=== PATIENT | female | born 1955 | race Caucasian/White ===

== ENCOUNTER → 2016-06-12 | Outpatient (CLI) | payer MEDICARE, BC ==
--- NOTE | 2016-06-12 15:39 | XR ---
EXAMINATION TYPE: XR chest 2V DATE OF EXAM: 06/12/2016 3:27 PM COMPARISON: 05/06/2016 INDICATION: Cough TECHNIQUE: Frontal and lateral views of the chest are obtained. FINDINGS: The heart size is normal. The pulmonary vasculature is normal. Small posterior left pleural effusion is present. This is stable from comparison. IMPRESSION: 1. Small left pleural effusion
== END | disposition home or self-care (01) ==
LOC: RADXRMAIN 15:13
PROVIDERS: ATTEND Internal Medicine
DX: J90 Pleural effusion, not elsewhere classified (principal)
CPT/HCPCS: 71020

== ENCOUNTER 2016-06-24 14:54 | Inpatient (IN) | payer MEDICARE, BC ==
[2016-06-24] MEDS ORDERED: ASPIRIN 325 MG TAB PO STA (15:38)
[2016-06-24] MEDS ORDERED: methylPREDNISolone SOD SUCCI 125 MG/2 ML VIAL IV STA (15:38)
--- NOTE | 2016-06-24 16:18 | ED ---
URI HPI - General Chief Complaint: Upper Respiratory Infection Stated Complaint: Chest Pain/Numbness Time Seen by Provider: 06/24/16 15:01 Source: patient Mode of arrival: wheelchair Limitations: no limitations - History of Present Illness Initial Comments: 61-year-old female with past medical history of CAD, DM, HLD, HTN, MN , renal disease on dialysis, and thyroid disease presented for evaluation of URI symptoms of productive cough of green sputum for the last month. She states that she has been following with her primary care physician Dr. Campos weekly during this time and has had multiple courses of antibiotics and steroids without relief. She called him today as she was continuing to cough today and he advised that she come to the ED for further evaluation. She states that she just finished a course of azithromycin and methylprednisolone and was actually given another prescription for a second Z-Teto. She has a long- standing history of second hand smoke exposure as well as an underlying history of asthma. She also states there is mold in the home that hasn't been properly investigated. - Related Data Home Medications Medication Instructions Recorded Confirmed Allopurinol [Zyloprim] 100 mg PO DAILY@0900 11/15/14 06/24/16 Gabapentin [Neurontin] 100 mg PO BID@09,209911/15/14 06/24/16 Omeprazole [PriLOSEC] 20 mg PO BID@0900,209901/31/15 06/24/16 Epoetin Adam [Epogen] 4,000 unit IV MOWEFR 03/03/15 06/24/16 Insulin Glargine [Lantus] 30 unit SQ HS 03/03/15 06/24/16 Loperamide [Imodium] 2 mg PO QID PRN 03/03/15 06/24/16 Mv-Min/Vit C/Glu/Karla HCl/Hc124 1 tab PO QID PRN 03/03/15 06/24/16 [Airborne Tablet Chewable] Sertraline [Zoloft] 50 mg PO HS 03/03/15 06/24/16 Atorvastatin [Lipitor] 40 mg PO HS 04/23/15 06/24/16 Clopidogrel [Plavix] 75 mg PO HS 04/23/15 06/24/16 Aspirin [Adult Low Dose Aspirin EC] 81 mg PO HS 05/06/16 06/24/16 Calcium Acetate [PhosLo] 667 mg PO AC-TID 05/06/16 06/24/16 Cinacalcet HCl [Sensipar] 30 mg PO HS 05/06/16 06/24/16 Furosemide [Lasix] 80 mg PO BID 05/06/16 06/24/16 Insulin Aspart [NovoLOG] See Protocol SQ AC-TID 05/06/16 06/24/16 Metoprolol Tartrate [Lopressor] 25 mg PO DIRECTED 05/06/16 06/24/16 Midodrine [ProAmatine] 5 mg PO MOWEFR 05/06/16 06/24/16 Slow-Mag 71.5mg 71.5 mg PO QAM 05/06/16 06/24/16 Slow-Mag 71.5mg 143 mg PO HS 05/06/16 06/24/16 Sodium Bicarbonate Tab 650 mg PO BID 05/06/16 06/24/16 Azithromycin [Zithromax Z-pack] See Taper PO DAILY 06/24/16 06/24/16 Isosorbide Mononitrate ER [Imdur] 30 mg PO QAM 06/24/16 06/24/16 Previous Rx's Medication Instructions Recorded Nitroglycerin Sl Tabs [Nitrostat] 0.4 mg SUBLINGUAL Q5M PRN #25 tab 11/19/14 Allergies Allergy/AdvReac Type Severity Reaction Status Date / Time adhesive Allergy Rash/Hives Verified 06/24/16 15:00 cephalexin monohydrate Allergy Rash/Hives Verified 06/24/16 15:00 [From Keflex] hydromorphone HCl Allergy Hallucinati Verified 06/24/16 15:00 [From Dilaudid] ons iodine Allergy Rash/Hives Verified 06/24/16 15:00 shellfish derived [Shrimp] Allergy Rash/Hives Verified 06/24/16 15:00 hydrocodone bitartrate AdvReac Itching Verified 06/24/16 15:00 [From Vicodin] morphine AdvReac Hallucinati Verified 06/24/16 15:00 ons tramadol AdvReac Itching Verified 06/24/16 15:00 artifical sweetener AdvReac Unknown Uncoded 06/24/16 15:00 Review of Systems ROS Statement: Those systems with pertinent positive or pertinent negative responses have been documented in the HPI. ROS Other: All systems not noted in ROS Statement are negative. Constitutional: Denies: fever, chills Eyes: Denies: eye pain, eye discharge ENT: Denies: ear pain, throat pain Respiratory: Reports: cough, dyspnea. Denies: wheezes, hemoptysis, stridor Cardiovascular: Denies: chest pain, palpitations, dyspnea on exertion Gastrointestinal: Denies: abdominal pain, nausea, vomiting Genitourinary: Denies: urgency, dysuria Musculoskeletal: Denies: back pain, joint swelling Skin: Denies: rash, lesions Neurological: Denies: headache, weakness Psychiatric: Denies: anxiety, depression Past Medical History Past Medical History: Coronary Artery Disease (CAD), Diabetes Mellitus, Hyperlipidemia, Hypertension, Myocardial Infarction ([place]), Renal Disease, Sleep Apnea/CPAP/BIPAP, Thyroid Disorder Additional Past Medical History / Comment(s): GOUT, ANEMIA REQUITRING BLOOD TRANSFUSION, MILD MITRAL,TRICUSID REGURGITATION Last Myocardial Infarction Date:: 11/14/2014 History of Any Multi-Drug Resistant Organisms: None Reported Past Surgical History: Coronary Bypass/CABG, Heart Catheterization With Stent Additional Past Surgical History / Comment(s): AV fistula, PREVIOUS STENTS TO CIRC AND LAD-HAD REOCCLUSION THEN HAD 3 VESSEL CABG Past Anesthesia/Blood Transfusion Reactions: Previous Problems w/ Anesthesia Additional Past Anesthesia/Blood Transfusion Reaction / Comment(s): POST OP DELIRIUM/AGITATION/PSYCHOSIS-RESOLVED. Date of Last Stent Placement:: 11/14/2014 Past Psychological History: Depression Smoking Status: Never smoker Past Alcohol Use History: None Reported Past Drug Use History: None Reported - Past Family History Mother Family Medical History: Diabetes Mellitus, Myocardial Infarction ([place]), Thyroid Disorder Additional Family Medical History / Comment(s): CABG, gout, hypothyroid Sister(s) Family Medical History: Diabetes Mellitus, Thyroid Disorder Father Family Medical History: Diabetes Mellitus General Exam Limitations: no limitations General appearance: alert, in no apparent distress Head exam: Present: atraumatic, normocephalic, normal inspection Eye exam: Present: normal appearance, PERRL. Absent: scleral icterus ENT exam: Present: normal exam, normal oropharynx Neck exam: Present: normal inspection, full ROM. Absent: tenderness Respiratory exam: Present: normal lung sounds bilaterally. Absent: respiratory distress, wheezes Cardiovascular Exam: Present: regular rate, normal rhythm. Absent: bradycardia , tachycardia GI/Abdominal exam: Present: soft. Absent: distended, tenderness, guarding Rectal exam: Present: deferred Extremities exam: Present: normal inspection, full ROM. Absent: tenderness Back exam: Present: normal inspection, full ROM. Absent: tenderness, CVA tenderness (R) Neurological exam: Present: alert, altered, oriented X3 Skin exam: Present: warm, dry, intact, normal color Course Vital Signs 06/24/16 06/24/16 06/24/16 14:56 17:55 18:49 Temperature 98.4 F 98.7 F 98.7 F Pulse Rate 71 75 75 Respiratory 16 20 20 Rate Blood Pressure 110/67 111/56 111/56 O2 Sat by Pulse 97 95 95 Oximetry Medical Decision Making - Medical Decision Making 61-year-old female with significant past medical history presented for evaluation of productive cough of green sputum and shortness of breath for the last month. She states that she has been following up with her primary care physician and has been on multiple courses of antibiotics without any relief. She further states that she was supposed to go to dialysis yesterday but skipped due to not feeling well and rescheduled for today which she also skipped. On physical examination she has clear lung sounds auscultation, a moderate cough throughout physical exam and fistula to the right upper extremity. We'll obtain chest x-ray, labs, and provide breathing treatments and steroids. Labs reveal market acute on chronic renal failure with a creatinine greater than 9 as well as hyperkalemia. The rest of her labs revealed no significant abnormalities. The patient was reevaluated and stated and improvement in her respiratory status. She was informed of her lab results and due to the worsening of her kidney function and no dialysis availability until Sunday she agreed to stay for admission for dialysis. Dr. Lang accepted the admission without further request. Admission order placed in bed request submitted. - Lab Data Result diagrams: 06/24/16 16:17 06/24/16 16: Lab Results 06/24/16 06/24/16 06/24/16 Range/Units 16:17 16:17 16:17 WBC 10.7 H (3.8-10.6) k/uL RBC 3.52 L (3.80-5.40) m/uL Hgb 10.3 L (11.4-16.0) gm/dL Hct 34.6 (34.0-46.0) % MCV 98.3 (80.0-100.0) fL MCH 29.3 (25.0-35.0) pg MCHC 29.8 L (31.0-37.0) g/dL RDW 20.5 H (11.5-15.5) % Plt Count 208 (150-450) k/uL Neutrophils % 76 % Lymphocytes % 16 % Monocytes % 4 % Eosinophils % 3 % Basophils % 1 % Neutrophils # 8.1 H (1.3-7.7) k/uL Lymphocytes # 1.7 (1.0-4.8) k/uL Monocytes # 0.4 (0-1.0) k/uL Eosinophils # 0.3 (0-0.7) k/uL Basophils # 0.1 (0-0.2) k/uL Hypochromasia Marked Poikilocytosis Slight Anisocytosis Moderate Macrocytosis Moderate Sodium (137-145) mmol/L Potassium (3.5-5.1) mmol/L Chloride (98-107) mmol/L Carbon Dioxide (22-30) mmol/L Anion Gap mmol/L BUN (7-17) mg/dL Creatinine (0.52-1.04) mg/dL Est GFR (MDRD) Af Amer (>60 ml/min/1.73 sqM) Est GFR (MDRD) Non-Af (>60 ml/min/1.73 sqM) Glucose (74-99) mg/dL Calcium (8.4-10.2) mg/dL Troponin I 0.098 H* (0.000-0.034) ng/mL Influenza Type A RNA Not Detected (Not Detectd) Influenza Type B (PCR) Not Detected (Not Detectd) 06/24/16 Range/Units 16:17 WBC (3.8-10.6) k/uL RBC (3.80-5.40) m/uL Hgb (11.4-16.0) gm/dL Hct (34.0-46.0) % MCV (80.0-100.0) fL MCH (25.0-35.0) pg MCHC (31.0-37.0) g/dL RDW (11.5-15.5) % Plt Count (150-450) k/uL Neutrophils % % Lymphocytes % % Monocytes % % Eosinophils % % Basophils % % Neutrophils # (1.3-7.7) k/uL Lymphocytes # (1.0-4.8) k/uL Monocytes # (0-1.0) k/uL Eosinophils # (0-0.7) k/uL Basophils # (0-0.2) k/uL Hypochromasia Poikilocytosis Anisocytosis Macrocytosis Sodium 143 (137-145) mmol/L Potassium 5.4 H (3.5-5.1) mmol/L Chloride 104 (98-107) mmol/L Carbon Dioxide 22 (22-30) mmol/L Anion Gap 17 mmol/L BUN 47 H (7-17) mg/dL Creatinine 9.03 H* (0.52-1.04) mg/dL Est GFR (MDRD) Af Amer 5 (>60 ml/min/1.73 sqM) Est GFR (MDRD) Non-Af 4 (>60 ml/min/1.73 sqM) Glucose 181 H (74-99) mg/dL Calcium 7.6 L (8.4-10.2) mg/dL Troponin I (0.000-0.034) ng/mL Influenza Type A RNA (Not Detectd) Influenza Type B (PCR) (Not Detectd) 06/25/16 02:55 EKG shows normal sinus rhythm with a ventricular rate of 72 WATSON 146, QRS 96, QT/ QTC 4:30/470. This is unchanged from previous exams. Disposition Clinical Impression: Acute on chronic renal failure, Cough Disposition: ADMITTED IP TO THIS HOSP Condition: Stable Decision to Admit Reason: Admit from EC Decision Date: 06/24/16 Decision Time: 17:53
[2016-06-24 16:31] LABS: Anisocytosis Moderate; Basophils # (A) 0.1 k/uL (0-0.2); Basophils % (A) 1 %; CH 30.1; CHCM 30.7; Eosinophils # (A) 0.3 k/uL (0-0.7); Eosinophils % (A) 3 %; HCT 34.6 % (34.0-46.0); HDW 3.46; HGB 10.3 gm/dL (11.4-16.0); Hypochromasia Marked; Luc % (Auto) 1; Lymphocytes # (A) 1.7 k/uL (1.0-4.8); Lymphocytes % (A) 16 %; MCH 29.3 pg (25.0-35.0); MCHC 29.8 g/dL (31.0-37.0); MCV 98.3 fL (80.0-100.0); Macrocytosis Moderate; Mean Platelet Volume 8.4; Monocytes # (A) 0.4 k/uL (0-1.0); Monocytes % (A) 4 %; Neutrophils # (A) 8.1 k/uL (1.3-7.7); Neutrophils % (A) 76 %; Poikilocytosis Slight; RBC 3.52 m/uL (3.80-5.40); RDW 20.5 % (11.5-15.5); WBC 10.7 k/uL (3.8-10.6); WBC (Perox) 10.82
[2016-06-24 16:38] LABS: Calcium 7.6 mg/dL (8.4-10.2); Potassium 5.4 mmol/L (3.5-5.1)
--- NOTE | 2016-06-24 17:05 | XR ---
EXAMINATION TYPE: XR chest 2V DATE OF EXAM: 06/24/2016 4:38 PM COMPARISON: 06/12/2016 HISTORY: Cough for weeks TECHNIQUE: Frontal and lateral views of the chest are obtained. FINDINGS: There is mild blunting of left costophrenic angle. There is no heart failure. There are st ernal wires. There are no hilar masses. The bony thorax is intact. IMPRESSION: There is pleural diaphragmatic scarring or fluid on the left side that is unchanged comp ared to last exam. Borderline cardiomegaly. No gross heart failure.
[2016-06-24] MEDS ORDERED: NALOXONE 0.4 MG/ML 1 ML VIAL IV PRN (17:47)
[2016-06-24] MEDS ORDERED: LOPERAMIDE 2 MG CAP PO PRN (17:51)
[2016-06-24 19:03] LABS: Glucose,Whole Blood 173 mg/dL (75-99)
[2016-06-24 21:05] LABS: Glucose,Whole Blood 346 mg/dL (75-99)
[2016-06-24] MEDS: ATORVASTATIN 40 MG TAB PO SCH (21:51)
[2016-06-24] MEDS: CLOPIDOGREL 75 MG TAB PO SCH (21:51)
[2016-06-24] MEDS: INSULIN LISPRO (humaLOG) 300 UNIT/3 ML VIAL SQ SCH (21:51)
[2016-06-24] MEDS: INSULIN GLARGINE 100 UNIT/ML 10 ML VIAL SQ SCH (21:51)
[2016-06-24] MEDS: FUROSEMIDE 80 MG TAB PO SCH (21:51)
[2016-06-24] MEDS: GABAPENTIN 100 MG CAP PO SCH (21:51)
[2016-06-24] MEDS: CINACALCET 30 MG TAB PO SCH (21:51)
[2016-06-24] MEDS: SERTRALINE 50 MG TAB PO SCH (21:52)
[2016-06-24] MEDS: PANTOPRAZOLE 40 MG TABLET PO SCH (21:52)
[2016-06-24] MEDS: SODIUM BICARBONATE TAB 650 MG TAB PO SCH (21:52)
[2016-06-24] MEDS: guaiFENesin-DM 100-10MG/5ML 10 ML CUP PO PRN (21:53)
[2016-06-25] MEDS: guaiFENesin-DM 100-10MG/5ML 10 ML CUP PO PRN ×3 (03:23→18:34)
[2016-06-25 06:00] LABS: Glucose,Whole Blood 300 mg/dL (75-99)
[2016-06-25 06:11] LABS: Anisocytosis Slight; Basophils % (A) 0 %; CHCM 28.6; Eosinophils % (A) 0 %; HCT 36.3 % (34.0-46.0); HDW 3.26; HGB 10.7 gm/dL (11.4-16.0); Hypochromasia Marked; Luc # (Auto) 0.04; Luc % (Auto) 0; Lymphocytes # (A) 0.6 k/uL (1.0-4.8); Lymphocytes % (A) 6 %; MCHC 29.5 g/dL (31.0-37.0); MCV 101.5 fL (80.0-100.0); Macrocytosis Moderate; Mean Platelet Volume 7.7; Monocytes # (A) 0.2 k/uL (0-1.0); Monocytes % (A) 2 %; Neutrophils % (A) 91 %; RBC 3.57 m/uL (3.80-5.40); RDW 19.8 % (11.5-15.5); WBC 9.9 k/uL (3.8-10.6); WBC (Perox) 10.62
[2016-06-25 06:20] LABS: Calcium 7.4 mg/dL (8.4-10.2)
[2016-06-25] MEDS: INSULIN LISPRO (humaLOG) 300 UNIT/3 ML VIAL SQ SCH ×5 (06:22→21:06)
[2016-06-25] MEDS: CALCIUM ACETATE 667 MG CAP PO SCH ×3 (06:22→17:11)
[2016-06-25 06:30] LABS: Potassium 7.5 mmol/L (3.5-5.1)
[2016-06-25] MEDS ORDERED: INSULIN REGULAR 100 UNIT/ML VIAL IV ONE (06:48)
[2016-06-25] MEDS ORDERED: SODIUM POLYSTYRENE SULFONATE 15 GM/60 ML BOTTLE PO STA (06:49)
[2016-06-25] MEDS ORDERED: DEXTROSE 50%-WATER 50 ML SYRINGE IVP STA (06:49)
[2016-06-25] MEDS ORDERED: CALCIUM CHLORIDE 100 MG/ML 10 ML SYRINGE IVP STA (07:20)
[2016-06-25] MEDS ORDERED: CALCIUM GLUCONATE 1,000 MG in SODIUM CHLORIDE 0.9% 100 ML IVPB ONE (07:30)
[2016-06-25] MEDS: PANTOPRAZOLE 40 MG TABLET PO SCH ×2 (07:55→21:07)
--- NOTE | 2016-06-25 09:34 | CONS ---
DATE OF CONSULTATION: 06/25/2016 REASON FOR CONSULTATION: End-stage renal disease. HISTORY OF PRESENT ILLNESS: Patient is a 61-year-old female with a history of end-stage renal disease on hemodialysis on a Sunday, Sunday, Sunday schedule via left arm AV fistula. She was admitted to the hospital with complaints of shortness of breath, not feeling well. The patient believes she has mold at her house. She was treated with Z-Teto recently as well as steroids for an upper respiratory tract infection. The patient denied fever. She did have some cough. No chest pains. No nausea or vomiting. Her potassium yesterday was at 5.4, and this morning it was 7.5. Patient states she has been occasionally missing her dialysis treatments as outpatient because she was not feeling well. 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 Gout. PAST SURGICAL HISTORY: Cardiac catheterization, coronary artery bypass, AV fistula with interventions. SOCIAL HISTORY: Negative for smoking, drug abuse or alcohol abuse. Medications at home prior to admission included: 1. Lipitor. 2. Plavix. 3. Aspirin. 4. PhosLo. 5. Sensipar. 6. Lasix. 7. Insulin. 8. Lopressor. 9. Midodrine. 10. Magnesium. 11. Zithromax. 12. Imdur. 13. Zoloft. 14. Procrit. 15. Neurontin. 16. Prilosec. 17. Zyloprim. ALLERGIES: MULTIPLE INCLUDE: TRAMADOL, VICODIN, IODINE, DILAUDID, KEFLEX AND ADHESIVE. REVIEW OF SYSTEMS: As per HPI. Other systems negative. On examination, the patient is comfortable, awake, alert, oriented x3, not in any acute distress. Blood pressure is 116/79, heart rate 74 per minute. She is afebrile. Examination of the heart S1 and S2. Examination of the lungs: Bilateral breath sounds are heard. ABDOMEN: Soft, nontender. Examination of lower extremities shows no significant edema. LITIGATION PARALEGAL exam is grossly intact. Labs show sodium 142, potassium 7.5. Hemoglobin 10.7 g/dL. ASSESSMENT: 1. End-stage renal disease on hemodialysis on a Sunday, Sunday, Sunday schedule, potassium is significantly elevated today at 7.5. We will arrange for a stat treatment. Patient has received IV treatment for the hyperkalemia. She will be dialyzed again tomorrow which is her regular day. 2. Recent upper respiratory tract infection, status post antibiotics and steroids. 3. Anemia of chronic disease. 4. Metabolic bone disease. 5. History of coronary artery disease status post coronary artery bypass surgery and coronary stent. 6. Chronic kidney disease bone mineral disorder. PLAN: Hemodialysis today and then we will repeat in a.m., as tomorrow is patient's regular hemodialysis day. Thank you for this consultation. We will continue to follow the patient with you during her hospitalization.
[2016-06-25 11:58] LABS: Glucose,Whole Blood 176 mg/dL (75-99)
[2016-06-25] MEDS: ISOSORBIDE MONONITRATE ER 30 MG TAB.ER.24H PO SCH (12:35)
[2016-06-25] MEDS: SODIUM BICARBONATE TAB 650 MG TAB PO SCH ×2 (12:35→21:07)
[2016-06-25] MEDS: FUROSEMIDE 80 MG TAB PO SCH ×2 (12:35→21:06)
[2016-06-25] MEDS: GABAPENTIN 100 MG CAP PO SCH ×2 (12:35→21:06)
[2016-06-25] MEDS: ALLOPURINOL 100 MG TAB PO SCH (12:36)
--- NOTE | 2016-06-25 13:29 | P.HPIM ---
History of Present Illness H&P Date: 06/25/16 Chief Complaint: Cough and not feeling well This is 61-year-old female with complex past medical history noted below who presented to the emergency room not feeling well. Patient states that for the past couple of month she has been having problems with persistent cough and congestion. She denies any significant shortness of breath. She said that she was treated with multiple courses of antibiotic for suspected upper respiratory tract infection with minimal relief. She was not feeling well for the past few days and missed her dialysis twice. She presented to the emergency room and was found to be hyperkalemic and was admitted to the hospital for further evaluation. Patient admits there is mold in her basement which causing her ALLERGIES and cough. She said that she is working on moving out of her house. Review of Systems Review of system: 14 points review of systems were obtained and were negative except to what were mentioned in the HPI. Past Medical History Past Medical History: Coronary Artery Disease (CAD), Diabetes Mellitus, Hyperlipidemia, Hypertension, Myocardial Infarction ([place]), Renal Disease, Sleep Apnea/CPAP/BIPAP, Thyroid Disorder Additional Past Medical History / Comment(s): GOUT, ANEMIA REQUITRING BLOOD TRANSFUSION, MILD MITRAL,TRICUSID REGURGITATION Last Myocardial Infarction Date:: 11/14/2014 History of Any Multi-Drug Resistant Organisms: None Reported Past Surgical History: Coronary Bypass/CABG, Heart Catheterization With Stent Additional Past Surgical History / Comment(s): AV fistula, PREVIOUS STENTS TO CIRC AND LAD-HAD REOCCLUSION THEN HAD 3 VESSEL CABG Past Anesthesia/Blood Transfusion Reactions: Previous Problems w/ Anesthesia Additional Past Anesthesia/Blood Transfusion Reaction / Comment(s): POST OP DELIRIUM/AGITATION/PSYCHOSIS-RESOLVED. Date of Last Stent Placement:: 11/14/2014 Past Psychological History: Depression Smoking Status: Never smoker Past Alcohol Use History: None Reported Past Drug Use History: None Reported - Past Family History Mother Family Medical History: Diabetes Mellitus, Myocardial Infarction ([place]), Thyroid Disorder Additional Family Medical History / Comment(s): CABG, gout, hypothyroid Sister(s) Family Medical History: Diabetes Mellitus, Thyroid Disorder Father Family Medical History: Diabetes Mellitus Medications and Allergies Home Medications Medication Instructions Recorded Confirmed Type Allopurinol [Zyloprim] 100 mg PO DAILY@0900 11/15/14 06/24/16 History Gabapentin [Neurontin] 100 mg PO BID@0900,2100 06/28/15 02/04/17 History Omeprazole [PriLOSEC] 20 mg PO BID@0900,2100 01/31/15 06/24/16 History Epoetin Adam [Epogen] 4,000 unit IV MOWEFR 03/03/15 06/24/16 History Insulin Glargine [Lantus] 30 unit SQ HS 03/03/15 06/24/16 History Loperamide [Imodium] 2 mg PO QID PRN 03/03/15 06/24/16 History Mv-Min/Vit C/Glu/Karla HCl/Hc124 1 tab PO QID PRN 03/03/15 06/24/16 History [Airborne Tablet Chewable] Sertraline [Zoloft] 50 mg PO HS 03/03/15 06/24/16 History Atorvastatin [Lipitor] 40 mg PO HS 04/23/15 06/24/16 History Clopidogrel [Plavix] 75 mg PO HS 04/23/15 06/24/16 History Aspirin [Adult Low Dose Aspirin EC] 81 mg PO HS 05/06/16 06/24/16 History Calcium Acetate [PhosLo] 667 mg PO AC-TID 05/06/16 06/24/16 History Cinacalcet HCl [Sensipar] 30 mg PO HS 05/06/16 06/24/16 History Furosemide [Lasix] 80 mg PO BID 05/06/16 06/24/16 History Insulin Aspart [NovoLOG] See Protocol SQ AC-TID 05/06/16 06/24/16 History Metoprolol Tartrate [Lopressor] 25 mg PO DIRECTED 05/06/16 06/24/16 History Midodrine [ProAmatine] 5 mg PO MOWEFR 05/06/16 06/24/16 History Slow-Mag 71.5mg 71.5 mg PO QAM 05/06/16 06/24/16 History Slow-Mag 71.5mg 143 mg PO HS 05/06/16 06/24/16 History Sodium Bicarbonate Tab 650 mg PO BID 05/06/16 06/24/16 History Azithromycin [Zithromax Z-pack] See Taper PO DAILY 06/24/16 06/24/16 History Isosorbide Mononitrate ER [Imdur] 30 mg PO QAM 06/24/16 06/24/16 History Allergies Allergy/AdvReac Type Severity Reaction Status Date / Time adhesive Allergy Rash/Hives Verified 06/24/16 15:00 cephalexin monohydrate Allergy Rash/Hives Verified 06/24/16 15:00 [From Keflex] hydromorphone HCl Allergy Hallucinati Verified 06/24/16 15:00 [From Dilaudid] ons iodine Allergy Rash/Hives Verified 06/24/16 15:00 shellfish derived [Shrimp] Allergy Rash/Hives Verified 06/24/16 15:00 hydrocodone bitartrate AdvReac Itching Verified 06/24/16 15:00 [From Vicodin] morphine AdvReac Hallucinati Verified 06/24/16 15:00 ons tramadol AdvReac Itching Verified 06/24/16 15:00 artifical sweetener AdvReac Unknown Uncoded 06/24/16 15:00 Physical Exam Vitals: Vital Signs Temp Pulse Pulse Resp BP BP Pulse Ox 06/25/16 12:57 95 98 06/25/16 12:00 97.2 F L 80 16 125/71 96 06/25/16 07:55 16 06/25/16 07:51 97.1 F L 84 16 123/73 98 06/25/16 04:00 97.5 F L 74 17 116/79 95 06/24/16 23:59 97.4 F L 81 16 132/76 94 L 06/24/16 20:00 98.0 F 77 17 112/60 94 L 06/24/16 18:55 97.8 F 76 20 114/66 97 06/24/16 18:49 98.7 F 75 20 111/56 95 06/24/16 17:55 98.7 F 75 20 111/56 95 Intake and Output 06/24/16 06/25/16 06/25/16 22:59 06:59 14:59 Intake Total 340 120 218 Output Total 1 101 1999 Balance 339 73 -1789 Intake: IV 100 Calcium Gluconate 1,000 100 mg In Sodium Chloride 0.9 % 100 ml @ 100 mls/hr IVPB ONCE ONE Rx#: [id number] Oral 340 120 118 Output: Urine 1 101 Other 1999 Other: Voiding Method Toilet Toilet Toilet # Voids 150 1 Weight 97.3 kg 96.9 kg General: The patient is awake and alert, in no distress Eye: there is normal conjunctiva bilaterally. Neck: The neck is supple, there is no JVD. Cardiovascular: Normal S1-S2, no S3-S4, no murmurs. Respiratory: Lungs clear to auscultation bilaterally Gastrointestinal: Abdomen is soft, nontender Musculoskeletal: There is no pedal edema. Neurological:. Speech is normal. Skin: Skin is warm and dry Results CBC & Chem 7: 06/25/16 05:53 06/25/16 08:49 Labs: Abnormal Lab Results - Last 24 Hours (Table) 06/24/16 06/24/16 06/25/16 Range/Units 19:01 21:04 05:53 RBC 3.57 L (3.80-5.40) m/uL Hgb 10.7 L (11.4-16.0) gm/dL MCV 101.5 H (80.0-100.0) fL MCHC 29.5 L (31.0-37.0) g/dL RDW 19.8 H (11.5-15.5) % Neutrophils # 9.0 H (1.3-7.7) k/uL Lymphocytes # 0.6 L (1.0-4.8) k/uL Potassium (3.5-5.1) mmol/L BUN (7-17) mg/dL Creatinine (0.52-1.04) mg/dL Glucose (74-99) mg/dL POC Glucose (mg/dL) 173 H 346 H (75-99) mg/dL Calcium (8.4-10.2) mg/dL 06/25/16 06/25/16 06/25/16 Range/Units 05:53 05:59 08:49 RBC (3.80-5.40) m/uL Hgb (11.4-16.0) gm/dL MCV (80.0-100.0) fL MCHC (31.0-37.0) g/dL RDW (11.5-15.5) % Neutrophils # (1.3-7.7) k/uL Lymphocytes # (1.0-4.8) k/uL Potassium 7.5 H* 5.6 H (3.5-5.1) mmol/L BUN 57 H (7-17) mg/dL Creatinine 9.91 H* (0.52-1.04) mg/dL Glucose 308 H (74-99) mg/dL POC Glucose (mg/dL) 300 H (75-99) mg/dL Calcium 7.4 L (8.4-10.2) mg/dL 06/25/16 Range/Units 11:43 RBC (3.80-5.40) m/uL Hgb (11.4-16.0) gm/dL MCV (80.0-100.0) fL MCHC (31.0-37.0) g/dL RDW (11.5-15.5) % Neutrophils # (1.3-7.7) k/uL Lymphocytes # (1.0-4.8) k/uL Potassium (3.5-5.1) mmol/L BUN (7-17) mg/dL Creatinine (0.52-1.04) mg/dL Glucose (74-99) mg/dL POC Glucose (mg/dL) 176 H (75-99) mg/dL Calcium (8.4-10.2) mg/dL Thrombosis Risk Factor Assmnt - Choose All That Apply Any of the Below Risk Factors Present?: Yes Each Factor Represents 1 point: Age 41-60 years, Obesity (BMI >25), Serious lung disease incl. pneumonia (< 1month), Swollen legs (current) Thrombosis Risk Factor Assessment Total Risk Factor Score: 4 Thrombosis Risk Factor Assessment Level: Moderate Risk Assessment and Plan Plan: 1. 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 Patient is in the process of finding a new house. She received IV Solu-Medrol in the emergency room. No wheezing at this time. We will continue bronchodilators as needed. No antibiotic needed. 2. End-stage renal disease on hemodialysis: Nephrology following. Patient is getting dialysis today in the room. 3. Hyperkalemia: Treated medically. Will improve with dialysis. We will recheck blood work in the morning 4. Type 2 diabetes mellitus, insulin-dependent. Blood glucose within acceptable range. 5. Anemia of chronic disease 6. Mixed hyperlipidemia 7. Coronary artery disease with prior stent placement: Continue medical management Patient will be dialyzed today. Repeat lab work in the morning. Anticipate discharge home tomorrow.
--- NOTE | 2016-06-25 15:23 | XR ---
EXAMINATION TYPE: XR chest 2V DATE OF EXAM: 06/25/2016 2:21 PM COMPARISON: 06/24/2016 HISTORY: 61-year-old female with cough. TECHNIQUE: Frontal and lateral views FINDINGS: Heart is upper limits of normal in size. Median sternotomy wires are present. Mild diffuse interstiti al prominence and trace left pleural effusion. No consolidation. IMPRESSION: Interstitial prominence and trace left pleural effusion. Correlate for possible etiologies including mild CHF, atypical pneumonias, or bronchitis.
[2016-06-25 17:09] LABS: Glucose,Whole Blood 308 mg/dL (75-99)
[2016-06-25 20:56] LABS: Glucose,Whole Blood 307 mg/dL (75-99)
[2016-06-25] MEDS: INSULIN GLARGINE 100 UNIT/ML 10 ML VIAL SQ SCH (21:02)
[2016-06-25] MEDS: CLOPIDOGREL 75 MG TAB PO SCH (21:05)
[2016-06-25] MEDS: ASPIRIN 81 MG CHEW PO SCH (21:05)
[2016-06-25] MEDS: CINACALCET 30 MG TAB PO SCH (21:05)
[2016-06-25] MEDS: ATORVASTATIN 40 MG TAB PO SCH (21:05)
[2016-06-25] MEDS: HEPARIN SODIUM,PORCINE 5,000 UNIT/ML 1 ML VIAL SQ SCH (21:06)
[2016-06-25] MEDS: SERTRALINE 50 MG TAB PO SCH (21:07)
[2016-06-26] MEDS: guaiFENesin-DM 100-10MG/5ML 10 ML CUP PO PRN ×3 (00:13→20:50)
[2016-06-26 06:11] LABS: Anisocytosis Slight; Basophils % (A) 1 %; CH 29.6; CHCM 29.6; Eosinophils # (A) 0.1 k/uL (0-0.7); Eosinophils % (A) 2 %; HCT 31.6 % (34.0-46.0); HDW 3.17; Hypochromasia Marked; Luc # (Auto) 0.05; Luc % (Auto) 1; Lymphocytes # (A) 1.6 k/uL (1.0-4.8); Lymphocytes % (A) 19 %; MCH 29.3 pg (25.0-35.0); MCHC 29.2 g/dL (31.0-37.0); MCV 100.4 fL (80.0-100.0); Macrocytosis Moderate; Monocytes # (A) 0.3 k/uL (0-1.0); Monocytes % (A) 4 %; Neutrophils % (A) 74 %; RBC 3.14 m/uL (3.80-5.40); RDW 19.9 % (11.5-15.5); WBC 8.1 k/uL (3.8-10.6); WBC (Perox) 8.37
[2016-06-26 06:15] LABS: HGB 9.2 gm/dL (11.4-16.0)
[2016-06-26 06:16] LABS: Calcium 7.1 mg/dL (8.4-10.2); Magnesium 1.7 mg/dL (1.6-2.3); Phosphorous 4.4 mg/dL (2.5-4.5)
[2016-06-26 06:28] LABS: Glucose,Whole Blood 160 mg/dL (75-99)
[2016-06-26] MEDS: CALCIUM ACETATE 667 MG CAP PO SCH ×3 (07:04→17:25)
[2016-06-26] MEDS: INSULIN LISPRO (humaLOG) 300 UNIT/3 ML VIAL SQ SCH ×7 (07:04→21:57)
[2016-06-26] MEDS: FUROSEMIDE 80 MG TAB PO SCH ×2 (10:15→20:49)
[2016-06-26] MEDS: HEPARIN SODIUM,PORCINE 5,000 UNIT/ML 1 ML VIAL SQ SCH ×2 (10:15→20:50)
[2016-06-26] MEDS: METOPROLOL TARTRATE 25 MG TAB PO SCH ×2 (10:15→20:50)
[2016-06-26] MEDS: GABAPENTIN 100 MG CAP PO SCH ×2 (10:15→20:49)
[2016-06-26] MEDS: ISOSORBIDE MONONITRATE ER 30 MG TAB.ER.24H PO SCH (10:15)
[2016-06-26] MEDS: MIDODRINE 5 MG TAB PO SCH (10:16)
[2016-06-26] MEDS: SODIUM BICARBONATE TAB 650 MG TAB PO SCH ×2 (10:16→20:49)
[2016-06-26] MEDS: PANTOPRAZOLE 40 MG TABLET PO SCH ×2 (10:16→20:50)
[2016-06-26] MEDS: ALLOPURINOL 100 MG TAB PO SCH (10:16)
--- NOTE | 2016-06-26 11:19 | P.PN ---
Subjective Patient presented with cough that did not improve with antibiotics over the past month. Suspicion of mold ALLERGY. However patient is still having a course productive cough with yellowish sputum. Pulmonary service will be consulted. She is scheduled for hemodialysis today. She denies any chest pain. Denies any nausea or vomiting. Denies any bowel movement changes or urinary symptoms. Objective - Vital Signs Vital signs: Vital Signs Temp 97.1 F L 06/26/16 11:01 Pulse 78 06/26/16 11:04 Resp 18 06/26/16 11:04 BP 118/62 06/26/16 11:01 Pulse Ox 96 06/26/16 11:01 Intake & Output 06/25/16 06/26/16 06/26/16 18:59 06:59 18:59 Intake Total 218 240 118 Output Total 1999 Balance -1782 240 118 Weight 97.1 kg Intake: IV 100 Calcium Gluconate 1,000 100 mg In Sodium Chloride 0.9 % 100 ml @ 100 mls/hr IVPB ONCE ONE Rx#: [id number] Oral 118 240 118 Output: Other 1999 Other: Voiding Method Toilet Toilet Toilet # Voids 2 - Exam Head normocephalic Neck supple Lungs clear to auscultation bilaterally no wheezing or crackles Heart regular rate and rhythm S1-S2, no rub or gallop Abdomen is soft nontender nondistended positive bowel sounds no hepatosplenomegaly Extremities no edema Neuro alert and orientated to 3 - Labs CBC & Chem 7: 06/26/16 05:41 06/26/16 05:41 Labs: Abnormal Lab Results - Last 24 Hours (Table) 06/25/16 06/25/16 06/25/16 Range/Units 11:43 16:55 20:54 RBC (3.80-5.40) m/uL Hgb (11.4-16.0) gm/dL Hct (34.0-46.0) % MCV (80.0-100.0) fL MCHC (31.0-37.0) g/dL RDW (11.5-15.5) % BUN (7-17) mg/dL Creatinine (0.52-1.04) mg/dL Glucose (74-99) mg/dL POC Glucose (mg/dL) 176 H 308 H 307 H (75-99) mg/dL Calcium (8.4-10.2) mg/dL 06/26/16 06/26/16 06/26/16 Range/Units 05:41 05:41 06:26 RBC 3.14 L (3.80-5.40) m/uL Hgb 9.2 L D (11.4-16.0) gm/dL Hct 31.6 L (34.0-46.0) % MCV 100.4 H (80.0-100.0) fL MCHC 29.2 L (31.0-37.0) g/dL RDW 19.9 H (11.5-15.5) % BUN 49 H (7-17) mg/dL Creatinine 7.66 H* (0.52-1.04) mg/dL Glucose 180 H (74-99) mg/dL POC Glucose (mg/dL) 160 H (75-99) mg/dL Calcium 7.1 L (8.4-10.2) mg/dL Assessment and Plan Plan: 1. 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 Patient is in the process of finding a new house. She will be staying with her daughter. She received IV Solu-Medrol in the emergency room. No wheezing at this time. We will continue bronchodilators as needed. No antibiotic needed. Patient continues to have no improvement in her cough. We'll consult pulmonary service 2. End-stage renal disease on hemodialysis: Nephrology following. Patient scheduled for hemodialysis today 3. Hyperkalemia: Treated medically and with hemodialysis. Hyperkalemia resolved 4. Type 2 diabetes mellitus, insulin-dependent. Continue insulin and sliding scale coverage 5. Anemia of chronic disease. Continue the Aranesp 6. Mixed hyperlipidemia 7. Coronary artery disease with prior stent placement: Continue medical management
[2016-06-26 11:48] LABS: Glucose,Whole Blood 123 mg/dL (75-99)
[2016-06-26] MEDS ORDERED: DARBEPOETIN ALFA 40 MCG/0.4 ML SYRINGE SQ SCH (12:00)
[2016-06-26] MEDS ORDERED: DARBEPOETIN ALFA 40 MCG/0.4 ML SYRINGE IV SCH (12:00)
[2016-06-26 17:30] LABS: Glucose,Whole Blood 104 mg/dL (75-99)
[2016-06-26] MEDS ORDERED: GELATIN SPONGE,ABSORB (SMALL) 1 EACH SPONGE ONE (18:00)
[2016-06-26 18:13] LABS: Hepatitis B Surface Ag Index 0.06
--- NOTE | 2016-06-26 18:55 | P.CNPUL ---
History of Present Illness Consult date: 06/26/16 Requesting physician: Zehra Lang Reason for consult: cough Chief complaint: Cough and not feeling well History of present illness: This is a 61-year-old female with history of multiple medical problems including coronary artery disease, chronic renal failure on dialysis/ hemodialysis, history of previous [place], obstructive sleep apnea syndrome on BiPAP at home, history of hypothyroidism, diabetes, and hyperlipidemia. Patient is also known to have history of hypertension. She presented to the ER with complaints of chronic cough and not feeling well. Patient describes the cough sometimes is productive with whitish phlegm, but she denies any fever no chills no hemoptysis and no wheezing. Patient also describes symptoms of chronic GERD supposedly well controlled as long as she takes Protonix. Chest x-ray on presentation which I reviewed myself showed evidence of mild interstitial edema. No clear-cut evidence of pneumonia, and the patient did not have any leukocytosis, considering her cough symptoms, I was asked to see her on consultation. In the meantime the patient was placed on Lasix, she is back on her Protonix, and she is undergoing hemodialysis during my evaluation. Patient has been chronically on antibiotics for the last few weeks. Review of Systems 12 point review of systems were obtained, please refer to pertinent positives and negatives in HPI Past Medical History Past Medical History: Coronary Artery Disease (CAD), Diabetes Mellitus, Hyperlipidemia, Hypertension, Myocardial Infarction ([place]), Renal Disease, Sleep Apnea/CPAP/BIPAP, Thyroid Disorder Additional Past Medical History / Comment(s): GOUT, ANEMIA REQUITRING BLOOD TRANSFUSION, MILD MITRAL,TRICUSID REGURGITATION Last Myocardial Infarction Date:: 11/14/2014 History of Any Multi-Drug Resistant Organisms: None Reported Past Surgical History: Coronary Bypass/CABG, Heart Catheterization With Stent Additional Past Surgical History / Comment(s): AV fistula, PREVIOUS STENTS TO CIRC AND LAD-HAD REOCCLUSION THEN HAD 3 VESSEL CABG Past Anesthesia/Blood Transfusion Reactions: Previous Problems w/ Anesthesia Additional Past Anesthesia/Blood Transfusion Reaction / Comment(s): POST OP DELIRIUM/AGITATION/PSYCHOSIS-RESOLVED. Date of Last Stent Placement:: 11/14/2014 Past Psychological History: Depression Smoking Status: Never smoker Past Alcohol Use History: None Reported Past Drug Use History: None Reported - Past Family History Mother Family Medical History: Diabetes Mellitus, Myocardial Infarction ([place]), Thyroid Disorder Additional Family Medical History / Comment(s): CABG, gout, hypothyroid Sister(s) Family Medical History: Diabetes Mellitus, Thyroid Disorder Father Family Medical History: Diabetes Mellitus Medications and Allergies Home Medications Medication Instructions Recorded Confirmed Type Allopurinol [Zyloprim] 100 mg PO DAILY@0900 11/15/14 06/24/16 History Gabapentin [Neurontin] 100 mg PO BID@0900,209911/15/14 06/24/16 History Omeprazole [PriLOSEC] 20 mg PO BID@0900,209901/31/15 06/24/16 History Epoetin Adam [Epogen] 4,000 unit IV MOWEFR 03/03/15 06/24/16 History Insulin Glargine [Lantus] 30 unit SQ HS 03/03/15 06/24/16 History Loperamide [Imodium] 2 mg PO QID PRN 03/03/15 06/24/16 History Mv-Min/Vit C/Glu/Karla HCl/Hc124 1 tab PO QID PRN 03/03/15 06/24/16 History [Airborne Tablet Chewable] Sertraline [Zoloft] 50 mg PO HS 03/03/15 06/24/16 History Atorvastatin [Lipitor] 40 mg PO HS 04/23/15 06/24/16 History Clopidogrel [Plavix] 75 mg PO HS 04/23/15 06/24/16 History Aspirin [Adult Low Dose Aspirin EC] 81 mg PO HS 05/06/16 06/24/16 History Calcium Acetate [PhosLo] 667 mg PO AC-TID 05/06/16 06/24/16 History Cinacalcet HCl [Sensipar] 30 mg PO HS 05/06/16 06/24/16 History Furosemide [Lasix] 80 mg PO BID 05/06/16 06/24/16 History Insulin Aspart [NovoLOG] See Protocol SQ AC-TID 05/06/16 06/24/16 History Metoprolol Tartrate [Lopressor] 25 mg PO DIRECTED 05/06/16 06/24/16 History Midodrine [ProAmatine] 5 mg PO MOWEFR 05/06/16 06/24/16 History Slow-Mag 71.5mg 71.5 mg PO QAM 05/06/16 06/24/16 History Slow-Mag 71.5mg 143 mg PO HS 05/06/16 06/24/16 History Sodium Bicarbonate Tab 650 mg PO BID 05/06/16 06/24/16 History Azithromycin [Zithromax Z-pack] See Taper PO DAILY 06/24/16 06/24/16 History Isosorbide Mononitrate ER [Imdur] 30 mg PO QAM 06/24/16 06/24/16 History Allergies Allergy/AdvReac Type Severity Reaction Status Date / Time adhesive Allergy Rash/Hives Verified 06/24/16 15:00 cephalexin monohydrate Allergy Rash/Hives Verified 06/24/16 15:00 [From Keflex] hydromorphone HCl Allergy Hallucinati Verified 06/24/16 15:00 [From Dilaudid] ons iodine Allergy Rash/Hives Verified 06/24/16 15:00 shellfish derived [Shrimp] Allergy Rash/Hives Verified 06/24/16 15:00 hydrocodone bitartrate AdvReac Itching Verified 06/24/16 15:00 [From Vicodin] morphine AdvReac Hallucinati Verified 06/24/16 15:00 ons tramadol AdvReac Itching Verified 06/24/16 15:00 artifical sweetener AdvReac Unknown Uncoded 06/24/16 15:00 Physical Exam Vitals: Vital Signs Temp Pulse Pulse Resp BP Pulse Ox 06/26/16 15:39 75 16 06/26/16 15:38 96.9 F L 75 16 178/91 96 06/26/16 11:04 78 18 06/26/16 11:01 97.1 F L 78 18 118/62 96 06/26/16 08:00 97.6 F 85 18 117/61 97 06/26/16 04:00 97.4 F L 83 16 105/62 93 L 06/25/16 23:33 97.5 F L 87 17 112/56 93 L 06/25/16 19:46 97.6 F 89 18 121/61 92 L Intake and Output 06/26/16 06/26/16 06/26/16 06:59 14:59 22:59 Intake Total 120 316 120 Balance 120 316 120 Intake: Oral 120 316 120 Other: Voiding Method Toilet Toilet Toilet # Voids 2 Weight 97.1 kg Physical Exam: Revealed a 61-year-old female in no distress presently undergoing hemodialysis. HEENT:[Neck is supple.] [No neck masses.] [No thyromegaly.] [No JVD.] Chest: [Clear throughout, no crackles, no rhonchi, no wheezes.] Cardiac Exam: [Normal S1 and S2, no S3 gallop, no murmur.] Abdomen: [Soft, nontender, no megaly, no rebound, no guarding, normal bowel sounds.] Extremities: [No clubbing, no edema, no cyanosis.] Neurological Exam: [No focal neurologic deficit.] Results - Laboratory Findings CBC and BMP: 06/26/16 05:41 06/26/16 05:41 Abnormal lab findings: Abnormal Labs 06/24/16 06/24/16 06/25/16 19:01 21:04 05:53 RBC 3.57 L Hgb 10.7 L Hct MCV 101.5 H MCHC 29.5 L RDW 19.8 H Neutrophils # 9.0 H Lymphocytes # 0.6 L Potassium BUN Creatinine Glucose POC Glucose (mg/dL) 173 H 346 H Calcium 06/25/16 06/25/16 06/25/16 05:53 05:59 08:49 RBC Hgb Hct MCV MCHC RDW Neutrophils # Lymphocytes # Potassium 7.5 H* 5.6 H BUN 57 H Creatinine 9.91 H* Glucose 308 H POC Glucose (mg/dL) 300 H Calcium 7.4 L 06/25/16 06/25/16 06/25/16 11:43 16:55 20:54 RBC Hgb Hct MCV MCHC RDW Neutrophils # Lymphocytes # Potassium BUN Creatinine Glucose POC Glucose (mg/dL) 176 H 308 H 307 H Calcium 06/26/16 06/26/16 06/26/16 05:41 05:41 06:26 RBC 3.14 L Hgb 9.2 L D Hct 31.6 L MCV 100.4 H MCHC 29.2 L RDW 19.9 H Neutrophils # Lymphocytes # Potassium BUN 49 H Creatinine 7.66 H* Glucose 180 H POC Glucose (mg/dL) 160 H Calcium 7.1 L 06/26/16 06/26/16 11:46 17:28 RBC Hgb Hct MCV MCHC RDW Neutrophils # Lymphocytes # Potassium BUN Creatinine Glucose POC Glucose (mg/dL) 123 H 104 H Calcium - Diagnostic Findings Chest x-ray: image reviewed (Suspect mild interstitial edema) Assessment and Plan Plan: Impression: Chronic cough most likely secondary to GERD, possibility of cough secondary to ALLERGIES specially mauled ALLERGY is not entirely ruled out. I believe there is also a component of interstitial edema based on the chest x- ray. Multiple comorbidities including chronic renal failure on hemodialysis, chronic anemia secondary to chronic disease, mixed hyperlipidemia, history of coronary artery disease and previous stent placement, and history of chronic GERD. I will recommend steroids, continue Protonix twice a day even when the patient is discharged, cough suppression, no need for antibiotics, follow-up chest x- ray in a.m. post dialysis. We'll continue to follow. Overall I fully agree with the present treatment plan as per the admitting physician. Time with Patient: Greater than 30
[2016-06-26] MEDS ORDERED: ALBUTEROL NEBULIZED 2.5 MG/3 ML INHALATION PRN (18:56)
[2016-06-26] MEDS: CINACALCET 30 MG TAB PO SCH (20:49)
[2016-06-26] MEDS: ATORVASTATIN 40 MG TAB PO SCH (20:49)
[2016-06-26] MEDS: SERTRALINE 50 MG TAB PO SCH (20:49)
[2016-06-26] MEDS: ASPIRIN 81 MG CHEW PO SCH (20:49)
[2016-06-26] MEDS: MONTELUKAST 10 MG TAB PO SCH (20:49)
[2016-06-26] MEDS: CLOPIDOGREL 75 MG TAB PO SCH (20:49)
[2016-06-26] MEDS: INSULIN GLARGINE 100 UNIT/ML 10 ML VIAL SQ SCH (20:50)
[2016-06-26] MEDS: methylPREDNISolone SOD SUCCI 40 MG/ML 1 ML VIAL IV SCH ×2 (20:50→23:37)
[2016-06-26 21:00] LABS: Hemoglobin A1C 7.1 % (4.2-6.1)
[2016-06-26 21:23] LABS: Glucose,Whole Blood 196 mg/dL (75-99)
--- NOTE | 2016-06-26 21:42 | PN ---
Patient is seen for follow-up for end-stage renal disease. She is currently comfortable, awake, not in any acute distress. Patient was admitted to the hospital with cough, weakness. She was also hyperkalemic over the weekend with a potassium of around 7.5. Patient was dialyzed yesterday and she is due for dialysis again today as she is maintained on a Sunday, Sunday, Sunday schedule. On examination, blood pressure is 178/91, heart rate 78 per minute. She is afebrile. Examination of the heart S1 and S2. Examination of the lungs: Bilateral breath sounds are heard. ABDOMEN: Soft, nontender. Examination of lower extremities shows no significant edema. F[employer] exam is grossly intact. Left arm AV fistula is noted. Labs show sodium 144, potassium 4.0, hemoglobin 9.2 grams per deciliter. ASSESSMENT: 1. End-stage renal disease on hemodialysis on a Sunday, Sunday, Sunday schedule. 2. Severe hyperkalemia over the weekend resolved post dialysis. 3. Chronic kidney bone mineral disorder. Phosphorus at 4.4. 4. Anemia of chronic disease. 5. Coronary artery disease with history of coronary stent placement. PLAN: Hemodialysis today.
[2016-06-27 06:05] LABS: Glucose,Whole Blood 374 mg/dL (75-99)
[2016-06-27] MEDS: INSULIN LISPRO (humaLOG) 300 UNIT/3 ML VIAL SQ SCH ×6 (06:59→17:10)
[2016-06-27] MEDS: CALCIUM ACETATE 667 MG CAP PO SCH ×3 (06:59→17:09)
[2016-06-27 07:25] LABS: Anisocytosis Slight; Basophils % (A) 0 %; CH 29.4; CHCM 29.9; Eosinophils % (A) 0 %; HCT 38.8 % (34.0-46.0); HDW 3.33; HGB 11.2 gm/dL (11.4-16.0); Hypochromasia Marked; Luc # (Auto) 0.03; Luc % (Auto) 0; Lymphocytes # (A) 0.7 k/uL (1.0-4.8); Lymphocytes % (A) 7 %; MCH 28.6 pg (25.0-35.0); MCV 98.5 fL (80.0-100.0); Macrocytosis Moderate; Mean Platelet Volume 8.4; Monocytes # (A) 0.2 k/uL (0-1.0); Monocytes % (A) 2 %; Neutrophils % (A) 90 %; RBC 3.93 m/uL (3.80-5.40); RDW 19.5 % (11.5-15.5); WBC (Perox) 9.51
[2016-06-27 07:45] LABS: Calcium 7.8 mg/dL (8.4-10.2); Magnesium 1.6 mg/dL (1.6-2.3)
--- NOTE | 2016-06-27 08:08 | XR ---
EXAMINATION TYPE: XR chest 1V portable DATE OF EXAM: 06/27/2016 7:34 AM CLINICAL HISTORY: Difficulty breathing progress study. TECHNIQUE: Single AP portable upright view of the chest is obtained. COMPARISON: Chest x-ray from 2 days earlier FINDINGS: Post-CABG changes with mediastinal clips and sternal wires is redemonstrated. There is per sistent cardiomegaly. There is chronic parenchymal change without suspicious focal airspace opacity, pleural effusion, or pneumothorax seen bilaterally. Osseous structures are intact. IMPRESSION: Cardiomegaly and chronic changes without acute pulmonary process on current study.
--- NOTE | 2016-06-27 08:48 | P.PN ---
Subjective Principal diagnosis: Severe cough Patient is a 61-year-old female with multiple medical problems, who was admitted to [facility] with severe cough, initially she was treated as outpatient for acute bronchitis, she received 2 courses of oral antibiotic, she improved however she had severe persistent cough, chest x-ray as outpatient did not reveal any evidence of pneumonia. Due to persistent continuous cough patient was admitted to the hospital, she was started on IV steroids and pulmonary consultation was requested. Patient is ALLERGIC to codeine. She is giving history of having mold in her house and possible ALLERGY to mold. Objective - Vital Signs Vital signs: Vital Signs Temp 97.6 F 06/27/16 04:00 Pulse 99 06/27/16 04:00 Resp 16 06/27/16 04:00 BP 123/67 06/27/16 04:00 Pulse Ox 99 06/27/16 04:00 Intake & Output 06/26/16 06/27/16 06/27/16 18:59 06:59 18:59 Intake Total 436 840 236 Output Total 3000 Balance 436 -2160 236 Weight 94 kg Intake: IV 40 solumedrol 40 Oral 436 800 236 Output: Urine 0 Other 3000 Other: Voiding Method Toilet Toilet # Voids 2 # Bowel Movements 1 - Exam In general patient is alert and oriented 3 in no apparent distress HEENT head normocephalic and atraumatic Neck is supple no JVD no goiter no lymphadenopathy Chest exam reveals a scattered crackles bilaterally no wheezing Cardiac exam reveals regular heart sounds no murmurs Abdomen is soft nontender no organomegaly Extremity exam reveals minimal edema - Labs CBC & Chem 7: 06/27/16 07:07 06/27/16 07:07 Labs: Abnormal Lab Results - Last 24 Hours (Table) 06/26/16 06/26/16 06/26/16 Range/Units 05:41 11:46 17:28 Hgb (11.4-16.0) gm/dL MCHC (31.0-37.0) g/dL RDW (11.5-15.5) % Neutrophils # (1.3-7.7) k/uL Lymphocytes # (1.0-4.8) k/uL Sodium (137-145) mmol/L Chloride (98-107) mmol/L Carbon Dioxide (22-30) mmol/L BUN (7-17) mg/dL Creatinine (0.52-1.04) mg/dL Glucose (74-99) mg/dL POC Glucose (mg/dL) 123 H 104 H (75-99) mg/dL Hemoglobin A1c 7.1 H (4.2-6.1) % Calcium (8.4-10.2) mg/dL Phosphorus (2.5-4.5) mg/dL 06/26/16 06/27/16 06/27/16 Range/Units 21:22 06:00 07:07 Hgb 11.2 L (11.4-16.0) gm/dL MCHC 29.0 L (31.0-37.0) g/dL RDW 19.5 H (11.5-15.5) % Neutrophils # 9.0 H (1.3-7.7) k/uL Lymphocytes # 0.7 L (1.0-4.8) k/uL Sodium (137-145) mmol/L Chloride (98-107) mmol/L Carbon Dioxide (22-30) mmol/L BUN (7-17) mg/dL Creatinine (0.52-1.04) mg/dL Glucose (74-99) mg/dL POC Glucose (mg/dL) 196 H 374 H (75-99) mg/dL Hemoglobin A1c (4.2-6.1) % Calcium (8.4-10.2) mg/dL Phosphorus (2.5-4.5) mg/dL 06/27/16 Range/Units 07:07 Hgb (11.4-16.0) gm/dL MCHC (31.0-37.0) g/dL RDW (11.5-15.5) % Neutrophils # (1.3-7.7) k/uL Lymphocytes # (1.0-4.8) k/uL Sodium 136 L (137-145) mmol/L Chloride 97 L (98-107) mmol/L Carbon Dioxide 20 L (22-30) mmol/L BUN 34 H (7-17) mg/dL Creatinine 5.94 H* (0.52-1.04) mg/dL Glucose 395 H (74-99) mg/dL POC Glucose (mg/dL) (75-99) mg/dL Hemoglobin A1c (4.2-6.1) % Calcium 7.8 L (8.4-10.2) mg/dL Phosphorus 5.0 H (2.5-4.5) mg/dL Assessment and Plan Plan: #1 severe persistent cough patient was started on IV steroids she has improved somewhat since yesterday, pulmonary consultation reviewed no need for antibiotic at this time. #2 gastroesophageal reflux disease maintained on Protonix #3 end-stage renal disease on hemodialysis #4 known history of insulin-dependent diabetes mellitus, now having hyperglycemia due to steroid use we are covering with insulin sliding scale #5 underlying history of coronary artery disease Will continue was current management continue to monitor glucose level and adjust insulin.
[2016-06-27] MEDS: methylPREDNISolone SOD SUCCI 40 MG/ML 1 ML VIAL IV SCH ×2 (08:49→15:40)
[2016-06-27] MEDS: SODIUM BICARBONATE TAB 650 MG TAB PO SCH ×2 (08:50→20:27)
[2016-06-27] MEDS: HEPARIN SODIUM,PORCINE 5,000 UNIT/ML 1 ML VIAL SQ SCH ×2 (08:50→20:27)
[2016-06-27] MEDS: GABAPENTIN 100 MG CAP PO SCH ×2 (08:50→20:26)
[2016-06-27] MEDS: ALLOPURINOL 100 MG TAB PO SCH (08:51)
[2016-06-27] MEDS: METOPROLOL TARTRATE 25 MG TAB PO SCH ×2 (08:51→20:27)
[2016-06-27] MEDS: PANTOPRAZOLE 40 MG TABLET PO SCH ×2 (08:51→20:27)
[2016-06-27] MEDS: FUROSEMIDE 80 MG TAB PO SCH ×2 (08:51→20:26)
[2016-06-27] MEDS: ISOSORBIDE MONONITRATE ER 30 MG TAB.ER.24H PO SCH (08:52)
[2016-06-27] MEDS: guaiFENesin-DM 100-10MG/5ML 10 ML CUP PO PRN ×2 (11:09→17:13)
[2016-06-27 11:17] LABS: Glucose,Whole Blood 317 mg/dL (75-99)
--- NOTE | 2016-06-27 13:38 | P.PN ---
Subjective This is a pleasant 61-year-old female with history of multiple medical problems including coronary artery disease, chronic renal failure on dialysis/ hemodialysis, history of previous [place], obstructive sleep apnea syndrome on BiPAP at home, history of hypothyroidism, diabetes, and hyperlipidemia. Patient is also known to have history of hypertension. She presented to the ER with complaints of chronic cough and not feeling well. Patient describes the cough sometimes is productive with whitish phlegm, but she denies any fever no chills no hemoptysis and no wheezing. Patient also describes symptoms of chronic GERD supposedly well controlled as long as she takes Protonix. Chest x-ray on presentation showed evidence of mild interstitial edema. No clear-cut evidence of pneumonia, and the patient did not have any leukocytosis, considering her cough symptoms. She is seen again today 06/27/2016 on the selective care unit. She is awake and alert in no acute distress. She is maintaining good O2 saturations in the high 90s on room air. She is currently afebrile. No leukocytosis. She is currently in a negative balance. She remains on Lasix 80 mg twice a day. Her creatinine is improving currently at 5.94. Potassium corrected to 5.0. Objective - Vital Signs Vital signs: Vital Signs Temp 96.8 F L 06/27/16 11:38 Pulse 74 06/27/16 11:39 Resp 20 06/27/16 11:39 BP 124/76 06/27/16 11:38 Pulse Ox 97 06/27/16 11:38 Intake & Output 06/26/16 06/27/16 06/27/16 18:59 06:59 18:59 Intake Total 436 840 354 Output Total 3000 Balance 436 -2160 354 Weight 94 kg Intake: IV 40 solumedrol 40 Oral 436 800 354 Output: Urine 0 Other 3000 Other: Voiding Method Toilet Toilet Toilet # Voids 2 # Bowel Movements 1 - Exam GENERAL EXAM: Alert, active, comfortable in no apparent distress. HEAD: Normocephalic. EYES: Normal reaction of pupils, equal size. NOSE: Clear with pink turbinates. THROAT: No erythema or exudates. NECK: No masses, no JVD. CHEST: No chest wall deformity. LUNGS: Equal air entry with no crackles, wheeze, rhonchi or dullness. CVS: S1 and S2 normal with no audible murmur, regular rhythm. ABDOMEN: No hepatosplenomegaly, normal bowel sounds, no guarding or rigidity. Extremities: There is trace peripheral edema. No clubbing, no cyanosis. Peripheral pulses are intact. - Labs CBC & Chem 7: 06/27/16 07:07 06/27/16 07:07 Labs: Abnormal Lab Results - Last 24 Hours (Table) 06/26/16 06/26/16 06/26/16 Range/Units 05:41 17:28 21:22 Hgb (11.4-16.0) gm/dL MCHC (31.0-37.0) g/dL RDW (11.5-15.5) % Neutrophils # (1.3-7.7) k/uL Lymphocytes # (1.0-4.8) k/uL Sodium (137-145) mmol/L Chloride (98-107) mmol/L Carbon Dioxide (22-30) mmol/L BUN (7-17) mg/dL Creatinine (0.52-1.04) mg/dL Glucose (74-99) mg/dL POC Glucose (mg/dL) 104 H 196 H (75-99) mg/dL Hemoglobin A1c 7.1 H (4.2-6.1) % Calcium (8.4-10.2) mg/dL Phosphorus (2.5-4.5) mg/dL 06/27/16 06/27/16 06/27/16 Range/Units 06:00 07:07 07:07 Hgb 11.2 L (11.4-16.0) gm/dL MCHC 29.0 L (31.0-37.0) g/dL RDW 19.5 H (11.5-15.5) % Neutrophils # 9.0 H (1.3-7.7) k/uL Lymphocytes # 0.7 L (1.0-4.8) k/uL Sodium 136 L (137-145) mmol/L Chloride 97 L (98-107) mmol/L Carbon Dioxide 20 L (22-30) mmol/L BUN 34 H (7-17) mg/dL Creatinine 5.94 H* (0.52-1.04) mg/dL Glucose 395 H (74-99) mg/dL POC Glucose (mg/dL) 374 H (75-99) mg/dL Hemoglobin A1c (4.2-6.1) % Calcium 7.8 L (8.4-10.2) mg/dL Phosphorus 5.0 H (2.5-4.5) mg/dL 06/27/16 Range/Units 11:15 Hgb (11.4-16.0) gm/dL MCHC (31.0-37.0) g/dL RDW (11.5-15.5) % Neutrophils # (1.3-7.7) k/uL Lymphocytes # (1.0-4.8) k/uL Sodium (137-145) mmol/L Chloride (98-107) mmol/L Carbon Dioxide (22-30) mmol/L BUN (7-17) mg/dL Creatinine (0.52-1.04) mg/dL Glucose (74-99) mg/dL POC Glucose (mg/dL) 317 H (75-99) mg/dL Hemoglobin A1c (4.2-6.1) % Calcium (8.4-10.2) mg/dL Phosphorus (2.5-4.5) mg/dL Assessment and Plan Plan: Impression: #1 Acute on chronic cough secondary to gastroesophageal reflux disease and possibly secondary to mold ALLERGY. There may be some evidence of some mild interstitial edema based on the chest x-ray as well. #2 Chronic renal failure, receiving hemodialysis. #3 Chronic anemia secondary to chronic renal disease. #4 Hyperlipidemia. #5 History of coronary artery disease with previous stent placement. #6 Chronic gastroesophageal reflux disease. Plan: The patient was seen and evaluated by Dr. Angulo. She is stable from the pulmonary standpoint. We'll continue with her bronchodilators as needed, IV Solu-Medrol and Singulair. Dialysis per nephrology. We'll increase her activity as tolerated. We'll continue to follow make further recommendations based on her clinical status.
[2016-06-27 16:35] LABS: Glucose,Whole Blood 343 mg/dL (75-99)
--- NOTE | 2016-06-27 20:07 | PN ---
Patient is seen for follow-up for end-stage renal disease. She is currently sitting up in bed, comfortable, not in any acute distress. The patient was evaluated by pulmonary. She is maintained on IV steroids. Currently, her blood sugars have been running on the high side. On examination, blood pressure is 125/69, heart rate 73 per minute. She is afebrile. Examination of the heart S1 and S2. Examination of the lungs: Bilateral breath sounds are heard. ABDOMEN: Soft, nontender obese. Examination of lower extremities shows no evidence of edema. [employer]PER [employer] exam is grossly intact. Labs show sodium 136, potassium 5.0, BUN 34, serum creatinine 5.9. Hemoglobin 11.2 g/dL. ASSESSMENT: 1. End-stage renal disease on hemodialysis on a Sunday, Sunday, Sunday schedule. The patient will be dialyzed tomorrow. She has a left arm AV fistula. 2. Severe hyperkalemia, currently resolved. 3. Chronic cough, possibly related to mold allergy versus gastroesophageal reflux disease being evaluated by pulmonary and is maintained on IV Solu-Medrol. 4. Chronic kidney disease bone mineral disorder. 5. Coronary artery disease with coronary stent placements previously and coronary artery bypass surgery. PLAN: Hemodialysis in a.m.
[2016-06-27] MEDS: ASPIRIN 81 MG CHEW PO SCH (20:26)
[2016-06-27] MEDS: ATORVASTATIN 40 MG TAB PO SCH (20:26)
[2016-06-27] MEDS: CLOPIDOGREL 75 MG TAB PO SCH (20:26)
[2016-06-27] MEDS: CINACALCET 30 MG TAB PO SCH (20:26)
[2016-06-27] MEDS: SERTRALINE 50 MG TAB PO SCH (20:27)
[2016-06-27] MEDS: MONTELUKAST 10 MG TAB PO SCH (20:27)
[2016-06-27 20:49] LABS: Glucose,Whole Blood 439 mg/dL (75-99)
[2016-06-27] MEDS ORDERED: INSULIN REGULAR BOLUS (FROM DRIP BAG) IV ONE (21:09)
[2016-06-27] MEDS: INSULIN REGULAR 100 UNIT in SODIUM CHLORIDE 0.9% 100 ML IV SCH (22:12)
[2016-06-27 22:24] LABS: Glucose,Whole Blood 379 mg/dL (75-99)
[2016-06-27 22:55] LABS: Glucose,Whole Blood 324 mg/dL (75-99)
[2016-06-27 23:25] LABS: Glucose,Whole Blood 244 mg/dL (75-99)
[2016-06-28] MEDS: methylPREDNISolone SOD SUCCI 40 MG/ML 1 ML VIAL IV SCH ×2 (00:33→08:36)
[2016-06-28 01:35] LABS: Glucose,Whole Blood 219 mg/dL (75-99)
[2016-06-28 03:30] LABS: Glucose,Whole Blood 181 mg/dL (75-99)
[2016-06-28 05:36] LABS: Glucose,Whole Blood 216 mg/dL (75-99)
[2016-06-28 06:38] LABS: Anisocytosis Slight; Basophils % (A) 0 %; CHCM 32.4; Eosinophils # (A) 0.1 k/uL (0-0.7); Eosinophils % (A) 0 %; HCT 34.9 % (34.0-46.0); HGB 10.8 gm/dL (11.4-16.0); Hypochromasia Slight; Luc # (Auto) 0.06; Luc % (Auto) 0; Lymphocytes # (A) 0.8 k/uL (1.0-4.8); Lymphocytes % (A) 6 %; MCH 28.7 pg (25.0-35.0); MCHC 30.9 g/dL (31.0-37.0); Macrocytosis Slight; Mean Platelet Volume 8.8; Monocytes # (A) 0.3 k/uL (0-1.0); Monocytes % (A) 2 %; Neutrophils # (A) 12.4 k/uL (1.3-7.7); Neutrophils % (A) 91 %; Poikilocytosis Slight; RBC 3.76 m/uL (3.80-5.40); RDW 19.7 % (11.5-15.5); WBC 13.6 k/uL (3.8-10.6); WBC (Perox) 12.38
[2016-06-28 06:40] LABS: MCV 92.9 fL (80.0-100.0)
[2016-06-28 07:09] LABS: Calcium 7.8 mg/dL (8.4-10.2); Magnesium 1.8 mg/dL (1.6-2.3); Phosphorous 4.4 mg/dL (2.5-4.5)
[2016-06-28] MEDS: INSULIN LISPRO (humaLOG) 300 UNIT/3 ML VIAL SQ SCH ×4 (07:17→17:00)
[2016-06-28] MEDS: CALCIUM ACETATE 667 MG CAP PO SCH ×3 (07:17→17:00)
[2016-06-28 07:30] LABS: Glucose,Whole Blood 226 mg/dL (75-99)
[2016-06-28] MEDS: INSULIN GLARGINE 100 UNIT/ML 10 ML VIAL SQ SCH (08:28)
--- NOTE | 2016-06-28 09:19 | P.PN ---
Subjective Principal diagnosis: Severe cough Patient is a 61-year-old female with multiple medical problems, who was admitted to [facility] with severe cough, initially she was treated as outpatient for acute bronchitis, she received 2 courses of oral antibiotic, she improved however she had severe persistent cough, chest x-ray as outpatient did not reveal any evidence of pneumonia. Due to persistent continuous cough patient was admitted to the hospital, she was started on IV steroids and pulmonary consultation was requested. Patient is ALLERGIC to codeine. She is giving history of having mold in her house and possible ALLERGY to mold. Objective - Vital Signs Vital signs: Vital Signs Temp 97.8 F 06/28/16 08:00 Pulse 72 06/28/16 08:41 Resp 16 06/28/16 08:41 BP 102/51 06/28/16 08:00 Pulse Ox 97 06/28/16 08:00 Intake & Output 06/27/16 06/28/16 06/28/16 18:59 06:59 18:59 Intake Total 654 48.884 Balance 654 48.884 Weight 95.5 kg Intake: Intake, IV Titration 48.884 Amount Insulin Regular 100 unit 48.884 In Sodium Chloride 0.9% 100 ml @ Titrate IV .Q0M [facility] Rx#:[id number] Oral 654 Other: Voiding Method Toilet Toilet Toilet # Voids 0 - Exam In general patient is alert and oriented 3 in no apparent distress HEENT head normocephalic and atraumatic Neck is supple no JVD no goiter no lymphadenopathy Chest exam reveals a scattered crackles bilaterally no wheezing Cardiac exam reveals regular heart sounds no murmurs Abdomen is soft nontender no organomegaly Extremity exam reveals minimal edema - Labs CBC & Chem 7: 06/28/16 06:17 06/28/16 06:17 Labs: Abnormal Lab Results - Last 24 Hours (Table) 06/27/16 06/27/16 06/27/16 Range/Units 11:15 16:29 20:44 WBC (3.8-10.6) k/uL RBC (3.80-5.40) m/uL Hgb (11.4-16.0) gm/dL MCHC (31.0-37.0) g/dL RDW (11.5-15.5) % Neutrophils # (1.3-7.7) k/uL Lymphocytes # (1.0-4.8) k/uL Carbon Dioxide (22-30) mmol/L BUN (7-17) mg/dL Creatinine (0.52-1.04) mg/dL Glucose (74-99) mg/dL POC Glucose (mg/dL) 317 H 343 H 439 H (75-99) mg/dL Calcium (8.4-10.2) mg/dL 06/27/16 06/27/16 06/27/16 Range/Units 22:11 22:54 23:23 WBC (3.8-10.6) k/uL RBC (3.80-5.40) m/uL Hgb (11.4-16.0) gm/dL MCHC (31.0-37.0) g/dL RDW (11.5-15.5) % Neutrophils # (1.3-7.7) k/uL Lymphocytes # (1.0-4.8) k/uL Carbon Dioxide (22-30) mmol/L BUN (7-17) mg/dL Creatinine (0.52-1.04) mg/dL Glucose (74-99) mg/dL POC Glucose (mg/dL) 379 H 324 H 244 H (75-99) mg/dL Calcium (8.4-10.2) mg/dL 06/28/16 06/28/16 06/28/16 Range/Units 01:34 03:18 05:25 WBC (3.8-10.6) k/uL RBC (3.80-5.40) m/uL Hgb (11.4-16.0) gm/dL MCHC (31.0-37.0) g/dL RDW (11.5-15.5) % Neutrophils # (1.3-7.7) k/uL Lymphocytes # (1.0-4.8) k/uL Carbon Dioxide (22-30) mmol/L BUN (7-17) mg/dL Creatinine (0.52-1.04) mg/dL Glucose (74-99) mg/dL POC Glucose (mg/dL) 219 H 181 H 216 H (75-99) mg/dL Calcium (8.4-10.2) mg/dL 06/28/16 06/28/16 06/28/16 Range/Units 06:17 06:17 07:17 WBC 13.6 H (3.8-10.6) k/uL RBC 3.76 L (3.80-5.40) m/uL Hgb 10.8 L (11.4-16.0) gm/dL MCHC 30.9 L (31.0-37.0) g/dL RDW 19.7 H (11.5-15.5) % Neutrophils # 12.4 H (1.3-7.7) k/uL Lymphocytes # 0.8 L (1.0-4.8) k/uL Carbon Dioxide 20 L (22-30) mmol/L BUN 64 H (7-17) mg/dL Creatinine 7.60 H* (0.52-1.04) mg/dL Glucose 234 H (74-99) mg/dL POC Glucose (mg/dL) 226 H (75-99) mg/dL Calcium 7.8 L (8.4-10.2) mg/dL Assessment and Plan Plan: #1 severe persistent cough patient was started on IV steroids she has improved somewhat since yesterday, pulmonary consultation reviewed no need for antibiotic at this time. #2 gastroesophageal reflux disease maintained on Protonix #3 end-stage renal disease on hemodialysis #4 known history of insulin-dependent diabetes mellitus, now having hyperglycemia due to steroid use we are covering with insulin sliding scale, last night patient required insulin drip due to severe hyperglycemia #5 underlying history of coronary artery disease Will continue was current management continue to monitor glucose level and adjust insulin.
[2016-06-28] MEDS: ALLOPURINOL 100 MG TAB PO SCH (09:23)
[2016-06-28] MEDS: GABAPENTIN 100 MG CAP PO SCH ×2 (09:23→23:01)
[2016-06-28] MEDS: HEPARIN SODIUM,PORCINE 5,000 UNIT/ML 1 ML VIAL SQ SCH ×2 (09:23→23:01)
[2016-06-28] MEDS: FUROSEMIDE 80 MG TAB PO SCH ×2 (09:23→23:01)
[2016-06-28] MEDS: PANTOPRAZOLE 40 MG TABLET PO SCH ×2 (09:24→23:02)
[2016-06-28] MEDS: MIDODRINE 5 MG TAB PO SCH (09:24)
[2016-06-28] MEDS: SODIUM BICARBONATE TAB 650 MG TAB PO SCH ×2 (09:24→23:03)
[2016-06-28 09:32] LABS: Glucose,Whole Blood 273 mg/dL (75-99)
[2016-06-28 11:26] LABS: Glucose,Whole Blood 257 mg/dL (75-99)
[2016-06-28] MEDS: ISOSORBIDE MONONITRATE ER 30 MG TAB.ER.24H PO SCH (11:45)
[2016-06-28] MEDS: predniSONE 10 MG TAB PO SCH ×2 (11:45→23:02)
[2016-06-28] MEDS: METOPROLOL TARTRATE 25 MG TAB PO SCH ×2 (11:45→23:02)
--- NOTE | 2016-06-28 13:08 | P.PN ---
Subjective Principal diagnosis: Chronic cough, multifactorial This is a pleasant 61-year-old female with history of multiple medical problems including coronary artery disease, chronic renal failure on dialysis/ hemodialysis, history of previous [place], obstructive sleep apnea syndrome on BiPAP at home, history of hypothyroidism, diabetes, and hyperlipidemia. Patient is also known to have history of hypertension. She presented to the ER with complaints of chronic cough and not feeling well. Patient describes the cough sometimes is productive with whitish phlegm, but she denies any fever no chills no hemoptysis and no wheezing. Patient also describes symptoms of chronic GERD supposedly well controlled as long as she takes Protonix. Chest x-ray on presentation showed evidence of mild interstitial edema. No clear-cut evidence of pneumonia, and the patient did not have any leukocytosis, considering her cough symptoms. She is seen again today 06/27/2016 on the selective care unit. She is awake and alert in no acute distress. She is maintaining good O2 saturations in the high 90s on room air. She is currently afebrile. No leukocytosis. She is currently in a negative balance. She remains on Lasix 80 mg twice a day. Her creatinine is improving currently at 5.94. Potassium corrected to 5.0. Patient was reevaluated today on 06/28/2016, she is doing better, however her sugars are running high because of the Solu-Medrol, and now she is on insulin drip. Continues to have a bit of a cough which is chronic and again is multifactorial possibly related to her ALLERGIES, she may have some component of bronchial asthma and she also has symptoms of GERD. On presentation the patient had some interstitial edema which has improved after dialysis. Today the patient is on insulin drip for her hyperglycemia, otherwise she is doing well, no shortness of breath. Cough is mostly dry hacking cough. And again it is chronic in nature. Objective - Vital Signs Vital signs: Vital Signs Temp 97.8 F 06/28/16 11:25 Pulse 66 06/28/16 11:38 Resp 16 06/28/16 11:25 BP 113/66 06/28/16 11:25 Pulse Ox 97 06/28/16 11:25 Intake & Output 06/27/16 06/28/16 06/28/16 18:59 06:59 18:59 Intake Total 654 48.884 134.6 Balance 654 48.884 134.6 Weight 95.5 kg Intake: Intake, IV Titration 48.884 16.6 Amount Insulin Regular 100 unit 48.884 16.6 In Sodium Chloride 0.9% 100 ml @ Titrate IV .Q0M [facility] Rx#:[id number] Oral 654 118 Other: Voiding Method Toilet Toilet Toilet # Voids 0 - Exam GENERAL EXAM: Alert, active, comfortable in no apparent distress. HEAD: Normocephalic. EYES: Normal reaction of pupils, equal size. NOSE: Clear with pink turbinates. THROAT: No erythema or exudates. NECK: No masses, no JVD. CHEST: No chest wall deformity. LUNGS: Equal air entry with no crackles, wheeze, rhonchi or dullness. CVS: S1 and S2 normal with no audible murmur, regular rhythm. ABDOMEN: No hepatosplenomegaly, normal bowel sounds, no guarding or rigidity. Extremities: There is trace peripheral edema. No clubbing, no cyanosis. Peripheral pulses are intact. - Labs CBC & Chem 7: 06/28/16 06:17 06/28/16 06:17 Labs: Abnormal Lab Results - Last 24 Hours (Table) 06/27/16 06/27/16 06/27/16 Range/Units 16:29 20:44 22:11 WBC (3.8-10.6) k/uL RBC (3.80-5.40) m/uL Hgb (11.4-16.0) gm/dL MCHC (31.0-37.0) g/dL RDW (11.5-15.5) % Neutrophils # (1.3-7.7) k/uL Lymphocytes # (1.0-4.8) k/uL Carbon Dioxide (22-30) mmol/L BUN (7-17) mg/dL Creatinine (0.52-1.04) mg/dL Glucose (74-99) mg/dL POC Glucose (mg/dL) 343 H 439 H 379 H (75-99) mg/dL Calcium (8.4-10.2) mg/dL 06/27/16 06/27/16 06/28/16 Range/Units 22:54 23:23 01:34 WBC (3.8-10.6) k/uL RBC (3.80-5.40) m/uL Hgb (11.4-16.0) gm/dL MCHC (31.0-37.0) g/dL RDW (11.5-15.5) % Neutrophils # (1.3-7.7) k/uL Lymphocytes # (1.0-4.8) k/uL Carbon Dioxide (22-30) mmol/L BUN (7-17) mg/dL Creatinine (0.52-1.04) mg/dL Glucose (74-99) mg/dL POC Glucose (mg/dL) 324 H 244 H 219 H (75-99) mg/dL Calcium (8.4-10.2) mg/dL 06/28/16 06/28/16 06/28/16 Range/Units 03:18 05:25 06:17 WBC 13.6 H (3.8-10.6) k/uL RBC 3.76 L (3.80-5.40) m/uL Hgb 10.8 L (11.4-16.0) gm/dL MCHC 30.9 L (31.0-37.0) g/dL RDW 19.7 H (11.5-15.5) % Neutrophils # 12.4 H (1.3-7.7) k/uL Lymphocytes # 0.8 L (1.0-4.8) k/uL Carbon Dioxide (22-30) mmol/L BUN (7-17) mg/dL Creatinine (0.52-1.04) mg/dL Glucose (74-99) mg/dL POC Glucose (mg/dL) 181 H 216 H (75-99) mg/dL Calcium (8.4-10.2) mg/dL 06/28/16 06/28/16 06/28/16 Range/Units 06:17 07:17 09:19 WBC (3.8-10.6) k/uL RBC (3.80-5.40) m/uL Hgb (11.4-16.0) gm/dL MCHC (31.0-37.0) g/dL RDW (11.5-15.5) % Neutrophils # (1.3-7.7) k/uL Lymphocytes # (1.0-4.8) k/uL Carbon Dioxide 20 L (22-30) mmol/L BUN 64 H (7-17) mg/dL Creatinine 7.60 H* (0.52-1.04) mg/dL Glucose 234 H (74-99) mg/dL POC Glucose (mg/dL) 226 H 273 H (75-99) mg/dL Calcium 7.8 L (8.4-10.2) mg/dL 06/28/16 Range/Units 11:21 WBC (3.8-10.6) k/uL RBC (3.80-5.40) m/uL Hgb (11.4-16.0) gm/dL MCHC (31.0-37.0) g/dL RDW (11.5-15.5) % Neutrophils # (1.3-7.7) k/uL Lymphocytes # (1.0-4.8) k/uL Carbon Dioxide (22-30) mmol/L BUN (7-17) mg/dL Creatinine (0.52-1.04) mg/dL Glucose (74-99) mg/dL POC Glucose (mg/dL) 257 H (75-99) mg/dL Calcium (8.4-10.2) mg/dL Assessment and Plan Plan: #1 Acute on chronic cough secondary to gastroesophageal reflux disease and possibly secondary to mold ALLERGY. There may be some evidence of some mild interstitial edema based on the chest x-ray as well. #2 Chronic renal failure, receiving hemodialysis. #3 Chronic anemia secondary to chronic renal disease. #4 Hyperlipidemia. #5 History of coronary artery disease with previous stent placement. #6 Chronic gastroesophageal reflux disease. Recommendation: Continue present meds, I switched her Solu-Medrol to prednisone 10 mg twice a day, consider discharge planning in the next 24 hours, and follow- up with me on outpatient basis to evaluate her chronic cough. Time with Patient: Less than 30
[2016-06-28 13:24] LABS: Glucose,Whole Blood 225 mg/dL (75-99)
[2016-06-28 15:38] LABS: Glucose,Whole Blood 212 mg/dL (75-99)
--- NOTE | 2016-06-28 17:25 | PN ---
Patient is seen for followup for end-stage renal disease. She is scheduled for hemodialysis today. After that she will be most likely discharged home. On examination, blood pressure is 113/66, heart rate 66. She is afebrile. EXAMINATION OF THE HEART: S1 and S2. EXAMINATION OF THE LUNGS: Bilateral breath sounds are heard. ABDOMEN: Soft, nontender. Examination of lower extremities shows no evidence of edema. [employer] exam is grossly intact. Labs show potassium 5.0 mg from today. Hemoglobin 10.8 g/dL. ASSESSMENT: 1. End-stage renal disease, on hemodialysis on a Sunday, Sunday, Sunday schedule. Patient will be dialyzed today. 2. Chronic cough, possibly related to mold allergy versus gastroesophageal reflux disease, being followed by Pulmonary, currently maintained on steroids and during better. 3. Severe hyperkalemia initially, currently completely resolved. 4. Chronic kidney disease bone mineral disorder. Continue current binders. PLAN: Hemodialysis today with goal UF of about 2 L.
[2016-06-28 17:31] LABS: Glucose,Whole Blood 248 mg/dL (75-99)
[2016-06-28 19:44] LABS: Glucose,Whole Blood 311 mg/dL (75-99)
[2016-06-28] MEDS: INSULIN REGULAR 100 UNIT in SODIUM CHLORIDE 0.9% 100 ML IV SCH (19:50)
[2016-06-28 21:31] LABS: Glucose,Whole Blood 175 mg/dL (75-99)
[2016-06-28] MEDS: CLOPIDOGREL 75 MG TAB PO SCH (23:01)
[2016-06-28] MEDS: ASPIRIN 81 MG CHEW PO SCH (23:01)
[2016-06-28] MEDS: ATORVASTATIN 40 MG TAB PO SCH (23:01)
[2016-06-28] MEDS: CINACALCET 30 MG TAB PO SCH (23:01)
[2016-06-28] MEDS: SERTRALINE 50 MG TAB PO SCH (23:02)
[2016-06-28] MEDS: MONTELUKAST 10 MG TAB PO SCH (23:02)
[2016-06-28] MEDS: guaiFENesin-DM 100-10MG/5ML 10 ML CUP PO PRN (23:10)
[2016-06-28 23:41] LABS: Glucose,Whole Blood 245 mg/dL (75-99)
[2016-06-29 01:52] LABS: Glucose,Whole Blood 226 mg/dL (75-99)
[2016-06-29 03:54] LABS: Glucose,Whole Blood 196 mg/dL (75-99)
[2016-06-29 06:13] LABS: Glucose,Whole Blood 174 mg/dL (75-99)
[2016-06-29 06:45] LABS: Anisocytosis Slight; Basophils % (A) 0 %; CH 29.5; CHCM 31.7; Eosinophils # (A) 0.2 k/uL (0-0.7); Eosinophils % (A) 1 %; HCT 34.4 % (34.0-46.0); HDW 3.36; Hypochromasia Moderate; Luc % (Auto) 1; Lymphocytes # (A) 1.3 k/uL (1.0-4.8); Lymphocytes % (A) 7 %; MCH 29.6 pg (25.0-35.0); MCHC 31.9 g/dL (31.0-37.0); MCV 92.9 fL (80.0-100.0); Macrocytosis Slight; Mean Platelet Volume 7.8; Monocytes # (A) 0.5 k/uL (0-1.0); Monocytes % (A) 3 %; Neutrophils # (A) 15.2 k/uL (1.3-7.7); Neutrophils % (A) 88 %; RDW 19.4 % (11.5-15.5); WBC 17.1 k/uL (3.8-10.6); WBC (Perox) 18.66
[2016-06-29] MEDS: INSULIN LISPRO (humaLOG) 300 UNIT/3 ML VIAL SQ SCH ×3 (07:20→17:30)
[2016-06-29] MEDS: CALCIUM ACETATE 667 MG CAP PO SCH ×3 (07:20→17:30)
[2016-06-29] MEDS: HEPARIN SODIUM,PORCINE 5,000 UNIT/ML 1 ML VIAL SQ SCH ×2 (07:38→21:38)
[2016-06-29] MEDS: SODIUM BICARBONATE TAB 650 MG TAB PO SCH ×2 (07:38→21:37)
[2016-06-29] MEDS: ISOSORBIDE MONONITRATE ER 30 MG TAB.ER.24H PO SCH (07:38)
[2016-06-29] MEDS: predniSONE 10 MG TAB PO SCH ×2 (07:39→21:37)
[2016-06-29] MEDS: METOPROLOL TARTRATE 25 MG TAB PO SCH ×2 (07:39→21:37)
[2016-06-29] MEDS: ALLOPURINOL 100 MG TAB PO SCH (07:39)
[2016-06-29] MEDS: PANTOPRAZOLE 40 MG TABLET PO SCH ×2 (07:39→21:37)
[2016-06-29] MEDS: GABAPENTIN 100 MG CAP PO SCH ×2 (07:39→21:37)
[2016-06-29] MEDS: FUROSEMIDE 80 MG TAB PO SCH ×2 (07:40→21:36)
[2016-06-29] MEDS: guaiFENesin-DM 100-10MG/5ML 10 ML CUP PO PRN (08:40)
[2016-06-29 08:42] LABS: Glucose,Whole Blood 287 mg/dL (75-99)
[2016-06-29 10:20] LABS: Calcium 7.6 mg/dL (8.4-10.2); Magnesium 1.6 mg/dL (1.6-2.3); Phosphorous 4.9 mg/dL (2.5-4.5); Potassium 4.4 mmol/L (3.5-5.1)
[2016-06-29 10:21] LABS: Glucose,Whole Blood 202 mg/dL (75-99)
--- NOTE | 2016-06-29 10:33 | P.PN ---
Subjective Patient presented with cough that did not improve with antibiotics over the past month. Suspicion of mold ALLERGY versus GERD contributing to her cough. Patient has noted some improvement in cough during her admission. She denies any chest pain. Denies any nausea or vomiting. Denies any bowel movement changes or urinary symptoms. Patient is not eager for discharge yet because she is concerned of being on steroids that'll elevate her blood sugars. And also concerned that family is sick at home with the flu. Objective - Vital Signs Vital signs: Vital Signs Temp 97.1 F L 06/29/16 04:00 Pulse 66 06/29/16 07:45 Resp 17 06/29/16 07:45 BP 102/57 06/29/16 07:37 Pulse Ox 99 06/29/16 04:00 Intake & Output 06/28/16 06/29/16 06/29/16 18:59 06:59 18:59 Intake Total 828.116 219.275 130.292 Balance 828.116 219.275 130.292 Weight 94.9 kg Intake: IV 51 Insulin Regular 100 unit 50 In Sodium Chloride 0.9% 100 ml @ Titrate IV .Q0M [facility] Rx#:[id number] solumedrol 1 Intake, IV Titration 52.116 48.275 10.292 Amount Insulin Regular 100 unit 52.116 48.275 10.292 In Sodium Chloride 0.9% 100 ml @ Titrate IV .Q0M [facility] Rx#:[id number] Oral 776 120 120 Other: Voiding Method Toilet Toilet Toilet # Bowel Movements 1 - Exam Head normocephalic Neck supple Lungs clear to auscultation bilaterally no wheezing or crackles Heart regular rate and rhythm S1-S2, no rub or gallop Abdomen is soft nontender nondistended positive bowel sounds no hepatosplenomegaly Extremities no edema Neuro alert and orientated to 3 - Labs CBC & Chem 7: 06/29/16 06:23 06/28/16 06:17 Labs: Abnormal Lab Results - Last 24 Hours (Table) 06/28/16 06/28/16 06/28/16 Range/Units 11:21 13:11 15:27 WBC (3.8-10.6) k/uL RBC (3.80-5.40) m/uL Hgb (11.4-16.0) gm/dL RDW (11.5-15.5) % Neutrophils # (1.3-7.7) k/uL POC Glucose (mg/dL) 257 H 225 H 212 H (75-99) mg/dL 06/28/16 06/28/16 06/28/16 Range/Units 17:19 19:42 21:30 WBC (3.8-10.6) k/uL RBC (3.80-5.40) m/uL Hgb (11.4-16.0) gm/dL RDW (11.5-15.5) % Neutrophils # (1.3-7.7) k/uL POC Glucose (mg/dL) 248 H 311 H 175 H (75-99) mg/dL 06/28/16 06/29/16 06/29/16 Range/Units 23:40 01:50 03:52 WBC (3.8-10.6) k/uL RBC (3.80-5.40) m/uL Hgb (11.4-16.0) gm/dL RDW (11.5-15.5) % Neutrophils # (1.3-7.7) k/uL POC Glucose (mg/dL) 245 H 226 H 196 H (75-99) mg/dL 06/29/16 06/29/16 06/29/16 Range/Units 06:12 06:23 08:21 WBC 17.1 H (3.8-10.6) k/uL RBC 3.70 L (3.80-5.40) m/uL Hgb 11.0 L (11.4-16.0) gm/dL RDW 19.4 H (11.5-15.5) % Neutrophils # 15.2 H (1.3-7.7) k/uL POC Glucose (mg/dL) 174 H 287 H (75-99) mg/dL 06/29/16 Range/Units 10:01 WBC (3.8-10.6) k/uL RBC (3.80-5.40) m/uL Hgb (11.4-16.0) gm/dL RDW (11.5-15.5) % Neutrophils # (1.3-7.7) k/uL POC Glucose (mg/dL) 202 H (75-99) mg/dL Assessment and Plan Plan: 1. Acute on chronic cough secondary to GERD and possibly secondary to mold ALLERGY. Pulmonary following. They switch her over to oral prednisone. 2. End-stage renal disease on hemodialysis: Nephrology following. 3. Hyperkalemia: Treated medically and with hemodialysis. Hyperkalemia resolved 4. Type 2 diabetes mellitus, insulin-dependent. Patient had severe hyperglycemia secondary steroids requiring insulin drip. Now that she is on oral prednisone which should see some improvement in the blood sugar. However blood sugar this morning is still 200s. Continue to monitor. 5. Anemia of chronic disease secondary to chronic renal disease. Continue the Aranesp 6. Mixed hyperlipidemia 7. Coronary artery disease with prior stent placement: Continue medical management 8. Medical debility consult physical therapy Anticipate discharge possibly tomorrow
--- NOTE | 2016-06-29 11:24 | P.PN ---
Subjective Patient is seen in follow-up for end-stage renal disease. She is maintained on hemodialysis on a Sunday schedule via AV graft. Patient presented with a cough which is related to her ALLERGY to mold possibly. Continues to have the cough. No vomiting or diarrhea. Denies chest pain or shortness of breath. Vital signs are stable. General: The patient appeared well nourished and normally developed. HEENT: Head exam is unremarkable. Neck is without jugular venous distension. LUNGS: Lungs are clear to auscultation and percussion. Breath sounds decreased. HEART: Rate and Rhythm are regular. First and second heart sounds normal. No murmurs, rubs or gallops. ABDOMEN: Abdominal exam reveals normal bowel sounds. Non-tender and non- distended. No evidence of peritonitis. EXTREMITITES: No clubbing, cyanosis, or edema. Objective - Vital Signs Vital signs: Vital Signs Temp 97.1 F L 06/29/16 11:19 Pulse 58 L 06/29/16 11:19 Resp 17 06/29/16 11:19 BP 98/50 06/29/16 11:19 Pulse Ox 98 06/29/16 11:19 Intake & Output 06/28/16 06/29/16 06/29/16 18:59 06:59 18:59 Intake Total 828.116 219.275 130.292 Balance 828.116 219.275 130.292 Weight 94.9 kg Intake: IV 51 Insulin Regular 100 unit 50 In Sodium Chloride 0.9% 100 ml @ Titrate IV .Q0M [facility] Rx#:[id number] solumedrol 1 Intake, IV Titration 52.116 48.275 10.292 Amount Insulin Regular 100 unit 52.116 48.275 10.292 In Sodium Chloride 0.9% 100 ml @ Titrate IV .Q0M [facility] Rx#:[id number] Oral 776 120 120 Other: Voiding Method Toilet Toilet Toilet # Bowel Movements 1 - Labs CBC & Chem 7: 06/29/16 06:23 06/29/16 08:54 Labs: Abnormal Lab Results - Last 24 Hours (Table) 06/28/16 06/28/16 06/28/16 Range/Units 11:21 13:11 15:27 WBC (3.8-10.6) k/uL RBC (3.80-5.40) m/uL Hgb (11.4-16.0) gm/dL RDW (11.5-15.5) % Neutrophils # (1.3-7.7) k/uL Carbon Dioxide (22-30) mmol/L BUN (7-17) mg/dL Creatinine (0.52-1.04) mg/dL Glucose (74-99) mg/dL POC Glucose (mg/dL) 257 H 225 H 212 H (75-99) mg/dL Calcium (8.4-10.2) mg/dL Phosphorus (2.5-4.5) mg/dL 06/28/16 06/28/16 06/28/16 Range/Units 17:19 19:42 21:30 WBC (3.8-10.6) k/uL RBC (3.80-5.40) m/uL Hgb (11.4-16.0) gm/dL RDW (11.5-15.5) % Neutrophils # (1.3-7.7) k/uL Carbon Dioxide (22-30) mmol/L BUN (7-17) mg/dL Creatinine (0.52-1.04) mg/dL Glucose (74-99) mg/dL POC Glucose (mg/dL) 248 H 311 H 175 H (75-99) mg/dL Calcium (8.4-10.2) mg/dL Phosphorus (2.5-4.5) mg/dL 06/28/16 06/29/16 06/29/16 Range/Units 23:40 01:50 03:52 WBC (3.8-10.6) k/uL RBC (3.80-5.40) m/uL Hgb (11.4-16.0) gm/dL RDW (11.5-15.5) % Neutrophils # (1.3-7.7) k/uL Carbon Dioxide (22-30) mmol/L BUN (7-17) mg/dL Creatinine (0.52-1.04) mg/dL Glucose (74-99) mg/dL POC Glucose (mg/dL) 245 H 226 H 196 H (75-99) mg/dL Calcium (8.4-10.2) mg/dL Phosphorus (2.5-4.5) mg/dL 06/29/16 06/29/16 06/29/16 Range/Units 06:12 06:23 08:21 WBC 17.1 H (3.8-10.6) k/uL RBC 3.70 L (3.80-5.40) m/uL Hgb 11.0 L (11.4-16.0) gm/dL RDW 19.4 H (11.5-15.5) % Neutrophils # 15.2 H (1.3-7.7) k/uL Carbon Dioxide (22-30) mmol/L BUN (7-17) mg/dL Creatinine (0.52-1.04) mg/dL Glucose (74-99) mg/dL POC Glucose (mg/dL) 174 H 287 H (75-99) mg/dL Calcium (8.4-10.2) mg/dL Phosphorus (2.5-4.5) mg/dL 06/29/16 06/29/16 Range/Units 08:54 10:01 WBC (3.8-10.6) k/uL RBC (3.80-5.40) m/uL Hgb (11.4-16.0) gm/dL RDW (11.5-15.5) % Neutrophils # (1.3-7.7) k/uL Carbon Dioxide 20 L (22-30) mmol/L BUN 61 H (7-17) mg/dL Creatinine 6.39 H* (0.52-1.04) mg/dL Glucose 254 H (74-99) mg/dL POC Glucose (mg/dL) 202 H (75-99) mg/dL Calcium 7.6 L (8.4-10.2) mg/dL Phosphorus 4.9 H (2.5-4.5) mg/dL Assessment and Plan Plan: Assessment: #1. End-stage renal disease maintained on hemodialysis on a Sunday schedule via AV graft. #2. Chronic cough possibly related to mold ALLERGY. #3. Hyperkalemia secondary to chronic kidney disease. Resolved. #4. Chronic kidney disease mineral bone disease. Plan: Hemodialysis tomorrow with goal ultrafiltration about 2 L. Maintain PhosLo with meals. Maintain oral sodium bicarbonate. Pulmonary following. Stable to be discharged home from nephrology standpoint.
[2016-06-29 12:17] LABS: Glucose,Whole Blood 162 mg/dL (75-99)
--- NOTE | 2016-06-29 13:18 | P.PN ---
Subjective This is a pleasant 61-year-old female with history of multiple medical problems including coronary artery disease, chronic renal failure on dialysis/ hemodialysis, history of previous IN, obstructive sleep apnea syndrome on BiPAP at home, history of hypothyroidism, diabetes, and hyperlipidemia. Patient is also known to have history of hypertension. She presented to the ER with complaints of chronic cough and not feeling well. Patient describes the cough sometimes is productive with whitish phlegm, but she denies any fever no chills no hemoptysis and no wheezing. Patient also describes symptoms of chronic GERD supposedly well controlled as long as she takes Protonix. Chest x-ray on presentation showed evidence of mild interstitial edema. No clear-cut evidence of pneumonia, and the patient did not have any leukocytosis, considering her cough symptoms. She is seen again today 06/29/2016 on the selective care unit. She is awake and alert in no acute distress. She is maintaining good O2 saturations in the high 90s on room air. She is currently afebrile. Current white count 17.1. She remains on Lasix 80 mg twice a day. Her creatinine is currently at 6.39. Potassium corrected to 4.4. She has no current complaints. She receives hemodialysis on Sunday. Possibly home after dialysis tomorrow. Objective - Vital Signs Vital signs: Vital Signs Temp 97.1 F L 06/29/16 11:19 Pulse 58 L 06/29/16 11:19 Resp 17 06/29/16 11:19 BP 98/50 06/29/16 11:19 Pulse Ox 98 06/29/16 11:19 Intake & Output 06/28/16 06/29/16 06/29/16 18:59 06:59 18:59 Intake Total 828.116 219.275 136.892 Balance 828.116 219.275 136.892 Weight 94.9 kg Intake: IV 51 Insulin Regular 100 unit 50 In Sodium Chloride 0.9% 100 ml @ Titrate IV .Q0M MUKUND Rx#:[id number] solumedrol 1 Intake, IV Titration 52.116 48.275 16.892 Amount Insulin Regular 100 unit 52.116 48.275 16.892 In Sodium Chloride 0.9% 100 ml @ Titrate IV .Q0M MUKUND Rx#:[id number] Oral 776 120 120 Other: Voiding Method Toilet Toilet Toilet # Bowel Movements 1 - Exam GENERAL EXAM: Alert, active, comfortable in no apparent distress. HEAD: Normocephalic. EYES: Normal reaction of pupils, equal size. NOSE: Clear with pink turbinates. THROAT: No erythema or exudates. NECK: No masses, no JVD. CHEST: No chest wall deformity. LUNGS: Equal air entry with no crackles, wheeze, rhonchi or dullness. CVS: S1 and S2 normal with no audible murmur, regular rhythm. ABDOMEN: No hepatosplenomegaly, normal bowel sounds, no guarding or rigidity. Extremities: There is trace peripheral edema. No clubbing, no cyanosis. Peripheral pulses are intact. - Labs CBC & Chem 7: 06/29/16 06:23 06/29/16 08:54 Labs: Abnormal Lab Results - Last 24 Hours (Table) 06/28/16 06/28/16 06/28/16 Range/Units 13:11 15:27 17:19 WBC (3.8-10.6) k/uL RBC (3.80-5.40) m/uL Hgb (11.4-16.0) gm/dL RDW (11.5-15.5) % Neutrophils # (1.3-7.7) k/uL Carbon Dioxide (22-30) mmol/L BUN (7-17) mg/dL Creatinine (0.52-1.04) mg/dL Glucose (74-99) mg/dL POC Glucose (mg/dL) 225 H 212 H 248 H (75-99) mg/dL Calcium (8.4-10.2) mg/dL Phosphorus (2.5-4.5) mg/dL 06/28/16 06/28/16 06/28/16 Range/Units 19:42 21:30 23:40 WBC (3.8-10.6) k/uL RBC (3.80-5.40) m/uL Hgb (11.4-16.0) gm/dL RDW (11.5-15.5) % Neutrophils # (1.3-7.7) k/uL Carbon Dioxide (22-30) mmol/L BUN (7-17) mg/dL Creatinine (0.52-1.04) mg/dL Glucose (74-99) mg/dL POC Glucose (mg/dL) 311 H 175 H 245 H (75-99) mg/dL Calcium (8.4-10.2) mg/dL Phosphorus (2.5-4.5) mg/dL 06/29/16 06/29/16 06/29/16 Range/Units 01:50 03:52 06:12 WBC (3.8-10.6) k/uL RBC (3.80-5.40) m/uL Hgb (11.4-16.0) gm/dL RDW (11.5-15.5) % Neutrophils # (1.3-7.7) k/uL Carbon Dioxide (22-30) mmol/L BUN (7-17) mg/dL Creatinine (0.52-1.04) mg/dL Glucose (74-99) mg/dL POC Glucose (mg/dL) 226 H 196 H 174 H (75-99) mg/dL Calcium (8.4-10.2) mg/dL Phosphorus (2.5-4.5) mg/dL 06/29/16 06/29/16 06/29/16 Range/Units 06:23 08:21 08:54 WBC 17.1 H (3.8-10.6) k/uL RBC 3.70 L (3.80-5.40) m/uL Hgb 11.0 L (11.4-16.0) gm/dL RDW 19.4 H (11.5-15.5) % Neutrophils # 15.2 H (1.3-7.7) k/uL Carbon Dioxide 20 L (22-30) mmol/L BUN 61 H (7-17) mg/dL Creatinine 6.39 H* (0.52-1.04) mg/dL Glucose 254 H (74-99) mg/dL POC Glucose (mg/dL) 287 H (75-99) mg/dL Calcium 7.6 L (8.4-10.2) mg/dL Phosphorus 4.9 H (2.5-4.5) mg/dL 06/29/16 06/29/16 Range/Units 10:01 11:37 WBC (3.8-10.6) k/uL RBC (3.80-5.40) m/uL Hgb (11.4-16.0) gm/dL RDW (11.5-15.5) % Neutrophils # (1.3-7.7) k/uL Carbon Dioxide (22-30) mmol/L BUN (7-17) mg/dL Creatinine (0.52-1.04) mg/dL Glucose (74-99) mg/dL POC Glucose (mg/dL) 202 H 162 H (75-99) mg/dL Calcium (8.4-10.2) mg/dL Phosphorus (2.5-4.5) mg/dL Assessment and Plan Plan: Impression: #1 Acute on chronic cough secondary to gastroesophageal reflux disease and possibly secondary to mold ALLERGY. There may be some evidence of some mild interstitial edema based on the chest x-ray as well. #2 Chronic renal failure, receiving hemodialysis on Sunday. #3 Chronic anemia secondary to chronic renal disease. #4 Hyperlipidemia. #5 History of coronary artery disease with previous stent placement. #6 Chronic gastroesophageal reflux disease. Plan: The patient was seen and evaluated by Dr. Angulo. We'll continue with her bronchodilators as needed, prednisone taper and Singulair. Dialysis per nephrology. We'll increase her activity as tolerated. The plan is for possible discharge in the a.m. She is cleared from the pulmonary standpoint.
[2016-06-29 14:59] LABS: Glucose,Whole Blood 210 mg/dL (75-99)
[2016-06-29 16:43] LABS: Glucose,Whole Blood 170 mg/dL (75-99)
[2016-06-29] MEDS: MENTHOL (NICE) LOZENGE MUCOUS MEM PRN ×2 (17:30→21:37)
[2016-06-29 19:04] LABS: Glucose,Whole Blood 184 mg/dL (75-99)
[2016-06-29 21:06] LABS: Glucose,Whole Blood 170 mg/dL (75-99)
[2016-06-29] MEDS: INSULIN REGULAR 100 UNIT in SODIUM CHLORIDE 0.9% 100 ML IV SCH (21:35)
[2016-06-29] MEDS: CLOPIDOGREL 75 MG TAB PO SCH (21:37)
[2016-06-29] MEDS: ASPIRIN 81 MG CHEW PO SCH (21:37)
[2016-06-29] MEDS: ATORVASTATIN 40 MG TAB PO SCH (21:37)
[2016-06-29] MEDS: MONTELUKAST 10 MG TAB PO SCH (21:37)
[2016-06-29] MEDS: SERTRALINE 50 MG TAB PO SCH (21:37)
[2016-06-29] MEDS: CINACALCET 30 MG TAB PO SCH (21:37)
[2016-06-29 23:19] LABS: Glucose,Whole Blood 240 mg/dL (75-99)
[2016-06-30 01:15] LABS: Glucose,Whole Blood 239 mg/dL (75-99)
[2016-06-30 03:08] LABS: Glucose,Whole Blood 210 mg/dL (75-99)
[2016-06-30 05:25] LABS: Glucose,Whole Blood 218 mg/dL (75-99)
[2016-06-30 06:24] LABS: Anisocytosis Slight; Basophils % (A) 0 %; CH 29.4; Eosinophils # (A) 0.1 k/uL (0-0.7); Eosinophils % (A) 0 %; HCT 34.1 % (34.0-46.0); HDW 3.15; HGB 10.5 gm/dL (11.4-16.0); Hypochromasia Moderate; Luc # (Auto) 0.14; Luc % (Auto) 1; Lymphocytes # (A) 1.2 k/uL (1.0-4.8); Lymphocytes % (A) 8 %; MCH 29.2 pg (25.0-35.0); MCHC 30.7 g/dL (31.0-37.0); MCV 94.9 fL (80.0-100.0); Macrocytosis Slight; Mean Platelet Volume 8.2; Monocytes # (A) 0.7 k/uL (0-1.0); Monocytes % (A) 4 %; Neutrophils # (A) 13.6 k/uL (1.3-7.7); Neutrophils % (A) 87 %; RDW 19.6 % (11.5-15.5); WBC 15.7 k/uL (3.8-10.6); WBC (Perox) 16.46
[2016-06-30 06:54] LABS: Magnesium 1.6 mg/dL (1.6-2.3); Phosphorous 5.3 mg/dL (2.5-4.5); Potassium 5.2 mmol/L (3.5-5.1)
[2016-06-30] MEDS: CALCIUM ACETATE 667 MG CAP PO SCH ×3 (07:05→17:31)
[2016-06-30] MEDS: INSULIN LISPRO (humaLOG) 300 UNIT/3 ML VIAL SQ SCH ×6 (07:05→21:03)
[2016-06-30 07:26] LABS: Glucose,Whole Blood 194 mg/dL (75-99)
[2016-06-30 09:50] LABS: Glucose,Whole Blood 221 mg/dL (75-99)
[2016-06-30] MEDS: ALLOPURINOL 100 MG TAB PO SCH (09:55)
[2016-06-30] MEDS: HEPARIN SODIUM,PORCINE 5,000 UNIT/ML 1 ML VIAL SQ SCH ×2 (09:55→21:02)
[2016-06-30] MEDS: GABAPENTIN 100 MG CAP PO SCH ×2 (09:56→21:02)
[2016-06-30] MEDS: FUROSEMIDE 80 MG TAB PO SCH ×2 (09:56→21:02)
[2016-06-30] MEDS: ISOSORBIDE MONONITRATE ER 30 MG TAB.ER.24H PO SCH (09:57)
[2016-06-30] MEDS: MENTHOL (NICE) LOZENGE MUCOUS MEM PRN (09:58)
[2016-06-30] MEDS: PANTOPRAZOLE 40 MG TABLET PO SCH ×2 (09:58→21:02)
[2016-06-30] MEDS: METOPROLOL TARTRATE 25 MG TAB PO SCH ×2 (09:58→21:02)
[2016-06-30] MEDS: MIDODRINE 5 MG TAB PO SCH (09:58)
[2016-06-30] MEDS: SODIUM BICARBONATE TAB 650 MG TAB PO SCH ×2 (09:59→21:03)
[2016-06-30] MEDS: predniSONE 10 MG TAB PO SCH ×2 (09:59→21:03)
[2016-06-30 10:10] VITALS: RESP 18
[2016-06-30 11:56] LABS: Glucose,Whole Blood 212 mg/dL (75-99)
--- NOTE | 2016-06-30 12:50 | P.DS ---
Providers Date of admission: 06/24/16 17:47 Expected date of discharge: 06/30/16 Attending physician: Zehra Lang Consults: 06/26/16 11:06 Consult Physician Routine Consulting Provider: Radha Angulo Consult Reason/Comments: cough possible allergy to Mold Do you want consulting provider notified?: Yes Dr. Andrea Primary care physician: [facility] Hospital Course: Discharge diagnosis 1. Acute on chronic cough secondary to GERD and possibly secondary to mold ALLERGY. Pulmonary following. They switch her over to oral prednisone. 2. End-stage renal disease on hemodialysis: Nephrology following. 3. Hyperkalemia: Treated medically and with hemodialysis. Hyperkalemia resolved 4. Type 2 diabetes mellitus, insulin-dependent. Patient had severe hyperglycemia secondary steroids requiring insulin drip. Now that she is on oral prednisone which should see some improvement in the blood sugar. 5. Anemia of chronic disease secondary to chronic renal disease. Continue the Aranesp 6. Mixed hyperlipidemia 7. Coronary artery disease with prior stent placement: Continue medical management 8. Medical debility Hospital course This is a 7-year-old female who presented with cough that did not show improvement after being on antibiotics for about a month. There were concerns about mold ALLERGY. She was given IV steroids and then switched over to oral prednisone. She was seen evaluated by pulmonary service. They felt that there may also be a component of GERD contribute to her cough. She is on omeprazole 20 mg twice a day. Her symptoms have shown some improvement. There is some lingering cough. But pulmonary has cleared her for discharge. Patient will be staying with her daughter. Their concerns of mold in her house. Patient is trying to move. She's also complete a prednisone taper. We will decrease her steroids to 5 mg twice a day for one week and then she can stop taking steroids. Patient did have elevated blood sugars due to the steroids requiring her to be placed on insulin drip. Blood sugars have shown improvement with the decreasing of the steroids. We'll resume her home insulin medications. Patient is followed up with nephrology regarding her chronic kidney disease. She is scheduled again for hemodialysis today. And they have cleared for discharge after hemodialysis. Patient is medical stable for discharge. Please refer to chart for any further details. Patient Condition at Discharge: Stable Plan - Discharge Summary New Discharge Prescriptions: Montelukast [Singulair] 10 mg PO HS #30 tab predniSONE 5 mg PO BID #14 tab Discharge Medication List Allopurinol [Zyloprim] 100 mg PO DAILY@0900 11/15/14 [History] Gabapentin [Neurontin] 100 mg PO BID@0900,209911/15/14 [History] Nitroglycerin Sl Tabs [Nitrostat] 0.4 mg SUBLINGUAL Q5M PRN #25 tab 11/19/14 [Rx ] Omeprazole [PriLOSEC] 20 mg PO BID@0900,209901/31/15 [History] Epoetin Adam [Epogen] 4,000 unit IV MOWEFR 03/03/15 [History] Insulin Glargine [Lantus] 30 unit SQ HS 03/03/15 [History] Loperamide [Imodium] 2 mg PO QID PRN 03/03/15 [History] Mv-Min/Vit C/Glu/Karla HCl/Hc124 [Airborne Tablet Chewable] 1 tab PO QID PRN 03/03 [History] Sertraline [Zoloft] 50 mg PO HS 03/03/15 [History] Atorvastatin [Lipitor] 40 mg PO HS 04/23/15 [History] Clopidogrel [Plavix] 75 mg PO HS 04/23/15 [History] Aspirin [Adult Low Dose Aspirin EC] 81 mg PO HS 05/06/16 [History] Calcium Acetate [PhosLo] 667 mg PO AC-TID 05/06/16 [History] Cinacalcet HCl [Sensipar] 30 mg PO HS 05/06/16 [History] Furosemide [Lasix] 80 mg PO BID 05/06/16 [History] Insulin Aspart [NovoLOG] See Protocol SQ AC-TID 05/06/16 [History] Midodrine [ProAmatine] 5 mg PO MOWEFR 05/06/16 [History] Slow-Mag 71.5mg 71.5 mg PO QAM 05/06/16 [History] Slow-Mag 71.5mg 143 mg PO HS 05/06/16 [History] Sodium Bicarbonate Tab 650 mg PO BID 05/06/16 [History] Isosorbide Mononitrate ER [Imdur] 30 mg PO QAM 06/24/16 [History] Metoprolol Tartrate [Lopressor] 25 mg PO MoTuWeThFr@0900,2100 tab 06/30/16 [Rx] Montelukast [Singulair] 10 mg PO HS #30 tab 06/30/16 [Rx] predniSONE 5 mg PO BID #14 tab 06/30/16 [Rx] Follow up Appointment(s)/Referral(s): Kyle Campos MD [Primary Care Provider] - 1 Week Gricelda Andrea MD [STAFF PHYSICIAN] - 1 Week Activity/Diet/Wound Care/Special Instructions: Diet: diabetic, cardiac Activity: as tolerated Discharge Disposition: HOME SELF-CARE
[2016-06-30 14:02] LABS: Hemoglobin A1C 7.2 % (4.2-6.1)
[2016-06-30 14:32] VITALS: BMI 35.2
--- NOTE | 2016-06-30 15:38 | PN ---
Patient is seen for followup for end-stage renal disease. Currently she remains on insulin drip, as her blood sugars were running high. The steroids have been decreased. She otherwise feels fairly well. Patient is scheduled for hemodialysis today. On examination, blood pressure is 112/66, heart rate 66 per minute. She is afebrile. EXAMINATION OF THE HEART: S1 and S2. EXAMINATION OF THE LUNGS: Bilateral breath sounds are heard. Decreased breath sounds at the bases. ABDOMEN: Soft, nontender. Examination of lower extremities shows no evidence of edema. PILOT CONTROL OPERATOR exam is grossly intact. Labs show sodium 138, potassium 5.2. ASSESSMENT: 1. End-stage renal disease, on hemodialysis on a Sunday, Sunday, Sunday schedule. 2. Chronic cough, possibly associated with mold allergy, currently improved with steroids. 3. Type 2 diabetes with uncontrolled sugars secondary to steroids, currently maintained on insulin drip. Will try to discontinue the drip and maintain patient on her home dose of insulin. 4. Chronic kidney disease bone mineral disorder, maintained on PhosLo and Sensipar. 5. Anemia of chronic disease, maintained on Aranesp. PLAN: Hemodialysis today. Discontinue insulin drip and maintain patient on her home dose of insulin. Her blood sugars should be better controlled, as the steroids have been decreased. Possible discharge today.
[2016-06-30 16:47] LABS: Glucose,Whole Blood 369 mg/dL (75-99)
[2016-06-30] MEDS ORDERED: GELATIN SPONGE,ABSORB (SMALL) 1 EACH SPONGE ONE (20:45)
[2016-06-30 20:55] LABS: Glucose,Whole Blood 255 mg/dL (75-99)
[2016-06-30] MEDS ORDERED: INSULIN GLARGINE 100 UNIT/ML 10 ML VIAL SQ SCH ×2 (21:00)
[2016-06-30] MEDS: ATORVASTATIN 40 MG TAB PO SCH (21:01)
[2016-06-30] MEDS: CINACALCET 30 MG TAB PO SCH (21:01)
[2016-06-30] MEDS: CLOPIDOGREL 75 MG TAB PO SCH (21:01)
[2016-06-30] MEDS: ASPIRIN 81 MG CHEW PO SCH (21:01)
[2016-06-30] MEDS: MONTELUKAST 10 MG TAB PO SCH (21:02)
[2016-06-30] MEDS: SERTRALINE 50 MG TAB PO SCH (21:03)
[2016-06-30 21:24] VITALS: BP 127/67; PULSE 69; TEMP 98
== END 2016-06-30 21:44 | disposition home or self-care (01) | DRG 391 ==
LOC: EC 14:54 → 6SEL 17:47
PROVIDERS: ADMIT Internal Medicine; ATTEND Internal Medicine
PROC: 5A1D60Z (ICD-10-PCS; principal; 2016-06-25)
DX: K21.9 Gastro-esophageal reflux disease without esophagitis (principal); N18.6 End stage renal disease; E88.89 Other specified metabolic disorders; N17.9 Acute kidney failure, unspecified; I12.0 Hypertensive chronic kidney disease with stage 5 chronic kidney disease or end stage renal disease; E11.40 Type 2 diabetes mellitus with diabetic neuropathy, unspecified; E87.5 Hyperkalemia; E66.9 Obesity, unspecified; D63.1 Anemia in chronic kidney disease; E03.9 Hypothyroidism, unspecified; E78.2 Mixed hyperlipidemia; F32.9 Major depressive disorder, single episode, unspecified; G47.33 Obstructive sleep apnea (adult) (pediatric); M10.9 Gout, unspecified; I25.10 Atherosclerotic heart disease of native coronary artery without angina pectoris; J45.909 Unspecified asthma, uncomplicated; E11.319 Type 2 diabetes mellitus with unspecified diabetic retinopathy without macular edema; Z77.22 Contact with and (suspected) exposure to environmental tobacco smoke (acute) (chronic); R53.81 Other malaise; T38.0X5A Adverse effect of glucocorticoids and synthetic analogues, initial encounter; E11.65 Type 2 diabetes mellitus with hyperglycemia; Z99.89 Dependence on other enabling machines and devices; Z77.120 Contact with and (suspected) exposure to mold (toxic); I25.2 Old myocardial infarction; Z95.5 Presence of coronary angioplasty implant and graft; Z99.2 Dependence on renal dialysis; Z79.4 Long term (current) use of insulin; Z95.1 Presence of aortocoronary bypass graft; Z82.49 Family history of ischemic heart disease and other diseases of the circulatory system; Z79.82 Long term (current) use of aspirin; Z79.02 Long term (current) use of antithrombotics/antiplatelets; Z88.5 Allergy status to narcotic agent; Z83.3 Family history of diabetes mellitus; Z88.1 Allergy status to other antibiotic agents; Z88.8 Allergy status to other drugs, medicaments and biological substances; Z68.35 Body mass index [BMI] 35.0-35.9, adult
CPT/HCPCS: 36415; 71010; 71020; 80048; 83036; 83735; 84100; 84132; 84484; 85025; 87340; 87502; 90935; 93005; 96374; 99285

== ENCOUNTER 2016-07-03 10:41 | Inpatient (IN) | payer MEDICARE, BC ==
[2016-07-03] MEDS ORDERED: ONDANSETRON 4 MG/2 ML VIAL IVP STA (11:18)
[2016-07-03] MEDS ORDERED: SODIUM CHLORIDE 0.9% 1,000 ML IV STA (11:18)
[2016-07-03 12:09] LABS: Anisocytosis Slight; Basophils % (A) 0 %; CH 29.5; CHCM 31.6; Eosinophils # (A) 0.2 k/uL (0-0.7); Eosinophils % (A) 1 %; HCT 35.8 % (34.0-46.0); HDW 3.07; HGB 11.1 gm/dL (11.4-16.0); Hypochromasia Slight; Luc # (Auto) 0.07; Luc % (Auto) 1; Lymphocytes # (A) 1.5 k/uL (1.0-4.8); Lymphocytes % (A) 11 %; MCV 93.5 fL (80.0-100.0); Macrocytosis Slight; Mean Platelet Volume 7.9; Monocytes # (A) 0.5 k/uL (0-1.0); Monocytes % (A) 3 %; Neutrophils % (A) 84 %; RBC 3.83 m/uL (3.80-5.40); RDW 19.4 % (11.5-15.5); WBC 14.2 k/uL (3.8-10.6); WBC (Perox) 14.64
--- NOTE | 2016-07-03 12:10 | XR ---
EXAMINATION TYPE: XR chest 2V DATE OF EXAM: 07/03/2016 12:00 PM HISTORY: Chest pain. REFERENCE: Previous study dated 06/27/2016. FINDINGS: There has been a midline sternotomy. The heart is mildly enlarged. There is some scarring or atelectasis in the left midlung. Lungs otherw ise clear. Pleural spaces are clear. IMPRESSION: 1. CARDIOMEGALY. 2. SCARRING VERSUS ATELECTASIS, LEFT MIDLUNG.
[2016-07-03 12:12] LABS: Calcium 8.1 mg/dL (8.4-10.2); Magnesium 1.6 mg/dL (1.6-2.3); Potassium 3.5 mmol/L (3.5-5.1); Total Bilirubin 0.5 mg/dL (0.2-1.3); Total Protein 6.9 g/dL (6.3-8.2)
[2016-07-03 12:23] LABS: Partial Thromboplastin Time 23.4 sec (22.0-30.0); Prothrombin Time 10.5 sec (9.0-12.0)
[2016-07-03 12:35] LABS: Creatine Kinase MB 1.5 ng/mL (0.0-2.4)
[2016-07-03 12:40] LABS: Troponin I 0.101 ng/mL (0.000-0.034)
--- NOTE | 2016-07-03 14:31 | ED ---
Chest Pain HPI - General Chief Complaint: Chest Pain Stated Complaint: Chest Pain/Sent from Dialysis Time Seen by Provider: 07/03/16 10:53 Source: patient Mode of arrival: ambulatory Limitations: no limitations - History of Present Illness Initial Comments: Data chest pain when she was going through dialysis chest pain started around 9: 30 10 AM she was in the middle of dialysis at that time she is a known cardiac she had a CABG done now and now than she had his stents after the CABG last stent was for an April 2016 pain is on the left side of the chest and radiates to the back she denies any shortness of breath he denies any pleuritic chest pain she been nauseous and she was diaphoretic and she said she is a diabetic they checked his sugar his sugar was normal. She denies any signs of TIA or CVA 0 - Related Data Home Medications Medication Instructions Recorded Confirmed Allopurinol [Zyloprim] 100 mg PO DAILY@0900 11/15/14 07/03/16 Gabapentin [Neurontin] 100 mg PO BID@0900,209911/15/14 07/03/16 Omeprazole [PriLOSEC] 20 mg PO BID@0900,209901/31/15 07/03/16 Epoetin Adam [Epogen] 4,000 unit IV MOWEFR 03/03/15 07/03/16 Insulin Glargine [Lantus] 30 unit SQ HS 03/03/15 07/03/16 Loperamide [Imodium] 2 mg PO QID PRN 03/03/15 07/03/16 Mv-Min/Vit C/Glu/Karla HCl/Hc124 1 tab PO QID PRN 03/03/15 07/03/16 [Airborne Tablet Chewable] Sertraline [Zoloft] 50 mg PO HS 03/03/15 07/03/16 Atorvastatin [Lipitor] 40 mg PO HS 04/23/15 07/03/16 Clopidogrel [Plavix] 75 mg PO HS 04/23/15 07/03/16 Aspirin [Adult Low Dose Aspirin EC] 81 mg PO HS 05/06/16 07/03/16 Calcium Acetate [PhosLo] 667 mg PO AC-TID 05/06/16 07/03/16 Cinacalcet HCl [Sensipar] 30 mg PO HS 05/06/16 07/03/16 Furosemide [Lasix] 80 mg PO BID 05/06/16 07/03/16 Insulin Aspart [NovoLOG] See Protocol SQ AC-TID 05/06/16 07/03/16 Midodrine [ProAmatine] 5 mg PO MOWEFR 05/06/16 07/03/16 Slow-Mag 71.5mg 71.5 mg PO QAM 05/06/16 07/03/16 Slow-Mag 71.5mg 143 mg PO HS 05/06/16 07/03/16 Sodium Bicarbonate Tab 650 mg PO BID 05/06/16 07/03/16 Isosorbide Mononitrate ER [Imdur] 30 mg PO QAM 06/24/16 07/03/16 Previous Rx's Medication Instructions Recorded Nitroglycerin Sl Tabs [Nitrostat] 0.4 mg SUBLINGUAL Q5M PRN #25 tab 11/19/14 Metoprolol Tartrate [Lopressor] 25 mg PO MoTuWeThFr@0900,2100 tab 06/30/16 Montelukast [Singulair] 10 mg PO HS #30 tab 06/30/16 predniSONE 5 mg PO BID #14 tab 06/30/16 Allergies Allergy/AdvReac Type Severity Reaction Status Date / Time adhesive Allergy Rash/Hives Verified 07/03/16 11:20 cephalexin monohydrate Allergy Rash/Hives Verified 07/03/16 11:20 [From Keflex] hydromorphone HCl Allergy Hallucinati Verified 07/03/16 11:20 [From Dilaudid] ons iodine Allergy Rash/Hives Verified 07/03/16 11:20 shellfish derived [Shrimp] Allergy Rash/Hives Verified 07/03/16 11:20 hydrocodone bitartrate AdvReac Itching Verified 07/03/16 11:20 [From Vicodin] morphine AdvReac Hallucinati Verified 07/03/16 11:20 ons tramadol AdvReac Itching Verified 07/03/16 11:20 artifical sweetener AdvReac Unknown Uncoded 07/03/16 10:50 Review of Systems ROS Statement: Those systems with pertinent positive or pertinent negative responses have been documented in the HPI. ROS Other: All systems not noted in ROS Statement are negative. EKG Findings - EKG Comments: EKG Findings:: EKG is normal sinus rhythm medical rate is 83 KS interval is 134 QRS duration is 102 QT/QTc is 420/493 review of this EKG shows T-wave inversion in lead 1 and a T-wave inversion in lead aVL apart from that no other ST elevation or ST depression noticed this EKG was reviewed with the EKG from the past the stool changes are consistent with the ischemic changes Past Medical History Past Medical History: Coronary Artery Disease (CAD), Diabetes Mellitus, Hyperlipidemia, Hypertension, Myocardial Infarction (MT), Renal Disease, Sleep Apnea/CPAP/BIPAP, Thyroid Disorder Additional Past Medical History / Comment(s): GOUT, ANEMIA REQUITRING BLOOD TRANSFUSION, MILD MITRAL,TRICUSID REGURGITATION Last Myocardial Infarction Date:: 11/14/2014 History of Any Multi-Drug Resistant Organisms: None Reported Past Surgical History: Coronary Bypass/CABG, Heart Catheterization With Stent Additional Past Surgical History / Comment(s): AV fistula, PREVIOUS STENTS TO CIRC AND LAD-HAD REOCCLUSION THEN HAD 3 VESSEL CABG Past Anesthesia/Blood Transfusion Reactions: Previous Problems w/ Anesthesia Additional Past Anesthesia/Blood Transfusion Reaction / Comment(s): POST OP DELIRIUM/AGITATION/PSYCHOSIS-RESOLVED. Date of Last Stent Placement:: 11/14/2014 Past Psychological History: Depression Smoking Status: Never smoker Past Alcohol Use History: None Reported Past Drug Use History: None Reported - Past Family History Mother Family Medical History: Diabetes Mellitus, Myocardial Infarction (MT), Thyroid Disorder Additional Family Medical History / Comment(s): CABG, gout, hypothyroid Sister(s) Family Medical History: Diabetes Mellitus, Thyroid Disorder Father Family Medical History: Diabetes Mellitus General Exam - General Exam Comments Initial Comments: General: The patient is awake and alert, in no distress, and does not appear acutely ill. She looks bit pale Skin: Skin is warm and dry and no rashes or lesions are noted. Eye: Pupils are equal, round and reactive to light, extra-ocular movements are intact; there is normal conjunctiva bilaterally. Ears, nose, mouth and throat: There are moist mucous membranes and no oral lesions. Neck: The neck is supple, there is no tenderness Cardiovascular: There is a regular rate and rhythm. No murmur, rub or gallop is appreciated. Respiratory: To auscultation bilateral, it is crackles at the bases Gastrointestinal: Soft, non-distended, non-tender abdomen without masses or organomegaly noted. There is no rebound or guarding present. Bowel sounds are unremarkable. Back: There is no tenderness to palpation in the midline. There is no obvious deformity. Musculoskeletal: Normal ROM, no tenderness, There is no pedal edema. There is no calf tenderness or swelling. No cords were appreciated. Neurological: CN II-XII intact, Cranial nerves III through XII are intact. There are no obvious motor or sensory deficits. Coordination appears grossly intact. Speech is normal. Psychiatric: Cooperative, appropriate mood & affect, normal judgment. Limitations: no limitations Course Vital Signs 07/03/16 07/03/16 07/03/16 10:48 12:45 14:00 Temperature 97.9 F Pulse Rate 85 82 82 Respiratory 18 16 18 Rate Blood Pressure 162/74 136/60 127/64 O2 Sat by Pulse 98 98 98 Oximetry Critical Care Time Total Critical Care Time: 45 Critical Care Time: She was reassessed couple times her white count is elevated 14.2 d-dimer is elevated 0.7 month troponin is 0.101 BNP is 3309 chest x-ray is positive for cardiomegaly considering d-dimer is elevated and she has chest pain been unable to be able to do a CT angiogram since she is ALLERGIC to sulfa drugs as well as iodine I plan to admit her to Dr. Ankush Field will consult cardiology empirically she be started on the heparin drip based on cardiology and Dr. Campos some recommendation cardiology be consulted and VQ scan be done as a inpatient this was discussed with the patient she is agreeable with Disposition Clinical Impression: Chest pain, Elevated d-dimer, Elevated troponin Disposition: ADMITTED IP TO THIS HOSP Condition: Fair
[2016-07-03] MEDS ORDERED: NITROGLYCERIN SL TABS 0.4 MG TAB SUBLINGUAL PRN ×2 (14:38→18:53)
[2016-07-03] MEDS ORDERED: HEPARIN SODIUM,PORCINE 5,000 UNIT/ML 1 ML VIAL IV PRN (15:15)
[2016-07-03] MEDS: HEPARIN SODIUM,PORCINE/D5W PMX 25,000 UNIT in DEXTROSE/WATER 1 500ML.BAG IV SCH (15:31)
--- NOTE | 2016-07-03 16:33 | NM ---
EXAMINATION TYPE: NM pul vent and perfuse DATE OF EXAM: 07/03/2016 4:28 PM COMPARISON: NONE HISTORY: Shortness of breath TECHNIQUE: Utilizing inhalation of 71.4 mCi Tc 99m DTPA aerosol and intravenous injection of 5.49 mC i of Tc 99m MAA, ventilation and perfusion images are acquired post injection in multiple projections . FINDINGS: Normal radiotracer distribution is noted in the lungs. There is no evidence of mismatched defects. IMPRESSION: NORMAL VENTILATION PERFUSION LUNG SCAN.
[2016-07-03 18:44] LABS: Creatine Kinase MB 1.4 ng/mL (0.0-2.4)
[2016-07-03 18:50] LABS: Troponin I 0.123 ng/mL (0.000-0.034)
[2016-07-03] MEDS ORDERED: LOPERAMIDE 2 MG CAP PO PRN (18:53)
[2016-07-03] MEDS ORDERED: [UNRECOGNIZED DRUG - OTHER] PO PRN (18:53)
[2016-07-03] MEDS: MIDODRINE 5 MG TAB PO SCH (19:17)
[2016-07-03] MEDS: CINACALCET 30 MG TAB PO SCH (20:15)
[2016-07-03] MEDS: ATORVASTATIN 40 MG TAB PO SCH (20:15)
[2016-07-03] MEDS: FUROSEMIDE 80 MG TAB PO SCH (20:15)
[2016-07-03] MEDS: PANTOPRAZOLE 40 MG TABLET PO SCH (20:16)
[2016-07-03] MEDS: MAGNESIUM OXIDE 400 MG TAB PO SCH ×2 (20:16→21:30)
[2016-07-03] MEDS: predniSONE 5 MG TAB PO SCH (20:16)
[2016-07-03] MEDS: GABAPENTIN 100 MG CAP PO SCH (20:16)
[2016-07-03] MEDS: CLOPIDOGREL 75 MG TAB PO SCH (20:16)
[2016-07-03] MEDS: SODIUM BICARBONATE TAB 650 MG TAB PO SCH (20:17)
[2016-07-03] MEDS: SERTRALINE 50 MG TAB PO SCH (20:17)
[2016-07-03 20:47] LABS: Glucose,Whole Blood 167 mg/dL (75-99)
[2016-07-03] MEDS ORDERED: NON-FORMULARY DRUG (Aspirin [Adult Low Dose Aspirin Ec] 81 MG) PO SCH (21:00)
[2016-07-03] MEDS: INSULIN GLARGINE 100 UNIT/ML 10 ML VIAL SQ SCH (21:29)
[2016-07-03] MEDS: INSULIN LISPRO (humaLOG) 300 UNIT/3 ML VIAL SQ SCH (21:30)
[2016-07-03] MEDS: METOPROLOL TARTRATE 25 MG TAB PO SCH (21:30)
[2016-07-03] MEDS: MONTELUKAST 10 MG TAB PO SCH (21:31)
[2016-07-03 22:42] LABS: Anisocytosis Slight; Basophils % (A) 0 %; CH 29.2; CHCM 30.2; Eosinophils # (A) 0.2 k/uL (0-0.7); Eosinophils % (A) 2 %; HCT 34.8 % (34.0-46.0); HDW 2.96; HGB 10.7 gm/dL (11.4-16.0); Hypochromasia Marked; Luc # (Auto) 0.09; Luc % (Auto) 1; Lymphocytes # (A) 1.4 k/uL (1.0-4.8); Lymphocytes % (A) 11 %; MCH 29.8 pg (25.0-35.0); MCHC 30.8 g/dL (31.0-37.0); MCV 96.6 fL (80.0-100.0); Macrocytosis Slight; Mean Platelet Volume 7.9; Monocytes # (A) 0.4 k/uL (0-1.0); Monocytes % (A) 3 %; Neutrophils # (A) 11.3 k/uL (1.3-7.7); Neutrophils % (A) 84 %; RDW 19.2 % (11.5-15.5); WBC 13.4 k/uL (3.8-10.6); WBC (Perox) 14.45
[2016-07-03 22:49] LABS: INR 1.1 (<1.1); Partial Thromboplastin Time 31.8 sec (22.0-30.0); Prothrombin Time 10.9 sec (9.0-12.0)
[2016-07-03 23:20] LABS: Creatine Kinase MB 1.4 ng/mL (0.0-2.4)
[2016-07-03 23:28] LABS: Troponin I 0.116 ng/mL (0.000-0.034)
[2016-07-04 06:16] LABS: Glucose,Whole Blood 208 mg/dL (75-99)
[2016-07-04] MEDS: INSULIN LISPRO (humaLOG) 300 UNIT/3 ML VIAL SQ SCH ×6 (06:37→21:35)
[2016-07-04] MEDS: CALCIUM ACETATE 667 MG CAP PO SCH ×3 (06:40→16:57)
[2016-07-04 07:12] LABS: Anisocytosis Slight; Basophils % (A) 0 %; CH 29.2; Eosinophils # (A) 0.1 k/uL (0-0.7); Eosinophils % (A) 1 %; HCT 35.5 % (34.0-46.0); HDW 2.88; HGB 10.6 gm/dL (11.4-16.0); Hypochromasia Marked; Luc # (Auto) 0.09; Luc % (Auto) 1; Lymphocytes # (A) 1.4 k/uL (1.0-4.8); Lymphocytes % (A) 11 %; MCHC 29.8 g/dL (31.0-37.0); MCV 97.2 fL (80.0-100.0); Macrocytosis Slight; Mean Platelet Volume 7.8; Monocytes # (A) 0.3 k/uL (0-1.0); Monocytes % (A) 2 %; Neutrophils # (A) 11.1 k/uL (1.3-7.7); Neutrophils % (A) 86 %; RBC 3.65 m/uL (3.80-5.40); RDW 19.3 % (11.5-15.5)
[2016-07-04 07:43] LABS: Cholesterol 103 mg/dL (<200); HDL Cholesterol 49 mg/dL (40-60); Triglycerides 116 mg/dL (<150)
[2016-07-04] MEDS: ALLOPURINOL 100 MG TAB PO SCH (08:19)
[2016-07-04] MEDS: predniSONE 5 MG TAB PO SCH ×2 (08:19→21:34)
[2016-07-04] MEDS: MAGNESIUM OXIDE 400 MG TAB PO SCH ×2 (08:19→23:49)
[2016-07-04] MEDS: GABAPENTIN 100 MG CAP PO SCH ×2 (08:19→21:34)
[2016-07-04] MEDS: PANTOPRAZOLE 40 MG TABLET PO SCH ×2 (08:20→21:34)
[2016-07-04] MEDS: SODIUM BICARBONATE TAB 650 MG TAB PO SCH ×2 (08:20→21:34)
[2016-07-04] MEDS ORDERED: ASPIRIN 325 MG TAB PO SCH (09:00)
[2016-07-04] MEDS: FUROSEMIDE 80 MG TAB PO SCH ×2 (10:10→16:57)
[2016-07-04] MEDS: ISOSORBIDE MONONITRATE ER 30 MG TAB.ER.24H PO SCH (10:11)
[2016-07-04] MEDS: METOPROLOL TARTRATE 25 MG TAB PO SCH ×2 (10:11→21:34)
[2016-07-04] MEDS ORDERED: SODIUM CHLORIDE 0.9% 1,000 ML in EMPTY BAG 1 BAG IV ONE (11:20)
[2016-07-04] MEDS ORDERED: ALPRAZolam 0.25 MG TAB PO PRN (11:20)
[2016-07-04] MEDS ORDERED: ATORVASTATIN 80 MG TAB PO STA (11:20)
[2016-07-04] MEDS ORDERED: ASPIRIN 325 MG TAB PO STA (11:20)
[2016-07-04] MEDS ORDERED: ALPRAZolam 0.5 MG TAB PO PRN (11:20)
[2016-07-04] MEDS ORDERED: NITROGLYCERIN SL TABS 0.4 MG TAB SUBLINGUAL PRN (11:20)
--- NOTE | 2016-07-04 11:36 | CONS ---
DATE OF CONSULTATION: CHIEF COMPLAINT: Chest pain. Lavern is a 61-year-old lady with history of coronary artery disease, status post CABG, status post multiple prior angioplasties, end-stage renal disease on hemodialysis, comes in complaining of precordial chest pressure. She describes it as left pericardial area of chest pain that radiated to her left arm and similar to the chest discomfort that she had in the past. It is moderate intensity, pressure-like sensation, came on at rest. She is admitted with a diagnosis of unstable angina. Troponin was slightly elevated, but there is no definite pattern to it. This could either be due to a myocardial infarction or due to the underlying renal failure. She has known CAD and had bypass surgery with MICHELLE to LAD, vein graft to OM1 and OM2. Subsequently was admitted to hospital when the vein grafts were occluded with a patent MICHELLE. The patient had angioplasty of circumflex coronary artery. Subsequently, came in with chest pain and mild troponin elevation. She in April 2016, which revealed a patent LAD, occluded venous graft and there was a new lesion within the ramus and the high OM and the right coronary artery was totally occluded. Right coronary artery was totally occluded. The patient underwent angioplasty of the right coronary artery at that time. Comes in with these symptoms that she did. EKG does not reveal acute ischemic changes. Her hemoglobin is 10.6. Troponin is 0.1, 0.1 and 0.1. BUN is 30, creatinine 3.64. Her chest pressure happened during dialysis. Past medical history is significant for CAD, status post CABG, status post angioplasty of the little traverse vessels, hypertension, dyslipidemia, diabetes, end-stage renal disease on hemodialysis. Current medications include aspirin, Lipitor, PhosLo, Plavix, Lasix, Neurontin, heparin, insulin, Imdur, Imodium, Lopressor, midodrine, Singulair, Protonix, prednisone, Zoloft and sodium bicarb. She has multiple allergies which I reviewed. On exam, comfortable at rest. Afebrile. Vital signs are stable. There is no jugular venous distention. Carotid upstroke is diminished. Chest exam reveals good air entry bilaterally. Heart exam reveals first and second heart sounds. No gallop. Abdomen is soft. Exam of the extremities did not reveal any edema. Peripheral pulses are felt. EPIC INTERFACE ANALYST exam did not reveal focal neurological deficits. Labs are as described above. EKG shows sinus rhythm with evidence of prior inferior wall myocardial infarction and nonspecific ST-T wave changes. ASSESSMENT: 1. Unstable angina. 2. End-stage renal disease on hemodialysis. 3. Coronary artery disease, status post coronary artery bypass graft, status post multivessel angioplasty. PLAN: I will treat the patient with optimal medical therapy. I will talk to Dr. Rothman about doing a cardiac catheterization on her tomorrow.
[2016-07-04 11:48] LABS: Glucose,Whole Blood 207 mg/dL (75-99)
[2016-07-04] MEDS: HEPARIN SODIUM,PORCINE/D5W PMX 25,000 UNIT in DEXTROSE/WATER 1 500ML.BAG IV SCH (12:26)
[2016-07-04 16:56] LABS: Glucose,Whole Blood 332 mg/dL (75-99)
--- NOTE | 2016-07-04 17:48 | P.HPIM ---
History of Present Illness H&P Date: 07/04/16 Chief Complaint: Chest pain Patient is a 61-year-old female with multiple medical problems including previous history of coronary artery disease was previous history of coronary artery bypass graft surgery, previous history of angioplasty and stent placement , insulin-dependent diabetes mellitus, end-stage renal disease on hemodialysis, history of hypertension, history of hyperlipidemia, who presented to [facility] with a chief complaint of chest pain. Patient was evaluated in emergency room and was admitted to telemetry floor for further evaluation and treatment serial EKG and cardiac enzymes were ordered cardiology consultation was requested. Past Medical History Past Medical History: Coronary Artery Disease (CAD), Diabetes Mellitus, Hyperlipidemia, Hypertension, Myocardial Infarction (PR), Renal Disease, Sleep Apnea/CPAP/BIPAP, Thyroid Disorder Additional Past Medical History / Comment(s): GOUT, ANEMIA-pt can't rememebr if she recieved any blood trasfusion, MILD MITRAL,TRICUSID REGURGITATION,esrd gets hemodialysis [id number]-npbp.bronchitis, Last Myocardial Infarction Date:: 11/14/2014 History of Any Multi-Drug Resistant Organisms: None Reported Past Surgical History: Coronary Bypass/CABG, Heart Catheterization, Heart Catheterization With Stent Additional Past Surgical History / Comment(s): AV fistula, PREVIOUS STENTS TO CIRC AND LAD-HAD REOCCLUSION THEN HAD 3 VESSEL CABG Past Anesthesia/Blood Transfusion Reactions: Previous Problems w/ Anesthesia Additional Past Anesthesia/Blood Transfusion Reaction / Comment(s): POST OP DELIRIUM/AGITATION/PSYCHOSIS-RESOLVED. Date of Last Stent Placement:: 11/14/2014 Past Psychological History: Depression Smoking Status: Never smoker Past Alcohol Use History: None Reported Past Drug Use History: None Reported - Past Family History Mother Family Medical History: Diabetes Mellitus, Myocardial Infarction (PR), Thyroid Disorder Additional Family Medical History / Comment(s): CABG, gout, hypothyroid Sister(s) Family Medical History: Diabetes Mellitus, Thyroid Disorder Father Family Medical History: Diabetes Mellitus Medications and Allergies Home Medications Medication Instructions Recorded Confirmed Type Allopurinol [Zyloprim] 100 mg PO DAILY@0900 11/15/14 07/03/16 History Gabapentin [Neurontin] 100 mg PO BID@0900,209911/15/14 07/03/16 History Omeprazole [PriLOSEC] 20 mg PO BID@0900,209901/31/15 07/03/16 History Epoetin Adam [Epogen] 4,000 unit IV MOWEFR 03/03/15 07/03/16 History Insulin Glargine [Lantus] 30 unit SQ HS 03/03/15 07/03/16 History Loperamide [Imodium] 2 mg PO QID PRN 03/03/15 07/03/16 History Mv-Min/Vit C/Glu/Karla HCl/Hc124 1 tab PO QID PRN 03/03/15 07/03/16 History [Airborne Tablet Chewable] Sertraline [Zoloft] 50 mg PO HS 03/03/15 07/03/16 History Atorvastatin [Lipitor] 40 mg PO HS 04/23/15 07/03/16 History Clopidogrel [Plavix] 75 mg PO HS 04/23/15 07/03/16 History Aspirin [Adult Low Dose Aspirin EC] 81 mg PO HS 05/06/16 07/03/16 History Calcium Acetate [PhosLo] 667 mg PO AC-TID 05/06/16 07/03/16 History Cinacalcet HCl [Sensipar] 30 mg PO HS 05/06/16 07/03/16 History Furosemide [Lasix] 80 mg PO BID 05/06/16 07/03/16 History Insulin Aspart [NovoLOG] See Protocol SQ AC-TID 05/06/16 07/03/16 History Midodrine [ProAmatine] 5 mg PO MOWEFR 05/06/16 07/03/16 History Slow-Mag 71.5mg 71.5 mg PO QAM 05/06/16 07/03/16 History Slow-Mag 71.5mg 143 mg PO HS 05/06/16 07/03/16 History Sodium Bicarbonate Tab 650 mg PO BID 05/06/16 07/03/16 History Isosorbide Mononitrate ER [Imdur] 30 mg PO QAM 06/24/16 07/03/16 History Allergies Allergy/AdvReac Type Severity Reaction Status Date / Time adhesive Allergy Rash/Hives Verified 07/03/16 11:20 cephalexin monohydrate Allergy Rash/Hives Verified 07/03/16 11:20 [From Keflex] hydromorphone HCl Allergy Hallucinati Verified 07/03/16 11:20 [From Dilaudid] ons iodine Allergy Rash/Hives Verified 07/03/16 11:20 shellfish derived [Shrimp] Allergy Rash/Hives Verified 07/03/16 11:20 hydrocodone bitartrate AdvReac Itching Verified 07/03/16 11:20 [From Vicodin] morphine AdvReac Hallucinati Verified 07/03/16 11:20 ons tramadol AdvReac Itching Verified 07/03/16 11:20 artifical sweetener AdvReac Unknown Uncoded 07/03/16 10:50 Physical Exam Vitals: Vital Signs Temp Pulse Resp BP Pulse Ox 07/04/16 12:37 97 07/04/16 11:10 97.6 F 65 16 115/59 97 07/04/16 08:35 66 07/04/16 08:00 97.3 F L 66 16 98/54 07/04/16 04:00 97.4 F L 62 14 98/54 97 07/03/16 23:35 16 07/03/16 23:10 74 16 110/55 96 07/03/16 20:00 97.1 F L 80 16 128/59 100 07/03/16 19:03 97.0 F L 99 16 128/56 99 Intake and Output 07/04/16 07/04/16 07/04/16 06:59 14:59 22:59 Intake Total 1115.667 448.467 Balance 1115.667 448.467 Intake: IV 350 Sodium Chloride 0.9% 1, 350 000 ml @ 50 mls/hr IV . Q20H STA Rx#:[id number] Intake, IV Titration 165.667 328.467 Amount Heparin Sodium,Porcine/ 165.667 328.467 D5w Pmx 25,000 unit In Dextrose/Water 1 500ml. bag @ 10 UNITS/KG/HR 20 mls/hr IV .Q24H MUKUND Rx#: [id number] Oral 600 120 Other: Voiding Method Toilet # Voids 1 0 Weight 94.5 kg In general patient is alert and oriented 3 in no apparent distress HEENT head normocephalic and atraumatic Neck is supple no JVD no goiter no lymphadenopathy Chest exam reveals a few scattered crackles no wheezing Cardiac exam reveals regular heart sounds no gallops no murmurs Abdomen is soft nontender no organomegaly Extremity exam reveals no edema no cyanosis or clubbing Results CBC & Chem 7: 07/04/16 06:12 07/03/16 11:50 Labs: Abnormal Lab Results - Last 24 Hours (Table) 07/03/16 07/03/16 07/03/16 Range/Units 18:03 20:46 22:20 WBC (3.8-10.6) k/uL RBC (3.80-5.40) m/uL Hgb (11.4-16.0) gm/dL MCHC (31.0-37.0) g/dL RDW (11.5-15.5) % Neutrophils # (1.3-7.7) k/uL APTT (22.0-30.0) sec POC Glucose (mg/dL) 167 H (75-99) mg/dL Troponin I 0.123 H* 0.116 H* (0.000-0.034) ng/mL 07/03/16 07/03/16 07/04/16 Range/Units 22:20 22:20 06:12 WBC 13.4 H 13.0 H (3.8-10.6) k/uL RBC 3.60 L 3.65 L (3.80-5.40) m/uL Hgb 10.7 L 10.6 L (11.4-16.0) gm/dL MCHC 30.8 L 29.8 L (31.0-37.0) g/dL RDW 19.2 H 19.3 H (11.5-15.5) % Neutrophils # 11.3 H 11.1 H (1.3-7.7) k/uL APTT 31.8 H (22.0-30.0) sec POC Glucose (mg/dL) (75-99) mg/dL Troponin I (0.000-0.034) ng/mL 07/04/16 07/04/16 07/04/16 Range/Units 06:12 06:14 11:45 WBC (3.8-10.6) k/uL RBC (3.80-5.40) m/uL Hgb (11.4-16.0) gm/dL MCHC (31.0-37.0) g/dL RDW (11.5-15.5) % Neutrophils # (1.3-7.7) k/uL APTT 60.3 H (22.0-30.0) sec POC Glucose (mg/dL) 208 H 207 H (75-99) mg/dL Troponin I (0.000-0.034) ng/mL 07/04/16 Range/Units 16:48 WBC (3.8-10.6) k/uL RBC (3.80-5.40) m/uL Hgb (11.4-16.0) gm/dL MCHC (31.0-37.0) g/dL RDW (11.5-15.5) % Neutrophils # (1.3-7.7) k/uL APTT (22.0-30.0) sec POC Glucose (mg/dL) 332 H (75-99) mg/dL Troponin I (0.000-0.034) ng/mL Thrombosis Risk Factor Assmnt - Choose All That Apply Any of the Below Risk Factors Present?: Yes Each Factor Represents 1 point: Acute PR, Age 41-60 years, Obesity (BMI >25) Other Risk Factors: No Other congenital or acquired thrombophilia - If yes, enter type in comment: No Thrombosis Risk Factor Assessment Total Risk Factor Score: 3 Thrombosis Risk Factor Assessment Level: Moderate Risk Assessment and Plan Plan: #1 episode of chest pain in a 61-year-old female with extensive past cardiac history and multiple cardiac risk factors at this time patient is admitted to telemetry floor she was evaluated by cardiology will discuss plans for possible cardiac catheterization. #2 insulin-dependent diabetes mellitus will continue was home dose of insulin #3 end-stage renal disease on hemodialysis continue was hemodialysis #4 hypertension well-controlled on current medications continue #5 hyperlipidemia continue was current management #6 leukocytosis cause is unclear Will check urine analysis patient still makes urine occasionally to rule out urinary tract infection chest x-ray without any evidence of significant infection.
--- NOTE | 2016-07-04 19:27 | CONS ---
DATE OF CONSULTATION: 07/04/2016 REASON FOR CONSULTATION: End-stage renal disease. HISTORY OF PRESENT ILLNESS: Patient is a 61-year-old white female who has end-stage renal disease, on hemodialysis on a Sunday, Sunday, Sunday schedule. Patient was admitted to the hospital with complaints of chest pain. She states the pain has somewhat eased off. Her troponin was 0.12. Patient has been seen by Cardiology. She is maintained on IV heparin and there are plans for cardiac catheterization tomorrow. PAST MEDICAL HISTORY: 1. End-stage renal disease. 2. Anemia of chronic disease. 3. Recent hospitalization for acute on top of chronic cough, possibly related to mold at home. 4. Coronary artery disease with history of coronary artery bypass surgery. 5. Type 2 diabetes. 6. Gastroesophageal reflux disease. 7. CKD bone mineral disorder. 8. Dyslipidemia. Medications include: 1. Imdur. 2. Sodium bicarb. 3. Magnesium. 4. Midodrine. 5. Insulin. 6. Lasix. 7. Sensipar. 8. PhosLo. 9. Plavix. 10. Lipitor. 11. Zoloft. 12. Imodium. 13. Prilosec. 14. Neurontin. 15. Zyloprim. ALLERGIES: MULTIPLE, includin. KEFLEX. 2. DILAUDID. 3. SHRIMP. 4. MORPHINE. 5. TRAMADOL. 6. ARTIFICIAL SWEETENERS. 7. ADHESIVES. REVIEW OF SYSTEMS: As per HPI. Patient denied any nausea, vomiting, diarrhea. She did have some shortness of breath. PAST SURGICAL HISTORY: 1. Cardiac catheterization. 2. Coronary artery bypass surgery. 3. AV fistula. Social history is negative for smoking, drug abuse or alcohol abuse. On examination, patient is comfortable, awake, alert, oriented x3, not in any acute distress. Blood pressure is 115/59, heart rate 65 per minute. She is afebrile. EXAMINATION OF THE HEART: S1 and S2. EXAMINATION OF THE LUNGS: Bilateral breath sounds are heard. ABDOMEN: Soft, nontender. Examination of lower extremities shows no significant edema. SURGICAL TECHNOLOGIST exam is grossly intact. Labs show hemoglobin 10.6 g/dL. Serum potassium was 3.5 yesterday, sodium 141. ASSESSMENT: 1. End-stage renal disease, on hemodialysis on a Sunday, Sunday, Sunday schedule. Will arrange for hemodialysis in a.m. after cardiac catheterization. 2. Chest pain; scheduled for cardiac catheterization in a.m. 3. Anemia of chronic disease. 4. Chronic kidney disease bone mineral disorder. Continue to maintain patient on her home phosphate binders. PLAN: Hemodialysis in a.m. after cardiac catheterization.
[2016-07-04 20:51] LABS: Glucose,Whole Blood 274 mg/dL (75-99)
[2016-07-04] MEDS: SERTRALINE 50 MG TAB PO SCH (21:34)
[2016-07-04] MEDS: ATORVASTATIN 40 MG TAB PO SCH (21:34)
[2016-07-04] MEDS: CLOPIDOGREL 75 MG TAB PO SCH (21:34)
[2016-07-04] MEDS: MONTELUKAST 10 MG TAB PO SCH (21:34)
[2016-07-04] MEDS: CINACALCET 30 MG TAB PO SCH (21:34)
[2016-07-04] MEDS: INSULIN GLARGINE 100 UNIT/ML 10 ML VIAL SQ SCH (21:44)
[2016-07-04 22:01] LABS: Appearance,Urine Cloudy (Clear); Bacteria,Urine Rare /hpf; Bilirubin,Urine Negative (Negative); Glucose,Urine (UA) Trace (Negative); Ketones,Urine Negative (Negative); Leukocyte Esterase,Urine Moderate (Negative); Nitrite,Urine Negative (Negative); Particle Count 17076; Protein,Urine Trace (Negative); RBC,Urine 2 /hpf (0-5); Specific Gravity,Urine 1.013 (1.001-1.035); Squamous Epithelial Cell,Urine 22 /hpf (0-4); UA Billing (MACRO vs. MICRO) MICRO; Urobilinogen,Urine <2.0 mg/dL (<2.0); WBC,Urine 12 /hpf (0-5)
[2016-07-05 05:56] LABS: Glucose,Whole Blood 264 mg/dL (75-99)
[2016-07-05] MEDS ORDERED: ASPIRIN 325 MG TAB PO SCH (06:00)
[2016-07-05] MEDS ORDERED: ATORVASTATIN 80 MG TAB PO SCH (06:00)
[2016-07-05] MEDS: CALCIUM ACETATE 667 MG CAP PO SCH ×3 (06:07→17:44)
[2016-07-05] MEDS: INSULIN LISPRO (humaLOG) 300 UNIT/3 ML VIAL SQ SCH ×8 (06:08→21:20)
[2016-07-05] MEDS: GABAPENTIN 100 MG CAP PO SCH ×2 (06:10→20:33)
[2016-07-05] MEDS: ALLOPURINOL 100 MG TAB PO SCH (06:10)
[2016-07-05] MEDS: ISOSORBIDE MONONITRATE ER 30 MG TAB.ER.24H PO SCH (06:11)
[2016-07-05] MEDS: SODIUM BICARBONATE TAB 650 MG TAB PO SCH ×2 (06:11→20:33)
[2016-07-05] MEDS: METOPROLOL TARTRATE 25 MG TAB PO SCH ×2 (06:11→20:33)
[2016-07-05] MEDS: MAGNESIUM OXIDE 400 MG TAB PO SCH ×2 (06:11→20:33)
[2016-07-05] MEDS: predniSONE 5 MG TAB PO SCH ×2 (06:11→20:33)
[2016-07-05] MEDS: PANTOPRAZOLE 40 MG TABLET PO SCH ×2 (06:11→20:33)
[2016-07-05] MEDS ORDERED: methylPREDNISolone SOD SUCCI 125 MG/2 ML VIAL IV ONE (06:26)
[2016-07-05 06:38] LABS: Anisocytosis Slight; Basophils % (A) 0 %; CH 29.1; CHCM 29.7; Eosinophils # (A) 0.1 k/uL (0-0.7); Eosinophils % (A) 1 %; HCT 33.6 % (34.0-46.0); HDW 2.72; Hypochromasia Marked; Luc # (Auto) 0.07; Luc % (Auto) 1; Lymphocytes # (A) 0.9 k/uL (1.0-4.8); Lymphocytes % (A) 9 %; MCH 29.1 pg (25.0-35.0); MCHC 29.7 g/dL (31.0-37.0); Macrocytosis Slight; Monocytes # (A) 0.3 k/uL (0-1.0); Monocytes % (A) 3 %; Neutrophils # (A) 8.2 k/uL (1.3-7.7); Neutrophils % (A) 86 %; RBC 3.43 m/uL (3.80-5.40); RDW 19.3 % (11.5-15.5); WBC 9.5 k/uL (3.8-10.6); WBC (Perox) 10.11
[2016-07-05] MEDS ORDERED: LIDOCAINE 2% INJ 20 MG/ML (20 ML MDV) ONE (06:52)
[2016-07-05] MEDS ORDERED: SODIUM CHLORIDE 0.9% 500 ML IV ONE (07:00)
[2016-07-05 07:01] LABS: Calcium 7.3 mg/dL (8.4-10.2); Potassium 5.6 mmol/L (3.5-5.1); Total Bilirubin 0.4 mg/dL (0.2-1.3); Total Protein 5.9 g/dL (6.3-8.2)
[2016-07-05] MEDS ORDERED: diphenhydrAMINE 50 MG/ML 1 ML VIAL ONE (07:08)
[2016-07-05] MEDS ORDERED: fentaNYL (PF) 50 MCG/ML 2 ML AMP ONE (07:08)
[2016-07-05] MEDS ORDERED: LIDOCAINE 2% INJ 20 MG/ML SQ ONE (07:18)
[2016-07-05] MEDS ORDERED: diphenhydrAMINE 50 MG/ML 1 ML VIAL IVP ONE (07:18)
[2016-07-05] MEDS ORDERED: fentaNYL (PF) 50 MCG/ML 2 ML AMP IV ONE (07:19)
[2016-07-05] MEDS ORDERED: IODIXANOL 320 MG/ML 100 ML INTRAARTER ONE (07:32)
[2016-07-05] MEDS ORDERED: RX INFO: IV CONTRAST WAS GIVEN 1 EACH MISC MISCELLANE PRN (07:46)
[2016-07-05] MEDS ORDERED: SODIUM CHLORIDE 0.9% 1,000 ML IV SCH (08:00)
[2016-07-05] MEDS ORDERED: ISOSORBIDE MONONITRATE ER 30 MG TAB.ER.24H PO ONE (08:00)
[2016-07-05 08:06] LABS: Glucose,Whole Blood 293 mg/dL (75-99)
[2016-07-05] MEDS ORDERED: DEXTROSE/WATER 1 500ML.BAG with DOPamine DRIP 800 MG IV SCH (08:30)
[2016-07-05] MEDS ORDERED: DARBEPOETIN ALFA 40 MCG/0.4 ML SYRINGE SQ SCH (09:00)
[2016-07-05] MEDS: FUROSEMIDE 80 MG TAB PO SCH ×2 (10:12→17:44)
[2016-07-05 11:34] LABS: Glucose,Whole Blood 240 mg/dL (75-99)
[2016-07-05] MEDS: MIDODRINE 5 MG TAB PO SCH (14:26)
--- NOTE | 2016-07-05 14:33 | CC ---
DATE OF SERVICE: Mrs. Mcqueen is a 61-year-old female with a known history of coronary artery disease, status post coronary artery bypass grafting and multiple percutaneous revascularization, who presented with chest discomfort, at the end of her renal dialysis. She had minimal abnormalities of her troponin that could be related to her chronic kidney disease, but because of her presentation and prior history and after evaluation by Dr. Fernandez, recommendation made regarding cardiac catheterization. The procedure as well as the risks and complications were discussed with the patient who is in full understanding and agreement. PROCEDURE: Patient was brought to the [facility] in fasting semi-sedated state after receiving fentanyl and Benadryl. She was draped and prepped in conventional fashion. Using Xylocaine anesthesia and Seldinger technique, a 6 [place] sheath was introduced in the right femoral artery. Selective right and left coronary angiography performed with 6 [place], 4 bend right and left Jim catheters. Multiple views were obtained of the coronary arteries including hemiaxial views were obtained. Following that, the 6 [place] right Jim catheter was used to cannulate the MICHELLE to the LAD. Images of the grafts were obtained. Following that, a 6 [place] tight pigtail catheter was introduced into the left ventricle and pressures were calculated. Following that, catheter and sheaths were removed. Hemostasis was obtained with deployment of an Angio-Seal. There were no immediate complications. Patient is returned to her room in stable condition. FINDINGS: LEFT MAIN: This is a large-size vessel bifurcating into left circumflex, ramus intermedius and left anterior descending artery. Left main coronary artery has no evidence of high-grade stenosis. LEFT ANTERIOR DESCENDING ARTERY: This vessel is totally occluded proximally with no significant antegrade flow at the takeoff of the first septal denial resolution specialist. RAMUS INTERMEDIUS: This is a large-size vessel reaching toward the lateral apical segment. The stented segment is patent. There is diffuse intimal disease distal to the stent with a very small caliber of the vessel. LEFT CIRCUMFLEX: This vessel is totally occluded in the mid segment with no significant antegrade flow. RIGHT CORONARY ARTERY: This vessel is totally occluded after the takeoff of the acute marginal branch. MICHELLE to the LAD: The distal anastomotic site is patent. The flow in the LAD is brisk. There is no evidence of significant obstructive disease. HEMODYNAMICS: There was no gradient across the aortic valve. The left ventricular end-diastolic pressure was 24 mmHg. CONCLUSION: 1. Severe triple vessel coronary artery disease. 2. Patent stent to the ramus intermedius. 3. Patent MICHELLE to LAD. 4. Chronic occluded LAD, right coronary artery and left circumflex. RECOMMENDATION: In view of finding anatomy, I have recommended continued medical therapy with aggressive risk modification that has been initiated. Those findings and recommendations were discussed with the patient and she was in full understanding and agreement.
--- NOTE | 2016-07-05 14:38 | LTR ---
July 05, 2016 RE: Richar Lavern Dix[place] Dear Dr. Campos; I had the pleasure to perform cardiac catheterization on Mrs. Mcqueen at [facility] on July 05, 2016 and a full copy of the procedure note will be forwarded to you. In brief, she was found to have patent stent to the ramus intermedius with a patent MICHELLE to LAD and chronically occluded LAD, right coronary artery and left circumflex. Based on those findings, I have recommended to continue medical therapy. Depending on her progress, further recommendation will be made. Thank you again for allowing me to participate in this patient's care. Please feel free to call for any questions. Sincerely, PATY COHEN MD
[2016-07-05 16:49] LABS: Glucose,Whole Blood 217 mg/dL (75-99)
--- NOTE | 2016-07-05 17:35 | P.PN ---
Subjective Principal diagnosis: Unstable angina Patient is a 61-year-old female admitted to [facility] was an episode of chest pain Patient has a known history of coronary artery disease she is status post coronary artery bypass graft surgery, she also had angioplasty and stent placement in the past. Patient underwent cardiac catheterization today with Dr. Rothman, patient has severe coronary artery disease however, no specific intervention on any lesion at this time. Aggressive medical management was recommended. Clinically patient is doing better, no new episodes of chest pain, however she had an episode of severe dizziness with hypotension after cardiac catheterization today. Objective - Vital Signs Vital signs: Vital Signs Temp 99.1 F 07/05/16 16:00 Pulse 81 07/05/16 16:00 Resp 14 07/05/16 16:00 BP 128/94 07/05/16 16:00 Pulse Ox 96 07/05/16 16:00 Intake & Output 07/04/16 07/05/16 07/05/16 18:59 06:59 18:59 Intake Total 568.467 671 100 Output Total 0 0 Balance 568.467 671 100 Weight 96.6 kg Intake: IV 551 100 Sodium Chloride 0.9% 1, 551 000 ml @ 50 mls/hr IV . Q20H STA Rx#:[id number] Intake, IV Titration 328.467 Amount Heparin Sodium,Porcine/ 328.467 D5w Pmx 25,000 unit In Dextrose/Water 1 500ml. bag @ 10 UNITS/KG/HR 20 mls/hr IV .Q24H MUKUND Rx#: [id number] Oral 240 120 Output: Urine 0 0 Other: Voiding Method Toilet Toilet Toilet # Voids 0 0 - Exam In general patient is alert and oriented 3 in no apparent distress HEENT without any acute abnormality Neck is supple no JVD no goiter no lymphadenopathy Chest is clear to auscultation no wheezing Cardiac exam reveals regular heart sounds no murmurs Abdomen is soft nontender no organomegaly extremity exam reveals no edema - Labs CBC & Chem 7: 07/05/16 06:05 07/05/16 06:05 Labs: Abnormal Lab Results - Last 24 Hours (Table) 07/04/16 07/04/16 07/05/16 Range/Units 20:49 21:47 05:41 RBC (3.80-5.40) m/uL Hgb (11.4-16.0) gm/dL Hct (34.0-46.0) % MCHC (31.0-37.0) g/dL RDW (11.5-15.5) % Neutrophils # (1.3-7.7) k/uL Lymphocytes # (1.0-4.8) k/uL Potassium (3.5-5.1) mmol/L Carbon Dioxide (22-30) mmol/L BUN (7-17) mg/dL Creatinine (0.52-1.04) mg/dL Glucose (74-99) mg/dL POC Glucose (mg/dL) 274 H 264 H (75-99) mg/dL Calcium (8.4-10.2) mg/dL AST (14-36) U/L ALT (9-52) U/L Alkaline Phosphatase (38-126) U/L Total Protein (6.3-8.2) g/dL Urine Appearance Cloudy H (Clear) Urine Protein Trace H (Negative) Urine Glucose (UA) Trace H (Negative) Urine Blood Trace H (Negative) Ur Leukocyte Esterase Moderate H (Negative) Urine WBC 12 H (0-5) /hpf Ur Squamous Epith Cells 22 H (0-4) /hpf Urine Bacteria Rare H (None) /hpf Hyaline Casts 4 H (0-2) /lpf 07/05/16 07/05/16 07/05/16 Range/Units 06:05 06:05 07:56 RBC 3.43 L (3.80-5.40) m/uL Hgb 10.0 L (11.4-16.0) gm/dL Hct 33.6 L (34.0-46.0) % MCHC 29.7 L (31.0-37.0) g/dL RDW 19.3 H (11.5-15.5) % Neutrophils # 8.2 H (1.3-7.7) k/uL Lymphocytes # 0.9 L (1.0-4.8) k/uL Potassium 5.6 H (3.5-5.1) mmol/L Carbon Dioxide 21 L (22-30) mmol/L BUN 63 H (7-17) mg/dL Creatinine 7.25 H* (0.52-1.04) mg/dL Glucose 263 H (74-99) mg/dL POC Glucose (mg/dL) 293 H (75-99) mg/dL Calcium 7.3 L (8.4-10.2) mg/dL AST 47 H (14-36) U/L ALT 61 H (9-52) U/L Alkaline Phosphatase 226 H (38-126) U/L Total Protein 5.9 L (6.3-8.2) g/dL Urine Appearance (Clear) Urine Protein (Negative) Urine Glucose (UA) (Negative) Urine Blood (Negative) Ur Leukocyte Esterase (Negative) Urine WBC (0-5) /hpf Ur Squamous Epith Cells (0-4) /hpf Urine Bacteria (None) /hpf Hyaline Casts (0-2) /lpf 07/05/16 07/05/16 Range/Units 11:32 16:44 RBC (3.80-5.40) m/uL Hgb (11.4-16.0) gm/dL Hct (34.0-46.0) % MCHC (31.0-37.0) g/dL RDW (11.5-15.5) % Neutrophils # (1.3-7.7) k/uL Lymphocytes # (1.0-4.8) k/uL Potassium (3.5-5.1) mmol/L Carbon Dioxide (22-30) mmol/L BUN (7-17) mg/dL Creatinine (0.52-1.04) mg/dL Glucose (74-99) mg/dL POC Glucose (mg/dL) 240 H 217 H (75-99) mg/dL Calcium (8.4-10.2) mg/dL AST (14-36) U/L ALT (9-52) U/L Alkaline Phosphatase (38-126) U/L Total Protein (6.3-8.2) g/dL Urine Appearance (Clear) Urine Protein (Negative) Urine Glucose (UA) (Negative) Urine Blood (Negative) Ur Leukocyte Esterase (Negative) Urine WBC (0-5) /hpf Ur Squamous Epith Cells (0-4) /hpf Urine Bacteria (None) /hpf Hyaline Casts (0-2) /lpf Assessment and Plan Plan: #1 episode of chest pain in a 61-year-old female with extensive past cardiac history and multiple cardiac risk factors at this time patient is admitted to telemetry, patient had cardiac catheterization today results as above no intervention is amenable at this time, recommendation to continue was aggressive medical management #2 insulin-dependent diabetes mellitus will continue was home dose of insulin #3 end-stage renal disease on hemodialysis continue was hemodialysis #4 hypertension well-controlled on current medications continue #5 hyperlipidemia continue was current management #6 leukocytosis cause is unclear Will check urine analysis patient still makes urine occasionally to rule out urinary tract infection chest x-ray without any evidence of significant infection.
--- NOTE | 2016-07-05 19:54 | PN ---
Patient is seen on hemodialysis. She is tolerating her treatment well. She did have cardiac catheterization this morning and she was noted to have severe triple vessel disease and patent stent of her previous coronary artery bypass surgeries. Medical therapy was recommended. Currently patient denies any chest pain. She is lying comfortably, not in any acute distress. Blood pressure is 130/58, heart rate of 69 per minute. The patient is afebrile. Examination of the heart S1 and S2. Examination of the lungs: Bilateral breath sounds are heard. ABDOMEN: Soft, nontender. Examination of the lower extremities shows no significant edema. Labs show sodium 140, potassium 5.6, BUN 63, serum creatinine 7.25. Hemoglobin at 10 g/dL. ASSESSMENT: 1. End-stage renal disease on hemodialysis on a Sunday, Sunday, Sunday schedule. We will try for about 2 liters of ultrafiltration today and if blood pressure is low, we will decrease that to about 1.5 liters. 2. Chest pain on admission with patent grafts on cardiac catheterization, which was done this morning. 3. Hyperkalemia. Expect further improvement with hemodialysis today. 4. Anemia of chronic disease. 5. Chronic kidney disease bone mineral disorder. PLAN: Possible discharge tomorrow.
[2016-07-05] MEDS: CLOPIDOGREL 75 MG TAB PO SCH (20:32)
[2016-07-05] MEDS: MONTELUKAST 10 MG TAB PO SCH (20:33)
[2016-07-05] MEDS: CINACALCET 30 MG TAB PO SCH (20:33)
[2016-07-05] MEDS: SERTRALINE 50 MG TAB PO SCH (20:33)
[2016-07-05] MEDS: INSULIN GLARGINE 100 UNIT/ML 10 ML VIAL SQ SCH (21:19)
[2016-07-05 21:26] LABS: Glucose,Whole Blood 221 mg/dL (75-99)
[2016-07-06 02:07] VITALS: RESP 16
[2016-07-06 03:24] VITALS: PULSE 72
[2016-07-06 06:12] LABS: Glucose,Whole Blood 280 mg/dL (75-99)
[2016-07-06 06:28] LABS: Anisocytosis Slight; Basophils % (A) 0 %; CH 28.8; Eosinophils % (A) 0 %; HCT 33.3 % (34.0-46.0); HDW 2.61; HGB 9.8 gm/dL (11.4-16.0); Hypochromasia Marked; Luc % (Auto) 1; Lymphocytes # (A) 0.8 k/uL (1.0-4.8); Lymphocytes % (A) 6 %; MCH 29.4 pg (25.0-35.0); MCHC 29.6 g/dL (31.0-37.0); MCV 99.4 fL (80.0-100.0); Macrocytosis Moderate; Mean Platelet Volume 7.9; Monocytes # (A) 0.4 k/uL (0-1.0); Monocytes % (A) 4 %; Neutrophils # (A) 10.9 k/uL (1.3-7.7); Neutrophils % (A) 89 %; RBC 3.35 m/uL (3.80-5.40); RDW 18.8 % (11.5-15.5); WBC 12.2 k/uL (3.8-10.6); WBC (Perox) 12.82
[2016-07-06] MEDS: CALCIUM ACETATE 667 MG CAP PO SCH ×2 (07:15→11:46)
[2016-07-06] MEDS: INSULIN LISPRO (humaLOG) 300 UNIT/3 ML VIAL SQ SCH ×4 (07:16→11:46)
[2016-07-06] MEDS: GABAPENTIN 100 MG CAP PO SCH (08:16)
[2016-07-06] MEDS: FUROSEMIDE 80 MG TAB PO SCH (08:17)
[2016-07-06] MEDS: ALLOPURINOL 100 MG TAB PO SCH (08:17)
[2016-07-06] MEDS: PANTOPRAZOLE 40 MG TABLET PO SCH (08:18)
[2016-07-06] MEDS: METOPROLOL TARTRATE 25 MG TAB PO SCH (08:18)
[2016-07-06] MEDS: MAGNESIUM OXIDE 400 MG TAB PO SCH (08:18)
[2016-07-06] MEDS: SODIUM BICARBONATE TAB 650 MG TAB PO SCH (08:19)
[2016-07-06] MEDS: predniSONE 5 MG TAB PO SCH (08:20)
--- NOTE | 2016-07-06 08:54 | P.PN ---
Subjective Patient is seen in follow-up for end-stage renal disease. She is maintained on hemodialysis on a Sunday schedule. Patient presented with chest pain and underwent cardiac catheterization on July 05 which revealed severe triple vessel disease with patent stent. She currently denies any active chest pain or shortness of breath. Appetite is good. Vital signs are stable. General: The patient appeared well nourished and normally developed. HEENT: Head exam is unremarkable. Neck is without jugular venous distension. LUNGS: Lungs are clear to auscultation and percussion. Breath sounds decreased. HEART: Rate and Rhythm are regular. First and second heart sounds normal. No murmurs, rubs or gallops. ABDOMEN: Abdominal exam reveals normal bowel sounds. Non-tender and non- distended. No evidence of peritonitis. EXTREMITITES: No clubbing, cyanosis, or edema. Objective - Vital Signs Vital signs: Vital Signs Temp 97 F L 07/06/16 03:00 Pulse 72 07/06/16 03:00 Resp 16 07/06/16 03:00 BP 98/51 07/06/16 03:00 Pulse Ox 95 07/06/16 03:00 Intake & Output 07/05/16 07/06/16 07/06/16 18:59 06:59 18:59 Intake Total 360 600 126 Output Total 0 Balance 360 600 126 Weight 95.5 kg Intake: IV 100 Oral 260 600 126 Output: Urine 0 Other: Voiding Method Toilet # Voids 0 - Labs CBC & Chem 7: 07/06/16 06:07 07/05/16 06:05 Labs: Abnormal Lab Results - Last 24 Hours (Table) 07/05/16 07/05/16 07/05/16 Range/Units 11:32 16:44 21:15 WBC (3.8-10.6) k/uL RBC (3.80-5.40) m/uL Hgb (11.4-16.0) gm/dL Hct (34.0-46.0) % MCHC (31.0-37.0) g/dL RDW (11.5-15.5) % Neutrophils # (1.3-7.7) k/uL Lymphocytes # (1.0-4.8) k/uL POC Glucose (mg/dL) 240 H 217 H 221 H (75-99) mg/dL 07/06/16 07/06/16 Range/Units 06:07 06:10 WBC 12.2 H (3.8-10.6) k/uL RBC 3.35 L (3.80-5.40) m/uL Hgb 9.8 L (11.4-16.0) gm/dL Hct 33.3 L (34.0-46.0) % MCHC 29.6 L (31.0-37.0) g/dL RDW 18.8 H (11.5-15.5) % Neutrophils # 10.9 H (1.3-7.7) k/uL Lymphocytes # 0.8 L (1.0-4.8) k/uL POC Glucose (mg/dL) 280 H (75-99) mg/dL Assessment and Plan Plan: Assessment: #1. End-stage renal disease maintained on hemodialysis on a Sunday schedule. #2. Chest pain status post cardiac catheterization which revealed severe triple -vessel disease. #3. Anemia of chronic kidney disease. #4. Chronic kidney disease mineral bone disease. Plan: Hemodialysis tomorrow with goal to liters ultra filtration. Maintain Aranesp. Maintain PhosLo with meals. Stable to be discharged home from nephrology standpoint once cleared by cardiology.
[2016-07-06] MEDS ORDERED: FOLIC ACID-VIT B COMPLEX-VIT C 1 CAP PO SCH (09:00)
[2016-07-06] MEDS ORDERED: ISOSORBIDE MONONITRATE ER 60 MG TAB.ER.24H PO SCH (09:00)
[2016-07-06] MEDS ORDERED: ASPIRIN 81 MG CHEW PO SCH (09:00)
--- NOTE | 2016-07-06 10:20 | P.PN ---
Subjective Principal diagnosis: Chest pain This is a 61-year-old female with known history of coronary artery disease with prior bypass surgery, multiple angioplasties in the past, end- stage renal disease on hemodialysis, diabetes, hypertension, hyperlipidemia. She presented to the hospital with symptoms of chest discomfort, underwent a cardiac catheterization yesterday by Dr. Rothman, cardiac catheterization revealed severe triple-vessel coronary artery disease with a patent stent in the ramus intermediate, patent MICHELLE to the LAD, chronically occluded LAD, RCA, and circumflex. Medical therapy was advised. Yesterday following the procedure patient did have an episode of hypotension requiring fluid administration as well as dopamine. This morning patient is off of her dopamine and fluids, she did have a dialysis treatment as well. Overall feels quite well, denies any dizziness or lightheadedness. No chest discomfort. Blood pressure this morning 132/60 , heart rate in the 70s. From cardiology's perspective, she should be able to be discharged home today. A follow-up appointment will be made with Dr. Rothman in the office post discharge. Objective - Vital Signs Vital signs: Vital Signs Temp 97 F L 07/06/16 03:00 Pulse 72 07/06/16 03:00 Resp 16 07/06/16 03:00 BP 98/51 07/06/16 03:00 Pulse Ox 95 07/06/16 03:00 Intake & Output 07/05/16 07/06/16 07/06/16 18:59 06:59 18:59 Intake Total 360 600 126 Output Total 0 Balance 360 600 126 Weight 95.5 kg Intake: IV 100 Oral 260 600 126 Output: Urine 0 Other: Voiding Method Toilet # Voids 0 - Exam PHYSICAL EXAMINATION: HEENT: Head is atraumatic, normocephalic. Pupils equal, round. Neck is supple. There is no elevated jugular venous pressure. HEART EXAMINATION: Heart S1, S2 normal. No murmur or gallop heard. CHEST EXAMINATION: Lungs are clear to auscultation and precussion. No chest wall tenderness is noted on palpation or with deep breathing. ABDOMEN: Soft, obese, nontender. Bowel sounds are heard. No organomegaly noted. Right groin soft, no evidence of any hematoma. EXTREMITIES: 2+ peripheral pulses with trace evidence of peripheral edema and no calf tenderness noted. NEUROLOGIC patient is awake, alert and oriented -3. . - Labs CBC & Chem 7: 07/06/16 06:07 07/05/16 06:05 Labs: Abnormal Lab Results - Last 24 Hours (Table) 07/05/16 07/05/16 07/05/16 Range/Units 11:32 16:44 21:15 WBC (3.8-10.6) k/uL RBC (3.80-5.40) m/uL Hgb (11.4-16.0) gm/dL Hct (34.0-46.0) % MCHC (31.0-37.0) g/dL RDW (11.5-15.5) % Neutrophils # (1.3-7.7) k/uL Lymphocytes # (1.0-4.8) k/uL POC Glucose (mg/dL) 240 H 217 H 221 H (75-99) mg/dL 07/06/16 07/06/16 Range/Units 06:07 06:10 WBC 12.2 H (3.8-10.6) k/uL RBC 3.35 L (3.80-5.40) m/uL Hgb 9.8 L (11.4-16.0) gm/dL Hct 33.3 L (34.0-46.0) % MCHC 29.6 L (31.0-37.0) g/dL RDW 18.8 H (11.5-15.5) % Neutrophils # 10.9 H (1.3-7.7) k/uL Lymphocytes # 0.8 L (1.0-4.8) k/uL POC Glucose (mg/dL) 280 H (75-99) mg/dL Assessment and Plan (1) ESRD (end stage renal disease) on dialysis Status: Acute (2) Hx of CABG Status: Acute (3) S/P cardiac cath Status: Acute (4) Hypotension Status: Acute (5) Chest pain Status: Acute (6) Hyperlipidemia Status: Acute (7) Hypertension Status: Acute (8) Presence of stent in LAD coronary artery Status: Acute (9) ST elevation myocardial infarction (STEMI) Status: Acute (10) Coronary artery disease Status: Chronic Plan: From cardiology's perspective, patient may be able to be discharged home today. Follow-up appointment will be made with Dr. Rothman in the office in one week. DNP note has been reviewed, I agree with a documented findings and plan of care. Patient was seen and examined.
[2016-07-06 10:25] VITALS: BP 101/51; TEMP 96.7
--- NOTE | 2016-07-06 11:32 | P.DS ---
Providers Date of admission: 07/03/16 14:38 Expected date of discharge: 07/06/16 Attending physician: Kyle Campos Consults: 07/04/16 07:44 Consult Physician Routine Consulting Provider: Lino Fernandez Consult Reason/Comments: elevated trop Do you want consulting provider notified?: Already Contacted Primary care physician: [facility] Course: Discharge diagnosis 1. Chest pain with an acute ST elevation myocardial infarction. Status post heart catheterization showing severe triple-vessel coronary artery disease and chronic occluded LAD, right coronary artery and left circumflex. Cardiology recommending no intervention and proceed with medical therapy. 2. Hypotension after heart catheterization due to medications. Blood pressures have improved. Cardiology has cleared her for discharge. 3. Insulin-dependent diabetes mellitus 4. End-stage renal disease on hemodialysis. Had hemodialysis yesterday 5. Hyperkalemia corrected with hemodialysis 6. UTI: Urine culture pending. Patient will be sent home with Cipro 250 mg twice a day for 7 days Hospital course This is a 61-year-old female presented with the hospital with complaints of chest pain. Patient has a known history of coronary artery disease she is status post coronary artery bypass graft surgery, she also had angioplasty and stent placement in the past. Patient underwent cardiac catheterization with Dr. Rothman, patient has severe coronary artery disease however, no specific intervention on any lesion at this time. Patient did have elevated troponins on admission and was diagnosed with an acute WI. Cardiology is recommending Aggressive medical management. After the heart catheterization patient did have a episode of hypotension she did require dopamine if fluids. She is off the dopamine blood pressures have improved. Cardiology has cleared for discharge home today. She'll be following up with cardiology in the office. She is chest pain-free. She also be treated for urinary tract infection. Patient will continue with hemodialysis as scheduled for tomorrow for end-stage renal disease. Please refer to chart for any further details. Patient Condition at Discharge: Stable Plan - Discharge Summary New Discharge Prescriptions: Ciprofloxacin HCl [Cipro] 250 mg PO Q12HR #14 tablet Discharge Medication List Allopurinol [Zyloprim] 100 mg PO DAILY@0900 11/15/14 [History] Gabapentin [Neurontin] 100 mg PO BID@0900,2100 11/15/14 [History] Nitroglycerin Sl Tabs [Nitrostat] 0.4 mg SUBLINGUAL Q5M PRN #25 tab 11/19/14 [Rx ] Omeprazole [PriLOSEC] 20 mg PO BID@0900,2100 01/31/15 [History] Epoetin Adam [Epogen] 4,000 unit IV MOWEFR 03/03/15 [History] Insulin Glargine [Lantus] 30 unit SQ HS 03/03/15 [History] Loperamide [Imodium] 2 mg PO QID PRN 03/03/15 [History] Mv-Min/Vit C/Glu/Karla HCl/Hc124 [Airborne Tablet Chewable] 1 tab PO QID PRN 03/03 [History] Sertraline [Zoloft] 50 mg PO HS 03/03/15 [History] Atorvastatin [Lipitor] 40 mg PO HS 04/23/15 [History] Clopidogrel [Plavix] 75 mg PO HS 04/23/15 [History] Aspirin [Adult Low Dose Aspirin EC] 81 mg PO HS 05/06/16 [History] Calcium Acetate [PhosLo] 667 mg PO AC-TID 05/06/16 [History] Cinacalcet HCl [Sensipar] 30 mg PO HS 05/06/16 [History] Furosemide [Lasix] 80 mg PO BID 05/06/16 [History] Insulin Aspart [NovoLOG] See Protocol SQ AC-TID 05/06/16 [History] Midodrine [ProAmatine] 5 mg PO MOWEFR 05/06/16 [History] Slow-Mag 71.5mg 71.5 mg PO QAM 05/06/16 [History] Slow-Mag 71.5mg 143 mg PO HS 05/06/16 [History] Sodium Bicarbonate Tab 650 mg PO BID 05/06/16 [History] Isosorbide Mononitrate ER [Imdur] 30 mg PO QAM 06/24/16 [History] Metoprolol Tartrate [Lopressor] 25 mg PO MoTuWeThFr@0900,2100 tab 06/30/16 [Rx] Montelukast [Singulair] 10 mg PO HS #30 tab 06/30/16 [Rx] predniSONE 5 mg PO BID #14 tab 06/30/16 [Rx] Ciprofloxacin HCl [Cipro] 250 mg PO Q12HR #14 tablet 07/06/16 [Rx] Follow up Appointment(s)/Referral(s): Song Rothman MD [STAFF PHYSICIAN] - 1 Week Kyle Campos MD [Primary Care Provider] - 1 Week Activity/Diet/Wound Care/Special Instructions: Diet: cardiac, renal Activity as tolerated Discharge Disposition: HOME SELF-CARE
[2016-07-06 11:43] LABS: Glucose,Whole Blood 270 mg/dL (75-99)
[2016-07-06 11:43] LABS: Calcium 7.2 mg/dL (8.4-10.2); Potassium 5.2 mmol/L (3.5-5.1)
== END 2016-07-06 15:49 | disposition home or self-care (01) | DRG 280 ==
LOC: EC 10:41 → 6SEL 14:38
PROVIDERS: ADMIT Internal Medicine; ATTEND Internal Medicine
PROC: B2111ZZ Fluoroscopy of Multiple Coronary Arteries using Low Osmolar Contrast (ICD-10-PCS; 2016-07-05)
PROC: B21F1ZZ Fluoroscopy of Other Bypass Graft using Low Osmolar Contrast (ICD-10-PCS; 2016-07-05)
PROC: B2181ZZ Fluoroscopy of Left Internal Mammary Bypass Graft using Low Osmolar Contrast (ICD-10-PCS; 2016-07-05)
PROC: B2151ZZ Fluoroscopy of Left Heart using Low Osmolar Contrast (ICD-10-PCS; 2016-07-05)
PROC: 5A1D00Z (ICD-10-PCS; 2016-07-05)
PROC: 4A023N7 Measurement of Cardiac Sampling and Pressure, Left Heart, Percutaneous Approach (ICD-10-PCS; principal; 2016-07-05 07:30)
DX: I21.3 ST elevation (STEMI) myocardial infarction of unspecified site (principal); N18.6 End stage renal disease; E11.22 Type 2 diabetes mellitus with diabetic chronic kidney disease; I25.82 Chronic total occlusion of coronary artery; E87.5 Hyperkalemia; I13.11 Hypertensive heart and chronic kidney disease without heart failure, with stage 5 chronic kidney disease, or end stage renal disease; N39.0 Urinary tract infection, site not specified; E78.5 Hyperlipidemia, unspecified; I25.110 Atherosclerotic heart disease of native coronary artery with unstable angina pectoris; D63.1 Anemia in chronic kidney disease; I08.1 Rheumatic disorders of both mitral and tricuspid valves; D72.829 Elevated white blood cell count, unspecified; I95.2 Hypotension due to drugs; T50.905A Adverse effect of unspecified drugs, medicaments and biological substances, initial encounter; K21.9 Gastro-esophageal reflux disease without esophagitis; E07.9 Disorder of thyroid, unspecified; M10.9 Gout, unspecified; F32.9 Major depressive disorder, single episode, unspecified; G47.30 Sleep apnea, unspecified; I25.2 Old myocardial infarction; Z79.82 Long term (current) use of aspirin; Z79.4 Long term (current) use of insulin; Z83.3 Family history of diabetes mellitus; Z99.2 Dependence on renal dialysis; Z95.5 Presence of coronary angioplasty implant and graft; Z82.49 Family history of ischemic heart disease and other diseases of the circulatory system; Z95.1 Presence of aortocoronary bypass graft; Z83.49 Family history of other endocrine, nutritional and metabolic diseases; Z86.19 Personal history of other infectious and parasitic diseases; Z87.09 Personal history of other diseases of the respiratory system; Z79.02 Long term (current) use of antithrombotics/antiplatelets; Z79.899 Other long term (current) drug therapy; Z88.1 Allergy status to other antibiotic agents; Z91.041 Radiographic dye allergy status; Z91.02 Food additives allergy status; Z88.5 Allergy status to narcotic agent; Z91.013 Allergy to seafood; Z91.048 Other nonmedicinal substance allergy status; Z77.120 Contact with and (suspected) exposure to mold (toxic)
CPT/HCPCS: 36415; 71020; 78582; 80048; 80053; 80061; 81001; 82272; 82550; 82553; 83735; 83880; 84484; 85025; 85379; 85610; 85730; 87070; 87205; 90935; 93005; 93459; 94760; 96365; 96366; 96375; 99291

== ENCOUNTER → 2016-07-14 | Outpatient (CLI) | payer MEDICARE, BC ==
--- NOTE | 2016-07-14 13:13 | US ---
EXAMINATION TYPE: US venous doppler duplex LE RT DATE OF EXAM: 07/14/2016 12:47 PM COMPARISON: NONE CLINICAL HISTORY: M79.661 Pain in Rt Lower Limb. Right leg numbness or pain. Saphenous vein harvest. Patient on Plavix (heart disease) SIDE PERFORMED: Right VESSELS IMAGED: External Iliac Vein (EIV) Common Femoral Vein Deep Femoral Vein Greater Saphenous Vein * Femoral Vein Popliteal Vein Small Saphenous Vein * Proximal Calf Veins (* superficial vessels) IMPRESSION: Right Leg: NO evidence of DVT
== END | disposition home or self-care (01) ==
LOC: RADUSWWP 12:16
PROVIDERS: ATTEND Internal Medicine Interventional Cardiology
DX: M79.661 Pain in right lower leg (principal)

== ENCOUNTER 2016-08-02 06:36 | Inpatient (IN) | payer MEDICARE, BC ==
[2016-08-02] MEDS ORDERED: ASPIRIN 81 MG CHEW PO STA (07:24)
--- NOTE | 2016-08-02 07:29 | ED ---
General Adult HPI - General Chief complaint: Arrhythmia/Palpitations Stated complaint: LOW BP Time Seen by Provider: 08/02/16 07:00 Source: patient, family, RN notes reviewed Mode of arrival: wheelchair Limitations: no limitations - History of Present Illness Initial comments: This is a 61-year-old female who presents emergency Department complaining of chest pain difficulty breathing yesterday. Patient states it was a pressure sensation. Patient states the pain radiated to her neck. Patient states she was also short of breath and worsening short of breath if she ambulated. Patient states the pain was intermittent all day long yesterday she was told to come to the hospital them but she did not. Patient went to dialysis today and was having a fluttering sensation in her chest and at dialysis the patient had a low blood pressure sores into the emergency department. Patient currently states she has no shortness of breath or difficulty breathing or chest pain at this time. Patient denies any recent fever chills or cough. Patient denies headache. Patient denies lightheadedness dizziness or near syncopal episode. Patient denies any abdominal pain patient denies nausea vomiting diarrhea. Patient denies any diaphoretic episodes. - Related Data Home Medications Medication Instructions Recorded Confirmed Allopurinol [Zyloprim] 100 mg PO DAILY@0900 11/15/14 08/02/16 Gabapentin [Neurontin] 100 mg PO BID@0900,209911/15/14 08/02/16 Omeprazole [PriLOSEC] 20 mg PO BID@0900,2100 01/31/15 08/02/16 Epoetin Adam [Epogen] 4,000 unit IV MOWEFR 03/03/15 08/02/16 Insulin Glargine [Lantus] 30 unit SQ HS 03/03/15 08/02/16 Loperamide [Imodium] 2 mg PO QID PRN 03/03/15 08/02/16 Mv-Min/Vit C/Glu/Karla HCl/Hc124 1 tab PO QID PRN 03/03/15 08/02/16 [Airborne Tablet Chewable] Sertraline [Zoloft] 50 mg PO HS 03/03/15 08/02/16 Atorvastatin [Lipitor] 40 mg PO HS 04/23/15 08/02/16 Clopidogrel [Plavix] 75 mg PO HS 04/23/15 08/02/16 Aspirin [Adult Low Dose Aspirin EC] 81 mg PO HS 05/06/16 08/02/16 Calcium Acetate [PhosLo] 667 mg PO AC-TID 05/06/16 08/02/16 Cinacalcet HCl [Sensipar] 30 mg PO HS 05/06/16 08/02/16 Furosemide [Lasix] 80 mg PO BID 05/06/16 08/02/16 Insulin Aspart [NovoLOG] See Protocol SQ AC-TID 05/06/16 08/02/16 Midodrine [ProAmatine] 5 mg PO MOWEFR 05/06/16 08/02/16 Slow-Mag 71.5mg 71.5 mg PO QAM 05/06/16 08/02/16 Slow-Mag 71.5mg 143 mg PO HS 05/06/16 08/02/16 Sodium Bicarbonate Tab 650 mg PO BID 05/06/16 08/02/16 Isosorbide Mononitrate ER [Imdur] 30 mg PO QAM 06/24/16 08/02/16 Previous Rx's Medication Instructions Recorded Nitroglycerin Sl Tabs [Nitrostat] 0.4 mg SUBLINGUAL Q5M PRN #25 tab 11/19/14 Metoprolol Tartrate [Lopressor] 25 mg PO MoTuWeThFr@0900,2100 tab 06/30/16 Montelukast [Singulair] 10 mg PO HS #30 tab 06/30/16 predniSONE 5 mg PO BID #14 tab 06/30/16 Ciprofloxacin HCl [Cipro] 250 mg PO Q12HR #14 tablet 07/06/16 Allergies Allergy/AdvReac Type Severity Reaction Status Date / Time adhesive Allergy Rash/Hives Verified 08/02/16 06:43 cephalexin monohydrate Allergy Rash/Hives Verified 08/02/16 06:43 [From Keflex] hydromorphone HCl Allergy Hallucinati Verified 08/02/16 06:43 [From Dilaudid] ons iodine Allergy Rash/Hives Verified 08/02/16 06:43 shellfish derived [Shrimp] Allergy Rash/Hives Verified 08/02/16 06:43 fentanyl AdvReac Unknown Verified 08/02/16 06:43 hydrocodone bitartrate AdvReac Itching Verified 08/02/16 06:43 [From Vicodin] morphine AdvReac Hallucinati Verified 08/02/16 06:43 ons tramadol AdvReac Itching Verified 08/02/16 06:43 artifical sweetener AdvReac Unknown Uncoded 08/02/16 06:43 Review of Systems ROS Statement: Those systems with pertinent positive or pertinent negative responses have been documented in the HPI. ROS Other: All systems not noted in ROS Statement are negative. Past Medical History Past Medical History: Coronary Artery Disease (CAD), Diabetes Mellitus, Hyperlipidemia, Hypertension, Myocardial Infarction (HI), Renal Disease, Sleep Apnea/CPAP/BIPAP, Thyroid Disorder Additional Past Medical History / Comment(s): GOUT, ANEMIA-pt can't rememebr if she recieved any blood trasfusion, MILD MITRAL,TRICUSID REGURGITATION,esrd gets hemodialysis [id number], Last Myocardial Infarction Date:: 11/14/2014 History of Any Multi-Drug Resistant Organisms: None Reported Past Surgical History: Coronary Bypass/CABG, Heart Catheterization, Heart Catheterization With Stent Additional Past Surgical History / Comment(s): AV fistula, PREVIOUS STENTS TO CIRC AND LAD-HAD REOCCLUSION THEN HAD 3 VESSEL CABG Past Anesthesia/Blood Transfusion Reactions: Previous Problems w/ Anesthesia Additional Past Anesthesia/Blood Transfusion Reaction / Comment(s): POST OP DELIRIUM/AGITATION/PSYCHOSIS-RESOLVED. Date of Last Stent Placement:: 11/14/2014 Past Psychological History: Depression Smoking Status: Never smoker Past Alcohol Use History: None Reported Past Drug Use History: None Reported - Past Family History Mother Family Medical History: Diabetes Mellitus, Myocardial Infarction (HI), Thyroid Disorder Additional Family Medical History / Comment(s): CABG, gout, hypothyroid Sister(s) Family Medical History: Diabetes Mellitus, Thyroid Disorder Father Family Medical History: Diabetes Mellitus General Exam - General Exam Comments Initial Comments: GENERAL: Patient is well-developed and well-nourished. Patient is nontoxic and well- hydrated and is in no acute distress. ENT: Neck is soft and supple. No significant lymphadenopathy is noted. Oropharynx is clear. Moist mucous membranes. Neck has full range of motion without eliciting any pain. EYES: The sclera were anicteric and conjunctiva were pink and moist. Extraocular movements were intact and pupils were equal round and reactive to light. Eyelids were unremarkable. PULMONARY: Unlabored respirations. Good breath sounds bilaterally. No audible rales rhonchi or wheezing was noted. CARDIOVASCULAR: There is a regular rate and rhythm without any murmurs gallops or rubs. ABDOMEN: Soft and nontender with normal bowel sounds. No palpable organomegaly was noted. There is no palpable pulsatile mass. SKIN: Skin is clear with no lesions or rashes and otherwise unremarkable. NEUROLOGIC: Patient is alert and oriented x3. Cranial nerves II through XII are grossly intact. Motor and sensory are also intact. Normal speech, volume and content. Symmetrical smile. MUSCULOSKELETAL: Normal extremities with adequate strength and full range of motion. No lower extremity swelling or edema. No calf tenderness. LYMPHATICS: No significant lymphadenopathy is noted PSYCHIATRIC: Normal psychiatric evaluation. Normal interpersonal interactions appears functionally intact in deals appropriately with others. No signs of depression. No signs of anxiety. Limitations: no limitations Course Vital Signs 08/02/16 08/02/16 06:39 07:41 Temperature 98.1 F Pulse Rate 74 64 Respiratory 20 18 Rate Blood Pressure 90/57 102/56 O2 Sat by Pulse 100 100 Oximetry Medical Decision Making - Medical Decision Making EKG shows normal sinus rhythm at 60 bpm ID interval 154 Sheba is 112 QT interval 460 QTC is 489. Patient's EKG shows no ST segment elevation or depression or T-wave abdomen is noted. Chest x-ray shows no acute abnormality. Because the patient was having chest pain and a troponin was elevated I started the patient on heparin. I spoke with Dr. Pena agreed to admit the patient I admitted the patient and wrote admitting orders and consult cardiology I continued heparin on the floor I continued aspirin on the floor however I did not give the patient any nitroglycerin because she was borderline hypotensive - Lab Data Result diagrams: 08/02/16 07:21 08/02/16 07:21 Lab Results 08/02/16 08/02/16 08/02/16 Range/Units 06:49 07:21 07:21 WBC 11.8 H (3.8-10.6) k/uL RBC 4.14 (3.80-5.40) m/uL Hgb 12.1 (11.4-16.0) gm/dL Hct 40.6 (34.0-46.0) % MCV 98.1 (80.0-100.0) fL MCH 29.3 (25.0-35.0) pg MCHC 29.9 L (31.0-37.0) g/dL RDW 19.9 H (11.5-15.5) % Plt Count 200 (150-450) k/uL Neutrophils % 79 % Lymphocytes % 13 % Monocytes % 4 % Eosinophils % 2 % Basophils % 1 % Neutrophils # 9.4 H (1.3-7.7) k/uL Lymphocytes # 1.6 (1.0-4.8) k/uL Monocytes # 0.5 (0-1.0) k/uL Eosinophils # 0.2 (0-0.7) k/uL Basophils # 0.1 (0-0.2) k/uL Hypochromasia Marked Anisocytosis Slight Macrocytosis Moderate PT (9.0-12.0) sec INR (<1.1) APTT (22.0-30.0) sec Sodium (137-145) mmol/L Potassium (3.5-5.1) mmol/L Chloride (98-107) mmol/L Carbon Dioxide (22-30) mmol/L Anion Gap mmol/L BUN (7-17) mg/dL Creatinine (0.52-1.04) mg/dL Est GFR (MDRD) Af Amer (>60 ml/min/1.73 sqM) Est GFR (MDRD) Non-Af (>60 ml/min/1.73 sqM) Glucose (74-99) mg/dL POC Glucose (mg/dL) 126 H (75-99) mg/dL POC Glu Production Administrative Assistant ID [place], [facility] Calcium (8.4-10.2) mg/dL Magnesium (1.6-2.3) mg/dL Total Bilirubin (0.2-1.3) mg/dL AST (14-36) U/L ALT (9-52) U/L Alkaline Phosphatase (38-126) U/L Total Creatine Kinase 48 (30-135) U/L CK-MB (CK-2) 1.5 (0.0-2.4) ng/mL CK-MB (CK-2) Rel Index 3.1 Troponin I 0.940 H* (0.000-0.034) ng/mL Total Protein (6.3-8.2) g/dL Albumin (3.5-5.0) g/dL 08/02/16 08/02/16 Range/Units 07:21 07:21 WBC (3.8-10.6) k/uL RBC (3.80-5.40) m/uL Hgb (11.4-16.0) gm/dL Hct (34.0-46.0) % MCV (80.0-100.0) fL MCH (25.0-35.0) pg MCHC (31.0-37.0) g/dL RDW (11.5-15.5) % Plt Count (150-450) k/uL Neutrophils % % Lymphocytes % % Monocytes % % Eosinophils % % Basophils % % Neutrophils # (1.3-7.7) k/uL Lymphocytes # (1.0-4.8) k/uL Monocytes # (0-1.0) k/uL Eosinophils # (0-0.7) k/uL Basophils # (0-0.2) k/uL Hypochromasia Anisocytosis Macrocytosis PT 10.6 (9.0-12.0) sec INR 1.0 (<1.1) APTT 25.1 (22.0-30.0) sec Sodium 145 (137-145) mmol/L Potassium 5.1 (3.5-5.1) mmol/L Chloride 104 (98-107) mmol/L Carbon Dioxide 21 L (22-30) mmol/L Anion Gap 20 mmol/L BUN 61 H (7-17) mg/dL Creatinine 10.36 H* (0.52-1.04) mg/dL Est GFR (MDRD) Af Amer 5 (>60 ml/min/1.73 sqM) Est GFR (MDRD) Non-Af 4 (>60 ml/min/1.73 sqM) Glucose 118 H (74-99) mg/dL POC Glucose (mg/dL) (75-99) mg/dL POC Glu Production Administrative Assistant ID Calcium 8.8 (8.4-10.2) mg/dL Magnesium 2.0 (1.6-2.3) mg/dL Total Bilirubin 0.7 (0.2-1.3) mg/dL AST 32 (14-36) U/L ALT 32 (9-52) U/L Alkaline Phosphatase 249 H (38-126) U/L Total Creatine Kinase (30-135) U/L CK-MB (CK-2) (0.0-2.4) ng/mL CK-MB (CK-2) Rel Index Troponin I (0.000-0.034) ng/mL Total Protein 7.1 (6.3-8.2) g/dL Albumin 4.3 (3.5-5.0) g/dL Critical Care Time Critical Care Time: Yes Total Critical Care Time: 35 Disposition Clinical Impression: Non-STEMI (non-ST elevated myocardial infarction), Chronic renal failure Disposition: ADMITTED IP TO THIS [facility] Time of Disposition: 08:33
--- NOTE | 2016-08-02 07:40 | XR ---
EXAMINATION TYPE: XR chest 2V DATE OF EXAM: 08/02/2016 7:36 AM COMPARISON: 07/03/2016 TECHNIQUE: PA and lateral views submitted. HISTORY: Chest pain Heart is enlarged and there is a small left effusion. Postsurgical changes are noted. No pneumothora x. Underlying COPD suspected. IMPRESSION: 1. No left lower lobe infiltrate and small effusion. 2. Stable cardiomegaly
[2016-08-02 07:44] LABS: Glucose,Whole Blood 126 mg/dL (75-99)
[2016-08-02 07:47] LABS: Calcium 8.8 mg/dL (8.4-10.2); Potassium 5.1 mmol/L (3.5-5.1); Total Bilirubin 0.7 mg/dL (0.2-1.3); Total Protein 7.1 g/dL (6.3-8.2)
[2016-08-02 07:48] LABS: Anisocytosis Slight; Basophils # (A) 0.1 k/uL (0-0.2); Basophils % (A) 1 %; CH 29.4; Eosinophils # (A) 0.2 k/uL (0-0.7); Eosinophils % (A) 2 %; HCT 40.6 % (34.0-46.0); HDW 3.23; HGB 12.1 gm/dL (11.4-16.0); Hypochromasia Marked; Luc # (Auto) 0.13; Luc % (Auto) 1; Lymphocytes # (A) 1.6 k/uL (1.0-4.8); Lymphocytes % (A) 13 %; MCH 29.3 pg (25.0-35.0); MCHC 29.9 g/dL (31.0-37.0); MCV 98.1 fL (80.0-100.0); Macrocytosis Moderate; Mean Platelet Volume 7.7; Monocytes # (A) 0.5 k/uL (0-1.0); Monocytes % (A) 4 %; Neutrophils # (A) 9.4 k/uL (1.3-7.7); Neutrophils % (A) 79 %; RBC 4.14 m/uL (3.80-5.40); RDW 19.9 % (11.5-15.5); WBC 11.8 k/uL (3.8-10.6); WBC (Perox) 11.82
[2016-08-02 07:54] LABS: Partial Thromboplastin Time 25.1 sec (22.0-30.0); Prothrombin Time 10.6 sec (9.0-12.0)
[2016-08-02 08:18] LABS: Creatine Kinase MB 1.5 ng/mL (0.0-2.4)
[2016-08-02 08:21] LABS: Troponin I 0.94 ng/mL (0.000-0.034)
[2016-08-02] MEDS ORDERED: HEPARIN SODIUM,PORCINE 5,000 UNIT/ML 1 ML VIAL IV ONE (08:29)
[2016-08-02] MEDS ORDERED: NITROGLYCERIN SL TABS 0.4 MG TAB SUBLINGUAL PRN (08:34)
[2016-08-02] MEDS: HEPARIN SODIUM,PORCINE/D5W PMX 25,000 UNIT in DEXTROSE/WATER 1 500ML.BAG IV SCH (08:42)
[2016-08-02] MEDS ORDERED: SODIUM CHLORIDE 0.9% 250 ML IV ONE (08:53)
[2016-08-02] MEDS: SODIUM CHLORIDE 0.9% 1,000 ML IV SCH ×2 (13:29→23:28)
[2016-08-02] MEDS ORDERED: LOPERAMIDE 2 MG CAP PO PRN (14:26)
[2016-08-02 14:32] LABS: Creatine Kinase MB 1.5 ng/mL (0.0-2.4)
[2016-08-02 14:38] LABS: Troponin I 0.895 ng/mL (0.000-0.034)
[2016-08-02] MEDS: FUROSEMIDE 80 MG TAB PO SCH (16:22)
[2016-08-02] MEDS: INSULIN LISPRO (humaLOG) 300 UNIT/3 ML VIAL SQ SCH ×2 (17:09→22:16)
[2016-08-02] MEDS: CALCIUM ACETATE 667 MG CAP PO SCH ×2 (17:09→22:12)
--- NOTE | 2016-08-02 17:25 | P.HPIM ---
History of Present Illness H&P Date: 08/02/16 Chief Complaint: Dizziness and chest pain Patient is a 61-year-old female was known history of coronary artery disease and known history of end-stage renal disease on hemodialysis Patient states that on 08/01/2016 she was having chest pain radiating to the back she missed going to her dialysis session she tried to go to dialysis on the next day on 08/02/2016 however they were unable to do dialysis for her due to low blood pressure she was sent to emergency room she was evaluated in emergency room troponin level was slightly elevated she was started on IV heparin and was admitted to telemetry floor cardiology consultation was requested. Patient has a known history of cardiac catheterization with angioplasty and stent placement about 6 weeks ago. Past Medical History Past Medical History: Coronary Artery Disease (CAD), Diabetes Mellitus, Hyperlipidemia, Hypertension, Myocardial Infarction ([place]), Renal Disease, Sleep Apnea/CPAP/BIPAP, Thyroid Disorder Additional Past Medical History / Comment(s): MIs, IDDM type II, GOUT, ANEMIA, MITRAL,TRICUSID REGURGITATION, esrd gets hemodialysis [id number]., recent UTI , bronchitis, hypothyroid, no CPAP use. Last Myocardial Infarction Date:: 07/03/16 History of Any Multi-Drug Resistant Organisms: None Reported Past Surgical History: Coronary Bypass/CABG, Heart Catheterization, Heart Catheterization With Stent Additional Past Surgical History / Comment(s): 07/05/16 cardiac cath-tx medially, PREVIOUS STENTS TO CIRC AND LAD-HAD REOCCLUSION THEN HAD 3 VESSEL CABG, PTCAs, AV fistula R arm, colonoscopy-normal. Past Anesthesia/Blood Transfusion Reactions: Previous Problems w/ Anesthesia Additional Past Anesthesia/Blood Transfusion Reaction / Comment(s): POST OP DELIRIUM/AGITATION/PSYCHOSIS-RESOLVED. Pt states she had a problem with hypotension last time she received versed. Date of Last Stent Placement:: 11/14/2014 Past Psychological History: Depression Additional Psychological History / Comment(s): Pt lives with her spouse. She has a wheeled walker or a wheelchair she uses prn. 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 Her spouse drives. They have been 39 yrs. Smoking Status: Never smoker Past Alcohol Use History: None Reported Past Drug Use History: None Reported - Past Family History Mother Family Medical History: Diabetes Mellitus, Myocardial Infarction ([place]), Thyroid Disorder Additional Family Medical History / Comment(s): CABG, gout, hypothyroid Sister(s) Family Medical History: Diabetes Mellitus, Thyroid Disorder Father Family Medical History: Diabetes Mellitus Medications and Allergies Home Medications Medication Instructions Recorded Confirmed Type Allopurinol [Zyloprim] 100 mg PO DAILY@0900 11/15/14 08/02/16 History Gabapentin [Neurontin] 100 mg PO BID@0900,209911/15/14 08/02/16 History Omeprazole [PriLOSEC] 20 mg PO BID@0900,209901/31/15 08/02/16 History Epoetin Adam [Epogen] 4,000 unit IV MOWEFR 03/03/15 08/02/16 History Insulin Glargine [Lantus] 30 unit SQ HS 03/03/15 08/02/16 History Loperamide [Imodium] 2 mg PO QID PRN 03/03/15 08/02/16 History Mv-Min/Vit C/Glu/Karla HCl/Hc124 1 tab PO QID PRN 03/03/15 08/02/16 History [Airborne Tablet Chewable] Sertraline [Zoloft] 50 mg PO HS 03/03/15 08/02/16 History Atorvastatin [Lipitor] 40 mg PO HS 04/23/15 08/02/16 History Clopidogrel [Plavix] 75 mg PO HS 04/23/15 08/02/16 History Aspirin [Adult Low Dose Aspirin EC] 81 mg PO HS 05/06/16 08/02/16 History Calcium Acetate [PhosLo] 2,001 mg PO AC-TID 05/06/16 08/02/16 History Cinacalcet HCl [Sensipar] 30 mg PO HS 05/06/16 08/02/16 History Furosemide [Lasix] 80 mg PO BID 05/06/16 08/02/16 History Insulin Aspart [NovoLOG] See Protocol SQ AC-TID 05/06/16 08/02/16 History Midodrine [ProAmatine] 10 mg PO MOWEFR 05/06/16 08/02/16 History Slow-Mag 71.5mg 71.5 mg PO QAM 05/06/16 08/02/16 History Slow-Mag 71.5mg 143 mg PO HS 05/06/16 08/02/16 History Sodium Bicarbonate Tab 650 mg PO BID 05/06/16 08/02/16 History Isosorbide Mononitrate ER [Imdur] 30 mg PO QAM 06/24/16 08/02/16 History Calcium Acetate [Phoslo] 667 mg PO HS 08/02/16 08/02/16 History Metoprolol Tartrate [Lopressor] 25 mg PO DAILY 08/02/16 08/02/16 History Allergies Allergy/AdvReac Type Severity Reaction Status Date / Time adhesive Allergy Rash/Hives Verified 08/02/16 08:53 cephalexin monohydrate Allergy Rash/Hives Verified 08/02/16 08:53 [From Keflex] hydromorphone HCl Allergy Hallucinati Verified 08/02/16 08:53 [From Dilaudid] ons iodine Allergy Rash/Hives Verified 08/02/16 08:53 shellfish derived [Shrimp] Allergy Rash/Hives Verified 08/02/16 08:53 fentanyl AdvReac Unknown Verified 08/02/16 08:53 hydrocodone bitartrate AdvReac Itching Verified 08/02/16 08:53 [From Vicodin] midazolam [From Versed] AdvReac Unknown Verified 08/02/16 10:24 morphine AdvReac Hallucinati Verified 08/02/16 08:53 ons tramadol AdvReac Itching Verified 08/02/16 08:53 artifical sweetener AdvReac Unknown Uncoded 08/02/16 06:43 Physical Exam Vitals: Vital Signs Temp Pulse Pulse Resp BP BP Pulse Ox 08/02/16 16:00 98.0 F 64 16 86/50 95 08/02/16 13:39 98.2 F 60 16 77/45 96 08/02/16 12:15 54 L 18 86/54 100 08/02/16 10:10 62 18 101/55 100 08/02/16 09:29 66 18 104/52 100 08/02/16 08:50 62 18 78/45 99 Intake and Output 08/02/16 08/02/16 08/02/16 06:59 14:59 22:59 Intake Total 110.058 Balance 110.058 Intake: Intake, IV Titration 110.058 Amount Heparin Sodium,Porcine/ 110.058 D5w Pmx 25,000 unit In Dextrose/Water 1 500ml. bag @ 10.2 UNITS/KG/HR 19 .95 mls/hr IV .Q24H [facility] Rx#:[id number] Other: Weight 97.8 kg 97.8 kg Patient Weight 08/03/16 06:59 Weight 97.8 kg In general patient is alert and oriented 3 in no apparent distress HEENT head normocephalic and atraumatic Neck is supple no JVD no goiter no lymphadenopathy Chest is clear to auscultation no wheezing Cardiac exam reveals regular heart sounds no gallops no murmurs Abdomen is soft nontender no organomegaly Extremity exam reveals no edema no cyanosis or clubbing Results CBC & Chem 7: 08/02/16 07:21 08/02/16 07:21 Labs: Abnormal Lab Results - Last 24 Hours (Table) 08/02/16 08/02/16 Range/Units 13:16 13:23 APTT 40.3 H (22.0-30.0) sec Troponin I 0.895 H* (0.000-0.034) ng/mL Thrombosis Risk Factor Assmnt - Choose All That Apply Any of the Below Risk Factors Present?: Yes Each Factor Represents 1 point: Acute [place], Age 41-60 years, Obesity (BMI >25) Other Risk Factors: No Other congenital or acquired thrombophilia - If yes, enter type in comment: No Thrombosis Risk Factor Assessment Total Risk Factor Score: 3 Thrombosis Risk Factor Assessment Level: Moderate Risk Assessment and Plan Plan: #1 episode of chest pain radiating to the back currently patient is chest pain- free she is maintained on IV heparin troponin level is elevated however this may be related to renal failure awaiting cardiology input. #2 underlying history of coronary artery disease with recent history of angioplasty and stent placement #3 underlying history of end-stage renal disease on hemodialysis nephrology consultation was requested #4 insulin-dependent diabetes mellitus #5 hypertension at this time blood pressure is low will adjust medication accordingly #6 hyperlipidemia At this time will await echocardiogram results will recheck labs in a.m. Will follow closely
[2016-08-02 18:44] LABS: Hemoglobin A1C 7.2 % (4.2-6.1)
[2016-08-02 20:33] LABS: Glucose,Whole Blood 232 mg/dL (75-99)
[2016-08-02] MEDS ORDERED: METOPROLOL TARTRATE 25 MG TAB PO SCH (21:00)
[2016-08-02 21:18] LABS: Creatine Kinase MB 1.4 ng/mL (0.0-2.4)
[2016-08-02 21:25] LABS: Troponin I 0.711 ng/mL (0.000-0.034)
[2016-08-02] MEDS ORDERED: HEPARIN SODIUM,PORCINE 5,000 UNIT/ML 1 ML VIAL IV PRN (21:54)
[2016-08-02] MEDS: PANTOPRAZOLE 40 MG TABLET PO SCH (22:13)
[2016-08-02] MEDS: CLOPIDOGREL 75 MG TAB PO SCH (22:13)
[2016-08-02] MEDS: CINACALCET 30 MG TAB PO SCH (22:14)
[2016-08-02] MEDS: SODIUM BICARBONATE TAB 650 MG TAB PO SCH (22:14)
[2016-08-02] MEDS: MONTELUKAST 10 MG TAB PO SCH (22:14)
[2016-08-02] MEDS: ATORVASTATIN 40 MG TAB PO SCH (22:14)
[2016-08-02] MEDS: GABAPENTIN 100 MG CAP PO SCH (22:15)
[2016-08-02] MEDS: SERTRALINE 50 MG TAB PO SCH (22:15)
[2016-08-03] MEDS: ACETAMINOPHEN TAB 325 MG TAB PO PRN ×2 (03:19→20:00)
[2016-08-03 04:17] LABS: Anisocytosis Moderate; Basophils % (A) 1 %; CH 29.7; CHCM 29.1; Eosinophils # (A) 0.1 k/uL (0-0.7); Eosinophils % (A) 2 %; HCT 37.8 % (34.0-46.0); HDW 2.93; Hypochromasia Marked; Luc # (Auto) 0.18; Luc % (Auto) 2; Lymphocytes # (A) 1.4 k/uL (1.0-4.8); Lymphocytes % (A) 18 %; MCH 29.8 pg (25.0-35.0); MCHC 29.1 g/dL (31.0-37.0); MCV 102.5 fL (80.0-100.0); Macrocytosis Moderate; Mean Platelet Volume 8.5; Monocytes # (A) 0.2 k/uL (0-1.0); Monocytes % (A) 3 %; Neutrophils # (A) 5.6 k/uL (1.3-7.7); Neutrophils % (A) 74 %; RBC 3.69 m/uL (3.80-5.40); RDW 20.1 % (11.5-15.5); WBC 7.6 k/uL (3.8-10.6); WBC (Perox) 7.81
[2016-08-03] MEDS: HEPARIN SODIUM,PORCINE/D5W PMX 25,000 UNIT in DEXTROSE/WATER 1 500ML.BAG IV SCH ×2 (04:54→21:48)
[2016-08-03 05:01] LABS: Calcium 7.8 mg/dL (8.4-10.2); Total Bilirubin 0.6 mg/dL (0.2-1.3); Total Protein 5.8 g/dL (6.3-8.2)
[2016-08-03 05:05] LABS: Potassium 5.7 mmol/L (3.5-5.1)
[2016-08-03 05:32] LABS: Glucose,Whole Blood 142 mg/dL (75-99)
[2016-08-03] MEDS: CALCIUM ACETATE 667 MG CAP PO SCH ×4 (06:26→19:57)
[2016-08-03] MEDS: INSULIN LISPRO (humaLOG) 300 UNIT/3 ML VIAL SQ SCH ×4 (06:27→21:28)
[2016-08-03] MEDS: SODIUM BICARBONATE TAB 650 MG TAB PO SCH ×2 (07:59→21:27)
[2016-08-03] MEDS: FUROSEMIDE 80 MG TAB PO SCH ×2 (07:59→17:07)
[2016-08-03] MEDS: ALLOPURINOL 100 MG TAB PO SCH (08:00)
[2016-08-03] MEDS: ASPIRIN 325 MG TAB PO SCH (08:00)
[2016-08-03] MEDS: GABAPENTIN 100 MG CAP PO SCH ×2 (08:00→19:57)
[2016-08-03] MEDS: PANTOPRAZOLE 40 MG TABLET PO SCH ×2 (08:00→19:58)
[2016-08-03] MEDS: SODIUM CHLORIDE 0.9% 1,000 ML IV SCH ×2 (08:44→12:13)
[2016-08-03] MEDS ORDERED: ISOSORBIDE MONONITRATE ER 30 MG TAB.ER.24H PO SCH (09:00)
--- NOTE | 2016-08-03 09:38 | P.NPCON ---
History of Present Illness - Reason for Consult end stage renal disease - History of Present Illness Reason for consultation: End-stage renal disease History of present illness: Patient is a 61-year-old female seen in renal consultation for end- stage renal disease. She is maintained on hemodialysis on a Sunday schedule. Patient presented to the hospital due to hypotension and fluttering in her chest. She went to hemodialysis on Sunday and Sunday and did not receive a treatment as an outpatient due to hypotension. Her last hemodialysis treatment was on Sunday. Patient admits to back pain as well. Her appetite has been fair. Denies any fever or chills. Denies cough. Denies any vomiting. Does have intermittent diarrhea. She does have history of coronary artery disease status post CABG as well as stent placement. She is currently maintained on a heparin drip. Denies any active chest pain or shortness of breath. Vital signs are stable. General: The patient appeared well nourished and normally developed. HEENT: Head exam is unremarkable. Neck is without jugular venous distension. LUNGS: Lungs are clear to auscultation and percussion. Breath sounds decreased. HEART: Rate and Rhythm are regular. First and second heart sounds normal. No murmurs, rubs or gallops. ABDOMEN: Abdominal exam reveals normal bowel sounds. Non-tender and non- distended. No evidence of peritonitis. EXTREMITITES: No clubbing, cyanosis, or edema. Past Medical History Past Medical History: Coronary Artery Disease (CAD), Diabetes Mellitus, Hyperlipidemia, Hypertension, Myocardial Infarction ([place]), Renal Disease, Sleep Apnea/CPAP/BIPAP, Thyroid Disorder Additional Past Medical History / Comment(s): MIs, IDDM type II, GOUT, ANEMIA, MITRAL,TRICUSID REGURGITATION, esrd gets hemodialysis [id number]., recent UTI , bronchitis, hypothyroid, no CPAP use. Last Myocardial Infarction Date:: 07/03/16 History of Any Multi-Drug Resistant Organisms: None Reported Past Surgical History: Coronary Bypass/CABG, Heart Catheterization, Heart Catheterization With Stent Additional Past Surgical History / Comment(s): 07/05/16 cardiac cath-tx medially, PREVIOUS STENTS TO CIRC AND LAD-HAD REOCCLUSION THEN HAD 3 VESSEL CABG, PTCAs, AV fistula R arm, colonoscopy-normal. Past Anesthesia/Blood Transfusion Reactions: Previous Problems w/ Anesthesia Additional Past Anesthesia/Blood Transfusion Reaction / Comment(s): POST OP DELIRIUM/AGITATION/PSYCHOSIS-RESOLVED. Pt states she had a problem with hypotension last time she received versed. Date of Last Stent Placement:: 11/14/2014 Past Psychological History: Depression Additional Psychological History / Comment(s): Pt lives with her spouse. She has a wheeled walker or a wheelchair she uses prn. 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 Her spouse drives. They have been 39 yrs. Smoking Status: Never smoker Past Alcohol Use History: None Reported Past Drug Use History: None Reported - Past Family History Mother Family Medical History: Diabetes Mellitus, Myocardial Infarction ([place]), Thyroid Disorder Additional Family Medical History / Comment(s): CABG, gout, hypothyroid Sister(s) Family Medical History: Diabetes Mellitus, Thyroid Disorder Father Family Medical History: Diabetes Mellitus Medications and Allergies Home Medications Medication Instructions Recorded Confirmed Type Allopurinol [Zyloprim] 100 mg PO DAILY@0900 11/15/14 08/02/16 History Gabapentin [Neurontin] 100 mg PO BID@0900,2100 11/15/14 08/02/16 History Omeprazole [PriLOSEC] 20 mg PO BID@0900,2100 01/31/15 08/02/16 History Epoetin Adam [Epogen] 4,000 unit IV MOWEFR 03/03/15 08/02/16 History Insulin Glargine [Lantus] 30 unit SQ HS 03/03/15 08/02/16 History Loperamide [Imodium] 2 mg PO QID PRN 03/03/15 08/02/16 History Mv-Min/Vit C/Glu/Karla HCl/Hc124 1 tab PO QID PRN 03/03/15 08/02/16 History [Airborne Tablet Chewable] Sertraline [Zoloft] 50 mg PO HS 03/03/15 08/02/16 History Atorvastatin [Lipitor] 40 mg PO HS 04/23/15 08/02/16 History Clopidogrel [Plavix] 75 mg PO HS 04/23/15 08/02/16 History Aspirin [Adult Low Dose Aspirin EC] 81 mg PO HS 05/06/16 08/02/16 History Calcium Acetate [PhosLo] 2,001 mg PO AC-TID 05/06/16 08/02/16 History Cinacalcet HCl [Sensipar] 30 mg PO HS 05/06/16 08/02/16 History Furosemide [Lasix] 80 mg PO BID 05/06/16 08/02/16 History Insulin Aspart [NovoLOG] See Protocol SQ AC-TID 05/06/16 08/02/16 History Midodrine [ProAmatine] 10 mg PO MOWEFR 05/06/16 08/02/16 History Slow-Mag 71.5mg 71.5 mg PO QAM 05/06/16 08/02/16 History Slow-Mag 71.5mg 143 mg PO HS 05/06/16 08/02/16 History Sodium Bicarbonate Tab 650 mg PO BID 05/06/16 08/02/16 History Isosorbide Mononitrate ER [Imdur] 30 mg PO QAM 06/24/16 08/02/16 History Calcium Acetate [Phoslo] 667 mg PO HS 08/02/16 08/02/16 History Metoprolol Tartrate [Lopressor] 25 mg PO DAILY 08/02/16 08/02/16 History Allergies Allergy/AdvReac Type Severity Reaction Status Date / Time adhesive Allergy Rash/Hives Verified 08/02/16 08:53 cephalexin monohydrate Allergy Rash/Hives Verified 08/02/16 08:53 [From Keflex] hydromorphone HCl Allergy Hallucinati Verified 08/02/16 08:53 [From Dilaudid] ons iodine Allergy Rash/Hives Verified 08/02/16 08:53 shellfish derived [Shrimp] Allergy Rash/Hives Verified 08/02/16 08:53 fentanyl AdvReac Unknown Verified 08/02/16 08:53 hydrocodone bitartrate AdvReac Itching Verified 08/02/16 08:53 [From Vicodin] midazolam [From Versed] AdvReac Unknown Verified 08/02/16 10:24 morphine AdvReac Hallucinati Verified 08/02/16 08:53 ons tramadol AdvReac Itching Verified 08/02/16 08:53 artifical sweetener AdvReac Unknown Uncoded 08/02/16 06:43 Physical Exam Vitals: Vital Signs Temp Pulse Pulse Resp BP BP Pulse Ox 08/03/16 08:00 97.7 F 77 18 96/56 97 08/03/16 03:28 96.5 F L 72 16 104/53 95 08/03/16 00:00 98.0 F 78 16 112/55 95 08/02/16 20:00 97.5 F L 73 16 106/59 100 08/02/16 16:00 98.0 F 64 16 86/50 95 08/02/16 13:39 98.2 F 60 16 77/45 96 08/02/16 12:15 54 L 18 86/54 100 08/02/16 10:10 62 18 101/55 100 Intake and Output 08/02/16 08/03/16 08/03/16 22:59 06:59 14:59 Intake Total 193.628 788.754 Output Total 50 Balance 193.628 738.754 Intake: IV 600 Sodium Chloride 0.9% 1, 600 000 ml @ 100 mls/hr IV . Q10H [facility] Rx#:[id number] Intake, IV Titration 193.628 188.754 Amount Heparin Sodium,Porcine/ 193.628 188.754 D5w Pmx 25,000 unit In Dextrose/Water 1 500ml. bag @ 10.2 UNITS/KG/HR 19 .95 mls/hr IV .Q24H [facility] Rx#:[id number] Output: Urine 50 Other: Voiding Method Toilet Toilet # Voids 1 Weight 97.8 kg 97.9 kg Results - Lab Results Most recent lab results Calcium 7.8 mg/dL (8.4-10.2) L 08/03/16 04:08 Magnesium 2.0 mg/dL (1.6-2.3) 08/02/16 07:21 08/03/16 04:08 08/03/16 04:08 Assessment and Plan Plan: Assessment: #1. End-stage renal disease maintained on hemodialysis on a Sunday schedule. #2. History of coronary artery disease status post CABG and stent placement. #3. Hypotension. Improved. #4. Chronic kidney disease mineral bone disease. Plan: Hemodialysis today and again tomorrow with goal 1 L ultrafiltration. Decrease rate of IV fluids to 40 mL an hour. Increase Midodrine to 10 mg 3 times daily. Check phosphorus level. Maintain PhosLo with meals. Maintain oral sodium bicarbonate supplementation. Await cardiology recommendations. Thank you for the consultation. I will continue to follow the patient with you during her hospital stay.
[2016-08-03] MEDS: FOLIC ACID-VIT B COMPLEX-VIT C 1 CAP PO SCH (10:00)
--- NOTE | 2016-08-03 10:23 | P.PN ---
Subjective patient presented to the hospital with complaints of chest pain as well as having hypotension during her dialysis treatments. She is found have elevated troponins. Cardiology has been consulted awaiting their evaluation. She is scheduled for hemodialysis today and tomorrow. She is no longer having chest pain. Denies any nausea or vomiting. Denies any bowel movement changes or urinary symptoms. Objective - Vital Signs Vital signs: Vital Signs Temp 97.7 F 08/03/16 08:00 Pulse 77 08/03/16 08:00 Resp 18 08/03/16 08:00 BP 96/56 08/03/16 08:00 Pulse Ox 97 08/03/16 08:00 Intake & Output 08/02/16 08/03/16 08/03/16 18:59 06:59 18:59 Intake Total 110.058 982.382 Output Total 50 Balance 110.058 932.382 Weight 97.8 kg 97.9 kg Intake: IV 600 Sodium Chloride 0.9% 1, 600 000 ml @ 100 mls/hr IV . Q10H [facility] Rx#:[id number] Intake, IV Titration 110.058 382.382 Amount Heparin Sodium,Porcine/ 110.058 382.382 D5w Pmx 25,000 unit In Dextrose/Water 1 500ml. bag @ 10.2 UNITS/KG/HR 19 .95 mls/hr IV .Q24H [facility] Rx#:[id number] Output: Urine 50 Other: Voiding Method Toilet Toilet # Voids 1 - Exam Head normocephalic Neck supple Lungs clear to auscultation bilaterally no wheezing or crackles Heart regular rate and rhythm S1-S2, no rub or gallop Abdomen is soft nontender nondistended positive bowel sounds no hepatosplenomegaly Extremities no edema Neuro alert and orientated to 3 - Labs CBC & Chem 7: 08/03/16 04:08 08/03/16 04:08 Labs: Abnormal Lab Results - Last 24 Hours (Table) 08/02/16 08/02/16 08/02/16 Range/Units 13:16 13:23 20:32 RBC (3.80-5.40) m/uL Hgb (11.4-16.0) gm/dL MCV (80.0-100.0) fL MCHC (31.0-37.0) g/dL RDW (11.5-15.5) % Plt Count (150-450) k/uL APTT 40.3 H (22.0-30.0) sec Potassium (3.5-5.1) mmol/L Chloride (98-107) mmol/L Carbon Dioxide (22-30) mmol/L BUN (7-17) mg/dL Creatinine (0.52-1.04) mg/dL Glucose (74-99) mg/dL POC Glucose (mg/dL) 232 H (75-99) mg/dL Calcium (8.4-10.2) mg/dL Alkaline Phosphatase (38-126) U/L Troponin I 0.895 H* (0.000-0.034) ng/mL Total Protein (6.3-8.2) g/dL Albumin (3.5-5.0) g/dL Triglycerides (<150) mg/dL HDL Cholesterol (40-60) mg/dL 08/02/16 08/03/16 08/03/16 Range/Units 20:33 04:08 04:08 RBC 3.69 L (3.80-5.40) m/uL Hgb 11.0 L (11.4-16.0) gm/dL MCV 102.5 H (80.0-100.0) fL MCHC 29.1 L (31.0-37.0) g/dL RDW 20.1 H (11.5-15.5) % Plt Count 116 L (150-450) k/uL APTT (22.0-30.0) sec Potassium 5.7 H (3.5-5.1) mmol/L Chloride 110 H (98-107) mmol/L Carbon Dioxide 14 L (22-30) mmol/L BUN 68 H (7-17) mg/dL Creatinine 10.81 H* (0.52-1.04) mg/dL Glucose 155 H (74-99) mg/dL POC Glucose (mg/dL) (75-99) mg/dL Calcium 7.8 L (8.4-10.2) mg/dL Alkaline Phosphatase 201 H (38-126) U/L Troponin I 0.711 H* (0.000-0.034) ng/mL Total Protein 5.8 L (6.3-8.2) g/dL Albumin 3.4 L (3.5-5.0) g/dL Triglycerides 161 H (<150) mg/dL HDL Cholesterol 39 L (40-60) mg/dL 08/03/16 08/03/16 Range/Units 04:08 05:30 RBC (3.80-5.40) m/uL Hgb (11.4-16.0) gm/dL MCV (80.0-100.0) fL MCHC (31.0-37.0) g/dL RDW (11.5-15.5) % Plt Count (150-450) k/uL APTT 58.2 H (22.0-30.0) sec Potassium (3.5-5.1) mmol/L Chloride (98-107) mmol/L Carbon Dioxide (22-30) mmol/L BUN (7-17) mg/dL Creatinine (0.52-1.04) mg/dL Glucose (74-99) mg/dL POC Glucose (mg/dL) 142 H (75-99) mg/dL Calcium (8.4-10.2) mg/dL Alkaline Phosphatase (38-126) U/L Troponin I (0.000-0.034) ng/mL Total Protein (6.3-8.2) g/dL Albumin (3.5-5.0) g/dL Triglycerides (<150) mg/dL HDL Cholesterol (40-60) mg/dL Assessment and Plan Plan: #1 episode of chest pain radiating to the back currently patient is chest pain- free she is maintained on IV heparin troponin level is elevated however this may be related to renal failure awaiting cardiology input. #2 underlying history of coronary artery disease with recent history of angioplasty and stent placement in April 2016 #3 underlying history of end-stage renal disease on hemodialysis . Evaluated by nephrology. Patient scheduled for hemodialysis today and tomorrow #4 insulin-dependent diabetes mellitus. Continue with sliding scale coverage. Resume her Lantus tonight. Hemoglobin A1c is 7.2 #5 hypertension at this time blood pressure is low will adjust medication accordingly #6 hyperlipidemia #7 hyperkalemia: Should be corrected with dialysis. Continue to monitor.
--- NOTE | 2016-08-03 10:31 | ECHOF ---
Referral Reason:hypotention MEASUREMENTS -------- HEIGHT: 165.1 cm WEIGHT: 97.5 kg BP: 101/55 IVSd: 1.3 cm (0.6 - 1.1) LVIDd: 4.6 cm (3.9 - 5.3) LVPWd: 1.2 cm (0.6 - 1.1) IVSs: 1.8 cm LVIDs: 4.3 cm LVPWs: 1.2 cm LAESV Index (A-L): 30.29 ml/m Ao Diam: 2.6 cm (2.0 - 3.7) AV Cusp: 1.6 cm (1.5 - 2.6) LA Diam: 2.3 cm (2.7 - 3.8) MV EXCURSION: 15.965 mm (> 18.000) MV EF SLOPE: 44 mm/s (70 - 150) EPSS: 1.1 cm MV E Jass: 1.34 m/s MV DecT: 281 ms MV A Jass: 0.86 m/s MV E/A Ratio: 1.56 RAP: 5.00 mmHg RVSP: 32.18 mmHg FINDINGS -------- Sinus rhythm. This was a technically good study. There is mild concentric left ventricular hypertrophy. Overall left ventricular systolic function is mild-moderately impaired with, an EF between 40 - 45 %. Mid to basal inferiorlateral is hypokinetic The right ventricle is normal in size and function. LA is midly dilated 29-33ml/m2. The right atrium is normal in size. Aortic valve is trileaflet and is mildly thickened. The mitral valve leaflets are mildly thickened. Mild mitral annular calcification present. Severe mitral regurgitation is present. Mild tricuspid regurgitation present. The right ventricular systolic pressure, as measured by Doppler, is 32.18mmHg. Pulmonic valve appears structurally normal. The aortic root size is normal. The pericardium is normal. CONCLUSIONS -------- 1. Sinus rhythm. 2. The mitral valve leaflets are mildly thickened. 3. Mild mitral annular calcification present. 4. Severe mitral regurgitation is present. 5. Mild tricuspid regurgitation present. 6. The right ventricular systolic pressure, as measured by Doppler, is 32.18mmHg. 7. Pulmonic valve appears structurally normal. 8. The aortic root size is normal. 9. The pericardium is normal. 10. This was a technically good study. 11. There is mild concentric left ventricular hypertrophy. 12. Overall left ventricular systolic function is mild-moderately impaired with, an EF between 40 - 45 %. 13. Mid to basal inferiorlateral is hypokinetic 14. The right ventricle is normal in size and function. 15. LA is midly dilated 29-33ml/m2. 16. The right atrium is normal in size. 17. Aortic valve is trileaflet and is mildly thickened. [employer] CH[employer]ER: Za Roberts RDCS
[2016-08-03 11:54] LABS: Glucose,Whole Blood 236 mg/dL (75-99)
[2016-08-03] MEDS: MIDODRINE 5 MG TAB PO SCH ×2 (12:13→17:07)
[2016-08-03] MEDS ORDERED: GELATIN SPONGE,ABSORB (SMALL) 1 EACH SPONGE ONE (15:00)
[2016-08-03 16:51] LABS: Glucose,Whole Blood 146 mg/dL (75-99)
--- NOTE | 2016-08-03 17:25 | PN ---
This patient was admitted with low blood pressure. She is doing well; denies any dizziness or lightheadedness. Denies any chest pain. Patient's blood pressure now is 104/57 mmHg. Heart rate is 74 per minute. First and second heart sounds are normal. Lungs are clinically clear to auscultation and percussion. Will continue the current medications.
[2016-08-03] MEDS: ATORVASTATIN 40 MG TAB PO SCH (19:57)
[2016-08-03] MEDS: CLOPIDOGREL 75 MG TAB PO SCH (19:57)
[2016-08-03] MEDS: CINACALCET 30 MG TAB PO SCH (19:57)
[2016-08-03] MEDS: SERTRALINE 50 MG TAB PO SCH (19:58)
[2016-08-03] MEDS: MONTELUKAST 10 MG TAB PO SCH (19:58)
[2016-08-03 20:35] LABS: Glucose,Whole Blood 146 mg/dL (75-99)
[2016-08-03] MEDS: INSULIN GLARGINE 100 UNIT/ML 10 ML VIAL SQ SCH (21:32)
[2016-08-04] MEDS: ONDANSETRON 4 MG/2 ML VIAL IVP PRN ×2 (00:13→20:04)
[2016-08-04 06:22] LABS: Glucose,Whole Blood 161 mg/dL (75-99)
[2016-08-04 06:38] LABS: Calcium 7.5 mg/dL (8.4-10.2); Potassium 4.5 mmol/L (3.5-5.1); Total Bilirubin 0.6 mg/dL (0.2-1.3); Total Protein 5.8 g/dL (6.3-8.2)
[2016-08-04] MEDS: MIDODRINE 5 MG TAB PO SCH ×4 (06:38→17:03)
[2016-08-04] MEDS: ACETAMINOPHEN TAB 325 MG TAB PO PRN ×2 (06:39→21:59)
[2016-08-04] MEDS: INSULIN LISPRO (humaLOG) 300 UNIT/3 ML VIAL SQ SCH ×4 (06:44→22:00)
[2016-08-04] MEDS: CALCIUM ACETATE 667 MG CAP PO SCH ×4 (06:44→23:38)
[2016-08-04 07:02] LABS: Anisocytosis Moderate; Basophils % (A) 0 %; CH 30.3; CHCM 30.9; Eosinophils # (A) 0.2 k/uL (0-0.7); Eosinophils % (A) 2 %; HGB 10.5 gm/dL (11.4-16.0); Hypochromasia Moderate; Luc % (Auto) 1; Lymphocytes # (A) 1.1 k/uL (1.0-4.8); Lymphocytes % (A) 13 %; MCH 30.3 pg (25.0-35.0); MCHC 30.7 g/dL (31.0-37.0); MCV 98.6 fL (80.0-100.0); Macrocytosis Moderate; Mean Platelet Volume 8.8; Monocytes # (A) 0.4 k/uL (0-1.0); Monocytes % (A) 4 %; Neutrophils # (A) 6.8 k/uL (1.3-7.7); Neutrophils % (A) 79 %; RBC 3.45 m/uL (3.80-5.40); RDW 20.3 % (11.5-15.5); WBC 8.6 k/uL (3.8-10.6); WBC (Perox) 8.44
--- NOTE | 2016-08-04 08:11 | P.PN ---
Subjective Patient is seen in follow-up for end-stage renal disease. She is maintained on hemodialysis on a Sunday schedule. Patient presented with hypotension and chest discomfort. This morning she is not feeling too well. States she developed a productive cough with yellow sputum overnight. His improved this morning was still somewhat nauseous. She did have vomiting last night as well. Denies diarrhea. No chest pain or shortness of breath. Vital signs are stable. General: The patient appeared well nourished and normally developed. HEENT: Head exam is unremarkable. Neck is without jugular venous distension. LUNGS: Lungs are clear to auscultation and percussion. Breath sounds decreased. HEART: Rate and Rhythm are regular. First and second heart sounds normal. No murmurs, rubs or gallops. ABDOMEN: Abdominal exam reveals normal bowel sounds. Non-tender and non- distended. No evidence of peritonitis. EXTREMITITES: No clubbing, cyanosis, or edema. Objective - Vital Signs Vital signs: Vital Signs Temp 98.7 F 08/04/16 04:00 Pulse 83 08/04/16 04:00 Resp 16 08/04/16 04:00 BP 110/53 08/04/16 04:00 Pulse Ox 92 L 08/04/16 04:00 Intake & Output 08/03/16 08/04/16 08/04/16 18:59 06:59 18:59 Intake Total 860 495.846 Output Total 125 Balance 735 495.846 Weight 97.9 kg 98.8 kg Intake: IV 200 Sodium Chloride 0.9% 1, 200 000 ml @ 40 mls/hr IV . Q24H [facility] Rx#:[id number] Intake, IV Titration 240 495.846 Amount Heparin Sodium,Porcine/ 495.846 D5w Pmx 25,000 unit In Dextrose/Water 1 500ml. bag @ 10.2 UNITS/KG/HR 19 .95 mls/hr IV .Q24H [facility] Rx#:[id number] Sodium Chloride 0.9% 1, 240 000 ml @ 40 mls/hr IV . Q24H [facility] Rx#:[id number] Oral 420 Output: Urine 125 Other: Voiding Method Toilet Toilet Bedside Commode # Voids 1 1 - Labs CBC & Chem 7: 08/04/16 05:32 03/17/17 05:32 Labs: Abnormal Lab Results - Last 24 Hours (Table) 08/03/16 08/03/16 08/03/16 Range/Units 04:08 11:50 16:42 RBC (3.80-5.40) m/uL Hgb (11.4-16.0) gm/dL MCHC (31.0-37.0) g/dL RDW (11.5-15.5) % Plt Count (150-450) k/uL APTT (22.0-30.0) sec Sodium (137-145) mmol/L Carbon Dioxide (22-30) mmol/L BUN (7-17) mg/dL Creatinine (0.52-1.04) mg/dL Glucose (74-99) mg/dL POC Glucose (mg/dL) 236 H 146 H (75-99) mg/dL Calcium (8.4-10.2) mg/dL Phosphorus 7.2 H (2.5-4.5) mg/dL Alkaline Phosphatase (38-126) U/L Total Protein (6.3-8.2) g/dL Albumin (3.5-5.0) g/dL 08/03/16 08/04/16 08/04/16 Range/Units 20:24 05:32 05:32 RBC 3.45 L (3.80-5.40) m/uL Hgb 10.5 L (11.4-16.0) gm/dL MCHC 30.7 L (31.0-37.0) g/dL RDW 20.3 H (11.5-15.5) % Plt Count 124 L (150-450) k/uL APTT (22.0-30.0) sec Sodium 135 L (137-145) mmol/L Carbon Dioxide 20 L (22-30) mmol/L BUN 34 H (7-17) mg/dL Creatinine 6.52 H* (0.52-1.04) mg/dL Glucose 176 H (74-99) mg/dL POC Glucose (mg/dL) 146 H (75-99) mg/dL Calcium 7.5 L (8.4-10.2) mg/dL Phosphorus (2.5-4.5) mg/dL Alkaline Phosphatase 196 H (38-126) U/L Total Protein 5.8 L (6.3-8.2) g/dL Albumin 3.4 L (3.5-5.0) g/dL 08/04/16 08/04/16 Range/Units 05:32 06:16 RBC (3.80-5.40) m/uL Hgb (11.4-16.0) gm/dL MCHC (31.0-37.0) g/dL RDW (11.5-15.5) % Plt Count (150-450) k/uL APTT 49.8 H (22.0-30.0) sec Sodium (137-145) mmol/L Carbon Dioxide (22-30) mmol/L BUN (7-17) mg/dL Creatinine (0.52-1.04) mg/dL Glucose (74-99) mg/dL POC Glucose (mg/dL) 161 H (75-99) mg/dL Calcium (8.4-10.2) mg/dL Phosphorus (2.5-4.5) mg/dL Alkaline Phosphatase (38-126) U/L Total Protein (6.3-8.2) g/dL Albumin (3.5-5.0) g/dL Assessment and Plan Plan: Assessment: #1. End-stage renal disease maintained on hemodialysis on a Sunday schedule. #2. History of coronary artery disease status post CABG and stent placement. #3. Hypotension. Improved. #4. Chronic kidney disease mineral bone disease. Plan: Hemodialysis today with goal 1 L ultrafiltration. Continue IV fluids at 40 mL an hour until oral intake improves. Maintain Midodrine to 10 mg 3 times daily. Maintain PhosLo with meals. Maintain oral sodium bicarbonate supplementation. Check chest x-ray. Cardiology following. No plans for any intervention at this time.
[2016-08-04] MEDS: ASPIRIN 325 MG TAB PO SCH (08:38)
[2016-08-04] MEDS: FOLIC ACID-VIT B COMPLEX-VIT C 1 CAP PO SCH (08:38)
[2016-08-04] MEDS: GABAPENTIN 100 MG CAP PO SCH ×2 (08:38→23:38)
[2016-08-04] MEDS: FUROSEMIDE 80 MG TAB PO SCH ×2 (08:38→16:55)
[2016-08-04] MEDS: PANTOPRAZOLE 40 MG TABLET PO SCH ×2 (08:39→23:34)
[2016-08-04] MEDS: ALLOPURINOL 100 MG TAB PO SCH (08:39)
[2016-08-04] MEDS: SODIUM BICARBONATE TAB 650 MG TAB PO SCH ×2 (08:39→23:39)
--- NOTE | 2016-08-04 09:24 | XR ---
EXAMINATION TYPE: XR chest 2V DATE OF EXAM: 08/04/2016 8:55 AM HISTORY: CHEST PAIN/SOB. REFERENCE: Previous study dated 08/02/2016. FINDINGS: There has been a midline sternotomy. Heart size is upper limits of normal. There is a small left effusion and a smaller right-sided effusi on. There is mild atelectasis at the left lung base, unchanged from previous. IMPRESSION: 1. BORDERLINE CARDIOMEGALY. 2 LEFT BASILAR ATELECTASIS. 3. BILATERAL EFFUSIONS, GREATER ON THE LEFT THAN THE RIGHT.
--- NOTE | 2016-08-04 11:01 | P.PN ---
Subjective patient presented to the hospital with complaints of chest pain as well as having hypotension during her dialysis treatments. patient had hemodialysis yesterday. She is scheduled for hemodialysis again today. She is complaining of vomiting with diarrhea that started last night. She's had about 3 episodes. Also complaining of some cough. Chest x-ray showed cardiomegaly with left basilar atelectasis and small bilateral effusions left greater than right. She denies any further chest pain. Nephrology and cardiology following. Objective - Vital Signs Vital signs: Vital Signs Temp 98.7 F 08/04/16 04:00 Pulse 84 08/04/16 08:00 Resp 18 08/04/16 08:00 BP 110/53 08/04/16 04:00 Pulse Ox 92 L 08/04/16 04:00 Intake & Output 08/03/16 08/04/16 08/04/16 18:59 06:59 18:59 Intake Total 860 495.846 220 Output Total 125 Balance 735 495.846 220 Weight 97.9 kg 98.8 kg Intake: IV 200 Sodium Chloride 0.9% 1, 200 000 ml @ 40 mls/hr IV . Q24H [facility] Rx#:[id number] Intake, IV Titration 240 495.846 Amount Heparin Sodium,Porcine/ 495.846 D5w Pmx 25,000 unit In Dextrose/Water 1 500ml. bag @ 10.2 UNITS/KG/HR 19 .95 mls/hr IV .Q24H [facility] Rx#:[id number] Sodium Chloride 0.9% 1, 240 000 ml @ 40 mls/hr IV . Q24H [facility] Rx#:[id number] Oral 420 220 Output: Urine 125 Other: Voiding Method Toilet Toilet Toilet Bedside Commode Bedside Commode # Voids 1 1 - Exam Head normocephalic Neck supple Lungs crackles at bases Heart regular rate and rhythm S1-S2, no rub or gallop Abdomen is soft nontender nondistended positive bowel sounds no hepatosplenomegaly Extremities no edema Neuro alert and orientated to 3 - Labs CBC & Chem 7: 08/04/16 05:32 08/04/16 05:32 Labs: Abnormal Lab Results - Last 24 Hours (Table) 08/03/16 08/03/16 08/03/16 Range/Units 11:50 16:42 20:24 RBC (3.80-5.40) m/uL Hgb (11.4-16.0) gm/dL MCHC (31.0-37.0) g/dL RDW (11.5-15.5) % Plt Count (150-450) k/uL APTT (22.0-30.0) sec Sodium (137-145) mmol/L Carbon Dioxide (22-30) mmol/L BUN (7-17) mg/dL Creatinine (0.52-1.04) mg/dL Glucose (74-99) mg/dL POC Glucose (mg/dL) 236 H 146 H 146 H (75-99) mg/dL Calcium (8.4-10.2) mg/dL Alkaline Phosphatase (38-126) U/L Total Protein (6.3-8.2) g/dL Albumin (3.5-5.0) g/dL 08/04/16 08/04/16 08/04/16 Range/Units 05:32 05:32 05:32 RBC 3.45 L (3.80-5.40) m/uL Hgb 10.5 L (11.4-16.0) gm/dL MCHC 30.7 L (31.0-37.0) g/dL RDW 20.3 H (11.5-15.5) % Plt Count 124 L (150-450) k/uL APTT 49.8 H (22.0-30.0) sec Sodium 135 L (137-145) mmol/L Carbon Dioxide 20 L (22-30) mmol/L BUN 34 H (7-17) mg/dL Creatinine 6.52 H* (0.52-1.04) mg/dL Glucose 176 H (74-99) mg/dL POC Glucose (mg/dL) (75-99) mg/dL Calcium 7.5 L (8.4-10.2) mg/dL Alkaline Phosphatase 196 H (38-126) U/L Total Protein 5.8 L (6.3-8.2) g/dL Albumin 3.4 L (3.5-5.0) g/dL 08/04/16 Range/Units 06:16 RBC (3.80-5.40) m/uL Hgb (11.4-16.0) gm/dL MCHC (31.0-37.0) g/dL RDW (11.5-15.5) % Plt Count (150-450) k/uL APTT (22.0-30.0) sec Sodium (137-145) mmol/L Carbon Dioxide (22-30) mmol/L BUN (7-17) mg/dL Creatinine (0.52-1.04) mg/dL Glucose (74-99) mg/dL POC Glucose (mg/dL) 161 H (75-99) mg/dL Calcium (8.4-10.2) mg/dL Alkaline Phosphatase (38-126) U/L Total Protein (6.3-8.2) g/dL Albumin (3.5-5.0) g/dL Assessment and Plan Plan: #1 episode of chest pain radiating to the back currently patient is chest pain- free she is maintained on IV heparin troponin level is elevated however this may be related to renal failure awaiting cardiology input. awaiting cardiology evaluation for today. Echo shows an EF of 40-45% with severe mitral regurgitation. Also mid to basilar inferiorlateral hypokinetic #2 underlying history of coronary artery disease with recent history of angioplasty and stent placement in April 2016 #3 underlying history of end-stage renal disease on hemodialysis . Evaluated by nephrology. patient had hemodialysis yesterday and scheduled again for today #4 insulin-dependent diabetes mellitus. Continue with sliding scale coverage. Resume her Lantus tonight. Hemoglobin A1c is 7.2 #5 hypotension: Nephrology has increased the midodrine #6 hyperlipidemia #7 hyperkalemia: corrected with dialysis #8 vomiting and diarrhea: Continue to monitor. Continue with Zofran as needed. Check stool for C. diff.
[2016-08-04 11:36] LABS: Glucose,Whole Blood 236 mg/dL (75-99)
[2016-08-04] MEDS: SODIUM CHLORIDE 0.9% 1,000 ML IV SCH (11:40)
[2016-08-04 16:32] LABS: Glucose,Whole Blood 117 mg/dL (75-99)
[2016-08-04] MEDS ORDERED: GELATIN SPONGE,ABSORB (SMALL) 1 EACH SPONGE ONE (16:35)
--- NOTE | 2016-08-04 17:01 | PN ---
Patient apparently underwent cardiac catheterization and found to have normal coronaries, ejection fraction is around 40% to 45%. Later on developed ischemia with atypical chest pain and developed acute renal failure requiring dialysis. The patient is on dialysis without any major complaints. Patient is moderately obese with a BMI of 36. Patient's creatinine is 6.52 now on dialysis. Patient's cardiac status is stable. Will see her as our services are needed in the future.
[2016-08-04 21:04] LABS: Glucose,Whole Blood 214 mg/dL (75-99)
[2016-08-04] MEDS: INSULIN GLARGINE 100 UNIT/ML 10 ML VIAL SQ SCH (21:31)
[2016-08-04] MEDS: SERTRALINE 50 MG TAB PO SCH (23:33)
[2016-08-04] MEDS: ATORVASTATIN 40 MG TAB PO SCH (23:34)
[2016-08-04] MEDS: MONTELUKAST 10 MG TAB PO SCH (23:34)
[2016-08-04] MEDS: CLOPIDOGREL 75 MG TAB PO SCH (23:34)
[2016-08-04] MEDS: CINACALCET 30 MG TAB PO SCH (23:38)
[2016-08-05] MEDS: ONDANSETRON 4 MG/2 ML VIAL IVP PRN ×4 (04:24→23:59)
[2016-08-05] MEDS: ACETAMINOPHEN TAB 325 MG TAB PO PRN ×4 (04:32→23:35)
[2016-08-05 06:26] LABS: Glucose,Whole Blood 176 mg/dL (75-99)
[2016-08-05] MEDS: INSULIN LISPRO (humaLOG) 300 UNIT/3 ML VIAL SQ SCH ×4 (06:36→21:10)
[2016-08-05] MEDS: MIDODRINE 5 MG TAB PO SCH ×3 (06:36→17:04)
[2016-08-05] MEDS: CALCIUM ACETATE 667 MG CAP PO SCH ×4 (06:36→23:59)
[2016-08-05 06:45] LABS: Anisocytosis Moderate; Basophils # (A) 0.1 k/uL (0-0.2); Basophils % (A) 1 %; CH 29.9; CHCM 30.5; Eosinophils # (A) 0.1 k/uL (0-0.7); Eosinophils % (A) 1 %; HCT 34.8 % (34.0-46.0); HDW 3.27; HGB 10.3 gm/dL (11.4-16.0); Hypochromasia Marked; Luc # (Auto) 0.11; Luc % (Auto) 1; Lymphocytes # (A) 0.6 k/uL (1.0-4.8); Lymphocytes % (A) 8 %; MCH 29.2 pg (25.0-35.0); MCHC 29.6 g/dL (31.0-37.0); MCV 98.5 fL (80.0-100.0); Macrocytosis Moderate; Mean Platelet Volume 8.7; Monocytes # (A) 0.3 k/uL (0-1.0); Monocytes % (A) 4 %; Neutrophils # (A) 6.8 k/uL (1.3-7.7); Neutrophils % (A) 85 %; RBC 3.54 m/uL (3.80-5.40); RDW 20.3 % (11.5-15.5); WBC (Perox) 8.24
[2016-08-05 07:13] LABS: Calcium 8.2 mg/dL (8.4-10.2); Potassium 4.4 mmol/L (3.5-5.1); Total Bilirubin 0.6 mg/dL (0.2-1.3)
--- NOTE | 2016-08-05 08:11 | P.PN ---
Subjective Patient is seen in follow-up for end-stage renal disease. She is maintained on hemodialysis on a Sunday schedule. Patient presented with hypotension and chest discomfort. This morning she is still not feeling too well. She feels nauseous and had emesis overnight. Oral intake remains poor. Denies diarrhea. No chest pain or shortness of breath. Vital signs are stable. General: The patient appeared well nourished and normally developed. HEENT: Head exam is unremarkable. Neck is without jugular venous distension. LUNGS: Lungs are clear to auscultation and percussion. Breath sounds decreased. HEART: Rate and Rhythm are regular. First and second heart sounds normal. No murmurs, rubs or gallops. ABDOMEN: Abdominal exam reveals normal bowel sounds. Non-tender and non- distended. No evidence of peritonitis. EXTREMITITES: No clubbing, cyanosis, or edema. Objective - Vital Signs Vital signs: Vital Signs Temp 98.1 F 08/05/16 04:00 Pulse 91 08/05/16 04:00 Resp 16 08/05/16 04:00 BP 119/65 08/05/16 04:00 Pulse Ox 95 08/05/16 04:00 Intake & Output 08/04/16 08/05/16 08/05/16 18:59 06:59 18:59 Intake Total 460 320 180 Output Total 0 250 Balance 460 70 180 Weight 98.6 kg Intake: IV 320 Sodium Chloride 0.9% 1, 320 000 ml @ 40 mls/hr IV . Q24H [facility] Rx#:[id number] Oral 460 180 Output: Urine 250 Emesis 0 Other: Voiding Method Toilet Toilet # Voids 1 - Labs CBC & Chem 7: 08/05/16 06:29 08/05/16 06:29 Labs: Abnormal Lab Results - Last 24 Hours (Table) 08/04/16 08/04/16 08/04/16 Range/Units 11:32 16:31 20:51 RBC (3.80-5.40) m/uL Hgb (11.4-16.0) gm/dL MCHC (31.0-37.0) g/dL RDW (11.5-15.5) % Plt Count (150-450) k/uL Lymphocytes # (1.0-4.8) k/uL Sodium (137-145) mmol/L Carbon Dioxide (22-30) mmol/L BUN (7-17) mg/dL Creatinine (0.52-1.04) mg/dL Glucose (74-99) mg/dL POC Glucose (mg/dL) 236 H 117 H 214 H (75-99) mg/dL Calcium (8.4-10.2) mg/dL Alkaline Phosphatase (38-126) U/L Total Protein (6.3-8.2) g/dL 08/05/16 08/05/16 08/05/16 Range/Units 06:00 06:29 06:29 RBC 3.54 L (3.80-5.40) m/uL Hgb 10.3 L (11.4-16.0) gm/dL MCHC 29.6 L (31.0-37.0) g/dL RDW 20.3 H (11.5-15.5) % Plt Count 126 L (150-450) k/uL Lymphocytes # 0.6 L (1.0-4.8) k/uL Sodium 136 L (137-145) mmol/L Carbon Dioxide 19 L (22-30) mmol/L BUN 21 H (7-17) mg/dL Creatinine 5.23 H* (0.52-1.04) mg/dL Glucose 175 H (74-99) mg/dL POC Glucose (mg/dL) 176 H (75-99) mg/dL Calcium 8.2 L (8.4-10.2) mg/dL Alkaline Phosphatase 189 H (38-126) U/L Total Protein 6.0 L (6.3-8.2) g/dL Assessment and Plan Plan: Assessment: #1. End-stage renal disease maintained on hemodialysis on a Sunday schedule. #2. History of coronary artery disease status post CABG and stent placement. #3. Hypotension. Improved. #4. Chronic kidney disease mineral bone disease. Plan: Hemodialysis Sunday with goal 1-2 L ultrafiltration. Continue IV fluids at 40 mL an hour until oral intake improves. Maintain Midodrine to 10 mg 3 times daily. Maintain PhosLo with meals. Maintain oral sodium bicarbonate supplementation. Cardiology following. No plans for any intervention at this time. Continue anti-emetics and PPI.
[2016-08-05] MEDS: SODIUM CHLORIDE 0.9% 1,000 ML IV SCH (08:54)
[2016-08-05] MEDS: FOLIC ACID-VIT B COMPLEX-VIT C 1 CAP PO SCH (08:55)
[2016-08-05] MEDS: GABAPENTIN 100 MG CAP PO SCH ×2 (08:56→23:59)
[2016-08-05] MEDS: ALLOPURINOL 100 MG TAB PO SCH (08:56)
[2016-08-05] MEDS: FUROSEMIDE 80 MG TAB PO SCH ×2 (08:56→16:28)
[2016-08-05] MEDS: ASPIRIN 325 MG TAB PO SCH (08:56)
[2016-08-05] MEDS: PANTOPRAZOLE 40 MG TABLET PO SCH ×2 (08:57→21:39)
[2016-08-05] MEDS: HEPARIN SODIUM,PORCINE/D5W PMX 25,000 UNIT in DEXTROSE/WATER 1 500ML.BAG IV SCH (08:57)
[2016-08-05] MEDS: SODIUM BICARBONATE TAB 650 MG TAB PO SCH ×2 (08:57→23:59)
[2016-08-05 11:44] LABS: Glucose,Whole Blood 205 mg/dL (75-99)
--- NOTE | 2016-08-05 11:59 | P.PN ---
Subjective Patient is not feeling well today. She had 6 loose bowel movements since yesterday. Unfortunately no stool sample was collected. Objective - Vital Signs Vital signs: Vital Signs Temp 98.5 F 08/05/16 08:00 Pulse 89 08/05/16 08:00 Resp 18 08/05/16 08:00 BP 108/55 08/05/16 08:00 Pulse Ox 91 L 08/05/16 08:00 Intake & Output 08/04/16 08/05/16 08/05/16 18:59 06:59 18:59 Intake Total 460 320 350 Output Total 0 250 Balance 460 70 350 Weight 98.6 kg Intake: IV 320 170 Invasive Line 1 10 Sodium Chloride 0.9% 1, 320 160 000 ml @ 40 mls/hr IV . Q24H [facility] Rx#:[id number] Oral 460 180 Output: Urine 250 Emesis 0 Other: Voiding Method Toilet Toilet # Voids 1 - Exam General: The patient is awake and alert, in no distress Eye: there is normal conjunctiva bilaterally. Neck: The neck is supple, there is no JVD. Cardiovascular: Normal S1-S2, no S3-S4, no murmurs. Respiratory: Lungs clear to auscultation bilaterally Gastrointestinal: Abdomen is soft, nontender Musculoskeletal: There is no pedal edema. Neurological:. Speech is normal. Skin: Skin is warm and dry - Labs CBC & Chem 7: 08/05/16 06:29 08/05/16 06:29 Labs: Abnormal Lab Results - Last 24 Hours (Table) 08/04/16 08/04/16 08/05/16 Range/Units 16:31 20:51 06:00 RBC (3.80-5.40) m/uL Hgb (11.4-16.0) gm/dL MCHC (31.0-37.0) g/dL RDW (11.5-15.5) % Plt Count (150-450) k/uL Lymphocytes # (1.0-4.8) k/uL Sodium (137-145) mmol/L Carbon Dioxide (22-30) mmol/L BUN (7-17) mg/dL Creatinine (0.52-1.04) mg/dL Glucose (74-99) mg/dL POC Glucose (mg/dL) 117 H 214 H 176 H (75-99) mg/dL Calcium (8.4-10.2) mg/dL Alkaline Phosphatase (38-126) U/L Total Protein (6.3-8.2) g/dL 08/05/16 08/05/16 08/05/16 Range/Units 06:29 06:29 11:39 RBC 3.54 L (3.80-5.40) m/uL Hgb 10.3 L (11.4-16.0) gm/dL MCHC 29.6 L (31.0-37.0) g/dL RDW 20.3 H (11.5-15.5) % Plt Count 126 L (150-450) k/uL Lymphocytes # 0.6 L (1.0-4.8) k/uL Sodium 136 L (137-145) mmol/L Carbon Dioxide 19 L (22-30) mmol/L BUN 21 H (7-17) mg/dL Creatinine 5.23 H* (0.52-1.04) mg/dL Glucose 175 H (74-99) mg/dL POC Glucose (mg/dL) 205 H (75-99) mg/dL Calcium 8.2 L (8.4-10.2) mg/dL Alkaline Phosphatase 189 H (38-126) U/L Total Protein 6.0 L (6.3-8.2) g/dL Assessment and Plan Plan: #1 episode of chest pain radiating to the back currently patient is chest pain- free. Most likely atypical in nature. Seen and evaluated by cardiology. Continue medical management. Echo shows an EF of 40-45% with severe mitral regurgitation. Also mid to basilar inferiorlateral hypokinetic #2 underlying history of coronary artery disease with recent history of angioplasty and stent placement in April 2016 #3 underlying history of end-stage renal disease on hemodialysis . Evaluated by nephrology. Continue hemodialysis as scheduled #4 insulin-dependent diabetes mellitus. Continue with sliding scale coverage and Lantus. Hemoglobin A1c is 7.2 #5 hypotension: Nephrology has increased the dose of midodrine #6 hyperlipidemia #7 hyperkalemia: corrected with dialysis #8 vomiting and diarrhea: Continue with Zofran as needed. Check stool for C. diff.
[2016-08-05 16:47] LABS: Glucose,Whole Blood 181 mg/dL (75-99)
[2016-08-05 20:32] LABS: Glucose,Whole Blood 224 mg/dL (75-99)
[2016-08-05] MEDS: METOCLOPRAMIDE 5 MG/ML 2 ML VIAL IVP PRN (21:09)
[2016-08-05] MEDS: HEPARIN SODIUM,PORCINE 5,000 UNIT/ML 1 ML VIAL SQ SCH (21:10)
[2016-08-05] MEDS: SERTRALINE 50 MG TAB PO SCH (21:39)
[2016-08-05] MEDS: INSULIN GLARGINE 100 UNIT/ML 10 ML VIAL SQ SCH (21:39)
[2016-08-05] MEDS: CLOPIDOGREL 75 MG TAB PO SCH (21:39)
[2016-08-05] MEDS: ATORVASTATIN 40 MG TAB PO SCH (21:39)
[2016-08-05] MEDS: CINACALCET 30 MG TAB PO SCH (21:40)
[2016-08-05] MEDS: MONTELUKAST 10 MG TAB PO SCH (23:59)
[2016-08-06] MEDS: ACETAMINOPHEN TAB 325 MG TAB PO PRN ×3 (05:45→23:06)
[2016-08-06] MEDS: ONDANSETRON 4 MG/2 ML VIAL IVP PRN (05:46)
[2016-08-06] MEDS: CALCIUM ACETATE 667 MG CAP PO SCH ×4 (06:34→22:35)
[2016-08-06] MEDS: MIDODRINE 5 MG TAB PO SCH ×3 (06:35→16:46)
[2016-08-06] MEDS: INSULIN LISPRO (humaLOG) 300 UNIT/3 ML VIAL SQ SCH ×4 (06:36→22:36)
[2016-08-06 06:52] LABS: Anisocytosis Slight; Basophils # (A) 0.1 k/uL (0-0.2); Basophils % (A) 2 %; CH 29.8; Eosinophils # (A) 0.1 k/uL (0-0.7); Eosinophils % (A) 1 %; HCT 34.9 % (34.0-46.0); HDW 3.24; HGB 10.8 gm/dL (11.4-16.0); Hypochromasia Moderate; Luc # (Auto) 0.14; Luc % (Auto) 2; Lymphocytes # (A) 0.5 k/uL (1.0-4.8); Lymphocytes % (A) 7 %; MCH 29.8 pg (25.0-35.0); MCHC 30.9 g/dL (31.0-37.0); MCV 96.6 fL (80.0-100.0); Macrocytosis Slight; Monocytes # (A) 0.5 k/uL (0-1.0); Monocytes % (A) 6 %; Neutrophils # (A) 6.3 k/uL (1.3-7.7); Neutrophils % (A) 83 %; RBC 3.61 m/uL (3.80-5.40); WBC 7.6 k/uL (3.8-10.6); WBC (Perox) 7.94
[2016-08-06 06:55] LABS: Glucose,Whole Blood 150 mg/dL (75-99)
[2016-08-06] MEDS: HEPARIN SODIUM,PORCINE 5,000 UNIT/ML 1 ML VIAL SQ SCH ×2 (07:39→22:35)
[2016-08-06] MEDS: FOLIC ACID-VIT B COMPLEX-VIT C 1 CAP PO SCH (07:41)
[2016-08-06] MEDS: FUROSEMIDE 80 MG TAB PO SCH ×2 (07:41→15:53)
[2016-08-06] MEDS: PANTOPRAZOLE 40 MG TABLET PO SCH ×2 (07:42→22:36)
[2016-08-06] MEDS: ASPIRIN 325 MG TAB PO SCH (07:42)
[2016-08-06] MEDS: GABAPENTIN 100 MG CAP PO SCH ×2 (07:42→22:35)
[2016-08-06] MEDS: SODIUM BICARBONATE TAB 650 MG TAB PO SCH ×2 (07:43→22:36)
[2016-08-06] MEDS: ALLOPURINOL 100 MG TAB PO SCH (07:43)
[2016-08-06] MEDS: METOCLOPRAMIDE 5 MG/ML 2 ML VIAL IVP PRN (07:49)
[2016-08-06 07:54] LABS: Calcium 8.1 mg/dL (8.4-10.2); Potassium 4.7 mmol/L (3.5-5.1); Total Bilirubin 0.5 mg/dL (0.2-1.3); Total Protein 5.9 g/dL (6.3-8.2)
[2016-08-06 11:41] LABS: Glucose,Whole Blood 182 mg/dL (75-99)
--- NOTE | 2016-08-06 12:53 | P.PN ---
Subjective Patient is complaining of cough that is productive of dark sputum. No shortness of breath. No fevers or chills. Objective - Vital Signs Vital signs: Vital Signs Temp 98.6 F 08/06/16 12:00 Pulse 86 08/06/16 12:00 Resp 18 08/06/16 12:00 BP 107/55 08/06/16 12:00 Pulse Ox 94 L 08/06/16 12:00 Intake & Output 08/05/16 08/06/16 08/06/16 18:59 06:59 18:59 Intake Total 754 139 Output Total 450 Balance 754 -450 139 Weight 100 kg Intake: IV 194 21 Invasive Line 1 24 21 Sodium Chloride 0.9% 1, 170 000 ml @ 40 mls/hr IV . Q24H [facility] Rx#:[id number] Oral 560 118 Output: Urine 450 Other: Voiding Method Toilet # Voids 1 - Exam General: The patient is awake and alert, in no distress Eye: there is normal conjunctiva bilaterally. Neck: The neck is supple, there is no JVD. Cardiovascular: Normal S1-S2, no S3-S4, no murmurs. Respiratory: Lungs clear to auscultation bilaterally Gastrointestinal: Abdomen is soft, nontender Musculoskeletal: There is no pedal edema. Neurological:. Speech is normal. Skin: Skin is warm and dry - Labs CBC & Chem 7: 08/06/16 06:20 08/06/16 06:20 Labs: Abnormal Lab Results - Last 24 Hours (Table) 08/05/16 08/05/16 08/05/16 Range/Units 11:30 16:40 20:13 RBC (3.80-5.40) m/uL Hgb (11.4-16.0) gm/dL MCHC (31.0-37.0) g/dL RDW (11.5-15.5) % Plt Count (150-450) k/uL Lymphocytes # (1.0-4.8) k/uL Carbon Dioxide (22-30) mmol/L BUN (7-17) mg/dL Creatinine (0.52-1.04) mg/dL Glucose (74-99) mg/dL POC Glucose (mg/dL) 181 H 224 H (75-99) mg/dL Calcium (8.4-10.2) mg/dL Alkaline Phosphatase (38-126) U/L Total Protein (6.3-8.2) g/dL Stool Occult Blood Positive H (Negative) 08/06/16 08/06/16 08/06/16 Range/Units 06:20 06:20 06:25 RBC 3.61 L (3.80-5.40) m/uL Hgb 10.8 L (11.4-16.0) gm/dL MCHC 30.9 L (31.0-37.0) g/dL RDW 20.0 H (11.5-15.5) % Plt Count 112 L (150-450) k/uL Lymphocytes # 0.5 L (1.0-4.8) k/uL Carbon Dioxide 21 L (22-30) mmol/L BUN 30 H (7-17) mg/dL Creatinine 6.88 H* (0.52-1.04) mg/dL Glucose 156 H (74-99) mg/dL POC Glucose (mg/dL) 150 H (75-99) mg/dL Calcium 8.1 L (8.4-10.2) mg/dL Alkaline Phosphatase 182 H (38-126) U/L Total Protein 5.9 L (6.3-8.2) g/dL Stool Occult Blood (Negative) 08/06/16 Range/Units 11:39 RBC (3.80-5.40) m/uL Hgb (11.4-16.0) gm/dL MCHC (31.0-37.0) g/dL RDW (11.5-15.5) % Plt Count (150-450) k/uL Lymphocytes # (1.0-4.8) k/uL Carbon Dioxide (22-30) mmol/L BUN (7-17) mg/dL Creatinine (0.52-1.04) mg/dL Glucose (74-99) mg/dL POC Glucose (mg/dL) 182 H (75-99) mg/dL Calcium (8.4-10.2) mg/dL Alkaline Phosphatase (38-126) U/L Total Protein (6.3-8.2) g/dL Stool Occult Blood (Negative) Assessment and Plan Plan: #1 episode of chest pain radiating to the back currently patient is chest pain- free. Most likely atypical in nature. Seen and evaluated by cardiology. Continue medical management. Echo shows an EF of 40-45% with severe mitral regurgitation. Also mid to basilar inferiorlateral hypokinetic #2 underlying history of coronary artery disease with recent history of angioplasty and stent placement in April 2016 #3 underlying history of end-stage renal disease on hemodialysis . Evaluated by nephrology. Continue hemodialysis as scheduled #4 insulin-dependent diabetes mellitus. Continue with sliding scale coverage and Lantus. Hemoglobin A1c is 7.2 #5 hypotension: Nephrology has increased the dose of midodrine #6 hyperlipidemia #7 hyperkalemia: corrected with dialysis #8 vomiting and diarrhea: Continue with Zofran as needed. Stool was too formed to check for C. diff
[2016-08-06 16:36] LABS: Glucose,Whole Blood 148 mg/dL (75-99)
--- NOTE | 2016-08-06 17:24 | XR ---
EXAMINATION TYPE: XR chest 2V DATE OF EXAM: 08/06/2016 3:42 PM COMPARISON: Prior chest x-ray from 2 days ago. HISTORY: Increasing sputum and cough. TECHNIQUE: Frontal and lateral views of the chest are obtained. FINDINGS: Post CABG changes with mediastinal clips and sternal wires is redemonstrated. There is pers istent small left pleural effusion with associated left basilar atelectasis and/or infiltrate. Right lung remains clear. The cardiac silhouette size is stable and enlarged. The osseous structures are intact. IMPRESSION: Cardiomegaly with small left pleural effusion and associated left basilar atelectasis an d/or infiltrate all redemonstrated, no significant change from prior study is seen.
[2016-08-06 21:43] LABS: Glucose,Whole Blood 187 mg/dL (75-99)
[2016-08-06] MEDS: ATORVASTATIN 40 MG TAB PO SCH (22:34)
[2016-08-06] MEDS: CINACALCET 30 MG TAB PO SCH (22:35)
[2016-08-06] MEDS: CLOPIDOGREL 75 MG TAB PO SCH (22:35)
[2016-08-06] MEDS: MONTELUKAST 10 MG TAB PO SCH (22:36)
[2016-08-06] MEDS: SERTRALINE 50 MG TAB PO SCH (22:36)
[2016-08-06] MEDS: INSULIN GLARGINE 100 UNIT/ML 10 ML VIAL SQ SCH (22:46)
[2016-08-07 06:35] LABS: Glucose,Whole Blood 104 mg/dL (75-99)
[2016-08-07] MEDS: INSULIN LISPRO (humaLOG) 300 UNIT/3 ML VIAL SQ SCH ×2 (06:36→12:02)
[2016-08-07] MEDS: CALCIUM ACETATE 667 MG CAP PO SCH ×2 (06:38→12:43)
[2016-08-07] MEDS: MIDODRINE 5 MG TAB PO SCH ×3 (06:42→12:43)
[2016-08-07 06:45] LABS: Anisocytosis Slight; Basophils % (A) 1 %; CH 29.2; CHCM 29.9; Eosinophils # (A) 0.1 k/uL (0-0.7); Eosinophils % (A) 2 %; Hypochromasia Marked; Luc # (Auto) 0.17; Luc % (Auto) 3; Lymphocytes % (A) 16 %; MCH 28.7 pg (25.0-35.0); MCHC 29.2 g/dL (31.0-37.0); Macrocytosis Moderate; Mean Platelet Volume 9.3; Monocytes # (A) 0.4 k/uL (0-1.0); Monocytes % (A) 6 %; Neutrophils # (A) 4.5 k/uL (1.3-7.7); Neutrophils % (A) 73 %; RBC 3.47 m/uL (3.80-5.40); RDW 19.7 % (11.5-15.5); WBC 6.2 k/uL (3.8-10.6); WBC (Perox) 6.52
[2016-08-07 06:57] LABS: Calcium 7.6 mg/dL (8.4-10.2); Potassium 4.6 mmol/L (3.5-5.1); Total Bilirubin 0.4 mg/dL (0.2-1.3); Total Protein 5.7 g/dL (6.3-8.2)
[2016-08-07] MEDS: FUROSEMIDE 80 MG TAB PO SCH (08:40)
[2016-08-07] MEDS: GABAPENTIN 100 MG CAP PO SCH (08:40)
--- NOTE | 2016-08-07 08:40 | P.PN ---
Subjective Patient is seen in follow-up for end-stage renal disease. She is maintained on hemodialysis on a Sunday schedule. Patient presented with hypotension and chest discomfort. She is better today. Denies further nausea and vomiting. Oral intake is improved. Admits to chronic diarrhea. No chest pain or shortness of breath. Vital signs are stable. General: The patient appeared well nourished and normally developed. HEENT: Head exam is unremarkable. Neck is without jugular venous distension. LUNGS: Lungs are clear to auscultation and percussion. Breath sounds decreased. HEART: Rate and Rhythm are regular. First and second heart sounds normal. No murmurs, rubs or gallops. ABDOMEN: Abdominal exam reveals normal bowel sounds. Non-tender and non- distended. No evidence of peritonitis. EXTREMITITES: No clubbing, cyanosis, or edema. Objective - Vital Signs Vital signs: Vital Signs Temp 97.1 F L 08/07/16 04:00 Pulse 78 08/07/16 04:00 Resp 18 08/07/16 04:00 BP 95/51 08/07/16 04:00 Pulse Ox 95 08/07/16 04:00 Intake & Output 08/06/16 08/07/16 08/07/16 18:59 06:59 18:59 Intake Total 257 Balance 257 Weight 98.4 kg Intake: IV 21 Invasive Line 1 21 Oral 236 Other: Voiding Method Toilet # Voids 2 0 - Labs CBC & Chem 7: 08/07/16 06:12 08/07/16 06:12 Labs: Abnormal Lab Results - Last 24 Hours (Table) 08/06/16 08/06/16 08/06/16 Range/Units 11:39 16:34 21:03 RBC (3.80-5.40) m/uL Hgb (11.4-16.0) gm/dL MCHC (31.0-37.0) g/dL RDW (11.5-15.5) % Plt Count (150-450) k/uL Carbon Dioxide (22-30) mmol/L BUN (7-17) mg/dL Creatinine (0.52-1.04) mg/dL Glucose (74-99) mg/dL POC Glucose (mg/dL) 182 H 148 H 187 H (75-99) mg/dL Calcium (8.4-10.2) mg/dL Alkaline Phosphatase (38-126) U/L Total Protein (6.3-8.2) g/dL Albumin (3.5-5.0) g/dL 08/07/16 08/07/16 08/07/16 Range/Units 06:06 06:12 06:12 RBC 3.47 L (3.80-5.40) m/uL Hgb 10.0 L (11.4-16.0) gm/dL MCHC 29.2 L (31.0-37.0) g/dL RDW 19.7 H (11.5-15.5) % Plt Count 130 L (150-450) k/uL Carbon Dioxide 19 L (22-30) mmol/L BUN 41 H (7-17) mg/dL Creatinine 8.50 H* (0.52-1.04) mg/dL Glucose 105 H (74-99) mg/dL POC Glucose (mg/dL) 104 H (75-99) mg/dL Calcium 7.6 L (8.4-10.2) mg/dL Alkaline Phosphatase 168 H (38-126) U/L Total Protein 5.7 L (6.3-8.2) g/dL Albumin 3.4 L (3.5-5.0) g/dL Assessment and Plan Plan: Assessment: #1. End-stage renal disease maintained on hemodialysis on a Sunday schedule. #2. History of coronary artery disease status post CABG and stent placement. #3. Hypotension. Improved. #4. Chronic kidney disease mineral bone disease. Plan: Hemodialysis today with goal 2-2.5 L ultrafiltration. Maintain Midodrine to 10 mg 3 times daily. Maintain PhosLo with meals. Maintain oral sodium bicarbonate supplementation. Cardiology following. No plans for any intervention at this time. Potential discharge today after dialysis.
[2016-08-07] MEDS: SODIUM BICARBONATE TAB 650 MG TAB PO SCH (08:41)
[2016-08-07] MEDS: ASPIRIN 325 MG TAB PO SCH (08:42)
[2016-08-07] MEDS: HEPARIN SODIUM,PORCINE 5,000 UNIT/ML 1 ML VIAL SQ SCH (08:42)
[2016-08-07] MEDS: ALLOPURINOL 100 MG TAB PO SCH (08:42)
[2016-08-07] MEDS: FOLIC ACID-VIT B COMPLEX-VIT C 1 CAP PO SCH (08:42)
[2016-08-07] MEDS: PANTOPRAZOLE 40 MG TABLET PO SCH (08:43)
[2016-08-07 10:01] VITALS: RESP 16
[2016-08-07] MEDS ORDERED: HYDROCORTISONE SUPPOSITORY 25 MG SUPP RECTAL SCH (11:30)
[2016-08-07 11:54] LABS: Glucose,Whole Blood 107 mg/dL (75-99)
[2016-08-07 12:27] VITALS: BP 124/65; PULSE 79; TEMP 97.7
[2016-08-07] MEDS ORDERED: GELATIN SPONGE,ABSORB (SMALL) 1 EACH SPONGE ONE (12:30)
--- NOTE | 2016-08-07 13:55 | P.DS ---
Providers Date of admission: 08/02/16 08:34 Expected date of discharge: 08/07/16 Attending physician: Kyle Campos Consults: 08/02/16 08:57 Consult Physician Stat Consulting Provider: Gricelda Andrea Consult Reason/Comments: abnormal labs/kidney failure Do you want consulting provider notified?: Yes cardiology Primary care physician: Kyle Campos [facility] Course: discharge diagnosis #1 episode of chest pain radiating to the back currently patient is chest pain- free. Most likely atypical in nature. CO ruled out.Seen and evaluated by cardiology. Continue medical management. Echo shows an EF of 40-45% with severe mitral regurgitation. Also mid to basilar inferiorlateral hypokinetic #2 underlying history of coronary artery disease with recent history of angioplasty and stent placement in April 2016 #3 underlying history of end-stage renal disease on hemodialysis . Evaluated by nephrology. Continue hemodialysis as scheduled #4 insulin-dependent diabetes mellitus. Continue with sliding scale coverage and Lantus. Hemoglobin A1c is 7.2 #5 hypotension: Nephrology has increased the dose of midodrine to 10 mg 3 times a day. Blood pressures have shown improvement #6 hyperlipidemia #7 hyperkalemia: corrected with dialysis #8 vomiting and diarrhea: Continue with Zofran as needed. Stool was too formed to check for C. diff #9 hemorrhoids: A quick to being to the positive stool occult blood. Hemoglobin 10. Patient started on Anusol suppository #10 acute on chronic anemia: Acute anemia likely related to hemorrhoids. Chronic anemia due to chronic kidney disease. Hemoglobin 10 at discharge. Hospital course 61-year-old female who presented with complaints of chest pain and hypotension during dialysis. patient was seen by cardiology and nephrology during this admission. CO was ruled out. Cardiology recommended continuing current medications and's and had signed off. Nephrology did increase the Midrin to 10 mg 3 times a day to help with her hypotension. Blood pressures have shown improvement. She's been able to tolerate dialysis. Chest pain has resolved. Patient's vomiting and diarrhea have resolved. Stool is formed and unable to collect stool for C. diff. Patient has been cleared by consulting physicians for discharge. She'll continue her regular scheduled dialysis. Please refer to chart for any further details. Patient is medical stable for discharge.also note the patient's metoprolol was held during this admission. At this time we will hold off on restarting the metoprolol. We'll have her evaluated in the office in a week with Dr. Campos. Further adjustments in medications will be done at that time. Patient Condition at Discharge: Stable Plan - Discharge Summary New Discharge Prescriptions: Hydrocortisone Suppository [Anusol-Hc] 25 mg RECTAL DAILY #30 supp Midodrine [ProAmatine] 10 mg PO AC-TID #90 tab Discharge Medication List Allopurinol [Zyloprim] 100 mg PO DAILY@0900 11/15/14 [History] Gabapentin [Neurontin] 100 mg PO BID@0900,209911/15/14 [History] Nitroglycerin Sl Tabs [Nitrostat] 0.4 mg SUBLINGUAL Q5M PRN #25 tab 11/19/14 [Rx ] Omeprazole [PriLOSEC] 20 mg PO BID@0900,209901/31/15 [History] Epoetin Adam [Epogen] 4,000 unit IV MOWEFR 03/03/15 [History] Insulin Glargine [Lantus] 30 unit SQ HS 03/03/15 [History] Loperamide [Imodium] 2 mg PO QID PRN 03/03/15 [History] Mv-Min/Vit C/Glu/Karla HCl/Hc124 [Airborne Tablet Chewable] 1 tab PO QID PRN 03/03 [History] Sertraline [Zoloft] 50 mg PO HS 03/03/15 [History] Atorvastatin [Lipitor] 40 mg PO HS 04/23/15 [History] Clopidogrel [Plavix] 75 mg PO HS 04/23/15 [History] Aspirin [Adult Low Dose Aspirin EC] 81 mg PO HS 05/06/16 [History] Calcium Acetate [PhosLo] 2,001 mg PO AC-TID 05/06/16 [History] Cinacalcet HCl [Sensipar] 30 mg PO HS 05/06/16 [History] Furosemide [Lasix] 80 mg PO BID 05/06/16 [History] Insulin Aspart [NovoLOG] See Protocol SQ AC-TID 05/06/16 [History] Slow-Mag 71.5mg 71.5 mg PO QAM 05/06/16 [History] Slow-Mag 71.5mg 143 mg PO HS 05/06/16 [History] Sodium Bicarbonate Tab 650 mg PO BID 05/06/16 [History] Isosorbide Mononitrate ER [Imdur] 30 mg PO QAM 06/24/16 [History] Montelukast [Singulair] 10 mg PO HS #30 tab 06/30/16 [Rx] Calcium Acetate [PhosLo] 667 mg PO HS 08/02/16 [History] Hydrocortisone Suppository [Anusol-Hc] 25 mg RECTAL DAILY #30 supp 08/07/16 [Rx] Midodrine [ProAmatine] 10 mg PO AC-TID #90 tab 08/07/16 [Rx] Follow up Appointment(s)/Referral(s): Kyle Campos MD [Primary Care Provider] - 1 Week Activity/Diet/Wound Care/Special Instructions: Diet: cardiac, renal, diabetic Activity: As tolerated Continue with her Sunday dialysis schedule Discharge Disposition: HOME SELF-CARE
== END 2016-08-07 14:56 | disposition home or self-care (01) | DRG 312 ==
LOC: EC 06:36 → 6SEL 08:34
PROVIDERS: ADMIT Internal Medicine; ATTEND Internal Medicine
PROC: 5A1D60Z (ICD-10-PCS; principal; 2016-08-03)
DX: I95.3 Hypotension of hemodialysis (principal); I12.0 Hypertensive chronic kidney disease with stage 5 chronic kidney disease or end stage renal disease; E11.22 Type 2 diabetes mellitus with diabetic chronic kidney disease; N18.6 End stage renal disease; J98.11 Atelectasis; R07.89 Other chest pain; I25.2 Old myocardial infarction; E87.5 Hyperkalemia; I25.10 Atherosclerotic heart disease of native coronary artery without angina pectoris; E03.9 Hypothyroidism, unspecified; D63.1 Anemia in chronic kidney disease; E66.9 Obesity, unspecified; E78.5 Hyperlipidemia, unspecified; F32.9 Major depressive disorder, single episode, unspecified; G47.30 Sleep apnea, unspecified; I34.0 Nonrheumatic mitral (valve) insufficiency; K52.9 Noninfective gastroenteritis and colitis, unspecified; K64.9 Unspecified hemorrhoids; M10.9 Gout, unspecified; Z68.36 Body mass index [BMI] 36.0-36.9, adult; Z79.4 Long term (current) use of insulin; Z79.82 Long term (current) use of aspirin; Z79.899 Other long term (current) drug therapy; Z82.49 Family history of ischemic heart disease and other diseases of the circulatory system; Z95.1 Presence of aortocoronary bypass graft; Z95.5 Presence of coronary angioplasty implant and graft; Z99.2 Dependence on renal dialysis; Z88.6 Allergy status to analgesic agent; Z88.1 Allergy status to other antibiotic agents; Z88.5 Allergy status to narcotic agent; Z91.013 Allergy to seafood
CPT/HCPCS: 36415; 71020; 80053; 80061; 82272; 82550; 82553; 83036; 83735; 84100; 84484; 85025; 85610; 85730; 87324; 90935; 93005; 93306; 96365; 96366; 96376; 99291

== ENCOUNTER 2016-10-02 09:34 | Inpatient (IN) | payer MEDICARE, BC ==
--- NOTE | 2016-10-02 09:50 | ED ---
General Adult HPI - General Chief complaint: Arrhythmia/Palpitations Stated complaint: low heart rate Time Seen by Provider: 10/02/16 09:49 Source: patient, RN notes reviewed, old records reviewed Mode of arrival: ambulatory - History of Present Illness Initial comments: This is a 7-year-old female ER for evaluation of low heart rate. Patient has intermittent shortness of breath exertional shortness of breath. Patient does have Acute medical history including kidney disease. Patient coming in with increased shortness of breath but symptoms are improved at this time. No fevers. No chest pain. She did have mild chest pain earlier. Patient states lately she's been feeling punky. She does get dialysis Sunday and has been getting scheduled. No new medications - Related Data Home Medications Medication Instructions Recorded Confirmed Allopurinol [Zyloprim] 100 mg PO DAILY@0900 11/15/14 08/02/16 Gabapentin [Neurontin] 100 mg PO BID@0900,209911/15/14 08/02/16 Omeprazole [PriLOSEC] 20 mg PO BID@0900,209901/31/15 08/02/16 Epoetin Adam [Epogen] 4,000 unit IV MOWEFR 03/03/15 08/02/16 Insulin Glargine [Lantus] 30 unit SQ HS 03/03/15 08/02/16 Loperamide [Imodium] 2 mg PO QID PRN 03/03/15 08/02/16 Mv-Min/Vit C/Glu/Karla HCl/Hc124 1 tab PO QID PRN 03/03/15 08/02/16 [Airborne Tablet Chewable] Sertraline [Zoloft] 50 mg PO HS 03/03/15 08/02/16 Atorvastatin [Lipitor] 40 mg PO HS 04/23/15 08/02/16 Clopidogrel [Plavix] 75 mg PO HS 04/23/15 08/02/16 Aspirin [Adult Low Dose Aspirin EC] 81 mg PO HS 05/06/16 08/02/16 Calcium Acetate [PhosLo] 2,001 mg PO AC-TID 05/06/16 08/02/16 Cinacalcet HCl [Sensipar] 30 mg PO HS 05/06/16 08/02/16 Furosemide [Lasix] 80 mg PO BID 05/06/16 08/02/16 Insulin Aspart [NovoLOG] See Protocol SQ AC-TID 05/06/16 08/02/16 Slow-Mag 71.5mg 71.5 mg PO QAM 05/06/16 08/02/16 Slow-Mag 71.5mg 143 mg PO HS 05/06/16 08/02/16 Sodium Bicarbonate Tab 650 mg PO BID 05/06/16 08/02/16 Isosorbide Mononitrate ER [Imdur] 30 mg PO QAM 06/24/16 08/02/16 Calcium Acetate [PhosLo] 667 mg PO HS 08/02/16 08/02/16 Previous Rx's Medication Instructions Recorded Nitroglycerin Sl Tabs [Nitrostat] 0.4 mg SUBLINGUAL Q5M PRN #25 tab 11/19/14 Montelukast [Singulair] 10 mg PO HS #30 tab 06/30/16 Hydrocortisone Suppository 25 mg RECTAL DAILY #30 supp 08/07/16 [Anusol-Hc] Midodrine [ProAmatine] 10 mg PO AC-TID #90 tab 08/07/16 Allergies Allergy/AdvReac Type Severity Reaction Status Date / Time adhesive Allergy Rash/Hives Verified 10/02/16 11:15 cephalexin monohydrate Allergy Rash/Hives Verified 10/02/16 11:15 [From Keflex] hydromorphone HCl Allergy Hallucinati Verified 10/02/16 11:15 [From Dilaudid] ons iodine Allergy Rash/Hives Verified 10/02/16 11:15 Penicillins Allergy Unknown Verified 10/02/16 11:15 Childhood povidone-iodine Allergy Unknown Verified 10/02/16 11:15 [From Betadine] shellfish derived [Shrimp] Allergy Rash/Hives Verified 10/02/16 11:15 soap [From Betadine] Allergy Unknown Verified 10/02/16 11:15 fentanyl AdvReac Unknown Verified 10/02/16 11:15 hydrocodone bitartrate AdvReac Itching Verified 10/02/16 11:15 [From Vicodin] midazolam [From Versed] AdvReac Unknown Verified 10/02/16 11:15 morphine AdvReac Hallucinati Verified 10/02/16 11:15 ons tramadol AdvReac Itching Verified 10/02/16 11:15 artifical sweetener AdvReac Unknown Uncoded 08/02/16 06:43 Review of Systems ROS Statement: Those systems with pertinent positive or pertinent negative responses have been documented in the HPI. ROS Other: All systems not noted in ROS Statement are negative. Past Medical History Past Medical History: Coronary Artery Disease (CAD), Diabetes Mellitus, Hyperlipidemia, Hypertension, Myocardial Infarction (PA), Renal Disease, Sleep Apnea/CPAP/BIPAP, Thyroid Disorder Additional Past Medical History / Comment(s): MIs, IDDM type II, GOUT, ANEMIA, MITRAL,TRICUSID REGURGITATION, esrd gets hemodialysis [id number]., recent UTI , bronchitis, hypothyroid, no CPAP use. Last Myocardial Infarction Date:: 07/03/16 History of Any Multi-Drug Resistant Organisms: None Reported Past Surgical History: Coronary Bypass/CABG, Heart Catheterization, Heart Catheterization With Stent Additional Past Surgical History / Comment(s): 07/05/16 cardiac cath-tx medially, PREVIOUS STENTS TO CIRC AND LAD-HAD REOCCLUSION THEN HAD 3 VESSEL CABG, PTCAs, AV fistula R arm, colonoscopy-normal. Past Anesthesia/Blood Transfusion Reactions: Previous Problems w/ Anesthesia Additional Past Anesthesia/Blood Transfusion Reaction / Comment(s): POST OP DELIRIUM/AGITATION/PSYCHOSIS-RESOLVED. Pt states she had a problem with hypotension last time she received versed. Date of Last Stent Placement:: 11/14/2014 Past Psychological History: Depression Additional Psychological History / Comment(s): Pt lives with her spouse. She has a wheeled walker or a wheelchair she uses prn. 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 Her spouse drives. They have been 39 yrs. Smoking Status: Never smoker Past Alcohol Use History: None Reported Past Drug Use History: None Reported - Past Family History Mother Family Medical History: Diabetes Mellitus, Myocardial Infarction (PA), Thyroid Disorder Additional Family Medical History / Comment(s): CABG, gout, hypothyroid Sister(s) Family Medical History: Diabetes Mellitus, Thyroid Disorder Father Family Medical History: Diabetes Mellitus General Exam General appearance: alert, in no apparent distress Head exam: Present: atraumatic, normocephalic, normal inspection Eye exam: Present: normal appearance, PERRL, EOMI. Absent: scleral icterus, conjunctival injection, periorbital swelling ENT exam: Present: normal exam, mucous membranes moist Neck exam: Present: normal inspection. Absent: tenderness, meningismus, lymphadenopathy Respiratory exam: Present: normal lung sounds bilaterally. Absent: respiratory distress, wheezes, rales, rhonchi, stridor Cardiovascular Exam: Present: regular rate, normal rhythm, normal heart sounds. Absent: systolic murmur, diastolic murmur, rubs, gallop, clicks GI/Abdominal exam: Present: soft, normal bowel sounds. Absent: distended, tenderness, guarding, rebound, rigid Extremities exam: Present: normal inspection, full ROM, normal capillary refill. Absent: tenderness, pedal edema, joint swelling, calf tenderness Back exam: Present: normal inspection Neurological exam: Present: alert, oriented X3, CN II-XII intact Psychiatric exam: Present: normal affect, normal mood Skin exam: Present: warm, dry, intact, normal color. Absent: rash Course Vital Signs 10/02/16 10/02/16 09:43 10:23 Temperature 97.6 F Pulse Rate 91 66 Respiratory 18 16 Rate Blood Pressure 114/62 O2 Sat by Pulse 98 Oximetry - Reevaluation(s) Reevaluation #1: 10/02/16 11:30 Issues are remains stable at this time, blood pressure is normal EKG Findings - EKG Comments: EKG Findings:: EKG shows normal sinus rhythm rate of 90, [place] 140, QRS 108, QTC 489 Medical Decision Making - Medical Decision Making 61 female ER for evaluation of weakness, bradycardia. Dizziness shortness of breath with exertion. During dialysis patient had heart rate in the 40s at that time she felt very near syncopal flexures and the passout, no EKG was obtained. Patient was sent to emergency room for evaluation. Patient was initially bradycardic with some heart rate has been remained elevated. The patient states she still does not feel well. No change in medications. No new medications. - Lab Data Result diagrams: 10/02/16 10:30 10/02/16 10:30 Lab Results 10/02/16 10/02/16 10/02/16 Range/Units 10:30 10:30 10:30 WBC 8.0 (3.8-10.6) k/uL RBC 3.73 L (3.80-5.40) m/uL Hgb 11.2 L (11.4-16.0) gm/dL Hct 35.0 (34.0-46.0) % MCV 93.8 (80.0-100.0) fL MCH 29.9 (25.0-35.0) pg MCHC 31.9 (31.0-37.0) g/dL RDW 18.5 H (11.5-15.5) % Plt Count 140 L (150-450) k/uL Neutrophils % 76 % Lymphocytes % 17 % Monocytes % 3 % Eosinophils % 3 % Basophils % 0 % Neutrophils # 6.0 (1.3-7.7) k/uL Lymphocytes # 1.3 (1.0-4.8) k/uL Monocytes # 0.2 (0-1.0) k/uL Eosinophils # 0.3 (0-0.7) k/uL Basophils # 0.0 (0-0.2) k/uL Hypochromasia Slight Poikilocytosis Slight Anisocytosis Slight Macrocytosis Slight PT (9.0-12.0) sec INR (<1.1) APTT (22.0-30.0) sec Sodium 141 (137-145) mmol/L Potassium 4.2 (3.5-5.1) mmol/L Chloride 100 (98-107) mmol/L Carbon Dioxide 27 (22-30) mmol/L Anion Gap 14 mmol/L BUN 36 H (7-17) mg/dL Creatinine 5.50 H* (0.52-1.04) mg/dL Est GFR (MDRD) Af Amer 10 (>60 ml/min/1.73 sqM) Est GFR (MDRD) Non-Af 8 (>60 ml/min/1.73 sqM) Glucose 176 H (74-99) mg/dL Calcium 9.0 (8.4-10.2) mg/dL Phosphorus 3.5 (2.5-4.5) mg/dL Magnesium 1.7 (1.6-2.3) mg/dL Total Bilirubin 0.7 (0.2-1.3) mg/dL AST 22 (14-36) U/L ALT 18 (9-52) U/L Alkaline Phosphatase 187 H (38-126) U/L Total Creatine Kinase 34 (30-135) U/L CK-MB (CK-2) 1.2 (0.0-2.4) ng/mL CK-MB (CK-2) Rel Index 3.5 Troponin I 0.045 H* (0.000-0.034) ng/mL Total Protein 6.7 (6.3-8.2) g/dL Albumin 3.9 (3.5-5.0) g/dL 10/02/16 Range/Units 10:30 WBC (3.8-10.6) k/uL RBC (3.80-5.40) m/uL Hgb (11.4-16.0) gm/dL Hct (34.0-46.0) % MCV (80.0-100.0) fL MCH (25.0-35.0) pg MCHC (31.0-37.0) g/dL RDW (11.5-15.5) % Plt Count (150-450) k/uL Neutrophils % % Lymphocytes % % Monocytes % % Eosinophils % % Basophils % % Neutrophils # (1.3-7.7) k/uL Lymphocytes # (1.0-4.8) k/uL Monocytes # (0-1.0) k/uL Eosinophils # (0-0.7) k/uL Basophils # (0-0.2) k/uL Hypochromasia Poikilocytosis Anisocytosis Macrocytosis PT 10.3 (9.0-12.0) sec INR 1.0 (<1.1) APTT 24.1 (22.0-30.0) sec Sodium (137-145) mmol/L Potassium (3.5-5.1) mmol/L Chloride (98-107) mmol/L Carbon Dioxide (22-30) mmol/L Anion Gap mmol/L BUN (7-17) mg/dL Creatinine (0.52-1.04) mg/dL Est GFR (MDRD) Af Amer (>60 ml/min/1.73 sqM) Est GFR (MDRD) Non-Af (>60 ml/min/1.73 sqM) Glucose (74-99) mg/dL Calcium (8.4-10.2) mg/dL Phosphorus (2.5-4.5) mg/dL Magnesium (1.6-2.3) mg/dL Total Bilirubin (0.2-1.3) mg/dL AST (14-36) U/L ALT (9-52) U/L Alkaline Phosphatase (38-126) U/L Total Creatine Kinase (30-135) U/L CK-MB (CK-2) (0.0-2.4) ng/mL CK-MB (CK-2) Rel Index Troponin I (0.000-0.034) ng/mL Total Protein (6.3-8.2) g/dL Albumin (3.5-5.0) g/dL Critical Care Time Critical Care Time: Yes Total Critical Care Time: 31 Disposition Clinical Impression: Symptomatic bradycardia, Weakness, Elevated troponin Disposition: ADMITTED IP TO THIS [facility] Condition: Undetermined Referrals: Kyle Campos MD [Primary Care Provider] - 1-2 days
[2016-10-02 10:58] LABS: Anisocytosis Slight; Basophils % (A) 0 %; CH 30.2; CHCM 32.4; Eosinophils # (A) 0.3 k/uL (0-0.7); Eosinophils % (A) 3 %; HDW 3.45; HGB 11.2 gm/dL (11.4-16.0); Hypochromasia Slight; Luc # (Auto) 0.11; Luc % (Auto) 1; Lymphocytes # (A) 1.3 k/uL (1.0-4.8); Lymphocytes % (A) 17 %; MCH 29.9 pg (25.0-35.0); MCHC 31.9 g/dL (31.0-37.0); MCV 93.8 fL (80.0-100.0); Macrocytosis Slight; Mean Platelet Volume 8.6; Monocytes # (A) 0.2 k/uL (0-1.0); Monocytes % (A) 3 %; Neutrophils % (A) 76 %; Poikilocytosis Slight; RBC 3.73 m/uL (3.80-5.40); RDW 18.5 % (11.5-15.5); WBC (Perox) 7.62
[2016-10-02 11:00] LABS: Partial Thromboplastin Time 24.1 sec (22.0-30.0); Prothrombin Time 10.3 sec (9.0-12.0)
[2016-10-02 11:02] LABS: Magnesium 1.7 mg/dL (1.6-2.3); Phosphorous 3.5 mg/dL (2.5-4.5); Potassium 4.2 mmol/L (3.5-5.1); Total Bilirubin 0.7 mg/dL (0.2-1.3); Total Protein 6.7 g/dL (6.3-8.2)
[2016-10-02 11:17] LABS: Creatine Kinase MB 1.2 ng/mL (0.0-2.4)
[2016-10-02 11:20] LABS: Troponin I 0.045 ng/mL (0.000-0.034)
[2016-10-02] MEDS ORDERED: HEPARIN SODIUM,PORCINE 5,000 UNIT/ML 1 ML VIAL IV ONE (11:27)
[2016-10-02] MEDS ORDERED: ASPIRIN 81 MG CHEW PO STA (11:27)
[2016-10-02] MEDS ORDERED: NITROGLYCERIN SL TABS 0.4 MG TAB SUBLINGUAL PRN ×2 (11:27→12:55)
[2016-10-02] MEDS ORDERED: HEPARIN SODIUM,PORCINE/D5W PMX 25,000 UNIT in DEXTROSE/WATER 1 500ML.BAG IV SCH (11:30)
[2016-10-02] MEDS ORDERED: LOPERAMIDE 2 MG CAP PO PRN (12:55)
[2016-10-02] MEDS ORDERED: [UNRECOGNIZED DRUG - OTHER] PO PRN (12:55)
[2016-10-02] MEDS ORDERED: ACETAMINOPHEN TAB 325 MG TAB PO PRN (12:55)
--- NOTE | 2016-10-02 13:04 | P.HPIM ---
History of Present Illness H&P Date: 10/02/16 Chief Complaint: Low heart rate This is a 61-year-old female with a known history of coronary artery disease with cardiac stents, myocardial infarction, diabetes mellitus, end-stage renal disease on hemodialysis Sunday, hyperlipidemia and hypothyroidism. Patient was at dialysis today doing her routine treatment and was told that her heart rate was low and in the 40s and was told to go to the emergency room. Patient also had been reviewed in [place] visiting her daughter last week was having dialysis down there and was told that her heart rate was low as well. She presents to the emergency room for evaluation. EKG has shown normal sinus rhythm with a heart rate in the 90s there was nonspecific ST-T wave changes. There is a troponin of 0.05 she was started on IV heparin. She will be admitted to the sixth floor and cardiology has been consulted. Patient also notes that her heart rate is low just before she goes to bed. She's had no new changes of medications and denies being on any beta blockers. She said she was on as a beta luis about a month ago and was taken off of it due to hypotension. Patient does admit to being more fatigued and having some dizziness and lightheadedness. She also noted to have some shortness of breath denies any cough fever or chills or sweats. Denies any nausea or vomiting. Denies any bowel movement changes or urinary symptoms. Review of Systems Please refer to HPI otherwise unremarkable Past Medical History Past Medical History: Coronary Artery Disease (CAD), Diabetes Mellitus, Hyperlipidemia, Hypertension, Myocardial Infarction (SD), Renal Disease, Thyroid Disorder Additional Past Medical History / Comment(s): MIs, IDDM type II, GOUT R foot, diabetic neuropathy bilateral feet and now "all over", chronic ANEMIA, MITRAL and TRICUSID REGURGITATION, esrd gets hemodialysis [id number]., UTIs, bronchitis, hypoparathyroid, wears O2 at 2L/NC during dialysis only, hemorrhoids -have caused anemia in past, hyperkalemia Last Myocardial Infarction Date:: 05/08/16 History of Any Multi-Drug Resistant Organisms: None Reported Past Surgical History: Coronary Bypass/CABG, Heart Catheterization, Heart Catheterization With Stent Additional Past Surgical History / Comment(s): 07/05/16 cardiac cath-tx medially, PREVIOUS STENTS TO CIRC AND LAD-HAD REOCCLUSION THEN HAD 3 VESSEL CABG, PTCAs, AV fistula R arm, colonoscopy-normal, bilateral cataract removal with lens implants, bilateral eye laser sx to remove fluid. Past Anesthesia/Blood Transfusion Reactions: Previous Problems w/ Anesthesia Additional Past Anesthesia/Blood Transfusion Reaction / Comment(s): POST OP DELIRIUM/AGITATION/PSYCHOSIS-RESOLVED. Pt states she had a problem with hypotension last time she received versed. Date of Last Stent Placement:: 05/08/16 Past Psychological History: Depression Additional Psychological History / Comment(s): Pt lives with her spouse. Pt no longer uses her walker of her wheelchair-she is ambulatory. 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 Her spouse drives. Spouse manages her medications. They have been 39 yrs. She states her depression has improved with Zoloft and she is going to her daughters and spending time with her grandchildren. Smoking Status: Never smoker Past Alcohol Use History: None Reported Past Drug Use History: None Reported - Past Family History Mother Family Medical History: Diabetes Mellitus, Myocardial Infarction (SD), Thyroid Disorder Additional Family Medical History / Comment(s): CABG, gout, hypothyroid. Mother is 80yrs old. Sister(s) Family Medical History: Diabetes Mellitus, Thyroid Disorder Father Family Medical History: Diabetes Mellitus, Myocardial Infarction (SD) Additional Family Medical History / Comment(s): Father at the age of 67yrs of a SD Medications and Allergies Home Medications Medication Instructions Recorded Confirmed Type Allopurinol [Zyloprim] 100 mg PO DAILY@0900 11/15/14 10/02/16 History Gabapentin [Neurontin] 100 mg PO BID@0900,209911/15/14 10/02/16 History Omeprazole [PriLOSEC] 20 mg PO BID@0900,209901/31/15 10/02/16 History Insulin Glargine [Lantus] 30 unit SQ HS 03/03/15 10/02/16 History Loperamide [Imodium] 2 mg PO QID PRN 03/03/15 10/02/16 History Mv-Min/Vit C/Glu/Karla HCl/Hc124 1 tab PO QID PRN 03/03/15 10/02/16 History [Airborne Tablet Chewable] Sertraline [Zoloft] 50 mg PO DAILY 03/03/15 10/02/16 History Atorvastatin [Lipitor] 40 mg PO HS 04/23/15 10/02/16 History Clopidogrel [Plavix] 75 mg PO DAILY 04/23/15 10/02/16 History Aspirin [Adult Low Dose Aspirin EC] 81 mg PO HS 05/06/16 10/02/16 History Calcium Acetate [PhosLo] 2,001 mg PO AC-TID 05/06/16 10/02/16 History Cinacalcet HCl [Sensipar] 30 mg PO HS 05/06/16 10/02/16 History Furosemide [Lasix] 80 mg PO BID 05/06/16 10/02/16 History Insulin Aspart [NovoLOG] See Protocol SQ AC-TID 05/06/16 10/02/16 History Slow-Mag 71.5mg 143 mg PO BID 05/06/16 10/02/16 History Sodium Bicarbonate Tab 650 mg PO BID 05/06/16 10/02/16 History Isosorbide Mononitrate ER [Imdur] 30 mg PO QAM 06/24/16 10/02/16 History Calcium Acetate [PhosLo] 667 mg PO HS 08/02/16 10/02/16 History Acetaminophen Tab [Tylenol Tab] 650 mg PO Q6HR PRN 10/02/16 10/02/16 History INSULIN LISPRO (humaLOG) [HumaLOG] See Protocol SQ TID 10/02/16 10/02/16 History Allergies Allergy/AdvReac Type Severity Reaction Status Date / Time adhesive Allergy Rash/Hives Verified 10/02/16 11:15 cephalexin monohydrate Allergy Rash/Hives Verified 10/02/16 11:15 [From Keflex] hydromorphone HCl Allergy Hallucinati Verified 10/02/16 11:15 [From Dilaudid] ons iodine Allergy Rash/Hives Verified 10/02/16 11:15 Penicillins Allergy Unknown Verified 10/02/16 11:15 Childhood povidone-iodine Allergy Unknown Verified 10/02/16 11:15 [From Betadine] shellfish derived [Shrimp] Allergy Rash/Hives Verified 10/02/16 11:15 soap [From Betadine] Allergy Unknown Verified 10/02/16 11:15 fentanyl AdvReac Unknown Verified 10/02/16 11:15 hydrocodone bitartrate AdvReac Itching Verified 10/02/16 11:15 [From Vicodin] midazolam [From Versed] AdvReac Unknown Verified 10/02/16 11:15 morphine AdvReac Hallucinati Verified 10/02/16 11:15 ons tramadol AdvReac Itching Verified 10/02/16 11:15 artifical sweetener AdvReac Unknown Uncoded 08/02/16 06:43 Physical Exam Head normocephalic Neck supple Lungs clear to auscultation bilaterally no wheezing or crackles Heart regular rate and rhythm S1-S2, no rub or gallop Abdomen is soft nontender nondistended positive bowel sounds no hepatosplenomegaly Extremities no edema Neuro alert and orientated to 3 Results CBC & Chem 7: 10/02/16 10:30 10/02/16 10:30 Thrombosis Risk Factor Assmnt - Choose All That Apply Any of the Below Risk Factors Present?: Yes Each Factor Represents 1 point: Age 41-60 years, Obesity (BMI >25) Other Risk Factors: No Other congenital or acquired thrombophilia - If yes, enter type in comment: No Thrombosis Risk Factor Assessment Total Risk Factor Score: 2 Thrombosis Risk Factor Assessment Level: Low Risk Assessment and Plan Plan: 1. Symptomatic sinus bradycardia with dizziness and fatigue in the outpatient setting during dialysis. Patient reports a heart rate in the 40s. She'll be admitted to the sixth floor and placed on telemetry monitoring. Cardiology will be consulted. EKG shows sinus rhythm with a heart rate in the 90s. 2. Chest pressure with shortness of breath on exertion: First troponin 0.045. Patient currently on IV heparin. Cardiology is consulted. Check chest x-ray 3. End-stage renal disease: Hemodialysis Sunday consult nephrology 4. Diabetes mellitus type 2: Resume Lantus and sliding scale coverage and monitor 5. History of coronary disease with previous cardiac stents and myocardial infarction 6. Hypothyroidism resume Synthroid 7. Hyperlipidemia continue statin GI prophylaxis Protonix and DVT prophylaxis IV heparin Time with Patient: Greater than 30 (Greater than 50% of the total time spent in counseling and coordination of care. I performed an examination of the patient and discussed their management with the physician Clerk Stenographer. I have reviewed the Physician Clerk Stenographer's notes and agree with the documented findings and plan of care)
--- NOTE | 2016-10-02 15:16 | XR ---
EXAMINATION TYPE: XR chest 2V DATE OF EXAM: 10/02/2016 1:26 PM COMPARISON: 08/23/2016 TECHNIQUE: PA and lateral views submitted. HISTORY: Shortness of breath FINDINGS: Cardiomegaly and postoperative changes seen. No overt failure or pneumothorax. Small left pleural eff usion seen. IMPRESSION: 1. Cardiomegaly and small left pleural effusion.
[2016-10-02] MEDS: ISOSORBIDE MONONITRATE ER 30 MG TAB.ER.24H PO SCH (16:33)
[2016-10-02 16:47] LABS: Glucose,Whole Blood 277 mg/dL (75-99)
[2016-10-02] MEDS: MIDODRINE 5 MG TAB PO SCH (17:26)
[2016-10-02] MEDS: INSULIN LISPRO (humaLOG) 300 UNIT/3 ML VIAL SQ SCH ×2 (17:27→20:37)
[2016-10-02] MEDS: CALCIUM ACETATE 667 MG CAP PO SCH (17:27)
[2016-10-02 17:39] LABS: Troponin I 0.031 ng/mL (0.000-0.034)
[2016-10-02] MEDS ORDERED: HEPARIN SODIUM,PORCINE 5,000 UNIT/ML 1 ML VIAL IV PRN (20:21)
[2016-10-02 20:24] LABS: Hemoglobin A1C 7.2 % (4.2-6.1)
[2016-10-02] MEDS: FUROSEMIDE 80 MG TAB PO SCH (20:35)
[2016-10-02 20:36] LABS: Glucose,Whole Blood 253 mg/dL (75-99)
[2016-10-02] MEDS: GABAPENTIN 100 MG CAP PO SCH (20:36)
[2016-10-02] MEDS: SODIUM BICARBONATE TAB 650 MG TAB PO SCH (20:36)
[2016-10-02] MEDS: MAGNESIUM OXIDE 400 MG TAB PO SCH (20:36)
[2016-10-02] MEDS ORDERED: MONTELUKAST 10 MG TAB PO SCH (21:00)
[2016-10-02] MEDS ORDERED: CALCIUM ACETATE 667 MG CAP PO SCH (21:00)
[2016-10-02] MEDS ORDERED: SERTRALINE 50 MG TAB PO SCH (21:00)
[2016-10-02] MEDS ORDERED: ATORVASTATIN 80 MG TAB PO SCH (21:00)
[2016-10-02] MEDS ORDERED: CINACALCET 30 MG TAB PO SCH (21:00)
[2016-10-02] MEDS ORDERED: CLOPIDOGREL 75 MG TAB PO SCH (21:00)
[2016-10-02] MEDS ORDERED: INSULIN GLARGINE 100 UNIT/ML 10 ML VIAL SQ SCH (21:00)
[2016-10-03 02:04] VITALS: RESP 18
[2016-10-03 02:51] LABS: Creatine Kinase MB 1.3 ng/mL (0.0-2.4); Troponin I 0.033 ng/mL (0.000-0.034)
[2016-10-03 05:43] LABS: Glucose,Whole Blood 162 mg/dL (75-99)
[2016-10-03 06:20] LABS: Mean Platelet Volume 8.3
[2016-10-03] MEDS: MIDODRINE 5 MG TAB PO SCH ×2 (06:39→12:44)
[2016-10-03] MEDS: INSULIN LISPRO (humaLOG) 300 UNIT/3 ML VIAL SQ SCH ×2 (06:39→12:45)
[2016-10-03] MEDS ORDERED: PANTOPRAZOLE 40 MG TABLET PO SCH (07:30)
[2016-10-03] MEDS ORDERED: CLOPIDOGREL 75 MG TAB PO SCH (09:00)
[2016-10-03] MEDS ORDERED: ASPIRIN 325 MG TAB PO SCH (09:00)
[2016-10-03] MEDS ORDERED: HYDROCORTISONE SUPPOSITORY 25 MG SUPP RECTAL SCH (09:00)
[2016-10-03] MEDS ORDERED: SERTRALINE 50 MG TAB PO SCH (09:00)
[2016-10-03] MEDS ORDERED: ALLOPURINOL 100 MG TAB PO SCH (09:00)
[2016-10-03] MEDS ORDERED: ATORVASTATIN 80 MG TAB PO SCH (09:00)
[2016-10-03 09:01] LABS: Cholesterol 130 mg/dL (<200); HDL Cholesterol 45 mg/dL (40-60); Triglycerides 225 mg/dL (<150)
[2016-10-03] MEDS: ISOSORBIDE MONONITRATE ER 30 MG TAB.ER.24H PO SCH (09:21)
[2016-10-03] MEDS: FUROSEMIDE 80 MG TAB PO SCH (09:21)
[2016-10-03] MEDS: CALCIUM ACETATE 667 MG CAP PO SCH ×2 (09:21→12:44)
[2016-10-03] MEDS: GABAPENTIN 100 MG CAP PO SCH (09:21)
[2016-10-03] MEDS: SODIUM BICARBONATE TAB 650 MG TAB PO SCH (09:21)
[2016-10-03] MEDS: MAGNESIUM OXIDE 400 MG TAB PO SCH (09:21)
--- NOTE | 2016-10-03 09:26 | P.NPCON ---
History of Present Illness - Reason for Consult end stage renal disease - History of Present Illness Reason for consultation: End-stage renal disease History of present illness: Patient is a 61-year-old female seen in renal consultation for end- stage renal disease. She is maintained on hemodialysis on a Sunday schedule. Patient went for hemodialysis yesterday and was noted to have a heart rate in the 40s. She only received 2 hours of hemodialysis and was subsequently sent over to the hospital. In the hospital her heart rate has been normal. She is not on any beta blockers. She does admit to feeling quite dizzy. No vomiting or diarrhea. Denies chest pain. Her blood pressure does tend to run low and she is maintained on Midodrine. She is currently on a heparin drip and cardiology evaluation is pending. She does have a history of coronary artery disease status post CABG as well as stent placement. Denies vomiting or diarrhea. No fever or chills. Vital signs are stable. General: The patient appeared well nourished and normally developed. HEENT: Head exam is unremarkable. Neck is without jugular venous distension. LUNGS: Lungs are clear to auscultation and percussion. Breath sounds decreased. HEART: Rate and Rhythm are regular. First and second heart sounds normal. No murmurs, rubs or gallops. ABDOMEN: Abdominal exam reveals normal bowel sounds. Non-tender and non- distended. No evidence of peritonitis. EXTREMITITES: No clubbing, cyanosis, or edema. Past Medical History Past Medical History: Coronary Artery Disease (CAD), Diabetes Mellitus, Hyperlipidemia, Hypertension, Myocardial Infarction ([place]), Renal Disease, Thyroid Disorder Additional Past Medical History / Comment(s): MIs, IDDM type II, GOUT R foot, diabetic neuropathy bilateral feet and now "all over", chronic ANEMIA, MITRAL and TRICUSID REGURGITATION, esrd gets hemodialysis [id number]., UTIs, bronchitis, hypoparathyroid, wears O2 at 2L/NC during dialysis only, hemorrhoids -have caused anemia in past, hyperkalemia Last Myocardial Infarction Date:: 05/08/16 History of Any Multi-Drug Resistant Organisms: None Reported Past Surgical History: Coronary Bypass/CABG, Heart Catheterization, Heart Catheterization With Stent Additional Past Surgical History / Comment(s): 07/05/16 cardiac cath-tx medially, PREVIOUS STENTS TO CIRC AND LAD-HAD REOCCLUSION THEN HAD 3 VESSEL CABG, PTCAs, AV fistula R arm, colonoscopy-normal, bilateral cataract removal with lens implants, bilateral eye laser sx to remove fluid. Past Anesthesia/Blood Transfusion Reactions: Previous Problems w/ Anesthesia Additional Past Anesthesia/Blood Transfusion Reaction / Comment(s): POST OP DELIRIUM/AGITATION/PSYCHOSIS-RESOLVED. Pt states she had a problem with hypotension last time she received versed. Date of Last Stent Placement:: 05/08/16 Past Psychological History: Depression Additional Psychological History / Comment(s): Pt lives with her spouse. Pt no longer uses her walker of her wheelchair-she is ambulatory. Her [employer] driver's license lapsed while hospitalized and she has not gotten around to getting another one. Her spouse drives. Spouse manages her medications. They have been 39 yrs. She states her depression has improved with Zoloft and she is going to her daughters and spending time with her grandchildren. Smoking Status: Never smoker Past Alcohol Use History: None Reported Past Drug Use History: None Reported - Past Family History Mother Family Medical History: Diabetes Mellitus, Myocardial Infarction ([place]), Thyroid Disorder Additional Family Medical History / Comment(s): CABG, gout, hypothyroid. Mother is 80yrs old. Sister(s) Family Medical History: Diabetes Mellitus, Thyroid Disorder Father Family Medical History: Diabetes Mellitus, Myocardial Infarction ([place]) Additional Family Medical History / Comment(s): Father at the age of 67yrs of a [place] Medications and Allergies Home Medications Medication Instructions Recorded Confirmed Type Allopurinol [Zyloprim] 100 mg PO DAILY@0900 11/15/14 10/02/16 History Gabapentin [Neurontin] 100 mg PO BID@0900,209911/15/14 10/02/16 History Omeprazole [PriLOSEC] 20 mg PO BID@0900,209901/31/15 10/02/16 History Insulin Glargine [Lantus] 30 unit SQ HS 03/03/15 10/02/16 History Loperamide [Imodium] 2 mg PO QID PRN 03/03/15 10/02/16 History Mv-Min/Vit C/Glu/Karla HCl/Hc124 1 tab PO QID PRN 03/03/15 10/02/16 History [Airborne Tablet Chewable] Sertraline [Zoloft] 50 mg PO DAILY 03/03/15 10/02/16 History Atorvastatin [Lipitor] 40 mg PO HS 04/23/15 10/02/16 History Clopidogrel [Plavix] 75 mg PO DAILY 04/23/15 10/02/16 History Aspirin [Adult Low Dose Aspirin EC] 81 mg PO HS 05/06/16 10/02/16 History Calcium Acetate [PhosLo] 2,001 mg PO AC-TID 05/06/16 10/02/16 History Cinacalcet HCl [Sensipar] 30 mg PO HS 05/06/16 10/02/16 History Furosemide [Lasix] 80 mg PO BID 05/06/16 10/02/16 History Insulin Aspart [NovoLOG] See Protocol SQ AC-TID 05/06/16 10/02/16 History Slow-Mag 71.5mg 143 mg PO BID 05/06/16 10/02/16 History Sodium Bicarbonate Tab 650 mg PO BID 05/06/16 10/02/16 History Isosorbide Mononitrate ER [Imdur] 30 mg PO QAM 06/24/16 10/02/16 History Calcium Acetate [PhosLo] 667 mg PO HS 08/02/16 10/02/16 History Acetaminophen Tab [Tylenol Tab] 650 mg PO Q6HR PRN 10/02/16 10/02/16 History INSULIN LISPRO (humaLOG) [HumaLOG] See Protocol SQ TID 10/02/16 10/02/16 History Allergies Allergy/AdvReac Type Severity Reaction Status Date / Time adhesive Allergy Rash/Hives Verified 10/02/16 11:15 cephalexin monohydrate Allergy Rash/Hives Verified 10/02/16 11:15 [From Keflex] hydromorphone HCl Allergy Hallucinati Verified 10/02/16 11:15 [From Dilaudid] ons iodine Allergy Rash/Hives Verified 10/02/16 11:15 Penicillins Allergy Unknown Verified 10/02/16 11:15 Childhood povidone-iodine Allergy Unknown Verified 10/02/16 11:15 [From Betadine] shellfish derived [Shrimp] Allergy Rash/Hives Verified 10/02/16 11:15 soap [From Betadine] Allergy Unknown Verified 10/02/16 11:15 fentanyl AdvReac Unknown Verified 10/02/16 11:15 hydrocodone bitartrate AdvReac Itching Verified 10/02/16 11:15 [From Vicodin] midazolam [From Versed] AdvReac Unknown Verified 10/02/16 11:15 morphine AdvReac Hallucinati Verified 10/02/16 11:15 ons tramadol AdvReac Itching Verified 10/02/16 11:15 artifical sweetener AdvReac Unknown Uncoded 08/02/16 06:43 Physical Exam Vitals: Vital Signs Temp Pulse Pulse Resp BP BP Pulse Ox 10/03/16 02:53 81 18 10/03/16 02:52 97.5 F L 81 18 109/58 94 L 10/03/16 00:00 97.5 F L 87 18 106/56 98 10/02/16 20:00 97.5 F L 82 16 114/57 96 10/02/16 16:00 97.8 F 88 18 98/68 98 10/02/16 13:45 87 16 130/72 98 10/02/16 13:07 97.7 F 85 18 120/58 95 10/02/16 10:23 66 16 10/02/16 09:43 97.6 F 91 18 114/62 98 Intake and Output 10/02/16 10/03/16 10/03/16 22:59 06:59 14:59 Intake Total 885 0 284.192 Output Total 200 Balance 885 -200 284.192 Intake: Intake, IV Titration 145 284.192 Amount Heparin Sodium,Porcine/ 145 284.192 D5w Pmx 25,000 unit In Dextrose/Water 1 500ml. bag @ 10.5 UNITS/KG/HR 19 .95 mls/hr IV .Q24H [facility] Rx#:[id number] Oral 740 0 Output: Urine 200 Other: Voiding Method Toilet Toilet Weight 92.5 kg Results - Lab Results Most recent lab results Calcium 9.0 mg/dL (8.4-10.2) 10/02/16 10:30 Phosphorus 3.5 mg/dL (2.5-4.5) 10/02/16 10:30 Magnesium 1.7 mg/dL (1.6-2.3) 10/02/16 10:30 10/03/16 06:02 10/02/16 10:30 Assessment and Plan Plan: Assessment: #1. End-stage renal disease maintained on hemodialysis on a Sunday schedule. #2. Bradycardia with dizziness. #3. History of coronary artery disease status post CABG and stent placement. #4. 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 #5. Chronic hypotension maintained on Midodrine. Plan: Hemodialysis today for 2 hours. Next full treatment tomorrow. Check phosphorus level. Maintain PhosLo with meals. Await cardiology recommendations. If cleared by cardiology, she can be discharged home later today. Thank you for the consultation. I will continue to follow the patient with you during her hospital stay.
[2016-10-03 09:27] VITALS: TEMP 97.6
--- NOTE | 2016-10-03 10:42 | P.CRDCN ---
<Samantha Dueñas E - Last Filed: 10/03/16 10:08> History of Present Illness Consult date: 10/03/16 Requesting physician: Kyle Campos Reason for Consult (text): Bradycardia Chief complaint: Bradycardia History of present illness: This is a 61-year-old female who follows with Dr. Rothman in the office. She has a known history of diabetes, hypertension, hyperlipidemia, orthostatic hypotension, on midodrine, family history of coronary artery disease , coronary artery disease with prior bypass surgery and multiple stent placements, end-stage renal disease on hemodialysis. Patient was apparently at her dialysis yesterday receiving treatment, it was noted that her heart rate went down into the 40s. She denies any overt dizziness or lightheadedness at that time, she did have mild chest pressure but no more than her usual. EMS was called, by the time they arrived her heart rate had a Santillan covered back to the 70s. EKG on arrival here showed normal sinus rhythm with no acute changes. Chest x-ray reveals cardiomegaly with a small left pleural effusion. Hemoglobin 11.2, WBC 8.0, platelet count 140. Calcium 4.2, BUN 36, creatinine 5.5. Troponins 0.045, 0.031, 0.033. TSH 1.5, free T4 0.7. Blood pressure on arrival here 114/60 with a heart rate in the 90s. At the time of my examination , patient feels well, denies any dizziness, no lightheadedness, no chest discomfort, breathing is stable. Past Medical History Past Medical History: Coronary Artery Disease (CAD), Diabetes Mellitus, Hyperlipidemia, Hypertension, Myocardial Infarction ([place]), Renal Disease, Thyroid Disorder Additional Past Medical History / Comment(s): MIs, IDDM type II, GOUT R foot, diabetic neuropathy bilateral feet and now "all over", chronic ANEMIA, MITRAL and TRICUSID REGURGITATION, esrd gets hemodialysis [id number]., UTIs, bronchitis, hypoparathyroid, wears O2 at 2L/NC during dialysis only, hemorrhoids -have caused anemia in past, hyperkalemia Last Myocardial Infarction Date:: 05/08/16 History of Any Multi-Drug Resistant Organisms: None Reported Past Surgical History: Coronary Bypass/CABG, Heart Catheterization, Heart Catheterization With Stent Additional Past Surgical History / Comment(s): 07/05/16 cardiac cath-tx medially, PREVIOUS STENTS TO CIRC AND LAD-HAD REOCCLUSION THEN HAD 3 VESSEL CABG, PTCAs, AV fistula R arm, colonoscopy-normal, bilateral cataract removal with lens implants, bilateral eye laser sx to remove fluid. Past Anesthesia/Blood Transfusion Reactions: Previous Problems w/ Anesthesia Additional Past Anesthesia/Blood Transfusion Reaction / Comment(s): POST OP DELIRIUM/AGITATION/PSYCHOSIS-RESOLVED. Pt states she had a problem with hypotension last time she received versed. Date of Last Stent Placement:: 05/08/16 Past Psychological History: Depression Additional Psychological History / Comment(s): Pt lives with her spouse. Pt no longer uses her walker of her wheelchair-she is ambulatory. 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 Her spouse drives. Spouse manages her medications. They have been 39 yrs. She states her depression has improved with Zoloft and she is going to her daughters and spending time with her grandchildren. Smoking Status: Never smoker Past Alcohol Use History: None Reported Past Drug Use History: None Reported - Past Family History Mother Family Medical History: Diabetes Mellitus, Myocardial Infarction ([place]), Thyroid Disorder Additional Family Medical History / Comment(s): CABG, gout, hypothyroid. Mother is 80yrs old. Sister(s) Family Medical History: Diabetes Mellitus, Thyroid Disorder Father Family Medical History: Diabetes Mellitus, Myocardial Infarction ([place]) Additional Family Medical History / Comment(s): Father at the age of 67yrs of a [place] Medications and Allergies Home Medications Medication Instructions Recorded Confirmed Type Allopurinol [Zyloprim] 100 mg PO DAILY@0900 11/15/14 10/02/16 History Gabapentin [Neurontin] 100 mg PO BID@0900,209911/15/14 10/02/16 History Omeprazole [PriLOSEC] 20 mg PO BID@0900,209901/31/15 10/02/16 History Insulin Glargine [Lantus] 30 unit SQ HS 03/03/15 10/02/16 History Loperamide [Imodium] 2 mg PO QID PRN 03/03/15 10/02/16 History Mv-Min/Vit C/Glu/Karla HCl/Hc124 1 tab PO QID PRN 03/03/15 10/02/16 History [Airborne Tablet Chewable] Sertraline [Zoloft] 50 mg PO DAILY 03/03/15 10/02/16 History Atorvastatin [Lipitor] 40 mg PO HS 04/23/15 10/02/16 History Clopidogrel [Plavix] 75 mg PO DAILY 04/23/15 10/02/16 History Aspirin [Adult Low Dose Aspirin EC] 81 mg PO HS 05/06/16 10/02/16 History Calcium Acetate [PhosLo] 2,001 mg PO AC-TID 05/06/16 10/02/16 History Cinacalcet HCl [Sensipar] 30 mg PO HS 05/06/16 10/02/16 History Furosemide [Lasix] 80 mg PO BID 05/06/16 10/02/16 History Insulin Aspart [NovoLOG] See Protocol SQ AC-TID 05/06/16 10/02/16 History Slow-Mag 71.5mg 143 mg PO BID 05/06/16 10/02/16 History Sodium Bicarbonate Tab 650 mg PO BID 05/06/16 10/02/16 History Isosorbide Mononitrate ER [Imdur] 30 mg PO QAM 06/24/16 10/02/16 History Calcium Acetate [PhosLo] 667 mg PO HS 08/02/16 10/02/16 History Acetaminophen Tab [Tylenol Tab] 650 mg PO Q6HR PRN 10/02/16 10/02/16 History INSULIN LISPRO (humaLOG) [HumaLOG] See Protocol SQ TID 10/02/16 10/02/16 History Allergies Allergy/AdvReac Type Severity Reaction Status Date / Time adhesive Allergy Rash/Hives Verified 10/02/16 11:15 cephalexin monohydrate Allergy Rash/Hives Verified 10/02/16 11:15 [From Keflex] hydromorphone HCl Allergy Hallucinati Verified 10/02/16 11:15 [From Dilaudid] ons iodine Allergy Rash/Hives Verified 10/02/16 11:15 Penicillins Allergy Unknown Verified 10/02/16 11:15 Childhood povidone-iodine Allergy Unknown Verified 10/02/16 11:15 [From Betadine] shellfish derived [Shrimp] Allergy Rash/Hives Verified 10/02/16 11:15 soap [From Betadine] Allergy Unknown Verified 10/02/16 11:15 fentanyl AdvReac Unknown Verified 10/02/16 11:15 hydrocodone bitartrate AdvReac Itching Verified 10/02/16 11:15 [From Vicodin] midazolam [From Versed] AdvReac Unknown Verified 10/02/16 11:15 morphine AdvReac Hallucinati Verified 10/02/16 11:15 ons tramadol AdvReac Itching Verified 10/02/16 11:15 artifical sweetener AdvReac Unknown Uncoded 08/02/16 06:43 Physical Exam Vitals: Vital Signs Temp Pulse Pulse Resp BP BP Pulse Ox 10/03/16 08:00 97.6 F 70 18 110/55 99 10/03/16 02:53 81 18 10/03/16 02:52 97.5 F L 81 18 109/58 94 L 10/03/16 00:00 97.5 F L 87 18 106/56 98 10/02/16 20:00 97.5 F L 82 16 114/57 96 10/02/16 16:00 97.8 F 88 18 98/68 98 10/02/16 13:45 87 16 130/72 98 10/02/16 13:07 97.7 F 85 18 120/58 95 10/02/16 10:23 66 16 Intake and Output 10/02/16 10/03/16 10/03/16 22:59 06:59 14:59 Intake Total 885 0 284.192 Output Total 200 Balance 885 -200 284.192 Intake: Intake, IV Titration 145 284.192 Amount Heparin Sodium,Porcine/ 145 284.192 D5w Pmx 25,000 unit In Dextrose/Water 1 500ml. bag @ 10.5 UNITS/KG/HR 19 .95 mls/hr IV .Q24H [facility] Rx#:[id number] Oral 740 0 Output: Urine 200 Other: Voiding Method Toilet Toilet Toilet Weight 92.5 kg PHYSICAL EXAMINATION: HEENT: Head is atraumatic, normocephalic. Pupils equal, round. Neck is supple. There is no elevated jugular venous pressure. HEART EXAMINATION: Heart S1 S2 1 systolic ejection murmur is heard. CHEST EXAMINATION: Lungs are clear to auscultation and precussion. No chest wall tenderness is noted on palpation or with deep breathing. ABDOMEN: Soft, nontender. Bowel sounds are heard. No organomegaly noted. EXTREMITIES: 2+ peripheral pulses with no evidence of peripheral edema and no calf tenderness noted. NEUROLOGIC patient is awake, alert and oriented -3. . Results 10/03/16 06:02 10/02/16 10:30 Cardiac Enzymes 10/02/16 10/02/16 10/02/16 Range/Units 10:30 10:30 16:57 AST 22 (14-36) U/L CK-MB (CK-2) 1.2 1.0 (0.0-2.4) ng/mL Troponin I 0.045 H* 0.031 (0.000-0.034) ng/mL 10/03/16 Range/Units 01:31 AST (14-36) U/L CK-MB (CK-2) 1.3 (0.0-2.4) ng/mL Troponin I 0.033 (0.000-0.034) ng/mL Coagulation 10/02/16 10/02/16 10/03/16 Range/Units 10:30 18:50 01:50 PT 10.3 (9.0-12.0) sec APTT 24.1 37.9 H 46.8 H (22.0-30.0) sec 10/03/16 Range/Units 06:02 PT (9.0-12.0) sec APTT 43.1 H (22.0-30.0) sec Lipids 10/03/16 Range/Units 06:02 Triglycerides 225 H (<150) mg/dL Cholesterol 130 (<200) mg/dL HDL Cholesterol 45 (40-60) mg/dL CBC 10/02/16 10/03/16 Range/Units 10:30 06:02 WBC 8.0 (3.8-10.6) k/uL RBC 3.73 L (3.80-5.40) m/uL Hgb 11.2 L (11.4-16.0) gm/dL Hct 35.0 (34.0-46.0) % Plt Count 140 L 109 L (150-450) k/uL Comprehensive Metabolic Panel 10/02/16 Range/Units 10:30 Sodium 141 (137-145) mmol/L Potassium 4.2 (3.5-5.1) mmol/L Chloride 100 (98-107) mmol/L Carbon Dioxide 27 (22-30) mmol/L BUN 36 H (7-17) mg/dL Creatinine 5.50 H* (0.52-1.04) mg/dL Glucose 176 H (74-99) mg/dL Calcium 9.0 (8.4-10.2) mg/dL AST 22 (14-36) U/L ALT 18 (9-52) U/L Alkaline Phosphatase 187 H (38-126) U/L Total Protein 6.7 (6.3-8.2) g/dL Albumin 3.9 (3.5-5.0) g/dL Current Medications Generic Name Dose Route Start Last Admin Trade Name Freq PRN Reason Stop Dose Admin Acetaminophen 650 mg 10/02/16 12:55 Tylenol Tab PO Q6HR PRN Pain Allopurinol 100 mg 10/03/16 09:00 10/03/16 09:22 Zyloprim PO 100 mg DAILY@0900 MUKUND Administration Aspirin 325 mg 10/03/16 09:00 10/03/16 09:21 Aspirin PO 325 mg DAILY MUKUND Administration Atorvastatin Calcium 80 mg 10/02/16 21:00 10/02/16 20:36 Lipitor PO 80 mg HS MUKUND Administration Calcium Acetate 667 mg 10/02/16 21:00 10/02/16 20:36 Phoslo PO 667 mg HS MUKUND Administration Calcium Acetate 2,001 mg 10/02/16 17:30 10/03/16 09:21 Phoslo PO 2,001 mg AC-TID MUKUND Administration Cinacalcet 30 mg 10/02/16 21:00 10/02/16 20:36 Sensipar PO 30 mg HS MUKUND Administration Clopidogrel Bisulfate 75 mg 10/02/16 21:00 10/02/16 20:35 Plavix PO 75 mg HS MUKUND Administration Furosemide 80 mg 10/02/16 21:00 10/03/16 09:21 Lasix PO 80 mg BID MUKUND Administration Gabapentin 100 mg 10/02/16 21:00 10/03/16 09:21 Neurontin PO 100 mg BID@0900,2100 MUKUND Administration Heparin Sodium (Porcine) 0 unit 10/02/16 20:21 10/02/16 20:34 Heparin IV 4,750 unit PER PROTOCOL PRN Administration Low PTT Protocol Hydrocortisone Acetate 25 mg 10/03/16 09:00 10/03/16 09:25 Anusol-Hc RECTAL Not Given DAILY MUKUND Heparin Sodium/Dextrose 25,000 500 mls @ 19.95 mls/hr 10/02/16 11:30 07:21 unit/ IV Solution IV 15.52 units/kg/hr .Q24H MUKUND 29.48 mls/hr Protocol Titration 10.5 UNITS/KG/HR Insulin Glargine 30 unit 10/02/16 21:00 10/02/16 20:36 Lantus SQ 30 unit HS MUKUND Administration Insulin Human Lispro 0 unit 10/02/16 17:30 10/03/16 06:39 Humalog SQ 1 unit ACHS MUKUND Administration Protocol Isosorbide Mononitrate 30 mg 10/02/16 13:30 10/03/16 09:21 Imdur PO 30 mg QAM UMKUND Administration Loperamide HCl 2 mg 10/02/16 12:55 10/03/16 09:21 Imodium PO 2 mg QID PRN Administration Diarrhea Magnesium Oxide 400 mg 10/02/16 21:00 10/03/16 09:21 Mag-Ox PO 400 mg BID MUKUND Administration Midodrine 10 mg 10/02/16 17:30 10/03/16 06:39 Proamatine PO 10 mg AC-TID MUKUND Administration Montelukast Sodium 10 mg 10/02/16 21:00 10/02/16 20:35 Singulair PO 10 mg HS MUKUND Administration Nitroglycerin 0.4 mg 10/02/16 12:55 Nitrostat SUBLINGUAL Q5M PRN Chest Pain Pantoprazole Sodium 40 mg 10/03/16 07:30 10/03/16 06:39 Protonix PO 40 mg AC-BRKFST MUKUND Administration Sertraline HCl 50 mg 10/02/16 21:00 10/02/16 20:35 Zoloft PO 50 mg HS MUKUND Administration Sodium Bicarbonate 650 mg 10/02/16 21:00 10/03/16 09:21 Sodium Bicarbonate Tab PO 650 mg BID MUKUND Administration Intake and Output 10/02/16 10/03/16 10/03/16 22:59 06:59 14:59 Intake Total 885 0 284.192 Output Total 200 Balance 885 -200 284.192 Intake: Intake, IV Titration 145 284.192 Amount Heparin Sodium,Porcine/ 145 284.192 D5w Pmx 25,000 unit In Dextrose/Water 1 500ml. bag @ 10.5 UNITS/KG/HR 19 .95 mls/hr IV .Q24H [facility] Rx#:[id number] Oral 740 0 Output: Urine 200 Other: Voiding Method Toilet Toilet Toilet Weight 92.5 kg 10/03/16 06:02 10/02/16 10:30 EKG Interpretations (text) EKG shows normal sinus rhythm with no acute changes. Assessment and Plan Plan: Assessment and plan #1 brief episode of sinus bradycardia, asymptomatic, during dialysis. Currently in normal sinus rhythm with a heart rate in the 80s. TSH normal. #2 end-stage renal disease on hemodialysis #3 known history of coronary artery disease with prior bypass surgery and multiple stent placements #4 hypertension #5 hyperlipidemia #6 diabetes #7 family history of premature coronary artery disease #8 orthostatic hypotension, on midodrine. #9 abnormal troponins, likely secondary to renal failure. On previous admissions, patient is also noted to have consistent abnormal troponins. Plan Cardiology's perspective, patient should be able to be discharged home. We'll make her a follow-up appointment to see Dr. doe on in the office post discharge. DNP note has been reviewed, I agree with a documented findings and plan of care. Patient was seen and examined. <Troy Engle - Last Filed: 10/03/16 10:48> Physical Exam Vitals: Vital Signs Temp Pulse Pulse Resp BP BP Pulse Ox 10/03/16 08:00 97.6 F 70 18 110/55 99 10/03/16 02:53 81 18 10/03/16 02:52 97.5 F L 81 18 109/58 94 L 10/03/16 00:00 97.5 F L 87 18 106/56 98 10/02/16 20:00 97.5 F L 82 16 114/57 96 10/02/16 16:00 97.8 F 88 18 98/68 98 10/02/16 13:45 87 16 130/72 98 10/02/16 13:07 97.7 F 85 18 120/58 95 Intake and Output 10/02/16 10/03/16 10/03/16 22:59 06:59 14:59 Intake Total 885 0 284.192 Output Total 200 Balance 885 -200 284.192 Intake: Intake, IV Titration 145 284.192 Amount Heparin Sodium,Porcine/ 145 284.192 D5w Pmx 25,000 unit In Dextrose/Water 1 500ml. bag @ 10.5 UNITS/KG/HR 19 .95 mls/hr IV .Q24H [facility] Rx#:[id number] Oral 740 0 Output: Urine 200 Other: Voiding Method Toilet Toilet Toilet Weight 92.5 kg Results 10/03/16 06:02 10/02/16 10:30 Cardiac Enzymes 10/02/16 10/02/16 10/02/16 Range/Units 10:30 10:30 16:57 AST 22 (14-36) U/L CK-MB (CK-2) 1.2 1.0 (0.0-2.4) ng/mL Troponin I 0.045 H* 0.031 (0.000-0.034) ng/mL 10/03/16 Range/Units 01:31 AST (14-36) U/L CK-MB (CK-2) 1.3 (0.0-2.4) ng/mL Troponin I 0.033 (0.000-0.034) ng/mL Coagulation 10/02/16 10/02/16 10/03/16 Range/Units 10:30 18:50 01:50 PT 10.3 (9.0-12.0) sec APTT 24.1 37.9 H 46.8 H (22.0-30.0) sec 10/03/16 Range/Units 06:02 PT (9.0-12.0) sec APTT 43.1 H (22.0-30.0) sec Lipids 10/03/16 Range/Units 06:02 Triglycerides 225 H (<150) mg/dL Cholesterol 130 (<200) mg/dL HDL Cholesterol 45 (40-60) mg/dL CBC 10/02/16 10/03/16 Range/Units 10:30 06:02 WBC 8.0 (3.8-10.6) k/uL RBC 3.73 L (3.80-5.40) m/uL Hgb 11.2 L (11.4-16.0) gm/dL Hct 35.0 (34.0-46.0) % Plt Count 140 L 109 L (150-450) k/uL Comprehensive Metabolic Panel 10/02/16 Range/Units 10:30 Sodium 141 (137-145) mmol/L Potassium 4.2 (3.5-5.1) mmol/L Chloride 100 (98-107) mmol/L Carbon Dioxide 27 (22-30) mmol/L BUN 36 H (7-17) mg/dL Creatinine 5.50 H* (0.52-1.04) mg/dL Glucose 176 H (74-99) mg/dL Calcium 9.0 (8.4-10.2) mg/dL AST 22 (14-36) U/L ALT 18 (9-52) U/L Alkaline Phosphatase 187 H (38-126) U/L Total Protein 6.7 (6.3-8.2) g/dL Albumin 3.9 (3.5-5.0) g/dL Current Medications Generic Name Dose Route Start Last Admin Trade Name Freq PRN Reason Stop Dose Admin Acetaminophen 650 mg 10/02/16 12:55 Tylenol Tab PO Q6HR PRN Pain Allopurinol 100 mg 10/03/16 09:00 10/03/16 09:22 Zyloprim PO 100 mg DAILY@0900 MUKUND Administration Aspirin 325 mg 10/03/16 09:00 10/03/16 09:21 Aspirin PO 325 mg DAILY MUKUND Administration Atorvastatin Calcium 80 mg 10/02/16 21:00 10/02/16 20:36 Lipitor PO 80 mg HS MUKUND Administration Calcium Acetate 667 mg 10/02/16 21:00 10/02/16 20:36 Phoslo PO 667 mg HS MUKUND Administration Calcium Acetate 2,001 mg 10/02/16 17:30 10/03/16 09:21 Phoslo PO 2,001 mg AC-TID MUKUND Administration Cinacalcet 30 mg 10/02/16 21:00 10/02/16 20:36 Sensipar PO 30 mg HS MUKUND Administration Clopidogrel Bisulfate 75 mg 10/02/16 21:00 10/02/16 20:35 Plavix PO 75 mg HS MUKUND Administration Furosemide 80 mg 10/02/16 21:00 10/03/16 09:21 Lasix PO 80 mg BID MUKUND Administration Gabapentin 100 mg 10/02/16 21:00 10/03/16 09:21 Neurontin PO 100 mg BID@0900,2100 MUKUND Administration Heparin Sodium (Porcine) 0 unit 10/02/16 20:21 10/02/16 20:34 Heparin IV 4,750 unit PER PROTOCOL PRN Administration Low PTT Protocol Hydrocortisone Acetate 25 mg 10/03/16 09:00 10/03/16 09:25 Anusol-Hc RECTAL Not Given DAILY MUKUND Heparin Sodium/Dextrose 25,000 500 mls @ 19.95 mls/hr 10/02/16 11:30 07:21 unit/ IV Solution IV 15.52 units/kg/hr .Q24H MUKUND 29.48 mls/hr Protocol Titration 10.5 UNITS/KG/HR Insulin Glargine 30 unit 10/02/16 21:00 10/02/16 20:36 Lantus SQ 30 unit HS MUKUND Administration Insulin Human Lispro 0 unit 10/02/16 17:30 10/03/16 06:39 Humalog SQ 1 unit ACHS MUKUND Administration Protocol Isosorbide Mononitrate 30 mg 10/02/16 13:30 10/03/16 09:21 Imdur PO 30 mg QAM MUKUND Administration Loperamide HCl 2 mg 10/02/16 12:55 10/03/16 09:21 Imodium PO 2 mg QID PRN Administration Diarrhea Magnesium Oxide 400 mg 10/02/16 21:00 10/03/16 09:21 Mag-Ox PO 400 mg BID MUKUND Administration Midodrine 10 mg 10/02/16 17:30 10/03/16 06:39 Proamatine PO 10 mg AC-TID MUKUND Administration Montelukast Sodium 10 mg 10/02/16 21:00 10/02/16 20:35 Singulair PO 10 mg HS MUKUND Administration Nitroglycerin 0.4 mg 10/02/16 12:55 Nitrostat SUBLINGUAL Q5M PRN Chest Pain Pantoprazole Sodium 40 mg 10/03/16 07:30 10/03/16 06:39 Protonix PO 40 mg AC-BRKFST MUKUND Administration Sertraline HCl 50 mg 10/02/16 21:00 10/02/16 20:35 Zoloft PO 50 mg HS MUKUDN Administration Sodium Bicarbonate 650 mg 10/02/16 21:00 10/03/16 09:21 Sodium Bicarbonate Tab PO 650 mg BID MUKUND Administration Intake and Output 10/02/16 10/03/16 10/03/16 22:59 06:59 14:59 Intake Total 885 0 284.192 Output Total 200 Balance 885 -200 284.192 Intake: Intake, IV Titration 145 284.192 Amount Heparin Sodium,Porcine/ 145 284.192 D5w Pmx 25,000 unit In Dextrose/Water 1 500ml. bag @ 10.5 UNITS/KG/HR 19 .95 mls/hr IV .Q24H [facility] Rx#:[id number] Oral 740 0 Output: Urine 200 Other: Voiding Method Toilet Toilet Toilet Weight 92.5 kg 10/03/16 06:02 10/02/16 10:30
--- NOTE | 2016-10-03 10:55 | P.PN ---
Progress Note - Text Patient interviewed and examined Chronic kidney disease, endstage, on dialysis Recurrent dizzy spells Episodes of drop in blood pressure as well as episodes of drop in heart rate during dialysis Patient may go home from a cardiac standpoint and follow Dr. Rothman. A 48-hour Holter monitor to be ordered as an outpatient with Dr. Rothman Please see full dictation by Dr. grover
[2016-10-03 11:33] LABS: Glucose,Whole Blood 206 mg/dL (75-99)
[2016-10-03 12:55] VITALS: BMI 33.9
[2016-10-03] MEDS ORDERED: GELATIN SPONGE,ABSORB (SMALL) 1 EACH SPONGE ONE (13:45)
[2016-10-03 16:25] LABS: Glucose,Whole Blood 195 mg/dL (75-99)
--- NOTE | 2016-10-03 17:29 | P.DS ---
Providers Date of admission: 10/02/16 11:27 Expected date of discharge: 10/03/16 Attending physician: Kyle Campos Consults: 10/02/16 11:27 Consult Physician Urgent Consulting Provider: Luis Fernando Wright Consult Reason/Comments: flex Do you want consulting provider notified?: Yes 10/02/16 13:04 Consult Physician Routine Consulting Provider: Gricelda Andrea Consult Reason/Comments: ESRD dialysis Do you want consulting provider notified?: Yes Primary care physician: [facility] Hospital Course: Diagnosis on discharge: 1. Symptomatic sinus bradycardia with dizziness and fatigue in the outpatient setting during dialysis. Patient reports a heart rate in the 40s. She'll be admitted to the sixth floor and placed on telemetry monitoring. Cardiology will be consulted. EKG shows sinus rhythm with a heart rate in the 90s. 2. Chest pressure with shortness of breath on exertion: First troponin 0.045. Patient currently on IV heparin. Cardiology is consulted. Check chest x-ray 3. End-stage renal disease: Hemodialysis Sunday consult nephrology 4. Diabetes mellitus type 2: Resume Lantus and sliding scale coverage and monitor 5. History of coronary disease with previous cardiac stents and myocardial infarction 6. Hypothyroidism resume Synthroid 7. Hyperlipidemia on statin Hospital course This is a 61-year-old female with a known history of coronary artery disease with cardiac stents, myocardial infarction, diabetes mellitus, end-stage renal disease on hemodialysis Sunday, hyperlipidemia and hypothyroidism. Patient was at dialysis today doing her routine treatment and was told that her heart rate was low and in the 40s and was told to go to the emergency room. Patient also had been reviewed in [place] visiting her daughter last week was having dialysis down there and was told that her heart rate was low as well. She presents to the emergency room for evaluation. EKG has shown normal sinus rhythm with a heart rate in the 90s there was nonspecific ST-T wave changes. There is a troponin of 0.05 she was started on IV heparin. She will be admitted to the sixth floor and cardiology has been consulted. Patient also notes that her heart rate is low just before she goes to bed. She's had no new changes of medications and denies being on any beta blockers. She said she was on as a beta luis about a month ago and was taken off of it due to hypotension. Patient does admit to being more fatigued and having some dizziness and lightheadedness. She also noted to have some shortness of breath denies any cough fever or chills or sweats. Denies any nausea or vomiting. Denies any bowel movement changes or urinary symptoms. She did well she was asymptomatic during this admission, she was evaluated by cardiology Dr. Engle no intervention was recommended at this time commendation were to follow-up with her teacher private Dr. Rothman and to have outpatient Holter monitor for 48 hours if she continues to have episodes of bradycardia she may need a pacemaker. Patient should follow up in our office within 1 week Patient Condition at Discharge: Undetermined Plan - Discharge Summary Discharge Medication List Allopurinol [Zyloprim] 100 mg PO DAILY@0900 11/15/14 [History] Gabapentin [Neurontin] 100 mg PO BID@0900,209911/15/14 [History] Nitroglycerin Sl Tabs [Nitrostat] 0.4 mg SUBLINGUAL Q5M PRN #25 tab 11/19/14 [Rx ] Omeprazole [PriLOSEC] 20 mg PO BID@0900,209901/31/15 [History] Insulin Glargine [Lantus] 30 unit SQ HS 03/03/15 [History] Loperamide [Imodium] 2 mg PO QID PRN 03/03/15 [History] Mv-Min/Vit C/Glu/Karla HCl/Hc124 [Airborne Tablet Chewable] 1 tab PO QID PRN 03/03 [History] Sertraline [Zoloft] 50 mg PO DAILY 03/03/15 [History] Atorvastatin [Lipitor] 40 mg PO HS 04/23/15 [History] Clopidogrel [Plavix] 75 mg PO DAILY 04/23/15 [History] Aspirin [Adult Low Dose Aspirin EC] 81 mg PO HS 05/06/16 [History] Calcium Acetate [PhosLo] 2,001 mg PO AC-TID 05/06/16 [History] Cinacalcet HCl [Sensipar] 30 mg PO HS 05/06/16 [History] Furosemide [Lasix] 80 mg PO BID 05/06/16 [History] Insulin Aspart [NovoLOG] See Protocol SQ AC-TID 05/06/16 [History] Slow-Mag 71.5mg 143 mg PO BID 05/06/16 [History] Sodium Bicarbonate Tab 650 mg PO BID 05/06/16 [History] Isosorbide Mononitrate ER [Imdur] 30 mg PO QAM 06/24/16 [History] Montelukast [Singulair] 10 mg PO HS #30 tab 06/30/16 [Rx] Calcium Acetate [PhosLo] 667 mg PO HS 08/02/16 [History] Hydrocortisone Suppository [Anusol-Hc] 25 mg RECTAL DAILY #30 supp 08/07/16 [Rx] Midodrine [ProAmatine] 10 mg PO AC-TID #90 tab 08/07/16 [Rx] Acetaminophen Tab [Tylenol] 650 mg PO Q6HR PRN 10/02/16 [History] INSULIN LISPRO (humaLOG) [humaLOG (formulary)] See Protocol SQ TID 10/02/16 [ History] Aspirin 325 mg PO DAILY tab 10/03/16 [Rx] Atorvastatin [Lipitor] 80 mg PO HS tab 10/03/16 [Rx] Follow up Appointment(s)/Referral(s): Song Rothman MD [STAFF PHYSICIAN] - 2 Weeks Kyle Campos MD [Primary Care Provider] - 10/05/16 10:45 am Patient Instructions/Handouts: Renal Failure Diet (DC), Dialysis Diet (DC) Activity/Diet/Wound Care/Special Instructions: 48 hour [id number] monitor on discharge
[2016-10-03 18:53] VITALS: BP 129/61; PULSE 87
== END 2016-10-03 18:54 | disposition home or self-care (01) | DRG 308 ==
LOC: EC 09:34 → 6SEL 11:27
PROVIDERS: ADMIT Internal Medicine; ATTEND Internal Medicine
PROC: 5A1D00Z (ICD-10-PCS; principal; 2016-10-02)
DX: R00.1 Bradycardia, unspecified (principal); N18.6 End stage renal disease; I12.0 Hypertensive chronic kidney disease with stage 5 chronic kidney disease or end stage renal disease; E11.22 Type 2 diabetes mellitus with diabetic chronic kidney disease; I08.1 Rheumatic disorders of both mitral and tricuspid valves; E83.9 Disorder of mineral metabolism, unspecified; E03.9 Hypothyroidism, unspecified; E20.9 Hypoparathyroidism, unspecified; E78.5 Hyperlipidemia, unspecified; F32.9 Major depressive disorder, single episode, unspecified; G47.30 Sleep apnea, unspecified; I25.10 Atherosclerotic heart disease of native coronary artery without angina pectoris; I25.2 Old myocardial infarction; I51.7 Cardiomegaly; M10.9 Gout, unspecified; I95.1 Orthostatic hypotension; K64.9 Unspecified hemorrhoids; R74.8 Abnormal levels of other serum enzymes; Z79.02 Long term (current) use of antithrombotics/antiplatelets; Z79.4 Long term (current) use of insulin; Z79.82 Long term (current) use of aspirin; Z79.899 Other long term (current) drug therapy; Z95.1 Presence of aortocoronary bypass graft; Z95.5 Presence of coronary angioplasty implant and graft; Z99.2 Dependence on renal dialysis; Z88.1 Allergy status to other antibiotic agents; Z88.5 Allergy status to narcotic agent; Z88.0 Allergy status to penicillin; Z88.8 Allergy status to other drugs, medicaments and biological substances; Z82.49 Family history of ischemic heart disease and other diseases of the circulatory system
CPT/HCPCS: 36415; 71020; 80053; 80061; 82550; 82553; 83036; 83735; 84100; 84439; 84443; 84484; 85025; 85049; 85610; 85730; 90935; 93005

== ENCOUNTER 2016-11-01 10:56 | Observation (INO) | payer MEDICARE, BC ==
[2016-11-01] MEDS ORDERED: NITROGLYCERIN OINT 1 INCH/GM PACKET TOPICAL STA (11:20)
--- NOTE | 2016-11-01 11:23 | ED ---
Chest Pain HPI - General Chief Complaint: Chest Pain Stated Complaint: LOW HEART RATE DURING DIALYSIS, CHEST PAIN Time Seen by Provider: 11/01/16 11:03 Source: patient, RN notes reviewed Mode of arrival: wheelchair Limitations: no limitations - History of Present Illness Initial Comments: This is a 61-year-old female with history of heart disease bypass surgery in [facility] being in April of this past year who states she had just cut off dialysis about 20 minutes earlier when she started developing anterior chest pain with some pain to the left shoulder. Initially was 5-6 in severity now the left arm pains for/10 chest discomfort is about 2/10. Feels associated palpitations with this. She's not sure her feel somewhat previous cardiac events. It does get somewhat worse with movement of her left shoulder. MD Complaint: chest pain - Related Data Home Medications Medication Instructions Recorded Confirmed Allopurinol [Zyloprim] 100 mg PO DAILY@0900 11/15/14 11/01/16 Gabapentin [Neurontin] 100 mg PO BID@0900,209911/15/14 11/01/16 Omeprazole [PriLOSEC] 20 mg PO BID@0900,209901/31/15 11/01/16 Insulin Glargine [Lantus] 30 unit SQ HS 03/03/15 11/01/16 Loperamide [Imodium] 2 mg PO QID PRN 03/03/15 11/01/16 Mv-Min/Vit C/Glu/Karla HCl/Hc124 1 tab PO QID PRN 03/03/15 11/01/16 [Airborne Tablet Chewable] Sertraline [Zoloft] 50 mg PO DAILY 03/03/15 11/01/16 Clopidogrel [Plavix] 75 mg PO DAILY 04/23/15 11/01/16 Aspirin [Adult Low Dose Aspirin EC] 81 mg PO HS 05/06/16 11/01/16 Calcium Acetate [PhosLo] 2,001 mg PO AC-TID 05/06/16 11/01/16 Cinacalcet HCl [Sensipar] 30 mg PO HS 05/06/16 11/01/16 Furosemide [Lasix] 80 mg PO BID 05/06/16 11/01/16 Insulin Aspart [NovoLOG] See Protocol SQ AC-TID 05/06/16 11/01/16 Slow-Mag 71.5mg 143 mg PO BID 05/06/16 11/01/16 Sodium Bicarbonate Tab 650 mg PO BID 05/06/16 11/01/16 Isosorbide Mononitrate ER [Imdur] 30 mg PO QAM 06/24/16 11/01/16 Calcium Acetate [PhosLo] 667 mg PO HS 08/02/16 11/01/16 Acetaminophen Tab [Tylenol] 650 mg PO Q6HR PRN 10/02/16 11/01/16 Previous Rx's Medication Instructions Recorded Nitroglycerin Sl Tabs [Nitrostat] 0.4 mg SUBLINGUAL Q5M PRN #25 tab 11/19/14 Montelukast [Singulair] 10 mg PO HS #30 tab 06/30/16 Hydrocortisone Suppository 25 mg RECTAL DAILY #30 supp 08/07/16 [Anusol-Hc] Midodrine [ProAmatine] 10 mg PO AC-TID #90 tab 08/07/16 Atorvastatin [Lipitor] 80 mg PO HS tab 10/03/16 Allergies Allergy/AdvReac Type Severity Reaction Status Date / Time adhesive Allergy Rash/Hives Verified 11/01/16 12:08 cephalexin monohydrate Allergy Rash/Hives Verified 11/01/16 12:08 [From Keflex] hydromorphone HCl Allergy Hallucinati Verified 11/01/16 12:08 [From Dilaudid] ons iodine Allergy Rash/Hives Verified 11/01/16 12:08 Penicillins Allergy Unknown Verified 11/01/16 12:08 Childhood povidone-iodine Allergy Unknown Verified 11/01/16 12:08 [From Betadine] shellfish derived [Shrimp] Allergy Rash/Hives Verified 11/01/16 12:08 soap [From Betadine] Allergy Unknown Verified 11/01/16 12:08 fentanyl AdvReac Unknown Verified 11/01/16 12:08 hydrocodone bitartrate AdvReac Itching Verified 11/01/16 12:08 [From Vicodin] midazolam [From Versed] AdvReac Unknown Verified 11/01/16 12:08 morphine AdvReac Hallucinati Verified 11/01/16 12:08 ons tramadol AdvReac Itching Verified 11/01/16 12:08 artifical sweetener AdvReac Unknown Uncoded 11/01/16 11:05 Review of Systems ROS Statement: Those systems with pertinent positive or pertinent negative responses have been documented in the HPI. ROS Other: All systems not noted in ROS Statement are negative. EKG Findings - EKG Results: EKG: interpreted by DOMITILA, sinus rhythm (Sinus rhythm with a rate of 81. Avoid 50 to QRS 110 daily since QTC of 343/level for old inferior changes prolonged QT interval.) Past Medical History Past Medical History: Coronary Artery Disease (CAD), Diabetes Mellitus, Hyperlipidemia, Hypertension, Myocardial Infarction ([place]), Renal Disease, Thyroid Disorder Additional Past Medical History / Comment(s): MIs, IDDM type II, GOUT R foot, diabetic neuropathy bilateral feet and now "all over", chronic ANEMIA, MITRAL and TRICUSID REGURGITATION, esrd gets hemodialysis [id number]., UTIs, bronchitis, hypoparathyroid, wears O2 at 2L/NC during dialysis only, hemorrhoids -have caused anemia in past, hyperkalemia Last Myocardial Infarction Date:: 05/08/16 History of Any Multi-Drug Resistant Organisms: None Reported Past Surgical History: Coronary Bypass/CABG, Heart Catheterization, Heart Catheterization With Stent Additional Past Surgical History / Comment(s): 07/05/16 cardiac cath-tx medially, PREVIOUS STENTS TO CIRC AND LAD-HAD REOCCLUSION THEN HAD 3 VESSEL CABG, PTCAs, AV fistula R arm, colonoscopy-normal, bilateral cataract removal with lens implants, bilateral eye laser sx to remove fluid. Past Anesthesia/Blood Transfusion Reactions: Previous Problems w/ Anesthesia Additional Past Anesthesia/Blood Transfusion Reaction / Comment(s): POST OP DELIRIUM/AGITATION/PSYCHOSIS-RESOLVED. Pt states she had a problem with hypotension last time she received versed. Date of Last Stent Placement:: 05/08/16 Past Psychological History: Depression Additional Psychological History / Comment(s): Pt lives with her spouse. Pt no longer uses her walker of her wheelchair-she is ambulatory. Her p d driver's license lapsed while hospitalized and she has not gotten around to getting another one. Her spouse drives. Spouse manages her medications. They have been 39 yrs. She states her depression has improved with Zoloft and she is going to her daughters and spending time with her grandchildren. Smoking Status: Never smoker Past Alcohol Use History: None Reported Past Drug Use History: None Reported - Past Family History Mother Family Medical History: Diabetes Mellitus, Myocardial Infarction ([place]), Thyroid Disorder Additional Family Medical History / Comment(s): CABG, gout, hypothyroid. Mother is 80yrs old. Sister(s) Family Medical History: Diabetes Mellitus, Thyroid Disorder Father Family Medical History: Diabetes Mellitus, Myocardial Infarction ([place]) Additional Family Medical History / Comment(s): Father at the age of 67yrs of a [place] General Exam - General Exam Comments Initial Comments: This is a well-developed well-nourished awake alert oriented 3 female Limitations: no limitations General appearance: alert, in no apparent distress Head exam: Present: atraumatic, normocephalic, normal inspection Eye exam: Present: normal appearance, PERRL, EOMI. Absent: scleral icterus, conjunctival injection, periorbital swelling ENT exam: Present: normal exam, mucous membranes moist Neck exam: Present: normal inspection. Absent: tenderness, meningismus, lymphadenopathy Respiratory exam: Present: normal lung sounds bilaterally, chest wall tenderness. Absent: respiratory distress, wheezes, rales, rhonchi, stridor Cardiovascular Exam: Present: regular rate, normal rhythm, normal heart sounds. Absent: systolic murmur, diastolic murmur, rubs, gallop, clicks GI/Abdominal exam: Present: soft, normal bowel sounds. Absent: distended, tenderness, guarding, rebound, rigid Extremities exam: Present: normal inspection, full ROM, normal capillary refill. Absent: tenderness, pedal edema, joint swelling, calf tenderness Back exam: Present: normal inspection Neurological exam: Present: alert, oriented X3, CN II-XII intact Psychiatric exam: Present: normal affect, normal mood Skin exam: Present: warm, dry, intact, normal color. Absent: rash Course Vital Signs 11/01/16 11/01/16 11/01/16 11:02 12:04 13:28 Temperature 97.1 F L Pulse Rate 79 79 78 Respiratory 18 16 18 Rate Blood Pressure 130/60 122/60 120/59 O2 Sat by Pulse 100 95 99 Oximetry 11/01/16 13:59 Temperature Pulse Rate 76 Respiratory 18 Rate Blood Pressure 119/62 O2 Sat by Pulse 81 L Oximetry Chest Pain MDM - MDM Review the imaging shows no definite acute findings. Patient is currently pain- free. I did discuss the findings with the patient she has had atypical presentations of chest pain in the past with her cardiac events. Patient will be admitted for cardiology evaluation. I did discuss the case with Dr. Campos. Disposition Clinical Impression: Chest wall syndrome, Atypical chest pain, Chronic renal failure Disposition: ADMITTED IP TO THIS HOSP Condition: Stable Referrals: Kyle Campos MD [Primary Care Provider] - 1-2 days
[2016-11-01 11:49] LABS: Anisocytosis Slight; Basophils # (A) 0.1 k/uL (0-0.2); Basophils % (A) 1 %; CH 30.3; CHCM 33.7; Eosinophils # (A) 0.2 k/uL (0-0.7); Eosinophils % (A) 3 %; HCT 37.8 % (34.0-46.0); HDW 3.37; HGB 12.6 gm/dL (11.4-16.0); Luc % (Auto) 1; Lymphocytes # (A) 1.5 k/uL (1.0-4.8); Lymphocytes % (A) 16 %; MCH 30.1 pg (25.0-35.0); MCHC 33.4 g/dL (31.0-37.0); MCV 90.1 fL (80.0-100.0); Mean Platelet Volume 7.4; Monocytes # (A) 0.3 k/uL (0-1.0); Monocytes % (A) 3 %; Neutrophils # (A) 7.2 k/uL (1.3-7.7); Neutrophils % (A) 77 %; RDW 17.7 % (11.5-15.5); WBC 9.3 k/uL (3.8-10.6); WBC (Perox) 9.86
--- NOTE | 2016-11-01 11:58 | XR ---
EXAMINATION TYPE: XR chest 2V DATE OF EXAM: 11/01/2016 COMPARISON: Chest x-ray October 02, 2016. Older x-ray July 03, 2016. HISTORY: Chest pain per order. History of open heart surgery 2014. TECHNIQUE: Frontal and lateral views of the chest are obtained. FINDINGS: Post CABG changes with mediastinal clips and sternal wires is present. There is persistent small left pleural effusion or pleural thickening seen on lateral view unchanged from prior. There is no new focal air space opacity or pneumothorax seen. The cardiac silhouette size is enlarged. The osseous structures are intact. IMPRESSION: Cardiomegaly and small left pleural effusion or pleural thickening redemonstrated. No si gnificant change from prior studies.
[2016-11-01 11:59] LABS: Calcium 9.6 mg/dL (8.4-10.2); Magnesium 1.9 mg/dL (1.6-2.3); Potassium 3.5 mmol/L (3.5-5.1); Total Bilirubin 0.7 mg/dL (0.2-1.3); Total Protein 7.7 g/dL (6.3-8.2)
[2016-11-01 12:22] LABS: Creatine Kinase MB 1.2 ng/mL (0.0-2.4); Troponin I 0.03 ng/mL (0.000-0.034)
[2016-11-01 12:29] LABS: Partial Thromboplastin Time 22.8 sec (22.0-30.0)
[2016-11-01] MEDS ORDERED: NITROGLYCERIN SL TABS 0.4 MG TAB SUBLINGUAL PRN (14:31)
[2016-11-01] MEDS ORDERED: HEPARIN SODIUM,PORCINE 5,000 UNIT/ML 1 ML VIAL IV ONE (14:31)
[2016-11-01] MEDS ORDERED: LOPERAMIDE 2 MG CAP PO PRN (14:34)
[2016-11-01] MEDS ORDERED: [UNRECOGNIZED DRUG - OTHER] PO PRN (14:34)
[2016-11-01] MEDS ORDERED: ACETAMINOPHEN TAB 325 MG TAB PO PRN (14:34)
[2016-11-01] MEDS ORDERED: SODIUM CHLORIDE 0.9% 1,000 ML IV SCH (14:45)
[2016-11-01] MEDS ORDERED: HEPARIN SODIUM,PORCINE/D5W PMX 25,000 UNIT in DEXTROSE/WATER 1 500ML.BAG IV SCH (14:45)
[2016-11-01] MEDS: FUROSEMIDE 80 MG TAB PO SCH (16:40)
[2016-11-01 17:07] LABS: Glucose,Whole Blood 159 mg/dL (75-99)
[2016-11-01] MEDS: INSULIN LISPRO (humaLOG) 300 UNIT/3 ML VIAL SQ SCH ×2 (17:30→20:53)
[2016-11-01] MEDS: MIDODRINE 5 MG TAB PO SCH (17:31)
[2016-11-01] MEDS: CALCIUM ACETATE 667 MG CAP PO SCH (17:31)
[2016-11-01 18:06] LABS: Troponin I 0.027 ng/mL (0.000-0.034)
[2016-11-01] MEDS: NITROGLYCERIN OINT 1 INCH/GM PACKET TOPICAL SCH ×2 (18:37→23:15)
[2016-11-01] MEDS: SODIUM BICARBONATE TAB 650 MG TAB PO SCH (19:58)
[2016-11-01] MEDS: GABAPENTIN 100 MG CAP PO SCH (19:58)
[2016-11-01] MEDS: PANTOPRAZOLE 40 MG TABLET PO SCH (19:58)
[2016-11-01 20:46] LABS: Glucose,Whole Blood 274 mg/dL (75-99)
[2016-11-01] MEDS ORDERED: CALCIUM ACETATE 667 MG CAP PO SCH (21:00)
[2016-11-01] MEDS ORDERED: MONTELUKAST 10 MG TAB PO SCH (21:00)
[2016-11-01] MEDS ORDERED: INSULIN GLARGINE 100 UNIT/ML 10 ML VIAL SQ SCH (21:00)
[2016-11-01] MEDS ORDERED: CINACALCET 30 MG TAB PO SCH (21:00)
[2016-11-01] MEDS ORDERED: ATORVASTATIN 80 MG TAB PO SCH (21:00)
[2016-11-01] MEDS ORDERED: HEPARIN SODIUM,PORCINE 5,000 UNIT/ML 1 ML VIAL IV PRN (22:35)
[2016-11-01 22:58] LABS: Creatine Kinase MB 0.9 ng/mL (0.0-2.4); Troponin I 0.025 ng/mL (0.000-0.034)
[2016-11-02] MEDS: NITROGLYCERIN OINT 1 INCH/GM PACKET TOPICAL SCH (04:09)
[2016-11-02 06:31] LABS: Cholesterol 146 mg/dL (<200); HDL Cholesterol 41 mg/dL (40-60); Triglycerides 465 mg/dL (<150)
[2016-11-02 06:49] LABS: Glucose,Whole Blood 180 mg/dL (75-99)
[2016-11-02 07:35] VITALS: BP 106/53; PULSE 78; RESP 16; TEMP 98.3
--- NOTE | 2016-11-02 07:49 | CONS ---
DATE OF CONSULTATION: Mrs. Mcqueen is a 61-year-old female with known history of coronary artery disease, who presented from the dialysis unit because of a drop in her heart rate. The patient has a known history of coronary artery disease, status post coronary artery bypass grafting and occlusion of graft with subsequent percutaneous revascularization. Her most recent cardiac catheterization was done in June of this year and at that time she was found to have patent to MICHELLE to the LAD, chronic occluded LAD, right coronary artery and left circumflex with patent stent to the ramus intermedius. Yesterday in dialysis they noted a drop in her heart rate and she was brought in to the emergency room. She had some fullness in the chest. Her breathing has been stable. She feels dizzy at the time with dialysis and she has prior episode of hypotension. She denies any palpitation. No syncope. No recent peripheral edema. She was in the hospital about a month ago with an episode of bradycardia during dialysis as well that resolved spontaneously. Yesterday, after presentation she was in sinus mechanism with no evidence of bradycardia. She is feeling quite well at this point. Her coronary risk factors are remarkable for the history of hypertension and hyperlipidemia. She is nonsmoker. She is diabetic. Her medications at home included aspirin once a day, Lipitor 80 mg daily, PhosLo, Sensipar, Plavix 75 mg daily, Lasix 80 mg twice a day, Neurontin, isosorbide mononitrate 30 mg daily, insulin, Singulair. REVIEW OF SYSTEMS: RESPIRATORY SYSTEM: She has no recent wheezing, cough. No fever. GI SYSTEM: No recent GI bleeding. No peptic ulcer disease. SYSTEM: She has end-stage renal disease on hemodialysis. NERVOUS SYSTEM: No history of stroke or seizure. PAST SURGICAL HISTORY: Remarkable for coronary artery bypass grafting and percutaneous revascularization. PHYSICAL EXAMINATION: A 61-year-old female, alert, oriented, in no apparent distress. Blood pressure 111/50 with a heart rate in the 70s. HEAD: Normocephalic. EYES: Sclerae anicteric. NECK: Good upstroke. No bruit. No jugular venous distention. LUNGS: Clear to auscultation. HEART: Regular rate and rhythm. S1, S2, no S3, with a systolic murmur heard at the base. No diastolic murmur. No rub. ABDOMEN: Soft, nontender, positive bowel sounds. No organomegaly. EXTREMITIES: No edema. Lab data revealed a troponin of 0.03, 0.02, 0.02. Cholesterol 146. BUN and creatinine 23 and 2.0. Potassium 3.5. Hemoglobin of 12.6. EKG revealed a sinus mechanism, rate of 81, normal axis with evidence of inferior myocardial infarction, poor R progression. There was no evolution on her EKG. IMPRESSION: 1. Transient chest discomfort and bradycardia during dialysis, resolved. No evidence to suggest acute coronary syndrome. 2. Status post coronary artery bypass grafting and percutaneous revascularization. 3. End-stage renal disease on hemodialysis. 4. Prior history of hypertension. 5. History of hyperlipidemia. 6. History of diabetes mellitus. RECOMMENDATIONS: From the cardiac standpoint, I see no evidence of active ischemic issue at this point. I will continue present therapy. Some of her discomfort could be related to small branches that have been chronically occluded. I will continue her on the present regimen and she will be followed as an outpatient. Thank you for this consult. We will follow with you. DANG
[2016-11-02] MEDS: CALCIUM ACETATE 667 MG CAP PO SCH ×2 (08:11→12:30)
[2016-11-02] MEDS: SODIUM BICARBONATE TAB 650 MG TAB PO SCH (08:11)
[2016-11-02] MEDS: MIDODRINE 5 MG TAB PO SCH ×2 (08:12→12:31)
[2016-11-02] MEDS: GABAPENTIN 100 MG CAP PO SCH (08:12)
[2016-11-02] MEDS: PANTOPRAZOLE 40 MG TABLET PO SCH (08:12)
[2016-11-02] MEDS: FUROSEMIDE 80 MG TAB PO SCH (08:12)
[2016-11-02] MEDS: INSULIN LISPRO (humaLOG) 300 UNIT/3 ML VIAL SQ SCH ×2 (08:14→12:32)
[2016-11-02] MEDS ORDERED: CLOPIDOGREL 75 MG TAB PO SCH (09:00)
[2016-11-02] MEDS ORDERED: ALLOPURINOL 100 MG TAB PO SCH (09:00)
[2016-11-02] MEDS ORDERED: ISOSORBIDE MONONITRATE ER 30 MG TAB.ER.24H PO SCH (09:00)
[2016-11-02] MEDS ORDERED: ASPIRIN 325 MG TAB PO SCH (09:00)
[2016-11-02] MEDS ORDERED: ASPIRIN 81 MG CHEW PO SCH (09:00)
[2016-11-02] MEDS ORDERED: SERTRALINE 50 MG TAB PO SCH (09:00)
[2016-11-02] MEDS ORDERED: HYDROCORTISONE SUPPOSITORY 25 MG SUPP RECTAL SCH (09:00)
--- NOTE | 2016-11-02 11:27 | P.HPIM ---
History of Present Illness H&P Date: 11/02/16 Chief Complaint: Chest pain and bradycardia This is a 61-year-old female with a known history of coronary artery disease with previous myocardial infarction and coronary artery bypass grafting, diabetes mellitus, hyperlipidemia, chronic kidney disease and hypothyroidism. Patient was undergoing her dialysis treatment yesterday when she developed some chest pain in the center of her chest that went to the left shoulder. Also she became bradycardic with a heart rate in the 40s. She completed most of her dialysis treatment except for the last 20 minutes. Patient reports blood work after dialysis was good. However she was told to go to the emergency room because of the chest pain and low heart rate. Patient was asymptomatic. She is eager for discharge home. She denies any chest pain heart palpitations. She denies any nausea or vomiting. Denies any dizziness. Denies any bowel movement changes urinary symptoms fevers chills or sweats. EKG had shown a normal sinus rhythm. Chest x-ray can't irregular small left pleural effusion. Patient was seen evaluated by cardiology they are recommending discharge and home and to continue with current cardiac medications. Patient's heart rate is been in 70s and 80s throughout her stay here. She is scheduled for her dialysis at the dialysis center tomorrow. Review of Systems Please refer to HPI otherwise unremarkable Past Medical History Past Medical History: Coronary Artery Disease (CAD), Diabetes Mellitus, Hyperlipidemia, Hypertension, Myocardial Infarction ([place]), Renal Disease, Thyroid Disorder Additional Past Medical History / Comment(s): MIs, IDDM type II, GOUT R foot, diabetic neuropathy bilateral feet and now "all over", chronic ANEMIA, MITRAL and TRICUSID REGURGITATION, esrd gets hemodialysis [id number]., UTIs, bronchitis, hypoparathyroid, wears O2 at 2L/NC during dialysis only, hemorrhoids -have caused anemia in past, hyperkalemia Last Myocardial Infarction Date:: 05/08/16 History of Any Multi-Drug Resistant Organisms: None Reported Past Surgical History: Coronary Bypass/CABG, Heart Catheterization, Heart Catheterization With Stent Additional Past Surgical History / Comment(s): 07/05/16 cardiac cath-tx medially, PREVIOUS STENTS TO CIRC AND LAD-HAD REOCCLUSION THEN HAD 3 VESSEL CABG, PTCAs, AV fistula R arm, colonoscopy-normal, bilateral cataract removal with lens implants, bilateral eye laser sx to remove fluid. Past Anesthesia/Blood Transfusion Reactions: Previous Problems w/ Anesthesia Additional Past Anesthesia/Blood Transfusion Reaction / Comment(s): POST OP DELIRIUM/AGITATION/PSYCHOSIS-RESOLVED. Pt states she had a problem with hypotension last time she received versed. Date of Last Stent Placement:: 05/08/16 Past Psychological History: Depression Additional Psychological History / Comment(s): Pt lives with her spouse in a 2 story home that has 2 porch steps. 1 pet cat. pt has a cane,walker,w/c,shower chair if needed and a nebulizer. Spouse manages her medications. They have been 39 yrs. She states her depression has improved with Zoloft and she is going to her daughters and spending time with her grandchildren. Smoking Status: Never smoker Past Alcohol Use History: None Reported Past Drug Use History: None Reported - Past Family History Mother Family Medical History: Diabetes Mellitus, Myocardial Infarction ([place]), Thyroid Disorder Additional Family Medical History / Comment(s): CABG, gout, hypothyroid. Mother is 80yrs old. Sister(s) Family Medical History: Diabetes Mellitus, Thyroid Disorder Father Family Medical History: Diabetes Mellitus, Myocardial Infarction ([place]) Additional Family Medical History / Comment(s): Father at the age of 67yrs of a [place] Medications and Allergies Home Medications Medication Instructions Recorded Confirmed Type Allopurinol [Zyloprim] 100 mg PO DAILY@0900 11/15/14 11/01/16 History Gabapentin [Neurontin] 100 mg PO BID@0900,2100 11/15/14 11/01/16 History Omeprazole [PriLOSEC] 20 mg PO BID@0900,2100 01/31/15 11/01/16 History Insulin Glargine [Lantus] 30 unit SQ HS 03/03/15 11/01/16 History Loperamide [Imodium] 2 mg PO QID PRN 03/03/15 11/01/16 History Mv-Min/Vit C/Glu/Karla HCl/Hc124 1 tab PO QID PRN 03/03/15 11/01/16 History [Airborne Tablet Chewable] Sertraline [Zoloft] 50 mg PO DAILY 03/03/15 11/01/16 History Clopidogrel [Plavix] 75 mg PO DAILY 04/23/15 11/01/16 History Aspirin [Adult Low Dose Aspirin EC] 81 mg PO HS 05/06/16 11/01/16 History Calcium Acetate [PhosLo] 2,001 mg PO AC-TID 05/06/16 11/01/16 History Cinacalcet HCl [Sensipar] 30 mg PO HS 05/06/16 11/01/16 History Furosemide [Lasix] 80 mg PO BID 05/06/16 11/01/16 History Insulin Aspart [NovoLOG] See Protocol SQ AC-TID 05/06/16 11/01/16 History Slow-Mag 71.5mg 143 mg PO BID 05/06/16 11/01/16 History Sodium Bicarbonate Tab 650 mg PO BID 05/06/16 11/01/16 History Isosorbide Mononitrate ER [Imdur] 30 mg PO QAM 06/24/16 11/01/16 History Calcium Acetate [PhosLo] 667 mg PO HS 08/02/16 11/01/16 History Acetaminophen Tab [Tylenol] 650 mg PO Q6HR PRN 10/02/16 11/01/16 History Allergies Allergy/AdvReac Type Severity Reaction Status Date / Time adhesive Allergy Rash/Hives Verified 11/01/16 12:08 cephalexin monohydrate Allergy Rash/Hives Verified 11/01/16 12:08 [From Keflex] hydromorphone HCl Allergy Hallucinati Verified 11/01/16 12:08 [From Dilaudid] ons iodine Allergy Rash/Hives Verified 11/01/16 12:08 Penicillins Allergy Unknown Verified 11/01/16 12:08 Childhood povidone-iodine Allergy Unknown Verified 11/01/16 12:08 [From Betadine] shellfish derived [Shrimp] Allergy Rash/Hives Verified 11/01/16 12:08 soap [From Betadine] Allergy Unknown Verified 11/01/16 12:08 fentanyl AdvReac Unknown Verified 11/01/16 12:08 hydrocodone bitartrate AdvReac Itching Verified 11/01/16 12:08 [From Vicodin] midazolam [From Versed] AdvReac Unknown Verified 11/01/16 12:08 morphine AdvReac Hallucinati Verified 11/01/16 12:08 ons tramadol AdvReac Itching Verified 11/01/16 12:08 artifical sweetener AdvReac Unknown Uncoded 11/01/16 11:05 Physical Exam Vitals: Vital Signs Temp Pulse Pulse Resp BP BP Pulse Ox 11/02/16 07:34 98.3 F 78 16 106/53 96 11/02/16 04:04 97.9 F 77 18 111/54 95 11/02/16 03:30 18 11/01/16 23:45 97.9 F 82 18 108/53 95 11/01/16 23:09 18 11/01/16 20:00 97.9 F 83 18 115/58 95 11/01/16 19:50 18 11/01/16 15:57 18 11/01/16 15:20 97.4 F L 74 16 119/55 95 11/01/16 15:00 97.7 F 87 18 111/56 97 11/01/16 13:59 76 18 119/62 98 11/01/16 13:28 78 18 120/59 99 11/01/16 12:04 79 16 122/60 95 Intake and Output 11/01/16 11/02/16 11/02/16 22:59 06:59 14:59 Intake Total 382 430 236 Balance 382 430 236 Intake: IV 140 Heparin Sodium,Porcine/ 140 D5w Pmx 25,000 unit In Dextrose/Water 1 500ml. bag @ 11.14 UNITS/KG/HR 20 mls/hr IV .Q24H MUKUND Rx #:[id number] Intake, IV Titration 232 140 Amount Heparin Sodium,Porcine/ 152 D5w Pmx 25,000 unit In Dextrose/Water 1 500ml. bag @ 11.14 UNITS/KG/HR 20 mls/hr IV .Q24H [facility]UKUND Rx #:[id number] Sodium Chloride 0.9% 1, 80 140 000 ml @ 20 mls/hr IV . Q24H [facility]UKUND Rx#:[id number] Oral 150 150 236 Other: Voiding Method Toilet Toilet Toilet # Voids 1 2 Weight 89.3 kg Head normocephalic Neck supple Lungs clear to auscultation bilaterally no wheezing or crackles Heart regular rate and rhythm S1-S2, no rub or gallop Abdomen is soft nontender nondistended positive bowel sounds no hepatosplenomegaly Extremities no edema Neuro alert and orientated to 3 Results CBC & Chem 7: 11/01/16 11:35 06/14/17 11:35 Labs: Abnormal Lab Results - Last 24 Hours (Table) 11/01/16 11/01/16 11/01/16 Range/Units 11:35 11:35 17:05 RDW 17.7 H (11.5-15.5) % APTT (22.0-30.0) sec Chloride 94 L (98-107) mmol/L Carbon Dioxide 32 H (22-30) mmol/L BUN 23 H (7-17) mg/dL Creatinine 4.00 H (0.52-1.04) mg/dL POC Glucose (mg/dL) 159 H (75-99) mg/dL Hemoglobin A1c (4.2-6.1) % Alkaline Phosphatase 209 H (38-126) U/L Triglycerides (<150) mg/dL 11/01/16 11/01/16 11/01/16 Range/Units 17:08 20:44 22:04 RDW (11.5-15.5) % APTT 31.6 H (22.0-30.0) sec Chloride (98-107) mmol/L Carbon Dioxide (22-30) mmol/L BUN (7-17) mg/dL Creatinine (0.52-1.04) mg/dL POC Glucose (mg/dL) 274 H (75-99) mg/dL Hemoglobin A1c 7.0 H (4.2-6.1) % Alkaline Phosphatase (38-126) U/L Triglycerides (<150) mg/dL 11/02/16 11/02/16 11/02/16 Range/Units 05:27 05:27 06:47 RDW (11.5-15.5) % APTT 46.8 H (22.0-30.0) sec Chloride (98-107) mmol/L Carbon Dioxide (22-30) mmol/L BUN (7-17) mg/dL Creatinine (0.52-1.04) mg/dL POC Glucose (mg/dL) 180 H (75-99) mg/dL Hemoglobin A1c (4.2-6.1) % Alkaline Phosphatase (38-126) U/L Triglycerides 465 H (<150) mg/dL Thrombosis Risk Factor Assmnt - Choose All That Apply Any of the Below Risk Factors Present?: Yes Each Factor Represents 1 point: Acute ID, Obesity (BMI >25) Other Risk Factors: No Other congenital or acquired thrombophilia - If yes, enter type in comment: No Thrombosis Risk Factor Assessment Total Risk Factor Score: 2 Thrombosis Risk Factor Assessment Level: Low Risk Assessment and Plan Plan: 1. Transient chest pain and bradycardia during dialysis. Now resolved. EKG showing a normal sinus rhythm. Troponin negative 3 sets. No evidence of bradycardia on telemetry. Patient evaluated by cardiology. They felt that there was no evidence to suggest an acute coronary syndrome and the patient could be discharged and to continue with current therapy. They also noted that her chest discomfort could be related to small branches that had been chronically occluded. She'll follow-up with cardiology outpatient. 2. End-stage renal disease on hemodialysis 3. History of coronary artery disease with previous coronary artery bypass grafting 4. Hyperlipidemia with triglyceride levels in the 400s. Discussed low-fat low- cholesterol diet. Continue statin 5. Diabetes mellitus type 2 Time with Patient: Greater than 30 (Greater than 50% of the total time spent in counseling and coordination of care.I performed an examination of the patient and discussed their management with the physician Feller Machine Operator. I have reviewed the Physician Feller Machine Operator's notes and agree with the documented findings and plan of care)
--- NOTE | 2016-11-02 11:32 | P.DS ---
Providers Date of admission: 11/01/16 14:31 Expected date of discharge: 11/02/16 Attending physician: Kyle Campos Consults: 11/01/16 14:31 Consult Physician Urgent Consulting Provider: Song Rothman Consult Reason/Comments: Atypical chest pain history of acute coronary syndrome Do you want consulting provider notified?: Yes Primary care physician: Kyle [facility] Course: Discharge diagnosis 1. Transient chest pain and bradycardia during dialysis. Now resolved. EKG showing a normal sinus rhythm. Troponin negative 3 sets. No evidence of bradycardia on telemetry. Patient evaluated by cardiology. They felt that there was no evidence to suggest an acute coronary syndrome and the patient could be discharged and to continue with current therapy. They also noted that her chest discomfort could be related to small branches that had been chronically occluded. She'll follow-up with cardiology outpatient. 2. End-stage renal disease on hemodialysis 3. History of coronary artery disease with previous coronary artery bypass grafting 4. Hyperlipidemia with triglyceride levels in the 400s. Discussed low-fat low- cholesterol diet. Continue statin 5. Diabetes mellitus type 2 Hospital course This is a 61-year-old female with a known history of coronary artery disease with previous myocardial infarction and coronary artery bypass grafting, diabetes mellitus, hyperlipidemia, chronic kidney disease and hypothyroidism. Patient was undergoing her dialysis treatment yesterday when she developed some chest pain in the center of her chest that went to the left shoulder. Also she became bradycardic with a heart rate in the 40s. She completed most of her dialysis treatment except for the last 20 minutes. Patient reports blood work after dialysis was good. However she was told to go to the emergency room because of the chest pain and low heart rate. Patient was asymptomatic. She is eager for discharge home. She denies any chest pain heart palpitations. She denies any nausea or vomiting. Denies any dizziness. Denies any bowel movement changes urinary symptoms fevers chills or sweats. EKG had shown a normal sinus rhythm. Chest x-ray can't irregular small left pleural effusion. Patient was seen evaluated by cardiology they are recommending discharge and home and to continue with current cardiac medications. They felt that there was no evidence of any acute coronary syndrome. Patient is chest pain-free. Patient's heart rate is been in 70s and 80s throughout her stay here. She is scheduled for her dialysis at the dialysis center tomorrow. Patient is medical stable for discharge home. Please refer to chart for any further details. Patient will follow-up with both Dr. Campos and cardiology in 1 week Patient Condition at Discharge: Stable Plan - Discharge Summary New Discharge Prescriptions: Continue Gabapentin [Neurontin] 100 mg PO BID@0900,2100 Allopurinol [Zyloprim] 100 mg PO DAILY@0900 Nitroglycerin Sl Tabs [Nitrostat] 0.4 mg SUBLINGUAL Q5M PRN #25 tab PRN Reason: Chest Pain Omeprazole [PriLOSEC] 20 mg PO BID@0900,2100 Insulin Glargine [Lantus] 30 unit SQ HS Mv-Min/Vit C/Glu/Karla HCl/Hc124 [Airborne Tablet Chewable] 1 tab PO QID PRN PRN Reason: [facility] Loperamide [Imodium] 2 mg PO QID PRN PRN Reason: Diarrhea Sertraline [Zoloft] 50 mg PO DAILY Clopidogrel [Plavix] 75 mg PO DAILY Insulin Aspart [NovoLOG] See Protocol SQ AC-TID Calcium Acetate [PhosLo] 2,001 mg PO AC-TID Slow-Mag 71.5mg 143 mg PO BID Cinacalcet HCl [Sensipar] 30 mg PO HS Sodium Bicarbonate Tab 650 mg PO BID Furosemide [Lasix] 80 mg PO BID Aspirin [Adult Low Dose Aspirin EC] 81 mg PO HS Isosorbide Mononitrate ER [Imdur] 30 mg PO QAM Montelukast [Singulair] 10 mg PO HS #30 tab Calcium Acetate [PhosLo] 667 mg PO HS Hydrocortisone Suppository [Anusol-Hc] 25 mg RECTAL DAILY #30 supp Midodrine [ProAmatine] 10 mg PO AC-TID #90 tab Acetaminophen Tab [Tylenol] 650 mg PO Q6HR PRN PRN Reason: Pain Atorvastatin [Lipitor] 80 mg PO HS tab Discharge Medication List Allopurinol [Zyloprim] 100 mg PO DAILY@0900 11/15/14 [History] Gabapentin [Neurontin] 100 mg PO BID@0900,2100 11/15/14 [History] Nitroglycerin Sl Tabs [Nitrostat] 0.4 mg SUBLINGUAL Q5M PRN #25 tab 11/19/14 [Rx ] Omeprazole [PriLOSEC] 20 mg PO BID@0900,2100 01/31/15 [History] Insulin Glargine [Lantus] 30 unit SQ HS 03/03/15 [History] Loperamide [Imodium] 2 mg PO QID PRN 03/03/15 [History] Mv-Min/Vit C/Glu/Karla HCl/Hc124 [Airborne Tablet Chewable] 1 tab PO QID PRN 03/03 [History] Sertraline [Zoloft] 50 mg PO DAILY 03/03/15 [History] Clopidogrel [Plavix] 75 mg PO DAILY 04/23/15 [History] Aspirin [Adult Low Dose Aspirin EC] 81 mg PO HS 05/06/16 [History] Calcium Acetate [PhosLo] 2,001 mg PO AC-TID 05/06/16 [History] Cinacalcet HCl [Sensipar] 30 mg PO HS 05/06/16 [History] Furosemide [Lasix] 80 mg PO BID 05/06/16 [History] Insulin Aspart [NovoLOG] See Protocol SQ AC-TID 05/06/16 [History] Slow-Mag 71.5mg 143 mg PO BID 05/06/16 [History] Sodium Bicarbonate Tab 650 mg PO BID 05/06/16 [History] Isosorbide Mononitrate ER [Imdur] 30 mg PO QAM 06/24/16 [History] Montelukast [Singulair] 10 mg PO HS #30 tab 06/30/16 [Rx] Calcium Acetate [PhosLo] 667 mg PO HS 08/02/16 [History] Hydrocortisone Suppository [Anusol-Hc] 25 mg RECTAL DAILY #30 supp 08/07/16 [Rx] Midodrine [ProAmatine] 10 mg PO AC-TID #90 tab 08/07/16 [Rx] Acetaminophen Tab [Tylenol] 650 mg PO Q6HR PRN 10/02/16 [History] Atorvastatin [Lipitor] 80 mg PO HS tab 10/03/16 [Rx] Follow up Appointment(s)/Referral(s): Kyle Campos MD [Primary Care Provider] - 1 Week Song Rothman MD [STAFF PHYSICIAN] - 1 Week Activity/Diet/Wound Care/Special Instructions: Diet: cardiac, renal, diabetic, low fat low choleterol Activity: as tolerated Hemodialysis scheduled for tomorrow Discharge Disposition: HOME SELF-CARE
[2016-11-02] MEDS ORDERED: MAGNESIUM OXIDE 400 MG TAB PO SCH (12:00)
[2016-11-02 12:15] LABS: Glucose,Whole Blood 219 mg/dL (75-99)
== END 2016-11-02 13:29 | disposition home or self-care (01) ==
LOC: EC 10:56 → 3OBS 14:31
PROVIDERS: ADMIT Internal Medicine; ATTEND Internal Medicine
DX: R07.89 Other chest pain (principal); R00.1 Bradycardia, unspecified; I12.0 Hypertensive chronic kidney disease with stage 5 chronic kidney disease or end stage renal disease; N18.6 End stage renal disease; Z99.2 Dependence on renal dialysis; I25.10 Atherosclerotic heart disease of native coronary artery without angina pectoris; Z95.1 Presence of aortocoronary bypass graft; Z95.5 Presence of coronary angioplasty implant and graft; E78.5 Hyperlipidemia, unspecified; Z79.899 Other long term (current) drug therapy; Z79.4 Long term (current) use of insulin; Z79.02 Long term (current) use of antithrombotics/antiplatelets; Z79.82 Long term (current) use of aspirin; Z88.1 Allergy status to other antibiotic agents; Z88.3 Allergy status to other anti-infective agents; Z88.5 Allergy status to narcotic agent; Z88.0 Allergy status to penicillin; Z91.013 Allergy to seafood; Z88.8 Allergy status to other drugs, medicaments and biological substances; Z91.018 Allergy to other foods; Z91.048 Other nonmedicinal substance allergy status; I25.2 Old myocardial infarction; M10.9 Gout, unspecified; E11.40 Type 2 diabetes mellitus with diabetic neuropathy, unspecified; E20.9 Hypoparathyroidism, unspecified; E11.22 Type 2 diabetes mellitus with diabetic chronic kidney disease; F32.9 Major depressive disorder, single episode, unspecified; E03.9 Hypothyroidism, unspecified; M79.602 Pain in left arm; I08.1 Rheumatic disorders of both mitral and tricuspid valves
CPT/HCPCS: 99285; 96374; 96376; 36415; 93005; 80061; 80053; 83036; 82550; 82553; 83735; 84484; 85025; 85610; 85730 ×2; 71020; G0378 ×2; J1644 ×2

== ENCOUNTER 2016-11-27 09:08 | Inpatient (IN) | payer MEDICARE, BC ==
--- NOTE | 2016-11-27 11:24 | XR ---
EXAMINATION TYPE: XR chest 2V DATE OF EXAM: 11/27/2016 COMPARISON: 11/01/2016 HISTORY: 61-year-old female with chest pain TECHNIQUE: Frontal and lateral views FINDINGS: Median sternotomy wires with post-CABG clips in the mediastinum. Heart mildly enlarged. Mild intersti tial prominence may be secondary to magnification from patient's large body habitus and AP technique. However, the lateral view does show a small left effusion with adjacent opacity. IMPRESSION: 1. Mild cardiomegaly. 2. Correlate to exclude mild pulmonary vascular congestion. 3. Small left pleural effusion with adjacent atelectasis and/or consolidation seen on the lateral vie w.
[2016-11-27 11:38] LABS: Anisocytosis Slight; Basophils % (A) 0 %; CH 30.1; Eosinophils # (A) 0.2 k/uL (0-0.7); Eosinophils % (A) 3 %; HCT 33.3 % (34.0-46.0); HDW 3.28; HGB 10.9 gm/dL (11.4-16.0); Luc # (Auto) 0.06; Luc % (Auto) 1; Lymphocytes % (A) 12 %; MCH 30.1 pg (25.0-35.0); MCHC 32.8 g/dL (31.0-37.0); MCV 91.6 fL (80.0-100.0); Mean Platelet Volume 8.3; Monocytes # (A) 0.3 k/uL (0-1.0); Monocytes % (A) 4 %; Neutrophils % (A) 81 %; RBC 3.64 m/uL (3.80-5.40); RDW 18.1 % (11.5-15.5); WBC 8.6 k/uL (3.8-10.6); WBC (Perox) 8.52
[2016-11-27 11:43] LABS: Calcium 9.2 mg/dL (8.4-10.2); Magnesium 1.8 mg/dL (1.6-2.3); Potassium 3.6 mmol/L (3.5-5.1); Total Bilirubin 0.7 mg/dL (0.2-1.3); Total Protein 6.8 g/dL (6.3-8.2)
[2016-11-27 11:48] LABS: Partial Thromboplastin Time 24.1 sec (22.0-30.0)
[2016-11-27 11:50] LABS: Prothrombin Time 10.2 sec (9.0-12.0)
[2016-11-27 12:11] LABS: Creatine Kinase MB 1.1 ng/mL (0.0-2.4)
[2016-11-27 12:28] LABS: Troponin I 0.044 ng/mL (0.000-0.034)
[2016-11-27] MEDS ORDERED: NALOXONE 0.4 MG/ML 1 ML VIAL IV PRN (14:18)
[2016-11-27] MEDS ORDERED: ONDANSETRON 4 MG/2 ML VIAL IVP PRN (14:18)
--- NOTE | 2016-11-27 14:27 | ED ---
General Adult HPI - General Chief complaint: Chest Pain Stated complaint: chest pain/slow heart rate Time Seen by Provider: 11/27/16 10:16 Source: patient, family, RN notes reviewed Mode of arrival: wheelchair Limitations: no limitations - History of Present Illness Initial comments: 61-year-old female with end-stage renal disease who receives hemodialysis Sunday presenting with an episode of bradycardia and hypotension while at dialysis. Patient received approximately 3 hours of a four -hour treatment she became lightheaded and diaphoretic. She denied chest pain at that time. She did state her heart rate went into the mid 30s and her blood pressure dropped. Patient has had this on several other occasions during dialysis. She also has a past medical history diabetes and coronary artery disease status post stenting and coronary bypass graft. Patient denies fever, denies cough, denies chest pain. Patient denies abdominal pain. Denies nausea vomiting or diarrhea. - Related Data Home Medications Medication Instructions Recorded Confirmed Allopurinol [Zyloprim] 100 mg PO DAILY@0900 11/15/14 11/27/16 Gabapentin [Neurontin] 100 mg PO BID@0900,209911/15/14 11/27/16 Omeprazole [PriLOSEC] 20 mg PO BID@0900,2100 01/31/15 11/27/16 Insulin Glargine [Lantus] 35 unit SQ 03/03/15 11/27/16 Loperamide [Imodium] 2 mg PO QID PRN 03/03/15 11/27/16 Mv-Min/Vit C/Glu/Karla HCl/Hc124 1 tab PO QID PRN 03/03/15 11/27/16 [Airborne Tablet Chewable] Sertraline [Zoloft] 50 mg PO DAILY 03/03/15 11/27/16 Clopidogrel [Plavix] 75 mg PO DAILY 04/23/15 11/27/16 Aspirin [Adult Low Dose Aspirin EC] 81 mg PO HS 05/06/16 11/27/16 Calcium Acetate [PhosLo] 2,001 mg PO AC-TID 05/06/16 11/27/16 Cinacalcet HCl [Sensipar] 30 mg PO HS 05/06/16 11/27/16 Furosemide [Lasix] 80 mg PO BID 05/06/16 11/27/16 Insulin Aspart [NovoLOG] See Protocol SQ AC-TID 05/06/16 11/27/16 Slow-Mag 71.5mg 143 mg PO BID 05/06/16 11/27/16 Sodium Bicarbonate Tab 650 mg PO BID 05/06/16 11/27/16 Isosorbide Mononitrate ER [Imdur] 30 mg PO QAM 06/24/16 11/27/16 Calcium Acetate [PhosLo] 667 mg PO HS 08/02/16 11/27/16 Acetaminophen Tab [Tylenol] 650 mg PO Q6HR PRN 10/02/16 11/27/16 Previous Rx's Medication Instructions Recorded Nitroglycerin Sl Tabs [Nitrostat] 0.4 mg SUBLINGUAL Q5M PRN #25 tab 11/19/14 Montelukast [Singulair] 10 mg PO HS #30 tab 06/30/16 Hydrocortisone Suppository 25 mg RECTAL DAILY #30 supp 08/07/16 [Anusol-Hc] Midodrine [ProAmatine] 10 mg PO AC-TID #90 tab 08/07/16 Atorvastatin [Lipitor] 80 mg PO HS tab 10/03/16 Allergies Allergy/AdvReac Type Severity Reaction Status Date / Time adhesive Allergy Rash/Hives Verified 11/27/16 10:46 cephalexin monohydrate Allergy Rash/Hives Verified 11/27/16 10:46 [From Keflex] hydromorphone HCl Allergy Hallucinati Verified 11/27/16 10:46 [From Dilaudid] ons iodine Allergy Rash/Hives Verified 11/27/16 10:46 Penicillins Allergy Unknown Verified 11/27/16 10:46 Childhood povidone-iodine Allergy Unknown Verified 11/27/16 10:46 [From Betadine] shellfish derived [Shrimp] Allergy Rash/Hives Verified 11/27/16 10:46 soap [From Betadine] Allergy Unknown Verified 11/27/16 10:46 fentanyl AdvReac Unknown Verified 11/27/16 10:46 hydrocodone bitartrate AdvReac Itching Verified 11/27/16 10:46 [From Vicodin] midazolam [From Versed] AdvReac Unknown Verified 11/27/16 10:46 morphine AdvReac Hallucinati Verified 11/27/16 10:46 ons tramadol AdvReac Itching Verified 11/27/16 10:46 artifical sweetener AdvReac Unknown Uncoded 11/27/16 09:38 Review of Systems ROS Statement: Those systems with pertinent positive or pertinent negative responses have been documented in the HPI. ROS Other: All systems not noted in ROS Statement are negative. Past Medical History Past Medical History: Coronary Artery Disease (CAD), Diabetes Mellitus, Hyperlipidemia, Hypertension, Myocardial Infarction (SD), Renal Disease, Thyroid Disorder Additional Past Medical History / Comment(s): MIs, IDDM type II, GOUT R foot, diabetic neuropathy bilateral feet and now "all over", chronic ANEMIA, MITRAL and TRICUSID REGURGITATION, esrd gets hemodialysis mbs-stw-lesb., UTIs, bronchitis, hypoparathyroid, wears O2 at 2L/NC during dialysis only, hemorrhoids -have caused anemia in past, hyperkalemia Last Myocardial Infarction Date:: 05/08/16 History of Any Multi-Drug Resistant Organisms: None Reported Past Surgical History: Coronary Bypass/CABG, Heart Catheterization, Heart Catheterization With Stent Additional Past Surgical History / Comment(s): 07/05/16 cardiac cath-tx medially, PREVIOUS STENTS TO CIRC AND LAD-HAD REOCCLUSION THEN HAD 3 VESSEL CABG, PTCAs, AV fistula R arm, colonoscopy-normal, bilateral cataract removal with lens implants, bilateral eye laser sx to remove fluid. Past Anesthesia/Blood Transfusion Reactions: Previous Problems w/ Anesthesia Additional Past Anesthesia/Blood Transfusion Reaction / Comment(s): POST OP DELIRIUM/AGITATION/PSYCHOSIS-RESOLVED. Pt states she had a problem with hypotension last time she received versed. Date of Last Stent Placement:: 05/08/16 Past Psychological History: Depression Smoking Status: Never smoker Past Alcohol Use History: None Reported Past Drug Use History: None Reported - Past Family History Mother Family Medical History: Diabetes Mellitus, Myocardial Infarction (SD), Thyroid Disorder Additional Family Medical History / Comment(s): CABG, gout, hypothyroid. Mother is 80yrs old. Sister(s) Family Medical History: Diabetes Mellitus, Thyroid Disorder Father Family Medical History: Diabetes Mellitus, Myocardial Infarction (SD) Additional Family Medical History / Comment(s): Father at the age of 67yrs of a SD General Exam Limitations: no limitations General appearance: alert, in no apparent distress Head exam: Present: atraumatic, normocephalic Eye exam: Present: normal appearance, PERRL ENT exam: Present: normal exam, mucous membranes moist Neck exam: Present: tenderness, full ROM Respiratory exam: Present: normal lung sounds bilaterally, rales. Absent: respiratory distress Cardiovascular Exam: Present: regular rate, normal rhythm GI/Abdominal exam: Present: soft. Absent: distended, tenderness Extremities exam: Present: other (Trace pedal edema bilateral lower extremities , right upper extremity AV shunt) Neurological exam: Present: alert, oriented X3 Psychiatric exam: Present: normal affect, normal mood Skin exam: Present: warm, dry. Absent: diaphoretic Course Vital Signs 11/27/16 11/27/16 11/27/16 09:36 11:24 13:30 Temperature 97.8 F Pulse Rate 82 91 81 Respiratory 20 18 18 Rate Blood Pressure 128/65 99/54 121/54 O2 Sat by Pulse 97 95 98 Oximetry EKG Findings - EKG Comments: EKG Findings:: EKG reveals sinus rhythm with frequent PVCs, ventricular rate 94 , CO interval 156, QRS duration 108, there is prolonged QT at 525. There is no definitive signs of ischemia, no T-wave abnormality, no ST segment elevation or depression. Medical Decision Making - Medical Decision Making 7-year-old female presents with bradycardia, hypotension and near syncopal episode while receiving hemodialysis. At the time my evaluation patient was asymptomatic. Heart rate was in the 90s. Blood pressure stable. Laboratory studies do reveal an elevated troponin however given history of end-stage renal disease and poor renal clearance this will be trended to evaluate for ongoing ischemia. Chest x-ray does show some mild pulmonary vascular congestion. Diagnosis: Near-syncope, hypotension, bradycardia, elevated troponin - Lab Data Result diagrams: 11/27/16 10:00 11/27/16 10:00 Lab Results 11/27/16 11/27/16 11/27/16 Range/Units 10:00 10:00 10:00 WBC 8.6 (3.8-10.6) k/uL RBC 3.64 L (3.80-5.40) m/uL Hgb 10.9 L (11.4-16.0) gm/dL Hct 33.3 L (34.0-46.0) % MCV 91.6 (80.0-100.0) fL MCH 30.1 (25.0-35.0) pg MCHC 32.8 (31.0-37.0) g/dL RDW 18.1 H (11.5-15.5) % Plt Count 150 (150-450) k/uL Neutrophils % 81 % Lymphocytes % 12 % Monocytes % 4 % Eosinophils % 3 % Basophils % 0 % Neutrophils # 7.0 (1.3-7.7) k/uL Lymphocytes # 1.0 (1.0-4.8) k/uL Monocytes # 0.3 (0-1.0) k/uL Eosinophils # 0.2 (0-0.7) k/uL Basophils # 0.0 (0-0.2) k/uL Anisocytosis Slight PT (9.0-12.0) sec INR (<1.1) APTT (22.0-30.0) sec Sodium 140 (137-145) mmol/L Potassium 3.6 (3.5-5.1) mmol/L Chloride 96 L (98-107) mmol/L Carbon Dioxide 28 (22-30) mmol/L Anion Gap 16 mmol/L BUN 32 H (7-17) mg/dL Creatinine 5.06 H* (0.52-1.04) mg/dL Est GFR (MDRD) Af Amer 11 (>60 ml/min/1.73 sqM) Est GFR (MDRD) Non-Af 9 (>60 ml/min/1.73 sqM) Glucose 156 H (74-99) mg/dL Calcium 9.2 (8.4-10.2) mg/dL Magnesium 1.8 (1.6-2.3) mg/dL Total Bilirubin 0.7 (0.2-1.3) mg/dL AST 18 (14-36) U/L ALT 21 (9-52) U/L Alkaline Phosphatase 182 H (38-126) U/L Total Creatine Kinase 39 (30-135) U/L CK-MB (CK-2) 1.1 (0.0-2.4) ng/mL CK-MB (CK-2) Rel Index 2.8 Troponin I 0.044 H* (0.000-0.034) ng/mL Total Protein 6.8 (6.3-8.2) g/dL Albumin 4.1 (3.5-5.0) g/dL 11/27/16 Range/Units 10:00 WBC (3.8-10.6) k/uL RBC (3.80-5.40) m/uL Hgb (11.4-16.0) gm/dL Hct (34.0-46.0) % MCV (80.0-100.0) fL MCH (25.0-35.0) pg MCHC (31.0-37.0) g/dL RDW (11.5-15.5) % Plt Count (150-450) k/uL Neutrophils % % Lymphocytes % % Monocytes % % Eosinophils % % Basophils % % Neutrophils # (1.3-7.7) k/uL Lymphocytes # (1.0-4.8) k/uL Monocytes # (0-1.0) k/uL Eosinophils # (0-0.7) k/uL Basophils # (0-0.2) k/uL Anisocytosis PT 10.2 (9.0-12.0) sec INR 1.0 (<1.1) APTT 24.1 (22.0-30.0) sec Sodium (137-145) mmol/L Potassium (3.5-5.1) mmol/L Chloride (98-107) mmol/L Carbon Dioxide (22-30) mmol/L Anion Gap mmol/L BUN (7-17) mg/dL Creatinine (0.52-1.04) mg/dL Est GFR (MDRD) Af Amer (>60 ml/min/1.73 sqM) Est GFR (MDRD) Non-Af (>60 ml/min/1.73 sqM) Glucose (74-99) mg/dL Calcium (8.4-10.2) mg/dL Magnesium (1.6-2.3) mg/dL Total Bilirubin (0.2-1.3) mg/dL AST (14-36) U/L ALT (9-52) U/L Alkaline Phosphatase (38-126) U/L Total Creatine Kinase (30-135) U/L CK-MB (CK-2) (0.0-2.4) ng/mL CK-MB (CK-2) Rel Index Troponin I (0.000-0.034) ng/mL Total Protein (6.3-8.2) g/dL Albumin (3.5-5.0) g/dL Disposition Clinical Impression: Syncope, ESRD (end stage renal disease) on dialysis Disposition: ADMITTED IP TO THIS [facility] Condition: Stable Referrals: Kyle Campos MD [Primary Care Provider] - 1-2 days Decision to Admit Reason: Admit from EC Decision Date: 11/27/16 Decision Time: 13:00
[2016-11-27] MEDS ORDERED: [UNRECOGNIZED DRUG - OTHER] PO PRN (15:21)
[2016-11-27] MEDS ORDERED: LOPERAMIDE 2 MG CAP PO PRN (15:21)
[2016-11-27] MEDS ORDERED: NITROGLYCERIN SL TABS 0.4 MG TAB SUBLINGUAL PRN (15:21)
--- NOTE | 2016-11-27 15:43 | P.HPIM ---
History of Present Illness H&P Date: 11/27/16 Chief Complaint: Hypotension and bradycardia during dialysis This is a 61-year-old female with a known past medical history of coronary artery disease with previous myocardial infarction and coronary artery bypass grafting, diabetes mellitus, hyperlipidemia, chronic kidney disease requires hemodialysis Sunday, and hypothyroidism. Patient has had multiple hospitalizations due to bradycardia and hypotension during dialysis. She is on Midrin. Patient reports she was receiving dialysis today and just was not feeling well. She was lightheaded and dizzy also having chest pains. Patient felt that she was near passing out. Ambulance was called and she was brought into the emergency room. Patient completed 3 out of 4 hours of the hemodialysis. She had become lightheaded and diaphoretic. Heart rate had been down to the 37 and patient reports blood pressures to be as low as 70/30. She received IV fluids in the dialysis center as well as an extra dose of Midrin. On admission patient had a blood pressure 128/65 and heart rate around 82. EKG had shown sinus rhythm with PVCs and prolonged QT interval. Chest x-ray showed mild cardiomegaly with possible mild peripheral vascular congestion and small left pleural effusion with adjacent atelectasis and/or consolidation. Patient denies any fever chills or sweats. Denies any cough. Denies any nausea or vomiting. Denies any bowel movement changes or urinary symptoms. Patient did have a mildly elevated troponin of 0.044. But this also could be related to her chronic kidney disease. Patient is complaining of sore this in the left part of her jaw. There appears to be an ulceration where her dentures rubbing against her gumline. She denies any drainage from that area. Review of Systems Please refer to HPI otherwise unremarkable Past Medical History Past Medical History: Coronary Artery Disease (CAD), Diabetes Mellitus, Hyperlipidemia, Hypertension, Myocardial Infarction ([place]), Renal Disease, Thyroid Disorder Additional Past Medical History / Comment(s): MIs, IDDM type II, GOUT R foot, diabetic neuropathy bilateral feet and now "all over", chronic ANEMIA, MITRAL and TRICUSID REGURGITATION, esrd gets hemodialysis [id number]., UTIs, bronchitis, hypoparathyroid, wears O2 at 2L/NC during dialysis only, hemorrhoids -have caused anemia in past, hyperkalemia Last Myocardial Infarction Date:: 05/08/16 History of Any Multi-Drug Resistant Organisms: None Reported Past Surgical History: Coronary Bypass/CABG, Heart Catheterization, Heart Catheterization With Stent Additional Past Surgical History / Comment(s): 07/05/16 cardiac cath-tx medially, PREVIOUS STENTS TO CIRC AND LAD-HAD REOCCLUSION THEN HAD 3 VESSEL CABG, PTCAs, AV fistula R arm, colonoscopy-normal, bilateral cataract removal with lens implants, bilateral eye laser sx to remove fluid. Past Anesthesia/Blood Transfusion Reactions: Previous Problems w/ Anesthesia Additional Past Anesthesia/Blood Transfusion Reaction / Comment(s): POST OP DELIRIUM/AGITATION/PSYCHOSIS-RESOLVED. Pt states she had a problem with hypotension last time she received versed. Date of Last Stent Placement:: 05/08/16 Past Psychological History: Depression Smoking Status: Never smoker Past Alcohol Use History: None Reported Past Drug Use History: None Reported - Past Family History Mother Family Medical History: Diabetes Mellitus, Myocardial Infarction ([place]), Thyroid Disorder Additional Family Medical History / Comment(s): CABG, gout, hypothyroid. Mother is 80yrs old. Sister(s) Family Medical History: Diabetes Mellitus, Thyroid Disorder Father Family Medical History: Diabetes Mellitus, Myocardial Infarction ([place]) Additional Family Medical History / Comment(s): Father at the age of 67yrs of a [place] Medications and Allergies Home Medications Medication Instructions Recorded Confirmed Type Allopurinol [Zyloprim] 100 mg PO DAILY@0900 11/15/14 11/27/16 History Gabapentin [Neurontin] 100 mg PO BID@0900,2100 11/15/14 11/27/16 History Omeprazole [PriLOSEC] 20 mg PO BID@0900,209901/31/15 11/27/16 History Insulin Glargine [Lantus] 35 unit SQ HS 03/03/15 11/27/16 History Loperamide [Imodium] 2 mg PO QID PRN 03/03/15 11/27/16 History Mv-Min/Vit C/Glu/Karla HCl/Hc124 1 tab PO QID PRN 03/03/15 11/27/16 History [Airborne Tablet Chewable] Sertraline [Zoloft] 50 mg PO DAILY 03/03/15 11/27/16 History Clopidogrel [Plavix] 75 mg PO DAILY 04/23/15 11/27/16 History Aspirin [Adult Low Dose Aspirin EC] 81 mg PO HS 05/06/16 11/27/16 History Calcium Acetate [PhosLo] 2,001 mg PO AC-TID 05/06/16 11/27/16 History Cinacalcet HCl [Sensipar] 30 mg PO HS 05/06/16 11/27/16 History Furosemide [Lasix] 80 mg PO BID 05/06/16 11/27/16 History Insulin Aspart [NovoLOG] See Protocol SQ AC-TID 05/06/16 11/27/16 History Slow-Mag 71.5mg 143 mg PO BID 05/06/16 11/27/16 History Sodium Bicarbonate Tab 650 mg PO BID 05/06/16 11/27/16 History Isosorbide Mononitrate ER [Imdur] 30 mg PO QAM 06/24/16 11/27/16 History Calcium Acetate [PhosLo] 667 mg PO HS 08/02/16 11/27/16 History Acetaminophen Tab [Tylenol] 650 mg PO Q6HR PRN 10/02/16 11/27/16 History Allergies Allergy/AdvReac Type Severity Reaction Status Date / Time adhesive Allergy Rash/Hives Verified 11/27/16 10:46 cephalexin monohydrate Allergy Rash/Hives Verified 11/27/16 10:46 [From Keflex] hydromorphone HCl Allergy Hallucinati Verified 11/27/16 10:46 [From Dilaudid] ons iodine Allergy Rash/Hives Verified 11/27/16 10:46 Penicillins Allergy Unknown Verified 11/27/16 10:46 Childhood povidone-iodine Allergy Unknown Verified 11/27/16 10:46 [From Betadine] shellfish derived [Shrimp] Allergy Rash/Hives Verified 11/27/16 10:46 soap [From Betadine] Allergy Unknown Verified 11/27/16 10:46 fentanyl AdvReac Unknown Verified 11/27/16 10:46 hydrocodone bitartrate AdvReac Itching Verified 11/27/16 10:46 [From Vicodin] midazolam [From Versed] AdvReac Unknown Verified 11/27/16 10:46 morphine AdvReac Hallucinati Verified 11/27/16 10:46 ons tramadol AdvReac Itching Verified 11/27/16 10:46 artifical sweetener AdvReac Unknown Uncoded 11/27/16 09:38 Physical Exam Vitals: Vital Signs Temp Pulse Resp BP Pulse Ox 11/27/16 15:22 97.4 F L 94 18 119/62 99 11/27/16 13:30 81 18 121/54 98 11/27/16 11:24 91 18 99/54 95 11/27/16 09:36 97.8 F 82 20 128/65 97 Intake and Output 11/27/16 11/27/16 11/27/16 06:59 14:59 22:59 Other: Weight 93 kg Patient Weight 11/28/16 06:59 Weight 93 kg Mouth left upper gumline patient has an ulceration yellowish in color tender with palpation no abscess palpable. No drainage. Able to visualize once dentures were removed Head normocephalic Neck supple Lungs clear to auscultation bilaterally no wheezing or crackles Heart regular rate and rhythm S1-S2, no rub or gallop Abdomen is soft mild tenderness along the left side upper abdomen. No skin lesions . nondistended positive bowel sounds no hepatosplenomegaly Extremities no edema Neuro alert and orientated to 3 Results CBC & Chem 7: 11/27/16 10:00 11/27/16 10:00 Labs: Abnormal Lab Results - Last 24 Hours (Table) 11/27/16 11/27/16 11/27/16 Range/Units 10:00 10:00 10:00 RBC 3.64 L (3.80-5.40) m/uL Hgb 10.9 L (11.4-16.0) gm/dL Hct 33.3 L (34.0-46.0) % RDW 18.1 H (11.5-15.5) % Chloride 96 L (98-107) mmol/L BUN 32 H (7-17) mg/dL Creatinine 5.06 H* (0.52-1.04) mg/dL Glucose 156 H (74-99) mg/dL Alkaline Phosphatase 182 H (38-126) U/L Troponin I 0.044 H* (0.000-0.034) ng/mL Assessment and Plan Plan: 1. Bradycardia and hypotension during dialysis. Patient reports receiving IV fluids at dialysis center and an extra dose of Midrin. Blood pressure and heart rate are currently stable. Consult cardiology and nephrology 2. Episode of chest pain during dialysis. Monitor cardiac enzymes. First troponin mildly elevated at 0.044. EKG showing sinus rhythm with PVCs and prolonged QT interval. Last heart catheterization was June 2016 showing triple-vessel coronary artery disease patent stent to the ramus intermedius, patent MICHELLE to LAD and chronic occluded LAD, right coronary artery and left circumflex. Cardiology had recommended medical management at that time. Will await further cardiology recommendations 3. Near syncopal episode possibly related to the bradycardia and hypotension. Last echo in July 2016 shows an EF of 40-45% with severe mitral regurgitation. Continue telemetry monitoring 4. End-stage renal disease hemodialysis on Sunday. Consult nephrology 5. Atelectasis on chest x-ray without pneumonia. White count within normal range patient afebrile and no cough. Start incentive spirometer 6. Diabetes mellitus type 2: Continue her Lantus. Add sliding scale coverage 7. History of coronary artery disease and previous coronary artery bypass grafting and cardiac stents 8. Oral ulcer left upper gum of the mouth. Remove dentures. Add cool solution 9. GI prophylaxis Protonix and DVT prophylaxis subcu heparin Time with Patient: Greater than 30 (Greater than 50% of the total time spent in counseling and coordination of care.I performed an examination of the patient and discussed their management with the physician Pediatric Neuropsychologist. I have reviewed the Physician Pediatric Neuropsychologist's notes and agree with the documented findings and plan of care)
[2016-11-27 16:49] LABS: Glucose,Whole Blood 118 mg/dL (75-99)
[2016-11-27 16:51] LABS: Troponin I 0.053 ng/mL (0.000-0.034)
[2016-11-27] MEDS: INSULIN LISPRO (humaLOG) 300 UNIT/3 ML VIAL SQ SCH ×2 (17:41→21:41)
[2016-11-27] MEDS: MAG HYDROX/AL HYDROX/SIMETH 30 ML, LIDOCAINE VISCOUS 30 ML, diphenhydrAMINE ELIXIR 75 M... PO SCH ×8 (17:44→21:39)
[2016-11-27] MEDS: FUROSEMIDE 80 MG TAB PO SCH (17:45)
[2016-11-27] MEDS: CLINDAMYCIN 150 MG CAP PO SCH ×2 (17:46→21:40)
[2016-11-27] MEDS: CALCIUM ACETATE 667 MG CAP PO SCH ×2 (17:46→21:40)
[2016-11-27] MEDS: MIDODRINE 5 MG TAB PO SCH (17:47)
[2016-11-27 21:04] LABS: Glucose,Whole Blood 221 mg/dL (75-99)
[2016-11-27] MEDS: INSULIN GLARGINE 100 UNIT/ML 10 ML VIAL SQ SCH (21:39)
[2016-11-27] MEDS: MONTELUKAST 10 MG TAB PO SCH (21:40)
[2016-11-27] MEDS: ATORVASTATIN 80 MG TAB PO SCH (21:40)
[2016-11-27] MEDS: PANTOPRAZOLE 40 MG TABLET PO SCH (21:40)
[2016-11-27] MEDS: SODIUM BICARBONATE TAB 650 MG TAB PO SCH (21:40)
[2016-11-27] MEDS: ASPIRIN 81 MG CHEW PO SCH (21:40)
[2016-11-27] MEDS: CINACALCET 30 MG TAB PO SCH (21:40)
[2016-11-27] MEDS: HEPARIN SODIUM,PORCINE 5,000 UNIT/ML 1 ML VIAL SQ SCH (21:41)
[2016-11-27] MEDS: GABAPENTIN 100 MG CAP PO SCH (21:41)
[2016-11-27 21:51] LABS: Hemoglobin A1C 7.2 % (4.2-6.1)
[2016-11-27 23:37] LABS: Creatine Kinase MB 0.9 ng/mL (0.0-2.4)
[2016-11-28 00:19] LABS: Troponin I 0.041 ng/mL (0.000-0.034)
[2016-11-28 05:58] LABS: Glucose,Whole Blood 119 mg/dL (75-99)
[2016-11-28 06:26] LABS: Calcium 8.8 mg/dL (8.4-10.2); Phosphorous 5.6 mg/dL (2.5-4.5); Potassium 3.8 mmol/L (3.5-5.1)
[2016-11-28 06:29] LABS: Anisocytosis Slight; Basophils % (A) 1 %; CH 29.3; Eosinophils # (A) 0.2 k/uL (0-0.7); Eosinophils % (A) 2 %; HCT 32.6 % (34.0-46.0); HDW 3.26; HGB 10.7 gm/dL (11.4-16.0); Hypochromasia Slight; Luc % (Auto) 1; Lymphocytes # (A) 1.3 k/uL (1.0-4.8); Lymphocytes % (A) 16 %; MCH 30.4 pg (25.0-35.0); MCV 92.1 fL (80.0-100.0); Monocytes # (A) 0.4 k/uL (0-1.0); Monocytes % (A) 4 %; Neutrophils # (A) 6.4 k/uL (1.3-7.7); Neutrophils % (A) 76 %; RBC 3.54 m/uL (3.80-5.40); RDW 17.8 % (11.5-15.5); WBC 8.4 k/uL (3.8-10.6)
[2016-11-28] MEDS: CALCIUM ACETATE 667 MG CAP PO SCH ×4 (06:30→21:05)
[2016-11-28] MEDS: MIDODRINE 5 MG TAB PO SCH ×3 (06:31→17:03)
[2016-11-28] MEDS: INSULIN LISPRO (humaLOG) 300 UNIT/3 ML VIAL SQ SCH ×4 (06:31→21:06)
[2016-11-28 06:42] LABS: Creatine Kinase MB 0.9 ng/mL (0.0-2.4)
[2016-11-28 06:46] LABS: Troponin I 0.05 ng/mL (0.000-0.034)
[2016-11-28] MEDS: SODIUM BICARBONATE TAB 650 MG TAB PO SCH ×2 (08:19→21:05)
[2016-11-28] MEDS: CLINDAMYCIN 150 MG CAP PO SCH ×3 (08:19→21:05)
[2016-11-28] MEDS: CLOPIDOGREL 75 MG TAB PO SCH (08:20)
[2016-11-28] MEDS: PANTOPRAZOLE 40 MG TABLET PO SCH ×2 (08:20→21:05)
[2016-11-28] MEDS: GABAPENTIN 100 MG CAP PO SCH ×2 (08:20→21:05)
[2016-11-28] MEDS: HYDROCORTISONE SUPPOSITORY 25 MG SUPP RECTAL SCH (08:21)
[2016-11-28] MEDS: ALLOPURINOL 100 MG TAB PO SCH (08:21)
[2016-11-28] MEDS: HEPARIN SODIUM,PORCINE 5,000 UNIT/ML 1 ML VIAL SQ SCH ×2 (08:21→21:05)
[2016-11-28] MEDS: FUROSEMIDE 80 MG TAB PO SCH ×2 (08:21→17:02)
[2016-11-28] MEDS: ISOSORBIDE MONONITRATE ER 30 MG TAB.ER.24H PO SCH (08:22)
[2016-11-28] MEDS: SERTRALINE 50 MG TAB PO SCH (08:22)
[2016-11-28] MEDS: MAGNESIUM OXIDE 400 MG TAB PO SCH (08:23)
[2016-11-28] MEDS: MAG HYDROX/AL HYDROX/SIMETH 30 ML, LIDOCAINE VISCOUS 30 ML, diphenhydrAMINE ELIXIR 75 M... PO SCH ×12 (08:24→21:04)
--- NOTE | 2016-11-28 09:13 | P.CRDCN ---
History of Present Illness Consult date: 11/28/16 Requesting physician: Kyle Campos Reason for Consult (text): Hypotension and bradycardia Chief complaint: Hypotension and bradycardia History of present illness: This is a pleasant 61-year-old female who follows regularly with Dr. Rothman in the office. Patient has a known history of coronary artery disease with prior bypass surgery, and occlusion of graft with subsequent PCI. Most recent cardiac catheterization was performed in June by Dr. Rothman which revealed a patent MICHELLE to the LAD, chronically occluded LAD, right coronary artery and left circumflex with patent stent to the ramus intermediate. Maximal medical therapy advised. She also has history of hypertension, diabetes , hyperlipidemia and chronic renal failure on hemodialysis. She has had multiple admissions to the hospital with hypotension and bradycardia during dialysis. Again on this admission patient was admitted from the dialysis center , apparently the blood pressure went down into the 70s and the heart rate was noted to be in the 30s to 40s. Patient felt very weak she states she also had an episode of chest heaviness during this episode and for this reason EMS was called and the patient was brought to the emergency room. EKG on admission here shows a normal sinus rhythm with occasional PVCs, chest x-ray reveals mild cardiomegaly with mild pulmonary vascular congestion. Small left pleural effusion. Hemoglobin 10.7, platelet count 141, white blood cell count 8.4, potassium 3.8, BUN 48, creatinine 7.2. Magnesium level 2.0. troponins 0.04, 0.05,, 0.05. Blood pressure on arrival here 128/60, this morning's blood pressure 114/50 with a heart rate in the 60s. 97% on room air. Examination this morning, patient feels well, denies any chest pain, no shortness of breath , denies any weakness or unsteadiness. Past Medical History Past Medical History: Coronary Artery Disease (CAD), Diabetes Mellitus, Hyperlipidemia, Hypertension, Myocardial Infarction ([place]), Renal Disease, Thyroid Disorder Additional Past Medical History / Comment(s): MIs, IDDM type II, GOUT R foot, diabetic neuropathy bilateral feet and now "all over", chronic ANEMIA, MITRAL and TRICUSID REGURGITATION, esrd gets hemodialysis [id number]., UTIs, bronchitis, hypoparathyroid, wears O2 at 2L/NC during dialysis only, hemorrhoids -have caused anemia in past, hyperkalemia Last Myocardial Infarction Date:: 05/08/16 History of Any Multi-Drug Resistant Organisms: None Reported Past Surgical History: Coronary Bypass/CABG, Heart Catheterization, Heart Catheterization With Stent Additional Past Surgical History / Comment(s): 07/05/16 cardiac cath-tx medially, PREVIOUS STENTS TO CIRC AND LAD-HAD REOCCLUSION THEN HAD 3 VESSEL CABG, PTCAs, AV fistula R arm, colonoscopy-normal, bilateral cataract removal with lens implants, bilateral eye laser sx to remove fluid. Past Anesthesia/Blood Transfusion Reactions: Previous Problems w/ Anesthesia Additional Past Anesthesia/Blood Transfusion Reaction / Comment(s): POST OP DELIRIUM/AGITATION/PSYCHOSIS-RESOLVED. Pt states she had a problem with hypotension last time she received versed. Date of Last Stent Placement:: 05/08/16 Smoking Status: Never smoker - Past Family History Mother Family Medical History: Diabetes Mellitus, Myocardial Infarction ([place]), Thyroid Disorder Additional Family Medical History / Comment(s): CABG, gout, hypothyroid. Mother is 80yrs old. Sister(s) Family Medical History: Diabetes Mellitus, Thyroid Disorder Father Family Medical History: Diabetes Mellitus, Myocardial Infarction ([place]) Additional Family Medical History / Comment(s): Father at the age of 67yrs of a [place] Medications and Allergies Home Medications Medication Instructions Recorded Confirmed Type Allopurinol [Zyloprim] 100 mg PO DAILY@0900 11/15/14 11/27/16 History Gabapentin [Neurontin] 100 mg PO BID@0900,2100 11/15/14 11/27/16 History Omeprazole [PriLOSEC] 20 mg PO BID@0900,209901/31/15 11/27/16 History Insulin Glargine [Lantus] 35 unit SQ HS 03/03/15 11/27/16 History Loperamide [Imodium] 2 mg PO QID PRN 03/03/15 11/27/16 History Mv-Min/Vit C/Glu/Karla HCl/Hc124 1 tab PO QID PRN 03/03/15 11/27/16 History [Airborne Tablet Chewable] Sertraline [Zoloft] 50 mg PO DAILY 03/03/15 11/27/16 History Clopidogrel [Plavix] 75 mg PO DAILY 04/23/15 11/27/16 History Aspirin [Adult Low Dose Aspirin EC] 81 mg PO HS 05/06/16 11/27/16 History Calcium Acetate [PhosLo] 2,001 mg PO AC-TID 05/06/16 11/27/16 History Cinacalcet HCl [Sensipar] 30 mg PO HS 05/06/16 11/27/16 History Furosemide [Lasix] 80 mg PO BID 05/06/16 11/27/16 History Insulin Aspart [NovoLOG] See Protocol SQ AC-TID 05/06/16 11/27/16 History Slow-Mag 71.5mg 143 mg PO BID 05/06/16 11/27/16 History Sodium Bicarbonate Tab 650 mg PO BID 05/06/16 11/27/16 History Isosorbide Mononitrate ER [Imdur] 30 mg PO QAM 06/24/16 11/27/16 History Calcium Acetate [PhosLo] 667 mg PO HS 08/02/16 11/27/16 History Acetaminophen Tab [Tylenol] 650 mg PO Q6HR PRN 10/02/16 11/27/16 History Allergies Allergy/AdvReac Type Severity Reaction Status Date / Time adhesive Allergy Rash/Hives Verified 11/27/16 10:46 cephalexin monohydrate Allergy Rash/Hives Verified 11/27/16 10:46 [From Keflex] hydromorphone HCl Allergy Hallucinati Verified 11/27/16 10:46 [From Dilaudid] ons iodine Allergy Rash/Hives Verified 11/27/16 10:46 Penicillins Allergy Unknown Verified 11/27/16 10:46 Childhood povidone-iodine Allergy Unknown Verified 11/27/16 10:46 [From Betadine] shellfish derived [Shrimp] Allergy Rash/Hives Verified 11/27/16 10:46 soap [From Betadine] Allergy Unknown Verified 11/27/16 10:46 fentanyl AdvReac Unknown Verified 11/27/16 10:46 hydrocodone bitartrate AdvReac Itching Verified 11/27/16 10:46 [From Vicodin] midazolam [From Versed] AdvReac Unknown Verified 11/27/16 10:46 morphine AdvReac Hallucinati Verified 11/27/16 10:46 ons tramadol AdvReac Itching Verified 11/27/16 10:46 artifical sweetener AdvReac Unknown Uncoded 11/27/16 09:38 Physical Exam Vitals: Vital Signs Temp Pulse Pulse Resp BP BP Pulse Ox 11/28/16 04:00 61 16 113/55 97 11/28/16 00:00 97.6 F 95 16 138/53 93 L 11/27/16 20:00 97.7 F 77 18 123/54 94 L 11/27/16 15:35 98.1 F 80 18 133/91 96 11/27/16 15:22 97.4 F L 94 18 119/62 99 11/27/16 13:30 81 18 121/54 98 11/27/16 11:24 91 18 99/54 95 11/27/16 09:36 97.8 F 82 20 128/65 97 Intake and Output 11/27/16 11/28/16 11/28/16 22:59 06:59 14:59 Intake Total 120 10 Balance 120 10 Intake: IV 10 0.9 10 Oral 120 Other: # Voids 2 Weight 90.6 kg PHYSICAL EXAMINATION: HEENT: Head is atraumatic, normocephalic. Pupils equal, round. Neck is supple. There is no elevated jugular venous pressure. HEART EXAMINATION: Heart S1 S2 1 systolic murmur is heard. CHEST EXAMINATION: Lungs are clear to auscultation and precussion. No chest wall tenderness is noted on palpation or with deep breathing. ABDOMEN: Soft, nontender. Bowel sounds are heard. No organomegaly noted. EXTREMITIES: 2+ peripheral pulses with no evidence of peripheral edema and no calf tenderness noted. NEUROLOGIC patient is awake, alert and oriented -3. . Results 11/28/16 05:41 11/28/16 05:41 Cardiac Enzymes 11/27/16 11/27/16 11/27/16 Range/Units 10:00 10:00 15:57 AST 18 (14-36) U/L CK-MB (CK-2) 1.1 1.0 (0.0-2.4) ng/mL Troponin I 0.044 H* 0.053 H* (0.000-0.034) ng/mL 11/27/16 11/28/16 Range/Units 22:34 05:41 AST (14-36) U/L CK-MB (CK-2) 0.9 0.9 (0.0-2.4) ng/mL Troponin I 0.041 H* 0.050 H* (0.000-0.034) ng/mL Coagulation 11/27/16 Range/Units 10:00 PT 10.2 (9.0-12.0) sec APTT 24.1 (22.0-30.0) sec CBC 11/27/16 11/28/16 Range/Units 10:00 05:41 WBC 8.6 8.4 (3.8-10.6) k/uL RBC 3.64 L 3.54 L (3.80-5.40) m/uL Hgb 10.9 L 10.7 L (11.4-16.0) gm/dL Hct 33.3 L 32.6 L (34.0-46.0) % Plt Count 150 141 L (150-450) k/uL Comprehensive Metabolic Panel 11/27/16 11/28/16 Range/Units 10:00 05:41 Sodium 140 140 (137-145) mmol/L Potassium 3.6 3.8 (3.5-5.1) mmol/L Chloride 96 L 100 (98-107) mmol/L Carbon Dioxide 28 22 (22-30) mmol/L BUN 32 H 48 H (7-17) mg/dL Creatinine 5.06 H* 7.20 H* (0.52-1.04) mg/dL Glucose 156 H 114 H (74-99) mg/dL Calcium 9.2 8.8 (8.4-10.2) mg/dL AST 18 (14-36) U/L ALT 21 (9-52) U/L Alkaline Phosphatase 182 H (38-126) U/L Total Protein 6.8 (6.3-8.2) g/dL Albumin 4.1 (3.5-5.0) g/dL Current Medications Generic Name Dose Route Start Last Admin Trade Name Freq PRN Reason Stop Dose Admin Acetaminophen 650 mg 11/27/16 14:18 Tylenol Tab PO Q6HR PRN Mild Pain or Fever > 100.5 Allopurinol 100 mg 11/28/16 09:00 11/28/16 08:21 Zyloprim PO 100 mg DAILY@0900 MUKUND Administration Aspirin 81 mg 11/27/16 21:00 11/27/16 21:40 Aspirin PO 81 mg HS MUKUND Administration Atorvastatin Calcium 80 mg 11/27/16 21:00 11/27/16 21:40 Lipitor PO 80 mg HS MUKUND Administration Calcium Acetate 667 mg 11/27/16 21:00 11/27/16 21:40 Phoslo PO 667 mg HS MUKUND Administration Calcium Acetate 2,001 mg 11/27/16 17:30 11/28/16 06:30 Phoslo PO 2,001 mg AC-TID MUKUND Administration Cinacalcet 30 mg 11/27/16 21:00 11/27/16 21:40 Sensipar PO 30 mg HS MUKUND Administration Clindamycin HCl 600 mg 11/27/16 17:00 11/28/16 08:19 Cleocin PO 600 mg TID MUKUND Administration Clopidogrel Bisulfate 75 mg 11/28/16 09:00 11/28/16 08:20 Plavix PO 75 mg DAILY MUKUND Administration Al Hydroxide/Mg Hydroxide 30 0 ml 11/27/16 16:00 11/28/16 08:24 ml/ Lidocaine HCl 30 ml/ PO Not Given Diphenhydramine HCl 75 mg/ TID [facility] Nystatin 3,000,000 unit Furosemide 80 mg 11/27/16 16:00 11/28/16 08:21 Lasix PO 80 mg BID@0900,1600 MUKUND Administration Gabapentin 100 mg 11/27/16 21:00 11/28/16 08:20 Neurontin PO 100 mg BID@0900,2100 [facility] Administration Heparin Sodium (Porcine) 5,000 unit 11/27/16 21:00 11/28/16 08:21 Heparin SQ 5,000 unit Q12HR MUKUND Administration Hydrocortisone Acetate 25 mg 11/28/16 09:00 11/28/16 08:21 Anusol-Hc RECTAL Not Given DAILY [facility] Insulin Glargine 35 unit 11/27/16 21:00 11/27/16 21:39 Lantus SQ 35 unit HS [facility] Administration Insulin Human Lispro 0 unit 11/27/16 17:30 11/28/16 06:31 [facility] SQ [facility] Protocol Isosorbide Mononitrate 30 mg 11/28/16 09:00 11/28/16 08:22 Imdur PO 30 mg QAM MUKUND Administration Loperamide HCl 2 mg 11/27/16 15:21 Imodium PO QID PRN Diarrhea Magnesium Oxide 400 mg 11/28/16 12:00 11/28/16 08:23 Mag-Ox PO 400 mg 1200 MUKUND Administration Midodrine 10 mg 11/27/16 17:30 11/28/16 06:31 Proamatine PO 10 mg AC-TID MUKUND Administration Montelukast Sodium 10 mg 11/27/16 21:00 11/27/16 21:40 Singulair PO 10 mg HS MUKUND Administration Naloxone HCl 0.2 mg 11/27/16 14:18 Narcan IV Q2M PRN Opioid Reversal Nitroglycerin 0.4 mg 11/27/16 15:21 Nitrostat SUBLINGUAL Q5M PRN Chest Pain Ondansetron HCl 4 mg 11/27/16 14:18 Zofran IVP Q8HR PRN Nausea And Vomiting Pantoprazole Sodium 40 mg 11/27/16 21:00 11/28/16 08:20 Protonix PO 40 mg BID@0900,2100 MUKUND Administration Sertraline HCl 50 mg 11/28/16 09:00 11/28/16 08:22 Zoloft PO 50 mg DAILY MUKUND Administration Sodium Bicarbonate 650 mg 11/27/16 21:00 11/28/16 08:19 Sodium Bicarbonate Tab PO 650 mg BID MUKUND Administration Intake and Output 11/27/16 11/28/16 11/28/16 22:59 06:59 14:59 Intake Total 120 10 Balance 120 10 Intake: IV 10 0.9 10 Oral 120 Other: # Voids 2 Weight 90.6 kg 11/28/16 05:41 11/28/16 05:41 EKG Interpretations (text) EKG shows a normal sinus rhythm with PVCs. No acute changes noted. Assessment and Plan Plan: Assessment and plan #1 hypotension and bradycardia during dialysis with transient chest discomfort. No evidence to suggest acute coronary syndrome. Troponins 0.04, 0.05, 0.04. On review of her admissions, patient consistently has abnormal troponins. #2 known history of coronary artery disease with prior bypass surgery and PCI. Most recent cath performed in June of this year medical therapy advised #3 history of hypertension #4 hyperlipidemia # 5 diabetes #6 end-stage renal disease on hemodialysis Plan Patient had a recent echocardiogram with Doppler study performed in July of this year which revealed an ejection fraction of 40-45% with mid basal inferior lateral hypokinesia. Severe mitral regurgitation. TSH one month ago was normal. We will repeat an echocardiogram with Doppler study this admission. Monitor blood pressure and heart rate closely.consult Dr Engle regarding pacemaker. DNP note has been reviewed, I agree with a documented findings and plan of care. Patient was seen and examined.
[2016-11-28] MEDS ORDERED: ceFAZolin 1,000 MG in SODIUM CHLORIDE 0.9% IRRIGATIO 250 ML IRRIGATION ONE (09:42)
[2016-11-28] MEDS ORDERED: ceFAZolin 2 GM in SODIUM CHLORIDE 0.9% 100 ML IVPB ONE (09:42)
--- NOTE | 2016-11-28 11:26 | ECHOF ---
Referral Reason: MEASUREMENTS -------- HEIGHT: 165.1 cm WEIGHT: 90.3 kg BP: 113/55 RVIDd: 2.9 cm (< 3.3) IVSd: 1.1 cm (0.6 - 1.1) LVIDd: 6.1 cm (3.9 - 5.3) LVPWd: 1.2 cm (0.6 - 1.1) IVSs: 1.3 cm LVIDs: 5.3 cm LVPWs: 1.3 cm LAESV Index (A-L): 30.65 ml/m Ao Diam: 2.4 cm (2.0 - 3.7) AV Cusp: 1.5 cm (1.5 - 2.6) LA Diam: 5.0 cm (2.7 - 3.8) MV EXCURSION: 15.119 mm (> 18.000) MV EF SLOPE: 102 mm/s (70 - 150) EPSS: 1.3 cm MV E Jass: 1.32 m/s MV DecT: 322 ms MV A Jass: 0.95 m/s MV E/A Ratio: 1.40 RAP: 15.00 mmHg RVSP: 71.32 mmHg FINDINGS -------- Sinus rhythm with extra systolic beats. This was a technically adequate study. The left ventricle is moderately dilated. There is borderline concentric left ventricular hypertrophy. Overall left ventricular systolic function is mild-moderately impaired with, an EF between 40 - 45 %. Basal inferior LV wall motion is akinetic. Basal inferoseptal LV wall motion is akinetic. Mid inferior LV wall motion is akinetic. Mid inferoseptal LV wall motion is akinetic. The right ventricle is normal in size and function. LA is midly dilated 29-33ml/m2. RA appears enlarged. There is mild aortic valve sclerosis. There is no evidence of aortic regurgitation. Mild mitral annular calcification present. [id number] mitral regurgitation is present. Moderate tricuspid regurgitation present. There is severe pulmonary hypertension. The right ventricular systolic pressure, as measured by Doppler, is 71.32mmHg. The pulmonic valve was not well visualized. There is no pulmonic regurgitation present. The aortic root size is normal. The inferior vena cava is dilated with poor inspiratory collapse which is consistent with estimated right atrial pressure of 20 mmHg. The pericardium is normal. There is no pericardial effusion. CONCLUSIONS -------- 1. Sinus rhythm with extra systolic beats. 2. LA is midly dilated 29-33ml/m2. 3. RA appears enlarged. 4. There is mild aortic valve sclerosis. 5. Mild mitral annular calcification present. 6. Wjesukuq-ym-sijgie mitral regurgitation is present. 7. There is severe pulmonary hypertension. 8. The right ventricular systolic pressure, as measured by Doppler, is 71.32mmHg. 9. The pulmonic valve was not well visualized. 10. There is no pulmonic regurgitation present. 11. The aortic root size is normal. 12. This was a technically adequate study. 13. The inferior vena cava is dilated with poor inspiratory collapse which is consistent with estimated right atrial pressure of 20 mmHg. 14. There is no pericardial effusion. 15. The left ventricle is moderately dilated. 16. There is borderline concentric left ventricular hypertrophy. 17. Overall left ventricular systolic function is mild-moderately impaired with, an EF between 40 - 45 %. 18. Basal inferior LV wall motion is akinetic. 19. Basal inferoseptal LV wall motion is akinetic. 20. Mid inferior LV wall motion is akinetic. 21. Mid inferoseptal LV wall motion is akinetic. HAZARDOUS MATERIALS HANDLER: Bart Rodriguez RDCS
[2016-11-28 11:46] LABS: Glucose,Whole Blood 272 mg/dL (75-99)
[2016-11-28] MEDS ORDERED: methylPREDNISolone SOD SUCCI 125 MG in SODIUM CHLORIDE 0.9% 100 ML IVPB STA (11:56)
[2016-11-28] MEDS ORDERED: methylPREDNISolone SOD SUCCI 125 MG/2 ML VIAL IVP STA (11:59)
[2016-11-28] MEDS: SODIUM CHLORIDE 0.9% 1,000 ML IV SCH (12:16)
--- NOTE | 2016-11-28 14:15 | P.CRDCN ---
History of Present Illness Consult reason: hypotension History of present illness: Patient was admitted with hypotension and bradycardia during dialysis. According to her this is the third time she is experienced hypotension and bradycardia along with chest discomfort to follow She was in dialysis yesterday when she heard the alarm bells ringing. She asked the nurse what is going on and was told that her blood pressure was dropping. Subsequently she heard more alarm bells and was told that her blood pressure was lower and then subsequently was told that her heart rate was quite slow. At that point the patient started experiencing chest discomfort and got scared because she has known coronary artery disease. She was promptly transferred to the hospital. Within 15 minutes of this episode she felt better. Her episodes usually start with hypertension him a always during dialysis followed by bradycardia and sweatiness and feeling crummy. They last for 15-20 minutes ALLERGY list has been reviewed it's quite extensive. Medication list was reviewed and includes aspirin and atorvastatin. She also takes Lasix 80 mg twice daily and isosorbide and Midrin Review of systems: No fever chills or rigors, no cough, phlegm or expectoration , no nausea, vomiting or diarrhea, no hematuria, dysuria, no musculoskeletal complaints, no strokes or seizures, no skin lesions. On examination heart rates are normal in the 80s and 90s, no bradycardia here in the hospital. ECG also does not show any bradycardia. Her pressures have been normal. This is consistent with the patient's history Heart sounds are normal. Breath sounds are normal No rhonchi no crackles no murmurs or gallops Abdomen soft nontender Extremities warm no edema Impression Known coronary artery disease Has post coronary artery bypass grafting Occasional PVCs Stage V chronic kidney disease status post dialysis Vagal spells with hypotension followed by bradycardia and sweatiness during dialysis, at least 3 such episodes Twelve-lead ECG shows sinus rhythm with normal cardiac intervals normal heart rates Telemetry does not show any bradycardia Suggest Reduce the daily and rate of dialysis. Hold Lasix that morning hold Imdur that morning May take midodrine just prior to dialysis Pacemaker is not indicated Discussed with the patient in detail and she is very agreeable to the plan Follow-up of Dr. Rothman and a follow-up Holter monitor in between her dialysis not during dialysis Past Medical History Past Medical History: Coronary Artery Disease (CAD), Diabetes Mellitus, Hyperlipidemia, Hypertension, Myocardial Infarction (NC), Renal Disease, Thyroid Disorder Additional Past Medical History / Comment(s): MIs, IDDM type II, GOUT R foot, diabetic neuropathy bilateral feet and now "all over", chronic ANEMIA, MITRAL and TRICUSID REGURGITATION, esrd gets hemodialysis [id number]., UTIs, bronchitis, hypoparathyroid, wears O2 at 2L/NC during dialysis only, hemorrhoids -have caused anemia in past, hyperkalemia Last Myocardial Infarction Date:: 05/08/16 History of Any Multi-Drug Resistant Organisms: None Reported Past Surgical History: Coronary Bypass/CABG, Heart Catheterization, Heart Catheterization With Stent Additional Past Surgical History / Comment(s): 07/05/16 cardiac cath-tx medially, PREVIOUS STENTS TO CIRC AND LAD-HAD REOCCLUSION THEN HAD 3 VESSEL CABG, PTCAs, AV fistula R arm, colonoscopy-normal, bilateral cataract removal with lens implants, bilateral eye laser sx to remove fluid. Past Anesthesia/Blood Transfusion Reactions: Previous Problems w/ Anesthesia Additional Past Anesthesia/Blood Transfusion Reaction / Comment(s): POST OP DELIRIUM/AGITATION/PSYCHOSIS-RESOLVED. Pt states she had a problem with hypotension last time she received versed. Date of Last Stent Placement:: 05/08/16 Smoking Status: Never smoker - Past Family History Mother Family Medical History: Diabetes Mellitus, Myocardial Infarction (NC), Thyroid Disorder Additional Family Medical History / Comment(s): CABG, gout, hypothyroid. Mother is 80yrs old. Sister(s) Family Medical History: Diabetes Mellitus, Thyroid Disorder Father Family Medical History: Diabetes Mellitus, Myocardial Infarction (NC) Additional Family Medical History / Comment(s): Father at the age of 67yrs of a NC Medications and Allergies Home Medications Medication Instructions Recorded Confirmed Type Allopurinol [Zyloprim] 100 mg PO DAILY@0900 11/15/14 11/27/16 History Gabapentin [Neurontin] 100 mg PO BID@00,209911/15/14 11/27/16 History Omeprazole [PriLOSEC] 20 mg PO BID@0900,209901/31/15 11/27/16 History Insulin Glargine [Lantus] 35 unit SQ HS 03/03/15 11/27/16 History Loperamide [Imodium] 2 mg PO QID PRN 03/03/15 11/27/16 History Mv-Min/Vit C/Glu/Karla HCl/Hc124 1 tab PO QID PRN 03/03/15 11/27/16 History [Airborne Tablet Chewable] Sertraline [Zoloft] 50 mg PO DAILY 03/03/15 11/27/16 History Clopidogrel [Plavix] 75 mg PO DAILY 04/23/15 11/27/16 History Aspirin [Adult Low Dose Aspirin EC] 81 mg PO HS 05/06/16 11/27/16 History Calcium Acetate [PhosLo] 2,001 mg PO AC-TID 05/06/16 11/27/16 History Cinacalcet HCl [Sensipar] 30 mg PO HS 05/06/16 11/27/16 History Furosemide [Lasix] 80 mg PO BID 05/06/16 11/27/16 History Insulin Aspart [NovoLOG] See Protocol SQ AC-TID 05/06/16 11/27/16 History Slow-Mag 71.5mg 143 mg PO BID 05/06/16 11/27/16 History Sodium Bicarbonate Tab 650 mg PO BID 05/06/16 11/27/16 History Isosorbide Mononitrate ER [Imdur] 30 mg PO QAM 06/24/16 11/27/16 History Calcium Acetate [PhosLo] 667 mg PO HS 08/02/16 11/27/16 History Acetaminophen Tab [Tylenol] 650 mg PO Q6HR PRN 10/02/16 11/27/16 History Allergies Allergy/AdvReac Type Severity Reaction Status Date / Time adhesive Allergy Rash/Hives Verified 11/27/16 10:46 cephalexin monohydrate Allergy Rash/Hives Verified 11/27/16 10:46 [From Keflex] hydromorphone HCl Allergy Hallucinati Verified 11/27/16 10:46 [From Dilaudid] ons iodine Allergy Rash/Hives Verified 11/27/16 10:46 Penicillins Allergy Unknown Verified 11/27/16 10:46 Childhood povidone-iodine Allergy Unknown Verified 11/27/16 10:46 [From Betadine] shellfish derived [Shrimp] Allergy Rash/Hives Verified 11/27/16 10:46 soap [From Betadine] Allergy Unknown Verified 11/27/16 10:46 fentanyl AdvReac Unknown Verified 11/27/16 10:46 hydrocodone bitartrate AdvReac Itching Verified 11/27/16 10:46 [From Vicodin] midazolam [From Versed] AdvReac Unknown Verified 11/27/16 10:46 morphine AdvReac Hallucinati Verified 11/27/16 10:46 ons tramadol AdvReac Itching Verified 11/27/16 10:46 artifical sweetener AdvReac Unknown Uncoded 11/27/16 09:38 Physical Exam Vitals: Vital Signs Temp Pulse Pulse Resp BP BP Pulse Ox 11/28/16 13:05 98.9 F 90 16 123/70 96 11/28/16 10:00 97.2 F L 82 18 128/65 96 11/28/16 04:00 61 16 113/55 97 11/28/16 00:00 97.6 F 95 16 138/53 93 L 11/27/16 20:00 97.7 F 77 18 123/54 94 L 11/27/16 15:35 98.1 F 80 18 133/91 96 11/27/16 15:22 97.4 F L 94 18 119/62 99 Intake and Output 11/27/16 11/28/16 11/28/16 22:59 06:59 14:59 Intake Total 120 10 120 Balance 120 10 120 Intake: IV 10 0.9 10 Oral 120 120 Other: # Voids 2 0 Weight 90.6 kg 90.6 kg Patient Weight 11/29/16 06:59 Weight 90.6 kg Results 11/28/16 05:41 11/28/16 05:41 Cardiac Enzymes 11/27/16 11/27/16 11/28/16 Range/Units 15:57 22:34 05:41 CK-MB (CK-2) 1.0 0.9 0.9 (0.0-2.4) ng/mL Troponin I 0.053 H* 0.041 H* 0.050 H* (0.000-0.034) ng/mL CBC 11/28/16 Range/Units 05:41 WBC 8.4 (3.8-10.6) k/uL RBC 3.54 L (3.80-5.40) m/uL Hgb 10.7 L (11.4-16.0) gm/dL Hct 32.6 L (34.0-46.0) % Plt Count 141 L (150-450) k/uL Comprehensive Metabolic Panel 11/28/16 Range/Units 05:41 Sodium 140 (137-145) mmol/L Potassium 3.8 (3.5-5.1) mmol/L Chloride 100 (98-107) mmol/L Carbon Dioxide 22 (22-30) mmol/L BUN 48 H (7-17) mg/dL Creatinine 7.20 H* (0.52-1.04) mg/dL Glucose 114 H (74-99) mg/dL Calcium 8.8 (8.4-10.2) mg/dL Current Medications Generic Name Dose Route Start Last Admin Trade Name Freq PRN Reason Stop Dose Admin Acetaminophen 650 mg 11/27/16 14:18 Tylenol Tab PO Q6HR PRN Mild Pain or Fever > 100.5 Allopurinol 100 mg 11/28/16 09:00 11/28/16 08:21 Zyloprim PO 100 mg DAILY@0900 MUKUND Administration Aspirin 81 mg 11/27/16 21:00 11/27/16 21:40 Aspirin PO 81 mg HS MUKUND Administration Atorvastatin Calcium 80 mg 11/27/16 21:00 11/27/16 21:40 Lipitor PO 80 mg HS MUKUND Administration Calcium Acetate 667 mg 11/27/16 21:00 11/27/16 21:40 Phoslo PO 667 mg HS MUKUND Administration Calcium Acetate 2,001 mg 11/27/16 17:30 11/28/16 11:15 Phoslo PO Not Given AC-TID MUKUND Cinacalcet 30 mg 11/27/16 21:00 11/27/16 21:40 Sensipar PO 30 mg HS MUKUND Administration Clindamycin HCl 600 mg 11/27/16 17:00 11/28/16 08:19 Cleocin PO 600 mg TID MUKUND Administration Clopidogrel Bisulfate 75 mg 11/28/16 09:00 11/28/16 08:20 Plavix PO 75 mg DAILY MUKUND Administration Al Hydroxide/Mg Hydroxide 30 0 ml 11/27/16 16:00 11/28/16 08:24 ml/ Lidocaine HCl 30 ml/ PO Not Given Diphenhydramine HCl 75 mg/ TID MUKUND Nystatin 3,000,000 unit Furosemide 80 mg 11/27/16 16:00 11/28/16 08:21 Lasix PO 80 mg BID@0900,1600 MUKUND Administration Gabapentin 100 mg 11/27/16 21:00 11/28/16 08:20 Neurontin PO 100 mg BID@0900,2100 MUKUND Administration Heparin Sodium (Porcine) 5,000 unit 11/27/16 21:00 11/28/16 08:21 Heparin SQ 5,000 unit Q12HR MUKUND Administration Hydrocortisone Acetate 25 mg 11/28/16 09:00 11/28/16 08:21 Anusol-Hc RECTAL Not Given DAILY [facility] Sodium Chloride 1,000 mls @ 20 mls/hr 11/28/16 09:45 11/28/16 12:16 Saline 0.9% IV 20 mls/hr .Q24H MUKUND Administration Insulin Glargine 35 unit 11/27/16 21:00 11/27/16 21:39 Lantus SQ 35 unit HS MUKUND Administration Insulin Human Lispro 0 unit 11/27/16 17:30 11/28/16 11:57 Humalog SQ 4 unit ACHS MUKUND Administration Protocol Isosorbide Mononitrate 30 mg 11/28/16 09:00 11/28/16 08:22 Imdur PO 30 mg QAM [facility] Administration Loperamide HCl 2 mg 11/27/16 15:21 Imodium PO QID PRN Diarrhea Magnesium Oxide 400 mg 11/28/16 12:00 11/28/16 08:23 Mag-Ox PO 400 mg 1200 MUKUND Administration Midodrine 10 mg 11/27/16 17:30 11/28/16 11:57 Proamatine PO 10 mg AC-TID MUKUND Administration Montelukast Sodium 10 mg 11/27/16 21:00 11/27/16 21:40 Singulair PO 10 mg HS [facility] Administration Naloxone HCl 0.2 mg 11/27/16 14:18 Narcan IV Q2M PRN Opioid Reversal Nitroglycerin 0.4 mg 11/27/16 15:21 Nitrostat SUBLINGUAL Q5M PRN Chest Pain Ondansetron HCl 4 mg 11/27/16 14:18 Zofran IVP Q8HR PRN Nausea And Vomiting Pantoprazole Sodium 40 mg 11/27/16 21:00 11/28/16 08:20 Protonix PO 40 mg BID@0900,2100 MUKUND Administration Sertraline HCl 50 mg 11/28/16 09:00 11/28/16 08:22 Zoloft PO 50 mg DAILY MUKUND Administration Sodium Bicarbonate 650 mg 11/27/16 21:00 11/28/16 08:19 Sodium Bicarbonate Tab PO 650 mg BID MUKUND Administration Intake and Output 11/27/16 11/28/16 11/28/16 22:59 06:59 14:59 Intake Total 120 10 120 Balance 120 10 120 Intake: IV 10 0.9 10 Oral 120 120 Other: # Voids 2 0 Weight 90.6 kg 90.6 kg Patient Weight 11/29/16 06:59 Weight 90.6 kg 11/28/16 05:41 11/28/16 05:41
[2016-11-28 16:39] LABS: Glucose,Whole Blood 330 mg/dL (75-99)
--- NOTE | 2016-11-28 17:11 | P.PN ---
Subjective This is a 61-year-old female with a known past medical history of coronary artery disease with previous myocardial infarction and coronary artery bypass grafting, diabetes mellitus, hyperlipidemia, chronic kidney disease requires hemodialysis Sunday, and hypothyroidism. Patient has had multiple hospitalizations due to bradycardia and hypotension during dialysis. She is on Midrin. Patient reports she was receiving dialysis today and just was not feeling well. She was lightheaded and dizzy also having chest pains. Patient felt that she was near passing out. Ambulance was called and she was brought into the emergency room. Patient completed 3 out of 4 hours of the hemodialysis. She had become lightheaded and diaphoretic. Heart rate had been down to the 37 and patient reports blood pressures to be as low as 70/30. She received IV fluids in the dialysis center as well as an extra dose of Midrin. On admission patient had a blood pressure 128/65 and heart rate around 82. EKG had shown sinus rhythm with PVCs and prolonged QT interval. Objective - Vital Signs Vital signs: Vital Signs Temp 98.2 F 11/28/16 16:00 Pulse 83 11/28/16 16:00 Resp 16 11/28/16 16:00 BP 118/55 11/28/16 16:00 Pulse Ox 93 L 11/28/16 16:00 Intake & Output 11/27/16 11/28/16 11/28/16 18:59 06:59 18:59 Intake Total 130 120 Balance 130 120 Weight 93 kg 90.6 kg 90.6 kg Intake: IV 10 0.9 10 Oral 120 120 Other: # Voids 2 0 - Exam HEENT head normocephalic and atraumatic Neck is supple no JVD no goiter no lymphadenopathy Chest is clear to auscultation no crackles no wheezing Cardiac exam reveals regular heart sounds S1 and S2 no gallops no murmurs Abdomen is soft nontender no organomegaly with normal bowel sounds Extremity exam reveals no edema no cyanosis or clubbing - Labs CBC & Chem 7: 11/28/16 05:41 11/28/16 05:41 Labs: Abnormal Lab Results - Last 24 Hours (Table) 11/27/16 11/27/16 11/27/16 Range/Units 10:00 21:03 22:34 RBC (3.80-5.40) m/uL Hgb (11.4-16.0) gm/dL Hct (34.0-46.0) % RDW (11.5-15.5) % Plt Count (150-450) k/uL BUN (7-17) mg/dL Creatinine (0.52-1.04) mg/dL Glucose (74-99) mg/dL POC Glucose (mg/dL) 221 H (75-99) mg/dL Hemoglobin A1c 7.2 H (4.2-6.1) % Phosphorus (2.5-4.5) mg/dL Troponin I 0.041 H* (0.000-0.034) ng/mL 11/28/16 11/28/16 11/28/16 Range/Units 05:41 05:41 05:41 RBC 3.54 L (3.80-5.40) m/uL Hgb 10.7 L (11.4-16.0) gm/dL Hct 32.6 L (34.0-46.0) % RDW 17.8 H (11.5-15.5) % Plt Count 141 L (150-450) k/uL BUN 48 H (7-17) mg/dL Creatinine 7.20 H* (0.52-1.04) mg/dL Glucose 114 H (74-99) mg/dL POC Glucose (mg/dL) (75-99) mg/dL Hemoglobin A1c (4.2-6.1) % Phosphorus 5.6 H (2.5-4.5) mg/dL Troponin I 0.050 H* (0.000-0.034) ng/mL 11/28/16 11/28/16 11/28/16 Range/Units 05:56 11:44 16:26 RBC (3.80-5.40) m/uL Hgb (11.4-16.0) gm/dL Hct (34.0-46.0) % RDW (11.5-15.5) % Plt Count (150-450) k/uL BUN (7-17) mg/dL Creatinine (0.52-1.04) mg/dL Glucose (74-99) mg/dL POC Glucose (mg/dL) 119 H 272 H 330 H (75-99) mg/dL Hemoglobin A1c (4.2-6.1) % Phosphorus (2.5-4.5) mg/dL Troponin I (0.000-0.034) ng/mL Assessment and Plan Plan: 1. Bradycardia and hypotension during dialysis. Patient reports receiving IV fluids at dialysis center and an extra dose of Midrin. Blood pressure and heart rate are currently stable. Consult cardiology and nephrology 2. Episode of chest pain during dialysis. Monitor cardiac enzymes. First troponin mildly elevated at 0.044. EKG showing sinus rhythm with PVCs and prolonged QT interval. Last heart catheterization was June 2016 showing triple-vessel coronary artery disease patent stent to the ramus intermedius, patent MICHELLE to LAD and chronic occluded LAD, right coronary artery and left circumflex. Cardiology had recommended medical management at that time. Will await further cardiology recommendations 3. Near syncopal episode possibly related to the bradycardia and hypotension. Last echo in July 2016 shows an EF of 40-45% with severe mitral regurgitation. Continue telemetry monitoring 4. End-stage renal disease hemodialysis on Sunday. Consult nephrology 5. Atelectasis on chest x-ray without pneumonia. White count within normal range patient afebrile and no cough. Start incentive spirometer 6. Diabetes mellitus type 2: Continue her Lantus. Add sliding scale coverage 7. History of coronary artery disease and previous coronary artery bypass grafting and cardiac stents 8. Oral ulcer left upper gum of the mouth. Remove dentures. Add cool solution , patient was seen by Dr Hussein infectious disease, he ordered a CT scan to rule out abcess formation. Continue IV Clindamycin at this time. 9. GI prophylaxis Protonix and DVT prophylaxis subcu heparin
--- NOTE | 2016-11-28 17:51 | CONS ---
REASON FOR CONSULTATION: End stage renal disease. HISTORY OF PRESENT ILLNESS: The patient is a 61 year old female on hemodialysis on a Sunday, Sunday, Sunday schedule for end stage renal disease. She was admitted to the hospital with complaints of chest discomfort about 2 and one half hours into dialysis. The patient was also bradycardic. Heart rate noted in the ER records was at 82. It appears that it did go down in the 30s as outpatient. The patient has had two other similar episodes. The patient states normally she does not put out a lot of fluid except on the weekends and she usually has trouble with ultrafiltration with episodes of hypotension. No fever, chills. No abdominal pain. Past medical history: Coronary artery disease, Type 2 diabetes, hyperlipidemia , hypertension, coronary artery disease, history of NE, hypothyroidism, gout, CKD, bone mineral disorder, anemia of chronic disease, mitral regurgitation, tricuspid regurgitation, neuropathy. PAST SURGICAL HISTORY: Coronary artery bypass surgery, cardiac catheterization, AV fistula, cataract surgery, Laser eye surgery. Social history is negative for smoking, drug abuse or alcohol abuse. Medications at home prior to admission included: 1. Imodium. 2. Insulin. 3. Prilosec. 4. Neurontin. 5. Zyloprim. 6. PhosLo. 7. Plavix. 8. Zoloft. 9. Sensipar. 10. Lasix. 11. Slow An. 12. Imdur. 13. PhosLo. 14. Tylenol. 15. Sodium bicarb. Allergies are MULTIPLE, PLEASE SEE CHART. Review of systems as per HPI. Other systems negative. On examination, the patient is currently comfortable. Awake, alert and oriented times three. Not in any acute distress. Blood pressure is 118/55. Heart rate is 83 per minute. She is afebrile. Examination of the heart S1, S2. Examination of the lungs revealed bilateral breath sounds are heard. Abdomen is soft, nontender. Extremities of lower extremities shows no significant edema. ACCOUNT MANAGER examination is grossly intact. The patient is moving all four extremities. Labs shows sodium 140, potassium 3.8, hemoglobin 10.7. ASSESSMENT: 1. End stage renal disease on hemodialysis on a Sunday, Sunday, Sunday schedule. We will arrange for hemodialysis in the a.m. 2. Episode of bradycardia, hypotension about 2 and one half hours into treatment. I do see Midodrine maintained on her home med list. The patient does follow with cardiology. I will check a random cortisol level to rule out underlying adrenal insufficiency. I do not believe her pressure has been on the high side recently. 3. Dyslipidemia. 4. Chronic kidney disease, bone mineral disorder, maintained on Sensipar and PhosLo. PLAN: Hemodialysis in the a.m. Check random cortisol level. We will check with the outpatient unit regarding her goal UF and her estimated dry weight. Thank you for this consultation, we will continue to follow the patient with you during her hospitalization. DANG
--- NOTE | 2016-11-28 20:22 | CT ---
EXAMINATION TYPE: CT facial bones wo con DATE OF EXAM: 11/28/2016 COMPARISON: NONE HISTORY: Facial pain and pressure CT DLP: 509 mGycm Automated exposure control for dose reduction was used. TECHNIQUE: CT scan of the sinuses is performed without contrast, axial images are obtained, coronal r eformatted images are also reviewed. FINDINGS: The paranasal sinuses including the frontal, ethmoid, sphenoid, and maxillary sinuses bila terally are well-aerated without abnormal opacification. The ostiomeatal complex is patent bilateral ly on the coronal images. Visualized portion of mastoid air cells show no abnormal opacification. Cerebral vascular calcificati ons are present. Cortical atrophy is likely age-related. The globes are intact bilaterally. IMPRESSION: The sinuses are clear and the ostiomeatal complex is patent bilaterally. No infection laura dent.
[2016-11-28 21:02] LABS: Glucose,Whole Blood 355 mg/dL (75-99)
[2016-11-28] MEDS: ATORVASTATIN 80 MG TAB PO SCH (21:04)
[2016-11-28] MEDS: MONTELUKAST 10 MG TAB PO SCH (21:05)
[2016-11-28] MEDS: CINACALCET 30 MG TAB PO SCH (21:05)
[2016-11-28] MEDS: ASPIRIN 81 MG CHEW PO SCH (21:05)
[2016-11-28] MEDS: INSULIN GLARGINE 100 UNIT/ML 10 ML VIAL SQ SCH (21:06)
[2016-11-28] MEDS: ACETAMINOPHEN TAB 325 MG TAB PO PRN (23:31)
[2016-11-29 05:37] VITALS: RESP 18
[2016-11-29 06:25] LABS: Glucose,Whole Blood 316 mg/dL (75-99)
[2016-11-29] MEDS: MIDODRINE 5 MG TAB PO SCH ×3 (06:42→16:42)
[2016-11-29] MEDS: CALCIUM ACETATE 667 MG CAP PO SCH ×4 (06:42→16:42)
[2016-11-29] MEDS: INSULIN LISPRO (humaLOG) 300 UNIT/3 ML VIAL SQ SCH ×4 (06:42→20:36)
[2016-11-29] MEDS: HYDROCORTISONE SUPPOSITORY 25 MG SUPP RECTAL SCH (08:13)
[2016-11-29] MEDS: CLINDAMYCIN 150 MG CAP PO SCH ×3 (08:14→20:34)
[2016-11-29] MEDS: FUROSEMIDE 80 MG TAB PO SCH ×2 (08:15→16:39)
[2016-11-29] MEDS: ALLOPURINOL 100 MG TAB PO SCH (08:15)
[2016-11-29] MEDS: CLOPIDOGREL 75 MG TAB PO SCH (08:15)
[2016-11-29] MEDS: GABAPENTIN 100 MG CAP PO SCH ×2 (08:16→20:35)
[2016-11-29] MEDS: HEPARIN SODIUM,PORCINE 5,000 UNIT/ML 1 ML VIAL SQ SCH ×2 (08:16→20:36)
[2016-11-29] MEDS: ISOSORBIDE MONONITRATE ER 30 MG TAB.ER.24H PO SCH (08:17)
[2016-11-29] MEDS: PANTOPRAZOLE 40 MG TABLET PO SCH ×2 (08:17→20:35)
[2016-11-29] MEDS: SODIUM BICARBONATE TAB 650 MG TAB PO SCH ×2 (08:18→20:36)
[2016-11-29] MEDS: SERTRALINE 50 MG TAB PO SCH (08:18)
[2016-11-29] MEDS: MAG HYDROX/AL HYDROX/SIMETH 30 ML, LIDOCAINE VISCOUS 30 ML, diphenhydrAMINE ELIXIR 75 M... PO SCH ×12 (10:11→22:48)
--- NOTE | 2016-11-29 10:45 | P.CONS ---
History of Present Illness - Reason for Consult Consult date: 11/28/16 Question of left cheek abscess Requesting physician: Kyle Campos - Chief Complaint Pain left cheek 3 days - History of Present Illness Patient is a 61 -year-old female past medical history significant for end-stage renal disease on hemodialysis Sunday patient was sent to the ER for evaluation of the chest pain that happened as the patient was getting dialysis and patient also noticed to be bradycardic with a heart rate is in 30s for which the patient currently being evaluated by cardiology services. Patient did complain to the admitting services of a pain in her left cheek area inside the Mouth that she has for about 3 days the patient did not recall any history of trauma or biting on the cheek area pain described to be throbbing 4- 5 out of 10 and no duration , there is no significant drainage from it the patient denies high-grade fever rigors and chills she was started on clindamycin because of her penicillin ALLERGY I was asked to see the patient for further recommendation regarding antibiotic therapy Review of Systems Review of system Constitutional: The patient denies any fever or rigors or chills, the patient does complain of weakness. Eyes: No complaint ENT: As per history of present illness Respiratory: No complaint Cardiovascular: As per history of present illness Gastrointestinal: No complaint Genitourinary: No complaint Musculoskeletal: No complaint Integumentary: No complaint Endocrine : No complaint Psycologial : No complaint Neurological: No complaint. Past Medical History Past Medical History: Coronary Artery Disease (CAD), Diabetes Mellitus, Hyperlipidemia, Hypertension, Myocardial Infarction (MA), Renal Disease, Thyroid Disorder Additional Past Medical History / Comment(s): MIs, IDDM type II, GOUT R foot, diabetic neuropathy bilateral feet and now "all over", chronic ANEMIA, MITRAL and TRICUSID REGURGITATION, esrd gets hemodialysis [id number]., UTIs, bronchitis, hypoparathyroid, wears O2 at 2L/NC during dialysis only, hemorrhoids -have caused anemia in past, hyperkalemia Last Myocardial Infarction Date:: 05/08/16 History of Any Multi-Drug Resistant Organisms: None Reported Past Surgical History: Coronary Bypass/CABG, Heart Catheterization, Heart Catheterization With Stent Additional Past Surgical History / Comment(s): 07/05/16 cardiac cath-tx medially, PREVIOUS STENTS TO CIRC AND LAD-HAD REOCCLUSION THEN HAD 3 VESSEL CABG, PTCAs, AV fistula R arm, colonoscopy-normal, bilateral cataract removal with lens implants, bilateral eye laser sx to remove fluid. Past Anesthesia/Blood Transfusion Reactions: Previous Problems w/ Anesthesia Additional Past Anesthesia/Blood Transfusion Reaction / Comm: POST OP DELIRIUM/ AGITATION/PSYCHOSIS-RESOLVED. Pt states she had a problem with hypotension last time she received versed. Date of Last Stent Placement:: 05/08/16 Smoking Status: Never smoker - Past Family History Mother Family Medical History: Diabetes Mellitus, Myocardial Infarction (MA), Thyroid Disorder Additional Family Medical History / Comment(s): CABG, gout, hypothyroid. Mother is 80yrs old. Sister(s) Family Medical History: Diabetes Mellitus, Thyroid Disorder Father Family Medical History: Diabetes Mellitus, Myocardial Infarction (MA) Additional Family Medical History / Comment(s): Father at the age of 67yrs of a MA Medications and Allergies Home Medications Medication Instructions Recorded Confirmed Type Allopurinol [Zyloprim] 100 mg PO DAILY@0900 11/15/14 11/27/16 History Gabapentin [Neurontin] 100 mg PO BID@0900,2100 11/15/14 11/27/16 History Omeprazole [PriLOSEC] 20 mg PO BID@0900,2100 01/31/15 11/27/16 History Insulin Glargine [Lantus] 35 unit SQ HS 03/03/15 11/27/16 History Loperamide [Imodium] 2 mg PO QID PRN 03/03/15 11/27/16 History Mv-Min/Vit C/Glu/Karla HCl/Hc124 1 tab PO QID PRN 03/03/15 11/27/16 History [Airborne Tablet Chewable] Sertraline [Zoloft] 50 mg PO DAILY 03/03/15 11/27/16 History Clopidogrel [Plavix] 75 mg PO DAILY 04/23/15 11/27/16 History Aspirin [Adult Low Dose Aspirin EC] 81 mg PO HS 05/06/16 11/27/16 History Calcium Acetate [PhosLo] 2,001 mg PO AC-TID 05/06/16 11/27/16 History Cinacalcet HCl [Sensipar] 30 mg PO HS 05/06/16 11/27/16 History Furosemide [Lasix] 80 mg PO BID 05/06/16 11/27/16 History Insulin Aspart [NovoLOG] See Protocol SQ AC-TID 05/06/16 11/27/16 History Slow-Mag 71.5mg 143 mg PO BID 05/06/16 11/27/16 History Sodium Bicarbonate Tab 650 mg PO BID 05/06/16 11/27/16 History Isosorbide Mononitrate ER [Imdur] 30 mg PO QAM 06/24/16 11/27/16 History Calcium Acetate [PhosLo] 667 mg PO HS 08/02/16 11/27/16 History Acetaminophen Tab [Tylenol] 650 mg PO Q6HR PRN 10/02/16 11/27/16 History Allergies Allergy/AdvReac Type Severity Reaction Status Date / Time adhesive Allergy Rash/Hives Verified 11/27/16 10:46 cephalexin monohydrate Allergy Rash/Hives Verified 11/27/16 10:46 [From Keflex] hydromorphone HCl Allergy Hallucinati Verified 11/27/16 10:46 [From Dilaudid] ons iodine Allergy Rash/Hives Verified 11/27/16 10:46 Penicillins Allergy Unknown Verified 11/27/16 10:46 Childhood povidone-iodine Allergy Unknown Verified 11/27/16 10:46 [From Betadine] shellfish derived [Shrimp] Allergy Rash/Hives Verified 11/27/16 10:46 soap [From Betadine] Allergy Unknown Verified 11/27/16 10:46 fentanyl AdvReac Unknown Verified 11/27/16 10:46 hydrocodone bitartrate AdvReac Itching Verified 11/27/16 10:46 [From Vicodin] midazolam [From Versed] AdvReac Unknown Verified 11/27/16 10:46 morphine AdvReac Hallucinati Verified 11/27/16 10:46 ons tramadol AdvReac Itching Verified 11/27/16 10:46 artifical sweetener AdvReac Unknown Uncoded 11/27/16 09:38 Physical Exam Vitals: Vital Signs Temp Pulse Pulse Resp BP BP Pulse Ox 11/28/16 10:00 97.2 F L 82 18 128/65 96 11/28/16 04:00 61 16 113/55 97 11/28/16 00:00 97.6 F 95 16 138/53 93 L 11/27/16 20:00 97.7 F 77 18 123/54 94 L 11/27/16 15:35 98.1 F 80 18 133/91 96 11/27/16 15:22 97.4 F L 94 18 119/62 99 11/27/16 13:30 81 18 121/54 98 Intake and Output 11/27/16 11/28/16 11/28/16 22:59 06:59 14:59 Intake Total 120 10 Balance 120 10 Intake: IV 10 0.9 10 Oral 120 Other: # Voids 2 Weight 90.6 kg 90.6 kg Patient Weight 11/29/16 06:59 Weight 90.6 kg General: The patient is awake and alert, in no distress. Skin: no rashes or lesions are noted no masses palpable. Eye: Pupils are equal, round and reactive to light, there is normal conjunctiva bilaterally. Ears, nose, mouth and throat: There are moist mucous membranes some erythema and laceration of the left cheek from inside the mouth. Neck: The neck is supple, there is no thyromegaly. Cardiovascular: S1-S2 regular rate and rhythm. No murmur. Respiratory: Unlabored breathing clear to auscultation bilaterally Gastrointestinal: Soft, non-distended, non-tender abdomen without masses or organomegaly noted. There is no rebound or guarding present. Bowel sounds are unremarkable. Psychiatric: Patient is awake and alert and oriented 3, appropriate mood & affect, normal judgment. Results CBC & Chem 7: 11/28/16 05:41 11/28/16 05:41 Labs: Abnormal Lab Results - Last 24 Hours (Table) 11/27/16 11/27/16 11/27/16 Range/Units 10:00 10:00 10:00 RBC 3.64 L (3.80-5.40) m/uL Hgb 10.9 L (11.4-16.0) gm/dL Hct 33.3 L (34.0-46.0) % RDW 18.1 H (11.5-15.5) % Plt Count (150-450) k/uL Chloride 96 L (98-107) mmol/L BUN 32 H (7-17) mg/dL Creatinine 5.06 H* (0.52-1.04) mg/dL Glucose 156 H (74-99) mg/dL POC Glucose (mg/dL) (75-99) mg/dL Hemoglobin A1c (4.2-6.1) % Phosphorus (2.5-4.5) mg/dL Alkaline Phosphatase 182 H (38-126) U/L Troponin I 0.044 H* (0.000-0.034) ng/mL 11/27/16 11/27/16 11/27/16 Range/Units 10:00 15:57 16:47 RBC (3.80-5.40) m/uL Hgb (11.4-16.0) gm/dL Hct (34.0-46.0) % RDW (11.5-15.5) % Plt Count (150-450) k/uL Chloride (98-107) mmol/L BUN (7-17) mg/dL Creatinine (0.52-1.04) mg/dL Glucose (74-99) mg/dL POC Glucose (mg/dL) 118 H (75-99) mg/dL Hemoglobin A1c 7.2 H (4.2-6.1) % Phosphorus (2.5-4.5) mg/dL Alkaline Phosphatase (38-126) U/L Troponin I 0.053 H* (0.000-0.034) ng/mL 11/27/16 11/27/16 11/28/16 Range/Units 21:03 22:34 05:41 RBC 3.54 L (3.80-5.40) m/uL Hgb 10.7 L (11.4-16.0) gm/dL Hct 32.6 L (34.0-46.0) % RDW 17.8 H (11.5-15.5) % Plt Count 141 L (150-450) k/uL Chloride (98-107) mmol/L BUN (7-17) mg/dL Creatinine (0.52-1.04) mg/dL Glucose (74-99) mg/dL POC Glucose (mg/dL) 221 H (75-99) mg/dL Hemoglobin A1c (4.2-6.1) % Phosphorus (2.5-4.5) mg/dL Alkaline Phosphatase (38-126) U/L Troponin I 0.041 H* (0.000-0.034) ng/mL 11/28/16 11/28/16 11/28/16 Range/Units 05:41 05:41 05:56 RBC (3.80-5.40) m/uL Hgb (11.4-16.0) gm/dL Hct (34.0-46.0) % RDW (11.5-15.5) % Plt Count (150-450) k/uL Chloride (98-107) mmol/L BUN 48 H (7-17) mg/dL Creatinine 7.20 H* (0.52-1.04) mg/dL Glucose 114 H (74-99) mg/dL POC Glucose (mg/dL) 119 H (75-99) mg/dL Hemoglobin A1c (4.2-6.1) % Phosphorus 5.6 H (2.5-4.5) mg/dL Alkaline Phosphatase (38-126) U/L Troponin I 0.050 H* (0.000-0.034) ng/mL Assessment and Plan (1) Cellulitis of left internal cheek Status: Acute Plan: 1-patient with pain into the left internal cheek area with some evidence of a abrasion and swelling question secondary to trauma the likely organism need to cover will be oral andrés 2-patient to have history of penicillin Keflex ALLERGY limiting the number of antibiotic that could be safely used 3-we'll go ahead and check a CT of the maxillofacial area with no IV contrast to make sure that evidence of any abscess 4-if CT is negative for any abscess patient should be able to finish therapy with oral clindamycin 300 mg daily for another 10 days Thank you for this consultation will follow this patient along with you Time with Patient: Greater than 30
[2016-11-29] MEDS: SODIUM CHLORIDE 0.9% 1,000 ML IV SCH (11:20)
[2016-11-29 11:35] LABS: Glucose,Whole Blood 313 mg/dL (75-99)
[2016-11-29] MEDS: MAGNESIUM OXIDE 400 MG TAB PO SCH (11:50)
--- NOTE | 2016-11-29 13:50 | PN ---
The patient is seen for followup for end-stage renal disease. She was admitted to the hospital with chest pain and bradycardia and hypotension with dialysis. She has been fairly stable. Cardiac enzymes were not elevated. Patient is due to for hemodialysis today. On examination, blood pressure is 128/60, heart rate 81 per minute. She is afebrile. EXAMINATION OF THE HEART: S1 and S2. EXAMINATION OF THE LUNGS: Bilateral breath sounds are heard. Abdomen is soft, nontender. Examination of the lower extremities shows no significant edema. FINGER BUFF SEWER exam is grossly intact. Labs show sodium 140 from yesterday, potassium was 3.8. Hemoglobin 10.7 g/dL. ASSESSMENT: 1. End-stage renal disease on hemodialysis on Sunday, Sunday, Sunday schedule. 2. Chest pains and bradycardia, while on dialysis, currently resolved. 3. Possible intravascular volume depletion. 4. Anemia of chronic disease. 5. Chronic kidney disease bone mineral disorder. PLAN: We will dialyze the patient today. Goal UF about 1.5 L . Possible discharge today after dialysis. ( ) will be adjusted as outpatient. MTDD
--- NOTE | 2016-11-29 14:16 | P.PN ---
Subjective Principal diagnosis: Hypotension and bradycardia This is a pleasant 61-year-old female who follows regularly with Dr. Rothman in the office. Patient has a known history of coronary artery disease with prior bypass surgery, and occlusion of graft with subsequent PCI. Most recent cardiac catheterization was performed in June by Dr. Rothman which revealed a patent MICHELLE to the LAD, chronically occluded LAD, right coronary artery and left circumflex with patent stent to the ramus intermediate. Maximal medical therapy advised. She also has history of hypertension, diabetes , hyperlipidemia and chronic renal failure on hemodialysis. She has had multiple admissions to the hospital with hypotension and bradycardia during dialysis. Again on this admission patient was admitted from the dialysis center , apparently the blood pressure went down into the 70s and the heart rate was noted to be in the 30s to 40s. Patient felt very weak she states she also had an episode of chest heaviness during this episode and for this reason EMS was called and the patient was brought to the emergency room. EKG on admission here shows a normal sinus rhythm with occasional PVCs, chest x-ray reveals mild cardiomegaly with mild pulmonary vascular congestion. Small left pleural effusion. Hemoglobin 10.7, platelet count 141, white blood cell count 8.4, potassium 3.8, BUN 48, creatinine 7.2. Magnesium level 2.0. troponins 0.04, 0.05,, 0.05. Blood pressure on arrival here 128/60, this morning's blood pressure 114/50 with a heart rate in the 60s. 97% on room air. Examination this morning, patient feels well, denies any chest pain, no shortness of breath , denies any weakness or unsteadiness. 11/29/2016 Patient seen in consultation yesterday by Dr. Engle, his recommendation was to decrease the amount of time duration of dialysis. Heart rate and blood pressure stable today. Patient feels well overall, no complaints. Objective - Vital Signs Vital signs: Vital Signs Temp 97.8 F 11/29/16 12:00 Pulse 76 11/29/16 12:00 Resp 18 11/29/16 12:00 BP 112/57 11/29/16 12:00 Pulse Ox 96 11/29/16 12:00 Intake & Output 11/28/16 11/29/16 11/29/16 18:59 06:59 18:59 Intake Total 240 10 900 Output Total 300 Balance 240 10 600 Weight 90.6 kg 91.8 kg Intake: IV 10 0.9 10 Oral 240 900 Output: Urine 300 Other: # Voids 0 2 1 - Exam PHYSICAL EXAMINATION: HEENT: Head is atraumatic, normocephalic. Pupils equal, round. Neck is supple. There is no elevated jugular venous pressure. HEART EXAMINATION: Heart S1 S2 1 systolic murmur is heard. CHEST EXAMINATION: Lungs are clear to auscultation and precussion. No chest wall tenderness is noted on palpation or with deep breathing. ABDOMEN: Soft, nontender. Bowel sounds are heard. No organomegaly noted. EXTREMITIES: 2+ peripheral pulses with no evidence of peripheral edema and no calf tenderness noted. NEUROLOGIC patient is awake, alert and oriented -3. . - Labs CBC & Chem 7: 11/28/16 05:41 11/28/16 05:41 Labs: Abnormal Lab Results - Last 24 Hours (Table) 11/28/16 11/28/16 11/29/16 Range/Units 16:26 20:45 06:20 POC Glucose (mg/dL) 330 H 355 H 316 H (75-99) mg/dL 11/29/16 Range/Units 11:28 POC Glucose (mg/dL) 313 H (75-99) mg/dL Assessment and Plan Plan: Assessment and plan #1 hypotension and bradycardia during dialysis with transient chest discomfort. No evidence to suggest acute coronary syndrome. Troponins 0.04, 0.05, 0.04. On review of her admissions, patient consistently has abnormal troponins. #2 known history of coronary artery disease with prior bypass surgery and PCI. Most recent cath performed in June of this year medical therapy advised #3 history of hypertension #4 hyperlipidemia # 5 diabetes #6 end-stage renal disease on hemodialysis Plan From cardiology's perspective, patient does not require pacemaker implantation at this time. The recommendation is that the duration of her dialysis be shortened. She may be able to be discharged home from cardiology's perspective to follow-up with Dr. Rothman in the office post discharge. DNP note has been reviewed, I agree with a documented findings and plan of care. Patient was seen and examined.
--- NOTE | 2016-11-29 15:37 | P.PN ---
Subjective Principal diagnosis: Left cheek pain internal question of cellulitis The patient is afebrile, pain inside her mouth on the left cheek has improved, the patient denies significant chest pain shortness of breath or cough complaining of some gastric upset some nausea but no vomiting and no diarrhea Objective - Vital Signs Vital signs: Vital Signs Temp 98.4 F 11/28/16 20:00 Pulse 75 11/29/16 04:00 Resp 18 11/29/16 04:00 BP 108/59 11/29/16 04:00 Pulse Ox 97 11/29/16 04:00 Intake & Output 11/28/16 11/29/16 11/29/16 18:59 06:59 18:59 Intake Total 240 10 480 Output Total 300 Balance 240 10 180 Weight 90.6 kg 91.8 kg Intake: IV 10 0.9 10 Oral 240 480 Output: Urine 300 Other: # Voids 0 2 1 - Exam GENERAL DESCRIPTION:[ Patient is awake and alert in no distress] HEENT: [Oral mucosa is dry and no pharyngeal erythema, left cheek swelling and redness has improved] EYES : [pallor no scleral icterus] RESPIRATORY SYSTEM: [Unlabored breathing clear to auscultation] CARDIA VASCULAR SYSTEM: [S1-S2 regular rate and rhythm no murmur] GI: [Abdominal soft there's no tenderness no organomegaly] EXTREMITIES: [No edema feet] - Labs CBC & Chem 7: 11/28/16 05:41 11/28/16 05:41 Labs: Abnormal Lab Results - Last 24 Hours (Table) 11/28/16 11/28/16 11/28/16 Range/Units 11:44 16:26 20:45 POC Glucose (mg/dL) 272 H 330 H 355 H (75-99) mg/dL 11/29/16 Range/Units 06:20 POC Glucose (mg/dL) 316 H (75-99) mg/dL Assessment and Plan (1) Cellulitis of left internal cheek Status: Acute Plan: 1-patient with pain into the left internal cheek area with some evidence of a abrasion and swelling question secondary to trauma the likely organism need to cover will be oral andrés, patient CT of the maxillofacial area with no evidence of any abscess, plan to finish therapy with oral clindamycin 300 mg daily for another 10 days
[2016-11-29 16:46] LABS: Glucose,Whole Blood 247 mg/dL (75-99)
--- NOTE | 2016-11-29 16:50 | P.PN ---
Subjective This is a 61-year-old female with a known past medical history of coronary artery disease with previous myocardial infarction and coronary artery bypass grafting, diabetes mellitus, hyperlipidemia, chronic kidney disease requires hemodialysis Sunday, and hypothyroidism. Patient has had multiple hospitalizations due to bradycardia and hypotension during dialysis. She is on Midrin. Patient reports she was receiving dialysis today and just was not feeling well. She was lightheaded and dizzy also having chest pains. Patient felt that she was near passing out. Ambulance was called and she was brought into the emergency room. Patient completed 3 out of 4 hours of the hemodialysis. She had become lightheaded and diaphoretic. Heart rate had been down to the 37 and patient reports blood pressures to be as low as 70/30. She received IV fluids in the dialysis center as well as an extra dose of Midrin. On admission patient had a blood pressure 128/65 and heart rate around 82. EKG had shown sinus rhythm with PVCs and prolonged QT interval. Objective - Vital Signs Vital signs: Vital Signs Temp 97.8 F 11/29/16 12:00 Pulse 76 11/29/16 12:00 Resp 18 11/29/16 16:00 BP 112/57 11/29/16 12:00 Pulse Ox 96 11/29/16 12:00 Intake & Output 11/28/16 11/29/16 11/29/16 18:59 06:59 18:59 Intake Total 240 10 900 Output Total 300 Balance 240 10 600 Weight 90.6 kg 91.8 kg Intake: IV 10 0.9 10 Oral 240 900 Output: Urine 300 Other: # Voids 0 2 1 - Exam HEENT head normocephalic and atraumatic Neck is supple no JVD no goiter no lymphadenopathy Chest is clear to auscultation no crackles no wheezing Cardiac exam reveals regular heart sounds S1 and S2 no gallops no murmurs Abdomen is soft nontender no organomegaly with normal bowel sounds Extremity exam reveals no edema no cyanosis or clubbing - Labs CBC & Chem 7: 11/28/16 05:41 11/28/16 05:41 Labs: Abnormal Lab Results - Last 24 Hours (Table) 11/28/16 11/29/16 11/29/16 Range/Units 20:45 06:20 11:28 POC Glucose (mg/dL) 355 H 316 H 313 H (75-99) mg/dL 11/29/16 Range/Units 16:44 POC Glucose (mg/dL) 247 H (75-99) mg/dL Assessment and Plan Plan: 1. Bradycardia and hypotension during dialysis. Patient reports receiving IV fluids at dialysis center and an extra dose of Midrin. Blood pressure and heart rate are currently stable. Consult cardiology and nephrology. on 11/29/2016 patient will have dialysis in hospital to monitor BP and heart rate and possible adjustment of dialysis settings. If stable patient can be discharged home 2. Episode of chest pain during dialysis. Monitor cardiac enzymes. First troponin mildly elevated at 0.044. EKG showing sinus rhythm with PVCs and prolonged QT interval. Last heart catheterization was June 2016 showing triple-vessel coronary artery disease patent stent to the ramus intermedius, patent MICHELLE to LAD and chronic occluded LAD, right coronary artery and left circumflex. Cardiology had recommended medical management at that time. Will await further cardiology recommendations 3. Near syncopal episode possibly related to the bradycardia and hypotension. Last echo in July 2016 shows an EF of 40-45% with severe mitral regurgitation. Continue telemetry monitoring 4. End-stage renal disease hemodialysis on Sunday. Consult nephrology 5. Atelectasis on chest x-ray without pneumonia. White count within normal range patient afebrile and no cough. Start incentive spirometer 6. Diabetes mellitus type 2: Continue her Lantus. Add sliding scale coverage 7. History of coronary artery disease and previous coronary artery bypass grafting and cardiac stents 8. Oral ulcer left upper gum of the mouth. Remove dentures. Add cool solution , patient was seen by Dr Hussein infectious disease, he ordered a CT scan to rule out abcess formation. Continue IV Clindamycin at this time. 9. GI prophylaxis Protonix and DVT prophylaxis subcu heparin
[2016-11-29] MEDS: ACETAMINOPHEN TAB 325 MG TAB PO PRN (20:34)
[2016-11-29] MEDS: CINACALCET 30 MG TAB PO SCH (20:34)
[2016-11-29] MEDS: ASPIRIN 81 MG CHEW PO SCH (20:34)
[2016-11-29] MEDS: ATORVASTATIN 80 MG TAB PO SCH (20:34)
[2016-11-29 20:35] LABS: Glucose,Whole Blood 163 mg/dL (75-99)
[2016-11-29] MEDS: MONTELUKAST 10 MG TAB PO SCH (20:35)
[2016-11-29] MEDS: INSULIN GLARGINE 100 UNIT/ML 10 ML VIAL SQ SCH (22:48)
[2016-11-30 06:06] LABS: Glucose,Whole Blood 132 mg/dL (75-99)
[2016-11-30] MEDS: CALCIUM ACETATE 667 MG CAP PO SCH ×2 (06:27→12:03)
[2016-11-30] MEDS: MIDODRINE 5 MG TAB PO SCH ×2 (06:28→12:04)
[2016-11-30] MEDS: INSULIN LISPRO (humaLOG) 300 UNIT/3 ML VIAL SQ SCH ×2 (06:28→12:04)
[2016-11-30] MEDS: CLINDAMYCIN 150 MG CAP PO SCH (09:14)
[2016-11-30] MEDS: SODIUM CHLORIDE 0.9% 1,000 ML IV SCH (09:16)
[2016-11-30] MEDS: MAG HYDROX/AL HYDROX/SIMETH 30 ML, LIDOCAINE VISCOUS 30 ML, diphenhydrAMINE ELIXIR 75 M... PO SCH ×4 (09:16)
[2016-11-30] MEDS: SERTRALINE 50 MG TAB PO SCH (09:16)
[2016-11-30] MEDS: HYDROCORTISONE SUPPOSITORY 25 MG SUPP RECTAL SCH (09:16)
[2016-11-30] MEDS: HEPARIN SODIUM,PORCINE 5,000 UNIT/ML 1 ML VIAL SQ SCH (09:16)
[2016-11-30] MEDS: ALLOPURINOL 100 MG TAB PO SCH (09:17)
[2016-11-30] MEDS: PANTOPRAZOLE 40 MG TABLET PO SCH (09:17)
[2016-11-30] MEDS: CLOPIDOGREL 75 MG TAB PO SCH (09:17)
[2016-11-30] MEDS: SODIUM BICARBONATE TAB 650 MG TAB PO SCH (09:17)
[2016-11-30] MEDS: GABAPENTIN 100 MG CAP PO SCH (09:17)
[2016-11-30] MEDS: ISOSORBIDE MONONITRATE ER 30 MG TAB.ER.24H PO SCH (09:17)
[2016-11-30] MEDS: FUROSEMIDE 80 MG TAB PO SCH (09:17)
--- NOTE | 2016-11-30 09:18 | P.PN ---
Subjective Patient is seen in follow-up for end-stage renal disease. She is maintained on hemodialysis on a Sunday schedule. Patient presented with chest pain as well as hypotension and bradycardia during dialysis. She is hemodynamically stable now. She underwent hemodialysis last night and tolerated the procedure well. However no ultrafiltration was done. Did have some chest discomfort post dialysis which resolved. No further episodes. Vital signs are stable. General: The patient appeared well nourished and normally developed. HEENT: Head exam is unremarkable. Neck is without jugular venous distension. LUNGS: Lungs are clear to auscultation and percussion. Breath sounds decreased. HEART: Rate and Rhythm are regular. First and second heart sounds normal. No murmurs, rubs or gallops. ABDOMEN: Abdominal exam reveals normal bowel sounds. Non-tender and non- distended. No evidence of peritonitis. EXTREMITITES: No clubbing, cyanosis, or edema. Objective - Vital Signs Vital signs: Vital Signs Temp 97.6 F 11/30/16 04:00 Pulse 72 11/30/16 04:00 Resp 18 11/30/16 04:00 BP 116/67 11/30/16 04:00 Pulse Ox 93 L 11/30/16 04:00 Intake & Output 11/29/16 11/30/16 11/30/16 18:59 06:59 18:59 Intake Total 1020 Output Total 800 Balance 220 Weight 61.1 kg Intake: Oral 1020 Output: Urine 800 Other: # Voids 1 0 - Labs CBC & Chem 7: 11/28/16 05:41 11/28/16 05:41 Labs: Abnormal Lab Results - Last 24 Hours (Table) 11/29/16 11/29/16 11/29/16 Range/Units 11:28 16:44 20:30 POC Glucose (mg/dL) 313 H 247 H 163 H (75-99) mg/dL 11/30/16 Range/Units 06:05 POC Glucose (mg/dL) 132 H (75-99) mg/dL Assessment and Plan Plan: Assessment: #1. End-stage renal disease maintained on hemodialysis on a Sunday schedule. #2. Bradycardia and hypotension during dialysis. Improved. #3. History of coronary artery disease status post CABG. #4. Systolic CHF with ejection fraction of 40-45% with severe mitral regurgitation and pulmonary hypertension. #5. Chronic kidney disease mineral bone disease. Plan: Hemodialysis tomorrow. I will decrease the duration of her dialysis to 3-1/2 hours and will also use lower blood flows as long as she is making her clearance. Increase midodrine to 10 mg bid. Will avoid UF more than 2 L. Cardiology following. Potential discharge today.
--- NOTE | 2016-11-30 10:59 | P.DS ---
Providers Date of admission: 11/28/16 14:38 Expected date of discharge: 11/30/16 Attending physician: Kyle Campos Consults: 11/27/16 15:41 Consult Physician Routine Consulting Provider: Song Rothman Consult Reason/Comments: chest pain, bradycardia and hypotension during dialysis Do you want consulting provider notified?: Yes Consult Physician Routine Consulting Provider: Gricelda Andrea Consult Reason/Comments: ESRD and hemodialysis Do you want consulting provider notified?: Yes 11/27/16 16:29 Consult Physician Routine Consulting Provider: Carmen Hussein Consult Reason/Comments: mouth ulcer, possible abscess Do you want consulting provider notified?: Yes 11/28/16 09:34 Consult Physician Routine Consulting Provider: Troy Engle Consult Reason/Comments: bradycardia Do you want consulting provider notified?: Already Contacted Primary care physician: Kyle Campos [facility] Course: Discharge diagnosis 1. Bradycardia and hypotension during dialysis. Patient reports receiving IV fluids at dialysis center and an extra dose of Midodrin. Blood pressure and heart rate are currently stable. Consult cardiology and nephrology. on 11/29/2016 patient will have dialysis in hospital to monitor BP and heart rate and possible adjustment of dialysis settings. If stable patient can be discharged home. Patient had adjustment of dialysis settings yesterday. Blood pressure and heart rate remained stable. She's been cleared by cardiology and neurology for discharge 2. Episode of chest pain during dialysis. Monitor cardiac enzymes. Highly elevated troponins due to chronic kidney disease. EKG showing sinus rhythm with PVCs and prolonged QT interval. Last heart catheterization was June 2016 showing triple-vessel coronary artery disease patent stent to the ramus intermedius, patent MICHELLE to LAD and chronic occluded LAD, right coronary artery and left circumflex. Cardiology had recommended medical management at that time. He waited by cardiology 3. Near syncopal episode possibly related to the bradycardia and hypotension. Last echo in July 2016 shows an EF of 40-45% with severe mitral regurgitation. Continue telemetry monitoring 4. End-stage renal disease hemodialysis on Sunday. Consult nephrology 5. Atelectasis on chest x-ray without pneumonia. White count within normal range patient afebrile and no cough. Start incentive spirometer 6. Diabetes mellitus type 2: Continue her Lantus. Add sliding scale coverage 7. History of coronary artery disease and previous coronary artery bypass grafting and cardiac stents 8. Oral ulcer left upper gum of the mouth. Remove dentures. No evidence of abscess on computed tomography scan. Patient followed by infectious disease. The recommending clindamycin for 10 more days. Hospital course This is a 61-year-old female with a known past medical history of coronary artery disease with previous myocardial infarction and coronary artery bypass grafting, diabetes mellitus, hyperlipidemia, chronic kidney disease requires hemodialysis Sunday, and hypothyroidism. Patient has had multiple hospitalizations due to bradycardia and hypotension during dialysis. She is on Midrin. Patient reports she was receiving dialysis today and just was not feeling well. She was lightheaded and dizzy also having chest pains. Patient felt that she was near passing out. Ambulance was called and she was brought into the emergency room. Patient completed 3 out of 4 hours of the hemodialysis. She had become lightheaded and diaphoretic. Heart rate had been down to the 37 and patient reports blood pressures to be as low as 70/30. She received IV fluids in the dialysis center as well as an extra dose of Midrin. On admission patient had a blood pressure 128/65 and heart rate around 82. EKG had shown sinus rhythm with PVCs and prolonged QT interval. Chest x-ray showed mild cardiomegaly with possible mild peripheral vascular congestion and small left pleural effusion with adjacent atelectasis and/or consolidation. Patient denies any fever chills or sweats. Denies any cough. Denies any nausea or vomiting. Denies any bowel movement changes or urinary symptoms. Patient did have a mildly elevated troponin of 0.044. But this also could be related to her chronic kidney disease. Patient is complaining of sore this in the left part of her jaw. There appears to be an ulceration where her dentures rubbing against her gumline. She denies any drainage from that area. Patient evaluated by cardiology, nephrology and infectious disease. Cardiology had recommended adjustments in the dialysis settings. They had no new medication recommendations. And that patient did not require a pacemaker at this time. Therefore nephrology adjusted dialysis settings and patient's blood pressure and heart rate were better yesterday during dialysis. Patient is scheduled for dialysis outpatient tomorrow her dialysis time will be shortened to 3-1/2 hours and they'll also use lower blood flows as long she is making her clearance. She is to continue on the Midodrine. Patient is eager for discharge home. She will be placed on clindamycin 300 mg 3 times a day for 10 more days for the oral mouth ulcers. There is no evidence of abscess on CAT scan. Patient is medically stable for discharge. Please refer to chart for any further details I performed an examination of the patient and discussed their management with the physician Gas Appliance Mechanic. I have reviewed the Physician Gas Appliance Mechanic's notes and agree with the documented findings and plan of care Patient Condition at Discharge: Stable Plan - Discharge Summary New Discharge Prescriptions: New Clindamycin [Cleocin] 300 mg PO TID #30 capsule Continue Gabapentin [Neurontin] 100 mg PO BID@0900,2100 Allopurinol [Zyloprim] 100 mg PO DAILY@0900 Nitroglycerin Sl Tabs [Nitrostat] 0.4 mg SUBLINGUAL Q5M PRN #25 tab PRN Reason: Chest Pain Omeprazole [PriLOSEC] 20 mg PO BID@0900,2100 Insulin Glargine [Lantus] 35 unit SQ HS Mv-Min/Vit C/Glu/Karla HCl/Hc124 [Airborne Tablet Chewable] 1 tab PO QID PRN PRN Reason: IMMUNE HEALTH Loperamide [Imodium] 2 mg PO QID PRN PRN Reason: Diarrhea Sertraline [Zoloft] 50 mg PO DAILY Clopidogrel [Plavix] 75 mg PO DAILY Insulin Aspart [NovoLOG] See Protocol SQ AC-TID Calcium Acetate [PhosLo] 2,001 mg PO AC-TID Slow-Mag 71.5mg 143 mg PO BID Cinacalcet HCl [Sensipar] 30 mg PO HS Sodium Bicarbonate Tab 650 mg PO BID Furosemide [Lasix] 80 mg PO BID Aspirin [Adult Low Dose Aspirin EC] 81 mg PO HS Isosorbide Mononitrate ER [Imdur] 30 mg PO QAM Montelukast [Singulair] 10 mg PO HS #30 tab Calcium Acetate [PhosLo] 667 mg PO HS Hydrocortisone Suppository [Anusol-Hc] 25 mg RECTAL DAILY #30 supp Midodrine [ProAmatine] 10 mg PO AC-TID #90 tab Acetaminophen Tab [Tylenol] 650 mg PO Q6HR PRN PRN Reason: Pain Atorvastatin [Lipitor] 80 mg PO HS tab Discharge Medication List Allopurinol [Zyloprim] 100 mg PO DAILY@0900 11/15/14 [History] Gabapentin [Neurontin] 100 mg PO BID@0900,2100 11/15/14 [History] Nitroglycerin Sl Tabs [Nitrostat] 0.4 mg SUBLINGUAL Q5M PRN #25 tab 11/19/14 [Rx ] Omeprazole [PriLOSEC] 20 mg PO BID@0900,2100 01/31/15 [History] Insulin Glargine [Lantus] 35 unit SQ HS 03/03/15 [History] Loperamide [Imodium] 2 mg PO QID PRN 03/03/15 [History] Mv-Min/Vit C/Glu/Karla HCl/Hc124 [Airborne Tablet Chewable] 1 tab PO QID PRN 03/03 [History] Sertraline [Zoloft] 50 mg PO DAILY 03/03/15 [History] Clopidogrel [Plavix] 75 mg PO DAILY 04/23/15 [History] Aspirin [Adult Low Dose Aspirin EC] 81 mg PO HS 05/06/16 [History] Calcium Acetate [PhosLo] 2,001 mg PO AC-TID 05/06/16 [History] Cinacalcet HCl [Sensipar] 30 mg PO HS 05/06/16 [History] Furosemide [Lasix] 80 mg PO BID 05/06/16 [History] Insulin Aspart [NovoLOG] See Protocol SQ AC-TID 05/06/16 [History] Slow-Mag 71.5mg 143 mg PO BID 05/06/16 [History] Sodium Bicarbonate Tab 650 mg PO BID 05/06/16 [History] Isosorbide Mononitrate ER [Imdur] 30 mg PO QAM 06/24/16 [History] Montelukast [Singulair] 10 mg PO HS #30 tab 06/30/16 [Rx] Calcium Acetate [PhosLo] 667 mg PO HS 08/02/16 [History] Hydrocortisone Suppository [Anusol-Hc] 25 mg RECTAL DAILY #30 supp 08/07/16 [Rx] Midodrine [ProAmatine] 10 mg PO AC-TID #90 tab 08/07/16 [Rx] Acetaminophen Tab [Tylenol] 650 mg PO Q6HR PRN 10/02/16 [History] Atorvastatin [Lipitor] 80 mg PO HS tab 10/03/16 [Rx] Clindamycin [Cleocin] 300 mg PO TID #30 capsule 11/30/16 [Rx] Follow up Appointment(s)/Referral(s): Kyle Campos MD [Primary Care Provider] - 1 Week Jh Santillan MD [STAFF PHYSICIAN] - 1 Week Activity/Diet/Wound Care/Special Instructions: Diet: cardiac, renal, diabetic Activity: as tolerated Discharge Disposition: HOME SELF-CARE
--- NOTE | 2016-11-30 11:17 | P.PN ---
Subjective Principal diagnosis: Hypotension and bradycardia This is a pleasant 61-year-old female who follows regularly with Dr. Rothman in the office. Patient has a known history of coronary artery disease with prior bypass surgery, and occlusion of graft with subsequent PCI. Most recent cardiac catheterization was performed in June by Dr. Rothman which revealed a patent MICHELLE to the LAD, chronically occluded LAD, right coronary artery and left circumflex with patent stent to the ramus intermediate. Maximal medical therapy advised. She also has history of hypertension, diabetes , hyperlipidemia and chronic renal failure on hemodialysis. She has had multiple admissions to the hospital with hypotension and bradycardia during dialysis. Again on this admission patient was admitted from the dialysis center , apparently the blood pressure went down into the 70s and the heart rate was noted to be in the 30s to 40s. Patient felt very weak she states she also had an episode of chest heaviness during this episode and for this reason EMS was called and the patient was brought to the emergency room. EKG on admission here shows a normal sinus rhythm with occasional PVCs, chest x-ray reveals mild cardiomegaly with mild pulmonary vascular congestion. Small left pleural effusion. Hemoglobin 10.7, platelet count 141, white blood cell count 8.4, potassium 3.8, BUN 48, creatinine 7.2. Magnesium level 2.0. troponins 0.04, 0.05,, 0.05. Blood pressure on arrival here 128/60, this morning's blood pressure 114/50 with a heart rate in the 60s. 97% on room air. Examination this morning, patient feels well, denies any chest pain, no shortness of breath , denies any weakness or unsteadiness. 11/29/2016 Patient seen in consultation yesterday by Dr. Engle, his recommendation was to decrease the amount of time duration of dialysis. Heart rate and blood pressure stable today. Patient feels well overall, no complaints. 11/30/2016. Patient seen and examined this morning, she did have a dialysis treatment which was shortened, no evidence of any hypotension or bradycardia. She scheduled to be discharged home today. We will make her a follow-up appointment in the office with Dr. Rothman. Objective - Vital Signs Vital signs: Vital Signs Temp 97.6 F 11/30/16 04:00 Pulse 76 11/30/16 08:00 Resp 18 11/30/16 08:00 BP 119/58 11/30/16 08:00 Pulse Ox 93 L 11/30/16 08:00 Intake & Output 11/29/16 11/30/16 11/30/16 18:59 06:59 18:59 Intake Total 1020 Output Total 800 Balance 220 Weight 61.1 kg Intake: Oral 1020 Output: Urine 800 Other: # Voids 1 0 - Exam PHYSICAL EXAMINATION: HEENT: Head is atraumatic, normocephalic. Pupils equal, round. Neck is supple. There is no elevated jugular venous pressure. HEART EXAMINATION: Heart S1 S2 1 systolic murmur is heard. CHEST EXAMINATION: Lungs are clear to auscultation and precussion. No chest wall tenderness is noted on palpation or with deep breathing. ABDOMEN: Soft, nontender. Bowel sounds are heard. No organomegaly noted. EXTREMITIES: 2+ peripheral pulses with no evidence of peripheral edema and no calf tenderness noted. NEUROLOGIC patient is awake, alert and oriented -3. . - Labs CBC & Chem 7: 11/28/16 05:41 11/28/16 05:41 Labs: Abnormal Lab Results - Last 24 Hours (Table) 11/29/16 11/29/16 11/29/16 Range/Units 11:28 16:44 20:30 POC Glucose (mg/dL) 313 H 247 H 163 H (75-99) mg/dL 11/30/16 Range/Units 06:05 POC Glucose (mg/dL) 132 H (75-99) mg/dL Assessment and Plan Plan: Assessment and plan #1 hypotension and bradycardia during dialysis with transient chest discomfort. No evidence to suggest acute coronary syndrome. Troponins 0.04, 0.05, 0.04. On review of her admissions, patient consistently has abnormal troponins. #2 known history of coronary artery disease with prior bypass surgery and PCI. Most recent cath performed in June of this year medical therapy advised #3 history of hypertension #4 hyperlipidemia # 5 diabetes #6 end-stage renal disease on hemodialysis Plan From cardiology's perspective, patient may be able to be discharged once cleared by the primary. We will make her a follow-up appointment to see Dr. Rothman in the office post discharge. DNP note has been reviewed, I agree with a documented findings and plan of care. Patient was seen and examined.
[2016-11-30 11:49] LABS: Glucose,Whole Blood 190 mg/dL (75-99)
[2016-11-30] MEDS: MAGNESIUM OXIDE 400 MG TAB PO SCH (12:03)
[2016-11-30] MEDS: ACETAMINOPHEN TAB 325 MG TAB PO PRN (12:07)
[2016-11-30 12:42] VITALS: BP 128/60; PULSE 74; TEMP 98
== END 2016-11-30 14:41 | disposition home or self-care (01) | DRG 312 ==
LOC: EC 09:08 → 6SEL 14:19 → OBSVTOIN 11-28 14:38
PROVIDERS: ADMIT Internal Medicine; ATTEND Internal Medicine
DX: I95.3 Hypotension of hemodialysis (principal); I13.2 Hypertensive heart and chronic kidney disease with heart failure and with stage 5 chronic kidney disease, or end stage renal disease; N18.6 End stage renal disease; E11.22 Type 2 diabetes mellitus with diabetic chronic kidney disease; I27.2 Other secondary pulmonary hypertension; E11.40 Type 2 diabetes mellitus with diabetic neuropathy, unspecified; I50.22 Chronic systolic (congestive) heart failure; J98.11 Atelectasis; L03.211 Cellulitis of face; R00.1 Bradycardia, unspecified; E03.9 Hypothyroidism, unspecified; D63.8 Anemia in other chronic diseases classified elsewhere; E78.5 Hyperlipidemia, unspecified; F32.9 Major depressive disorder, single episode, unspecified; I08.1 Rheumatic disorders of both mitral and tricuspid valves; K12.1 Other forms of stomatitis; I45.81 Long QT syndrome; Z96.1 Presence of intraocular lens; I25.10 Atherosclerotic heart disease of native coronary artery without angina pectoris; I25.2 Old myocardial infarction; Z79.02 Long term (current) use of antithrombotics/antiplatelets; Z99.2 Dependence on renal dialysis; Z79.4 Long term (current) use of insulin; Z79.82 Long term (current) use of aspirin; Z79.899 Other long term (current) drug therapy; Z82.49 Family history of ischemic heart disease and other diseases of the circulatory system; Z83.3 Family history of diabetes mellitus; Z88.0 Allergy status to penicillin; Z95.1 Presence of aortocoronary bypass graft; Z95.5 Presence of coronary angioplasty implant and graft; Z98.41 Cataract extraction status, right eye; Z98.42 Cataract extraction status, left eye; Z88.5 Allergy status to narcotic agent; Z91.013 Allergy to seafood
CPT/HCPCS: 36415; 70486; 71020; 80048; 80053; 82533; 82550; 82553; 83036; 83735; 84100; 84484; 85025; 85610; 85730; 90935; 93005; 93306; 99285

== ENCOUNTER 2017-03-19 07:24 | Inpatient (IN) | payer MEDICARE, BC ==
[2017-03-19] MEDS ORDERED: LEVOFLOXACIN 750MG-D5W PMX 750 MG in DEXTROSE/WATER 1 150ML.BAG IVPB STA (08:04)
[2017-03-19] MEDS ORDERED: ACETAMINOPHEN TAB 500 MG TAB PO STA (08:04)
[2017-03-19] MEDS ORDERED: IBUPROFEN 600 MG TAB PO STA (08:04)
--- NOTE | 2017-03-19 08:08 | ED ---
General Adult HPI - General Chief complaint: Arrhythmia/Palpitations Stated complaint: Low Pulse Time Seen by Provider: 03/19/17 07:30 Source: patient, RN notes reviewed Mode of arrival: ambulatory Limitations: no limitations - History of Present Illness Initial comments: This is a 61-year-old female who presents to the emergency department complaining of a three-day history of fever. Patient went to dialysis this morning and they noted the fever as well as the fact that she had a heart rate of 40. Patient states she's had a little bit of a cough but she has had some vomiting and diarrhea over the last 3 days. Patient denies any abdominal pain. Patient denies any dysuria or hematuria or urinary frequency. Patient denies any chest pain palpitations difficulty breathing or shortness of breath. Patient denies headache patient denies numbness weakness. Patient denies being lightheaded or dizzy. - Related Data Home Medications Medication Instructions Recorded Confirmed Allopurinol [Zyloprim] 100 mg PO DAILY 11/15/14 03/19/17 Gabapentin [Neurontin] 100 mg PO BID 11/15/14 03/19/17 Omeprazole [PriLOSEC] 20 mg PO BID 01/31/15 03/19/17 Insulin Glargine [Lantus] 35 unit SQ HS 03/03/15 03/19/17 Loperamide [Imodium] 2 mg PO QID PRN 03/03/15 03/19/17 Mv-Min/Vit C/Glu/Karla HCl/Hc124 1 tab PO QID PRN 03/03/15 03/19/17 [Airborne Tablet Chewable] Sertraline [Zoloft] 50 mg PO DAILY 03/03/15 03/19/17 Clopidogrel [Plavix] 75 mg PO DAILY 04/23/15 03/19/17 Aspirin [Adult Low Dose Aspirin EC] 81 mg PO DAILY 05/06/16 03/19/17 Cinacalcet HCl [Sensipar] 30 mg PO HS 05/06/16 03/19/17 Insulin Aspart [NovoLOG] See Protocol SQ AC-TID 05/06/16 03/19/17 Atorvastatin [Lipitor] 40 mg PO HS 03/19/17 03/19/17 Carvedilol [Coreg] 3.125 mg PO BID 03/19/17 03/19/17 Midodrine [ProAmatine] 10 mg PO MOWEFR 03/19/17 03/19/17 Previous Rx's Medication Instructions Recorded Nitroglycerin Sl Tabs [Nitrostat] 0.4 mg SUBLINGUAL Q5M PRN #25 tab 11/19/14 Montelukast [Singulair] 10 mg PO HS #30 tab 06/30/16 Allergies Allergy/AdvReac Type Severity Reaction Status Date / Time adhesive Allergy Rash/Hives Verified 03/19/17 09:15 cephalexin monohydrate Allergy Rash/Hives Verified 03/19/17 09:15 [From Keflex] hydromorphone HCl Allergy Hallucinati Verified 03/19/17 09:15 [From Dilaudid] ons iodine Allergy Rash/Hives Verified 03/19/17 09:15 Penicillins Allergy Unknown Verified 03/19/17 09:15 Childhood povidone-iodine Allergy Unknown Verified 03/19/17 09:15 [From Betadine] shellfish derived [Shrimp] Allergy Rash/Hives Verified 03/19/17 09:15 soap [From Betadine] Allergy Unknown Verified 03/19/17 09:15 fentanyl AdvReac Unknown Verified 03/19/17 09:15 hydrocodone bitartrate AdvReac Itching Verified 03/19/17 09:15 [From Vicodin] midazolam [From Versed] AdvReac Unknown Verified 03/19/17 09:15 morphine AdvReac Hallucinati Verified 03/19/17 09:15 ons tramadol AdvReac Itching Verified 03/19/17 09:15 artifical sweetener AdvReac Unknown Uncoded 03/19/17 07:32 Review of Systems ROS Statement: Those systems with pertinent positive or pertinent negative responses have been documented in the HPI. ROS Other: All systems not noted in ROS Statement are negative. Past Medical History Past Medical History: Coronary Artery Disease (CAD), Diabetes Mellitus, Hyperlipidemia, Hypertension, Myocardial Infarction (MD), Renal Disease, Thyroid Disorder Additional Past Medical History / Comment(s): MIs, IDDM type II, GOUT R foot, diabetic neuropathy bilateral feet and now "all over", chronic ANEMIA, MITRAL and TRICUSID REGURGITATION, esrd gets hemodialysis [id number]., UTIs, bronchitis, hypoparathyroid, wears O2 at 2L/NC during dialysis only, hemorrhoids -have caused anemia in past, hyperkalemia Last Myocardial Infarction Date:: 05/08/16 History of Any Multi-Drug Resistant Organisms: None Reported Past Surgical History: Coronary Bypass/CABG, Heart Catheterization, Heart Catheterization With Stent Additional Past Surgical History / Comment(s): 07/05/16 cardiac cath-tx medially, PREVIOUS STENTS TO CIRC AND LAD-HAD REOCCLUSION THEN HAD 3 VESSEL CABG, PTCAs, AV fistula R arm, colonoscopy-normal, bilateral cataract removal with lens implants, bilateral eye laser sx to remove fluid. Past Anesthesia/Blood Transfusion Reactions: Previous Problems w/ Anesthesia Additional Past Anesthesia/Blood Transfusion Reaction / Comment(s): POST OP DELIRIUM/AGITATION/PSYCHOSIS-RESOLVED. Pt states she had a problem with hypotension last time she received versed. Date of Last Stent Placement:: 05/08/16 Past Psychological History: Depression Smoking Status: Never smoker Past Alcohol Use History: None Reported Past Drug Use History: None Reported - Past Family History Mother Family Medical History: Diabetes Mellitus, Myocardial Infarction (MD), Thyroid Disorder Additional Family Medical History / Comment(s): CABG, gout, hypothyroid. Mother is 80yrs old. Sister(s) Family Medical History: Diabetes Mellitus, Thyroid Disorder Father Family Medical History: Diabetes Mellitus, Myocardial Infarction (MD) Additional Family Medical History / Comment(s): Father at the age of 67yrs of a MD General Exam - General Exam Comments Initial Comments: GENERAL: Patient is well-developed and well-nourished. Patient is nontoxic and well- hydrated and is in no acute distress. ENT: Neck is soft and supple. No significant lymphadenopathy is noted. Oropharynx is clear. Moist mucous membranes. Neck has full range of motion without eliciting any pain. EYES: The sclera were anicteric and conjunctiva were pink and moist. Extraocular movements were intact and pupils were equal round and reactive to light. Eyelids were unremarkable. PULMONARY: Unlabored respirations. Good breath sounds bilaterally. No audible rales rhonchi or wheezing was noted. CARDIOVASCULAR: There is a regular rate and rhythm without any murmurs gallops or rubs. ABDOMEN: Soft and nontender with normal bowel sounds. SKIN: Skin is clear with no lesions or rashes and otherwise unremarkable. NEUROLOGIC: Patient is alert and oriented x3. Cranial nerves II through XII are grossly intact. Motor and sensory are also intact. Normal speech, volume and content. Symmetrical smile. MUSCULOSKELETAL: Normal extremities with adequate strength and full range of motion. LYMPHATICS: No significant lymphadenopathy is noted PSYCHIATRIC: Normal psychiatric evaluation. Normal interpersonal interactions appears functionally intact in deals appropriately with others. No signs of depression. No signs of anxiety. Limitations: no limitations Course Vital Signs 03/19/17 03/19/17 07:28 09:05 Temperature 101.1 F H Pulse Rate 91 87 Respiratory 18 20 Rate Blood Pressure 121/51 O2 Sat by Pulse 95 97 Oximetry Medical Decision Making - Medical Decision Making EKG shows sinus rhythm with occasional PVC at a rate of 91 bpm WV interval 240 Fortress 106 QT interval 352 QTC is 432. Patient's EKG is compared to an old EKG no acute abnormalities are noted. Chest x-ray shows no acute abnormality. - Lab Data Result diagrams: 03/19/17 08:32 03/19/17 08:32 Lab Results 03/19/17 03/19/17 03/19/17 Range/Units 08:32 08:32 08:32 WBC 6.6 (3.8-10.6) k/uL RBC 3.67 L (3.80-5.40) m/uL Hgb 10.6 L (11.4-16.0) gm/dL Hct 34.1 (34.0-46.0) % MCV 92.9 (80.0-100.0) fL MCH 28.7 (25.0-35.0) pg MCHC 30.9 L (31.0-37.0) g/dL RDW 19.4 H (11.5-15.5) % Plt Count 136 L (150-450) k/uL Neutrophils % 86 % Lymphocytes % 9 % Monocytes % 4 % Eosinophils % 1 % Basophils % 1 % Neutrophils # 5.7 (1.3-7.7) k/uL Lymphocytes # 0.6 L (1.0-4.8) k/uL Monocytes # 0.2 (0-1.0) k/uL Eosinophils # 0.0 (0-0.7) k/uL Basophils # 0.0 (0-0.2) k/uL Hypochromasia Moderate Anisocytosis Slight Macrocytosis Slight Sodium 139 (137-145) mmol/L Potassium 4.6 (3.5-5.1) mmol/L Chloride 109 H (98-107) mmol/L Carbon Dioxide 12 L (22-30) mmol/L Anion Gap 18 mmol/L BUN 82 H* (7-17) mg/dL Creatinine 9.86 H* (0.52-1.04) mg/dL Est GFR (MDRD) Af Amer 5 (>60 ml/min/1.73 sqM) Est GFR (MDRD) Non-Af 4 (>60 ml/min/1.73 sqM) Glucose 85 (74-99) mg/dL Calcium 8.3 L (8.4-10.2) mg/dL Total Bilirubin 0.4 (0.2-1.3) mg/dL AST 18 (14-36) U/L ALT 22 (9-52) U/L Alkaline Phosphatase 77 (38-126) U/L Total Creatine Kinase 53 (30-135) U/L CK-MB (CK-2) 1.7 (0.0-2.4) ng/mL CK-MB (CK-2) Rel Index 3.2 Troponin I 0.184 H* (0.000-0.034) ng/mL Total Protein 5.7 L (6.3-8.2) g/dL Albumin 3.1 L (3.5-5.0) g/dL Influenza Type A RNA (Not Detectd) Influenza Type B (PCR) (Not Detectd) 03/19/17 Range/Units 08:32 WBC (3.8-10.6) k/uL RBC (3.80-5.40) m/uL Hgb (11.4-16.0) gm/dL Hct (34.0-46.0) % MCV (80.0-100.0) fL MCH (25.0-35.0) pg MCHC (31.0-37.0) g/dL RDW (11.5-15.5) % Plt Count (150-450) k/uL Neutrophils % % Lymphocytes % % Monocytes % % Eosinophils % % Basophils % % Neutrophils # (1.3-7.7) k/uL Lymphocytes # (1.0-4.8) k/uL Monocytes # (0-1.0) k/uL Eosinophils # (0-0.7) k/uL Basophils # (0-0.2) k/uL Hypochromasia Anisocytosis Macrocytosis Sodium (137-145) mmol/L Potassium (3.5-5.1) mmol/L Chloride (98-107) mmol/L Carbon Dioxide (22-30) mmol/L Anion Gap mmol/L BUN (7-17) mg/dL Creatinine (0.52-1.04) mg/dL Est GFR (MDRD) Af Amer (>60 ml/min/1.73 sqM) Est GFR (MDRD) Non-Af (>60 ml/min/1.73 sqM) Glucose (74-99) mg/dL Calcium (8.4-10.2) mg/dL Total Bilirubin (0.2-1.3) mg/dL AST (14-36) U/L ALT (9-52) U/L Alkaline Phosphatase (38-126) U/L Total Creatine Kinase (30-135) U/L CK-MB (CK-2) (0.0-2.4) ng/mL CK-MB (CK-2) Rel Index Troponin I (0.000-0.034) ng/mL Total Protein (6.3-8.2) g/dL Albumin (3.5-5.0) g/dL Influenza Type A RNA Not Detected (Not Detectd) Influenza Type B (PCR) Not Detected (Not Detectd) Disposition Clinical Impression: Pneumonia Disposition: ADMITTED IP TO THIS [facility] Referrals: Kyle Campos MD [Primary Care Provider] - 1-2 days Time of Disposition: 11:07
[2017-03-19] MEDS: SODIUM CHLORIDE 0.9% 500 ML IV SCH ×3 (08:23→10:34)
[2017-03-19 08:47] LABS: Anisocytosis Slight; Basophils % (A) 1 %; CH 28.3; CHCM 30.6; Eosinophils % (A) 1 %; HCT 34.1 % (34.0-46.0); HDW 2.65; HGB 10.6 gm/dL (11.4-16.0); Hypochromasia Moderate; Luc # (Auto) 0.08; Luc % (Auto) 1; Lymphocytes # (A) 0.6 k/uL (1.0-4.8); Lymphocytes % (A) 9 %; MCH 28.7 pg (25.0-35.0); MCHC 30.9 g/dL (31.0-37.0); MCV 92.9 fL (80.0-100.0); Macrocytosis Slight; Mean Platelet Volume 8.2; Monocytes # (A) 0.2 k/uL (0-1.0); Monocytes % (A) 4 %; Neutrophils # (A) 5.7 k/uL (1.3-7.7); Neutrophils % (A) 86 %; RBC 3.67 m/uL (3.80-5.40); RDW 19.4 % (11.5-15.5); WBC 6.6 k/uL (3.8-10.6); WBC (Perox) 6.98
[2017-03-19 09:03] LABS: Calcium 8.3 mg/dL (8.4-10.2); Potassium 4.6 mmol/L (3.5-5.1); Total Bilirubin 0.4 mg/dL (0.2-1.3); Total Protein 5.7 g/dL (6.3-8.2)
[2017-03-19 09:11] LABS: Creatine Kinase MB 1.7 ng/mL (0.0-2.4)
[2017-03-19 10:05] LABS: Troponin I 0.184 ng/mL (0.000-0.034)
[2017-03-19] MEDS ORDERED: LEVOFLOXACIN 750 MG TAB PO STA (10:21)
--- NOTE | 2017-03-19 10:54 | XR ---
EXAMINATION TYPE: XR chest 2V DATE OF EXAM: 03/19/2017 COMPARISON: Prior chest x-ray 11/27/2016 HISTORY: Fever and bradycardia TECHNIQUE: Frontal and lateral views of the chest are obtained. FINDINGS: Patient is post median sternotomy. The heart is enlarged. There are overlying cardiac lead s. Patchy basilar density is present on the right. No pneumothorax or evident effusion. IMPRESSION: Correlate for right lower lobe pneumonia. Follow-up is recommended.
[2017-03-19] MEDS ORDERED: PNEUMONIA PROTOCOL UTILIZED 1 EACH MISC PO PRN (11:07)
[2017-03-19 11:49] LABS: Glucose,Whole Blood 103 mg/dL (75-99)
[2017-03-19] MEDS ORDERED: NITROGLYCERIN SL TABS 0.4 MG TAB SUBLINGUAL PRN (12:50)
[2017-03-19] MEDS ORDERED: [UNRECOGNIZED DRUG - OTHER] PO PRN (12:50)
[2017-03-19 13:16] LABS: INR 1.1 (<1.2); Partial Thromboplastin Time 26.1 sec (22.0-30.0); Prothrombin Time 10.9 sec (9.0-12.0)
[2017-03-19] MEDS: MIDODRINE 5 MG TAB PO SCH (13:28)
--- NOTE | 2017-03-19 13:39 | P.HPIM ---
History of Present Illness H&P Date: 03/19/17 Chief Complaint: not feeling well this is a 61-year-old female with a known past medical history of end-stage renal disease requiring hemodialysis on Sunday. She also has a known history of coronary artery disease with previous myocardial infarction and coronary artery bypass grafting, diabetes mellitus, hyperlipidemia and hypothyroidism. Patient reports she has not been feeling well for the past 5 days. She's been having productive cough with yellowish to greenish sputum. She's been having fevers with chills and sweats. Also, she missed dialysis on Sunday because she was not feeling well. Sunday she started having vomiting and diarrhea. Last episode of vomiting was yesterday and diarrhea was this afternoon. Patient tried to go to her hemodialysis appointment however it was stopped after only 20 minutes of dialysis. Patient had bradycardia with a heart rate into the 40s. She was recommended to come to the emergency room for further evaluation and treatment. She was found to have a temp of 101.1. Chest x-ray reports correlate for a right lower lobe pneumonia. Patient was started on IV Levaquin in the emergency room. Her influenza screening is negative. EKG shows a sinus rhythm with occasional PVCs and heart rate in the 90s. Cardiology has been consulted for this episode of bradycardia as well as an elevated troponin of 0.184. Patent patient denies any chest pain or shortness of breath. Patient was hospitalized in November with bradycardia and hypotension during dialysis and at that time dialysis settings were adjusted and patient had no further episodes of hypotension or bradycardia. Patient reports that her dialysis has been using these adjusted settings but today she did have another episode of bradycardia. Cardiology and nephrology have been consulted. Patient admitted to the telemetry floor. Patient also noting decrease in appetite since she's been sick. Review of Systems please refer to HPI otherwise unremarkable Past Medical History Past Medical History: Coronary Artery Disease (CAD), Diabetes Mellitus, Hyperlipidemia, Hypertension, Myocardial Infarction (MD), Renal Disease, Thyroid Disorder Additional Past Medical History / Comment(s): MIs, IDDM type II, GOUT R foot, diabetic neuropathy bilateral feet and now "all over", chronic ANEMIA, MITRAL and TRICUSID REGURGITATION, esrd gets hemodialysis [id number]., UTIs, bronchitis, hypoparathyroid, wears O2 at 2L/NC during dialysis only-has had bradycardia and hypotension during dialysis, hemorrhoids-have caused anemia in past, hyperkalemia Last Myocardial Infarction Date:: 07/06/16 History of Any Multi-Drug Resistant Organisms: None Reported Past Surgical History: Coronary Bypass/CABG, Heart Catheterization, Heart Catheterization With Stent Additional Past Surgical History / Comment(s): 07/05/16 cardiac cath-tx medially, PCI/STENTS, 3 VESSEL CABG, AV fistula R upper arm, colonoscopy- normal, bilateral cataract removal with lens implants, bilateral eye laser sx to remove fluid. Past Anesthesia/Blood Transfusion Reactions: Previous Problems w/ Anesthesia Additional Past Anesthesia/Blood Transfusion Reaction / Comment(s): POST OP DELIRIUM/AGITATION/PSYCHOSIS-RESOLVED. Pt states she had a problem with hypotension last time she received versed. Date of Last Stent Placement:: 05/08/16 Smoking Status: Never smoker - Past Family History Mother Family Medical History: Diabetes Mellitus, Myocardial Infarction (MD), Thyroid Disorder Additional Family Medical History / Comment(s): CABG, gout, hypothyroid. Mother is 80yrs old. Sister(s) Family Medical History: Diabetes Mellitus, Thyroid Disorder Father Family Medical History: Diabetes Mellitus, Myocardial Infarction (MD) Additional Family Medical History / Comment(s): Father at the age of 67yrs of a MD Medications and Allergies Home Medications Medication Instructions Recorded Confirmed Type Allopurinol [Zyloprim] 100 mg PO DAILY 11/15/14 03/19/17 History Gabapentin [Neurontin] 100 mg PO BID 11/15/14 03/19/17 History Nitroglycerin Sl Tabs [Nitrostat] 0.4 mg SUBLINGUAL Q5M PRN #25 tab 11/19/14 Rx Omeprazole [PriLOSEC] 20 mg PO BID 01/31/15 03/19/17 History Insulin Glargine [Lantus] 35 unit SQ HS 03/03/15 03/19/17 History Loperamide [Imodium] 2 mg PO QID PRN 03/03/15 03/19/17 History Mv-Min/Vit C/Glu/Karla HCl/Hc124 1 tab PO QID PRN 03/03/15 03/19/17 History [Airborne Tablet Chewable] Sertraline [Zoloft] 50 mg PO DAILY 03/03/15 03/19/17 History Clopidogrel [Plavix] 75 mg PO DAILY 04/23/15 03/19/17 History Aspirin [Adult Low Dose Aspirin EC] 81 mg PO DAILY 05/06/16 03/19/17 History Cinacalcet HCl [Sensipar] 30 mg PO HS 05/06/16 03/19/17 History Insulin Aspart [NovoLOG] See Protocol SQ AC-TID 05/06/16 03/19/17 History Montelukast [Singulair] 10 mg PO HS #30 tab 06/30/16 03/19/17 Rx Atorvastatin [Lipitor] 40 mg PO HS 03/19/17 03/19/17 History Carvedilol [Coreg] 3.125 mg PO BID 03/19/17 03/19/17 History Midodrine [ProAmatine] 10 mg PO MOWEFR 03/19/17 03/19/17 History Allergies Allergy/AdvReac Type Severity Reaction Status Date / Time adhesive Allergy Rash/Hives Verified 03/19/17 09:15 cephalexin monohydrate Allergy Rash/Hives Verified 03/19/17 09:15 [From Keflex] hydromorphone HCl Allergy Hallucinati Verified 03/19/17 09:15 [From Dilaudid] ons iodine Allergy Rash/Hives Verified 03/19/17 09:15 Penicillins Allergy Unknown Verified 03/19/17 09:15 Childhood povidone-iodine Allergy Unknown Verified 03/19/17 09:15 [From Betadine] shellfish derived [Shrimp] Allergy Rash/Hives Verified 03/19/17 09:15 soap [From Betadine] Allergy Unknown Verified 03/19/17 09:15 fentanyl AdvReac Unknown Verified 03/19/17 09:15 hydrocodone bitartrate AdvReac Itching Verified 03/19/17 09:15 [From Vicodin] midazolam [From Versed] AdvReac Unknown Verified 03/19/17 09:15 morphine AdvReac Hallucinati Verified 03/19/17 09:15 ons tramadol AdvReac Itching Verified 03/19/17 09:15 artifical sweetener AdvReac Unknown Uncoded 03/19/17 07:32 Physical Exam Vitals: Vital Signs Temp Pulse Pulse Resp BP BP Pulse Ox 03/19/17 12:00 98.3 F 75 18 99/54 96 03/19/17 11:20 99.4 F 76 20 103/52 95 03/19/17 11:08 96 03/19/17 10:59 76 20 103/52 95 03/19/17 10:40 78 20 100/53 98 03/19/17 09:05 87 20 97 03/19/17 07:28 101.1 F H 91 18 121/51 95 Intake and Output 03/18/17 03/19/17 03/19/17 22:59 06:59 14:59 Intake Total 500 Balance 500 Intake: Intake, IV Titration 500 Amount Sodium Chloride 0.9% 500 500 ml @ 1000 mls/hr IV Q35M MUKUND Rx#:[id number] Oral 0 Other: Voiding Method Toilet # Voids 0 Weight 84.6 kg Patient Weight 03/20/17 06:59 Weight 84.6 kg Head normocephalic Neck supple Lungs coarse breath sounds with crackles noted bilaterally Heart regular rate and rhythm S1-S2, no rub or gallop Abdomen is soft nontender nondistended positive bowel sounds no hepatosplenomegaly Extremities no edema Neuro alert and orientated to 3 Results CBC & Chem 7: 03/19/17 08:32 03/19/17 08:32 Labs: Abnormal Lab Results - Last 24 Hours (Table) 03/19/17 03/19/17 03/19/17 Range/Units 08:32 08:32 08:32 RBC 3.67 L (3.80-5.40) m/uL Hgb 10.6 L (11.4-16.0) gm/dL MCHC 30.9 L (31.0-37.0) g/dL RDW 19.4 H (11.5-15.5) % Plt Count 136 L (150-450) k/uL Lymphocytes # 0.6 L (1.0-4.8) k/uL Chloride 109 H (98-107) mmol/L Carbon Dioxide 12 L (22-30) mmol/L BUN 82 H* (7-17) mg/dL Creatinine 9.86 H* (0.52-1.04) mg/dL POC Glucose (mg/dL) (75-99) mg/dL Calcium 8.3 L (8.4-10.2) mg/dL Troponin I 0.184 H* (0.000-0.034) ng/mL Total Protein 5.7 L (6.3-8.2) g/dL Albumin 3.1 L (3.5-5.0) g/dL 03/19/17 Range/Units 11:45 RBC (3.80-5.40) m/uL Hgb (11.4-16.0) gm/dL MCHC (31.0-37.0) g/dL RDW (11.5-15.5) % Plt Count (150-450) k/uL Lymphocytes # (1.0-4.8) k/uL Chloride (98-107) mmol/L Carbon Dioxide (22-30) mmol/L BUN (7-17) mg/dL Creatinine (0.52-1.04) mg/dL POC Glucose (mg/dL) 103 H (75-99) mg/dL Calcium (8.4-10.2) mg/dL Troponin I (0.000-0.034) ng/mL Total Protein (6.3-8.2) g/dL Albumin (3.5-5.0) g/dL Thrombosis Risk Factor Assmnt - Choose All That Apply Any of the Below Risk Factors Present?: Yes Each Factor Represents 1 point: Age 41-60 years, Obesity (BMI >25), Serious lung disease incl. pneumonia (< 1month) Other congenital or acquired thrombophilia - If yes, enter type in comment: No Thrombosis Risk Factor Assessment Total Risk Factor Score: 3 Thrombosis Risk Factor Assessment Level: Moderate Risk Assessment and Plan Assessment: 1. Possible pneumonia: Patient has had fever and productive cough. Chest x- ray reports to correlate for right lower lobe pneumonia. Patient has been started on Levaquin 750 mg IV daily. Influenza screen negative. Check sputum culture. Check blood cultures 2. Vomiting with diarrhea: Check stool for C. diff. 3. Bradycardia during dialysis: Consult cardiology. Continue with telemetry monitoring. Heart rate is been stable. Place parameters around Correctol hold for heart rate less than 55. Will await further recommendations per cardiology 4. Elevated troponin likely a non-thrombotic troponin leak due to her renal failure. Cardiology has been consulted. Patient denies chest pain. 5. History of coronary artery disease and previous coronary bypass grafting and cardiac stents 6. History of myocardial infarction 7. End-stage renal disease with hemodialysis on Sunday. Patient missed Sunday's dialysis appointment 8. chronic anemia secondary to chronic kidney disease 9. diabetes mellitus type 2: resume Lantus and add humalog sliding scale coverage 10. Thrombocytopenia: Platelets 136. Repeat labs in a.m. GI prophylaxis Protonix and DVT prophylaxis SCDs. Hold off on anticoagulation for DVT prophylaxis due to the thrombocytopenia Time with Patient: Greater than 30 (Greater than 50% of the total time spent in counseling and coordination of care.I performed an examination of the patient and discussed their management with the physician Integration Developer. I have reviewed the Physician Integration Developer's notes and agree with the documented findings and plan of care)
[2017-03-19 16:29] LABS: Glucose,Whole Blood 89 mg/dL (75-99)
[2017-03-19] MEDS: INSULIN LISPRO (humaLOG) 300 UNIT/3 ML VIAL SQ SCH ×2 (16:33→21:35)
[2017-03-19] MEDS: CARVEDILOL 3.125 MG TAB PO SCH (16:36)
[2017-03-19] MEDS: PANTOPRAZOLE 40 MG TABLET PO SCH (16:38)
[2017-03-19] MEDS: MONTELUKAST 10 MG TAB PO SCH (20:37)
[2017-03-19] MEDS: CINACALCET 30 MG TAB PO SCH (20:37)
[2017-03-19] MEDS: GABAPENTIN 100 MG CAP PO SCH (20:37)
[2017-03-19] MEDS: ATORVASTATIN 40 MG TAB PO SCH (20:37)
[2017-03-19 20:59] LABS: Glucose,Whole Blood 148 mg/dL (75-99)
[2017-03-19] MEDS: INSULIN GLARGINE 100 UNIT/ML 10 ML VIAL SQ SCH (21:09)
[2017-03-19] MEDS: ONDANSETRON 4 MG/2 ML VIAL IVP PRN (23:06)
[2017-03-19] MEDS: ACETAMINOPHEN TAB 500 MG TAB PO PRN (23:08)
[2017-03-20 06:08] LABS: Glucose,Whole Blood 102 mg/dL (75-99)
[2017-03-20] MEDS: INSULIN LISPRO (humaLOG) 300 UNIT/3 ML VIAL SQ SCH ×4 (06:12→21:15)
[2017-03-20 06:58] LABS: Anisocytosis Slight; Basophils % (A) 0 %; CHCM 30.6; Eosinophils % (A) 0 %; HCT 30.9 % (34.0-46.0); HDW 2.68; HGB 9.3 gm/dL (11.4-16.0); Hypochromasia Moderate; Luc # (Auto) 0.07; Luc % (Auto) 2; Lymphocytes # (A) 0.5 k/uL (1.0-4.8); Lymphocytes % (A) 12 %; MCH 28.5 pg (25.0-35.0); Macrocytosis Slight; Mean Platelet Volume 8.1; Monocytes # (A) 0.2 k/uL (0-1.0); Monocytes % (A) 4 %; Neutrophils # (A) 3.2 k/uL (1.3-7.7); Neutrophils % (A) 81 %; RBC 3.25 m/uL (3.80-5.40); RDW 17.8 % (11.5-15.5); WBC (Perox) 4.03
[2017-03-20] MEDS: PANTOPRAZOLE 40 MG TABLET PO SCH ×2 (07:07→18:14)
[2017-03-20 07:26] LABS: Total Bilirubin 0.4 mg/dL (0.2-1.3); Total Protein 5.9 g/dL (6.3-8.2)
[2017-03-20] MEDS: CARVEDILOL 3.125 MG TAB PO SCH ×2 (07:31→18:10)
--- NOTE | 2017-03-20 07:56 | XR ---
EXAMINATION TYPE: XR chest 2V DATE OF EXAM: 03/20/2017 COMPARISON: 03/19/2017 TECHNIQUE: PA and lateral views submitted. HISTORY: Fever FINDINGS: There is bilateral lower lobe consolidation and small right effusion. The heart is enlarged. Postsurg ical change noted. No pneumothorax. Hypertrophic changes of the spine. IMPRESSION: 1. Bilateral lower lobe infiltrate greater on the right with small right pleural effusion. Findings a re stable.
[2017-03-20] MEDS ORDERED: SODIUM POLYSTYRENE SULFONATE 15 GM/60 ML BOTTLE PO STA (08:59)
[2017-03-20] MEDS ORDERED: SERTRALINE 50 MG TAB PO SCH (09:00)
[2017-03-20] MEDS ORDERED: CLOPIDOGREL 75 MG TAB PO SCH (09:00)
[2017-03-20] MEDS ORDERED: LEVOFLOXACIN 750MG-D5W PMX 750 MG in DEXTROSE/WATER 1 150ML.BAG IVPB SCH (09:00)
[2017-03-20] MEDS: HEPARIN SODIUM,PORCINE 5,000 UNIT/ML 1 ML VIAL SQ SCH ×2 (09:34→21:02)
[2017-03-20] MEDS: GABAPENTIN 100 MG CAP PO SCH ×2 (09:34→20:57)
[2017-03-20] MEDS: ASPIRIN 81 MG PO SCH (09:34)
[2017-03-20] MEDS: ALLOPURINOL 100 MG TAB PO SCH (09:34)
--- NOTE | 2017-03-20 09:51 | P.PN ---
Subjective Progress Note Date: 03/20/17 this is a 61-year-old female with a known past medical history of end-stage renal disease requiring hemodialysis on Sunday. She also has a known history of coronary artery disease with previous myocardial infarction and coronary artery bypass grafting, diabetes mellitus, hyperlipidemia and hypothyroidism. Patient reports she has not been feeling well for the past 5 days. She's been having productive cough with yellowish to greenish sputum. She's been having fevers with chills and sweats. Also, she missed dialysis on Sunday because she was not feeling well. Sunday she started having vomiting and diarrhea. Last episode of vomiting was yesterday and diarrhea was this afternoon. Patient tried to go to her hemodialysis appointment however it was stopped after only 20 minutes of dialysis. Patient had bradycardia with a heart rate into the 40s. She was recommended to come to the emergency room for further evaluation and treatment. She was found to have a temp of 101.1. Chest x-ray reports correlate for a right lower lobe pneumonia. Patient was started on IV Levaquin in the emergency room. Her influenza screening is negative. EKG shows a sinus rhythm with occasional PVCs and heart rate in the 90s. Cardiology has been consulted for this episode of bradycardia as well as an elevated troponin of 0.184. Patent patient denies any chest pain or shortness of breath. Patient was hospitalized in November with bradycardia and hypotension during dialysis and at that time dialysis settings were adjusted and patient had no further episodes of hypotension or bradycardia. Patient reports that her dialysis has been using these adjusted settings but today she did have another episode of bradycardia. Cardiology and nephrology have been consulted. Patient admitted to the telemetry floor. Patient also noting decrease in appetite since she's been sick. 03/20/2017 patient reports that she is still not feeling well. Stool for C. diff was negative. She did have another episode of diarrhea this morning. No blood present. She is still coughing. Patient reports that tried to do dialysis yesterday but it was unsuccessful in the hospital. Awaiting nephrology recommendations regarding hemodialysis today. Potassium of 6. She is receiving Kayexalate. She had a low-grade temp last night of 100. Chest x- ray this morning showing bilateral lower infiltrates greater on the right. She is currently on Levaquin. Heart rate is been in the 80s to low 100s Objective - Vital Signs Vital signs: Vital Signs Temp 97.8 F 03/20/17 03:58 Pulse 81 03/20/17 04:00 Resp 18 03/20/17 04:00 BP 90/50 03/20/17 03:58 Pulse Ox 95 03/20/17 03:58 Intake & Output 03/19/17 03/20/17 03/20/17 18:59 06:59 18:59 Intake Total 740 250 120 Output Total 650 Balance 740 -400 120 Weight 84.6 kg 85.3 kg Intake: Intake, IV Titration 500 Amount Sodium Chloride 0.9% 500 500 ml @ 1000 mls/hr IV Q35M MUKUND Rx#:[id number] Oral 240 250 120 Output: Urine 650 Other: Voiding Method Toilet Toilet # Voids 0 1 - Exam Head normocephalic Neck supple Lungs improvement in lung sounds Heart regular rate and rhythm S1-S2, no rub or gallop Abdomen is soft nontender nondistended positive bowel sounds no hepatosplenomegaly Extremities no edema Neuro alert and orientated to 3 - Labs CBC & Chem 7: 03/20/17 06:44 03/20/17 06:44 Labs: Abnormal Lab Results - Last 24 Hours (Table) 03/19/17 03/19/17 03/19/17 Range/Units 08:32 11:45 20:47 RBC (3.80-5.40) m/uL Hgb (11.4-16.0) gm/dL Hct (34.0-46.0) % MCHC (31.0-37.0) g/dL RDW (11.5-15.5) % Plt Count (150-450) k/uL Lymphocytes # (1.0-4.8) k/uL Potassium (3.5-5.1) mmol/L Carbon Dioxide (22-30) mmol/L BUN (7-17) mg/dL Creatinine (0.52-1.04) mg/dL POC Glucose (mg/dL) 103 H 148 H (75-99) mg/dL Troponin I 0.184 H* (0.000-0.034) ng/mL Total Protein (6.3-8.2) g/dL Albumin (3.5-5.0) g/dL 03/20/17 03/20/17 03/20/17 Range/Units 06:04 06:44 06:44 RBC 3.25 L (3.80-5.40) m/uL Hgb 9.3 L (11.4-16.0) gm/dL Hct 30.9 L (34.0-46.0) % MCHC 30.0 L (31.0-37.0) g/dL RDW 17.8 H (11.5-15.5) % Plt Count 145 L (150-450) k/uL Lymphocytes # 0.5 L (1.0-4.8) k/uL Potassium 6.0 H (3.5-5.1) mmol/L Carbon Dioxide 18 L (22-30) mmol/L BUN 97 H* (7-17) mg/dL Creatinine 12.14 H* (0.52-1.04) mg/dL POC Glucose (mg/dL) 102 H (75-99) mg/dL Troponin I (0.000-0.034) ng/mL Total Protein 5.9 L (6.3-8.2) g/dL Albumin 3.4 L (3.5-5.0) g/dL Assessment and Plan Assessment: 1. Community-acquired pneumonia: Patient has had fever and productive cough. Chest x-ray reports to correlate for right lower lobe pneumonia. Patient has been started on Levaquin 750 mg IV daily. Influenza screen negative. Repeat chest x-ray showing bilateral lobe infiltrates greater on the right. Patient still having low-grade temps. Continue with the Levaquin. Await sputum culture and blood culture. 2. Vomiting with diarrhea: Stool for C. diff negative. Patient still having some diarrhea. No further episodes of vomiting 3. Bradycardia during dialysis: Consult cardiology. Continue with telemetry monitoring. Heart rate is been stable. Place parameters around Coreg hold for heart rate less than 55. Will await further recommendations per cardiology. 4. Elevated troponin likely a non-thrombotic troponin leak due to her renal failure. Cardiology has been consulted. Patient denies chest pain. 5. History of coronary artery disease and previous coronary bypass grafting and cardiac stents 6. History of myocardial infarction 7. End-stage renal disease with hemodialysis on Sunday. Patient missed Sunday's dialysis appointment 8. chronic anemia secondary to chronic kidney disease 9. diabetes mellitus type 2: resume Lantus and add humalog sliding scale coverage 10. Hyperkalemia: Potassium 6. Give 1 dose of Kayexalate 30 g. Likely secondary to patient not having complete dialysis yesterday GI prophylaxis Protonix and DVT prophylaxis subcu heparin I performed an examination of the patient and discussed their management with the physician Getter Operator. I have reviewed the Physician Getter Operator's notes and agree with the documented findings and plan of care
--- NOTE | 2017-03-20 10:13 | P.CRDCN ---
History of Present Illness Consult date: 03/20/17 Chief complaint: Dizziness and lightheadedness History of present illness: This is a 69-year-old female patient who sees in the office on regular basis with a past medical history significant for CAD and status post CABG as well as coronary stenting, diabetes, dyslipidemia, and end stage renal disease on hemodialysis was referred from the dialysis center to the hospital because of bradycardia. The patient had multiple hospital admission with bradycardia. This time she was in having dialysis and her heart rate dropped to the 40s. She felt dizzy and lightheaded. Beside that she felt mild chest discomfort. Overall she has not been feeding well for the last 4-5 days where she was experiencing cough associated with sputum as well as she was having fever. Currently the patient is receiving treatment for pneumonia in the hospital. I reviewed the telemetry wire the patient is in the hospital and she has been maintaining heart rate in the 70s as well as in the 80s. The blood pressure has been marginally low and its about 100 mm systolic but she is only on a small dose of Coreg and as a matter of fact she is on midodrine. The patient was admitted last time to the hospital in November 2016 with bradycardia as well. She underwent an echocardiogram at that point and that revealed mildly impaired LV function. Past Medical History Past Medical History: Coronary Artery Disease (CAD), Diabetes Mellitus, Hyperlipidemia, Hypertension, Myocardial Infarction ([place]), Renal Disease, Thyroid Disorder Additional Past Medical History / Comment(s): MIs, IDDM type II, GOUT R foot, diabetic neuropathy bilateral feet and now "all over", chronic ANEMIA, MITRAL and TRICUSID REGURGITATION, esrd gets hemodialysis [id number]., UTIs, bronchitis, hypoparathyroid, wears O2 at 2L/NC during dialysis only-has had bradycardia and hypotension during dialysis, hemorrhoids-have caused anemia in past, hyperkalemia Last Myocardial Infarction Date:: 07/06/16 History of Any Multi-Drug Resistant Organisms: None Reported Past Surgical History: Coronary Bypass/CABG, Heart Catheterization, Heart Catheterization With Stent Additional Past Surgical History / Comment(s): 07/05/16 cardiac cath-tx medially, PCI/STENTS, 3 VESSEL CABG, AV fistula R upper arm, colonoscopy- normal, bilateral cataract removal with lens implants, bilateral eye laser sx to remove fluid. Past Anesthesia/Blood Transfusion Reactions: Previous Problems w/ Anesthesia Additional Past Anesthesia/Blood Transfusion Reaction / Comment(s): POST OP DELIRIUM/AGITATION/PSYCHOSIS-RESOLVED. Pt states she had a problem with hypotension last time she received versed. Date of Last Stent Placement:: 05/08/16 Smoking Status: Never smoker - Past Family History Mother Family Medical History: Diabetes Mellitus, Myocardial Infarction ([place]), Thyroid Disorder Additional Family Medical History / Comment(s): CABG, gout, hypothyroid. Mother is 80yrs old. Sister(s) Family Medical History: Diabetes Mellitus, Thyroid Disorder Father Family Medical History: Diabetes Mellitus, Myocardial Infarction ([place]) Additional Family Medical History / Comment(s): Father at the age of 67yrs of a [place] Medications and Allergies Home Medications Medication Instructions Recorded Confirmed Type Allopurinol [Zyloprim] 100 mg PO DAILY 11/15/14 03/19/17 History Gabapentin [Neurontin] 100 mg PO BID 11/15/14 03/19/17 History Nitroglycerin Sl Tabs [Nitrostat] 0.4 mg SUBLINGUAL Q5M PRN #25 tab 11/19/14 Rx Omeprazole [PriLOSEC] 20 mg PO BID 01/31/15 03/19/17 History Insulin Glargine [Lantus] 35 unit SQ HS 03/03/15 03/19/17 History Loperamide [Imodium] 2 mg PO QID PRN 03/03/15 03/19/17 History Mv-Min/Vit C/Glu/Karla HCl/Hc124 1 tab PO QID PRN 03/03/15 03/19/17 History [Airborne Tablet Chewable] Sertraline [Zoloft] 50 mg PO DAILY 03/03/15 03/19/17 History Clopidogrel [Plavix] 75 mg PO DAILY 04/23/15 03/19/17 History Aspirin [Adult Low Dose Aspirin EC] 81 mg PO DAILY 05/06/16 03/19/17 History Cinacalcet HCl [Sensipar] 30 mg PO HS 05/06/16 03/19/17 History Insulin Aspart [NovoLOG] See Protocol SQ AC-TID 05/06/16 03/19/17 History Montelukast [Singulair] 10 mg PO HS #30 tab 06/30/16 03/19/17 Rx Atorvastatin [Lipitor] 40 mg PO HS 03/19/17 03/19/17 History Carvedilol [Coreg] 3.125 mg PO BID 03/19/17 03/19/17 History Midodrine [ProAmatine] 10 mg PO MOWEFR 03/19/17 03/19/17 History Allergies Allergy/AdvReac Type Severity Reaction Status Date / Time adhesive Allergy Rash/Hives Verified 03/19/17 09:15 cephalexin monohydrate Allergy Rash/Hives Verified 03/19/17 09:15 [From Keflex] hydromorphone HCl Allergy Hallucinati Verified 03/19/17 09:15 [From Dilaudid] ons iodine Allergy Rash/Hives Verified 03/19/17 09:15 Penicillins Allergy Unknown Verified 03/19/17 09:15 Childhood povidone-iodine Allergy Unknown Verified 03/19/17 09:15 [From Betadine] shellfish derived [Shrimp] Allergy Rash/Hives Verified 03/19/17 09:15 soap [From Betadine] Allergy Unknown Verified 03/19/17 09:15 fentanyl AdvReac Unknown Verified 03/19/17 09:15 hydrocodone bitartrate AdvReac Itching Verified 03/19/17 09:15 [From Vicodin] midazolam [From Versed] AdvReac Unknown Verified 03/19/17 09:15 morphine AdvReac Hallucinati Verified 03/19/17 09:15 ons tramadol AdvReac Itching Verified 03/19/17 09:15 artifical sweetener AdvReac Unknown Uncoded 03/19/17 07:32 Physical Exam Vitals: Vital Signs Temp Pulse Pulse Resp BP BP Pulse Ox 03/20/17 04:00 81 18 03/20/17 03:58 97.8 F 81 18 90/50 95 03/19/17 23:48 104 H 19 03/19/17 23:45 100.0 F H 104 H 19 139/67 97 03/19/17 20:00 98.8 F 88 20 116/56 94 L 03/19/17 16:00 98.6 F 75 18 101/59 95 03/19/17 12:00 98.3 F 75 18 99/54 96 03/19/17 11:20 99.4 F 76 20 103/52 95 03/19/17 11:08 96 03/19/17 10:59 76 20 103/52 95 03/19/17 10:40 78 20 100/53 98 Intake and Output 03/19/17 03/20/17 03/20/17 22:59 06:59 14:59 Intake Total 240 250 120 Output Total 650 Balance 240 -400 120 Intake: Oral 240 250 120 Output: Urine 650 Other: Voiding Method Toilet Toilet # Voids 1 1 Weight 85.3 kg - Constitutional General appearance: no acute distress - Respiratory Respiratory: bilateral: CTA - Cardiovascular Rhythm: regular Heart sounds: normal: S1, S2 Abnormal Heart Sounds: systolic murmur Results 03/20/17 06:44 03/20/17 06:44 Cardiac Enzymes 03/20/17 Range/Units 06:44 AST 21 (14-36) U/L Coagulation 03/19/17 Range/Units 12:36 PT 10.9 (9.0-12.0) sec APTT 26.1 (22.0-30.0) sec CBC 03/20/17 Range/Units 06:44 WBC 4.0 (3.8-10.6) k/uL RBC 3.25 L (3.80-5.40) m/uL Hgb 9.3 L (11.4-16.0) gm/dL Hct 30.9 L (34.0-46.0) % Plt Count 145 L (150-450) k/uL Comprehensive Metabolic Panel 03/20/17 Range/Units 06:44 Sodium 140 (137-145) mmol/L Potassium 6.0 H (3.5-5.1) mmol/L Chloride 102 (98-107) mmol/L Carbon Dioxide 18 L (22-30) mmol/L BUN 97 H* (7-17) mg/dL Creatinine 12.14 H* (0.52-1.04) mg/dL Glucose 81 (74-99) mg/dL Calcium 9.0 (8.4-10.2) mg/dL AST 21 (14-36) U/L ALT 22 (9-52) U/L Alkaline Phosphatase 80 (38-126) U/L Total Protein 5.9 L (6.3-8.2) g/dL Albumin 3.4 L (3.5-5.0) g/dL Current Medications Generic Name Dose Route Start Last Admin Trade Name Freq PRN Reason Stop Dose Admin Acetaminophen 500 mg 03/19/17 22:41 03/19/17 23:08 Tylenol Tab PO 500 mg Q6HR PRN Administration Fever and/ or Pain Allopurinol 100 mg 03/20/17 09:00 03/20/17 09:34 Zyloprim PO 100 mg DAILY MUKUND Administration Aspirin 81 mg 03/20/17 09:00 03/20/17 09:34 Aspirin PO 81 mg DAILY MUKUND Administration Atorvastatin Calcium 40 mg 03/19/17 21:00 03/19/17 20:37 Lipitor PO 40 mg HS MUKUND Administration Carvedilol 3.125 mg 03/19/17 17:30 03/20/17 07:31 Coreg PO Not Given BID-W/MEALS [facility] Cinacalcet 30 mg 03/19/17 21:00 03/19/17 20:37 Sensipar PO 30 mg HS MUKUND Administration Clopidogrel Bisulfate 75 mg 03/20/17 09:00 03/20/17 09:34 Plavix PO 75 mg DAILY [facility] Administration Gabapentin 100 mg 03/19/17 21:00 03/20/17 09:34 Neurontin PO 100 mg BID [facility] Administration Heparin Sodium (Porcine) 5,000 unit 03/20/17 09:00 03/20/17 09:34 Heparin SQ Not Given Q12HR [facility] Levofloxacin 750 mg/ IV 150 mls @ 100 mls/hr 03/20/17 09:00 Solution IVPB Q24HR [facility] Insulin Glargine 35 unit 03/19/17 21:00 03/19/17 21:09 Lantus SQ 35 unit HS [facility] Administration Insulin Human Lispro 0 unit 03/19/17 17:30 03/20/17 06:12 Humalog SQ Not Given ACHS [facility] Protocol Midodrine 10 mg 03/19/17 13:00 03/19/17 13:28 Proamatine PO Not Given [id number] [facility] Miscellaneous Information 1 each 03/19/17 11:07 Pneumonia Protocol Utilized PO ONCE PRN Per Protocol Montelukast Sodium 10 mg 03/19/17 21:00 03/19/17 20:37 Singulair PO 10 mg HS [facility] Administration Nitroglycerin 0.4 mg 03/19/17 12:50 Nitrostat SUBLINGUAL Q5M PRN Chest Pain Ondansetron HCl 4 mg 03/19/17 22:40 03/19/17 23:06 Zofran IVP 4 mg Q6HR PRN Administration Nausea And Vomiting Pantoprazole Sodium 40 mg 03/19/17 17:30 03/20/17 07:07 Protonix PO 40 mg AC-BID M[facility]UND Administration Sertraline HCl 50 mg 03/20/17 09:00 03/20/17 09:34 Zoloft PO 50 mg DAILY M[facility]UND Administration Intake and Output 03/19/17 03/20/17 03/20/17 22:59 06:59 14:59 Intake Total 240 250 120 Output Total 650 Balance 240 -400 120 Intake: Oral 240 250 120 Output: Urine 650 Other: Voiding Method Toilet Toilet # Voids 1 1 Weight 85.3 kg 03/20/17 06:44 03/20/17 06:44 Assessment and Plan Assessment: This is a pleasant 61-year-old female patient with a known CAD and prior revascularization as well as into stage renal disease on hemodialysis was admitted to the hospital with bradycardia associated with dizziness and lightheadedness. The patient has been maintaining normal heart rate during her hospitalization. She has marginally low blood pressure. From the cardiovascular standpoint of view, we'll continue monitor the heart rate for additional 24 hours. I would not recommend proceeding with any further cardiac workup at this point. Thank you for allowing us participate in her care
[2017-03-20 11:29] LABS: Glucose,Whole Blood 105 mg/dL (75-99)
[2017-03-20] MEDS: ACETAMINOPHEN TAB 500 MG TAB PO PRN ×2 (14:31→20:55)
[2017-03-20] MEDS ORDERED: GELATIN SPONGE,ABSORB (SMALL) 1 EACH SPONGE ONE (14:45)
[2017-03-20 16:40] LABS: Glucose,Whole Blood 66 mg/dL (75-99)
[2017-03-20 17:01] LABS: Glucose,Whole Blood 84 mg/dL (75-99)
[2017-03-20] MEDS: ONDANSETRON 4 MG/2 ML VIAL IVP PRN (18:16)
[2017-03-20] MEDS: CINACALCET 30 MG TAB PO SCH (20:57)
[2017-03-20] MEDS: ATORVASTATIN 40 MG TAB PO SCH (20:57)
[2017-03-20] MEDS: INSULIN GLARGINE 100 UNIT/ML 10 ML VIAL SQ SCH (21:02)
[2017-03-20 21:12] LABS: Glucose,Whole Blood 136 mg/dL (75-99)
[2017-03-20] MEDS: MONTELUKAST 10 MG TAB PO SCH (21:15)
--- NOTE | 2017-03-20 22:10 | PN ---
PROGRESS NOTE REASON FOR CONSULT: End-stage renal disease. HISTORY OF PRESENT ILLNESS: Patient is a 61-year-old female with end-stage renal disease, on hemodialysis on a Sunday, Sunday, Sunday schedule. She had been feeling sick as outpatient and had cough and missed her dialysis. The patient has not had good dialysis for about a week now. She had fever while on dialysis on Sunday. She felt poorly and was hypotensive and therefore sent to the ER. We tried dialysis yesterday as inpatient; however, her needles infiltrated and therefore patient will be dialyzed today. Currently, patient is being treated for pneumonia. No abdominal pain. No diarrhea. PAST MEDICAL HISTORY: Coronary artery disease, diabetes, hyperlipidemia, coronary artery disease, history of ID, hypothyroidism, anemia of chronic disease, CKD, mineral bone disorder, history of hemorrhoids, gastroesophageal reflux disease. PAST SURGICAL HISTORY: Coronary artery bypass surgery, cardiac catheterization, colonoscopy, AV fistula, cataract surgery, laser surgery to the eyes. SOCIAL HISTORY: Negative for smoking, drug abuse or alcohol abuse. MEDICATIONS: At home prior to admission include: 1. Zyloprim. 2. Neurontin. 3. Prilosec. 4. Imodium. 5. Zoloft. 6. Plavix. 7. Aspirin. 8. Sensipar. 9. Singulair. 10.Lipitor. 11.Coreg. 12.Midodrine. 13.Insulin. ALLERGIES: MULTIPLE, INCLUDING ADHESIVE TAPE, KEFLEX, DILAUDID, IODINE, PENICILLIN, BETADINE, SHRIMP, VICODIN, VERSED, MORPHINE, TRAMADOL, ARTIFICIAL SWEETENERS. EXAMINATION: Patient is currently comfortable, awake. She is not in any acute distress. Blood pressure is 97/44, heart rate 97 per minute. She has had a temp of 102 degrees Fahrenheit. HEART: S1, S2. LUNGS: Bilateral breath sounds are heard. ABDOMEN: Soft, nontender. Lower extremities show no significant edema. Chest x-ray on admission shows right lower lobe pneumonia. Other labs show potassium of 6.0, BUN 97, serum creatinine 12.1l. Hemoglobin 9.3 g/dL. ASSESSMENT: 1. End-stage renal disease, on hemodialysis on a Sunday, Sunday, Sunday schedule. Patient has not had a dialysis treatment for about a week now. 2. Fever secondary to pneumonia maintained on antibiotics. 3. Hyperkalemia. Expect improvement with hemodialysis today. 4. Anemia of chronic disease. 5. Chronic kidney disease mineral bone disorder. 6. Coronary artery disease with history of myocardial infarction, coronary artery bypass surgery and coronary stents. 7. Hypotension maintained on midodrine. Patient is on a very low dose of Coreg. I do not see any other antihypertensive medications. Will check random cortisol level. I am not sure what her ejection fraction is. Will try to check a previous echocardiogram. Thank you for this consultation. We will continue to follow the patient with you during her hospitalization. MMJENNIFER / SÁNCHEZN: [id number] /
[2017-03-21] MEDS: ACETAMINOPHEN TAB 500 MG TAB PO PRN ×2 (03:56→23:30)
[2017-03-21 06:16] LABS: Glucose,Whole Blood 116 mg/dL (75-99)
[2017-03-21] MEDS: INSULIN LISPRO (humaLOG) 300 UNIT/3 ML VIAL SQ SCH ×4 (06:17→21:48)
[2017-03-21 06:36] LABS: Anisocytosis Slight; Basophils % (A) 0 %; CH 28.5; CHCM 30.5; Eosinophils % (A) 0 %; HCT 27.7 % (34.0-46.0); HDW 2.72; HGB 8.6 gm/dL (11.4-16.0); Hypochromasia Moderate; Luc # (Auto) 0.09; Luc % (Auto) 3; Lymphocytes # (A) 0.3 k/uL (1.0-4.8); Lymphocytes % (A) 12 %; MCH 29.1 pg (25.0-35.0); MCHC 30.9 g/dL (31.0-37.0); MCV 94.1 fL (80.0-100.0); Macrocytosis Slight; Mean Platelet Volume 9.1; Monocytes # (A) 0.1 k/uL (0-1.0); Monocytes % (A) 4 %; Neutrophils # (A) 2.1 k/uL (1.3-7.7); Neutrophils % (A) 80 %; RBC 2.94 m/uL (3.80-5.40); RDW 19.4 % (11.5-15.5); WBC 2.6 k/uL (3.8-10.6); WBC (Perox) 2.89
[2017-03-21] MEDS: PANTOPRAZOLE 40 MG TABLET PO SCH ×2 (06:44→17:46)
[2017-03-21] MEDS: CARVEDILOL 3.125 MG TAB PO SCH ×2 (06:45→17:45)
[2017-03-21 06:55] LABS: Calcium 8.6 mg/dL (8.4-10.2); Potassium 3.9 mmol/L (3.5-5.1); Total Bilirubin 0.3 mg/dL (0.2-1.3); Total Protein 5.6 g/dL (6.3-8.2)
[2017-03-21] MEDS: ALLOPURINOL 100 MG TAB PO SCH (08:32)
[2017-03-21] MEDS: HEPARIN SODIUM,PORCINE 5,000 UNIT/ML 1 ML VIAL SQ SCH ×2 (08:33→21:56)
[2017-03-21] MEDS: ASPIRIN 81 MG PO SCH (08:33)
[2017-03-21] MEDS: GABAPENTIN 100 MG CAP PO SCH ×2 (08:33→21:58)
[2017-03-21] MEDS: MIDODRINE 5 MG TAB PO SCH (08:33)
[2017-03-21] MEDS: LEVOFLOXACIN 500 MG TAB PO SCH (08:36)
--- NOTE | 2017-03-21 11:45 | P.PN ---
Subjective Progress Note Date: 03/21/17 this is a 61-year-old female with a known past medical history of end-stage renal disease requiring hemodialysis on Sunday. She also has a known history of coronary artery disease with previous myocardial infarction and coronary artery bypass grafting, diabetes mellitus, hyperlipidemia and hypothyroidism. Patient reports she has not been feeling well for the past 5 days. She's been having productive cough with yellowish to greenish sputum. She's been having fevers with chills and sweats. Also, she missed dialysis on Sunday because she was not feeling well. Sunday she started having vomiting and diarrhea. Last episode of vomiting was yesterday and diarrhea was this afternoon. Patient tried to go to her hemodialysis appointment however it was stopped after only 20 minutes of dialysis. Patient had bradycardia with a heart rate into the 40s. She was recommended to come to the emergency room for further evaluation and treatment. She was found to have a temp of 101.1. Chest x-ray reports correlate for a right lower lobe pneumonia. Patient was started on IV Levaquin in the emergency room. Her influenza screening is negative. EKG shows a sinus rhythm with occasional PVCs and heart rate in the 90s. Cardiology has been consulted for this episode of bradycardia as well as an elevated troponin of 0.184. Patent patient denies any chest pain or shortness of breath. Patient was hospitalized in November with bradycardia and hypotension during dialysis and at that time dialysis settings were adjusted and patient had no further episodes of hypotension or bradycardia. Patient reports that her dialysis has been using these adjusted settings but today she did have another episode of bradycardia. Cardiology and nephrology have been consulted. Patient admitted to the telemetry floor. Patient also noting decrease in appetite since she's been sick. 03/20/2017 patient reports that she is still not feeling well. Stool for C. diff was negative. She did have another episode of diarrhea this morning. No blood present. She is still coughing. Patient reports that tried to do dialysis yesterday but it was unsuccessful in the hospital. Awaiting nephrology recommendations regarding hemodialysis today. Potassium of 6. She is receiving Kayexalate. She had a low-grade temp last night of 100. Chest x- ray this morning showing bilateral lower infiltrates greater on the right. She is currently on Levaquin. Heart rate is been in the 80s to low 100s On 03/21/2017 patient reports having difficulty through last night she was having elevated temperature and significant sweating she was complaining of cough, otherwise no complaints at this time. She denies any headache or dizziness no chest pain or shortness of breath no nausea or vomiting no diarrhea and no urinary symptoms, patient has end-stage renal disease maintained on hemodialysis Sunday and Sunday, she had evidence of pneumonia on presentation she is maintained on Levaquin. Objective - Vital Signs Vital signs: Vital Signs Temp 97.0 F L 03/21/17 08:00 Pulse 98 03/21/17 08:00 Resp 19 03/21/17 04:00 BP 86/51 03/21/17 08:00 Pulse Ox 93 L 03/21/17 08:00 Intake & Output 03/20/17 03/21/17 03/21/17 18:59 06:59 18:59 Intake Total 438 200 180 Output Total 0 Balance 438 200 180 Weight 85.3 kg 83.2 kg Intake: Oral 438 200 180 Output: Urine 0 Other: Voiding Method Toilet Toilet Toilet # Voids 0 - Exam In general patient is alert and oriented 3 in no apparent distress HEENT head normocephalic and atraumatic Neck is supple no JVD no goiter no lymphadenopathy Chest exam reveals a scattered crackles bilaterally no wheezing Cardiac exam reveals regular heart sounds no gallops no murmurs Abdomen is soft nontender no organomegaly with normal bowel sounds Extremity exam reveals no edema no cyanosis or clubbing - Labs CBC & Chem 7: 03/21/17 06:15 03/21/17 06:11 Labs: Abnormal Lab Results - Last 24 Hours (Table) 03/20/17 03/20/17 03/20/17 Range/Units 06:44 16:38 21:10 WBC (3.8-10.6) k/uL RBC (3.80-5.40) m/uL Hgb (11.4-16.0) gm/dL Hct (34.0-46.0) % MCHC (31.0-37.0) g/dL RDW (11.5-15.5) % Plt Count (150-450) k/uL Lymphocytes # (1.0-4.8) k/uL BUN (7-17) mg/dL Creatinine (0.52-1.04) mg/dL Glucose (74-99) mg/dL POC Glucose (mg/dL) 66 L 136 H (75-99) mg/dL Hemoglobin A1c 6.5 H (4.0-6.0) % Total Protein (6.3-8.2) g/dL Albumin (3.5-5.0) g/dL 03/21/17 03/21/17 03/21/17 Range/Units 06:06 06:11 06:15 WBC 2.6 L (3.8-10.6) k/uL RBC 2.94 L (3.80-5.40) m/uL Hgb 8.6 L (11.4-16.0) gm/dL Hct 27.7 L (34.0-46.0) % MCHC 30.9 L (31.0-37.0) g/dL RDW 19.4 H (11.5-15.5) % Plt Count 120 L (150-450) k/uL Lymphocytes # 0.3 L (1.0-4.8) k/uL BUN 45 H (7-17) mg/dL Creatinine 8.28 H* (0.52-1.04) mg/dL Glucose 117 H (74-99) mg/dL POC Glucose (mg/dL) 116 H (75-99) mg/dL Hemoglobin A1c (4.0-6.0) % Total Protein 5.6 L (6.3-8.2) g/dL Albumin 3.0 L (3.5-5.0) g/dL Microbiology - Last 24 Hours (Table) 03/19/17 09:20 Blood Culture - Preliminary Blood No Growth after 48 hours 03/19/17 09:11 Blood Culture - Preliminary Blood No Growth after 48 hours 03/19/17 09:07 Blood Culture - Preliminary Blood No Growth after 48 hours 03/19/17 20:00 Gram Stain - Preliminary Sputum 03/19/17 12:36 Blood Culture - Preliminary Blood No Growth after 24 hours Assessment and Plan Plan: 1. Community-acquired pneumonia: Patient has had fever and productive cough. Chest x-ray reports to correlate for right lower lobe pneumonia. Patient has been started on Levaquin. Influenza screen negative. Repeat chest x-ray showing bilateral lobe infiltrates greater on the right. Patient still having low-grade temps. Continue with the Levaquin. Await sputum culture and blood culture. 2. Vomiting with diarrhea: Stool for C. diff negative. Patient still having some diarrhea. No further episodes of vomiting 3. Bradycardia during dialysis: Consult cardiology. Continue with telemetry monitoring. Heart rate is been stable. Place parameters around Coreg hold for heart rate less than 55. Will await further recommendations per cardiology. 4. Elevated troponin likely a non-thrombotic troponin leak due to her renal failure. Cardiology has been consulted. Patient denies chest pain. 5. History of coronary artery disease and previous coronary bypass grafting and cardiac stents 6. History of myocardial infarction 7. End-stage renal disease with hemodialysis on Sunday. Patient missed Sunday's dialysis appointment 8. chronic anemia secondary to chronic kidney disease 9. diabetes mellitus type 2: resume Lantus and add humalog sliding scale coverage 10. Hyperkalemia: Potassium 6. Give 1 dose of Kayexalate 30 g. Likely secondary to patient not having complete dialysis yesterday 11. GI prophylaxis Protonix and DVT prophylaxis subcu heparin
[2017-03-21 13:34] LABS: Glucose,Whole Blood 153 mg/dL (75-99)
--- NOTE | 2017-03-21 15:05 | P.PN ---
Subjective Progress Note Date: 03/21/17 Principal diagnosis: Hypotension This is a 61-year-old female who follows with Dr. Rothman in the office. She has a past medical history significant for coronary artery disease with prior bypass surgery, diabetes, hyperlipidemia, end-stage renal disease, cardiology consultation was initially requested because of hypotension. According to the patient, she has not been feeling well at home for the past one week or more, she states that she's been having several diarrhea stools, she 's also had significant body aching, fever and chills. She missed a dialysis treatment, then when she ultimately went to dialysis, her blood pressure was quite low and she was referred to come to the hospital for further evaluation. Patient does have known history of hypotension especially during her dialysis treatments, and she has had hospital admissions for this in the past. She does take midodrine. EKG on arrival shows a normal sinus rhythm with PVCs, nonspecific ST-T wave changes. Chest x-ray shows a right lower lobe pneumonia. Temperature on arrival 101.1, patient has been running temperatures since her arrival here, 102, 101.4. Objective - Vital Signs Vital signs: Vital Signs Temp 97.0 F L 03/21/17 08:00 Pulse 98 03/21/17 08:00 Resp 19 03/21/17 04:00 BP 86/51 03/21/17 08:00 Pulse Ox 93 L 03/21/17 08:00 Intake & Output 03/20/17 03/21/17 03/21/17 18:59 06:59 18:59 Intake Total 438 200 180 Output Total 0 Balance 438 200 180 Weight 85.3 kg 83.2 kg Intake: Oral 438 200 180 Output: Urine 0 Other: Voiding Method Toilet Toilet Toilet # Voids 0 - Exam PHYSICAL EXAMINATION: HEENT: Head is atraumatic, normocephalic. Pupils equal, round. Neck is supple. There is no elevated jugular venous pressure. HEART EXAMINATION: Heart S1, S2 systolic murmur is heard. No murmur or gallop heard. CHEST EXAMINATION:[ Lungs reveal diminished air entry to bilateral bases with crackles to the bases. ABDOMEN: Soft, nontender. Bowel sounds are heard. No organomegaly noted. EXTREMITIES: 2+ peripheral pulses with evidence of peripheral edema and no calf tenderness noted]. NEUROLOGIC [patient is awake, alert and oriented -3.] . - Labs CBC & Chem 7: 03/21/17 06:15 03/21/17 06:11 Labs: Abnormal Lab Results - Last 24 Hours (Table) 03/20/17 03/20/17 03/20/17 Range/Units 06:44 16:38 21:10 WBC (3.8-10.6) k/uL RBC (3.80-5.40) m/uL Hgb (11.4-16.0) gm/dL Hct (34.0-46.0) % MCHC (31.0-37.0) g/dL RDW (11.5-15.5) % Plt Count (150-450) k/uL Lymphocytes # (1.0-4.8) k/uL BUN (7-17) mg/dL Creatinine (0.52-1.04) mg/dL Glucose (74-99) mg/dL POC Glucose (mg/dL) 66 L 136 H (75-99) mg/dL Hemoglobin A1c 6.5 H (4.0-6.0) % Total Protein (6.3-8.2) g/dL Albumin (3.5-5.0) g/dL 03/21/17 03/21/17 03/21/17 Range/Units 06:06 06:11 06:15 WBC 2.6 L (3.8-10.6) k/uL RBC 2.94 L (3.80-5.40) m/uL Hgb 8.6 L (11.4-16.0) gm/dL Hct 27.7 L (34.0-46.0) % MCHC 30.9 L (31.0-37.0) g/dL RDW 19.4 H (11.5-15.5) % Plt Count 120 L (150-450) k/uL Lymphocytes # 0.3 L (1.0-4.8) k/uL BUN 45 H (7-17) mg/dL Creatinine 8.28 H* (0.52-1.04) mg/dL Glucose 117 H (74-99) mg/dL POC Glucose (mg/dL) 116 H (75-99) mg/dL Hemoglobin A1c (4.0-6.0) % Total Protein 5.6 L (6.3-8.2) g/dL Albumin 3.0 L (3.5-5.0) g/dL 03/21/17 Range/Units 13:18 WBC (3.8-10.6) k/uL RBC (3.80-5.40) m/uL Hgb (11.4-16.0) gm/dL Hct (34.0-46.0) % MCHC (31.0-37.0) g/dL RDW (11.5-15.5) % Plt Count (150-450) k/uL Lymphocytes # (1.0-4.8) k/uL BUN (7-17) mg/dL Creatinine (0.52-1.04) mg/dL Glucose (74-99) mg/dL POC Glucose (mg/dL) 153 H (75-99) mg/dL Hemoglobin A1c (4.0-6.0) % Total Protein (6.3-8.2) g/dL Albumin (3.5-5.0) g/dL Microbiology - Last 24 Hours (Table) 03/19/17 09:20 Blood Culture - Preliminary Blood No Growth after 48 hours 03/19/17 09:11 Blood Culture - Preliminary Blood No Growth after 48 hours 03/19/17 09:07 Blood Culture - Preliminary Blood No Growth after 48 hours 03/19/17 20:00 Gram Stain - Preliminary Sputum 03/19/17 12:36 Blood Culture - Preliminary Blood No Growth after 24 hours Assessment and Plan Plan: Assessment and plan Assessment and plan #1 hypotension and bradycardia during dialysis . #2 known history of coronary artery disease with prior bypass surgery and PCI. Most recent cath performed in June of this year medical therapy advised #3 history of hypertension #4 hyperlipidemia # 5 diabetes #6 end-stage renal disease on hemodialysis #7 pneumonia possible sepsis. Plan Patient is maintaining normal sinus rhythm with a heart rate in the 80s. Blood pressure 90/60. From cardiology's perspective, we will continue patient on her current medications. She is currently undergoing dialysis today. Further recommendations to follow. DNP note has been reviewed, I agree with a documented findings and plan of care. Patient was seen and examined.
[2017-03-21 16:49] LABS: Glucose,Whole Blood 100 mg/dL (75-99)
[2017-03-21] MEDS: ONDANSETRON 4 MG/2 ML VIAL IVP PRN ×2 (17:47→23:31)
[2017-03-21 21:02] LABS: Glucose,Whole Blood 119 mg/dL (75-99)
[2017-03-21] MEDS: INSULIN GLARGINE 100 UNIT/ML 10 ML VIAL SQ SCH (21:52)
[2017-03-21] MEDS: ATORVASTATIN 40 MG TAB PO SCH (21:54)
[2017-03-21] MEDS: CLOPIDOGREL 75 MG TAB PO SCH (21:54)
[2017-03-21] MEDS: CINACALCET 30 MG TAB PO SCH (21:54)
[2017-03-21] MEDS: SERTRALINE 50 MG TAB PO SCH (21:58)
[2017-03-21] MEDS: MONTELUKAST 10 MG TAB PO SCH (21:58)
[2017-03-22 06:15] LABS: Anisocytosis Slight; Basophils % (A) 1 %; CH 28.1; CHCM 30.5; Eosinophils % (A) 1 %; HDW 2.86; HGB 9.8 gm/dL (11.4-16.0); Hypochromasia Moderate; Luc # (Auto) 0.06; Luc % (Auto) 2; Lymphocytes # (A) 0.5 k/uL (1.0-4.8); Lymphocytes % (A) 17 %; MCH 29.2 pg (25.0-35.0); MCHC 31.5 g/dL (31.0-37.0); MCV 92.6 fL (80.0-100.0); Mean Platelet Volume 7.9; Monocytes # (A) 0.1 k/uL (0-1.0); Monocytes % (A) 4 %; Neutrophils # (A) 2.4 k/uL (1.3-7.7); Neutrophils % (A) 76 %; RBC 3.35 m/uL (3.80-5.40); RDW 19.2 % (11.5-15.5); WBC 3.1 k/uL (3.8-10.6); WBC (Perox) 3.17
[2017-03-22] MEDS: ONDANSETRON 4 MG/2 ML VIAL IVP PRN (06:21)
[2017-03-22 06:28] LABS: Calcium 8.9 mg/dL (8.4-10.2); Potassium 3.9 mmol/L (3.5-5.1); Total Bilirubin 0.5 mg/dL (0.2-1.3)
[2017-03-22] MEDS: CARVEDILOL 3.125 MG TAB PO SCH ×2 (06:33→18:37)
[2017-03-22 06:36] LABS: Glucose,Whole Blood 152 mg/dL (75-99)
[2017-03-22] MEDS: PANTOPRAZOLE 40 MG TABLET PO SCH ×2 (06:36→18:37)
[2017-03-22] MEDS: INSULIN LISPRO (humaLOG) 300 UNIT/3 ML VIAL SQ SCH ×4 (06:36→20:57)
[2017-03-22] MEDS: ALLOPURINOL 100 MG TAB PO SCH (09:22)
[2017-03-22] MEDS: ASPIRIN 81 MG PO SCH (09:22)
[2017-03-22] MEDS: HEPARIN SODIUM,PORCINE 5,000 UNIT/ML 1 ML VIAL SQ SCH ×2 (09:22→20:56)
--- NOTE | 2017-03-22 09:47 | P.PN ---
Subjective Progress Note Date: 03/22/17 this is a 61-year-old female with a known past medical history of end-stage renal disease requiring hemodialysis on Sunday. She also has a known history of coronary artery disease with previous myocardial infarction and coronary artery bypass grafting, diabetes mellitus, hyperlipidemia and hypothyroidism. Patient reports she has not been feeling well for the past 5 days. She's been having productive cough with yellowish to greenish sputum. She's been having fevers with chills and sweats. Also, she missed dialysis on Sunday because she was not feeling well. Sunday she started having vomiting and diarrhea. Last episode of vomiting was yesterday and diarrhea was this afternoon. Patient tried to go to her hemodialysis appointment however it was stopped after only 20 minutes of dialysis. Patient had bradycardia with a heart rate into the 40s. She was recommended to come to the emergency room for further evaluation and treatment. She was found to have a temp of 101.1. Chest x-ray reports correlate for a right lower lobe pneumonia. Patient was started on IV Levaquin in the emergency room. Her influenza screening is negative. EKG shows a sinus rhythm with occasional PVCs and heart rate in the 90s. Cardiology has been consulted for this episode of bradycardia as well as an elevated troponin of 0.184. Patent patient denies any chest pain or shortness of breath. Patient was hospitalized in November with bradycardia and hypotension during dialysis and at that time dialysis settings were adjusted and patient had no further episodes of hypotension or bradycardia. Patient reports that her dialysis has been using these adjusted settings but today she did have another episode of bradycardia. Cardiology and nephrology have been consulted. Patient admitted to the telemetry floor. Patient also noting decrease in appetite since she's been sick. 03/20/2017 patient reports that she is still not feeling well. Stool for C. diff was negative. She did have another episode of diarrhea this morning. No blood present. She is still coughing. Patient reports that tried to do dialysis yesterday but it was unsuccessful in the hospital. Awaiting nephrology recommendations regarding hemodialysis today. Potassium of 6. She is receiving Kayexalate. She had a low-grade temp last night of 100. Chest x- ray this morning showing bilateral lower infiltrates greater on the right. She is currently on Levaquin. Heart rate is been in the 80s to low 100s 03/22/17 patient was up this morning to take a shower. She will reports having some dizziness with taking the shower. Orthostatics will be checked. Patient had hemodialysis yesterday. Also complaining of some nausea no actual vomiting. Denies any chest pain or shortness of breath. Patient also reporting she feels unsteady on her feet Objective - Vital Signs Vital signs: Vital Signs Temp 97.6 F 03/22/17 04:00 Pulse 90 03/22/17 08:00 Resp 16 03/22/17 08:00 BP 107/54 03/22/17 08:00 Pulse Ox 96 03/22/17 08:00 Intake & Output 03/21/17 03/22/17 03/22/17 18:59 06:59 18:59 Intake Total 360 20 Output Total 0 Balance 360 20 Weight 82.7 kg Intake: IV 20 0.9 20 Intake, IV Titration 0 Amount Levofloxacin 750Mg-D5w 0 Pmx 750 mg In Dextrose/ Water 1 150ml.bag @ 100 mls/hr IVPB Q24HR [facility] Rx# :[id number] Oral 360 Output: Urine 0 Other: Voiding Method Toilet Toilet # Voids 0 - Exam Head normocephalic Neck supple Lungs improvement in lung sounds Heart regular rate and rhythm S1-S2, no rub or gallop Abdomen is soft nontender nondistended positive bowel sounds no hepatosplenomegaly Extremities no edema Neuro alert and orientated to 3 - Labs CBC & Chem 7: 03/22/17 05:29 03/22/17 05:29 Labs: Abnormal Lab Results - Last 24 Hours (Table) 03/21/17 03/21/17 03/21/17 Range/Units 13:18 16:23 20:45 WBC (3.8-10.6) k/uL RBC (3.80-5.40) m/uL Hgb (11.4-16.0) gm/dL Hct (34.0-46.0) % RDW (11.5-15.5) % Plt Count (150-450) k/uL Lymphocytes # (1.0-4.8) k/uL Sodium (137-145) mmol/L Chloride (98-107) mmol/L BUN (7-17) mg/dL Creatinine (0.52-1.04) mg/dL Glucose (74-99) mg/dL POC Glucose (mg/dL) 153 H 100 H 119 H (75-99) mg/dL Total Protein (6.3-8.2) g/dL Albumin (3.5-5.0) g/dL 03/22/17 03/22/17 03/22/17 Range/Units 05:29 05:29 06:21 WBC 3.1 L (3.8-10.6) k/uL RBC 3.35 L (3.80-5.40) m/uL Hgb 9.8 L (11.4-16.0) gm/dL Hct 31.0 L (34.0-46.0) % RDW 19.2 H (11.5-15.5) % Plt Count 124 L (150-450) k/uL Lymphocytes # 0.5 L (1.0-4.8) k/uL Sodium 136 L (137-145) mmol/L Chloride 97 L (98-107) mmol/L BUN 28 H (7-17) mg/dL Creatinine 5.40 H* (0.52-1.04) mg/dL Glucose 108 H (74-99) mg/dL POC Glucose (mg/dL) 152 H (75-99) mg/dL Total Protein 6.0 L (6.3-8.2) g/dL Albumin 3.3 L (3.5-5.0) g/dL Microbiology - Last 24 Hours (Table) 03/19/17 20:00 Gram Stain - Final Sputum Sputum Culture - Final 03/19/17 12:36 Blood Culture - Preliminary Blood No Growth after 48 hours 03/19/17 09:20 Blood Culture - Preliminary Blood No Growth after 48 hours 03/19/17 09:11 Blood Culture - Preliminary Blood No Growth after 48 hours 03/19/17 09:07 Blood Culture - Preliminary Blood No Growth after 48 hours Assessment and Plan Assessment: 1. Community-acquired pneumonia: Patient has had fever and productive cough. Chest x-ray reports to correlate for right lower lobe pneumonia. Patient has been started on Levaquin 750 mg IV daily. Influenza screen negative. Repeat chest x-ray showing bilateral lobe infiltrates greater on the right. Patient still having low-grade temps. Continue with the Levaquin. Blood cultures negative. Sputum culture growing moderate gram-positive cocci in chains. Patient has had no further fevers yesterday. Repeat chest x-ray in a.m. 2. Vomiting with diarrhea: Stool for C. diff negative. Patient still having some diarrhea. No further episodes of vomiting 3. Bradycardia during dialysis: Consult cardiology. Continue with telemetry monitoring. Heart rate is been stable. Place parameters around Coreg hold for heart rate less than 55. Patient evaluated by cardiology. No adjustment in medications. Heart rate has been stable 4. Elevated troponin likely a non-thrombotic troponin leak due to her renal failure. Cardiology has been consulted. Patient denies chest pain. 5. History of coronary artery disease and previous coronary bypass grafting and cardiac stents 6. History of myocardial infarction 7. End-stage renal disease with hemodialysis on Sunday. Patient missed Sunday's dialysis appointment 8. chronic anemia secondary to chronic kidney disease 9. diabetes mellitus type 2: resume Lantus and add humalog sliding scale coverage 10. Hyperkalemia: Potassium 6. Give 1 dose of Kayexalate 30 g. Likely secondary to patient not having complete dialysis yesterday. Potassium normal today 11. Dizziness: Check orthostatics which are negative. Encourage increase in activity. Take meals chair. Consult physical therapy to ambulate patient hallway. Anticipate discharge tomorrow GI prophylaxis Protonix and DVT prophylaxis subcu heparin I performed an examination of the patient and discussed their management with the physician Financial Compliance Examiner. I have reviewed the Physician Financial Compliance Examiner's notes and agree with the documented findings and plan of care
[2017-03-22 11:58] LABS: Glucose,Whole Blood 145 mg/dL (75-99)
[2017-03-22] MEDS: GABAPENTIN 100 MG CAP PO SCH ×2 (12:27→20:56)
--- NOTE | 2017-03-22 12:43 | P.PN ---
Subjective Progress Note Date: 03/22/17 Principal diagnosis: Hypotension This is a 61-year-old female who follows with Dr. Rothman in the office. She has a past medical history significant for coronary artery disease with prior bypass surgery, diabetes, hyperlipidemia, end-stage renal disease, cardiology consultation was initially requested because of hypotension. According to the patient, she has not been feeling well at home for the past one week or more, she states that she's been having several diarrhea stools, she 's also had significant body aching, fever and chills. She missed a dialysis treatment, then when she ultimately went to dialysis, her blood pressure was quite low and she was referred to come to the hospital for further evaluation. Patient does have known history of hypotension especially during her dialysis treatments, and she has had hospital admissions for this in the past. She does take midodrine. EKG on arrival shows a normal sinus rhythm with PVCs, nonspecific ST-T wave changes. Chest x-ray shows a right lower lobe pneumonia. Temperature on arrival 101.1, patient has been running temperatures since her arrival here, 102, 101.4. 03/22/2017 Patient seen and examined this morning, had a low-grade temperature of 99.3 earlier. She states that when she was up to have her shower she did have some mild dizziness, complaining of some mild nausea. Blood pressure 107/54, 100/ 58. White blood cell count 3.1, hemoglobin 9.8, platelet count 124. Sodium 136 , potassium 3.9, chloride 97, BUN 28, creatinine 5.4. Objective - Vital Signs Vital signs: Vital Signs Temp 97.6 F 03/22/17 04:00 Pulse 90 03/22/17 08:00 Resp 16 03/22/17 11:39 BP 107/54 03/22/17 08:00 Pulse Ox 96 03/22/17 08:00 Intake & Output 03/21/17 03/22/17 03/22/17 18:59 06:59 18:59 Intake Total 360 20 360 Output Total 0 Balance 360 20 360 Weight 82.7 kg Intake: IV 20 0.9 20 Intake, IV Titration 0 Amount Levofloxacin 750Mg-D5w 0 Pmx 750 mg In Dextrose/ Water 1 150ml.bag @ 100 mls/hr IVPB Q24HR [facility] Rx# :[id number] Oral 360 360 Output: Urine 0 Other: Voiding Method Toilet Toilet Toilet # Voids 0 1 - Exam PHYSICAL EXAMINATION: HEENT: Head is atraumatic, normocephalic. Pupils equal, round. Neck is supple. There is no elevated jugular venous pressure. HEART EXAMINATION: Heart S1, S2 systolic murmur is heard. No murmur or gallop heard. CHEST EXAMINATION:[ Lungs reveal diminished air entry to bilateral bases with crackles to the bases. ABDOMEN: Soft, nontender. Bowel sounds are heard. No organomegaly noted. EXTREMITIES: 2+ peripheral pulses with evidence of peripheral edema and no calf tenderness noted]. NEUROLOGIC [patient is awake, alert and oriented -3.] . - Labs CBC & Chem 7: 03/22/17 05:29 03/22/17 05:29 Labs: Abnormal Lab Results - Last 24 Hours (Table) 03/21/17 03/21/17 03/21/17 Range/Units 13:18 16:23 20:45 WBC (3.8-10.6) k/uL RBC (3.80-5.40) m/uL Hgb (11.4-16.0) gm/dL Hct (34.0-46.0) % RDW (11.5-15.5) % Plt Count (150-450) k/uL Lymphocytes # (1.0-4.8) k/uL Sodium (137-145) mmol/L Chloride (98-107) mmol/L BUN (7-17) mg/dL Creatinine (0.52-1.04) mg/dL Glucose (74-99) mg/dL POC Glucose (mg/dL) 153 H 100 H 119 H (75-99) mg/dL Total Protein (6.3-8.2) g/dL Albumin (3.5-5.0) g/dL 03/22/17 03/22/17 03/22/17 Range/Units 05:29 05:29 06:21 WBC 3.1 L (3.8-10.6) k/uL RBC 3.35 L (3.80-5.40) m/uL Hgb 9.8 L (11.4-16.0) gm/dL Hct 31.0 L (34.0-46.0) % RDW 19.2 H (11.5-15.5) % Plt Count 124 L (150-450) k/uL Lymphocytes # 0.5 L (1.0-4.8) k/uL Sodium 136 L (137-145) mmol/L Chloride 97 L (98-107) mmol/L BUN 28 H (7-17) mg/dL Creatinine 5.40 H* (0.52-1.04) mg/dL Glucose 108 H (74-99) mg/dL POC Glucose (mg/dL) 152 H (75-99) mg/dL Total Protein 6.0 L (6.3-8.2) g/dL Albumin 3.3 L (3.5-5.0) g/dL 03/22/17 Range/Units 11:56 WBC (3.8-10.6) k/uL RBC (3.80-5.40) m/uL Hgb (11.4-16.0) gm/dL Hct (34.0-46.0) % RDW (11.5-15.5) % Plt Count (150-450) k/uL Lymphocytes # (1.0-4.8) k/uL Sodium (137-145) mmol/L Chloride (98-107) mmol/L BUN (7-17) mg/dL Creatinine (0.52-1.04) mg/dL Glucose (74-99) mg/dL POC Glucose (mg/dL) 145 H (75-99) mg/dL Total Protein (6.3-8.2) g/dL Albumin (3.5-5.0) g/dL Microbiology - Last 24 Hours (Table) 03/19/17 09:20 Blood Culture - Preliminary Blood No Growth after 72 hours 03/19/17 09:11 Blood Culture - Preliminary Blood No Growth after 72 hours 03/19/17 09:07 Blood Culture - Preliminary Blood No Growth after 72 hours 03/19/17 20:00 Gram Stain - Final Sputum Sputum Culture - Final 03/19/17 12:36 Blood Culture - Preliminary Blood No Growth after 48 hours Assessment and Plan Plan: Assessment and plan Assessment and plan #1 hypotension and bradycardia during dialysis . #2 known history of coronary artery disease with prior bypass surgery and PCI. Most recent cath performed in June of this year medical therapy advised #3 history of hypertension #4 hyperlipidemia # 5 diabetes #6 end-stage renal disease on hemodialysis #7 pneumonia possible sepsis. Plan Patient is maintaining normal sinus rhythm with a heart rate in the 80s. Blood pressure 107/60. From cardiology's perspective, we will continue patient on her current medications. DNP note has been reviewed, I agree with a documented findings and plan of care. Patient was seen and examined.
[2017-03-22 16:55] LABS: Glucose,Whole Blood 154 mg/dL (75-99)
[2017-03-22 20:52] LABS: Glucose,Whole Blood 182 mg/dL (75-99)
[2017-03-22] MEDS: INSULIN GLARGINE 100 UNIT/ML 10 ML VIAL SQ SCH (20:56)
[2017-03-22] MEDS: ATORVASTATIN 40 MG TAB PO SCH (20:56)
[2017-03-22] MEDS: CLOPIDOGREL 75 MG TAB PO SCH (20:56)
[2017-03-22] MEDS: CINACALCET 30 MG TAB PO SCH (20:56)
[2017-03-22] MEDS: SERTRALINE 50 MG TAB PO SCH (20:57)
[2017-03-22] MEDS: MONTELUKAST 10 MG TAB PO SCH (20:57)
--- NOTE | 2017-03-22 21:56 | PN ---
PROGRESS NOTE Patient is seen for followup for end-stage renal disease. She is currently being treated for pneumonia. She states she is feeling better and has just started to eat. She had poor appetite with nausea earlier. EXAMINATION: Blood pressure was 122/79, heart rate 67 per minute. She is afebrile. HEART: S1, S2. LUNGS: Bilateral breath sounds are heard. ABDOMEN: Soft, nontender. Lower extremities show no evidence of edema. DIRECT MARKETING INTERN: Grossly intact. LABS SHOW: Sodium 136, potassium 3.9, hemoglobin 9.8 g/dL. ASSESSMENT: 1. End-stage renal disease on hemodialysis on a Sunday, Sunday, Sunday schedule. 2. Pneumonia maintained on antibiotics. 3. Coronary artery disease with a history of coronary artery bypass surgery. 4. Hypotension, particularly during dialysis, maintained on midodrine. PLAN: Hemodialysis in a.m. Possible discharge tomorrow post dialysis. MMODL / IJN: [id number] /
[2017-03-23] MEDS: ONDANSETRON 4 MG/2 ML VIAL IVP PRN (06:59)
[2017-03-23 07:26] LABS: Anisocytosis Slight; Basophils % (A) 1 %; CH 28.7; CHCM 30.7; Eosinophils # (A) 0.1 k/uL (0-0.7); Eosinophils % (A) 2 %; HCT 30.7 % (34.0-46.0); HDW 3.05; HGB 9.4 gm/dL (11.4-16.0); Hypochromasia Moderate; Luc # (Auto) 0.05; Luc % (Auto) 1; Lymphocytes # (A) 0.7 k/uL (1.0-4.8); Lymphocytes % (A) 20 %; MCH 28.7 pg (25.0-35.0); MCHC 30.6 g/dL (31.0-37.0); MCV 93.9 fL (80.0-100.0); Mean Platelet Volume 7.7; Monocytes # (A) 0.2 k/uL (0-1.0); Monocytes % (A) 5 %; Neutrophils # (A) 2.5 k/uL (1.3-7.7); Neutrophils % (A) 71 %; RBC 3.27 m/uL (3.80-5.40); RDW 17.6 % (11.5-15.5); WBC 3.4 k/uL (3.8-10.6); WBC (Perox) 3.34
[2017-03-23 07:40] LABS: Calcium 8.5 mg/dL (8.4-10.2); Potassium 3.7 mmol/L (3.5-5.1); Total Bilirubin 0.3 mg/dL (0.2-1.3); Total Protein 5.8 g/dL (6.3-8.2)
[2017-03-23 07:43] LABS: Glucose,Whole Blood 136 mg/dL (75-99)
--- NOTE | 2017-03-23 07:47 | XR ---
EXAMINATION TYPE: XR chest 2V DATE OF EXAM: 03/23/2017 HISTORY: pneumonia. REFERENCE: Previous study dated 03/20/2017. FINDINGS: There has been a midline sternotomy. The heart is enlarged. There is improved aeration of t he right lung base. Pleural spaces are clear. IMPRESSION: IMPROVED AERATION, RIGHT LUNG BASE.
[2017-03-23] MEDS: INSULIN LISPRO (humaLOG) 300 UNIT/3 ML VIAL SQ SCH ×4 (09:35→20:39)
[2017-03-23] MEDS: CARVEDILOL 3.125 MG TAB PO SCH ×2 (09:35→14:10)
[2017-03-23] MEDS: PANTOPRAZOLE 40 MG TABLET PO SCH ×2 (09:35→17:48)
[2017-03-23] MEDS: ALLOPURINOL 100 MG TAB PO SCH (09:36)
[2017-03-23] MEDS: ASPIRIN 81 MG PO SCH (09:36)
[2017-03-23] MEDS: MIDODRINE 5 MG TAB PO SCH (09:36)
[2017-03-23] MEDS: HEPARIN SODIUM,PORCINE 5,000 UNIT/ML 1 ML VIAL SQ SCH ×2 (09:36→20:38)
[2017-03-23] MEDS: GABAPENTIN 100 MG CAP PO SCH ×2 (09:36→20:37)
[2017-03-23] MEDS: LEVOFLOXACIN 500 MG TAB PO SCH (09:36)
[2017-03-23 11:56] LABS: Glucose,Whole Blood 225 mg/dL (75-99)
--- NOTE | 2017-03-23 12:05 | P.PN ---
Subjective Progress Note Date: 03/23/17 this is a 61-year-old female with a known past medical history of end-stage renal disease requiring hemodialysis on Sunday. She also has a known history of coronary artery disease with previous myocardial infarction and coronary artery bypass grafting, diabetes mellitus, hyperlipidemia and hypothyroidism. Patient reports she has not been feeling well for the past 5 days. She's been having productive cough with yellowish to greenish sputum. She's been having fevers with chills and sweats. Also, she missed dialysis on Sunday because she was not feeling well. Sunday she started having vomiting and diarrhea. Last episode of vomiting was yesterday and diarrhea was this afternoon. Patient tried to go to her hemodialysis appointment however it was stopped after only 20 minutes of dialysis. Patient had bradycardia with a heart rate into the 40s. She was recommended to come to the emergency room for further evaluation and treatment. She was found to have a temp of 101.1. Chest x-ray reports correlate for a right lower lobe pneumonia. Patient was started on IV Levaquin in the emergency room. Her influenza screening is negative. EKG shows a sinus rhythm with occasional PVCs and heart rate in the 90s. Cardiology has been consulted for this episode of bradycardia as well as an elevated troponin of 0.184. Patent patient denies any chest pain or shortness of breath. Patient was hospitalized in November with bradycardia and hypotension during dialysis and at that time dialysis settings were adjusted and patient had no further episodes of hypotension or bradycardia. Patient reports that her dialysis has been using these adjusted settings but today she did have another episode of bradycardia. Cardiology and nephrology have been consulted. Patient admitted to the telemetry floor. Patient also noting decrease in appetite since she's been sick. 03/20/2017 patient reports that she is still not feeling well. Stool for C. diff was negative. She did have another episode of diarrhea this morning. No blood present. She is still coughing. Patient reports that tried to do dialysis yesterday but it was unsuccessful in the hospital. Awaiting nephrology recommendations regarding hemodialysis today. Potassium of 6. She is receiving Kayexalate. She had a low-grade temp last night of 100. Chest x- ray this morning showing bilateral lower infiltrates greater on the right. She is currently on Levaquin. Heart rate is been in the 80s to low 100s 03/22/17 patient was up this morning to take a shower. She will reports having some dizziness with taking the shower. Orthostatics will be checked. Patient had hemodialysis yesterday. Also complaining of some nausea no actual vomiting. Denies any chest pain or shortness of breath. Patient also reporting she feels unsteady on her feet 03/23/2017 patient now complaining that her diarrhea has started up again. She reports 7 watery stools through the night. Stool for C. diff has been reordered. Chest x-ray is showing improvement in her pneumonia. Patient states that she's just overall not feeling very well. She scheduled for hemodialysis today and she does report also some dry heaves no actual vomiting Objective - Vital Signs Vital signs: Vital Signs Temp 97.6 F 03/23/17 07:00 Pulse 91 03/23/17 07:00 Resp 20 03/23/17 07:00 BP 118/58 03/23/17 07:00 Pulse Ox 97 03/23/17 07:00 Intake & Output 03/22/17 03/23/17 03/23/17 18:59 06:59 18:59 Intake Total 660 75 Output Total 0 Balance 660 75 Weight 82.7 kg Intake: Oral 660 75 Output: Urine 0 Other: Voiding Method Toilet Toilet # Voids 1 - Exam Head normocephalic Neck supple Lungs improvement in lung sounds Heart regular rate and rhythm S1-S2, no rub or gallop Abdomen is soft nontender nondistended positive bowel sounds no hepatosplenomegaly Extremities no edema Neuro alert and orientated to 3 - Labs CBC & Chem 7: 03/23/17 06:51 03/23/17 06:51 Labs: Abnormal Lab Results - Last 24 Hours (Table) 03/22/17 03/22/17 03/23/17 Range/Units 16:42 20:50 06:51 WBC 3.4 L (3.8-10.6) k/uL RBC 3.27 L (3.80-5.40) m/uL Hgb 9.4 L (11.4-16.0) gm/dL Hct 30.7 L (34.0-46.0) % MCHC 30.6 L (31.0-37.0) g/dL RDW 17.6 H (11.5-15.5) % Plt Count 133 L (150-450) k/uL Lymphocytes # 0.7 L (1.0-4.8) k/uL BUN (7-17) mg/dL Creatinine (0.52-1.04) mg/dL Glucose (74-99) mg/dL POC Glucose (mg/dL) 154 H 182 H (75-99) mg/dL Total Protein (6.3-8.2) g/dL Albumin (3.5-5.0) g/dL 03/23/17 03/23/17 03/23/17 Range/Units 06:51 07:31 11:54 WBC (3.8-10.6) k/uL RBC (3.80-5.40) m/uL Hgb (11.4-16.0) gm/dL Hct (34.0-46.0) % MCHC (31.0-37.0) g/dL RDW (11.5-15.5) % Plt Count (150-450) k/uL Lymphocytes # (1.0-4.8) k/uL BUN 44 H (7-17) mg/dL Creatinine 7.89 H* (0.52-1.04) mg/dL Glucose 135 H (74-99) mg/dL POC Glucose (mg/dL) 136 H 225 H (75-99) mg/dL Total Protein 5.8 L (6.3-8.2) g/dL Albumin 3.2 L (3.5-5.0) g/dL Microbiology - Last 24 Hours (Table) 03/19/17 09:20 Blood Culture - Preliminary Blood No Growth after 96 hours 03/19/17 09:11 Blood Culture - Preliminary Blood No Growth after 96 hours 03/19/17 09:07 Blood Culture - Preliminary Blood No Growth after 96 hours 03/19/17 12:36 Blood Culture - Preliminary Blood No Growth after 72 hours 03/19/17 20:00 Gram Stain - Final Sputum Sputum Culture - Final Assessment and Plan Assessment: 1. Community-acquired pneumonia: Patient has had fever and productive cough. Chest x-ray reports to correlate for right lower lobe pneumonia. Patient has been started on Levaquin 750 mg IV daily. Influenza screen negative. Repeat chest x-ray showing bilateral lobe infiltrates greater on the right. Patient still having low-grade temps. Continue with the Levaquin. Blood cultures negative. Sputum culture growing moderate gram-positive cocci in chains. Patient has had no further fevers yesterday. Chest x-ray from this morning showing improvement in her pneumonia 2. Vomiting with diarrhea: Stool for C. diff negative. Patient still having some diarrhea. No further episodes of vomiting 3. Bradycardia during dialysis: Consult cardiology. Continue with telemetry monitoring. Heart rate is been stable. Place parameters around Coreg hold for heart rate less than 55. Patient evaluated by cardiology. No adjustment in medications. Heart rate has been stable 4. Elevated troponin likely a non-thrombotic troponin leak due to her renal failure. Cardiology has been consulted. Patient denies chest pain. 5. History of coronary artery disease and previous coronary bypass grafting and cardiac stents 6. History of myocardial infarction 7. End-stage renal disease with hemodialysis on Sunday. Patient missed Sunday's dialysis appointment 8. chronic anemia secondary to chronic kidney disease 9. diabetes mellitus type 2: resume Lantus and add humalog sliding scale coverage 10. Hyperkalemia: Potassium 6. Give 1 dose of Kayexalate 30 g. Likely secondary to patient not having complete dialysis yesterday. Potassium normal today 11. Diarrhea: Repeat stool for C. diff. If negative will be able to give Lomotil. Anticipate discharge hopefully tomorrow GI prophylaxis Protonix and DVT prophylaxis subcu heparin I performed an examination of the patient and discussed their management with the physician Refrigeration Insulator. I have reviewed the Physician Refrigeration Insulator's notes and agree with the documented findings and plan of care
[2017-03-23] MEDS: ACETAMINOPHEN TAB 500 MG TAB PO PRN (14:11)
[2017-03-23] MEDS ORDERED: DARBEPOETIN ALFA 40 MCG/0.4 ML SYRINGE SQ SCH (16:00)
--- NOTE | 2017-03-23 16:12 | PN ---
PROGRESS NOTE Patient is seen for followup for end-stage renal disease. She was admitted to the hospital with complaints of cough. She is currently being treated for pneumonia. This morning patient states that she has had diarrhea overnight. She stated she is nauseated and not feeling well. She feels she is not ready for discharge today. EXAMINATION: Blood pressure is 118/58, heart rate 91 per minute. Patient is afebrile. Examination of the heart: S1, S2. Examination lungs: Bilateral breath sounds are heard. Abdomen is soft, nontender. Examination lower extremities shows no evidence of edema. PRESS HAND SUPERVISOR exam is grossly intact. LAB: Shows sodium 137, potassium 3.7, chloride 100, BUN 44, serum creatinine 7.8, hemoglobin 9.4 g/dL. ASSESSMENT: 1. End-stage renal disease, on hemodialysis on a Sunday, Sunday, Sunday schedule. 2. Pneumonia maintained on antibiotics, currently improved. 3. Diarrhea. Will check stool for C. difficile colitis. 4. Anemia of chronic disease. We will maintain patient on Aranesp. 5. Hypotension during dialysis, maintained on midodrine. 6. CKD mineral bone disorder, currently on Sensipar. PLAN: Hemodialysis today. MMODL / IJN: [id number] /
[2017-03-23 17:16] LABS: Glucose,Whole Blood 107 mg/dL (75-99)
[2017-03-23 20:16] LABS: Glucose,Whole Blood 227 mg/dL (75-99)
[2017-03-23] MEDS ORDERED: DIPHENOX-ATROP 2.5-0.025 MG 1 EACH TAB PO PRN (20:26)
[2017-03-23] MEDS: CINACALCET 30 MG TAB PO SCH (20:37)
[2017-03-23] MEDS: ATORVASTATIN 40 MG TAB PO SCH (20:37)
[2017-03-23] MEDS: INSULIN GLARGINE 100 UNIT/ML 10 ML VIAL SQ SCH (20:38)
[2017-03-23] MEDS: MONTELUKAST 10 MG TAB PO SCH (20:38)
[2017-03-23] MEDS: CLOPIDOGREL 75 MG TAB PO SCH (20:38)
[2017-03-23] MEDS: SERTRALINE 50 MG TAB PO SCH (23:03)
[2017-03-24] MEDS: ACETAMINOPHEN TAB 500 MG TAB PO PRN ×2 (03:57→10:53)
[2017-03-24 07:06] LABS: Glucose,Whole Blood 124 mg/dL (75-99)
[2017-03-24] MEDS: INSULIN LISPRO (humaLOG) 300 UNIT/3 ML VIAL SQ SCH ×2 (07:20→12:49)
[2017-03-24] MEDS: CARVEDILOL 3.125 MG TAB PO SCH (07:24)
[2017-03-24] MEDS: PANTOPRAZOLE 40 MG TABLET PO SCH (07:27)
[2017-03-24] MEDS: HEPARIN SODIUM,PORCINE 5,000 UNIT/ML 1 ML VIAL SQ SCH (08:59)
[2017-03-24] MEDS: GABAPENTIN 100 MG CAP PO SCH (08:59)
[2017-03-24] MEDS: ASPIRIN 81 MG PO SCH (08:59)
[2017-03-24] MEDS: ALLOPURINOL 100 MG TAB PO SCH (09:00)
[2017-03-24 11:55] VITALS: BMI 29.9
[2017-03-24 12:11] LABS: Glucose,Whole Blood 186 mg/dL (75-99)
--- NOTE | 2017-03-24 12:33 | P.PN ---
Subjective Progress Note Date: 03/24/17 Principal diagnosis: Follow-up for ESRD Doing better cough improved. No nausea vomiting diarrhea. Objective - Vital Signs Vital signs: Vital Signs Temp 97.5 F L 03/24/17 07:24 Pulse 83 03/24/17 10:43 Resp 20 03/24/17 07:25 BP 92/50 03/24/17 07:25 Pulse Ox 98 03/24/17 07:24 Intake & Output 03/23/17 03/24/17 03/24/17 18:59 06:59 18:59 Intake Total 160 300 Output Total 3 Balance 157 300 Weight 81.647 kg 81.647 kg Intake: IV 10 0.9 10 Oral 150 300 Output: Urine 0 Stool 3 Other: Voiding Method Toilet Toilet Toilet # Voids 1 1 # Bowel Movements 1 - Exam Lying in bed no acute distress S1-S2 heard No edema, right upper arm aVF - Labs CBC & Chem 7: 03/23/17 06:51 03/23/17 06:51 Labs: Abnormal Lab Results - Last 24 Hours (Table) 03/23/17 03/23/17 03/24/17 Range/Units 17:15 20:11 07:04 POC Glucose (mg/dL) 107 H 227 H 124 H (75-99) mg/dL 03/24/17 Range/Units 12:08 POC Glucose (mg/dL) 186 H (75-99) mg/dL Microbiology - Last 24 Hours (Table) 03/19/17 09:20 Blood Culture - Preliminary Blood No Growth after 120 hours 03/19/17 09:11 Blood Culture - Preliminary Blood No Growth after 120 hours 03/19/17 09:07 Blood Culture - Preliminary Blood No Growth after 120 hours 03/19/17 12:36 Blood Culture - Preliminary Blood No Growth after 96 hours Assessment and Plan Assessment: Impression: #1 ESRD, MWF via right upper arm AVF under the care of Dr. Braun. #2 pneumonia currently on oral antibiotics #3 anemia with CKD #4 CKD-MBD Recommendations: #1 plan hemodialysis on Sunday, if stays in the hospital. #2 continue current medications. #3 okay to be discharged from nephrology to be followed up at the dialysis clinic outpatient.
[2017-03-24 14:28] VITALS: BP 95/50; PULSE 55; RESP 18; TEMP 97.8
--- NOTE | 2017-03-24 15:02 | P.DS ---
Providers Date of admission: 03/19/17 11:08 Expected date of discharge: 03/24/17 Attending physician: Kyle Campos Consults: 03/19/17 12:48 Consult Physician Routine Consulting Provider: Jose Guadalupe Braun Consult Reason/Comments: hemodialysis, end-stage renal disease Do you want consulting provider notified?: Yes Primary care physician: Kyle Campos [facility] Course: Diagnoses on discharge: 1. Community-acquired pneumonia: Patient has had fever and productive cough. Chest x-ray reports to correlate for right lower lobe pneumonia. Patient has been started on Levaquin 750 mg IV daily. Influenza screen negative. Repeat chest x-ray showing bilateral lobe infiltrates greater on the right. Patient still having low-grade temps. Continue with the Levaquin. Blood cultures negative. Sputum culture growing moderate gram-positive cocci in chains. Patient has had no further fevers yesterday. Chest x-ray from this morning showing improvement in her pneumonia 2. Vomiting with diarrhea: Stool for C. diff negative. Patient still having some diarrhea. No further episodes of vomiting 3. Bradycardia during dialysis: Consult cardiology. Continue with telemetry monitoring. Heart rate is been stable. Place parameters around Coreg hold for heart rate less than 55. Patient evaluated by cardiology. No adjustment in medications. Heart rate has been stable 4. Elevated troponin likely a non-thrombotic troponin leak due to her renal failure. Cardiology has been consulted. Patient denies chest pain. 5. History of coronary artery disease and previous coronary bypass grafting and cardiac stents 6. History of myocardial infarction 7. End-stage renal disease with hemodialysis on Sunday. Patient missed Sunday's dialysis appointment 8. chronic anemia secondary to chronic kidney disease 9. diabetes mellitus type 2: resume Lantus and add humalog sliding scale coverage 10. Hyperkalemia: Potassium 6. Give 1 dose of Kayexalate 30 g. Likely secondary to patient not having complete dialysis yesterday. Potassium normal today 11. Diarrhea: Repeat stool for C. diff. If negative will be able to give Lomotil. Hospital course: this is a 61-year-old female with a known past medical history of end-stage renal disease requiring hemodialysis on Sunday. She also has a known history of coronary artery disease with previous myocardial infarction and coronary artery bypass grafting, diabetes mellitus, hyperlipidemia and hypothyroidism. Patient reports she has not been feeling well for the past 5 days. She's been having productive cough with yellowish to greenish sputum. She's been having fevers with chills and sweats. Also, she missed dialysis on Sunday because she was not feeling well. Sunday she started having vomiting and diarrhea. Last episode of vomiting was yesterday and diarrhea was this afternoon. Patient tried to go to her hemodialysis appointment however it was stopped after only 20 minutes of dialysis. Patient had bradycardia with a heart rate into the 40s. She was recommended to come to the emergency room for further evaluation and treatment. She was found to have a temp of 101.1. Chest x-ray reports correlate for a right lower lobe pneumonia. Patient was started on IV Levaquin in the emergency room. Her influenza screening is negative. EKG shows a sinus rhythm with occasional PVCs and heart rate in the 90s. Cardiology has been consulted for this episode of bradycardia as well as an elevated troponin of 0.184. Patent patient denies any chest pain or shortness of breath. Patient was hospitalized in November with bradycardia and hypotension during dialysis and at that time dialysis settings were adjusted and patient had no further episodes of hypotension or bradycardia. Patient reports that her dialysis has been using these adjusted settings but today she did have another episode of bradycardia. Cardiology and nephrology have been consulted. Patient admitted to the telemetry floor. Patient also noting decrease in appetite since she's been sick. 03/20/2017 patient reports that she is still not feeling well. Stool for C. diff was negative. She did have another episode of diarrhea this morning. No blood present. She is still coughing. Patient reports that tried to do dialysis yesterday but it was unsuccessful in the hospital. Awaiting nephrology recommendations regarding hemodialysis today. Potassium of 6. She is receiving Kayexalate. She had a low-grade temp last night of 100. Chest x- ray this morning showing bilateral lower infiltrates greater on the right. She is currently on Levaquin. Heart rate is been in the 80s to low 100s 03/22/17 patient was up this morning to take a shower. She will reports having some dizziness with taking the shower. Orthostatics will be checked. Patient had hemodialysis yesterday. Also complaining of some nausea no actual vomiting. Denies any chest pain or shortness of breath. Patient also reporting she feels unsteady on her feet 03/23/2017 patient now complaining that her diarrhea has started up again. She reports 7 watery stools through the night. Stool for C. diff has been reordered. Chest x-ray is showing improvement in her pneumonia. Patient states that she's just overall not feeling very well. She scheduled for hemodialysis today and she does report also some dry heaves no actual vomiting. 03/24/2017 patient is alert and oriented she did not have any bowel movement since she received 1 dose of Motrin last night, C. diff check was negative. On review of system patient denies any fever or chills no headache or dizziness no nausea or vomiting no abdominal pain and no urinary symptoms. Patient states that she is ready to be discharged home Plan - Discharge Summary Discharge Rx Participant: No New Discharge Prescriptions: New Levofloxacin [Levaquin] 500 mg PO Q48H tab Continue Gabapentin [Neurontin] 100 mg PO BID Allopurinol [Zyloprim] 100 mg PO DAILY Nitroglycerin Sl Tabs [Nitrostat] 0.4 mg SUBLINGUAL Q5M PRN #25 tab PRN Reason: Chest Pain Omeprazole [PriLOSEC] 20 mg PO BID Insulin Glargine [Lantus] 35 unit SQ HS Mv-Min/Vit C/Glu/Karla HCl/Hc124 [Airborne Tablet Chewable] 1 tab PO QID PRN PRN Reason: IMMUNE HEALTH Loperamide [Imodium] 2 mg PO QID PRN PRN Reason: Diarrhea Sertraline [Zoloft] 50 mg PO DAILY Clopidogrel [Plavix] 75 mg PO DAILY Insulin Aspart [NovoLOG] See Protocol SQ AC-TID Cinacalcet HCl [Sensipar] 30 mg PO HS Aspirin [Adult Low Dose Aspirin EC] 81 mg PO DAILY Montelukast [Singulair] 10 mg PO HS #30 tab Carvedilol [Coreg] 3.125 mg PO BID Midodrine [ProAmatine] 10 mg PO MOWEFR Atorvastatin [Lipitor] 40 mg PO HS Discharge Medication List Allopurinol [Zyloprim] 100 mg PO DAILY 11/15/14 [History] Gabapentin [Neurontin] 100 mg PO BID 11/15/14 [History] Nitroglycerin Sl Tabs [Nitrostat] 0.4 mg SUBLINGUAL Q5M PRN #25 tab 11/19/14 [Rx ] Omeprazole [PriLOSEC] 20 mg PO BID 01/31/15 [History] Insulin Glargine [Lantus] 35 unit SQ HS 03/03/15 [History] Loperamide [Imodium] 2 mg PO QID PRN 03/03/15 [History] Mv-Min/Vit C/Glu/Karla HCl/Hc124 [Airborne Tablet Chewable] 1 tab PO QID PRN 03/03 [History] Sertraline [Zoloft] 50 mg PO DAILY 03/03/15 [History] Clopidogrel [Plavix] 75 mg PO DAILY 04/23/15 [History] Aspirin [Adult Low Dose Aspirin EC] 81 mg PO DAILY 05/06/16 [History] Cinacalcet HCl [Sensipar] 30 mg PO HS 05/06/16 [History] Insulin Aspart [NovoLOG] See Protocol SQ AC-TID 05/06/16 [History] Montelukast [Singulair] 10 mg PO HS #30 tab 06/30/16 [Rx] Atorvastatin [Lipitor] 40 mg PO HS 03/19/17 [History] Carvedilol [Coreg] 3.125 mg PO BID 03/19/17 [History] Midodrine [ProAmatine] 10 mg PO MOWEFR 03/19/17 [History] Levofloxacin [Levaquin] 500 mg PO Q48H tab 03/24/17 [Rx] Follow up Appointment(s)/Referral(s): Kyle Campos MD [Primary Care Provider] - 1-2 days
== END 2017-03-24 15:30 | disposition home or self-care (01) | DRG 193 ==
LOC: EC 07:24 → 6SEL 11:08 → 5MS5E 03-22 23:20
PROVIDERS: ADMIT Internal Medicine; ATTEND Internal Medicine
PROC: 5A1D70Z Performance of Urinary Filtration, Intermittent, Less than 6 Hours Per Day (ICD-10-PCS; principal; 2017-03-19)
DX: J18.9 Pneumonia, unspecified organism (principal); N18.6 End stage renal disease; I12.0 Hypertensive chronic kidney disease with stage 5 chronic kidney disease or end stage renal disease; E11.22 Type 2 diabetes mellitus with diabetic chronic kidney disease; D69.6 Thrombocytopenia, unspecified; E11.40 Type 2 diabetes mellitus with diabetic neuropathy, unspecified; E87.5 Hyperkalemia; D63.1 Anemia in chronic kidney disease; E03.9 Hypothyroidism, unspecified; E20.9 Hypoparathyroidism, unspecified; E78.5 Hyperlipidemia, unspecified; I25.10 Atherosclerotic heart disease of native coronary artery without angina pectoris; I25.2 Old myocardial infarction; I49.3 Ventricular premature depolarization; K21.9 Gastro-esophageal reflux disease without esophagitis; M10.9 Gout, unspecified; M89.9 Disorder of bone, unspecified; F32.9 Major depressive disorder, single episode, unspecified; K64.9 Unspecified hemorrhoids; I95.3 Hypotension of hemodialysis; I08.1 Rheumatic disorders of both mitral and tricuspid valves; R42 Dizziness and giddiness; R00.1 Bradycardia, unspecified; R11.2 Nausea with vomiting, unspecified; R19.7 Diarrhea, unspecified; R74.8 Abnormal levels of other serum enzymes; Z88.1 Allergy status to other antibiotic agents; Z91.041 Radiographic dye allergy status; Z88.5 Allergy status to narcotic agent; Z88.0 Allergy status to penicillin; Z88.8 Allergy status to other drugs, medicaments and biological substances; Z91.048 Other nonmedicinal substance allergy status; Z79.02 Long term (current) use of antithrombotics/antiplatelets; Z79.4 Long term (current) use of insulin; Z79.82 Long term (current) use of aspirin; Z79.899 Other long term (current) drug therapy; Z99.2 Dependence on renal dialysis; Z95.5 Presence of coronary angioplasty implant and graft; Z95.1 Presence of aortocoronary bypass graft; Z82.49 Family history of ischemic heart disease and other diseases of the circulatory system
CPT/HCPCS: 36415; 71020; 80053; 82550; 82553; 83036; 83605; 84484; 85025; 85610; 85730; 87040; 87070; 87205; 87324; 87502; 90935; 93005; 96360; 99285

== ENCOUNTER 2017-04-01 21:10 | Inpatient (IN) | payer MEDICARE, BC ==
[2017-04-01 22:33] LABS: Anisocytosis Moderate; Basophils # (A) 0.1 k/uL (0-0.2); Basophils % (A) 1 %; CHCM 30.6; Eosinophils # (A) 0.2 k/uL (0-0.7); Eosinophils % (A) 2 %; HCT 37.1 % (34.0-46.0); HGB 11.2 gm/dL (11.4-16.0); Hypochromasia Moderate; Luc # (Auto) 0.08; Luc % (Auto) 1; Lymphocytes # (A) 1.5 k/uL (1.0-4.8); Lymphocytes % (A) 12 %; MCH 28.6 pg (25.0-35.0); MCHC 30.1 g/dL (31.0-37.0); MCV 95.1 fL (80.0-100.0); Macrocytosis Slight; Mean Platelet Volume 8.2; Monocytes # (A) 0.5 k/uL (0-1.0); Monocytes % (A) 4 %; Neutrophils % (A) 81 %; RDW 21.1 % (11.5-15.5); WBC 12.4 k/uL (3.8-10.6); WBC (Perox) 12.71
[2017-04-01 22:38] LABS: Calcium 10.9 mg/dL (8.4-10.2); Magnesium 1.6 mg/dL (1.6-2.3); Potassium 5.3 mmol/L (3.5-5.1); Total Bilirubin 0.4 mg/dL (0.2-1.3); Total Protein 7.1 g/dL (6.3-8.2)
[2017-04-01 22:40] LABS: Partial Thromboplastin Time 22.8 sec (22.0-30.0); Prothrombin Time 10.4 sec (9.0-12.0)
[2017-04-01] MEDS ORDERED: ACETAMINOPHEN TAB 325 MG TAB PO STA (22:46)
[2017-04-01 22:47] LABS: Creatine Kinase <20 U/L (30-135)
[2017-04-01 23:00] LABS: Creatine Kinase MB 1.3 ng/mL (0.0-2.4)
[2017-04-01 23:04] LABS: Troponin I 0.081 ng/mL (0.000-0.034)
--- NOTE | 2017-04-01 23:19 | XR ---
EXAM: XR Chest, 2 Views CLINICAL HISTORY: Reason: Chest Pain TECHNIQUE: Frontal and lateral views of the chest. COMPARISON: 03/23/2017 FINDINGS: Lungs: Persistent diffuse bilateral interstitial prominence is nonspecific and can be seen in the setting of mild interstitial edema or chronic interstitial lung disease. No focal consolidation. Pleural space: Unremarkable. No pneumothorax. Heart: Stable cardiomediastinal silhouette. Mediastinum: Stable postoperative mediastinum. Bones/joints: No acute osseous abnormality. IMPRESSION: Persistent diffuse bilateral interstitial prominence is nonspecific and can be seen in the setting of mild interstitial edema or chronic interstitial lung disease.
[2017-04-01] MEDS ORDERED: NITROGLYCERIN OINT 1 INCH/GM PACKET TOPICAL STA (23:42)
[2017-04-01] MEDS ORDERED: FUROSEMIDE 10 MG/ML 4 ML VIAL IV STA (23:42)
[2017-04-01] MEDS ORDERED: NITROGLYCERIN SL TABS 0.4 MG TAB SUBLINGUAL PRN (23:45)
[2017-04-01] MEDS ORDERED: CARVEDILOL 3.125 MG TAB PO PRN (23:48)
[2017-04-01] MEDS ORDERED: LOPERAMIDE 2 MG CAP PO PRN (23:48)
--- NOTE | 2017-04-02 00:06 | ED ---
Chest Pain HPI - General Chief Complaint: Chest Pain Stated Complaint: Chest Pain Time Seen by Provider: 04/01/17 21:29 Source: patient Mode of arrival: wheelchair Limitations: no limitations - History of Present Illness Initial Comments: This patient is a 61-year-old woman with previous history of coronary artery disease, as well as end-stage renal disease, who presents with complaint of having substernal chest pain. It has come on about 4 hours ago. She states she was just sitting at the time. She states pain is moderate, like a heavy feeling. She states that it did nearly resolve with nitroglycerin, but did subsequently return and that's when she decided to be evaluated here. She has had a little bit of dyspnea. MD Complaint: chest pain Onset/Timin -: hour(s) Onset: during rest Pain Location: substernal, left chest Pain Radiation: LUE Severity: moderate Quality: heaviness Consistency: constant Improves With: nitroglycerin Worsens With: nothing Anginal Symptoms: dyspnea Other Symptoms: cough Treatments Prior to Arrival: nitroglycerin - Related Data Home Medications Medication Instructions Recorded Confirmed Allopurinol [Zyloprim] 100 mg PO DAILY 11/15/14 04/01/17 Gabapentin [Neurontin] 100 mg PO BID 11/15/14 04/01/17 Omeprazole [PriLOSEC] 20 mg PO BID 01/31/15 04/01/17 Insulin Glargine [Lantus] 35 unit SQ HS 03/03/15 04/01/17 Loperamide [Imodium] 2 mg PO QID PRN 03/03/15 04/01/17 Mv-Min/Vit C/Glu/Karla HCl/Hc124 1 tab PO QID PRN 03/03/15 04/01/17 [Airborne Tablet Chewable] Sertraline [Zoloft] 50 mg PO HS 03/03/15 04/02/17 Cinacalcet HCl [Sensipar] 30 mg PO HS 05/06/16 04/01/17 Insulin Aspart [NovoLOG See Protocol SQ AC-TID 05/06/16 04/01/17 (formulary)] Atorvastatin [Lipitor] 40 mg PO HS 03/19/17 04/01/17 Carvedilol [Coreg] 3.125 mg PO BID PRN 03/19/17 04/01/17 Midodrine [ProAmatine] 10 mg PO MOWEFR 03/19/17 04/01/17 Previous Rx's Medication Instructions Recorded Nitroglycerin Sl Tabs [Nitrostat] 0.4 mg SUBLINGUAL Q5M PRN #25 tab 11/19/14 Montelukast [Singulair] 10 mg PO HS #30 tab 06/30/16 Aspirin [Adult Low Dose Aspirin EC] 81 mg PO DAILY #30 tablet. 04/05/17 Clopidogrel [Plavix] 75 mg PO HS #30 tab 04/05/17 Allergies Allergy/AdvReac Type Severity Reaction Status Date / Time adhesive Allergy Rash/Hives Verified 04/01/17 21:59 cephalexin monohydrate Allergy Rash/Hives Verified 04/01/17 21:59 [From Keflex] hydromorphone HCl Allergy Hallucinati Verified 04/01/17 21:59 [From Dilaudid] ons iodine Allergy Rash/Hives Verified 04/01/17 21:59 Penicillins Allergy Unknown Verified 04/01/17 21:59 Childhood povidone-iodine Allergy Unknown Verified 04/01/17 21:59 [From Betadine] shellfish derived [Shrimp] Allergy Rash/Hives Verified 04/01/17 21:59 soap [From Betadine] Allergy Unknown Verified 04/01/17 21:59 fentanyl AdvReac Unknown Verified 04/01/17 21:59 hydrocodone bitartrate AdvReac Itching Verified 04/01/17 21:59 [From Vicodin] midazolam [From Versed] AdvReac Unknown Verified 04/01/17 21:59 morphine AdvReac Hallucinati Verified 04/01/17 21:59 ons tramadol AdvReac Itching Verified 04/01/17 21:59 artifical sweetener AdvReac Unknown Uncoded 04/01/17 21:22 Review of Systems ROS Statement: Those systems with pertinent positive or pertinent negative responses have been documented in the HPI. ROS Other: All systems not noted in ROS Statement are negative. Constitutional: Denies: fever, chills Respiratory: Reports: cough, dyspnea. Denies: wheezes, hemoptysis Cardiovascular: Reports: chest pain, orthopnea. Denies: palpitations, dyspnea on exertion, edema, syncope Gastrointestinal: Denies: abdominal pain, nausea, vomiting Musculoskeletal: Denies: back pain Skin: Denies: rash Neurological: Denies: headache, weakness, numbness EKG Findings - EKG Results: EKG: interpreted by ERMD, sinus rhythm (There is a trigeminy pattern), normal axis, normal QRS EKG shows: tachycardia (Rate approximately 1:15 bpm) - Blocks, [place], Hypertrophy, ST Abn: Repolarization changes or abnormalities: ST suggestive of injury (Inferolateral leads) Past Medical History Past Medical History: Coronary Artery Disease (CAD), Diabetes Mellitus, Hyperlipidemia, Hypertension, Myocardial Infarction (CT), Renal Disease, Thyroid Disorder Additional Past Medical History / Comment(s): MIs, IDDM type II, GOUT R foot, diabetic neuropathy bilateral feet and now "all over", chronic ANEMIA, MITRAL and TRICUSID REGURGITATION, esrd gets hemodialysis [id number]., UTIs, bronchitis, hypoparathyroid, wears O2 at 2L/NC during dialysis only-has had bradycardia and hypotension during dialysis, hemorrhoids-have caused anemia in past, hyperkalemia Last Myocardial Infarction Date:: 07/06/16 History of Any Multi-Drug Resistant Organisms: None Reported Past Surgical History: Coronary Bypass/CABG, Heart Catheterization, Heart Catheterization With Stent Additional Past Surgical History / Comment(s): 07/05/16 cardiac cath-tx medially, PCI/STENTS, 3 VESSEL CABG, AV fistula R upper arm, colonoscopy- normal, bilateral cataract removal with lens implants, bilateral eye laser sx to remove fluid. Past Anesthesia/Blood Transfusion Reactions: Previous Problems w/ Anesthesia Additional Past Anesthesia/Blood Transfusion Reaction / Comment(s): POST OP DELIRIUM/AGITATION/PSYCHOSIS-RESOLVED. Pt states she had a problem with hypotension last time she received versed. Date of Last Stent Placement:: 05/08/16 Past Psychological History: Depression Smoking Status: Never smoker Past Alcohol Use History: None Reported Past Drug Use History: None Reported - Past Family History Mother Family Medical History: Diabetes Mellitus, Myocardial Infarction (CT), Thyroid Disorder Additional Family Medical History / Comment(s): CABG, gout, hypothyroid. Mother is 80yrs old. Sister(s) Family Medical History: Diabetes Mellitus, Thyroid Disorder Father Family Medical History: Diabetes Mellitus, Myocardial Infarction ([place]) Additional Family Medical History / Comment(s): Father at the age of 67yrs of a [place] General Exam Limitations: no limitations General appearance: alert, in distress (Shouldn't appears to be in mild respiratory distress.) Head exam: Present: atraumatic, normocephalic Eye exam: Present: normal appearance. Absent: scleral icterus, conjunctival injection ENT exam: Present: normal oropharynx Respiratory exam: Present: respiratory distress, rales (Bilateral bases). Absent: wheezes, rhonchi, stridor Cardiovascular Exam: Present: normal rhythm, tachycardia (Rate approximately 112 my exam), normal heart sounds. Absent: systolic murmur, diastolic murmur, rubs, gallop GI/Abdominal exam: Present: soft. Absent: distended, tenderness, guarding, rebound Back exam: Present: normal inspection. Absent: CVA tenderness (R), CVA tenderness (L) Neurological exam: Present: alert Skin exam: Present: warm, dry, intact, normal color. Absent: rash Course Vital Signs 04/01/17 04/01/17 04/01/17 21:18 22:57 23:48 Temperature 98.3 F Pulse Rate 113 H 115 H 110 H Respiratory 18 16 20 Rate Blood Pressure 144/74 139/79 134/69 O2 Sat by Pulse 97 97 97 Oximetry Chest Pain MDM - MDM This patient is a 61-year-old woman with end-stage renal disease, coronary artery disease, presenting with chest pain and EKG concerning for possible ischemia. She did have symptom relief after starting medical therapy here. Patient admitted and currently symptom-free. Disposition Clinical Impression: ESRD (end stage renal disease) on dialysis, Elevated troponin, Chest pain Disposition: ADMITTED IP TO THIS HOSP Condition: Stable
[2017-04-02] MEDS ORDERED: HEPARIN SODIUM,PORCINE 5,000 UNIT/ML 1 ML VIAL IV ONE (00:09)
[2017-04-02] MEDS: HEPARIN SODIUM,PORCINE/D5W PMX 25,000 UNIT in DEXTROSE/WATER 1 500ML.BAG IV SCH (01:35)
[2017-04-02] MEDS: SERTRALINE 50 MG TAB PO SCH ×2 (02:27→21:22)
[2017-04-02 04:46] LABS: Anisocytosis Moderate; Basophils # (A) 0.1 k/uL (0-0.2); Basophils % (A) 0 %; CH 28.5; CHCM 29.3; Eosinophils # (A) 0.1 k/uL (0-0.7); Eosinophils % (A) 1 %; HCT 33.5 % (34.0-46.0); HDW 2.67; HGB 9.9 gm/dL (11.4-16.0); Hypochromasia Marked; Luc # (Auto) 0.08; Luc % (Auto) 1; Lymphocytes # (A) 1.5 k/uL (1.0-4.8); Lymphocytes % (A) 12 %; MCH 29.1 pg (25.0-35.0); MCHC 29.7 g/dL (31.0-37.0); MCV 98.2 fL (80.0-100.0); Macrocytosis Moderate; Monocytes # (A) 0.4 k/uL (0-1.0); Monocytes % (A) 3 %; Neutrophils # (A) 10.6 k/uL (1.3-7.7); Neutrophils % (A) 84 %; RBC 3.42 m/uL (3.80-5.40); RDW 20.9 % (11.5-15.5); WBC 12.7 k/uL (3.8-10.6); WBC (Perox) 12.81
[2017-04-02 05:03] LABS: Cholesterol 107 mg/dL (<200); HDL Cholesterol 31 mg/dL (40-60)
[2017-04-02 05:08] LABS: INR 1.1 (<1.2); Partial Thromboplastin Time 31.9 sec (22.0-30.0)
[2017-04-02 05:27] LABS: Creatine Kinase MB 8.4 ng/mL (0.0-2.4); Troponin I 1.89 ng/mL (0.000-0.034)
[2017-04-02 06:56] LABS: Glucose,Whole Blood 184 mg/dL (75-99)
[2017-04-02] MEDS: INSULIN ASPART 100 UNIT/ML 1 ML 10 ML VIAL SQ SCH ×3 (07:48→17:15)
[2017-04-02] MEDS ORDERED: SERTRALINE 50 MG TAB PO SCH (09:00)
[2017-04-02] MEDS ORDERED: ASPIRIN 325 MG TAB PO SCH (09:00)
[2017-04-02] MEDS ORDERED: CARVEDILOL 1.563 MG TAB PO STA (09:02)
[2017-04-02 10:11] LABS: Creatine Kinase MB 9.2 ng/mL (0.0-2.4); Troponin I 3.56 ng/mL (0.000-0.034)
[2017-04-02] MEDS: HEPARIN SODIUM,PORCINE 5,000 UNIT/ML 1 ML VIAL IV PRN (10:18)
--- NOTE | 2017-04-02 11:14 | P.CRDCN ---
History of Present Illness Consult date: 04/02/17 Requesting physician: Zehra Lang Consult reason: chest pain Chief complaint: Chest pain History of present illness: This is a pleasant 61-year-old female who follows regularly with Dr. Rothman in the office. She has a known history of diabetes, hypertension, hyperlipidemia, coronary artery disease with prior bypass surgery as well as stent placements, most recent stenting was performed in April [address] ROBB Santillan at which time the patient underwent stenting of the. Patient also has history of end-stage renal disease on hemodialysis and has had multiple admissions to the hospital because of hypotension and bradycardia during dialysis. On this occasion the patient presents to the hospital with symptoms of chest pressure and heaviness, she did take a nitroglycerin with some relief of symptoms but shortly thereafter the symptoms returned and for this reason she came to the hospital for further evaluation. According to the patient the pain reminded her of the discomfort she had with her prior myocardial infarction. EKG on presentation here showed a sinus tachycardia with lateral ST depression. White blood cell count 12.7, hemoglobin 11.2 on admission, 9.9 this morning. D-dimer is 0.6. Potassium 5.3. BUN 66, creatinine 8.2. Troponins as 0.08, 1.8, and 3.5 subsequently. Chest x-ray reveals persistent diffuse bilateral interstitial prominence which can be seen in the setting of mild interstitial edema or chronic interstitial lung disease. At the time of our examination this morning, patient is currently chest pain-free. Past Medical History Past Medical History: Coronary Artery Disease (CAD), Diabetes Mellitus, Hyperlipidemia, Hypertension, Myocardial Infarction ([place]), Renal Disease, Thyroid Disorder Additional Past Medical History / Comment(s): MIs, IDDM type II, GOUT R foot, diabetic neuropathy bilateral feet and now "all over", chronic ANEMIA, MITRAL and TRICUSID REGURGITATION, esrd gets hemodialysis [id number]., UTIs, bronchitis, hypoparathyroid, wears O2 at 2L/NC during dialysis only-has had bradycardia and hypotension during dialysis, hemorrhoids-have caused anemia in past, hyperkalemia Last Myocardial Infarction Date:: 07/06/16 History of Any Multi-Drug Resistant Organisms: None Reported Past Surgical History: Coronary Bypass/CABG, Heart Catheterization, Heart Catheterization With Stent Additional Past Surgical History / Comment(s): 07/05/16 cardiac cath-tx medially, PCI/STENTS, 3 VESSEL CABG, AV fistula R upper arm, colonoscopy- normal, bilateral cataract removal with lens implants, bilateral eye laser sx to remove fluid. Past Anesthesia/Blood Transfusion Reactions: Previous Problems w/ Anesthesia Additional Past Anesthesia/Blood Transfusion Reaction / Comment(s): POST OP DELIRIUM/AGITATION/PSYCHOSIS-RESOLVED. Pt states she had a problem with hypotension last time she received versed. Date of Last Stent Placement:: 05/08/16 Past Psychological History: Depression Additional Psychological History / Comment(s): Pt lives with her spouse in a 2 story home that has 2 porch steps. 1 pet cat. pt has a cane,walker,w/c,shower chair/bsc if needed and a nebulizer. Spouse manages her medications. They have been 39 yrs. Smoking Status: Never smoker Past Alcohol Use History: None Reported Past Drug Use History: None Reported - Past Family History Mother Family Medical History: Diabetes Mellitus, Myocardial Infarction ([place]), Thyroid Disorder Additional Family Medical History / Comment(s): CABG, gout, hypothyroid. Mother is 80yrs old. Sister(s) Family Medical History: Diabetes Mellitus, Thyroid Disorder Father Family Medical History: Diabetes Mellitus, Myocardial Infarction ([place]) Additional Family Medical History / Comment(s): Father at the age of 67yrs of a [place] Medications and Allergies Home Medications Medication Instructions Recorded Confirmed Type Allopurinol [Zyloprim] 100 mg PO DAILY 11/15/14 04/01/17 History Gabapentin [Neurontin] 100 mg PO BID 11/15/14 04/01/17 History Nitroglycerin Sl Tabs [Nitrostat] 0.4 mg SUBLINGUAL Q5M PRN #25 tab 11/19/1405/06 Rx Omeprazole [PriLOSEC] 20 mg PO BID 01/31/15 04/01/17 History Insulin Glargine [Lantus] 35 unit SQ HS 03/03/15 04/01/17 History Loperamide [Imodium] 2 mg PO QID PRN 03/03/15 04/01/17 History Mv-Min/Vit C/Glu/Karla HCl/Hc124 1 tab PO QID PRN 03/03/15 04/01/17 History [Airborne Tablet Chewable] Sertraline [Zoloft] 50 mg PO HS 03/03/15 04/02/17 History Clopidogrel [Plavix] 75 mg PO HS 04/23/15 04/01/17 History Aspirin [Adult Low Dose Aspirin EC] 81 mg PO DAILY 05/06/16 04/01/17 History Cinacalcet HCl [Sensipar] 30 mg PO HS 05/06/16 04/01/17 History Insulin Aspart [NovoLOG See Protocol SQ AC-TID 05/06/16 04/01/17 History (formulary)] Montelukast [Singulair] 10 mg PO HS #30 tab 06/30/16 04/01/17 Rx Atorvastatin [Lipitor] 40 mg PO HS 03/19/17 04/01/17 History Carvedilol [Coreg] 3.125 mg PO BID PRN 03/19/17 04/01/17 History Midodrine [ProAmatine] 10 mg PO MOWEFR 03/19/17 04/01/17 History Levofloxacin [Levaquin] 500 mg PO Q48H tab 03/24/17 04/01/17 Rx Allergies Allergy/AdvReac Type Severity Reaction Status Date / Time adhesive Allergy Rash/Hives Verified 04/01/17 21:59 cephalexin monohydrate Allergy Rash/Hives Verified 04/01/17 21:59 [From Keflex] hydromorphone HCl Allergy Hallucinati Verified 04/01/17 21:59 [From Dilaudid] ons iodine Allergy Rash/Hives Verified 04/01/17 21:59 Penicillins Allergy Unknown Verified 04/01/17 21:59 Childhood povidone-iodine Allergy Unknown Verified 04/01/17 21:59 [From Betadine] shellfish derived [Shrimp] Allergy Rash/Hives Verified 04/01/17 21:59 soap [From Betadine] Allergy Unknown Verified 04/01/17 21:59 fentanyl AdvReac Unknown Verified 04/01/17 21:59 hydrocodone bitartrate AdvReac Itching Verified 04/01/17 21:59 [From Vicodin] midazolam [From Versed] AdvReac Unknown Verified 04/01/17 21:59 morphine AdvReac Hallucinati Verified 04/01/17 21:59 ons tramadol AdvReac Itching Verified 04/01/17 21:59 artifical sweetener AdvReac Unknown Uncoded 04/01/17 21:22 Physical Exam Vitals: Vital Signs Temp Pulse Pulse Resp BP BP Pulse Ox 04/02/17 09:45 98 04/02/17 07:46 97 F L 96 18 99/49 98 04/02/17 04:00 98 F 92 18 90/54 92 L 04/02/17 01:00 106 H 16 04/02/17 00:50 97.0 F L 106 H 18 133/72 96 04/01/17 23:48 110 H 20 134/69 97 04/01/17 22:57 115 H 16 139/79 97 04/01/17 21:18 98.3 F 113 H 18 144/74 97 Intake and Output 04/01/17 04/02/17 04/02/17 22:59 06:59 14:59 Intake Total 150 171.544 Balance 150 171.544 Intake: IV 50 Heparin Sodium,Porcine/ 50 D5w Pmx 25,000 unit In Dextrose/Water 1 500ml. bag @ 12 UNITS/KG/HR 19. 68 mls/hr IV .Q24H [facility] Rx #:[id number] Intake, IV Titration 100 171.544 Amount Heparin Sodium,Porcine/ 100 171.544 D5w Pmx 25,000 unit In Dextrose/Water 1 500ml. bag @ 12 UNITS/KG/HR 19. 68 mls/hr IV .Q24H [facility] Rx #:[id number] Other: # Voids 0 Weight 82 kg 81.9 kg PHYSICAL EXAMINATION: HEENT: Head is atraumatic, normocephalic. Pupils equal, round. Neck is supple. There is no elevated jugular venous pressure. HEART EXAMINATION: Heart S1 and S2 systolic ejection murmur is heard. CHEST EXAMINATION: Lungs are clear anteriorly with diminished air entry to bilateral bases. ABDOMEN: Soft, nontender. Bowel sounds are heard. No organomegaly noted. EXTREMITIES: 2+ peripheral pulses with no evidence of peripheral edema and no calf tenderness noted. NEUROLOGIC patient is awake, alert and oriented -3. . Results 04/02/17 04:23 04/01/17 21:43 Cardiac Enzymes 04/01/17 04/01/17 04/02/17 Range/Units 21:43 21:43 04:23 AST 26 (14-36) U/L CK-MB (CK-2) 1.3 8.4 H* (0.0-2.4) ng/mL Troponin I 0.081 H* 1.890 H* (0.000-0.034) ng/mL 04/02/17 Range/Units 09:11 AST (14-36) U/L CK-MB (CK-2) 9.2 H* (0.0-2.4) ng/mL Troponin I 3.560 H* (0.000-0.034) ng/mL Coagulation 04/01/17 04/02/17 04/02/17 Range/Units 21:43 04:23 09:11 PT 10.4 11.0 (9.0-12.0) sec APTT 22.8 31.9 H 34.8 H (22.0-30.0) sec Lipids 04/02/17 Range/Units 04:23 Triglycerides 259 H (<150) mg/dL Cholesterol 107 (<200) mg/dL HDL Cholesterol 31 L (40-60) mg/dL CBC 04/01/17 04/02/17 Range/Units 21:43 04:23 WBC 12.4 H 12.7 H (3.8-10.6) k/uL RBC 3.90 3.42 L (3.80-5.40) m/uL Hgb 11.2 L 9.9 L (11.4-16.0) gm/dL Hct 37.1 33.5 L (34.0-46.0) % Plt Count 214 166 (150-450) k/uL Comprehensive Metabolic Panel 04/01/17 Range/Units 21:43 Sodium 143 (137-145) mmol/L Potassium 5.3 H (3.5-5.1) mmol/L Chloride 101 (98-107) mmol/L Carbon Dioxide 23 (22-30) mmol/L BUN 66 H (7-17) mg/dL Creatinine 8.20 H* (0.52-1.04) mg/dL Glucose 176 H (74-99) mg/dL Calcium 10.9 H (8.4-10.2) mg/dL AST 26 (14-36) U/L ALT 31 (9-52) U/L Alkaline Phosphatase 208 H (38-126) U/L Total Protein 7.1 (6.3-8.2) g/dL Albumin 4.4 (3.5-5.0) g/dL Current Medications Generic Name Dose Route Start Last Admin Trade Name Freq PRN Reason Stop Dose Admin Aspirin 81 mg 04/02/17 09:00 Aspirin PO DAILY [facility] Atorvastatin Calcium 40 mg 04/02/17 21:00 Lipitor PO HS [facility] Carvedilol 3.125 mg 04/01/17 23:48 Coreg PO BID PRN HIGH BLOOD PRESSURE Cinacalcet 30 mg 04/02/17 21:00 Sensipar PO HS [facility] Clopidogrel Bisulfate 75 mg 04/02/17 21:00 Plavix PO HS [facility] Gabapentin 100 mg 04/02/17 09:00 Neurontin PO BID [facility] Heparin Sodium (Porcine) 0 unit 04/02/17 00:09 04/02/17 10:18 Heparin IV 4,000 unit PER PROTOCOL PRN Administration Low PTT Protocol Heparin Sodium/Dextrose 25,000 500 mls @ 19.68 mls/hr 04/02/17 00:15 10:18 unit/ IV Solution IV 15 units/kg/hr .Q24H [facility] 24.6 mls/hr Protocol Titration 12 UNITS/KG/HR Insulin Aspart 0 unit 04/02/17 07:30 04/02/17 07:48 Novolog SQ 2 unit AC-TID [facility] Administration Protocol Insulin Detemir 35 unit 04/02/17 21:00 Levemir SQ HS [facility] Loperamide HCl 2 mg 04/01/17 23:48 Imodium PO QID PRN Diarrhea Midodrine 10 mg 04/02/17 23:48 Proamatine PO MOWEFR [facility] Montelukast Sodium 10 mg 04/02/17 21:00 Singulair PO HS [facility] Nitroglycerin 0.4 mg 04/01/17 23:45 Nitrostat SUBLINGUAL Q5M PRN Chest Pain Pantoprazole Sodium 40 mg 04/02/17 09:00 Protonix PO BID [facility] Sertraline HCl 50 mg 04/02/17 01:47 04/02/17 02:27 Zoloft PO 50 mg HS [facility] Administration Intake and Output 04/01/17 04/02/17 04/02/17 22:59 06:59 14:59 Intake Total 150 171.544 Balance 150 171.544 Intake: IV 50 Heparin Sodium,Porcine/ 50 D5w Pmx 25,000 unit In Dextrose/Water 1 500ml. bag @ 12 UNITS/KG/HR 19. 68 mls/hr IV .Q24H [facility] Rx #:[id number] Intake, IV Titration 100 171.544 Amount Heparin Sodium,Porcine/ 100 171.544 D5w Pmx 25,000 unit In Dextrose/Water 1 500ml. bag @ 12 UNITS/KG/HR 19. 68 mls/hr IV .Q24H [facility] Rx #:[id number] Other: # Voids 0 Weight 82 kg 81.9 kg 04/02/17 04:23 04/01/17 21:43 EKG Interpretations (text) EKG shows a normal sinus rhythm with lateral ST depression and occasional PVCs. Assessment and Plan Plan: Assessment and plan #1 chest pressure and heaviness with evidence of EKG changes and abnormal troponins, suggesting non-Q-wave myocardial infarction. #2 known history of coronary artery disease with prior bypass surgery and PCI. Patient underwent PTCA and stenting of the ramus intermediate, high first obtuse marginal branch in April, subsequent to that she did have a heart cath in June medical therapy advised at that time. #3 hypertension #4 hyperlipidemia #5 diabetes #6 end-stage renal disease on hemodialysis #7 Frequent episodes of hypotension. Plan We will obtain an echocardiogram with Doppler study. Continue the patient on IV heparin. Patient is recommended to undergo her dialysis treatment today, options are somewhat limited based on her coronary anatomy, however patient has been advised to undergo cardiac catheterization. If the patient experiences more pain we may need to proceed with heart cath today. Dr. Radha Santillan will discuss this further with Dr. Rothman and further recommendations then will be made. DNP note has been reviewed, I agree with a documented findings and plan of care. Patient was seen and examined.
[2017-04-02 11:37] LABS: Glucose,Whole Blood 240 mg/dL (75-99)
[2017-04-02] MEDS: GABAPENTIN 100 MG CAP PO SCH ×2 (11:45→21:22)
[2017-04-02] MEDS: PANTOPRAZOLE 40 MG TABLET PO SCH ×2 (11:45→21:22)
[2017-04-02] MEDS: ASPIRIN 81 MG PO SCH (11:45)
[2017-04-02] MEDS: MIDODRINE 5 MG TAB PO SCH (12:22)
--- NOTE | 2017-04-02 13:02 | P.HPIM ---
History of Present Illness H&P Date: 04/02/17 Chief Complaint: Chest pain This is a 61-year-old female with a known history of myocardial infarction, coronary artery disease with previous CABG and cardiac stent. Also history of diabetes mellitus, hypertension, hyperlipidemia, chronic kidney disease requiring hemodialysis on Sundayday Sunday. She's had multiple admissions because of hypotension and bradycardia during dialysis. However, yesterday patient had sharp chest pain that radiated from the left to the right side of her chest. With associated symptoms of shortness of breath nausea and diaphoresis. She took a nitro which did help relieve the symptoms slightly. However, the chest pain did come back very sharp and patient was concerned about another heart attack. She presented to the emergency room was started on IV heparin. Troponin was 0.08, 1.8 and 3.5. She was diagnosed with a non-Q- wave ID. She also is having EKG changes which showed sinus tachycardia with a lateral ST depression. Cardiology is evaluating patient closely and have decided to take patient for a heart catheterization tomorrow. Chest x-ray reveals persistent diffuse bilateral interstitial prominence which can be seen in the setting of mild interstitial edema or chronic interstitial lung disease. Patient denies any vomiting, bowel movement changes or urinary symptoms. Still dealing with a cough since her pneumonia. However that has improved. She had 1 more dose of Levaquin which would have been her second round of antibiotics. Again she is afebrile. Review of Systems Please refer to HPI otherwise unremarkable Past Medical History Past Medical History: Coronary Artery Disease (CAD), Diabetes Mellitus, Hyperlipidemia, Hypertension, Myocardial Infarction (ID), Renal Disease, Thyroid Disorder Additional Past Medical History / Comment(s): MIs, IDDM type II, GOUT R foot, diabetic neuropathy bilateral feet and now "all over", chronic ANEMIA, MITRAL and TRICUSID REGURGITATION, esrd gets hemodialysis ebs-dum-ivdm., UTIs, bronchitis, hypoparathyroid, wears O2 at 2L/NC during dialysis only-has had bradycardia and hypotension during dialysis, hemorrhoids-have caused anemia in past, hyperkalemia Last Myocardial Infarction Date:: 07/06/16 History of Any Multi-Drug Resistant Organisms: None Reported Past Surgical History: Coronary Bypass/CABG, Heart Catheterization, Heart Catheterization With Stent Additional Past Surgical History / Comment(s): 07/05/16 cardiac cath-tx medially, PCI/STENTS, 3 VESSEL CABG, AV fistula R upper arm, colonoscopy- normal, bilateral cataract removal with lens implants, bilateral eye laser sx to remove fluid. Past Anesthesia/Blood Transfusion Reactions: Previous Problems w/ Anesthesia Additional Past Anesthesia/Blood Transfusion Reaction / Comment(s): POST OP DELIRIUM/AGITATION/PSYCHOSIS-RESOLVED. Pt states she had a problem with hypotension last time she received versed. Date of Last Stent Placement:: 05/08/16 Past Psychological History: Depression Additional Psychological History / Comment(s): Pt lives with her spouse in a 2 story home that has 2 porch steps. 1 pet cat. pt has a cane,walker,w/c,shower chair/bsc if needed and a nebulizer. Spouse manages her medications. They have been 39 yrs. Smoking Status: Never smoker Past Alcohol Use History: None Reported Past Drug Use History: None Reported - Past Family History Mother Family Medical History: Diabetes Mellitus, Myocardial Infarction (ID), Thyroid Disorder Additional Family Medical History / Comment(s): CABG, gout, hypothyroid. Mother is 80yrs old. Sister(s) Family Medical History: Diabetes Mellitus, Thyroid Disorder Father Family Medical History: Diabetes Mellitus, Myocardial Infarction (ID) Additional Family Medical History / Comment(s): Father at the age of 67yrs of a ID Medications and Allergies Home Medications Medication Instructions Recorded Confirmed Type Allopurinol [Zyloprim] 100 mg PO DAILY 11/15/14 04/01/17 History Gabapentin [Neurontin] 100 mg PO BID 11/15/14 04/01/17 History Nitroglycerin Sl Tabs [Nitrostat] 0.4 mg SUBLINGUAL Q5M PRN #25 tab 11/19/1405/06 Rx Omeprazole [PriLOSEC] 20 mg PO BID 01/31/15 04/01/17 History Insulin Glargine [Lantus] 35 unit SQ HS 03/03/15 04/01/17 History Loperamide [Imodium] 2 mg PO QID PRN 03/03/15 04/01/17 History Mv-Min/Vit C/Glu/Karla HCl/Hc124 1 tab PO QID PRN 03/03/15 04/01/17 History [Airborne Tablet Chewable] Sertraline [Zoloft] 50 mg PO HS 03/03/15 04/02/17 History Clopidogrel [Plavix] 75 mg PO HS 04/23/15 04/01/17 History Aspirin [Adult Low Dose Aspirin EC] 81 mg PO DAILY 05/06/16 04/01/17 History Cinacalcet HCl [Sensipar] 30 mg PO HS 05/06/16 04/01/17 History Insulin Aspart [NovoLOG See Protocol SQ AC-TID 05/06/16 04/01/17 History (formulary)] Montelukast [Singulair] 10 mg PO HS #30 tab 06/30/16 04/01/17 Rx Atorvastatin [Lipitor] 40 mg PO HS 03/19/17 04/01/17 History Carvedilol [Coreg] 3.125 mg PO BID PRN 03/19/17 04/01/17 History Midodrine [ProAmatine] 10 mg PO MOWEFR 03/19/17 04/01/17 History Levofloxacin [Levaquin] 500 mg PO Q48H tab 03/24/17 04/01/17 Rx Allergies Allergy/AdvReac Type Severity Reaction Status Date / Time adhesive Allergy Rash/Hives Verified 04/01/17 21:59 cephalexin monohydrate Allergy Rash/Hives Verified 04/01/17 21:59 [From Keflex] hydromorphone HCl Allergy Hallucinati Verified 04/01/17 21:59 [From Dilaudid] ons iodine Allergy Rash/Hives Verified 04/01/17 21:59 Penicillins Allergy Unknown Verified 04/01/17 21:59 Childhood povidone-iodine Allergy Unknown Verified 04/01/17 21:59 [From Betadine] shellfish derived [Shrimp] Allergy Rash/Hives Verified 04/01/17 21:59 soap [From Betadine] Allergy Unknown Verified 04/01/17 21:59 fentanyl AdvReac Unknown Verified 04/01/17 21:59 hydrocodone bitartrate AdvReac Itching Verified 04/01/17 21:59 [From Vicodin] midazolam [From Versed] AdvReac Unknown Verified 04/01/17 21:59 morphine AdvReac Hallucinati Verified 04/01/17 21:59 ons tramadol AdvReac Itching Verified 04/01/17 21:59 artifical sweetener AdvReac Unknown Uncoded 04/01/17 21:22 Physical Exam Vitals: Vital Signs Temp Pulse Pulse Resp BP BP Pulse Ox 04/02/17 09:45 98 04/02/17 07:46 97 F L 96 18 99/49 98 04/02/17 04:00 98 F 92 18 90/54 92 L 04/02/17 01:00 106 H 16 04/02/17 00:50 97.0 F L 106 H 18 133/72 96 04/01/17 23:48 110 H 20 134/69 97 04/01/17 22:57 115 H 16 139/79 97 04/01/17 21:18 98.3 F 113 H 18 144/74 97 Intake and Output 04/01/17 04/02/17 04/02/17 22:59 06:59 14:59 Intake Total 150 171.544 Balance 150 171.544 Intake: IV 50 Heparin Sodium,Porcine/ 50 D5w Pmx 25,000 unit In Dextrose/Water 1 500ml. bag @ 12 UNITS/KG/HR 19. 68 mls/hr IV .Q24H [facility] Rx #:[id number] Intake, IV Titration 100 171.544 Amount Heparin Sodium,Porcine/ 100 171.544 D5w Pmx 25,000 unit In Dextrose/Water 1 500ml. bag @ 12 UNITS/KG/HR 19. 68 mls/hr IV .Q24H [facility] Rx #:[id number] Other: # Voids 0 Weight 82 kg 81.9 kg Head normocephalic Neck supple Lungs crackles at bases Heart regular rate and rhythm S1-S2, no rub or gallop Abdomen is soft nontender nondistended positive bowel sounds no hepatosplenomegaly Extremities no edema Neuro alert and orientated to 3 Results CBC & Chem 7: 04/02/17 04:23 04/01/17 21:43 Labs: Abnormal Lab Results - Last 24 Hours (Table) 04/01/17 04/01/17 04/01/17 Range/Units 21:43 21:43 21:43 WBC 12.4 H (3.8-10.6) k/uL RBC (3.80-5.40) m/uL Hgb 11.2 L (11.4-16.0) gm/dL Hct (34.0-46.0) % MCHC 30.1 L (31.0-37.0) g/dL RDW 21.1 H (11.5-15.5) % Neutrophils # 10.0 H (1.3-7.7) k/uL APTT (22.0-30.0) sec D-Dimer (<0.60) mg/L FEU Potassium 5.3 H (3.5-5.1) mmol/L BUN 66 H (7-17) mg/dL Creatinine 8.20 H* (0.52-1.04) mg/dL Glucose 176 H (74-99) mg/dL POC Glucose (mg/dL) (75-99) mg/dL Calcium 10.9 H (8.4-10.2) mg/dL Alkaline Phosphatase 208 H (38-126) U/L Total Creatine Kinase <20 L (30-135) U/L CK-MB (CK-2) (0.0-2.4) ng/mL Troponin I 0.081 H* (0.000-0.034) ng/mL Triglycerides (<150) mg/dL HDL Cholesterol (40-60) mg/dL 04/01/17 04/02/17 04/02/17 Range/Units 21:43 04:23 04:23 WBC (3.8-10.6) k/uL RBC (3.80-5.40) m/uL Hgb (11.4-16.0) gm/dL Hct (34.0-46.0) % MCHC (31.0-37.0) g/dL RDW (11.5-15.5) % Neutrophils # (1.3-7.7) k/uL APTT (22.0-30.0) sec D-Dimer 0.67 H (<0.60) mg/L FEU Potassium (3.5-5.1) mmol/L BUN (7-17) mg/dL Creatinine (0.52-1.04) mg/dL Glucose (74-99) mg/dL POC Glucose (mg/dL) (75-99) mg/dL Calcium (8.4-10.2) mg/dL Alkaline Phosphatase (38-126) U/L Total Creatine Kinase (30-135) U/L CK-MB (CK-2) 8.4 H* (0.0-2.4) ng/mL Troponin I 1.890 H* (0.000-0.034) ng/mL Triglycerides 259 H (<150) mg/dL HDL Cholesterol 31 L (40-60) mg/dL 04/02/17 04/02/17 04/02/17 Range/Units 04:23 04:23 06:53 WBC 12.7 H (3.8-10.6) k/uL RBC 3.42 L (3.80-5.40) m/uL Hgb 9.9 L (11.4-16.0) gm/dL Hct 33.5 L (34.0-46.0) % MCHC 29.7 L (31.0-37.0) g/dL RDW 20.9 H (11.5-15.5) % Neutrophils # 10.6 H (1.3-7.7) k/uL APTT 31.9 H (22.0-30.0) sec D-Dimer (<0.60) mg/L FEU Potassium (3.5-5.1) mmol/L BUN (7-17) mg/dL Creatinine (0.52-1.04) mg/dL Glucose (74-99) mg/dL POC Glucose (mg/dL) 184 H (75-99) mg/dL Calcium (8.4-10.2) mg/dL Alkaline Phosphatase (38-126) U/L Total Creatine Kinase (30-135) U/L CK-MB (CK-2) (0.0-2.4) ng/mL Troponin I (0.000-0.034) ng/mL Triglycerides (<150) mg/dL HDL Cholesterol (40-60) mg/dL 04/02/17 04/02/17 04/02/17 Range/Units 09:11 09:11 11:34 WBC (3.8-10.6) k/uL RBC (3.80-5.40) m/uL Hgb (11.4-16.0) gm/dL Hct (34.0-46.0) % MCHC (31.0-37.0) g/dL RDW (11.5-15.5) % Neutrophils # (1.3-7.7) k/uL APTT 34.8 H (22.0-30.0) sec D-Dimer (<0.60) mg/L FEU Potassium (3.5-5.1) mmol/L BUN (7-17) mg/dL Creatinine (0.52-1.04) mg/dL Glucose (74-99) mg/dL POC Glucose (mg/dL) 240 H (75-99) mg/dL Calcium (8.4-10.2) mg/dL Alkaline Phosphatase (38-126) U/L Total Creatine Kinase (30-135) U/L CK-MB (CK-2) 9.2 H* (0.0-2.4) ng/mL Troponin I 3.560 H* (0.000-0.034) ng/mL Triglycerides (<150) mg/dL HDL Cholesterol (40-60) mg/dL Thrombosis Risk Factor Assmnt - Choose All That Apply Any of the Below Risk Factors Present?: Yes Each Factor Represents 1 point: Age 41-60 years, Obesity (BMI >25), Serious lung disease incl. pneumonia (< 1month) Other Risk Factors: No Other congenital or acquired thrombophilia - If yes, enter type in comment: No Thrombosis Risk Factor Assessment Total Risk Factor Score: 3 Thrombosis Risk Factor Assessment Level: Moderate Risk Assessment and Plan Assessment: 1. Acute non-Q wave myocardial infarction: Patient had elevated troponin and EKGs changes with chest pain. Patient is currently on IV heparin. Aspirin 81 mg daily. She is scheduled for heart catheterization tomorrow. 2. End-stage renal disease on hemodialysis Sunday. She is scheduled for hemodialysis today 3. Essential hypertension 4. Hyperlipidemia 5. Diabetes mellitus 2 6. Anemia of chronic kidney disease. Patient reports taking Procrit injections with her dialysis. Hemoglobin 9.9 7. Episodes of hypotension patient on Midodrine before dialysis 8. Recent pneumonia: No pneumonia on chest x-ray. Monitor patient off of antibiotics. Patient needed 2 rounds of antibiotics. GI prophylaxis Protonix and DVT prophylaxis IV heparin Time with Patient: Greater than 30 (Greater than 50% of the total time spent in counseling and coordination of care.I performed an examination of the patient and discussed their management with the physician Axle Bearing Polisher. I have reviewed the Physician Axle Bearing Polisher's notes and agree with the documented findings and plan of care)
[2017-04-02] MEDS: ACETAMINOPHEN TAB 500 MG TAB PO PRN ×2 (15:02→21:29)
[2017-04-02 17:00] LABS: Glucose,Whole Blood 148 mg/dL (75-99)
[2017-04-02 21:22] LABS: Glucose,Whole Blood 226 mg/dL (75-99)
[2017-04-02] MEDS: CINACALCET 30 MG TAB PO SCH (21:22)
[2017-04-02] MEDS: ATORVASTATIN 40 MG TAB PO SCH (21:22)
[2017-04-02] MEDS: CLOPIDOGREL 75 MG TAB PO SCH (21:22)
[2017-04-02] MEDS: MONTELUKAST 10 MG TAB PO SCH (21:22)
[2017-04-02] MEDS: INSULIN DETEMIR 100 UNIT/ML 10 ML VIAL SQ SCH (21:29)
[2017-04-02] MEDS ORDERED: predniSONE 20 MG TAB PO ONE (22:10)
[2017-04-02] MEDS ORDERED: MIDODRINE 5 MG TAB PO SCH (23:48)
[2017-04-02] MEDS: diphenhydrAMINE 25 MG CAP PO SCH (23:57)
[2017-04-03] MEDS: HEPARIN SODIUM,PORCINE/D5W PMX 25,000 UNIT in DEXTROSE/WATER 1 500ML.BAG IV SCH (00:22)
[2017-04-03] MEDS: HEPARIN SODIUM,PORCINE 5,000 UNIT/ML 1 ML VIAL IV PRN (00:55)
[2017-04-03 03:05] LABS: Hepatitis B Surface Antibody Equivocal (Non-Reactive)
[2017-04-03 03:47] LABS: Glucose,Whole Blood 293 mg/dL (75-99)
[2017-04-03] MEDS: ACETAMINOPHEN TAB 500 MG TAB PO PRN ×3 (04:55→22:44)
[2017-04-03] MEDS ORDERED: predniSONE 20 MG TAB PO ONE (06:00)
[2017-04-03 06:41] LABS: Glucose,Whole Blood 307 mg/dL (75-99)
[2017-04-03 06:41] LABS: Anisocytosis Moderate; Basophils % (A) 0 %; CH 28.5; CHCM 29.8; Eosinophils # (A) 0.1 k/uL (0-0.7); Eosinophils % (A) 1 %; HDW 2.68; HGB 9.3 gm/dL (11.4-16.0); Hypochromasia Marked; Luc # (Auto) 0.03; Luc % (Auto) 0; Lymphocytes # (A) 0.6 k/uL (1.0-4.8); Lymphocytes % (A) 6 %; MCHC 30.2 g/dL (31.0-37.0); MCV 96.3 fL (80.0-100.0); Macrocytosis Slight; Monocytes # (A) 0.1 k/uL (0-1.0); Monocytes % (A) 2 %; Neutrophils # (A) 7.7 k/uL (1.3-7.7); Neutrophils % (A) 91 %; RBC 3.22 m/uL (3.80-5.40); RDW 20.4 % (11.5-15.5); WBC 8.5 k/uL (3.8-10.6); WBC (Perox) 9.48
[2017-04-03] MEDS: GABAPENTIN 100 MG CAP PO SCH ×2 (06:56→20:00)
[2017-04-03] MEDS: diphenhydrAMINE 25 MG CAP PO SCH (06:56)
[2017-04-03] MEDS: ASPIRIN 81 MG PO SCH (06:56)
[2017-04-03] MEDS: ALLOPURINOL 100 MG TAB PO SCH (06:56)
[2017-04-03] MEDS: INSULIN ASPART 100 UNIT/ML 1 ML 10 ML VIAL SQ SCH ×3 (06:56→17:42)
[2017-04-03] MEDS: PANTOPRAZOLE 40 MG TABLET PO SCH ×2 (06:56→19:59)
[2017-04-03 07:09] LABS: Calcium 9.4 mg/dL (8.4-10.2); Potassium 4.8 mmol/L (3.5-5.1)
--- NOTE | 2017-04-03 07:32 | CONS ---
CONSULTATION REASON FOR CONSULT: End-stage renal disease. HISTORY OF PRESENT ILLNESS: Patient is a 61-year-old female with history of end-stage renal disease, on hemodialysis on a Sunday, Sunday, Sunday schedule. Patient was admitted to the hospital with complaints of chest pain. She did rule in for acute DE and she will be dialyzed today. Her troponin was at 3.560. No complaints of fever, cough. The patient was recently hospitalized for pneumonia, that was the earlier part of this month about 1-1/2 weeks ago. PAST MEDICAL HISTORY: End-stage renal disease on hemodialysis, CKD mineral bone disorder, history of coronary artery disease, anemia of chronic disease, mitral regurg, tricuspid regurg, peripheral neuropathy, hyperlipidemia, hypertension. PAST SURGICAL HISTORY: Coronary artery bypass surgery, cardiac catheterization, AV fistula, cataract surgery, laser eye surgery. SOCIAL HISTORY: Negative for smoking, drug abuse or alcohol abuse. MEDICATIONS: Medications at home prior to admission include insulin, Prilosec, Neurontin, Zyloprim, PhosLo, Plavix, Zoloft, Sensipar, Lasix, Slow-Mag, Imdur, PhosLo, Tylenol. ALLERGIES: Allergies include KEFLEX, DILAUDID, PENICILLIN, IODINE, VERSED, MORPHINE, TRAMADOL, ARTIFICIAL SWEETENER, FENTANYL. SOCIAL HISTORY: Negative for smoking, drug abuse or alcohol abuse. PHYSICAL EXAMINATION: On examination, patient is comfortable, awake, not in any acute distress. Alert and oriented x3. Blood pressure earlier this morning was 99/49, heart rate 87 per minute. Patient is afebrile. EXAMINATION OF THE HEART: S1, S2. EXAMINATION OF THE LUNGS: Bilateral breath sounds are heard. Decreased breath sounds at bases. Abdomen is soft, nontender. Examination lower extremities shows no significant edema. COORDINATE MEASURING MACHINE OPERATOR exam is grossly intact. LAB: Labs show sodium of 143, potassium 5.3, chloride 101, CO2 is 23, BUN 66, serum creatinine 8.2, hemoglobin 11.2 g/dL yesterday. ASSESSMENT: 1. End-stage renal disease, on hemodialysis on a Sunday, Sunday, Sunday schedule. The patient will be dialyzed today. 2. Congestive heart failure/fluid overload. We will increase UF as tolerated. 3. Chest pain with non-ST elevation myocardial infarction and elevated troponins. 4. Anemia of chronic disease. 5. Mild hyperkalemia, expect improvement with dialysis today. PLAN: Hemodialysis today. Increase UF as tolerated. Await cardiology decision regarding cardiac catheterization. MMODL / IJN: [id number] /
[2017-04-03] MEDS: ONDANSETRON 4 MG/2 ML VIAL IVP PRN ×2 (08:52→19:59)
[2017-04-03] MEDS ORDERED: predniSONE 20 MG TAB PO SCH (09:00)
--- NOTE | 2017-04-03 10:57 | P.PN ---
Subjective Progress Note Date: 04/03/17 This is a 61-year-old female with a known history of myocardial infarction, coronary artery disease with previous CABG and cardiac stent. Also history of diabetes mellitus, hypertension, hyperlipidemia, chronic kidney disease requiring hemodialysis on Sunday. She's had multiple admissions because of hypotension and bradycardia during dialysis. However, yesterday patient had sharp chest pain that radiated from the left to the right side of her chest. With associated symptoms of shortness of breath nausea and diaphoresis. She took a nitro which did help relieve the symptoms slightly. However, the chest pain did come back very sharp and patient was concerned about another heart attack. She presented to the emergency room was started on IV heparin. Troponin was 0.08, 1.8 and 3.5. She was diagnosed with a non-Q- wave PR. She also is having EKG changes which showed sinus tachycardia with a lateral ST depression. Cardiology is evaluating patient closely and have decided to take patient for a heart catheterization tomorrow. Chest x-ray reveals persistent diffuse bilateral interstitial prominence which can be seen in the setting of mild interstitial edema or chronic interstitial lung disease. Patient denies any vomiting, bowel movement changes or urinary symptoms. Still dealing with a cough since her pneumonia. However that has improved. She had 1 more dose of Levaquin which would have been her second round of antibiotics. Again she is afebrile. 04/03/2017 patient had another episode of chest pain last night. She was given Tylenol. It did help. She is scheduled for heart catheterization this afternoon. She has any shortness of breath. Denies any nausea or vomiting. Is still reporting productive cough with yellowish to greenish sputum. Denies any nausea or vomiting. Denies any burning with urination. Had hemodialysis yesterday Objective - Vital Signs Vital signs: Vital Signs Temp 96.1 F L 04/03/17 06:04 Pulse 93 04/03/17 06:04 Resp 18 04/03/17 06:04 BP 114/69 04/03/17 06:04 Pulse Ox 97 04/03/17 06:04 Intake & Output 04/02/17 04/03/17 04/03/17 18:59 06:59 18:59 Intake Total 541.694 130.216 Balance 541.694 130.216 Weight 82 kg Intake: Intake, IV Titration 341.694 130.216 Amount Heparin Sodium,Porcine/ 341.694 130.216 D5w Pmx 25,000 unit In Dextrose/Water 1 500ml. bag @ 12 UNITS/KG/HR 19. 68 mls/hr IV .Q24H [facility] Rx #:[id number] Oral 200 Other: Voiding Method Toilet # Voids 1 1 - Exam Head normocephalic Neck supple Lungs clear to auscultation bilaterally no wheezing or crackles Heart regular rate and rhythm S1-S2, no rub or gallop Abdomen is soft nontender nondistended positive bowel sounds no hepatosplenomegaly Extremities no edema Neuro alert and orientated to 3 - Labs CBC & Chem 7: 04/03/17 06:20 04/03/17 06:20 Labs: Abnormal Lab Results - Last 24 Hours (Table) 04/02/17 04/02/17 04/02/17 Range/Units 11:34 16:27 16:27 RBC (3.80-5.40) m/uL Hgb (11.4-16.0) gm/dL Hct (34.0-46.0) % MCHC (31.0-37.0) g/dL RDW (11.5-15.5) % Plt Count (150-450) k/uL Lymphocytes # (1.0-4.8) k/uL APTT 103.0 H* (22.0-30.0) sec Sodium (137-145) mmol/L Carbon Dioxide (22-30) mmol/L BUN (7-17) mg/dL Creatinine (0.52-1.04) mg/dL Glucose (74-99) mg/dL POC Glucose (mg/dL) 240 H (75-99) mg/dL Hep Bs Antibody Equivocal H (Non-Reactive) 04/02/17 04/02/17 04/03/17 Range/Units 16:54 21:10 00:15 RBC (3.80-5.40) m/uL Hgb (11.4-16.0) gm/dL Hct (34.0-46.0) % MCHC (31.0-37.0) g/dL RDW (11.5-15.5) % Plt Count (150-450) k/uL Lymphocytes # (1.0-4.8) k/uL APTT 39.7 H (22.0-30.0) sec Sodium (137-145) mmol/L Carbon Dioxide (22-30) mmol/L BUN (7-17) mg/dL Creatinine (0.52-1.04) mg/dL Glucose (74-99) mg/dL POC Glucose (mg/dL) 148 H 226 H (75-99) mg/dL Hep Bs Antibody (Non-Reactive) 04/03/17 04/03/17 04/03/17 Range/Units 03:46 06:11 06:20 RBC 3.22 L (3.80-5.40) m/uL Hgb 9.3 L (11.4-16.0) gm/dL Hct 31.0 L (34.0-46.0) % MCHC 30.2 L (31.0-37.0) g/dL RDW 20.4 H (11.5-15.5) % Plt Count 139 L (150-450) k/uL Lymphocytes # 0.6 L (1.0-4.8) k/uL APTT (22.0-30.0) sec Sodium (137-145) mmol/L Carbon Dioxide (22-30) mmol/L BUN (7-17) mg/dL Creatinine (0.52-1.04) mg/dL Glucose (74-99) mg/dL POC Glucose (mg/dL) 293 H 307 H (75-99) mg/dL Hep Bs Antibody (Non-Reactive) 04/03/17 04/03/17 Range/Units 06:20 06:20 RBC (3.80-5.40) m/uL Hgb (11.4-16.0) gm/dL Hct (34.0-46.0) % MCHC (31.0-37.0) g/dL RDW (11.5-15.5) % Plt Count (150-450) k/uL Lymphocytes # (1.0-4.8) k/uL APTT 51.5 H (22.0-30.0) sec Sodium 133 L (137-145) mmol/L Carbon Dioxide 21 L (22-30) mmol/L BUN 41 H (7-17) mg/dL Creatinine 5.83 H* (0.52-1.04) mg/dL Glucose 306 H (74-99) mg/dL POC Glucose (mg/dL) (75-99) mg/dL Hep Bs Antibody (Non-Reactive) Assessment and Plan Assessment: 1. Acute non-Q wave myocardial infarction: Patient had elevated troponin and EKG changes with chest pain. Patient is currently on IV heparin. Aspirin 81 mg daily. Patient scheduled heart catheterization today 2. End-stage renal disease on hemodialysis Sunday. Nephrology following. Had hemodialysis yesterday 3. Essential hypertension 4. Hyperlipidemia 5. Diabetes mellitus 2: Hyperglycemia with blood sugars near 300 secondary to prednisone in which she received for the IV dye for the heart cath. Also there is dextrose in the IV fluids for the heparin. Continue to cover with sliding scale 6. Anemia of chronic kidney disease. Patient reports taking Procrit injections with her dialysis. Continue to monitor hemoglobin 7. Episodes of hypotension patient on Midodrine before dialysis 8. Recent pneumonia: No pneumonia on chest x-ray. Monitor patient off of antibiotics. Patient needed 2 rounds of antibiotics. GI prophylaxis Protonix and DVT prophylaxis IV heparin I performed an examination of the patient and discussed their management with the physician Water Pollution Control Technician. I have reviewed the Physician Water Pollution Control Technician's notes and agree with the documented findings and plan of care
[2017-04-03] MEDS ORDERED: LIDOCAINE 2% INJ 20 MG/ML (20 ML MDV) ONE (12:02)
[2017-04-03] MEDS ORDERED: IV FLUID CONTINUATION 850 ML IV ONE (12:15)
[2017-04-03] MEDS ORDERED: LIDOCAINE 2% INJ 20 MG/ML SQ ONE ×2 (12:33)
[2017-04-03] MEDS ORDERED: BIVALIRUDIN BOLUS 250 MG/50 ML IV ONE (12:52)
[2017-04-03] MEDS ORDERED: BIVALIRUDIN 250 MG in SODIUM CHLORIDE 0.9% 50 ML IV ONE (12:53)
[2017-04-03] MEDS ORDERED: IODIXANOL 320 MG/ML 100 ML INTRAARTER ONE (13:29)
[2017-04-03] MEDS ORDERED: CLOPIDOGREL 75 MG TAB ONE (13:30)
[2017-04-03] MEDS ORDERED: CLOPIDOGREL 75 MG TAB PO ONE (13:39)
[2017-04-03] MEDS ORDERED: RX INFO: IV CONTRAST WAS GIVEN 1 EACH MISC MISCELLANE PRN (13:51)
[2017-04-03] MEDS ORDERED: MAG HYDROX/AL HYDROX/SIMETH 30 ML CUP PO PRN (13:51)
[2017-04-03] MEDS ORDERED: NITROGLYCERIN SL TABS 0.4 MG TAB SUBLINGUAL PRN (13:51)
[2017-04-03] MEDS ORDERED: ZOLPIDEM 5 MG TAB PO PRN (13:51)
[2017-04-03] MEDS ORDERED: ATROPINE SULFATE 0.1 MG/ML 10ML SYRINGE IV PRN (13:51)
[2017-04-03] MEDS ORDERED: SODIUM CHLORIDE 0.9% 1,000 ML IV SCH (14:00)
--- NOTE | 2017-04-03 14:13 | CC ---
CARDIAC CATHETERIZATION REPORT Mrs. Mcqueen is a 61-year-old female with known history of coronary artery disease, status post bypass grafting and percutaneous revascularization, history of end-stage renal disease, who presented with symptoms of chest pain and had enzymatic changes consistent with non ST-segment elevation myocardial infarction. In view of that, recommendation made regarding cardiac catheterization, the procedures, risks and complication were discussed with the patient who is in full understanding and agreement. PROCEDURE: Patient was brought to the [facility] in the fasting state after receiving Benadryl and prednisone. Patient elected not to received sedation. Using Xylocaine anesthesia and Seldinger technique, a 6-Kenyan sheath was introduced in the right femoral artery. Selective right and left angiography performed using 6-Kenyan 4 bend right and left Jim catheter, multiple views of the coronary artery including hemiaxial views were obtained. Following that, the 6-Kenyan right Jim catheter was used to cannulate the MICHELLE to LAD. Images of the grafts were obtained. Following that, a 6-Kenyan tight pigtail catheter was introduced into the left ventricle and pressures were calculated. Following that, the catheter removed. Images were reviewed. FINDINGS: 1. LEFT MAIN: This is a large-sized vessel, trifurcating into the left circumflex, left anterior descending artery and ramus intermedius. Left main coronary artery has no evidence of high-grade stenosis. 2. LEFT ANTERIOR DESCENDING ARTERY: This vessel is totally subtotally occluded proximally. Prior to that, there is a first diagonal branch that is occluded with no significant antegrade flow. The LAD beyond the first septal resource forester is subtotally occluded with minimal antegrade flow. 3. LEFT CIRCUMFLEX: This vessel gives rise to the first obtuse marginal branch that has diffuse intimal disease with area of stenosis up to 99%. Distally, the left circumflex is totally occluded with no significant antegrade flow. 4. RAMUS INTERMEDIUS: This is a stented vessel, in the midsegment of the stent there is a 99% stenosis with a long area of stenosis proximal to the stent as well. The rest of the vessel is diffusely diseased, small caliber, without any evidence of high-grade stenosis. 5. RIGHT CORONARY ARTERY: This is a dominant vessel that is totally occluded after the takeoff of the acute marginal branch. There is minimal antegrade flow. The acute marginal branch has an area of stenosis up to 95%. 6. MICHELLE TO THE LAD: The distal anastomotic site is patent. The flow into the LAD is brisk. There is no evidence of high-grade stenosis. 7. LEFT VENTRICULOGRAM: Left ventriculogram was not performed. 8. HEMODYNAMICS: There was no gradient across the aortic valve. The left ventricular end-diastolic pressure was 16 to 20 mmHg. CONCLUSION: 1. Severe triple-vessel coronary artery disease with evidence of restenosis in the ramus intermedius. 2. Patent MICHELLE to the left anterior descending artery. RECOMMENDATION: In view of finding anatomy, I would recommend proceeding with angioplasty and stenting of the ramus intermedius. The procedures, risks and complications were discussed with the patient who is full understanding and agreement. MMODL / IJN: [id number] /
--- NOTE | 2017-04-03 16:14 | PTCA ---
PERCUTANEOUSTRANS CORORONARY ANGIOGRAPHY Mrs. Mcqueen is a 61-year-old female with a known history of coronary disease with multiple percutaneous revascularization, status post bypass grafting, who presented with evidence of non ST-segment elevation myocardial infarction, underwent cardiac catheterization, was found to have critical stenosis involving the ramus intermedius. In view of that recommendation regarding angioplasty and stenting, the procedures risks and complication were discussed with the patient who is in full understanding and agreement. PROCEDURE: A 6-Finnish FR4 guiding catheter introduced into the system. After cannulating the left main a 0.014 balanced medium weight J-wire was advanced across the lesion and positioned distally. Then a 2.25 x 15 mm Trek balloon was advanced and multiple inflation maximum of 12 atmospheres were done. Following that, the balloon was removed and attempt to advance a 2.25 x 28 mm Xience Alpine stent was unsuccessful. That stent was removed and another 0.014 balanced medium weight J-wire was advanced next to the first one in rhonda fashion and in spite of that there was inability to advance the 28 mm stent. At that point, the stent was removed and a 2.25 x 18 mm Xience Alpine stent was deployed, postdilated at 16 atmospheres and after removing the balloon, another 2.25 x 15 mm Xience Alpine stent was deployed distal to the first one and was post dilated at 16 atmospheres. Subsequent inflation in the overlap segment 16 atmosphere was done. After the last inflation, after appropriate wait the balloon and the guidewire were withdrawn back in the guiding catheter. Images were obtained repeated. Those images reveal stable successful stenting. At that point, the guiding catheter and balloon were removed. The sheath was sutured in place. The patient is returned to her room in stable condition. Of note, the patient received Angiomax per protocol and she had chest discomfort with the inflation that resolved at the end of the procedure. RESULTS: Successful stenting of the ramus intermedius with reduction of stenosis from 99% to 0%. RECOMMENDATION: Patient will be continued on aspirin, Plavix, beta luis, and statin. The importance of dual antiplatelet treatment were discussed with the patient who is in full understanding and agreement. MMODL / IJN: [id number] /
[2017-04-03 16:42] LABS: Glucose,Whole Blood 247 mg/dL (75-99)
[2017-04-03] MEDS ORDERED: DARBEPOETIN ALFA 40 MCG/0.4 ML SYRINGE SQ SCH (19:15)
[2017-04-03] MEDS: CLOPIDOGREL 75 MG TAB PO SCH (19:59)
[2017-04-03] MEDS: MONTELUKAST 10 MG TAB PO SCH (19:59)
[2017-04-03] MEDS: CINACALCET 30 MG TAB PO SCH (19:59)
[2017-04-03] MEDS: SERTRALINE 50 MG TAB PO SCH (19:59)
[2017-04-03] MEDS: ATORVASTATIN 40 MG TAB PO SCH (19:59)
--- NOTE | 2017-04-03 20:04 | PN ---
PROGRESS NOTE Patient is seen for followup for end-stage renal disease. She was taken back to the label sewer this afternoon and was found to have a restenoses of the newly placed stent. She has had restenting of the ramus intermedius. She is currently chest pain free and is scheduled for hemodialysis in a.m. The patient is maintained on dual antiplatelet therapy. EXAMINATION: Blood pressure is 114/60, heart rate 85 per minute. She is afebrile. Examination of the heart: S1, S2. Examination lungs: Bilateral breath sounds are heard. Abdomen is soft, nontender. Examination lower extremity shows no evidence of edema. [employer] exam is grossly intact. LAB: Show sodium 133, potassium 4.8, BUN 41, serum creatinine 5.83, hemoglobin 9.3 g/dL. ASSESSMENT: 1. End-stage renal disease, on hemodialysis on a Sunday, Sunday, Sunday schedule. 2. Chronic kidney disease bone mineral disorder maintained on Sensipar. 3. Chest pain/coronary artery disease, non ST elevation myocardial infarction, status post cardiac catheterization and stenting of the restenosis of recent coronary stent placement. 4. Hypotension maintained on midodrine. 5. Fluid overload on initial admission, currently improved. PLAN: 1. Hep-Lock IV. We will dialyze in a.m. with goal UF of about 2 L as tolerated. The patient will receive the midodrine prior to her treatment. 2. Anemia of chronic disease. We will maintain patient on Aranesp. MMMECCAL / SÁNCHEZN: [id number] /
[2017-04-03 20:39] LABS: Glucose,Whole Blood 309 mg/dL (75-99)
[2017-04-03] MEDS: INSULIN DETEMIR 100 UNIT/ML 10 ML VIAL SQ SCH (22:10)
[2017-04-04] MEDS ORDERED: ATROPINE SULFATE 0.1 MG/ML 10ML SYRINGE ONE (01:59)
[2017-04-04 06:07] LABS: Anisocytosis Slight; Basophils % (A) 0 %; CH 29.8; CHCM 30.5; Eosinophils # (A) 0.1 k/uL (0-0.7); Eosinophils % (A) 1 %; HCT 28.7 % (34.0-46.0); HDW 2.72; HGB 8.6 gm/dL (11.4-16.0); Hypochromasia Moderate; Luc # (Auto) 0.13; Luc % (Auto) 1; Lymphocytes # (A) 1.4 k/uL (1.0-4.8); Lymphocytes % (A) 13 %; MCH 29.2 pg (25.0-35.0); MCHC 29.9 g/dL (31.0-37.0); MCV 97.9 fL (80.0-100.0); Macrocytosis Slight; Mean Platelet Volume 8.4; Monocytes # (A) 0.4 k/uL (0-1.0); Monocytes % (A) 4 %; Neutrophils # (A) 8.4 k/uL (1.3-7.7); Neutrophils % (A) 81 %; RBC 2.93 m/uL (3.80-5.40); RDW 18.9 % (11.5-15.5); WBC 10.5 k/uL (3.8-10.6); WBC (Perox) 10.31
[2017-04-04 06:08] LABS: Glucose,Whole Blood 217 mg/dL (75-99)
[2017-04-04 06:27] LABS: Calcium 9.3 mg/dL (8.4-10.2); Potassium 4.9 mmol/L (3.5-5.1)
[2017-04-04] MEDS: ACETAMINOPHEN TAB 500 MG TAB PO PRN (06:39)
[2017-04-04] MEDS: INSULIN ASPART 100 UNIT/ML 1 ML 10 ML VIAL SQ SCH ×3 (07:01→17:30)
[2017-04-04] MEDS: ALLOPURINOL 100 MG TAB PO SCH (09:01)
[2017-04-04] MEDS: ASPIRIN 81 MG PO SCH (09:01)
[2017-04-04] MEDS: PANTOPRAZOLE 40 MG TABLET PO SCH ×2 (09:02→20:28)
[2017-04-04] MEDS: GABAPENTIN 100 MG CAP PO SCH ×2 (09:16→20:28)
[2017-04-04] MEDS: MIDODRINE 5 MG TAB PO SCH (11:07)
[2017-04-04 11:49] LABS: Glucose,Whole Blood 215 mg/dL (75-99)
--- NOTE | 2017-04-04 12:50 | P.PN ---
Subjective Progress Note Date: 04/04/17 Principal diagnosis: Non-STEMI This is a pleasant 61-year-old female who follows regularly with Dr. Rothman in the office. She has a known history of diabetes, hypertension, hyperlipidemia, coronary artery disease with prior bypass surgery as well as stent placements, most recent stenting was performed in April [address] ROBB Santillan at which time the patient underwent stenting of the. Patient also has history of end-stage renal disease on hemodialysis and has had multiple admissions to the hospital because of hypotension and bradycardia during dialysis. On this occasion the patient presents to the hospital with symptoms of chest pressure and heaviness, she did take a nitroglycerin with some relief of symptoms but shortly thereafter the symptoms returned and for this reason she came to the hospital for further evaluation. According to the patient the pain reminded her of the discomfort she had with her prior myocardial infarction. EKG on presentation here showed a sinus tachycardia with lateral ST depression. White blood cell count 12.7, hemoglobin 11.2 on admission, 9.9 this morning. D-dimer is 0.6. Potassium 5.3. BUN 66, creatinine 8.2. Troponins as 0.08, 1.8, and 3.5 subsequently. Chest x-ray reveals persistent diffuse bilateral interstitial prominence which can be seen in the setting of mild interstitial edema or chronic interstitial lung disease. At the time of our examination this morning, patient is currently chest pain-free. 03/04/2017 Patient was taken to the cardiac catheterization lab yesterday where she underwent successful stenting of the ramus intermedius by Dr. Rothman. EKG this morning shows normal sinus rhythm with lateral ST depression. Blood pressure 94 /50 heart rate in the 80s, 95% on room air. Hemoglobin 8.6, platelet count 160 , potassium 4.9, BUN 58, creatinine 7.8. Patient is scheduled to undergo dialysis today. She was seen and examined, denies any chest discomfort, just feeling weak today. Objective - Vital Signs Vital signs: Vital Signs Temp 96.0 F L 04/04/17 08:00 Pulse 85 04/04/17 08:00 Resp 18 04/04/17 06:53 BP 94/50 04/04/17 08:00 Pulse Ox 95 04/04/17 08:00 Intake & Output 04/03/17 04/04/17 04/04/17 18:59 06:59 18:59 Intake Total 289.84 118 Output Total 0 0 Balance 289.84 118 Weight 82 kg 70.45 kg Intake: IV 171.84 Oral 118 118 Output: Urine 0 0 Other: Voiding Method Toilet Bedpan Bedpan # Voids 0 # Bowel Movements 1 - Exam PHYSICAL EXAMINATION: HEENT: Head is atraumatic, normocephalic. Pupils equal, round. Neck is supple. There is no elevated jugular venous pressure. HEART EXAMINATION: Heart S1 S2 1 systolic ejection murmur is heard. CHEST EXAMINATION: Lungs are clear to auscultation and precussion. No chest wall tenderness is noted on palpation or with deep breathing. ABDOMEN: Soft, nontender. Bowel sounds are heard. No organomegaly noted. Right groin soft, no evidence of any hematoma. EXTREMITIES: 2+ peripheral pulses with no evidence of peripheral edema and no calf tenderness noted. NEUROLOGIC patient is awake, alert and oriented -3. . - Labs CBC & Chem 7: 04/04/17 05:41 04/04/17 05:41 Labs: Abnormal Lab Results - Last 24 Hours (Table) 04/03/17 04/03/17 04/03/17 Range/Units 16:15 16:34 18:14 RBC (3.80-5.40) m/uL Hgb (11.4-16.0) gm/dL Hct (34.0-46.0) % MCHC (31.0-37.0) g/dL RDW (11.5-15.5) % Neutrophils # (1.3-7.7) k/uL APTT 52.3 H 45.5 H (22.0-30.0) sec Sodium (137-145) mmol/L Chloride (98-107) mmol/L Carbon Dioxide (22-30) mmol/L BUN (7-17) mg/dL Creatinine (0.52-1.04) mg/dL Glucose (74-99) mg/dL POC Glucose (mg/dL) 247 H (75-99) mg/dL 04/03/17 04/03/17 04/03/17 Range/Units 20:00 20:38 22:00 RBC (3.80-5.40) m/uL Hgb (11.4-16.0) gm/dL Hct (34.0-46.0) % MCHC (31.0-37.0) g/dL RDW (11.5-15.5) % Neutrophils # (1.3-7.7) k/uL APTT 37.5 H 36.3 H (22.0-30.0) sec Sodium (137-145) mmol/L Chloride (98-107) mmol/L Carbon Dioxide (22-30) mmol/L BUN (7-17) mg/dL Creatinine (0.52-1.04) mg/dL Glucose (74-99) mg/dL POC Glucose (mg/dL) 309 H (75-99) mg/dL 04/04/17 04/04/17 04/04/17 Range/Units 00:45 05:41 05:41 RBC 2.93 L (3.80-5.40) m/uL Hgb 8.6 L (11.4-16.0) gm/dL Hct 28.7 L (34.0-46.0) % MCHC 29.9 L (31.0-37.0) g/dL RDW 18.9 H (11.5-15.5) % Neutrophils # 8.4 H (1.3-7.7) k/uL APTT 30.6 H (22.0-30.0) sec Sodium 133 L (137-145) mmol/L Chloride 97 L (98-107) mmol/L Carbon Dioxide 21 L (22-30) mmol/L BUN 58 H (7-17) mg/dL Creatinine 7.89 H* (0.52-1.04) mg/dL Glucose 183 H (74-99) mg/dL POC Glucose (mg/dL) (75-99) mg/dL 04/04/17 04/04/17 Range/Units 06:07 11:47 RBC (3.80-5.40) m/uL Hgb (11.4-16.0) gm/dL Hct (34.0-46.0) % MCHC (31.0-37.0) g/dL RDW (11.5-15.5) % Neutrophils # (1.3-7.7) k/uL APTT (22.0-30.0) sec Sodium (137-145) mmol/L Chloride (98-107) mmol/L Carbon Dioxide (22-30) mmol/L BUN (7-17) mg/dL Creatinine (0.52-1.04) mg/dL Glucose (74-99) mg/dL POC Glucose (mg/dL) 217 H 215 H (75-99) mg/dL Assessment and Plan Plan: Assessment and plan #1 chest pressure and heaviness with evidence of EKG changes and abnormal troponins, suggesting non-Q-wave myocardial infarction. #2 known history of coronary artery disease with prior bypass surgery and PCI. Patient underwent PTCA and stenting of the ramus intermediate, high first obtuse marginal branch in April, subsequent to that she did have a heart cath in June medical therapy advised at that time. #3 hypertension #4 hyperlipidemia #5 diabetes #6 end-stage renal disease on hemodialysis #7 Frequent episodes of hypotension. Plan We will continue the patient on her current medications. She is scheduled to undergo dialysis today. Plan for possible discharge home in 24 hours if stable. DNP note has been reviewed, I agree with a documented findings and plan of care. Patient was seen and examined.
[2017-04-04 16:44] LABS: Glucose,Whole Blood 167 mg/dL (75-99)
--- NOTE | 2017-04-04 18:07 | P.PN ---
Subjective Progress Note Date: 04/04/17 This is a 61-year-old female with a known history of myocardial infarction, coronary artery disease with previous CABG and cardiac stent. Also history of diabetes mellitus, hypertension, hyperlipidemia, chronic kidney disease requiring hemodialysis on Sunday. She's had multiple admissions because of hypotension and bradycardia during dialysis. However, yesterday patient had sharp chest pain that radiated from the left to the right side of her chest. With associated symptoms of shortness of breath nausea and diaphoresis. She took a nitro which did help relieve the symptoms slightly. However, the chest pain did come back very sharp and patient was concerned about another heart attack. She presented to the emergency room was started on IV heparin. Troponin was 0.08, 1.8 and 3.5. She was diagnosed with a non-Q- wave [place]. She also is having EKG changes which showed sinus tachycardia with a lateral ST depression. Cardiology is evaluating patient closely and have decided to take patient for a heart catheterization tomorrow. Chest x-ray reveals persistent diffuse bilateral interstitial prominence which can be seen in the setting of mild interstitial edema or chronic interstitial lung disease. Patient denies any vomiting, bowel movement changes or urinary symptoms. Still dealing with a cough since her pneumonia. However that has improved. She had 1 more dose of Levaquin which would have been her second round of antibiotics. Again she is afebrile. 04/03/2017 patient had another episode of chest pain last night. She was given Tylenol. It did help. She is scheduled for heart catheterization this afternoon. She has any shortness of breath. Denies any nausea or vomiting. Is still reporting productive cough with yellowish to greenish sputum. Denies any nausea or vomiting. Denies any burning with urination. Had hemodialysis yesterday 04/04/2017 patient is alert and oriented 3 she had hemodialysis today however session was cut short due to hypotension patient was unable to finish dialysis today. Nephrology will try another session of hemodialysis tomorrow. Otherwise patient is doing well there is no new episodes of chest pain since cardiac catheterization there is no shortness of breath no cough no nausea or vomiting no abdominal pain and no urinary symptoms Objective - Vital Signs Vital signs: Vital Signs Temp 96.0 F L 04/04/17 08:00 Pulse 85 04/04/17 16:00 Resp 18 11/15/17 06:53 BP 90/55 04/04/17 16:00 Pulse Ox 96 04/04/17 16:00 Intake & Output 04/03/17 04/04/17 04/04/17 18:59 06:59 18:59 Intake Total 289.84 456 Output Total 0 0 Balance 289.84 456 Weight 82 kg 70.45 kg Intake: IV 171.84 Intake, IV Titration 0 Amount Sodium Chloride 0.9% 1, 0 000 ml @ 50 mls/hr IV . Q20H [facility] Rx#:[id number] Oral 118 456 Output: Urine 0 0 Other: Voiding Method Toilet Bedpan Bedpan # Voids 0 # Bowel Movements 1 - Exam In general patient is alert and oriented 3 in no apparent distress HEENT head normocephalic and atraumatic Neck is supple no JVD no goiter no lymphadenopathy Chest exam reveals a few scattered crackles no wheezing Cardiac exam reveals regular heart sounds no gallops no murmurs Abdomen is soft nontender no organomegaly Extremity exam reveals no edema no cyanosis or clubbing - Labs CBC & Chem 7: 04/04/17 05:41 04/04/17 05:41 Labs: Abnormal Lab Results - Last 24 Hours (Table) 04/03/17 04/03/17 04/03/17 Range/Units 18:14 20:00 20:38 RBC (3.80-5.40) m/uL Hgb (11.4-16.0) gm/dL Hct (34.0-46.0) % MCHC (31.0-37.0) g/dL RDW (11.5-15.5) % Neutrophils # (1.3-7.7) k/uL APTT 45.5 H 37.5 H (22.0-30.0) sec Sodium (137-145) mmol/L Chloride (98-107) mmol/L Carbon Dioxide (22-30) mmol/L BUN (7-17) mg/dL Creatinine (0.52-1.04) mg/dL Glucose (74-99) mg/dL POC Glucose (mg/dL) 309 H (75-99) mg/dL 04/03/17 04/04/17 04/04/17 Range/Units 22:00 00:45 05:41 RBC 2.93 L (3.80-5.40) m/uL Hgb 8.6 L (11.4-16.0) gm/dL Hct 28.7 L (34.0-46.0) % MCHC 29.9 L (31.0-37.0) g/dL RDW 18.9 H (11.5-15.5) % Neutrophils # 8.4 H (1.3-7.7) k/uL APTT 36.3 H 30.6 H (22.0-30.0) sec Sodium (137-145) mmol/L Chloride (98-107) mmol/L Carbon Dioxide (22-30) mmol/L BUN (7-17) mg/dL Creatinine (0.52-1.04) mg/dL Glucose (74-99) mg/dL POC Glucose (mg/dL) (75-99) mg/dL 04/04/17 04/04/17 04/04/17 Range/Units 05:41 06:07 11:47 RBC (3.80-5.40) m/uL Hgb (11.4-16.0) gm/dL Hct (34.0-46.0) % MCHC (31.0-37.0) g/dL RDW (11.5-15.5) % Neutrophils # (1.3-7.7) k/uL APTT (22.0-30.0) sec Sodium 133 L (137-145) mmol/L Chloride 97 L (98-107) mmol/L Carbon Dioxide 21 L (22-30) mmol/L BUN 58 H (7-17) mg/dL Creatinine 7.89 H* (0.52-1.04) mg/dL Glucose 183 H (74-99) mg/dL POC Glucose (mg/dL) 217 H 215 H (75-99) mg/dL 04/04/17 Range/Units 16:37 RBC (3.80-5.40) m/uL Hgb (11.4-16.0) gm/dL Hct (34.0-46.0) % MCHC (31.0-37.0) g/dL RDW (11.5-15.5) % Neutrophils # (1.3-7.7) k/uL APTT (22.0-30.0) sec Sodium (137-145) mmol/L Chloride (98-107) mmol/L Carbon Dioxide (22-30) mmol/L BUN (7-17) mg/dL Creatinine (0.52-1.04) mg/dL Glucose (74-99) mg/dL POC Glucose (mg/dL) 167 H (75-99) mg/dL Assessment and Plan Plan: 1. Acute non-Q wave myocardial infarction: Patient had elevated troponin and EKG changes with chest pain. Patient is currently on IV heparin. Aspirin 81 mg daily. Patient scheduled heart catheterization today 2. End-stage renal disease on hemodialysis Sunday. Nephrology following. Had hemodialysis yesterday 3. Essential hypertension, with episodes of hypotension during hemodialysis will instruct nurse to hold Coreg on the morning of dialysis 4. Hyperlipidemia 5. Diabetes mellitus 2: Hyperglycemia with blood sugars near 300 secondary to prednisone in which she received for the IV dye for the heart cath. Also there is dextrose in the IV fluids for the heparin. Continue to cover with sliding scale 6. Anemia of chronic kidney disease. Patient reports taking Procrit injections with her dialysis. Continue to monitor hemoglobin 7. Episodes of hypotension patient on Midodrine before dialysis 8. Recent pneumonia: No pneumonia on chest x-ray. Monitor patient off of antibiotics. Patient needed 2 rounds of antibiotics. 9. GI prophylaxis Protonix and DVT prophylaxis IV heparin
--- NOTE | 2017-04-04 19:24 | PN ---
PROGRESS NOTE Patient is seen for followup for end-stage renal disease. She was scheduled for hemodialysis today as inpatient. Her blood pressure dropped down significantly in the 70s and we were not able to dialyze her. Patient did have her midodrine prior to her treatment and since her pressure was not improving, her treatment was discontinued. The patient denies any chest pain. She denies any shortness of breath. EXAMINATION: Early this morning blood pressure was 94/50, heart rate 85 per minute. She is afebrile. Examination of the heart S1, S2. Examination of the lungs bilateral breath sounds are heard. Abdomen is soft, nontender. Examination of the lower extremities shows no evidence of edema. [employer] exam is grossly intact. LAB: Show sodium 133, potassium 4.9, hemoglobin 8.6 g/dL. ASSESSMENT: 1. End-stage renal disease, on hemodialysis on a Sunday, Sunday, Sunday schedule. 2. Coronary artery disease with non ST elevation myocardial infarction status post cardiac catheterization and coronary stenting for restenoses of recent angioplasty and stent placement. 3. Hypotension maintained on midodrine. Will repeat hemodialysis in a.m. We will have to decrease the goal of ultrafiltration. 4. Anemia of chronic disease. No active bleeding noted. The patient is maintained on Aranesp. 5. Chronic kidney disease mineral bone disorder maintained on Sensipar. 6. Diabetes. 7. Hyperuricemia, currently on allopurinol. PLAN: Repeat hemodialysis in a.m. MMMECCAL / SÁNCHEZN: [id number] /
[2017-04-04] MEDS: ATORVASTATIN 40 MG TAB PO SCH (20:28)
[2017-04-04] MEDS: SERTRALINE 50 MG TAB PO SCH (20:28)
[2017-04-04] MEDS: CLOPIDOGREL 75 MG TAB PO SCH (20:28)
[2017-04-04] MEDS: CINACALCET 30 MG TAB PO SCH (20:28)
[2017-04-04] MEDS: MONTELUKAST 10 MG TAB PO SCH (20:28)
[2017-04-04 20:35] LABS: Glucose,Whole Blood 129 mg/dL (75-99)
[2017-04-04] MEDS: INSULIN DETEMIR 100 UNIT/ML 10 ML VIAL SQ SCH (22:01)
[2017-04-05 00:01] VITALS: RESP 16
[2017-04-05 05:31] LABS: Glucose,Whole Blood 136 mg/dL (75-99)
[2017-04-05 06:07] LABS: Anisocytosis Moderate; Basophils # (A) 0.1 k/uL (0-0.2); Basophils % (A) 1 %; CH 28.4; CHCM 29.8; Eosinophils # (A) 0.1 k/uL (0-0.7); Eosinophils % (A) 1 %; HCT 26.5 % (34.0-46.0); HDW 2.65; HGB 8.4 gm/dL (11.4-16.0); Hypochromasia Marked; Luc # (Auto) 0.06; Luc % (Auto) 1; Lymphocytes # (A) 1.6 k/uL (1.0-4.8); Lymphocytes % (A) 18 %; MCH 30.3 pg (25.0-35.0); MCHC 31.6 g/dL (31.0-37.0); MCV 95.8 fL (80.0-100.0); Macrocytosis Slight; Mean Platelet Volume 8.4; Monocytes # (A) 0.4 k/uL (0-1.0); Monocytes % (A) 4 %; Neutrophils # (A) 6.7 k/uL (1.3-7.7); Neutrophils % (A) 76 %; RBC 2.77 m/uL (3.80-5.40); WBC 8.9 k/uL (3.8-10.6); WBC (Perox) 9.56
[2017-04-05] MEDS: INSULIN ASPART 100 UNIT/ML 1 ML 10 ML VIAL SQ SCH ×2 (06:07→14:00)
[2017-04-05 06:39] LABS: Calcium 8.6 mg/dL (8.4-10.2); Potassium 4.6 mmol/L (3.5-5.1); Total Bilirubin 0.3 mg/dL (0.2-1.3); Total Protein 5.4 g/dL (6.3-8.2)
[2017-04-05] MEDS: ASPIRIN 81 MG PO SCH (08:55)
[2017-04-05] MEDS: PANTOPRAZOLE 40 MG TABLET PO SCH (08:55)
[2017-04-05] MEDS: ALLOPURINOL 100 MG TAB PO SCH (08:55)
[2017-04-05] MEDS: GABAPENTIN 100 MG CAP PO SCH (08:55)
[2017-04-05] MEDS ORDERED: MIDODRINE 5 MG TAB PO STA (08:57)
[2017-04-05 09:01] VITALS: TEMP 96.4
--- NOTE | 2017-04-05 09:44 | P.PN ---
Subjective Patient is seen in follow-up for end-stage renal disease. She is maintained on hemodialysis on a Sunday schedule. She has history of coronary artery disease with multiple interventions in the past. She underwent cardiac catheterization and coronary stenting for restenosis of recent stent in the ramus intermedius. She became hypotensive yesterday and could not complete her hemodialysis treatment. She is currently seen while receiving hemodialysis. Her blood pressures better. She denies any significant chest pain or shortness of breath. Oral intake is fair. Vital signs are stable. General: The patient appeared well nourished and normally developed. HEENT: Head exam is unremarkable. Neck is without jugular venous distension. LUNGS: Lungs are clear to auscultation and percussion. Breath sounds decreased. HEART: Rate and Rhythm are regular. First and second heart sounds normal. No murmurs, rubs or gallops. ABDOMEN: Abdominal exam reveals normal bowel sounds. Non-tender and non- distended. No evidence of peritonitis. EXTREMITITES: No clubbing, cyanosis, or edema. Objective - Vital Signs Vital signs: Vital Signs Temp 96.4 F L 04/05/17 08:00 Pulse 58 L 04/05/17 08:00 Resp 16 04/05/17 04:00 BP 90/45 04/05/17 08:00 Pulse Ox 97 04/05/17 08:00 Intake & Output 04/04/17 04/05/17 04/05/17 18:59 06:59 18:59 Intake Total 456 20 Output Total 0 Balance 456 20 Weight 84.1 kg Intake: IV 20 0.9% NS FLUSH 20 Intake, IV Titration 0 Amount Sodium Chloride 0.9% 1, 0 000 ml @ 50 mls/hr IV . Q20H [facility] Rx#:[id number] Oral 456 Output: Urine 0 Other: Voiding Method Bedpan Toilet - Labs CBC & Chem 7: 04/05/17 05:49 04/05/17 05:49 Labs: Abnormal Lab Results - Last 24 Hours (Table) 04/04/17 04/04/17 04/04/17 Range/Units 11:47 16:37 20:33 RBC (3.80-5.40) m/uL Hgb (11.4-16.0) gm/dL Hct (34.0-46.0) % RDW (11.5-15.5) % Plt Count (150-450) k/uL Sodium (137-145) mmol/L Carbon Dioxide (22-30) mmol/L BUN (7-17) mg/dL Creatinine (0.52-1.04) mg/dL Glucose (74-99) mg/dL POC Glucose (mg/dL) 215 H 167 H 129 H (75-99) mg/dL Total Protein (6.3-8.2) g/dL Albumin (3.5-5.0) g/dL 04/05/17 04/05/17 04/05/17 Range/Units 05:30 05:49 05:49 RBC 2.77 L (3.80-5.40) m/uL Hgb 8.4 L (11.4-16.0) gm/dL Hct 26.5 L (34.0-46.0) % RDW 20.0 H (11.5-15.5) % Plt Count 146 L (150-450) k/uL Sodium 132 L (137-145) mmol/L Carbon Dioxide 19 L (22-30) mmol/L BUN 55 H (7-17) mg/dL Creatinine 7.10 H* (0.52-1.04) mg/dL Glucose 112 H (74-99) mg/dL POC Glucose (mg/dL) 136 H (75-99) mg/dL Total Protein 5.4 L (6.3-8.2) g/dL Albumin 3.2 L (3.5-5.0) g/dL Assessment and Plan Plan: Assessment: #1. End-stage renal disease maintained on hemodialysis on a Sunday schedule. #2. Non-ST elevated myocardial infarction status post cardiac catheterization and stenting for restenosis of ramus intermedius. #3. Hypotension maintained on midodrine. #4. Anemia of chronic kidney disease maintained on Aranesp. #5. Chronic kidney disease mineral bone disease. #6. Hyperuricemia maintained on allopurinol. #7. Insulin-dependent diabetes mellitus. Plan: Potential discharge after dialysis today. She will resume hemodialysis at her outpatient schedule on Sunday schedule. Check phosphorus level.
[2017-04-05 11:30] LABS: Glucose,Whole Blood 136 mg/dL (75-99)
[2017-04-05 12:09] VITALS: BP 115/41; PULSE 54
--- NOTE | 2017-04-05 12:13 | LTR ---
April 03, [address] Campos: I performed cardiac catheterization, coronary angioplasty and stenting on Mrs Mcqueen at [facility] on April 03 and a full copy of procedure note will be forwarded to you. In brief she was found to have significant in-stent stenosis of the ramus intermedius and received successful stenting of that vessel using two drug eluting stents. I am hopeful that this procedure will stabilize her status. Thank you again for allowing me to participate in her care. Please feel free to call for any questions. Sincerely, ALEJANDRO / IJN: [id number] /
--- NOTE | 2017-04-05 12:49 | P.DS ---
Providers Date of admission: 04/01/17 23:45 Expected date of discharge: 04/05/17 Attending physician: Kyle Campos Consults: 04/01/17 23:45 Consult Physician Routine Consulting Provider: Jose Guadalupe Braun Consult Reason/Comments: dialysis patient Do you want consulting provider notified?: Yes Consult Physician Routine Consulting Provider: Lino Fernandez Consult Reason/Comments: chest pain Do you want consulting provider notified?: Yes 04/03/17 13:51 Consult Physician Routine Consulting Provider: [facility] Consult Reason/Comments: Post Interventional patient Do you want consulting provider notified?: Already Contacted Primary care physician: [facility] Course: Discharge diagnosis This is a 61-year-old female with a known history of myocardial infarction, coronary artery disease with previous CABG and cardiac stent. Also history of diabetes mellitus, hypertension, hyperlipidemia, chronic kidney disease requiring hemodialysis on Sunday. She's had multiple admissions because of hypotension and bradycardia during dialysis. However, yesterday patient had sharp chest pain that radiated from the left to the right side of her chest. With associated symptoms of shortness of breath nausea and diaphoresis. She took a nitro which did help relieve the symptoms slightly. However, the chest pain did come back very sharp and patient was concerned about another heart attack. She presented to the emergency room was started on IV heparin. Troponin was 0.08, 1.8 and 3.5. She was diagnosed with a non-Q- wave OR. She also is having EKG changes which showed sinus tachycardia with a lateral ST depression. Cardiology is evaluating patient closely and have decided to take patient for a heart catheterization tomorrow. Chest x-ray reveals persistent diffuse bilateral interstitial prominence which can be seen in the setting of mild interstitial edema or chronic interstitial lung disease. Patient denies any vomiting, bowel movement changes or urinary symptoms. Still dealing with a cough since her pneumonia. However that has improved. She had 1 more dose of Levaquin which would have been her second round of antibiotics. Again she is afebrile. Patient was diagnosed with a non-Q-wave OR. Seen by cardiology. Underwent heart catheterization and coronary angioplasty with successful stenting of the ramus intermedius due to significant in-stent restenosis of the ramus intermedius. Cardiology had recommended to continue her aspirin, Plavix, statin and beta luis. Beta luis was discontinued yesterday because of hypotension during dialysis. Dialysis treatment had to be discontinued before completion. Patient was scheduled again today for dialysis. She was able to tolerate the treatment well with no hypotension. Discussed case with cardiology. They have cleared her for discharge. Discussed case with cardiology and at this time we will keep her on Coreg 3.125 mg twice a day when necessary for high blood pressure, which is the way she was taking it at home. Patient will follow-up with cardiology as scheduled. She's follow-up with Dr. Campos in 1 week. And she is continue her same dialysis schedule Sunday. Patient is medical stable for discharge. Please refer to chart for any further details. Patient Condition at Discharge: Stable Plan - Discharge Summary Discharge Rx Participant: No New Discharge Prescriptions: Continue Gabapentin [Neurontin] 100 mg PO BID Allopurinol [Zyloprim] 100 mg PO DAILY Nitroglycerin Sl Tabs [Nitrostat] 0.4 mg SUBLINGUAL Q5M PRN #25 tab PRN Reason: Chest Pain Omeprazole [PriLOSEC] 20 mg PO BID Insulin Glargine [Lantus] 35 unit SQ HS Mv-Min/Vit C/Glu/Karla HCl/Hc124 [Airborne Tablet Chewable] 1 tab PO QID PRN PRN Reason: IMMUNE HEALTH Loperamide [Imodium] 2 mg PO QID PRN PRN Reason: Diarrhea Sertraline [Zoloft] 50 mg PO HS Insulin Aspart [NovoLOG (formulary)] See Protocol SQ AC-TID Cinacalcet HCl [Sensipar] 30 mg PO HS Montelukast [Singulair] 10 mg PO HS #30 tab Carvedilol [Coreg] 3.125 mg PO BID PRN PRN Reason: HIGH BLOOD PRESSURE Midodrine [ProAmatine] 10 mg PO MOWEFR Atorvastatin [Lipitor] 40 mg PO HS Aspirin [Adult Low Dose Aspirin EC] 81 mg PO DAILY #30 tablet. Clopidogrel [Plavix] 75 mg PO HS #30 tab Discontinued Levofloxacin [Levaquin] 500 mg PO Q48H tab Discharge Medication List Allopurinol [Zyloprim] 100 mg PO DAILY 11/15/14 [History] Gabapentin [Neurontin] 100 mg PO BID 11/15/14 [History] Nitroglycerin Sl Tabs [Nitrostat] 0.4 mg SUBLINGUAL Q5M PRN #25 tab 11/19/14 [Rx ] Omeprazole [PriLOSEC] 20 mg PO BID 01/31/15 [History] Insulin Glargine [Lantus] 35 unit SQ HS 03/03/15 [History] Loperamide [Imodium] 2 mg PO QID PRN 03/03/15 [History] Mv-Min/Vit C/Glu/Karla HCl/Hc124 [Airborne Tablet Chewable] 1 tab PO QID PRN 03/03 [History] Sertraline [Zoloft] 50 mg PO HS 03/03/15 [History] Cinacalcet HCl [Sensipar] 30 mg PO HS 05/06/16 [History] Insulin Aspart [NovoLOG (formulary)] See Protocol SQ AC-TID 05/06/16 [History] Montelukast [Singulair] 10 mg PO HS #30 tab 06/30/16 [Rx] Atorvastatin [Lipitor] 40 mg PO HS 03/19/17 [History] Carvedilol [Coreg] 3.125 mg PO BID PRN 03/19/17 [History] Midodrine [ProAmatine] 10 mg PO MOWEFR 03/19/17 [History] Aspirin [Adult Low Dose Aspirin EC] 81 mg PO DAILY #30 tablet. 04/05/17 [Rx] Clopidogrel [Plavix] 75 mg PO HS #30 tab 04/05/17 [Rx] Follow up Appointment(s)/Referral(s): Song Rothman MD [STAFF PHYSICIAN] - 04/17/17 4:15 pm Kyle Campos MD [Primary Care Provider] - 1 Week Activity/Diet/Wound Care/Special Instructions: Diet: cardiac, renal, diabetic Activity: as tolerated Discharge Disposition: HOME SELF-CARE
--- NOTE | 2017-04-05 21:13 | CONS ---
CONSULTATION Mrs. Mcqueen underwent stenting of circumflex performed by Dr. Rothman 48 hours ago. She had dialysis yesterday, but because of hypertension, it was held. She is getting additional dialysis today. She is asymptomatic. No chest pain. Right groin is clean and dry. Pulses good. Vital signs are stable. The blood pressure is 110/70. S1, S2 heard normally. Short systolic murmur noted. LUNGS: Clear. ABDOMEN AND LOWER EXTREMITIES: Unchanged. PLAN: Continue current medications. Following dialysis. After she is up and about, she can be discharged and see Dr. Rothman in 7 to 10 days. MMODL / IJN: [id number] /
== END 2017-04-05 15:10 | disposition home or self-care (01) | DRG 246 ==
LOC: EC 21:10 → 6SEL 23:45
PROVIDERS: ADMIT Internal Medicine; ATTEND Internal Medicine
PROC: 5A1D70Z Performance of Urinary Filtration, Intermittent, Less than 6 Hours Per Day (ICD-10-PCS; 2017-04-02)
PROC: B211YZZ Fluoroscopy of Multiple Coronary Arteries using Other Contrast (ICD-10-PCS; 2017-04-03)
PROC: B212YZZ Fluoroscopy of Single Coronary Artery Bypass Graft using Other Contrast (ICD-10-PCS; 2017-04-03)
PROC: 027035Z Dilation of Coronary Artery, One Artery with Two Drug-eluting Intraluminal Devices, Percutaneous Approach (ICD-10-PCS; principal; 2017-04-03 12:00)
PROC: 4A023N7 Measurement of Cardiac Sampling and Pressure, Left Heart, Percutaneous Approach (ICD-10-PCS; 2017-04-03 12:00)
DX: I21.4 Non-ST elevation (NSTEMI) myocardial infarction (principal); N18.6 End stage renal disease; I12.0 Hypertensive chronic kidney disease with stage 5 chronic kidney disease or end stage renal disease; T82.855A Stenosis of coronary artery stent, initial encounter; I08.1 Rheumatic disorders of both mitral and tricuspid valves; E11.22 Type 2 diabetes mellitus with diabetic chronic kidney disease; I95.3 Hypotension of hemodialysis; E11.40 Type 2 diabetes mellitus with diabetic neuropathy, unspecified; E87.5 Hyperkalemia; D63.1 Anemia in chronic kidney disease; E20.9 Hypoparathyroidism, unspecified; E78.5 Hyperlipidemia, unspecified; F32.9 Major depressive disorder, single episode, unspecified; I25.10 Atherosclerotic heart disease of native coronary artery without angina pectoris; R05 Cough; I25.2 Old myocardial infarction; M10.9 Gout, unspecified; M89.9 Disorder of bone, unspecified; T38.0X5A Adverse effect of glucocorticoids and synthetic analogues, initial encounter; E07.9 Disorder of thyroid, unspecified; K64.9 Unspecified hemorrhoids; E11.65 Type 2 diabetes mellitus with hyperglycemia; E87.70 Fluid overload, unspecified; Z79.4 Long term (current) use of insulin; Z79.82 Long term (current) use of aspirin; Z79.899 Other long term (current) drug therapy; Z79.02 Long term (current) use of antithrombotics/antiplatelets; Z99.2 Dependence on renal dialysis; Z95.1 Presence of aortocoronary bypass graft; Z95.5 Presence of coronary angioplasty implant and graft; Z82.49 Family history of ischemic heart disease and other diseases of the circulatory system; Z88.5 Allergy status to narcotic agent; Z88.0 Allergy status to penicillin; Z88.8 Allergy status to other drugs, medicaments and biological substances; Z91.048 Other nonmedicinal substance allergy status; Z91.013 Allergy to seafood
CPT/HCPCS: 36415; 71020; 80048; 80053; 80061; 82550; 82553; 83036; 83735; 84100; 84484; 85025; 85347; 85379; 85610; 85730; 86705; 86706; 87340; 90935; 93005; 93459; 96374; 99285

== ENCOUNTER 2017-05-28 11:10 | Inpatient (IN) | payer MEDICARE, BC ==
[2017-05-28] MEDS ORDERED: IPRATROPIUM-ALBUTEROL 3 ML NEB INHALATION STA (12:08)
[2017-05-28] MEDS ORDERED: SODIUM CHLORIDE 0.9% 500 ML IV STA (12:12)
--- NOTE | 2017-05-28 12:14 | ED ---
General Adult HPI - General Chief complaint: Upper Respiratory Infection Stated complaint: Cough/Chest pain Time Seen by Provider: 05/28/17 11:15 Source: patient, RN notes reviewed Mode of arrival: wheelchair Limitations: no limitations - History of Present Illness Initial comments: This is a 62-year-old female who presents emergency Department complaining of a weeklong history of cough and nighttime fevers. Patient states she is coughing up some sputum. Patient denies any chest pain or palpitations. Patient states she has had no calf tenderness or leg swelling. Patient denies abdominal pain patient denies nausea vomiting diarrhea. Patient denies any lightheadedness or dizziness. Patient denies any headache or numbness or weakness. - Related Data Home Medications Medication Instructions Recorded Confirmed Allopurinol [Zyloprim] 100 mg PO DAILY 11/15/14 05/28/17 Gabapentin [Neurontin] 100 mg PO BID 11/15/14 05/28/17 Omeprazole [PriLOSEC] 20 mg PO BID 01/31/15 05/28/17 Insulin Glargine [Lantus] 35 unit SQ HS 03/03/15 05/28/17 Loperamide [Imodium] 2 mg PO QID PRN 03/03/15 05/28/17 Mv-Min/Vit C/Glu/Karla HCl/Hc124 1 tab PO QID PRN 03/03/15 05/28/17 [Airborne Tablet Chewable] Sertraline [Zoloft] 50 mg PO HS 03/03/15 05/28/17 Cinacalcet HCl [Sensipar] 30 mg PO HS 05/06/16 05/28/17 Insulin Aspart [NovoLOG See Protocol SQ AC-TID 05/06/16 05/28/17 (formulary)] Atorvastatin [Lipitor] 40 mg PO HS 03/19/17 05/28/17 Carvedilol [Coreg] 3.125 mg PO BID PRN 03/19/17 05/28/17 Midodrine HCl [ProAmatine] 10 mg PO BID 05/28/17 05/28/17 Previous Rx's Medication Instructions Recorded Nitroglycerin Sl Tabs [Nitrostat] 0.4 mg SUBLINGUAL Q5M PRN #25 tab 11/19/14 Montelukast [Singulair] 10 mg PO HS #30 tab 06/30/16 Aspirin [Adult Low Dose Aspirin EC] 81 mg PO DAILY #30 tablet. 04/05/17 Clopidogrel [Plavix] 75 mg PO HS #30 tab 04/05/17 Allergies Allergy/AdvReac Type Severity Reaction Status Date / Time adhesive Allergy Rash/Hives Verified 05/28/17 12:19 cephalexin monohydrate Allergy Rash/Hives Verified 05/28/17 12:19 [From Keflex] hydromorphone HCl Allergy Hallucinati Verified 05/28/17 12:19 [From Dilaudid] ons iodine Allergy Rash/Hives Verified 05/28/17 12:19 Penicillins Allergy Unknown Verified 05/28/17 12:19 Childhood povidone-iodine Allergy Unknown Verified 05/28/17 12:19 [From Betadine] shellfish derived [Shrimp] Allergy Rash/Hives Verified 05/28/17 12:19 soap [From Betadine] Allergy Unknown Verified 05/28/17 12:19 fentanyl AdvReac Unknown Verified 05/28/17 12:19 hydrocodone bitartrate AdvReac Itching Verified 05/28/17 12:19 [From Vicodin] midazolam [From Versed] AdvReac Unknown Verified 05/28/17 12:19 morphine AdvReac Hallucinati Verified 05/28/17 12:19 ons tramadol AdvReac Itching Verified 05/28/17 12:19 artifical sweetener AdvReac Unknown Uncoded 05/28/17 11:20 Review of Systems ROS Statement: Those systems with pertinent positive or pertinent negative responses have been documented in the HPI. ROS Other: All systems not noted in ROS Statement are negative. Past Medical History Past Medical History: Coronary Artery Disease (CAD), Diabetes Mellitus, Hyperlipidemia, Hypertension, Myocardial Infarction (CT), Renal Disease, Thyroid Disorder Additional Past Medical History / Comment(s): MIs, IDDM type II, GOUT R foot, diabetic neuropathy bilateral feet and now "all over", chronic ANEMIA, MITRAL and TRICUSID REGURGITATION, esrd gets hemodialysis [id number]., UTIs, bronchitis, hypoparathyroid, wears O2 at 2L/NC during dialysis only-has had bradycardia and hypotension during dialysis, hemorrhoids-have caused anemia in past, hyperkalemia Last Myocardial Infarction Date:: 07/06/16 History of Any Multi-Drug Resistant Organisms: None Reported Past Surgical History: Coronary Bypass/CABG, Heart Catheterization, Heart Catheterization With Stent Additional Past Surgical History / Comment(s): 07/05/16 cardiac cath-tx medially, PCI/STENTS, 3 VESSEL CABG, AV fistula R upper arm, colonoscopy- normal, bilateral cataract removal with lens implants, bilateral eye laser sx to remove fluid. Past Anesthesia/Blood Transfusion Reactions: Previous Problems w/ Anesthesia Additional Past Anesthesia/Blood Transfusion Reaction / Comment(s): POST OP DELIRIUM/AGITATION/PSYCHOSIS-RESOLVED. Pt states she had a problem with hypotension last time she received versed. Date of Last Stent Placement:: 05/08/16 Past Psychological History: Depression Smoking Status: Never smoker Past Alcohol Use History: None Reported Past Drug Use History: None Reported - Past Family History Mother Family Medical History: Diabetes Mellitus, Myocardial Infarction (CT), Thyroid Disorder Additional Family Medical History / Comment(s): CABG, gout, hypothyroid. Mother is 80yrs old. Sister(s) Family Medical History: Diabetes Mellitus, Thyroid Disorder Father Family Medical History: Diabetes Mellitus, Myocardial Infarction (CT) Additional Family Medical History / Comment(s): Father at the age of 67[address] a [address] General Exam - General Exam Comments Initial Comments: GENERAL: Patient is well-developed and well-nourished. Patient is nontoxic and well- hydrated and is in mild distress. ENT: Neck is soft and supple. No significant lymphadenopathy is noted. Oropharynx is clear. Moist mucous membranes. Neck has full range of motion without eliciting any pain. EYES: The sclera were anicteric and conjunctiva were pink and moist. Extraocular movements were intact and pupils were equal round and reactive to light. Eyelids were unremarkable. PULMONARY: Extremities some crackles in the left base CARDIOVASCULAR: There is a regular rate and rhythm without any murmurs gallops or rubs. ABDOMEN: Soft and nontender with normal bowel sounds. No palpable organomegaly was noted. There is no palpable pulsatile mass. SKIN: Skin is clear with no lesions or rashes and otherwise unremarkable. NEUROLOGIC: Patient is alert and oriented x3. Cranial nerves II through XII are grossly intact. Motor and sensory are also intact. Normal speech, volume and content. Symmetrical smile. MUSCULOSKELETAL: Normal extremities with adequate strength and full range of motion. No lower extremity swelling or edema. No calf tenderness. LYMPHATICS: No significant lymphadenopathy is noted PSYCHIATRIC: Normal psychiatric evaluation. Normal interpersonal interactions appears functionally intact in deals appropriately with others. No signs of depression. No signs of anxiety. Limitations: no limitations Course Vital Signs 05/28/17 05/28/17 05/28/17 11:18 12:39 12:40 Temperature 99.4 F Pulse Rate 90 78 74 Respiratory 20 18 Rate Blood Pressure 124/74 128/79 O2 Sat by Pulse 98 98 Oximetry 05/28/17 05/28/17 12:52 14:16 Temperature 98.5 F Pulse Rate 78 95 Respiratory 18 Rate Blood Pressure 117/67 O2 Sat by Pulse 98 Oximetry Medical Decision Making - Medical Decision Making EKG shows a normal sinus rhythm at 92 bpm MO interval is 152 QRS is 116 QT interval 366 QTC is 452. Patient's EKG showed T-wave inversions in leads 1 to aVL as well as V5 and V6 when compared to the patient's old EKG shows changes were seen and then as well.. I will back into room to reevaluate the patient and over with her the labs and when I indicated to her that her creatinine and potassium were very high she stated as probably because he missed dialysis on Sunday. Patient neglected to tell me she was a dialysis patient earlier when I asked her if she had any other medical problems. Patient had pulmonary edema on the chest x-ray. I treated the patient in the emergency department for high potassium I will admit the patient to Dr. Campos I will consult nephrology. I wrote admitting orders. - Lab Data Result diagrams: 05/28/17 12:25 05/28/17 14:00 Lab Results 05/28/17 05/28/17 05/28/17 Range/Units 12:25 12:25 12:25 WBC 10.2 (3.8-10.6) k/uL RBC 3.19 L (3.80-5.40) m/uL Hgb 9.7 L (11.4-16.0) gm/dL Hct 30.9 L (34.0-46.0) % MCV 96.7 (80.0-100.0) fL MCH 30.3 (25.0-35.0) pg MCHC 31.3 (31.0-37.0) g/dL RDW 17.4 H (11.5-15.5) % Plt Count 152 (150-450) k/uL Neutrophils % 82 % Lymphocytes % 9 % Monocytes % 4 % Eosinophils % 4 % Basophils % 0 % Neutrophils # 8.4 H (1.3-7.7) k/uL Lymphocytes # 0.9 L (1.0-4.8) k/uL Monocytes # 0.4 (0-1.0) k/uL Eosinophils # 0.4 (0-0.7) k/uL Basophils # 0.0 (0-0.2) k/uL Hypochromasia Slight Anisocytosis Slight Macrocytosis Slight PT (9.0-12.0) sec INR (<1.2) APTT (22.0-30.0) sec Sodium (137-145) mmol/L Potassium (3.5-5.1) mmol/L Chloride (98-107) mmol/L Carbon Dioxide (22-30) mmol/L Anion Gap mmol/L BUN (7-17) mg/dL Creatinine (0.52-1.04) mg/dL Est GFR (MDRD) Af Amer (>60 ml/min/1.73 sqM) Est GFR (MDRD) Non-Af (>60 ml/min/1.73 sqM) Glucose (74-99) mg/dL Calcium (8.4-10.2) mg/dL Total Bilirubin (0.2-1.3) mg/dL AST (14-36) U/L ALT (9-52) U/L Alkaline Phosphatase (38-126) U/L Total Creatine Kinase 62 (30-135) U/L CK-MB (CK-2) 2.8 H* (0.0-2.4) ng/mL CK-MB (CK-2) Rel Index 4.5 Troponin I 0.499 H* (0.000-0.034) ng/mL NT-Pro-B Natriuret Pep pg/mL Total Protein (6.3-8.2) g/dL Albumin (3.5-5.0) g/dL Influenza Type A RNA Not Detected (Not Detectd) Influenza Type B (PCR) Not Detected (Not Detectd) 05/28/17 05/28/17 05/28/17 Range/Units 12:25 14:00 14:00 WBC (3.8-10.6) k/uL RBC (3.80-5.40) m/uL Hgb (11.4-16.0) gm/dL Hct (34.0-46.0) % MCV (80.0-100.0) fL MCH (25.0-35.0) pg MCHC (31.0-37.0) g/dL RDW (11.5-15.5) % Plt Count (150-450) k/uL Neutrophils % % Lymphocytes % % Monocytes % % Eosinophils % % Basophils % % Neutrophils # (1.3-7.7) k/uL Lymphocytes # (1.0-4.8) k/uL Monocytes # (0-1.0) k/uL Eosinophils # (0-0.7) k/uL Basophils # (0-0.2) k/uL Hypochromasia Anisocytosis Macrocytosis PT 10.5 (9.0-12.0) sec INR 1.1 (<1.2) APTT 21.6 L (22.0-30.0) sec Sodium 142 (137-145) mmol/L Potassium 6.7 H* (3.5-5.1) mmol/L Chloride 102 (98-107) mmol/L Carbon Dioxide 15 L (22-30) mmol/L Anion Gap 25 mmol/L BUN 103 H* (7-17) mg/dL Creatinine 11.30 H* (0.52-1.04) mg/dL Est GFR (MDRD) Af Amer 4 (>60 ml/min/1.73 sqM) Est GFR (MDRD) Non-Af 3 (>60 ml/min/1.73 sqM) Glucose 134 H (74-99) mg/dL Calcium 9.2 (8.4-10.2) mg/dL Total Bilirubin 0.4 (0.2-1.3) mg/dL AST 23 (14-36) U/L ALT 36 (9-52) U/L Alkaline Phosphatase 134 H (38-126) U/L Total Creatine Kinase (30-135) U/L CK-MB (CK-2) (0.0-2.4) ng/mL CK-MB (CK-2) Rel Index Troponin I (0.000-0.034) ng/mL NT-Pro-B Natriuret Pep 31835 pg/mL Total Protein 6.6 (6.3-8.2) g/dL Albumin 3.9 (3.5-5.0) g/dL Influenza Type A RNA (Not Detectd) Influenza Type B (PCR) (Not Detectd) Critical Care Time Critical Care Time: Yes Total Critical Care Time: 35 Disposition Clinical Impression: Acute on chronic renal failure, Hyperkalemia, Dyspnea, Pulmonary edema Disposition: ADMITTED IP TO THIS HOSP Referrals: Kyle Campos MD [Primary Care Provider] - 1-2 days Time of Disposition: 15:27
[2017-05-28 12:40] LABS: Anisocytosis Slight; Basophils % (A) 0 %; Eosinophils # (A) 0.4 k/uL (0-0.7); Eosinophils % (A) 4 %; HCT 30.9 % (34.0-46.0); HGB 9.7 gm/dL (11.4-16.0); Hypochromasia Slight; Lymphocytes # (A) 0.9 k/uL (1.0-4.8); Lymphocytes % (A) 9 %; MCH 30.3 pg (25.0-35.0); MCHC 31.3 g/dL (31.0-37.0); MCV 96.7 fL (80.0-100.0); Macrocytosis Slight; Mean Platelet Volume 8.5; Monocytes # (A) 0.4 k/uL (0-1.0); Monocytes % (A) 4 %; Neutrophils # (A) 8.4 k/uL (1.3-7.7); Neutrophils % (A) 82 %; Platelet Count 152 k/uL (150-450); RBC 3.19 m/uL (3.80-5.40); RDW 17.4 % (11.5-15.5); WBC 10.2 k/uL (3.8-10.6)
[2017-05-28 13:21] LABS: Creatine Kinase MB 2.8 ng/mL (0.0-2.4); Troponin I 0.499 ng/mL (0.000-0.034)
--- NOTE | 2017-05-28 13:50 | XR ---
EXAMINATION TYPE: XR chest 2V DATE OF EXAM: 05/28/2017 COMPARISON: 03/23/2017 HISTORY: Productive cough TECHNIQUE: Frontal and lateral views of the chest are obtained. FINDINGS: There is a left basilar opacity that obscures the left costophrenic angle and retrocardiac airspace relating to a small pleural effusion on the lateral image and left basilar atelectasis. No focal airspace disease in the lateral image. Post CABG changes are seen of the chest with enlarged ca rdiac silhouette. Mild interstitial pulmonary edema and cephalization are noted. The osseous struct ures are intact. There is an exaggerated thoracic kyphosis and minimal degenerative changes of the th oracic spine. IMPRESSION: Small left pleural effusion, left basal atelectasis and mild coronary vascular congestio n/interstitial edema are likely on the basis of decompensated congestive heart failure.
[2017-05-28 14:23] LABS: INR 1.1 (<1.2); Prothrombin Time 10.5 sec (9.0-12.0)
[2017-05-28 14:35] LABS: Albumin 3.9 g/dL (3.5-5.0); Calcium 9.2 mg/dL (8.4-10.2); Total Bilirubin 0.4 mg/dL (0.2-1.3); Total Protein 6.6 g/dL (6.3-8.2)
[2017-05-28 14:43] LABS: Partial Thromboplastin Time 21.6 sec (22.0-30.0)
[2017-05-28 14:48] LABS: Potassium 6.7 mmol/L (3.5-5.1)
[2017-05-28] MEDS ORDERED: CALCIUM CHLORIDE 100 MG/ML 10 ML SYRINGE IVP STA (15:28)
[2017-05-28] MEDS ORDERED: INSULIN REGULAR 100 UNIT/ML VIAL IV ONE (15:29)
[2017-05-28] MEDS ORDERED: SODIUM POLYSTYRENE SULFONATE 15 GM/60 ML BOTTLE PO STA (15:29)
[2017-05-28] MEDS ORDERED: DEXTROSE 50%-WATER 50 ML SYRINGE IVP STA (15:29)
[2017-05-28] MEDS ORDERED: SODIUM BICARB 8.4% 50 ML SYR (1 MEQ/ML) IV ONE (15:30)
[2017-05-28] MEDS ORDERED: SODIUM CHLORIDE 0.9% 1,000 ML IV ONE (15:30)
[2017-05-28 21:45] LABS: Glucose,Whole Blood 150 mg/dL (75-99)
[2017-05-28] MEDS ORDERED: AIRBORNE PO PRN (22:07)
[2017-05-28] MEDS ORDERED: LOPERAMIDE 2 MG CAP PO PRN (22:07)
[2017-05-28] MEDS ORDERED: CARVEDILOL 3.125 MG TAB PO PRN (22:07)
[2017-05-28] MEDS ORDERED: NITROGLYCERIN SL TABS 0.4 MG TAB SUBLINGUAL PRN (22:07)
[2017-05-29] MEDS: INSULIN DETEMIR 100 UNIT/ML 10 ML VIAL SQ SCH ×2 (00:31→21:58)
[2017-05-29] MEDS: SERTRALINE 50 MG TAB PO SCH ×2 (00:31→21:36)
[2017-05-29 06:06] LABS: Glucose,Whole Blood 179 mg/dL (75-99)
[2017-05-29] MEDS: INSULIN ASPART 100 UNIT/ML 1 ML 10 ML VIAL SQ SCH ×4 (06:33→21:59)
[2017-05-29] MEDS: PANTOPRAZOLE 40 MG TABLET PO SCH ×2 (06:34→17:04)
[2017-05-29 06:49] LABS: Albumin 3.4 g/dL (3.5-5.0); Potassium 4.4 mmol/L (3.5-5.1); Total Bilirubin 0.3 mg/dL (0.2-1.3); Total Protein 5.6 g/dL (6.3-8.2)
[2017-05-29] MEDS: MIDODRINE 5 MG TAB PO SCH ×2 (07:48→15:54)
[2017-05-29] MEDS: ASPIRIN 81 MG PO SCH (07:48)
[2017-05-29] MEDS: GABAPENTIN 100 MG CAP PO SCH ×2 (07:48→21:36)
[2017-05-29] MEDS: ALLOPURINOL 100 MG TAB PO SCH (07:48)
[2017-05-29 07:50] LABS: Anisocytosis Slight; Basophils % (A) 0 %; Eosinophils # (A) 0.2 k/uL (0-0.7); Eosinophils % (A) 2 %; HCT 27.2 % (34.0-46.0); HGB 8.6 gm/dL (11.4-16.0); Lymphocytes # (A) 0.7 k/uL (1.0-4.8); Lymphocytes % (A) 10 %; MCH 30.7 pg (25.0-35.0); MCHC 31.7 g/dL (31.0-37.0); MCV 96.8 fL (80.0-100.0); Macrocytosis Slight; Mean Platelet Volume 7.5; Monocytes # (A) 0.3 k/uL (0-1.0); Monocytes % (A) 4 %; Neutrophils # (A) 6.3 k/uL (1.3-7.7); Neutrophils % (A) 84 %; Platelet Count 143 k/uL (150-450); RBC 2.81 m/uL (3.80-5.40); RDW 16.4 % (11.5-15.5); WBC 7.6 k/uL (3.8-10.6)
--- NOTE | 2017-05-29 10:58 | US ---
EXAMINATION TYPE: US venous doppler duplex LE BI DATE OF EXAM: 05/29/2017 10:51 AM COMPARISON: 07/14/2016 CLINICAL HISTORY: calf pain. SIDE PERFORMED: TECHNIQUE: The lower extremity deep venous system is examined utilizing real time linear array sonog natalia with graded compression, doppler sonography and color-flow sonography. VESSELS IMAGED: External Iliac Vein (EIV) Common Femoral Vein Deep Femoral Vein Greater Saphenous Vein * Femoral Vein Popliteal Vein Small Saphenous Vein * Proximal Calf Veins (* superficial vessels) Right Leg: Negative for DVT Left Leg: Negative for DVT IMPRESSION: 1. No diagnostic evidence of DVT.
[2017-05-29] MEDS: IPRATROPIUM-ALBUTEROL 3 ML NEB INHALATION SCH ×3 (11:57→21:05)
[2017-05-29 12:11] LABS: Glucose,Whole Blood 176 mg/dL (75-99)
--- NOTE | 2017-05-29 13:20 | CONS ---
CONSULTATION HISTORY: Ms. Mcqueen is a 62-year-old female, known history of coronary artery disease status post bypass grafting and percutaneous revascularization, history of end-stage renal disease on hemodialysis, who presented with symptoms of dyspnea and chest discomfort. The patient has missed her dialysis on Sunday and Sunday, was not feeling well, came in yesterday quite dyspneic and she had some chest discomfort. She is also complaining of some tingling in her lower extremities, which she had for a while. The patient has been having some cough as well. She was in [place] visiting her daughter between and and while at dialysis there she had an episode of dyspnea and chest pain, was admitted to the hospital, underwent cardiac catheterization, but no intervention was done according to her. The findings were similar to what were noted here in the past, although I do not have those details. The patient has no clear PND or orthopnea. She feels dizzy at times. No palpitations. No syncope. Her last cardiac catheterization was done in March of 2017 and at that time was found to have in-stent restenoses of the ramus intermedius and underwent re-stenting of that vessel. Her left ventricular systolic function in the past has been preserved. Her coronary risk factors are positive for diabetes, hypertension, hyperlipidemia, and family history of premature coronary disease. MEDICATIONS: At home included aspirin, Lipitor 40 mg daily, Coreg 3.125 mg twice a day, Sensipar, Plavix 75 mg daily, insulin, midodrine, Protonix, sertraline. REVIEW OF SYSTEMS: RESPIRATORY: She had dyspnea on exertion. Occasional cough. No wheezing. GI SYSTEM: No recent GI bleeding. No peptic ulcer disease. She feels nauseated at times. SYSTEM: She has no hematuria. She is on end-stage renal disease with minimal urinary output. NERVOUS SYSTEM: No history of seizure. PHYSICAL EXAMINATION: She is a 62-year-old female, alert, oriented, no apparent distress. Blood pressure 120/60 with a heart in the 90s. HEAD: Normocephalic. Eyes sclerae anicteric. NECK: Good carotid upstroke. No bruit. No jugular venous distention. LUNGS: Clear to auscultation. HEART: Regular rhythm S1, S2. No S3 with a systolic murmur at the apex. No diastolic murmur. ABDOMEN: Soft, nontender. EXTREMITIES: No edema. Decreased distal pulses. LAB DATA: Yesterday her BUN and creatinine were 103 and 11.3, today 56 and 7.5. She underwent dialysis yesterday. Her potassium was 6.7. Hemoglobin 8.6. Her troponin is 0.499 and her NT proBNP is 62,100. Her EKG revealed a sinus mechanism with a rate of 92, normal axis with nonspecific ST-T wave changes. No changes compared with the prior EKG. Her chest x-ray shows small left pleural effusion with some congestion. IMPRESSION: 1. Worsening dyspnea after the patient missed her dialysis. She is feeling better today. 2. Minimal elevation of troponin, does not reflect an acute coronary syndrome. 3. History of coronary disease with multiple stentings, most recently in March 2017. 4. According to the patient, she underwent cardiac catheterization recently and there was no evidence of significant progression of disease. I will try to obtain those records. 5. Status post bypass grafting. 6. Hypertension. 7. Hyperlipidemia. 8. Diabetes mellitus. 9. End-stage renal disease. RECOMMENDATIONS: From the cardiac standpoint, will continue on the present medical regimen. I will try to obtain her prior workup. Unfortunately, her prognosis remains quite guarded. Thank you for this consult. We will follow with you. MMODL / IJN: [id number] /
--- NOTE | 2017-05-29 13:52 | P.HPIM ---
History of Present Illness H&P Date: 05/29/17 Chief Complaint: Shortness of breath and cough 1 week This is a 62-year-old female with a known past medical history of end-stage renal disease on hemodialysis, diabetes mellitus, myocardial infarction, coronary artery disease with previous cardiac stents and coronary bypass grafting. Patient presents to the emergency room with complaints of cough and shortness of breath with nighttime fevers for about a week. Also complaining of pain in the lower extremities in the calf area with redness noted along the medial aspects of both legs coming up into the thighs. Patient reports no injury to the legs. She had missed her hemodialysis on Sunday due to her leg pain and cough. She presented to the emergency room for further evaluation and treatment. She required dialysis in the emergency room yesterday and again she' ll receive dialysis today. BNP was elevated at 62,100 troponin elevated at 0.499. Cardiology, nephrology and infectious disease has been consulted. Venous Doppler of the lower extremities are negative for DVT. ER report patient apparently had had some chest pain. However now she is not complaining of any chest pain. She denies any nausea or vomiting. Denies any bowel movement changes or urinary symptoms. Influenza screen was negative. EKG shows normal sinus rhythm. Chest x-ray small left pleural effusion, left basal atelectasis and mild coronary vascular congestion /interstitial edema likely on the basis of decompensated congestive heart failure. Review of Systems Please refer to HPI otherwise unremarkable Past Medical History Past Medical History: Coronary Artery Disease (CAD), Chest Pain / Angina, Diabetes Mellitus, Hyperlipidemia, Hypertension, Myocardial Infarction (LA), Renal Disease, Thyroid Disorder Additional Past Medical History / Comment(s): MIs, IDDM type II, GOUT R foot, diabetic neuropathy bilateral feet and now "all over", chronic ANEMIA, MITRAL and TRICUSID REGURGITATION, esrd gets hemodialysis [id number]., UTIs, bronchitis, hypoparathyroid, wears O2 at 2L/NC during dialysis only-has had bradycardia and hypotension during dialysis, hemorrhoids-have caused anemia in past, hyperkalemia Last Myocardial Infarction Date:: 07/06/16 History of Any Multi-Drug Resistant Organisms: None Reported Past Surgical History: Coronary Bypass/CABG, Heart Catheterization, Heart Catheterization With Stent Additional Past Surgical History / Comment(s): 07/05/16 cardiac cath-tx medially, PCI/STENTS, 3 VESSEL CABG, AV fistula R upper arm, colonoscopy- normal, bilateral cataract removal with lens implants, bilateral eye laser sx to remove fluid. Past Anesthesia/Blood Transfusion Reactions: Previous Problems w/ Anesthesia Additional Past Anesthesia/Blood Transfusion Reaction / Comment(s): POST OP DELIRIUM/AGITATION/PSYCHOSIS-RESOLVED. Pt states she had a problem with hypotension last time she received versed. Date of Last Stent Placement:: 05/08/16 Smoking Status: Never smoker - Past Family History Mother Family Medical History: Diabetes Mellitus, Myocardial Infarction (LA), Thyroid Disorder Additional Family Medical History / Comment(s): CABG, gout, hypothyroid. Mother is 80yrs old. Sister(s) Family Medical History: Diabetes Mellitus, Thyroid Disorder Father Family Medical History: Diabetes Mellitus, Myocardial Infarction (LA) Additional Family Medical History / Comment(s): Father at the age of 67yrs of a LA Medications and Allergies Home Medications Medication Instructions Recorded Confirmed Type Allopurinol [Zyloprim] 100 mg PO DAILY 11/15/14 05/28/17 History Gabapentin [Neurontin] 100 mg PO BID 11/15/14 05/28/17 History Nitroglycerin Sl Tabs [Nitrostat] 0.4 mg SUBLINGUAL Q5M PRN #25 tab 11/19/1401/05 Rx Omeprazole [PriLOSEC] 20 mg PO BID 01/31/15 05/28/17 History Insulin Glargine [Lantus] 35 unit SQ HS 03/03/15 05/28/17 History Loperamide [Imodium] 2 mg PO QID PRN 03/03/15 05/28/17 History Mv-Min/Vit C/Glu/Karla HCl/Hc124 1 tab PO QID PRN 03/03/15 05/28/17 History [Airborne Tablet Chewable] Sertraline [Zoloft] 50 mg PO HS 03/03/15 05/28/17 History Cinacalcet HCl [Sensipar] 30 mg PO HS 05/06/16 05/28/17 History Insulin Aspart [NovoLOG See Protocol SQ AC-TID 05/06/16 05/28/17 History (formulary)] Montelukast [Singulair] 10 mg PO HS #30 tab 06/30/16 05/28/17 Rx Atorvastatin [Lipitor] 40 mg PO HS 03/19/17 05/28/17 History Carvedilol [Coreg] 3.125 mg PO BID PRN 03/19/17 05/28/17 History Aspirin [Adult Low Dose Aspirin EC] 81 mg PO DAILY #30 tablet. 04/05/17 Rx Clopidogrel [Plavix] 75 mg PO HS #30 tab 04/05/17 05/28/17 Rx Midodrine HCl [ProAmatine] 10 mg PO BID 05/28/17 05/28/17 History Allergies Allergy/AdvReac Type Severity Reaction Status Date / Time adhesive Allergy Rash/Hives Verified 05/28/17 12:19 cephalexin monohydrate Allergy Rash/Hives Verified 05/28/17 12:19 [From Keflex] hydromorphone HCl Allergy Hallucinati Verified 05/28/17 12:19 [From Dilaudid] ons iodine Allergy Rash/Hives Verified 05/28/17 12:19 Penicillins Allergy Unknown Verified 05/28/17 12:19 Childhood povidone-iodine Allergy Unknown Verified 05/28/17 12:19 [From Betadine] shellfish derived [Shrimp] Allergy Rash/Hives Verified 05/28/17 12:19 soap [From Betadine] Allergy Unknown Verified 05/28/17 12:19 fentanyl AdvReac Unknown Verified 05/28/17 12:19 hydrocodone bitartrate AdvReac Itching Verified 05/28/17 12:19 [From Vicodin] midazolam [From Versed] AdvReac Unknown Verified 05/28/17 12:19 morphine AdvReac Hallucinati Verified 05/28/17 12:19 ons tramadol AdvReac Itching Verified 05/28/17 12:19 artifical sweetener AdvReac Unknown Uncoded 05/28/17 11:20 Physical Exam Vitals: Vital Signs Temp Pulse Pulse Resp BP BP Pulse Ox 05/29/17 11:40 99.5 F 93 18 93/54 93 L 05/29/17 07:48 97.6 F 96 18 90/56 96 05/29/17 04:00 97.5 F L 94 19 120/62 99 05/29/17 00:00 97.2 F L 98 17 137/74 98 05/28/17 20:00 97.9 F 67 18 138/74 100 05/28/17 18:28 98.3 F 88 18 117/66 99 05/28/17 18:00 98.3 F 88 18 117/66 100 05/28/17 17:35 87 18 124/61 99 05/28/17 16:05 89 18 118/58 99 05/28/17 16:00 89 18 117/61 99 05/28/17 15:00 88 18 115/50 98 05/28/17 14:16 98.5 F 95 18 117/67 98 Intake and Output 05/28/17 05/29/17 05/29/17 22:59 06:59 14:59 Intake Total 480 Balance 480 Intake: Oral 480 Other: Voiding Method Urinal Toilet # Voids 0 0 1 Weight 81.5 kg Head normocephalic Neck supple Lungs crackles right lower lobe with a few expiratory wheezing noted posteriorly in coarse breath sounds Heart regular rate and rhythm S1-S2, no rub or gallop Abdomen is soft nontender nondistended positive bowel sounds no hepatosplenomegaly Extremities tenderness with palpation of the lower extremities in the calf area. Patient does have redness streaking along the medial aspect of the right leg near her scar from her venous graft. Redness goes up into the thigh area. Evidence of dry skin. Neuro alert and orientated to 3 Results CBC & Chem 7: 05/29/17 05:57 05/29/17 05:57 Labs: Abnormal Lab Results - Last 24 Hours (Table) 05/28/17 05/28/17 05/28/17 Range/Units 14:00 14:00 21:43 RBC (3.80-5.40) m/uL Hgb (11.4-16.0) gm/dL Hct (34.0-46.0) % RDW (11.5-15.5) % Plt Count (150-450) k/uL Lymphocytes # (1.0-4.8) k/uL APTT 21.6 L (22.0-30.0) sec Potassium 6.7 H* (3.5-5.1) mmol/L Carbon Dioxide 15 L (22-30) mmol/L BUN 103 H* (7-17) mg/dL Creatinine 11.30 H* (0.52-1.04) mg/dL Glucose 134 H (74-99) mg/dL POC Glucose (mg/dL) 150 H (75-99) mg/dL Alkaline Phosphatase 134 H (38-126) U/L Total Protein (6.3-8.2) g/dL Albumin (3.5-5.0) g/dL 05/29/17 05/29/17 05/29/17 Range/Units 05:57 05:57 06:04 RBC 2.81 L (3.80-5.40) m/uL Hgb 8.6 L (11.4-16.0) gm/dL Hct 27.2 L (34.0-46.0) % RDW 16.4 H (11.5-15.5) % Plt Count 143 L (150-450) k/uL Lymphocytes # 0.7 L (1.0-4.8) k/uL APTT (22.0-30.0) sec Potassium (3.5-5.1) mmol/L Carbon Dioxide (22-30) mmol/L BUN 56 H (7-17) mg/dL Creatinine 7.50 H* (0.52-1.04) mg/dL Glucose 161 H (74-99) mg/dL POC Glucose (mg/dL) 179 H (75-99) mg/dL Alkaline Phosphatase (38-126) U/L Total Protein 5.6 L (6.3-8.2) g/dL Albumin 3.4 L (3.5-5.0) g/dL 05/29/17 Range/Units 12:10 RBC (3.80-5.40) m/uL Hgb (11.4-16.0) gm/dL Hct (34.0-46.0) % RDW (11.5-15.5) % Plt Count (150-450) k/uL Lymphocytes # (1.0-4.8) k/uL APTT (22.0-30.0) sec Potassium (3.5-5.1) mmol/L Carbon Dioxide (22-30) mmol/L BUN (7-17) mg/dL Creatinine (0.52-1.04) mg/dL Glucose (74-99) mg/dL POC Glucose (mg/dL) 176 H (75-99) mg/dL Alkaline Phosphatase (38-126) U/L Total Protein (6.3-8.2) g/dL Albumin (3.5-5.0) g/dL Thrombosis Risk Factor Assmnt - Choose All That Apply Any of the Below Risk Factors Present?: Yes Each Factor Represents 1 point: Obesity (BMI >25) Other Risk Factors: Yes Each Risk Factor Represents 2 Points: Age 61-74 years Other congenital or acquired thrombophilia - If yes, enter type in comment: No Thrombosis Risk Factor Assessment Total Risk Factor Score: 3 Thrombosis Risk Factor Assessment Level: Moderate Risk Assessment and Plan Assessment: 1. Acute systolic CHF exacerbation: Echo from November 2016 shows an EF of 40-45%. BNP elevated at 62,100. Patient received hemodialysis yesterday and will again today. Cardiology and nephrology following. Likely fluid overload due to missing hemodialysis on Sunday 2. Right lower extremity cellulitis: Patient has ALLERGY to penicillin and Keflex. Consult infectious disease for antibiotic recommendations. Doppler of bilateral lower extremities negative for DVT 3. Acute tracheobronchitis. No evidence of pneumonia on chest x-ray. Antibiotics per infectious disease 4. End stage renal disease on hemodialysis 5. Insulin-dependent diabetes mellitus 6. History of myocardial infarction and coronary disease with cardiac stent previous CABG 7. Anemia of chronic kidney disease. Check iron studies DVT prophylaxis subcu heparin Time with Patient: Greater than 30 (Greater than 50% of the total time spent in counseling and coordination of care.I performed an examination of the patient and discussed their management with the physician Tray Drier Operator. I have reviewed the Physician Tray Drier Operator's notes and agree with the documented findings and plan of care)
[2017-05-29 16:59] LABS: Glucose,Whole Blood 197 mg/dL (75-99)
--- NOTE | 2017-05-29 17:52 | ECHOF ---
Referral Reason:check EF MEASUREMENTS -------- HEIGHT: 165.1 cm WEIGHT: 81.2 kg BP: 93/54 RVIDd: 2.7 cm (< 3.3) IVSd: 1.0 cm (0.6 - 1.1) LVIDd: 6.8 cm (3.9 - 5.3) LVPWd: 1.0 cm (0.6 - 1.1) IVSs: 1.3 cm LVIDs: 5.7 cm LVPWs: 1.2 cm LAESV Index (A-L): 31.88 ml/m Ao Diam: 2.7 cm (2.0 - 3.7) AV Cusp: 1.4 cm (1.5 - 2.6) LA Diam: 5.1 cm (2.7 - 3.8) MV E Jass: 1.28 m/s MV DecT: 230 ms MV A Jass: 1.28 m/s MV E/A Ratio: 1.00 RAP: 5.00 mmHg RVSP: 46.75 mmHg FINDINGS -------- Sinus rhythm. This was a technically good study. The left ventricle is severely dilated. Left ventricular wall thickness is normal. Overall left v entricular systolic function is severely impaired with, an EF between 25 - 30 %. Basal inferior LV wall motion is akinetic. Basal inferoseptal LV wall motion is akinetic. Basal anteroseptal LV w all motion is akinetic. Mid inferior LV wall motion is akinetic. Mid inferoseptal LV wall motio n is akinetic. Mid anteroseptal LV wall motion is akinetic. Apical inferior LV wall motion is h ypokinetic. Apical septum LV wall motion is hypokinetic. The right ventricle is normal in size and function. LA is midly dilated 29-33ml/m2. RA appears enlarged. Aortic valve is trileaflet and is mildly thickened. There is no evidence of aortic regurgitation. There is no evidence of aortic stenosis. The mitral valve leaflets are mildly thickened. Mild mitral annular calcification present. Severe mitral regurgitation is present. Moderate tricuspid regurgitation present. There is mild pulmonary hypertension. The right ventric ular systolic pressure, as measured by Doppler, is 46.75mmHg. Trace/mild (physiologic) pulmonic regurgitation. The aortic root size is normal. Normal inferior vena cava with normal inspiratory collapse consistent with estimated right atrial pre ssure of 5 mmHg. The pericardium is normal. There is no pericardial effusion. CONCLUSIONS -------- 1. Sinus rhythm. 2. This was a technically good study. 3. The left ventricle is severely dilated. 4. Left ventricular wall thickness is normal. 5. Overall left ventricular systolic function is severely impaired with, an EF between 25 - 30 %. 6. Basal inferior LV wall motion is akinetic. 7. Basal inferoseptal LV wall motion is akinetic. 8. Basal anteroseptal LV wall motion is akinetic. 9. Mid inferior LV wall motion is akinetic. 10. Mid inferoseptal LV wall motion is akinetic. 11. Mid anteroseptal LV wall motion is akinetic. 12. Apical inferior LV wall motion is hypokinetic. 13. Apical septum LV wall motion is hypokinetic. 14. LA is midly dilated 29-33ml/m2. 15. RA appears enlarged. 16. Aortic valve is trileaflet and is mildly thickened. 17. The mitral valve leaflets are mildly thickened. 18. Mild mitral annular calcification present. 19. Severe mitral regurgitation is present. 20. Moderate tricuspid regurgitation present. 21. There is mild pulmonary hypertension. 22. The right ventricular systolic pressure, as measured by Doppler, is 46.75mmHg. 23. Trace/mild (physiologic) pulmonic regurgitation. 24. The aortic root size is normal. 25. There is no pericardial effusion. VACUUM PAN TENDER: Bart Rodriguez RDCS
[2017-05-29 19:29] LABS: Iron Saturation 10.36 (12.00-45.00)
[2017-05-29 20:52] LABS: Glucose,Whole Blood 159 mg/dL (75-99)
[2017-05-29] MEDS ORDERED: GELATIN SPONGE,ABSORB (SMALL) 1 EACH SPONGE ONE (21:00)
[2017-05-29] MEDS: CLOPIDOGREL 75 MG TAB PO SCH (21:36)
[2017-05-29] MEDS: MONTELUKAST 10 MG TAB PO SCH (21:36)
[2017-05-29] MEDS: CINACALCET 30 MG TAB PO SCH (21:36)
[2017-05-29] MEDS: ATORVASTATIN 40 MG TAB PO SCH (21:36)
[2017-05-29] MEDS: ACETAMINOPHEN TAB 325 MG TAB PO PRN (21:57)
[2017-05-29] MEDS: HEPARIN SODIUM,PORCINE 5,000 UNIT/ML 1 ML VIAL SQ SCH (21:58)
[2017-05-29] MEDS ORDERED: VANCOMYCIN IV PER PHARMACY 1 EACH MISC MISCELLANE PRN (22:30)
--- NOTE | 2017-05-29 22:44 | P.CONS ---
History of Present Illness - Reason for Consult Consult date: 05/29/17 - Chief Complaint Shortness of breath - History of Present Illness 62-year-old female presents to Hospital feeling very poorly. She's having increasing amounts of shortness of breath. She was noticed to have worsening of her chronic renal failure with an elevation of her creatinine and evidence of hyperkalemia. She subsequently was treated. She's also had initiation of some dialysis to help with her volume overload. She missed dialysis last week and thought to be why she was volume overloaded and having some hyperkalemia. Things are better today. Was having ongoing difficulties were right lower extremity. She has some swelling in distinct tenderness along the medial aspect of the calf and thigh just proximal to the knee. She relates no trauma or acute changes. She has had a vein harvested this area because of her coronary artery bypass grafting procedure so years ago. She relates that she's not had this distinct problem the past of the swelling but erythema and tenderness to the site. Duplexes were performed without evidence of deep venous thrombosis. The patient believes she may have had a fever but no current denies recent chills or rigors but feels quite poorly overall. Her profound shortness of breath is improving with her dialysis and await further dialysis session today. Infectious diseases consultation regarding the cellulitis to the right leg. Review of Systems 6 woman who apparently is feeling better than yesterday since she's had some dialysis and improvement of her volume and hyperkalemia HEENT:Denies headache or acute visual change. Denies sinus or mouth discomforts. Denies neck stiffness or pain. Denies significant oral cavity pain. Denies difficulty on swallowing. Lungs: Had significant shortness of breath at admission which is improved. Denies to be in sputum production or hemoptysis Cardiovascular: Has history of cardiovascular disease. As per HPI history of shortness of breath which is now improving denies significant dyspnea on exertion or orthopnea. Gastrointestinal:Denies nausea, vomiting, diarrhea, constipation, hematemesis, melena, hematochezia. No no significant change of bowel habit noticed. Musculoskeletal: denies significant myalgias or arthralgias. No new joint swelling. Denies new back pain. Skin: As per the HPI is evidence of the redness to the right leg Neuro: Denies headache or visual change. Denies any new onset weakness or difficulty with ambulation. Denies falls or seizures. Psychiatric:Denies anxiety or depression. Endocrine: Chronic fatigue and weight varies depending on her dialysis Past Medical History Past Medical History: Coronary Artery Disease (CAD), Chest Pain / Angina, Diabetes Mellitus, Hyperlipidemia, Hypertension, Myocardial Infarction ([place]), Renal Disease, Thyroid Disorder Additional Past Medical History / Comment(s): MIs, IDDM type II, GOUT R foot, diabetic neuropathy bilateral feet and now "all over", chronic ANEMIA, MITRAL and TRICUSID REGURGITATION, esrd gets hemodialysis [id number]., UTIs, bronchitis, hypoparathyroid, wears O2 at 2L/NC during dialysis only-has had bradycardia and hypotension during dialysis, hemorrhoids-have caused anemia in past, hyperkalemia Last Myocardial Infarction Date:: 07/06/16 History of Any Multi-Drug Resistant Organisms: None Reported Past Surgical History: Coronary Bypass/CABG, Heart Catheterization, Heart Catheterization With Stent Additional Past Surgical History / Comment(s): 07/05/16 cardiac cath-tx medially, PCI/STENTS, 3 VESSEL CABG, AV fistula R upper arm, colonoscopy- normal, bilateral cataract removal with lens implants, bilateral eye laser sx to remove fluid. Past Anesthesia/Blood Transfusion Reactions: Previous Problems w/ Anesthesia Additional Past Anesthesia/Blood Transfusion Reaction / Comm: POST OP DELIRIUM/ AGITATION/PSYCHOSIS-RESOLVED. Pt states she had a problem with hypotension last time she received versed. Date of Last Stent Placement:: 05/08/16 Smoking Status: Never smoker - Past Family History Mother Family Medical History: Diabetes Mellitus, Myocardial Infarction ([place]), Thyroid Disorder Additional Family Medical History / Comment(s): CABG, gout, hypothyroid. Mother is 80yrs old. Sister(s) Family Medical History: Diabetes Mellitus, Thyroid Disorder Father Family Medical History: Diabetes Mellitus, Myocardial Infarction ([place]) Additional Family Medical History / Comment(s): Father at the age of 67yrs of a [place] Medications and Allergies Home Medications and Allergies Comment(s): Current Medications Acetaminophen (Tylenol Tab) 650 mg PO Q4HR PRN PRN Reason: Fever and/ or Pain Last Admin: 05/29/17 21:57 Dose: 650 mg Albuterol/Ipratropium (Duoneb 0.5 Mg-3 Mg/3 Ml Soln) 3 ml INHALATION RT-QID MUKUND Last Admin: 05/29/17 21:05 Dose: 3 ml Allopurinol (Zyloprim) 100 mg PO DAILY [facility] Last Admin: 05/29/17 07:48 Dose: 100 mg Aspirin (Aspirin) 81 mg PO DAILY [facility] Last Admin: 05/29/17 07:48 Dose: 81 mg Atorvastatin Calcium (Lipitor) 40 mg PO [facility] Last Admin: 05/29/17 21:36 Dose: 40 mg Carvedilol (Coreg) 3.125 mg PO BID PRN PRN Reason: HIGH BLOOD PRESSURE Cinacalcet (Sensipar) 30 mg PO [facility] Last Admin: 05/29/17 21:36 Dose: 30 mg Clopidogrel Bisulfate (Plavix) 75 mg PO [facility] Last Admin: 05/29/17 21:36 Dose: 75 mg Gabapentin (Neurontin) 100 mg PO BID [facility] Last Admin: 05/29/17 21:36 Dose: 100 mg Heparin Sodium (Porcine) (Heparin) 5,000 unit SQ Q12HR [facility] Last Admin: 05/29/17 21:58 Dose: 5,000 unit Vancomycin HCl 1,500 mg/ (Sodium Chloride) 250 mls @ 125 mls/hr IVPB ONCE ONE Stop: 05/30/17 00:59 Insulin Aspart (Novolog) 0 unit SQ AC-TID [facility] PRN Reason: Protocol Last Admin: 05/29/17 21:59 Dose: 1 unit Insulin Detemir (Levemir) 35 unit SQ [facility] Last Admin: 05/29/17 21:58 Dose: 35 unit Loperamide HCl (Imodium) 2 mg PO QID PRN PRN Reason: Diarrhea Midodrine (Proamatine) 10 mg PO BID@0900,1600 [facility] Last Admin: 05/29/17 15:54 Dose: 10 mg Miscellaneous Information (Pharmacy To Dose Iv Vancomycin) 1 each MISCELLANE DIRECTED PRN PRN Reason: Per Protocol Montelukast Sodium (Singulair) 10 mg PO [facility] Last Admin: 05/29/17 21:36 Dose: 10 mg Nitroglycerin (Nitrostat) 0.4 mg SUBLINGUAL Q5M PRN PRN Reason: Chest Pain Airborne Chewable 1 tab PO QID PRN PRN Reason: [facility] Pantoprazole Sodium (Protonix) 40 mg PO AC-BID [facility] Last Admin: 05/29/17 17:04 Dose: 40 mg Sertraline HCl (Zoloft) 50 mg PO [facility] Last Admin: 05/29/17 21:36 Dose: 50 mg Home Medications Medication Instructions Recorded Confirmed Type Allopurinol [Zyloprim] 100 mg PO DAILY 11/15/14 05/28/17 History Gabapentin [Neurontin] 100 mg PO BID 11/15/14 05/28/17 History Nitroglycerin Sl Tabs [Nitrostat] 0.4 mg SUBLINGUAL Q5M PRN #25 tab 11/19/1401/05 Rx Omeprazole [PriLOSEC] 20 mg PO BID 01/31/15 05/28/17 History Insulin Glargine [Lantus] 35 unit SQ HS 03/03/15 05/28/17 History Loperamide [Imodium] 2 mg PO QID PRN 03/03/15 05/28/17 History Mv-Min/Vit C/Glu/Karla HCl/Hc124 1 tab PO QID PRN 03/03/15 05/28/17 History [Airborne Tablet Chewable] Sertraline [Zoloft] 50 mg PO HS 03/03/15 05/28/17 History Cinacalcet HCl [Sensipar] 30 mg PO HS 05/06/16 05/28/17 History Insulin Aspart [NovoLOG See Protocol SQ AC-TID 05/06/16 05/28/17 History (formulary)] Montelukast [Singulair] 10 mg PO HS #30 tab 06/30/16 05/28/17 Rx Atorvastatin [Lipitor] 40 mg PO HS 03/19/17 05/28/17 History Carvedilol [Coreg] 3.125 mg PO BID PRN 03/19/17 05/28/17 History Aspirin [Adult Low Dose Aspirin EC] 81 mg PO DAILY #30 tablet. 04/05/17 Rx Clopidogrel [Plavix] 75 mg PO HS #30 tab 04/05/17 05/28/17 Rx Midodrine HCl [ProAmatine] 10 mg PO BID 05/28/17 05/28/17 History Allergies Allergy/AdvReac Type Severity Reaction Status Date / Time adhesive Allergy Rash/Hives Verified 05/28/17 12:19 cephalexin monohydrate Allergy Rash/Hives Verified 05/28/17 12:19 [From Keflex] hydromorphone HCl Allergy Hallucinati Verified 05/28/17 12:19 [From Dilaudid] ons iodine Allergy Rash/Hives Verified 05/28/17 12:19 Penicillins Allergy Unknown Verified 05/28/17 12:19 Childhood povidone-iodine Allergy Unknown Verified 05/28/17 12:19 [From Betadine] shellfish derived [Shrimp] Allergy Rash/Hives Verified 05/28/17 12:19 soap [From Betadine] Allergy Unknown Verified 05/28/17 12:19 fentanyl AdvReac Unknown Verified 05/28/17 12:19 hydrocodone bitartrate AdvReac Itching Verified 05/28/17 12:19 [From Vicodin] midazolam [From Versed] AdvReac Unknown Verified 05/28/17 12:19 morphine AdvReac Hallucinati Verified 05/28/17 12:19 ons tramadol AdvReac Itching Verified 05/28/17 12:19 artifical sweetener AdvReac Unknown Uncoded 05/28/17 11:20 Physical Exam Vitals: Vital Signs Temp Pulse Pulse Resp BP Pulse Ox 05/29/17 21:16 90 05/29/17 21:06 86 05/29/17 16:41 100 05/29/17 16:29 96 05/29/17 15:56 98.5 F 98 18 93/50 97 05/29/17 11:40 99.5 F 93 18 93/54 93 L 05/29/17 07:48 97.6 F 96 18 90/56 96 05/29/17 04:00 97.5 F L 94 19 120/62 99 05/29/17 00:00 97.2 F L 98 17 137/74 98 Intake and Output 05/29/17 05/29/17 05/29/17 06:59 14:59 22:59 Intake Total 480 240 Balance 480 240 Intake: Oral 480 240 Other: Voiding Method Urinal Toilet Toilet # Voids 0 1 0 Weight 81.5 kg 62-year-old woman who is modestly comfortable at this time is less short of breath and admission HEENT: Anicteric conjunctiva are pink and moist nasal mucosa grossly intact without significant lesions, there is no thrush. Full denture in place Neck: The neck is supple without significant lymphadenopathy or thyromegaly. Lungs: They're symmetrical bilateral air entry with basilar crackles being heard. Few wheezes are also heard. No gerber bronchial sounds no dullness or egophony Heart: Irregular with an audible S1 and S2 soft S4 there is no click or rub but there is evidence of the holosystolic murmur PMI was nondisplaced Abdomen: Mildly obese, Positive bowel sounds soft and nontender without palpable masses or organomegaly. There was no guarding or rebound. Extremities: The upper extremities are intact. She is evidence of the cadaver fistula into the left upper extremity that has an easily palpated thrill and bruit is present lower extremities have trace edema. No significant open ulcers are seen. The right lower extremity has evidence of distinct warmth that is present from the calf to the very distal aspect of the medial thigh. There some distinct tenderness area also. There is no significant tenderness into the right groin. The lymphadenopathy is noted inguinal, also no lymphadenopathy cervical supraclavicular axillary or epitrochlear this time. Neuro: Awake alert oriented to person place and time. There are no acute new gross focal sensory motor deficits. Results CBC & Chem 7: 05/29/17 05:57 05/29/17 05:57 Labs: Abnormal Lab Results - Last 24 Hours (Table) 05/29/17 05/29/17 05/29/17 Range/Units 05:57 05:57 06:04 RBC 2.81 L (3.80-5.40) m/uL Hgb 8.6 L (11.4-16.0) gm/dL Hct 27.2 L (34.0-46.0) % RDW 16.4 H (11.5-15.5) % Plt Count 143 L (150-450) k/uL Lymphocytes # 0.7 L (1.0-4.8) k/uL BUN 56 H (7-17) mg/dL Creatinine 7.50 H* (0.52-1.04) mg/dL Glucose 161 H (74-99) mg/dL POC Glucose (mg/dL) 179 H (75-99) mg/dL Total Protein 5.6 L (6.3-8.2) g/dL Albumin 3.4 L (3.5-5.0) g/dL 05/29/17 05/29/17 05/29/17 Range/Units 12:10 16:57 20:50 RBC (3.80-5.40) m/uL Hgb (11.4-16.0) gm/dL Hct (34.0-46.0) % RDW (11.5-15.5) % Plt Count (150-450) k/uL Lymphocytes # (1.0-4.8) k/uL BUN (7-17) mg/dL Creatinine (0.52-1.04) mg/dL Glucose (74-99) mg/dL POC Glucose (mg/dL) 176 H 197 H 159 H (75-99) mg/dL Total Protein (6.3-8.2) g/dL Albumin (3.5-5.0) g/dL Laboratory Results WBC 7.6 k/uL (3.8-10.6) 05/29/17 05:57 RBC 2.81 m/uL (3.80-5.40) L 05/29/17 05:57 Hgb 8.6 gm/dL (11.4-16.0) L 05/29/17 05:57 Hct 27.2 % (34.0-46.0) L 05/29/17 05:57 MCV 96.8 fL (80.0-100.0) 05/29/17 05:57 MCH 30.7 pg (25.0-35.0) 05/29/17 05:57 MCHC 31.7 g/dL (31.0-37.0) 05/29/17 05:57 RDW 16.4 % (11.5-15.5) H 05/29/17 05:57 Plt Count 143 k/uL (150-450) L 05/29/17 05:57 Neutrophils % 84 % 05/29/17 05:57 Lymphocytes % 10 % 05/29/17 05:57 Monocytes % 4 % 05/29/17 05:57 Eosinophils % 2 % 05/29/17 05:57 Basophils % 0 % 05/29/17 05:57 Neutrophils # 6.3 k/uL (1.3-7.7) 05/29/17 05:57 Lymphocytes # 0.7 k/uL (1.0-4.8) L 05/29/17 05:57 Monocytes # 0.3 k/uL (0-1.0) 05/29/17 05:57 Eosinophils # 0.2 k/uL (0-0.7) 05/29/17 05:57 Basophils # 0.0 k/uL (0-0.2) 05/29/17 05:57 Hypochromasia Slight 05/28/17 12:25 Anisocytosis Slight 05/29/17 05:57 Macrocytosis Slight 05/29/17 05:57 PT 10.5 sec (9.0-12.0) 05/28/17 14:00 INR 1.1 (<1.2) 05/28/17 14:00 APTT 21.6 sec (22.0-30.0) L 05/28/17 14:00 Sodium 140 mmol/L (137-145) 05/29/17 05:57 Potassium 4.4 mmol/L (3.5-5.1) 05/29/17 05:57 Chloride 98 mmol/L (98-107) 05/29/17 05:57 Carbon Dioxide 27 mmol/L (22-30) 05/29/17 05:57 Anion Gap 15 mmol/L 05/29/17 05:57 BUN 56 mg/dL (7-17) H 05/29/17 05:57 Creatinine 7.50 mg/dL (0.52-1.04) H* 05/29/17 05:57 Est GFR (MDRD) Af Amer 7 (>60 ml/min/1.73 sqM) 05/29/17 05:57 Est GFR (MDRD) Non-Af 6 (>60 ml/min/1.73 sqM) 05/29/17 05:57 Glucose 161 mg/dL (74-99) H 05/29/17 05:57 POC Glucose (mg/dL) 159 mg/dL (75-99) H 05/29/17 20:50 POC Glu Credit Risk Associate BEBE Yoselyn Love 05/29/17 20:50 Calcium 9.0 mg/dL (8.4-10.2) 05/29/17 05:57 Total Bilirubin 0.3 mg/dL (0.2-1.3) 05/29/17 05:57 AST 16 U/L (14-36) 05/29/17 05:57 ALT 35 U/L (9-52) 05/29/17 05:57 Alkaline Phosphatase 118 U/L (38-126) 05/29/17 05:57 Total Creatine Kinase 62 U/L (30-135) 05/28/17 12:25 CK-MB (CK-2) 2.8 ng/mL (0.0-2.4) H* 05/28/17 12:25 CK-MB (CK-2) Rel Index 4.5 05/28/17 12:25 Troponin I 0.499 ng/mL (0.000-0.034) H* 05/28/17 12:25 NT-Pro-B Natriuret Pep 32561 pg/mL 05/28/17 12:25 Total Protein 5.6 g/dL (6.3-8.2) L 05/29/17 05:57 Albumin 3.4 g/dL (3.5-5.0) L 05/29/17 05:57 Influenza Type A RNA Not Detected (Not Detectd) 05/28/17 12:25 Influenza Type B (PCR) Not Detected (Not Detectd) 05/28/17 12:25 Chest x-ray: report reviewed, image reviewed (CHF) Assessment and Plan (1) ESRD (end stage renal disease) on dialysis Current Visit: No Status: Acute Code(s): N18.6 - END STAGE RENAL DISEASE; Z99.2 - DEPENDENCE ON RENAL DIALYSIS SNOMED Code(s): 095501200 (2) Pulmonary edema Current Visit: Yes Status: Acute Code(s): J81.1 - CHRONIC PULMONARY EDEMA SNOMED Code(s): 31944605 (3) Diabetes mellitus, type II Current Visit: No Status: Chronic Code(s): E11.9 - TYPE 2 DIABETES MELLITUS WITHOUT COMPLICATIONS SNOMED Code(s): 49141694 (4) Cellulitis of right lower extremity Narrative/Plan: 62-year-old woman presents to Hospital feeling poorly with some shortness of breath increasing lower extremity edema and pain to her right leg. She had missed a dialysis session and was volume overloaded. Has had an urgent dialysis session with some improvement in improvement of her hypokalemia. She was having difficulty with the pain to the right leg is noted to have some erythema some distinct tenderness and some point tenderness. Duplex scan is performed and is negative for deep venous thrombosis. There was some mild leukocytosis also that is improved. Influenza testing is negative. At this time there is a cellulitis of the right lower extremity causing the swelling erythema and tenderness at that site. Antibiotic therapy is initiated with vancomycin given her ALLERGIES. No other significant source of infection is seen. It appears that she is having volume overload possibly from lack of dialysis and chronic congestive heart failure causing the chest x-ray changes consistent with congestive heart failure. Continue dialysis and elevation the lower extremities will help the resolution of the current cellulitis. Current Visit: Yes Status: Acute Code(s): L03.115 - CELLULITIS OF RIGHT LOWER LIMB SNOMED Code(s): 260780922
[2017-05-29] MEDS ORDERED: VANCOMYCIN 1,500 MG in SODIUM CHLORIDE 0.9% 250 ML IVPB ONE (23:00)
--- NOTE | 2017-05-29 23:05 | CONS ---
CONSULTATION REASON FOR CONSULT: End-stage renal disease. HISTORY OF PRESENT ILLNESS: The patient is a 62-year-old female with end-stage renal disease, on hemodialysis on a Sunday, Sunday, Sunday schedule. She was admitted to the hospital with shortness of breath. The patient was in fluid overload. She was dialyzed yesterday and she will be dialyzed again today. She states she is feeling better. There was no history of fever, cough, nausea, vomiting or diarrhea. The patient states that she has noticed some redness in her right lower extremity. PAST MEDICAL HISTORY: End-stage renal disease, type 2 diabetes, hyperlipidemia, coronary artery disease, history of HI, hypertension, CKD, mineral bone disorder, gout, anemia of chronic disease, hypotension during dialysis, maintained on midodrine. PAST SURGICAL HISTORY: Coronary artery bypass surgery, cardiac catheterization. SOCIAL HISTORY: Negative for smoking, drug abuse or alcohol abuse. MEDICATIONS: At home prior to admission included: 1. Prilosec. 2. Neurontin. 3. Zyloprim. 4. Insulin. 5. Zoloft. 6. Sensipar. 7. Midodrine. 8. Coreg. 9. Lipitor. 10.Singulair. 11.Plavix. ALLERGIES: Multiple. Please see list. EXAMINATION: Patient is comfortable, awake, alert, oriented x3. She is not in any acute distress. Blood pressure 93/54. Patient is afebrile. Heart rate 96 per minute. HEART: S1, S2. LUNGS: Bilateral breath sounds are heard. Abdomen is soft, nontender. Lower extremities show no evidence of edema. [employer] SU[employer] is grossly intact. LABS: Show potassium of 4.4,. It was 6.7 yesterday. Hemoglobin is 8.6 g/dL. ASSESSMENT: 1. End-stage renal disease, on hemodialysis on Sunday, Sunday, Sunday schedule, status post dialysis yesterday. Patient will be dialyzed again today, as she did not have a full treatment last night. 2. Hyperkalemia, improved post dialysis. 3. Fluid overload, currently improved. 4. Anemia of chronic disease. No active bleeding noted. We will maintain patient on Aranesp. PLAN: Hemodialysis today for about 3 hours and then again tomorrow, which is her regular day. Start patient on Aranesp. Possible discharge in the next day or so. MMODL / IJN: [id number] /
[2017-05-30 05:45] LABS: Hemoglobin A1C 6.4 % (4.0-6.0)
[2017-05-30 06:02] LABS: Glucose,Whole Blood 170 mg/dL (75-99)
[2017-05-30] MEDS: PANTOPRAZOLE 40 MG TABLET PO SCH ×2 (06:19→17:21)
[2017-05-30 06:30] LABS: Anisocytosis Slight; Basophils # (A) 0.1 k/uL (0-0.2); Basophils % (A) 1 %; Eosinophils # (A) 0.2 k/uL (0-0.7); Eosinophils % (A) 2 %; HCT 33.5 % (34.0-46.0); HGB 10.1 gm/dL (11.4-16.0); Hypochromasia Moderate; Lymphocytes # (A) 0.9 k/uL (1.0-4.8); Lymphocytes % (A) 10 %; MCH 30.1 pg (25.0-35.0); MCHC 30.3 g/dL (31.0-37.0); MCV 99.3 fL (80.0-100.0); Macrocytosis Slight; Mean Platelet Volume 7.8; Monocytes # (A) 0.3 k/uL (0-1.0); Monocytes % (A) 3 %; Neutrophils % (A) 84 %; Platelet Count 152 k/uL (150-450); RBC 3.37 m/uL (3.80-5.40); RDW 17.5 % (11.5-15.5); WBC 9.5 k/uL (3.8-10.6)
[2017-05-30 06:50] LABS: Albumin 3.7 g/dL (3.5-5.0); Potassium 4.1 mmol/L (3.5-5.1); Total Bilirubin 0.4 mg/dL (0.2-1.3); Total Protein 6.2 g/dL (6.3-8.2)
[2017-05-30] MEDS: HEPARIN SODIUM,PORCINE 5,000 UNIT/ML 1 ML VIAL SQ SCH ×2 (07:56→21:08)
[2017-05-30] MEDS: ASPIRIN 81 MG PO SCH (07:56)
[2017-05-30] MEDS: GABAPENTIN 100 MG CAP PO SCH ×2 (07:56→21:08)
[2017-05-30] MEDS: ALLOPURINOL 100 MG TAB PO SCH (07:56)
[2017-05-30] MEDS: MIDODRINE 5 MG TAB PO SCH ×2 (07:56→16:08)
[2017-05-30] MEDS: ONDANSETRON 4 MG/2 ML VIAL IVP PRN ×2 (07:56→21:21)
[2017-05-30] MEDS: IPRATROPIUM-ALBUTEROL 3 ML NEB INHALATION SCH ×4 (08:29→20:17)
[2017-05-30] MEDS: ACETAMINOPHEN TAB 325 MG TAB PO PRN ×3 (09:04→23:16)
--- NOTE | 2017-05-30 09:39 | P.PN ---
Subjective Patient is seen in follow-up for end-stage renal disease. She is maintained on hemodialysis on a Sunday schedule. She had an ex her treatment yesterday for fluid overload. Her dyspnea is little improved. She does have intermittent chest pain. Oral intake is fair. Vital signs are stable. General: The patient appeared well nourished and normally developed. HEENT: Head exam is unremarkable. Neck is without jugular venous distension. LUNGS: Lungs are clear to auscultation and percussion. Breath sounds decreased. HEART: Rate and Rhythm are regular. First and second heart sounds normal. No murmurs, rubs or gallops. ABDOMEN: Abdominal exam reveals normal bowel sounds. Non-tender and non- distended. No evidence of peritonitis. EXTREMITITES: No clubbing, cyanosis, or edema. Objective - Vital Signs Vital signs: Vital Signs Temp 98 F 05/30/17 08:00 Pulse 92 05/30/17 08:41 Resp 16 05/30/17 08:00 BP 104/60 05/30/17 08:00 Pulse Ox 98 05/30/17 08:00 Intake & Output 05/29/17 05/30/17 05/30/17 18:59 06:59 18:59 Intake Total 720 250 100 Output Total 0 Balance 720 250 100 Weight 81.1 kg Intake: Oral 720 250 100 Output: Urine 0 Other: Voiding Method Toilet Toilet # Voids 0 0 - Labs CBC & Chem 7: 05/30/17 06:00 05/30/17 06:00 Labs: Abnormal Lab Results - Last 24 Hours (Table) 05/29/17 05/29/17 05/29/17 Range/Units 05:57 05:57 12:10 RBC (3.80-5.40) m/uL Hgb (11.4-16.0) gm/dL Hct (34.0-46.0) % MCHC (31.0-37.0) g/dL RDW (11.5-15.5) % Neutrophils # (1.3-7.7) k/uL Lymphocytes # (1.0-4.8) k/uL BUN (7-17) mg/dL Creatinine (0.52-1.04) mg/dL Glucose (74-99) mg/dL POC Glucose (mg/dL) 176 H (75-99) mg/dL Hemoglobin A1c 6.4 H (4.0-6.0) % Iron 23 L (50-170) ug/dL TIBC 222 L (228-460) ug/dL Iron Saturation 10.36 L (12.00-45.00) Ferritin 1355.5 H (10.0-291.0) ng/mL Total Protein (6.3-8.2) g/dL 05/29/17 05/29/17 05/30/17 Range/Units 16:57 20:50 05:54 RBC (3.80-5.40) m/uL Hgb (11.4-16.0) gm/dL Hct (34.0-46.0) % MCHC (31.0-37.0) g/dL RDW (11.5-15.5) % Neutrophils # (1.3-7.7) k/uL Lymphocytes # (1.0-4.8) k/uL BUN (7-17) mg/dL Creatinine (0.52-1.04) mg/dL Glucose (74-99) mg/dL POC Glucose (mg/dL) 197 H 159 H 170 H (75-99) mg/dL Hemoglobin A1c (4.0-6.0) % Iron (50-170) ug/dL TIBC (228-460) ug/dL Iron Saturation (12.00-45.00) Ferritin (10.0-291.0) ng/mL Total Protein (6.3-8.2) g/dL 05/30/17 05/30/17 Range/Units 06:00 06:00 RBC 3.37 L (3.80-5.40) m/uL Hgb 10.1 L (11.4-16.0) gm/dL Hct 33.5 L (34.0-46.0) % MCHC 30.3 L (31.0-37.0) g/dL RDW 17.5 H (11.5-15.5) % Neutrophils # 8.0 H (1.3-7.7) k/uL Lymphocytes # 0.9 L (1.0-4.8) k/uL BUN 32 H (7-17) mg/dL Creatinine 5.34 H* (0.52-1.04) mg/dL Glucose 170 H (74-99) mg/dL POC Glucose (mg/dL) (75-99) mg/dL Hemoglobin A1c (4.0-6.0) % Iron (50-170) ug/dL TIBC (228-460) ug/dL Iron Saturation (12.00-45.00) Ferritin (10.0-291.0) ng/mL Total Protein 6.2 L (6.3-8.2) g/dL Assessment and Plan Plan: Assessment: #1. End-stage renal disease maintained on hemodialysis on a Sunday schedule. #2. Volume overload. Improved postdialysis. She had an extra treatment yesterday. #3. Anemia of chronic kidney disease maintained on Aranesp. #4. 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 #5. Lower extremity cellulitis maintained on antibiotics per infectious disease recommendations. Plan: Hemodialysis today per her outpatient schedule. Check phosphorus level.
--- NOTE | 2017-05-30 10:44 | P.PN ---
Subjective Progress Note Date: 05/30/17 This is a 62-year-old female with a known past medical history of end-stage renal disease on hemodialysis, diabetes mellitus, myocardial infarction, coronary artery disease with previous cardiac stents and coronary bypass grafting. Patient presents to the emergency room with complaints of cough and shortness of breath with nighttime fevers for about a week. Also complaining of pain in the lower extremities in the calf area with redness noted along the medial aspects of both legs coming up into the thighs. Patient reports no injury to the legs. She had missed her hemodialysis on Sunday due to her leg pain and cough. She presented to the emergency room for further evaluation and treatment. She required dialysis in the emergency room yesterday and again she' ll receive dialysis today. BNP was elevated at 62,100 troponin elevated at 0.499. Cardiology, nephrology and infectious disease has been consulted. Venous Doppler of the lower extremities are negative for DVT. ER report patient apparently had had some chest pain. However now she is not complaining of any chest pain. She denies any nausea or vomiting. Denies any bowel movement changes or urinary symptoms. Influenza screen was negative. EKG shows normal sinus rhythm. Chest x-ray small left pleural effusion, left basal atelectasis and mild coronary vascular congestion /interstitial edema likely on the basis of decompensated congestive heart failure. On 05/30/2017 patient is alert and oriented she is complaining of cough planing of nausea and vomiting erythema in the right lower extremity is improving. Patient denies any fever or chills no headache no dizziness chest pain or shortness of breath nominal pain, no urinary symptoms, she is scheduled for hemodialysis today. Objective - Vital Signs Vital signs: Vital Signs Temp 98 F 05/30/17 08:00 Pulse 92 05/30/17 08:41 Resp 16 05/30/17 08:00 BP 104/60 05/30/17 08:00 Pulse Ox 98 05/30/17 08:00 Intake & Output 05/29/17 05/30/17 05/30/17 18:59 06:59 18:59 Intake Total 720 250 100 Output Total 0 Balance 720 250 100 Weight 81.1 kg Intake: Oral 720 250 100 Output: Urine 0 Other: Voiding Method Toilet Toilet # Voids 0 0 - Exam Head normocephalic, and atraumatic Neck supple, no JVD no goiter no lymphadenopathy Lungs crackles right lower lobe with a few expiratory wheezing noted posteriorly in coarse breath sounds Heart regular rate and rhythm S1-S2, no rub or gallop Abdomen is soft nontender nondistended positive bowel sounds no hepatosplenomegaly Extremities tenderness with palpation of the lower extremities in the calf area. Patient does have redness streaking along the medial aspect of the right leg near her scar from her venous graft. Redness goes up into the thigh area. Evidence of dry skin. Neuro alert and orientated to 3 - Labs CBC & Chem 7: 05/30/17 06:00 05/30/17 06:00 Labs: Abnormal Lab Results - Last 24 Hours (Table) 05/29/17 05/29/17 05/29/17 Range/Units 05:57 05:57 12:10 RBC (3.80-5.40) m/uL Hgb (11.4-16.0) gm/dL Hct (34.0-46.0) % MCHC (31.0-37.0) g/dL RDW (11.5-15.5) % Neutrophils # (1.3-7.7) k/uL Lymphocytes # (1.0-4.8) k/uL BUN (7-17) mg/dL Creatinine (0.52-1.04) mg/dL Glucose (74-99) mg/dL POC Glucose (mg/dL) 176 H (75-99) mg/dL Hemoglobin A1c 6.4 H (4.0-6.0) % Phosphorus (2.5-4.5) mg/dL Iron 23 L (50-170) ug/dL TIBC 222 L (228-460) ug/dL Iron Saturation 10.36 L (12.00-45.00) Ferritin 1355.5 H (10.0-291.0) ng/mL Total Protein (6.3-8.2) g/dL 05/29/17 05/29/17 05/30/17 Range/Units 16:57 20:50 05:54 RBC (3.80-5.40) m/uL Hgb (11.4-16.0) gm/dL Hct (34.0-46.0) % MCHC (31.0-37.0) g/dL RDW (11.5-15.5) % Neutrophils # (1.3-7.7) k/uL Lymphocytes # (1.0-4.8) k/uL BUN (7-17) mg/dL Creatinine (0.52-1.04) mg/dL Glucose (74-99) mg/dL POC Glucose (mg/dL) 197 H 159 H 170 H (75-99) mg/dL Hemoglobin A1c (4.0-6.0) % Phosphorus (2.5-4.5) mg/dL Iron (50-170) ug/dL TIBC (228-460) ug/dL Iron Saturation (12.00-45.00) Ferritin (10.0-291.0) ng/mL Total Protein (6.3-8.2) g/dL 05/30/17 05/30/17 05/30/17 Range/Units 06:00 06:00 06:00 RBC 3.37 L (3.80-5.40) m/uL Hgb 10.1 L (11.4-16.0) gm/dL Hct 33.5 L (34.0-46.0) % MCHC 30.3 L (31.0-37.0) g/dL RDW 17.5 H (11.5-15.5) % Neutrophils # 8.0 H (1.3-7.7) k/uL Lymphocytes # 0.9 L (1.0-4.8) k/uL BUN 32 H (7-17) mg/dL Creatinine 5.34 H* (0.52-1.04) mg/dL Glucose 170 H (74-99) mg/dL POC Glucose (mg/dL) (75-99) mg/dL Hemoglobin A1c (4.0-6.0) % Phosphorus 5.5 H (2.5-4.5) mg/dL Iron (50-170) ug/dL TIBC (228-460) ug/dL Iron Saturation (12.00-45.00) Ferritin (10.0-291.0) ng/mL Total Protein 6.2 L (6.3-8.2) g/dL Assessment and Plan Plan: 1. Acute systolic CHF exacerbation: Echo from November 2016 shows an EF of 40-45%. BNP elevated at 62,100. Patient received hemodialysis yesterday and will again today. Cardiology and nephrology following. Likely fluid overload due to missing hemodialysis on Sunday 2. Right lower extremity cellulitis: Patient has ALLERGY to penicillin and Keflex. Consult infectious disease for antibiotic recommendations. Doppler of bilateral lower extremities negative for DVT patient was evaluated by Dr. Cunningham and was started on IV vancomycin 3. Acute tracheobronchitis. No evidence of pneumonia on chest x-ray. Antibiotics per infectious disease 4. End stage renal disease on hemodialysis, patient is scheduled for dialysis again today 5. Insulin-dependent diabetes mellitus 6. History of myocardial infarction and coronary disease with cardiac stent previous CABG 7. Anemia of chronic kidney disease. Check iron studies DVT prophylaxis subcu heparin
[2017-05-30 11:34] LABS: Glucose,Whole Blood 250 mg/dL (75-99)
[2017-05-30] MEDS: INSULIN ASPART 100 UNIT/ML 1 ML 10 ML VIAL SQ SCH ×2 (11:42→17:21)
--- NOTE | 2017-05-30 15:51 | P.PN ---
Subjective Progress Note Date: 05/30/17 This is a 62-year-old female with known history of coronary artery disease and prior bypass surgery as well as PCI, end-stage renal disease on hemodialysis, diabetes, hypertension, hyperlipidemia, family history of premature coronary artery disease, she presented to the hospital with symptoms of progressively worsening shortness of breath, she had missed her dialysis. Patient was also in [place] between and , she was admitted to the hospital underwent cardiac catheterization, under similar to her recent cath which was performed here. Patient was seen and examined this morning, she does state that her breathing is mildly improved today overall, continues to have a cough, mild nausea this morning. She did undergo dialysis yesterday and is scheduled again for dialysis today. Hemoglobin 10.1, BUN 32, creatinine 5.3. Cardiac exam with Doppler study was performed which revealed an ejection fraction of 25-30%. Objective - Vital Signs Vital signs: Vital Signs Temp 97 F L 05/30/17 12:00 Pulse 95 05/30/17 13:55 Resp 16 05/30/17 12:00 BP 120/71 05/30/17 13:55 Pulse Ox 97 05/30/17 12:00 Intake & Output 05/29/17 05/30/17 05/30/17 18:59 06:59 18:59 Intake Total 720 250 100 Output Total 0 Balance 720 250 100 Weight 81.1 kg Intake: Oral 720 250 100 Output: Urine 0 Other: Voiding Method Toilet Toilet Toilet # Voids 0 0 - Exam PHYSICAL EXAMINATION: HEENT: Head is atraumatic, normocephalic. Pupils equal, round. Neck is supple. There is no elevated jugular venous pressure. HEART EXAMINATION: Heart S1 and S2 with systolic murmur is heard. CHEST EXAMINATION: Lungs are clear to auscultation and precussion. No chest wall tenderness is noted on palpation or with deep breathing. ABDOMEN: Soft, nontender. Bowel sounds are heard. No organomegaly noted. EXTREMITIES: 2+ peripheral pulses with no evidence of peripheral edema and no calf tenderness noted. NEUROLOGIC patient is awake, alert and oriented -3. . - Labs CBC & Chem 7: 05/30/17 06:00 05/30/17 06:00 Labs: Abnormal Lab Results - Last 24 Hours (Table) 05/29/17 05/29/17 05/29/17 Range/Units 05:57 05:57 16:57 RBC (3.80-5.40) m/uL Hgb (11.4-16.0) gm/dL Hct (34.0-46.0) % MCHC (31.0-37.0) g/dL RDW (11.5-15.5) % Neutrophils # (1.3-7.7) k/uL Lymphocytes # (1.0-4.8) k/uL BUN (7-17) mg/dL Creatinine (0.52-1.04) mg/dL Glucose (74-99) mg/dL POC Glucose (mg/dL) 197 H (75-99) mg/dL Hemoglobin A1c 6.4 H (4.0-6.0) % Phosphorus (2.5-4.5) mg/dL Iron 23 L (50-170) ug/dL TIBC 222 L (228-460) ug/dL Iron Saturation 10.36 L (12.00-45.00) Ferritin 1355.5 H (10.0-291.0) ng/mL Total Protein (6.3-8.2) g/dL 05/29/17 05/30/17 05/30/17 Range/Units 20:50 05:54 06:00 RBC 3.37 L (3.80-5.40) m/uL Hgb 10.1 L (11.4-16.0) gm/dL Hct 33.5 L (34.0-46.0) % MCHC 30.3 L (31.0-37.0) g/dL RDW 17.5 H (11.5-15.5) % Neutrophils # 8.0 H (1.3-7.7) k/uL Lymphocytes # 0.9 L (1.0-4.8) k/uL BUN (7-17) mg/dL Creatinine (0.52-1.04) mg/dL Glucose (74-99) mg/dL POC Glucose (mg/dL) 159 H 170 H (75-99) mg/dL Hemoglobin A1c (4.0-6.0) % Phosphorus (2.5-4.5) mg/dL Iron (50-170) ug/dL TIBC (228-460) ug/dL Iron Saturation (12.00-45.00) Ferritin (10.0-291.0) ng/mL Total Protein (6.3-8.2) g/dL 05/30/17 05/30/17 05/30/17 Range/Units 06:00 06:00 11:29 RBC (3.80-5.40) m/uL Hgb (11.4-16.0) gm/dL Hct (34.0-46.0) % MCHC (31.0-37.0) g/dL RDW (11.5-15.5) % Neutrophils # (1.3-7.7) k/uL Lymphocytes # (1.0-4.8) k/uL BUN 32 H (7-17) mg/dL Creatinine 5.34 H* (0.52-1.04) mg/dL Glucose 170 H (74-99) mg/dL POC Glucose (mg/dL) 250 H (75-99) mg/dL Hemoglobin A1c (4.0-6.0) % Phosphorus 5.5 H (2.5-4.5) mg/dL Iron (50-170) ug/dL TIBC (228-460) ug/dL Iron Saturation (12.00-45.00) Ferritin (10.0-291.0) ng/mL Total Protein 6.2 L (6.3-8.2) g/dL Assessment and Plan Plan: Assessment and plan #1 worsening dyspnea, after missing dialysis. Feeling much better overall today. Patient did have dialysis yesterday and again today is scheduled for dialysis. #2 minimal elevation of troponin, does not reflect acute coronary syndrome, likely secondary to abnormal renal function. Patient did have a cardiac catheterization performed over the holidays in [place], results which were unchanged from the most recent cath performed here in March. #3 known history of coronary artery disease with prior bypass surgery and PCI as #4 hypertension Number 5 hyperlipidemia #6 diabetes #7 end-stage renal disease on hemodialysis Plan echocardiogram with Doppler study was performed which revealed an ejection fraction of 25-30%, echo performed in November of this year revealed an ejection fraction of 40-45%. We will continue current medications. DNP note has been reviewed, I agree with a documented findings and plan of care. Patient was seen and examined.
[2017-05-30 16:55] LABS: Glucose,Whole Blood 154 mg/dL (75-99)
[2017-05-30 20:49] LABS: Glucose,Whole Blood 134 mg/dL (75-99)
[2017-05-30] MEDS: MONTELUKAST 10 MG TAB PO SCH (21:08)
[2017-05-30] MEDS: CINACALCET 30 MG TAB PO SCH (21:08)
[2017-05-30] MEDS: INSULIN DETEMIR 100 UNIT/ML 10 ML VIAL SQ SCH (21:08)
[2017-05-30] MEDS: ATORVASTATIN 40 MG TAB PO SCH (21:08)
[2017-05-30] MEDS: CLOPIDOGREL 75 MG TAB PO SCH (21:08)
[2017-05-30] MEDS: SERTRALINE 50 MG TAB PO SCH (21:08)
--- NOTE | 2017-05-30 22:11 | P.PN ---
Subjective Progress Note Date: 05/30/17 Principal diagnosis: Shortness of breath 62-year-old female presents to Hospital feeling very poorly. She's having increasing amounts of shortness of breath. She was noticed to have worsening of her chronic renal failure with an elevation of her creatinine and evidence of hyperkalemia. She subsequently was treated. She's also had initiation of some dialysis to help with her volume overload. She missed dialysis last week and thought to be why she was volume overloaded and having some hyperkalemia. Things are better today. Was having ongoing difficulties were right lower extremity. She has some swelling in distinct tenderness along the medial aspect of the calf and thigh just proximal to the knee. She relates no trauma or acute changes. She has had a vein harvested this area because of her coronary artery bypass grafting procedure so years ago. She relates that she's not had this distinct problem the past of the swelling but erythema and tenderness to the site. Duplexes were performed without evidence of deep venous thrombosis. The patient believes she may have had a fever but no current denies recent chills or rigors but feels quite poorly overall. Her profound shortness of breath is now much improved now with her third dialysis session occurring. Her significant pain and erythema to the right leg of also improved. Objective - Vital Signs Vital signs: Vital Signs Temp 97.0 F L 05/30/17 20:00 Pulse 94 05/30/17 20:28 Resp 17 05/30/17 20:00 BP 121/67 05/30/17 20:00 Pulse Ox 95 05/30/17 20:00 Intake & Output 05/30/17 05/30/17 05/31/17 06:59 18:59 06:59 Intake Total 250 218 Output Total 0 0 Balance 250 218 0 Weight 81.1 kg Intake: Oral 250 218 Output: Urine 0 0 Other: Voiding Method Toilet Toilet Toilet # Voids 0 0 - Exam 62-year-old woman who is modestly comfortable at this time is less short of breath and admission HEENT: Anicteric conjunctiva are pink and moist nasal mucosa grossly intact without significant lesions, there is no thrush. Full denture in place Neck: The neck is supple without significant lymphadenopathy or thyromegaly. Lungs: They're symmetrical bilateral air entry with basilar crackles being heard. Few wheezes are also heard. No gerber bronchial sounds no dullness or egophony Heart: Irregular with an audible S1 and S2 soft S4 there is no click or rub but there is evidence of the holosystolic murmur PMI was nondisplaced Abdomen: Mildly obese, Positive bowel sounds soft and nontender without palpable masses or organomegaly. There was no guarding or rebound. Extremities: The upper extremities are intact. She is evidence of the cadaver fistula into the left upper extremity that has an easily palpated thrill and bruit is present lower extremities have trace edema. No significant open ulcers are seen. The right lower extremity has evidence of improvement of the warmth that is present from the calf to the very distal aspect of the medial thigh. There some distinct tenderness area also. There is no significant tenderness into the right groin. The lymphadenopathy is noted inguinal, also no lymphadenopathy cervical supraclavicular axillary or epitrochlear this time. Neuro: Awake alert oriented to person place and time. There are no acute new gross focal sensory motor deficits. - Labs CBC & Chem 7: 05/30/17 06:00 05/30/17 06:00 Labs: Abnormal Lab Results - Last 24 Hours (Table) 05/29/17 05/29/17 05/30/17 Range/Units 05:57 05:57 05:54 RBC (3.80-5.40) m/uL Hgb (11.4-16.0) gm/dL Hct (34.0-46.0) % MCHC (31.0-37.0) g/dL RDW (11.5-15.5) % Neutrophils # (1.3-7.7) k/uL Lymphocytes # (1.0-4.8) k/uL BUN (7-17) mg/dL Creatinine (0.52-1.04) mg/dL Glucose (74-99) mg/dL POC Glucose (mg/dL) 170 H (75-99) mg/dL Hemoglobin A1c 6.4 H (4.0-6.0) % Phosphorus (2.5-4.5) mg/dL Iron 23 L (50-170) ug/dL TIBC 222 L (228-460) ug/dL Iron Saturation 10.36 L (12.00-45.00) Ferritin 1355.5 H (10.0-291.0) ng/mL Total Protein (6.3-8.2) g/dL 05/30/17 05/30/17 05/30/17 Range/Units 06:00 06:00 06:00 RBC 3.37 L (3.80-5.40) m/uL Hgb 10.1 L (11.4-16.0) gm/dL Hct 33.5 L (34.0-46.0) % MCHC 30.3 L (31.0-37.0) g/dL RDW 17.5 H (11.5-15.5) % Neutrophils # 8.0 H (1.3-7.7) k/uL Lymphocytes # 0.9 L (1.0-4.8) k/uL BUN 32 H (7-17) mg/dL Creatinine 5.34 H* (0.52-1.04) mg/dL Glucose 170 H (74-99) mg/dL POC Glucose (mg/dL) (75-99) mg/dL Hemoglobin A1c (4.0-6.0) % Phosphorus 5.5 H (2.5-4.5) mg/dL Iron (50-170) ug/dL TIBC (228-460) ug/dL Iron Saturation (12.00-45.00) Ferritin (10.0-291.0) ng/mL Total Protein 6.2 L (6.3-8.2) g/dL 05/30/17 05/30/17 05/30/17 Range/Units 11:29 16:50 20:47 RBC (3.80-5.40) m/uL Hgb (11.4-16.0) gm/dL Hct (34.0-46.0) % MCHC (31.0-37.0) g/dL RDW (11.5-15.5) % Neutrophils # (1.3-7.7) k/uL Lymphocytes # (1.0-4.8) k/uL BUN (7-17) mg/dL Creatinine (0.52-1.04) mg/dL Glucose (74-99) mg/dL POC Glucose (mg/dL) 250 H 154 H 134 H (75-99) mg/dL Hemoglobin A1c (4.0-6.0) % Phosphorus (2.5-4.5) mg/dL Iron (50-170) ug/dL TIBC (228-460) ug/dL Iron Saturation (12.00-45.00) Ferritin (10.0-291.0) ng/mL Total Protein (6.3-8.2) g/dL Laboratory Results WBC 9.5 k/uL (3.8-10.6) 05/30/17 06:00 RBC 3.37 m/uL (3.80-5.40) L 05/30/17 06:00 Hgb 10.1 gm/dL (11.4-16.0) L 05/30/17 06:00 Hct 33.5 % (34.0-46.0) L 05/30/17 06:00 MCV 99.3 fL (80.0-100.0) 05/30/17 06:00 MCH 30.1 pg (25.0-35.0) 05/30/17 06:00 MCHC 30.3 g/dL (31.0-37.0) L 05/30/17 06:00 RDW 17.5 % (11.5-15.5) H 05/30/17 06:00 Plt Count 152 k/uL (150-450) 05/30/17 06:00 Neutrophils % 84 % 05/30/17 06:00 Lymphocytes % 10 % 05/30/17 06:00 Monocytes % 3 % 05/30/17 06:00 Eosinophils % 2 % 05/30/17 06:00 Basophils % 1 % 05/30/17 06:00 Neutrophils # 8.0 k/uL (1.3-7.7) H 05/30/17 06:00 Lymphocytes # 0.9 k/uL (1.0-4.8) L 05/30/17 06:00 Monocytes # 0.3 k/uL (0-1.0) 05/30/17 06:00 Eosinophils # 0.2 k/uL (0-0.7) 05/30/17 06:00 Basophils # 0.1 k/uL (0-0.2) 05/30/17 06:00 Hypochromasia Moderate 05/30/17 06:00 Anisocytosis Slight 05/30/17 06:00 Macrocytosis Slight 05/30/17 06:00 PT 10.5 sec (9.0-12.0) 05/28/17 14:00 INR 1.1 (<1.2) 05/28/17 14:00 APTT 21.6 sec (22.0-30.0) L 05/28/17 14:00 Sodium 137 mmol/L (137-145) 05/30/17 06:00 Potassium 4.1 mmol/L (3.5-5.1) 05/30/17 06:00 Chloride 98 mmol/L (98-107) 05/30/17 06:00 Carbon Dioxide 24 mmol/L (22-30) 05/30/17 06:00 Anion Gap 15 mmol/L 05/30/17 06:00 BUN 32 mg/dL (7-17) H 05/30/17 06:00 Creatinine 5.34 mg/dL (0.52-1.04) H* 05/30/17 06:00 Est GFR (MDRD) Af Amer 10 (>60 ml/min/1.73 sqM) 05/30/17 06:00 Est GFR (MDRD) Non-Af 8 (>60 ml/min/1.73 sqM) 05/30/17 06:00 Glucose 170 mg/dL (74-99) H 05/30/17 06:00 POC Glucose (mg/dL) 134 mg/dL (75-99) H 05/30/17 20:47 POC Glu Sap Pp Consultant [facility] Yoselyn Love 05/30/17 20:[address] Glu mg/dL 137 05/29/17 05:57 Hemoglobin A1c 6.4 % (4.0-6.0) H 05/29/17 05:57 Calcium 9.0 mg/dL (8.4-10.2) 05/30/17 06:00 Phosphorus 5.5 mg/dL (2.5-4.5) H 05/30/17 06:00 Iron 23 ug/dL (50-170) L 05/29/17 05:57 TIBC 222 ug/dL (228-460) L 05/29/17 05:57 Iron Saturation 10.36 (12.00-45.00) L 05/29/17 05:57 Ferritin 1355.5 ng/mL (10.0-291.0) H 05/29/17 05:57 Total Bilirubin 0.4 mg/dL (0.2-1.3) 05/30/17 06:00 AST 14 U/L (14-36) 05/30/17 06:00 ALT 31 U/L (9-52) 05/30/17 06:00 Alkaline Phosphatase 121 U/L (38-126) 05/30/17 06:00 Total Creatine Kinase 62 U/L (30-135) 05/28/17 12:25 CK-MB (CK-2) 2.8 ng/mL (0.0-2.4) H* 05/28/17 12:25 CK-MB (CK-2) Rel Index 4.5 05/28/17 12:25 Troponin I 0.499 ng/mL (0.000-0.034) H* 05/28/17 12:25 NT-Pro-B Natriuret Pep 37356 pg/mL 05/28/17 12:25 Total Protein 6.2 g/dL (6.3-8.2) L 05/30/17 06:00 Albumin 3.7 g/dL (3.5-5.0) 05/30/17 06:00 Influenza Type A RNA Not Detected (Not Detectd) 05/28/17 12:25 Influenza Type B (PCR) Not Detected (Not Detectd) 05/28/17 12:25 Assessment and Plan (1) ESRD (end stage renal disease) on dialysis Current Visit: No Status: Acute Code(s): N18.6 - END STAGE RENAL DISEASE; Z99.2 - DEPENDENCE ON RENAL DIALYSIS SNOMED Code(s): 516791103 (2) Pulmonary edema Current Visit: Yes Status: Acute Code(s): J81.1 - CHRONIC PULMONARY EDEMA SNOMED Code(s): 98444174 (3) Diabetes mellitus, type II Current Visit: No Status: Chronic Code(s): E11.9 - TYPE 2 DIABETES MELLITUS WITHOUT COMPLICATIONS SNOMED Code(s): 49282354 (4) Cellulitis of right lower extremity Narrative/Plan: 62-year-old woman presents to Hospital feeling poorly with some shortness of breath increasing lower extremity edema and pain to her right leg. She had missed a dialysis session and was volume overloaded. Has had an urgent dialysis session with some improvement in improvement of her hypokalemia. She was having difficulty with the pain to the right leg is noted to have some erythema some distinct tenderness and some point tenderness. Duplex scan is performed and is negative for deep venous thrombosis. There was some mild leukocytosis also that is improved. Influenza testing is negative. At this time there is a cellulitis of the right lower extremity causing the swelling erythema and tenderness at that site. Antibiotic therapy is initiated with vancomycin given her ALLERGIES. No other significant source of infection is seen. It appears that she is having volume overload possibly from lack of dialysis and chronic congestive heart failure causing the chest x-ray changes consistent with congestive heart failure. Continue dialysis and elevation the lower extremities will help the resolution of the current cellulitis. Doing well with antibiotic therapy with vancomycin. Current Visit: Yes Status: Acute Code(s): L03.115 - CELLULITIS OF RIGHT LOWER LIMB SNOMED Code(s): 653301246
[2017-05-30] MEDS ORDERED: VANCOMYCIN 1,500 MG in SODIUM CHLORIDE 0.9% 250 ML IVPB ONE (23:00)
[2017-05-31] MEDS: ONDANSETRON 4 MG/2 ML VIAL IVP PRN (02:30)
[2017-05-31 06:05] LABS: Glucose,Whole Blood 164 mg/dL (75-99)
[2017-05-31] MEDS: PANTOPRAZOLE 40 MG TABLET PO SCH ×2 (06:36→17:12)
[2017-05-31] MEDS: INSULIN ASPART 100 UNIT/ML 1 ML 10 ML VIAL SQ SCH ×3 (06:43→17:12)
[2017-05-31 06:49] LABS: Anisocytosis Slight; Basophils % (A) 0 %; Eosinophils # (A) 0.3 k/uL (0-0.7); Eosinophils % (A) 4 %; HGB 9.2 gm/dL (11.4-16.0); Hypochromasia Slight; Lymphocytes # (A) 0.7 k/uL (1.0-4.8); Lymphocytes % (A) 8 %; MCHC 30.7 g/dL (31.0-37.0); MCV 97.6 fL (80.0-100.0); Macrocytosis Slight; Mean Platelet Volume 8.1; Monocytes # (A) 0.3 k/uL (0-1.0); Monocytes % (A) 4 %; Neutrophils # (A) 7.2 k/uL (1.3-7.7); Neutrophils % (A) 83 %; Platelet Count 164 k/uL (150-450); RBC 3.08 m/uL (3.80-5.40); RDW 17.5 % (11.5-15.5); WBC 8.7 k/uL (3.8-10.6)
[2017-05-31] MEDS: IPRATROPIUM-ALBUTEROL 3 ML NEB INHALATION SCH ×4 (08:02→19:06)
[2017-05-31] MEDS: GABAPENTIN 100 MG CAP PO SCH ×2 (08:24→20:07)
[2017-05-31] MEDS: ASPIRIN 81 MG PO SCH (08:24)
[2017-05-31] MEDS: ACETAMINOPHEN TAB 325 MG TAB PO PRN ×3 (08:24→22:57)
[2017-05-31] MEDS: HEPARIN SODIUM,PORCINE 5,000 UNIT/ML 1 ML VIAL SQ SCH ×2 (08:24→20:08)
[2017-05-31] MEDS: MIDODRINE 5 MG TAB PO SCH ×2 (08:24→15:39)
[2017-05-31] MEDS: ALLOPURINOL 100 MG TAB PO SCH (08:24)
[2017-05-31] MEDS: FERROUS SULFATE 325 MG TAB PO SCH ×2 (09:47→20:07)
[2017-05-31 11:35] LABS: Glucose,Whole Blood 157 mg/dL (75-99)
--- NOTE | 2017-05-31 12:45 | P.PN ---
Subjective Progress Note Date: 05/31/17 This is a 62-year-old female with a known past medical history of end-stage renal disease on hemodialysis, diabetes mellitus, myocardial infarction, coronary artery disease with previous cardiac stents and coronary bypass grafting. Patient presents to the emergency room with complaints of cough and shortness of breath with nighttime fevers for about a week. Also complaining of pain in the lower extremities in the calf area with redness noted along the medial aspects of both legs coming up into the thighs. Patient reports no injury to the legs. She had missed her hemodialysis on Sunday due to her leg pain and cough. She presented to the emergency room for further evaluation and treatment. She required dialysis in the emergency room yesterday and again she' ll receive dialysis today. BNP was elevated at 62,100 troponin elevated at 0.499. Cardiology, nephrology and infectious disease has been consulted. Venous Doppler of the lower extremities are negative for DVT. ER report patient apparently had had some chest pain. However now she is not complaining of any chest pain. She denies any nausea or vomiting. Denies any bowel movement changes or urinary symptoms. Influenza screen was negative. EKG shows normal sinus rhythm. Chest x-ray small left pleural effusion, left basal atelectasis and mild coronary vascular congestion /interstitial edema likely on the basis of decompensated congestive heart failure. 05/31/2017 patient had hemodialysis yesterday. She reports she started having vomiting to the night after hemodialysis. It is now resolved. She also still complaining of a productive cough. Repeat chest x-rays been ordered. Patient denies any chest pain. Does report some improvement in her shortness of breath. Denies any bowel movement changes. Objective - Vital Signs Vital signs: Vital Signs Temp 97 F L 05/31/17 11:44 Pulse 90 05/31/17 11:44 Resp 16 05/31/17 12:00 BP 85/56 05/31/17 11:44 Pulse Ox 98 05/31/17 11:44 Intake & Output 05/30/17 05/31/17 05/31/17 18:59 06:59 18:59 Intake Total 218 250 Output Total 0 0 Balance 218 250 Weight 79.4 kg Intake: Intake, IV Titration 250 Amount Vancomycin 1,500 mg In 250 Sodium Chloride 0.9% 250 ml @ 125 mls/hr IVPB ONCE ONE Rx#:[id number] Oral 218 Output: Urine 0 0 Other: Voiding Method Toilet Toilet Toilet # Voids 0 1 - Exam Head normocephalic Neck supple Lungs improvement in air movement with some coarse breath sounds Heart regular rate and rhythm S1-S2, no rub or gallop Abdomen is soft nontender nondistended positive bowel sounds no hepatosplenomegaly Extremities no edema Neuro alert and orientated to 3 - Labs CBC & Chem 7: 05/31/17 05:43 05/30/17 06:00 Labs: Abnormal Lab Results - Last 24 Hours (Table) 05/30/17 05/30/17 05/31/17 Range/Units 16:50 20:47 05:43 RBC 3.08 L (3.80-5.40) m/uL Hgb 9.2 L (11.4-16.0) gm/dL Hct 30.0 L (34.0-46.0) % MCHC 30.7 L (31.0-37.0) g/dL RDW 17.5 H (11.5-15.5) % Lymphocytes # 0.7 L (1.0-4.8) k/uL POC Glucose (mg/dL) 154 H 134 H (75-99) mg/dL 05/31/17 05/31/17 Range/Units 06:01 11:26 RBC (3.80-5.40) m/uL Hgb (11.4-16.0) gm/dL Hct (34.0-46.0) % MCHC (31.0-37.0) g/dL RDW (11.5-15.5) % Lymphocytes # (1.0-4.8) k/uL POC Glucose (mg/dL) 164 H 157 H (75-99) mg/dL Assessment and Plan Assessment: 1. Acute systolic CHF exacerbation: Echo from November 2016 shows an EF of 40-45%. BNP elevated at 62,100. Cardiology and nephrology following. Likely fluid overload due to missing hemodialysis on Sunday. 2. Right lower extremity cellulitis: Patient has ALLERGY to penicillin and Keflex. Currently on vancomycin. Cellulitis has improved . Doppler of bilateral lower extremities negative for DVT 3. Acute tracheobronchitis. No evidence of pneumonia on chest x-ray. Repeat chest x-ray. Check sputum culture 4. End stage renal disease on hemodialysis 5. Insulin-dependent diabetes mellitus. A1c 6.4 6. History of myocardial infarction and coronary disease with cardiac stent previous CABG 7. Anemia of chronic kidney disease and evidence of iron deficiency anemia. Patient started ferrous sulfate 325 mg twice DVT prophylaxis subcu heparin
[2017-05-31 12:50] LABS: Albumin 3.4 g/dL (3.5-5.0); Calcium 8.9 mg/dL (8.4-10.2); Potassium 4.3 mmol/L (3.5-5.1); Total Bilirubin 0.2 mg/dL (0.2-1.3); Total Protein 5.9 g/dL (6.3-8.2)
--- NOTE | 2017-05-31 13:32 | P.PN ---
Subjective Progress Note Date: 05/31/17 This is a 62-year-old female with known history of coronary artery disease and prior bypass surgery as well as PCI, end-stage renal disease on hemodialysis, diabetes, hypertension, hyperlipidemia, family history of premature coronary artery disease, she presented to the hospital with symptoms of progressively worsening shortness of breath, she had missed her dialysis. Patient was also in [place] between and , she was admitted to the hospital underwent cardiac catheterization, under similar to her recent cath which was performed here. Patient was seen and examined this morning, she does state that her breathing is mildly improved today overall, continues to have a cough, mild nausea this morning. She did undergo dialysis yesterday and is scheduled again for dialysis today. Hemoglobin 10.1, BUN 32, creatinine 5.3. Echoardiogram with Doppler study was performed which revealed an ejection fraction of 25-30%. 05/30/2017 Patient seen and examined this morning, had some nausea and vomiting following her dialysis. Patient was also complaining earlier of some chest discomfort with coughing, appeared to be very pleuritic. From cardiology's perspective, she may be able to be discharged home today. We will make her a follow-up appointment with Dr. Rothman. Objective - Vital Signs Vital signs: Vital Signs Temp 97 F L 05/31/17 11:44 Pulse 90 05/31/17 11:44 Resp 16 05/31/17 12:00 BP 85/56 05/31/17 11:44 Pulse Ox 98 05/31/17 11:44 Intake & Output 05/30/17 05/31/17 05/31/17 18:59 06:59 18:59 Intake Total 218 250 Output Total 0 0 Balance 218 250 Weight 79.4 kg Intake: Intake, IV Titration 250 Amount Vancomycin 1,500 mg In 250 Sodium Chloride 0.9% 250 ml @ 125 mls/hr IVPB ONCE ONE Rx#:[id number] Oral 218 Output: Urine 0 0 Other: Voiding Method Toilet Toilet Toilet # Voids 0 1 - Exam PHYSICAL EXAMINATION: HEENT: Head is atraumatic, normocephalic. Pupils equal, round. Neck is supple. There is no elevated jugular venous pressure. HEART EXAMINATION: Heart S1 and S2 with systolic murmur is heard. CHEST EXAMINATION: Lungs are clear to auscultation and precussion. No chest wall tenderness is noted on palpation or with deep breathing. ABDOMEN: Soft, nontender. Bowel sounds are heard. No organomegaly noted. EXTREMITIES: 2+ peripheral pulses with no evidence of peripheral edema and no calf tenderness noted. NEUROLOGIC patient is awake, alert and oriented -3. . - Labs CBC & Chem 7: 05/31/17 05:43 05/31/17 05:43 Labs: Abnormal Lab Results - Last 24 Hours (Table) 05/30/17 05/30/17 05/31/17 Range/Units 16:50 20:47 05:43 RBC 3.08 L (3.80-5.40) m/uL Hgb 9.2 L (11.4-16.0) gm/dL Hct 30.0 L (34.0-46.0) % MCHC 30.7 L (31.0-37.0) g/dL RDW 17.5 H (11.5-15.5) % Lymphocytes # 0.7 L (1.0-4.8) k/uL BUN (7-17) mg/dL Creatinine (0.52-1.04) mg/dL Glucose (74-99) mg/dL POC Glucose (mg/dL) 154 H 134 H (75-99) mg/dL AST (14-36) U/L Total Protein (6.3-8.2) g/dL Albumin (3.5-5.0) g/dL 05/31/17 05/31/17 05/31/17 Range/Units 05:43 06:01 11:26 RBC (3.80-5.40) m/uL Hgb (11.4-16.0) gm/dL Hct (34.0-46.0) % MCHC (31.0-37.0) g/dL RDW (11.5-15.5) % Lymphocytes # (1.0-4.8) k/uL BUN 22 H (7-17) mg/dL Creatinine 4.10 H (0.52-1.04) mg/dL Glucose 166 H (74-99) mg/dL POC Glucose (mg/dL) 164 H 157 H (75-99) mg/dL AST 13 L (14-36) U/L Total Protein 5.9 L (6.3-8.2) g/dL Albumin 3.4 L (3.5-5.0) g/dL Assessment and Plan Plan: Assessment and plan #1 worsening dyspnea, after missing dialysis. Feeling much better overall today. Patient did have dialysis yesterday and again today is scheduled for dialysis. #2 minimal elevation of troponin, does not reflect acute coronary syndrome, likely secondary to abnormal renal function. Patient did have a cardiac catheterization performed over the holidays in [place], results which were unchanged from the most recent cath performed here in March. #3 known history of coronary artery disease with prior bypass surgery and PCI as #4 hypertension Number 5 hyperlipidemia #6 diabetes #7 end-stage renal disease on hemodialysis Plan From cardiology's perspective, patient may be able to be discharged home today. We will make her a follow-up appointment with Dr. Rothman in the office post discharge. DNP note has been reviewed, I agree with a documented findings and plan of care. Patient was seen and examined.
--- NOTE | 2017-05-31 14:37 | PN ---
PROGRESS NOTE Patient is seen for followup for end-stage renal disease, currently lying in bed. She is comfortable. The patient states she had 2 episodes of this morning. EXAMINATION: Blood pressure is low at 88 to 50, heart rate of 90 per minute. She is afebrile. Examination of the heart: S1, S2. Exam lungs: Bilateral breath sounds are heard. Abdomen is soft, nontender. Examination extremities shows no evidence of edema. [employer] FR[employer] CH[employer]ER exam is grossly intact. LABS: Sodium 141, potassium 4.3, hemoglobin 9.2 g/dL. ASSESSMENT: 1. End-stage renal disease, on hemodialysis on a Sunday, Sunday, Sunday schedule. 2. Fluid overload currently improved. 3. Hyperkalemia on admission, now improved with dialysis. 4. Hypotension. Patient normally runs on the lower side and is maintained on midodrine as outpatient and she continues at 10 mg b.i.d. here. 5. CKD mineral bone disorder maintained on Sensipar. 6. Hyperuricemia on allopurinol. PLAN: Hemodialysis in a.m. We will avoid aggressive ultrafiltration with dialysis tomorrow. However, it is the weekend, therefore, depending on her blood pressure will try about 1- 2 L. MMODL / IJN: [id number] /
--- NOTE | 2017-05-31 14:47 | XR ---
EXAMINATION TYPE: XR chest 2V DATE OF EXAM: 05/31/2017 COMPARISON:CXR from 05-28-2107. HISTORY: Deep cough. TECHNIQUE: Frontal and lateral views of the chest are obtained. FINDINGS: CABG changes with basal clips and sternal wires is redemonstrated. There is persisting card iomegaly with small left pleural effusion and associated left basilar atelectasis and/or infiltrate. Right lung remains clear. The osseous structures are intact. IMPRESSION: Persisting cardiomegaly with mild central vascular congestion and small left pleural eff usion and left basilar atelectasis and/or infiltrate all redemonstrated. No significant change from p rior.
[2017-05-31 16:37] LABS: Glucose,Whole Blood 142 mg/dL (75-99)
[2017-05-31] MEDS: guaiFENesin SYRUP 100MG/5ML 200 MG/10 ML CUP PO PRN (19:19)
[2017-05-31] MEDS: ATORVASTATIN 40 MG TAB PO SCH (20:07)
[2017-05-31] MEDS: CINACALCET 30 MG TAB PO SCH (20:07)
[2017-05-31] MEDS: CLOPIDOGREL 75 MG TAB PO SCH (20:07)
[2017-05-31] MEDS: SERTRALINE 50 MG TAB PO SCH (20:08)
[2017-05-31] MEDS: MONTELUKAST 10 MG TAB PO SCH (20:08)
[2017-05-31 20:49] LABS: Glucose,Whole Blood 310 mg/dL (75-99)
[2017-05-31] MEDS: INSULIN DETEMIR 100 UNIT/ML 10 ML VIAL SQ SCH (21:51)
--- NOTE | 2017-05-31 22:37 | P.PN ---
Subjective Progress Note Date: 05/31/17 Principal diagnosis: Shortness of breath 62-year-old female presents to Hospital feeling very poorly. She's having increasing amounts of shortness of breath. She was noticed to have worsening of her chronic renal failure with an elevation of her creatinine and evidence of hyperkalemia. She subsequently was treated. She's also had initiation of some dialysis to help with her volume overload. She missed dialysis last week and thought to be why she was volume overloaded and having some hyperkalemia. Things are better today. Was having ongoing difficulties were right lower extremity. She has some swelling in distinct tenderness along the medial aspect of the calf and thigh just proximal to the knee. She relates no trauma or acute changes. She has had a vein harvested this area because of her coronary artery bypass grafting procedure so years ago. She relates that she's not had this distinct problem the past of the swelling but erythema and tenderness to the site. Duplexes were performed without evidence of deep venous thrombosis. The patient believes she may have had a fever but no current denies recent chills or rigors but feels quite poorly overall. Her profound shortness of breath is now much improved now with her third dialysis session occurring. Her significant pain and erythema to the right leg is improved. Relates to see me in nausea and emesis overnight is not is feeling better today at lunch. Objective - Vital Signs Vital signs: Vital Signs Temp 98 F 05/31/17 20:00 Pulse 94 05/31/17 20:00 Resp 16 05/31/17 20:00 BP 87/52 05/31/17 20:00 Pulse Ox 94 L 05/31/17 20:00 Intake & Output 05/31/17 05/31/17 06/01/17 06:59 18:59 06:59 Intake Total 250 218 10 Output Total 0 0 Balance 250 218 10 Weight 79.4 kg Intake: IV 10 0.9 10 Intake, IV Titration 250 Amount Vancomycin 1,500 mg In 250 Sodium Chloride 0.9% 250 ml @ 125 mls/hr IVPB ONCE ONE Rx#:[id number] Oral 218 Output: Urine 0 0 Other: Voiding Method Toilet Toilet Toilet # Voids 0 1 - Exam 62-year-old woman who is modestly comfortable at this time is less short of breath and admission HEENT: Anicteric conjunctiva are pink and moist nasal mucosa grossly intact without significant lesions, there is no thrush. Full denture in place Neck: The neck is supple without significant lymphadenopathy or thyromegaly. Lungs: They're symmetrical bilateral air entry with basilar crackles being heard. Few wheezes are also heard. No gerber bronchial sounds no dullness or egophony Heart: Irregular with an audible S1 and S2 soft S4 there is no click or rub but there is evidence of the holosystolic murmur PMI was nondisplaced Abdomen: Mildly obese, Positive bowel sounds soft and nontender without palpable masses or organomegaly. There was no guarding or rebound. Extremities: The upper extremities are intact. She is evidence of the cadaver fistula into the left upper extremity that has an easily palpated thrill and bruit is present lower extremities have trace edema. No significant open ulcers are seen. The right lower extremity has evidence of improvement of the warmth that is present from the calf to the very distal aspect of the medial thigh. There some distinct tenderness area also. There is no significant tenderness into the right groin. The lymphadenopathy is resolved left inguinal , also no lymphadenopathy cervical supraclavicular axillary or epitrochlear this time. Neuro: Awake alert oriented to person place and time. There are no acute new gross focal sensory motor deficits. - Labs CBC & Chem 7: 05/31/17 05:43 05/31/17 05:43 Labs: Abnormal Lab Results - Last 24 Hours (Table) 05/31/17 05/31/17 05/31/17 Range/Units 05:43 05:43 06:01 RBC 3.08 L (3.80-5.40) m/uL Hgb 9.2 L (11.4-16.0) gm/dL Hct 30.0 L (34.0-46.0) % MCHC 30.7 L (31.0-37.0) g/dL RDW 17.5 H (11.5-15.5) % Lymphocytes # 0.7 L (1.0-4.8) k/uL BUN 22 H (7-17) mg/dL Creatinine 4.10 H (0.52-1.04) mg/dL Glucose 166 H (74-99) mg/dL POC Glucose (mg/dL) 164 H (75-99) mg/dL AST 13 L (14-36) U/L Total Protein 5.9 L (6.3-8.2) g/dL Albumin 3.4 L (3.5-5.0) g/dL 05/31/17 05/31/17 05/31/17 Range/Units 11:26 16:28 20:47 RBC (3.80-5.40) m/uL Hgb (11.4-16.0) gm/dL Hct (34.0-46.0) % MCHC (31.0-37.0) g/dL RDW (11.5-15.5) % Lymphocytes # (1.0-4.8) k/uL BUN (7-17) mg/dL Creatinine (0.52-1.04) mg/dL Glucose (74-99) mg/dL POC Glucose (mg/dL) 157 H 142 H 310 H (75-99) mg/dL AST (14-36) U/L Total Protein (6.3-8.2) g/dL Albumin (3.5-5.0) g/dL Laboratory Results WBC 8.7 k/uL (3.8-10.6) 05/31/17 05:43 RBC 3.08 m/uL (3.80-5.40) L 05/31/17 05:43 Hgb 9.2 gm/dL (11.4-16.0) L 05/31/17 05:43 Hct 30.0 % (34.0-46.0) L 05/31/17 05:43 MCV 97.6 fL (80.0-100.0) 05/31/17 05:43 MCH 30.0 pg (25.0-35.0) 05/31/17 05:43 MCHC 30.7 g/dL (31.0-37.0) L 05/31/17 05:43 RDW 17.5 % (11.5-15.5) H 05/31/17 05:43 Plt Count 164 k/uL (150-450) 05/31/17 05:43 Neutrophils % 83 % 05/31/17 05:43 Lymphocytes % 8 % 05/31/17 05:43 Monocytes % 4 % 05/31/17 05:43 Eosinophils % 4 % 05/31/17 05:43 Basophils % 0 % 05/31/17 05:43 Neutrophils # 7.2 k/uL (1.3-7.7) 05/31/17 05:43 Lymphocytes # 0.7 k/uL (1.0-4.8) L 05/31/17 05:43 Monocytes # 0.3 k/uL (0-1.0) 05/31/17 05:43 Eosinophils # 0.3 k/uL (0-0.7) 05/31/17 05:43 Basophils # 0.0 k/uL (0-0.2) 05/31/17 05:43 Hypochromasia Slight 05/31/17 05:43 Anisocytosis Slight 05/31/17 05:43 Macrocytosis Slight 05/31/17 05:43 PT 10.5 sec (9.0-12.0) 05/28/17 14:00 INR 1.1 (<1.2) 05/28/17 14:00 APTT 21.6 sec (22.0-30.0) L 05/28/17 14:00 Sodium 141 mmol/L (137-145) 05/31/17 05:43 Potassium 4.3 mmol/L (3.5-5.1) 05/31/17 05:43 Chloride 98 mmol/L (98-107) 05/31/17 05:43 Carbon Dioxide 29 mmol/L (22-30) 05/31/17 05:43 Anion Gap 14 mmol/L 05/31/17 05:43 BUN 22 mg/dL (7-17) H 05/31/17 05:43 Creatinine 4.10 mg/dL (0.52-1.04) H 05/31/17 05:43 Est GFR (MDRD) Af Amer 13 (>60 ml/min/1.73 sqM) 05/31/17 05:43 Est GFR (MDRD) Non-Af 11 (>60 ml/min/1.73 sqM) 05/31/17 05:43 Glucose 166 mg/dL (74-99) H 05/31/17 05:43 POC Glucose (mg/dL) 310 mg/dL (75-99) H 05/31/17 20:47 POC Glu Hatchery Worker BEBE Yoselyn Love 05/31/17 20:[address] Glu mg/dL 137 05/29/17 05:57 Hemoglobin A1c 6.4 % (4.0-6.0) H 05/29/17 05:57 Calcium 8.9 mg/dL (8.4-10.2) 05/31/17 05:43 Phosphorus 5.5 mg/dL (2.5-4.5) H 05/30/17 06:00 Iron 23 ug/dL (50-170) L 05/29/17 05:57 TIBC 222 ug/dL (228-460) L 05/29/17 05:57 Iron Saturation 10.36 (12.00-45.00) L 05/29/17 05:57 Ferritin 1355.5 ng/mL (10.0-291.0) H 05/29/17 05:57 Total Bilirubin 0.2 mg/dL (0.2-1.3) 05/31/17 05:43 AST 13 U/L (14-36) L 05/31/17 05:43 ALT 26 U/L (9-52) 05/31/17 05:43 Alkaline Phosphatase 120 U/L (38-126) 05/31/17 05:43 Total Creatine Kinase 62 U/L (30-135) 05/28/17 12:25 CK-MB (CK-2) 2.8 ng/mL (0.0-2.4) H* 05/28/17 12:25 CK-MB (CK-2) Rel Index 4.5 05/28/17 12:25 Troponin I 0.499 ng/mL (0.000-0.034) H* 05/28/17 12:25 NT-Pro-B Natriuret Pep 83847 pg/mL 05/28/17 12:25 Total Protein 5.9 g/dL (6.3-8.2) L 05/31/17 05:43 Albumin 3.4 g/dL (3.5-5.0) L 05/31/17 05:43 Random Vancomycin 29.1 ug/mL 05/31/17 05:43 Influenza Type A RNA Not Detected (Not Detectd) 05/28/17 12:25 Influenza Type B (PCR) Not Detected (Not Detectd) 05/28/17 12:25 Assessment and Plan (1) ESRD (end stage renal disease) on dialysis Current Visit: No Status: Acute Code(s): N18.6 - END STAGE RENAL DISEASE; Z99.2 - DEPENDENCE ON RENAL DIALYSIS SNOMED Code(s): 650641954 (2) Pulmonary edema Current Visit: Yes Status: Acute Code(s): J81.1 - CHRONIC PULMONARY EDEMA SNOMED Code(s): 49659297 (3) Diabetes mellitus, type II Current Visit: No Status: Chronic Code(s): E11.9 - TYPE 2 DIABETES MELLITUS WITHOUT COMPLICATIONS SNOMED Code(s): 70923285 (4) Cellulitis of right lower extremity Narrative/Plan: 62-year-old woman presents to Hospital feeling poorly with some shortness of breath increasing lower extremity edema and pain to her right leg. She had missed a dialysis session and was volume overloaded. Has had an urgent dialysis session with some improvement in improvement of her hypokalemia. She was having difficulty with the pain to the right leg is noted to have some erythema some distinct tenderness and some point tenderness. Duplex scan is performed and is negative for deep venous thrombosis. There was some mild leukocytosis also that is improved. Influenza testing is negative. At this time there is a cellulitis of the right lower extremity causing the swelling erythema and tenderness at that site. Antibiotic therapy is initiated with vancomycin given her ALLERGIES. No other significant source of infection is seen. It appears that she is having volume overload possibly from lack of dialysis and chronic congestive heart failure causing the chest x-ray changes consistent with congestive heart failure. Continue dialysis and elevation of the lower extremities will help the resolution of the current cellulitis. Doing well with antibiotic therapy with vancomycin. We'll plan on 1 further dose of vancomycin with next dialysis session which she didn't complete the treatment for her cellulitis. Had significant nausea and emesis. This is now improved. Possibly related to her multiple dialysis sessions in the row. Current Visit: Yes Status: Acute Code(s): L03.115 - CELLULITIS OF RIGHT LOWER LIMB SNOMED Code(s): 016968094
[2017-06-01] MEDS: guaiFENesin SYRUP 100MG/5ML 200 MG/10 ML CUP PO PRN ×2 (00:01→03:38)
[2017-06-01] MEDS: ACETAMINOPHEN TAB 325 MG TAB PO PRN (03:38)
[2017-06-01 05:56] LABS: Glucose,Whole Blood 152 mg/dL (75-99)
[2017-06-01] MEDS: INSULIN ASPART 100 UNIT/ML 1 ML 10 ML VIAL SQ SCH ×3 (06:29→17:31)
[2017-06-01] MEDS: PANTOPRAZOLE 40 MG TABLET PO SCH (06:29)
[2017-06-01 06:38] LABS: Anisocytosis Slight; Basophils % (A) 0 %; Eosinophils # (A) 0.5 k/uL (0-0.7); Eosinophils % (A) 5 %; HCT 31.3 % (34.0-46.0); HGB 9.8 gm/dL (11.4-16.0); Hypochromasia Moderate; Lymphocytes # (A) 1.4 k/uL (1.0-4.8); Lymphocytes % (A) 16 %; MCH 30.6 pg (25.0-35.0); MCHC 31.4 g/dL (31.0-37.0); MCV 97.4 fL (80.0-100.0); Macrocytosis Slight; Monocytes # (A) 0.4 k/uL (0-1.0); Monocytes % (A) 4 %; Neutrophils # (A) 6.3 k/uL (1.3-7.7); Neutrophils % (A) 73 %; Platelet Count 174 k/uL (150-450); RBC 3.21 m/uL (3.80-5.40); RDW 17.4 % (11.5-15.5); WBC 8.7 k/uL (3.8-10.6)
[2017-06-01 06:49] LABS: Albumin 3.8 g/dL (3.5-5.0); Calcium 9.4 mg/dL (8.4-10.2); Magnesium 1.6 mg/dL (1.6-2.3); Potassium 4.2 mmol/L (3.5-5.1); Total Bilirubin 0.5 mg/dL (0.2-1.3); Total Protein 6.2 g/dL (6.3-8.2)
[2017-06-01 08:05] VITALS: TEMP 96.9
[2017-06-01] MEDS: FERROUS SULFATE 325 MG TAB PO SCH (08:06)
[2017-06-01] MEDS: ASPIRIN 81 MG PO SCH (08:06)
[2017-06-01] MEDS: MIDODRINE 5 MG TAB PO SCH ×2 (08:06→15:47)
[2017-06-01] MEDS: GABAPENTIN 100 MG CAP PO SCH (08:06)
[2017-06-01] MEDS: ALLOPURINOL 100 MG TAB PO SCH (08:06)
[2017-06-01] MEDS: HEPARIN SODIUM,PORCINE 5,000 UNIT/ML 1 ML VIAL SQ SCH (08:06)
[2017-06-01] MEDS: IPRATROPIUM-ALBUTEROL 3 ML NEB INHALATION SCH ×3 (08:15→16:02)
[2017-06-01 11:31] LABS: Glucose,Whole Blood 125 mg/dL (75-99)
[2017-06-01 11:36] VITALS: BP 132/72; PULSE 82; RESP 16
--- NOTE | 2017-06-01 13:20 | PN ---
PROGRESS NOTE Mrs. Mcqueen is a 62-year-old female with known history of coronary artery disease, history of end-stage renal disease on hemodialysis, who presented with symptoms of dyspnea after she missed her dialysis. She is feeling better today. During the night, she was dyspneic. She has been receiving dialysis today. She denies any dizziness, palpitation. She denies any nausea. She has continued to be at this time on aspirin 81 mg daily, Lipitor 4 mg daily, Coreg 3.125 mg twice a day, Plavix 75 mg daily, gabapentin, insulin, midodrine, singular 10 mg daily, and vancomycin. PHYSICAL EXAMINATION: Blood pressure 132/70 with a heart rate in the 80s. LUNGS: No wheezes or rales. HEART: Regular rate and rhythm, S1, S2. No S3 with a systolic murmur. No diastolic murmur. ABDOMEN: Soft, nontender. EXTREMITIES: No edema. LAB DATA: Revealed potassium 4.2, BUN and creatinine 35 and 5.89, hemoglobin of 9.8. IMPRESSION: 1. History of coronary artery disease with recent cardiac catheterization done that showed no significant progression of disease. 2. End-stage renal disease. 3. Dyspnea related to her missing her dialysis, improved. 4. Hyperlipidemia. 5. Diabetes mellitus. RECOMMENDATION: From the cardiac standpoint, stable. I would expect she should be able to be discharged home soon and followed as an outpatient. Will see her on as-needed basis. Please feel free to call us for any questions. MMODL / IJN: [id number] /
--- NOTE | 2017-06-01 15:10 | P.DS ---
Providers Date of admission: 05/28/17 15:30 Expected date of discharge: 06/01/17 Attending physician: Kyle Campos Consults: 05/28/17 15:30 Consult Physician Urgent Consulting Provider: Gricelda Andrea Consult Reason/Comments: Renal failure Do you want consulting provider notified?: Yes 05/28/17 22:13 Consult Physician Urgent Consulting Provider: Haseeb Cuenca Consult Reason/Comments: ELEVATED TROPONIN/ELEVATED BNP Do you want consulting provider notified?: Yes, Notify in am 05/29/17 10:01 Consult Physician Routine Consulting Provider: Allen Cunningham Consult Reason/Comments: bilateral leg cellulitis Do you want consulting provider notified?: Yes Primary care physician: Kylepiyush Campos [facility] Course: Discharge diagnosis 1. Acute systolic CHF exacerbation: Echo from November 2016 shows an EF of 40-45%. BNP elevated at 62,100. Cardiology and nephrology following. Likely fluid overload due to missing hemodialysis on Sunday. Symptoms have improved. She has been cleared by cardiology for discharge 2. Right lower extremity cellulitis: Patient has ALLERGY to penicillin and Keflex. Patient treated with IV vancomycin. She was evaluated by infectious disease. They're recommending no further antibiotics. Doppler of bilateral lower extremities negative for DVT 3. Acute tracheobronchitis. No evidence of pneumonia on chest x-ray. Repeat chest x-ray showing atelectasis versus infiltrate. Patient is afebrile with no white count. We'll monitor off of antibiotics. Symptoms are improving. Will give her a prescription for Robitussin with codeine. And will follow-up with her in the office. Sputum culture pending at time of discharge 4. End stage renal disease on hemodialysis 5. Insulin-dependent diabetes mellitus. A1c 6.4 6. History of myocardial infarction and coronary disease with cardiac stent previous CABG 7. Anemia of chronic kidney disease and evidence of iron deficiency anemia. Patient started ferrous sulfate 325 mg twice Hospital course This is a 62-year-old female with a known past medical history of end-stage renal disease on hemodialysis, diabetes mellitus, myocardial infarction, coronary artery disease with previous cardiac stents and coronary bypass grafting. Patient presents to the emergency room with complaints of cough and shortness of breath with nighttime fevers for about a week. Also complaining of pain in the lower extremities in the calf area with redness noted along the medial aspects of both legs coming up into the thighs. Patient reports no injury to the legs. She had missed her hemodialysis on Sunday due to her leg pain and cough. She presented to the emergency room for further evaluation and treatment. She required dialysis in the emergency room yesterday and again she' ll receive dialysis today. BNP was elevated at 62,100 troponin elevated at 0.499. Cardiology, nephrology and infectious disease has been consulted. Venous Doppler of the lower extremities are negative for DVT. Patient received emergent dialysis in the ER for her fluid overload. She has been seen by nephrology and is resumed her regular hemodialysis schedule. She had hemodialysis again today. Cardiology has cleared patient for discharge. Her fluid overload has resolved. She also was treated for right lower extremity cellulitis with IV vancomycin per infectious disease. Her symptoms have resolved Dopplers are negative for DVT. And they're not recommending any antibiotics at discharge. Likely patient's cough could be more viral bronchitis. Influenza was negative. No significant pneumonia on chest x-ray. Repeat chest x-ray showed atelectasis versus infiltrate. However no elevated white count and no fever reported. Cough is showing improvement. Lungs are also improved. We'll continue with the Robitussin cough syrup Patient is medically stable. Please refer to chart for any further details. I performed an examination of the patient and discussed their management with the physician Claim Specialist. I have reviewed the Physician Claim Specialist's notes and agree with the documented findings and plan of care Patient Condition at Discharge: Stable Plan - Discharge Summary Discharge Rx Participant: No New Discharge Prescriptions: New Nitroglycerin Sl Tabs [Nitrostat] 0.4 mg SUBLINGUAL Q5M PRN #25 tab PRN Reason: Chest Pain Ferrous Sulfate [Iron (65 MG Elemental)] 325 mg PO BID #60 tab guaiFENesin-Coden 100-10MG/5ML [Robitussin AC] 5 ml PO Q6HR PRN #300 ml PRN Reason: Cough Continue Gabapentin [Neurontin] 100 mg PO BID Allopurinol [Zyloprim] 100 mg PO DAILY Omeprazole [PriLOSEC] 20 mg PO BID Insulin Glargine [Lantus] 35 unit SQ HS Mv-Min/Vit C/Glu/Karla HCl/Hc124 [Airborne Tablet Chewable] 1 tab PO QID PRN PRN Reason: IMMUNE HEALTH Loperamide [Imodium] 2 mg PO QID PRN PRN Reason: Diarrhea Sertraline [Zoloft] 50 mg PO HS Insulin Aspart [NovoLOG (formulary)] See Protocol SQ AC-TID Cinacalcet HCl [Sensipar] 30 mg PO HS Montelukast [Singulair] 10 mg PO HS #30 tab Carvedilol [Coreg] 3.125 mg PO BID PRN PRN Reason: HIGH BLOOD PRESSURE Atorvastatin [Lipitor] 40 mg PO HS Aspirin [Adult Low Dose Aspirin EC] 81 mg PO DAILY #30 tablet. Clopidogrel [Plavix] 75 mg PO HS #30 tab Midodrine HCl [ProAmatine] 10 mg PO BID Discontinued Nitroglycerin Sl Tabs [Nitrostat] 0.4 mg SUBLINGUAL Q5M PRN #25 tab PRN Reason: Chest Pain Discharge Medication List Allopurinol [Zyloprim] 100 mg PO DAILY 11/15/14 [History] Gabapentin [Neurontin] 100 mg PO BID 11/15/14 [History] Omeprazole [PriLOSEC] 20 mg PO BID 01/31/15 [History] Insulin Glargine [Lantus] 35 unit SQ HS 03/03/15 [History] Loperamide [Imodium] 2 mg PO QID PRN 03/03/15 [History] Mv-Min/Vit C/Glu/Karla HCl/Hc124 [Airborne Tablet Chewable] 1 tab PO QID PRN 03/03 [History] Sertraline [Zoloft] 50 mg PO HS 03/03/15 [History] Cinacalcet HCl [Sensipar] 30 mg PO HS 05/06/16 [History] Insulin Aspart [NovoLOG (formulary)] See Protocol SQ AC-TID 05/06/16 [History] Montelukast [Singulair] 10 mg PO HS #30 tab 06/30/16 [Rx] Atorvastatin [Lipitor] 40 mg PO HS 03/19/17 [History] Carvedilol [Coreg] 3.125 mg PO BID PRN 03/19/17 [History] Aspirin [Adult Low Dose Aspirin EC] 81 mg PO DAILY #30 tablet. 04/05/17 [Rx] Clopidogrel [Plavix] 75 mg PO HS #30 tab 04/05/17 [Rx] Midodrine HCl [ProAmatine] 10 mg PO BID 05/28/17 [History] Nitroglycerin Sl Tabs [Nitrostat] 0.4 mg SUBLINGUAL Q5M PRN #25 tab 05/31/17 [Rx ] Ferrous Sulfate [Iron (65 MG Elemental)] 325 mg PO BID #60 tab 06/01/17 [Rx] guaiFENesin-Coden 100-10MG/5ML [Robitussin AC] 5 ml PO Q6HR PRN #300 ml [Rx] Follow up Appointment(s)/Referral(s): Kyle Campos MD [Primary Care Provider] - 1 Week Activity/Diet/Wound Care/Special Instructions: Diet: cardiac, diabetic, renal Activity: as tolerated continue dialysis as scheduled Discharge Disposition: HOME SELF-CARE
[2017-06-01] MEDS: ONDANSETRON 4 MG/2 ML VIAL IVP PRN (15:47)
--- NOTE | 2017-06-01 15:50 | PN ---
PROGRESS NOTE Patient is seen for followup for end-stage renal disease. She is currently seen on dialysis. She is tolerating her treatment well. We are going for about 1.5 L. The patient's blood pressure is stable. On examination, heart rate about 98 per minute. Her pressure has been 121/60. Examination shows no evidence of edema in lower extremities. Abdomen is soft, nontender. [employer] exam is grossly intact. Labs show potassium 4.2, hemoglobin 9.8 g/dL. ASSESSMENT: 1. End-stage renal disease, on hemodialysis on a Sunday, Sunday, Sunday schedule. The patient is currently seen on dialysis. She can be discharged post dialysis. 2. Fluid overload, currently improved. 3. Hyperkalemia on initial admission, now resolved. 4. Anemia of chronic disease, maintained on Aranesp. PLAN: The patient can be discharged from nephrology standpoint after dialysis. She will follow up as outpatient with her outpatient schedule. MMMECCAL / SÁNCHEZN: [id number] /
== END 2017-06-01 17:32 | disposition home or self-care (01) | DRG 291 ==
LOC: EC 11:10 → 6SEL 15:30
PROVIDERS: ADMIT Internal Medicine; ATTEND Internal Medicine
DX: I13.2 Hypertensive heart and chronic kidney disease with heart failure and with stage 5 chronic kidney disease, or end stage renal disease (principal); N18.6 End stage renal disease; I95.9 Hypotension, unspecified; E11.22 Type 2 diabetes mellitus with diabetic chronic kidney disease; E11.40 Type 2 diabetes mellitus with diabetic neuropathy, unspecified; E87.5 Hyperkalemia; Z95.1 Presence of aortocoronary bypass graft; I50.21 Acute systolic (congestive) heart failure; L03.115 Cellulitis of right lower limb; I08.1 Rheumatic disorders of both mitral and tricuspid valves; J20.9 Acute bronchitis, unspecified; E87.70 Fluid overload, unspecified; D63.1 Anemia in chronic kidney disease; Z96.1 Presence of intraocular lens; E20.9 Hypoparathyroidism, unspecified; D50.9 Iron deficiency anemia, unspecified; E78.5 Hyperlipidemia, unspecified; M89.9 Disorder of bone, unspecified; M10.9 Gout, unspecified; I25.10 Atherosclerotic heart disease of native coronary artery without angina pectoris; Z88.1 Allergy status to other antibiotic agents; Z88.0 Allergy status to penicillin; Z79.4 Long term (current) use of insulin; I25.2 Old myocardial infarction; Z88.6 Allergy status to analgesic agent; Z91.013 Allergy to seafood; Z91.15 Patient's noncompliance with renal dialysis; Z88.8 Allergy status to other drugs, medicaments and biological substances; Z91.018 Allergy to other foods; Z91.048 Other nonmedicinal substance allergy status; Z79.899 Other long term (current) drug therapy; Z79.82 Long term (current) use of aspirin; Z79.02 Long term (current) use of antithrombotics/antiplatelets; Z83.3 Family history of diabetes mellitus; Z82.49 Family history of ischemic heart disease and other diseases of the circulatory system; Z99.2 Dependence on renal dialysis; Z98.41 Cataract extraction status, right eye; Z98.42 Cataract extraction status, left eye; Z87.440 Personal history of urinary (tract) infections
CPT/HCPCS: 36415; 71046; 80053; 80202; 82550; 82553; 82728; 83036; 83540; 83550; 83735; 83880; 84100; 84484; 85025; 85610; 85730; 87070; 87205; 87502; 90935; 93005; 93306; 93970; 94640; 94760; 96361; 96374; 96375; 99285

== ENCOUNTER 2017-06-05 07:02 | Inpatient (IN) | payer MEDICARE, BC ==
--- NOTE | 2017-06-05 07:47 | ED ---
General Adult HPI - General Chief complaint: Recheck/Abnormal Lab/Rx Stated complaint: low HR/BP Time Seen by Provider: 06/05/17 07:02 Source: patient, RN notes reviewed Mode of arrival: wheelchair Limitations: no limitations - History of Present Illness Initial comments: This is a 62-year-old female who states she was just released from the hospital on Sunday and since then she's been weak and tired and dizzy at home so she went to get dialysis at the [facility] today and when she got there they told her her heart rate was in the 40s and her blood pressure was 89 systolic. Patient then was sent to the emergency department. Patient currently states she still feels extremely weak she is denying any chest pain shortness of breath or difficulty breathing at this time. Patient denies any palpitations. Patient denies any recent fever chills or cough. Patient denies any headache. Patient denies abdominal pain patient denies nausea vomiting diarrhea per patient denies any leg swelling per patient denies any recent injury. - Related Data Home Medications Medication Instructions Recorded Confirmed Allopurinol [Zyloprim] 100 mg PO DAILY 11/15/14 06/05/17 Gabapentin [Neurontin] 100 mg PO BID 11/15/14 06/05/17 Omeprazole [PriLOSEC] 20 mg PO BID 01/31/15 06/05/17 Insulin Glargine [Lantus] 35 unit SQ HS 03/03/15 06/05/17 Loperamide [Imodium] 2 mg PO QID PRN 03/03/15 06/05/17 Mv-Min/Vit C/Glu/Karla HCl/Hc124 1 tab PO QID PRN 03/03/15 06/05/17 [Airborne Tablet Chewable] Sertraline [Zoloft] 50 mg PO HS 03/03/15 06/05/17 Cinacalcet HCl [Sensipar] 30 mg PO HS 05/06/16 06/05/17 Insulin Aspart [NovoLOG See Protocol SQ AC-TID 05/06/16 06/05/17 (formulary)] Atorvastatin [Lipitor] 40 mg PO HS 03/19/17 06/05/17 Carvedilol [Coreg] 3.125 mg PO BID PRN 03/19/17 06/05/17 Midodrine HCl [ProAmatine] 10 mg PO BID 05/28/17 06/05/17 Previous Rx's Medication Instructions Recorded Montelukast [Singulair] 10 mg PO HS #30 tab 06/30/16 Aspirin [Adult Low Dose Aspirin EC] 81 mg PO DAILY #30 tablet. 04/05/17 Clopidogrel [Plavix] 75 mg PO HS #30 tab 04/05/17 Nitroglycerin Sl Tabs [Nitrostat] 0.4 mg SUBLINGUAL Q5M PRN #25 tab 05/31/17 Allergies Allergy/AdvReac Type Severity Reaction Status Date / Time adhesive Allergy Rash/Hives Verified 06/05/17 07:47 cephalexin monohydrate Allergy Rash/Hives Verified 06/05/17 07:47 [From Keflex] hydromorphone HCl Allergy Hallucinati Verified 06/05/17 07:47 [From Dilaudid] ons iodine Allergy Rash/Hives Verified 06/05/17 07:47 Penicillins Allergy Unknown Verified 06/05/17 07:47 Childhood povidone-iodine Allergy Unknown Verified 06/05/17 07:47 [From Betadine] shellfish derived [Shrimp] Allergy Rash/Hives Verified 06/05/17 07:47 soap [From Betadine] Allergy Unknown Verified 06/05/17 07:47 codeine AdvReac Confusion Verified 06/05/17 07:47 fentanyl AdvReac Unknown Verified 06/05/17 07:47 hydrocodone bitartrate AdvReac Itching Verified 06/05/17 07:47 [From Vicodin] midazolam [From Versed] AdvReac Unknown Verified 06/05/17 07:47 morphine AdvReac Hallucinati Verified 06/05/17 07:47 ons tramadol AdvReac Itching Verified 06/05/17 07:47 artifical sweetener AdvReac Unknown Uncoded 06/05/17 07:09 Review of Systems ROS Statement: Those systems with pertinent positive or pertinent negative responses have been documented in the HPI. ROS Other: All systems not noted in ROS Statement are negative. Past Medical History Past Medical History: Coronary Artery Disease (CAD), Chest Pain / Angina, Diabetes Mellitus, Hyperlipidemia, Hypertension, Myocardial Infarction ([place]), Renal Disease, Thyroid Disorder Additional Past Medical History / Comment(s): MIs, IDDM type II, GOUT R foot, diabetic neuropathy bilateral feet and now "all over", chronic ANEMIA, MITRAL and TRICUSID REGURGITATION, esrd gets hemodialysis [id number]., UTIs, bronchitis, hypoparathyroid, wears O2 at 2L/NC during dialysis only-has had bradycardia and hypotension during dialysis, hemorrhoids-have caused anemia in past, hyperkalemia Last Myocardial Infarction Date:: 07/06/16 History of Any Multi-Drug Resistant Organisms: None Reported Past Surgical History: Coronary Bypass/CABG, Heart Catheterization, Heart Catheterization With Stent Additional Past Surgical History / Comment(s): 07/05/16 cardiac cath-tx medially, PCI/STENTS, 3 VESSEL CABG, AV fistula R upper arm, colonoscopy- normal, bilateral cataract removal with lens implants, bilateral eye laser sx to remove fluid. Past Anesthesia/Blood Transfusion Reactions: Previous Problems w/ Anesthesia Additional Past Anesthesia/Blood Transfusion Reaction / Comment(s): POST OP DELIRIUM/AGITATION/PSYCHOSIS-RESOLVED. Pt states she had a problem with hypotension last time she received versed. Date of Last Stent Placement:: 05/08/16 Past Psychological History: Depression Smoking Status: Never smoker Past Alcohol Use History: None Reported Past Drug Use History: None Reported - Past Family History Mother Family Medical History: Diabetes Mellitus, Myocardial Infarction ([place]), Thyroid Disorder Additional Family Medical History / Comment(s): CABG, gout, hypothyroid. Mother is 80yrs old. Sister(s) Family Medical History: Diabetes Mellitus, Thyroid Disorder Father Family Medical History: Diabetes Mellitus, Myocardial Infarction ([place]) Additional Family Medical History / Comment(s): Father at the age of 67yrs of a [place] General Exam - General Exam Comments Initial Comments: GENERAL: Patient is well-developed and well-nourished. Patient is nontoxic and well- hydrated and is in mild distress. ENT: Neck is soft and supple. No significant lymphadenopathy is noted. Oropharynx is clear. Moist mucous membranes. Neck has full range of motion without eliciting any pain. EYES: The sclera were anicteric and conjunctiva were pink and moist. Extraocular movements were intact and pupils were equal round and reactive to light. Eyelids were unremarkable. PULMONARY: Unlabored respirations. Good breath sounds bilaterally. No audible rales rhonchi or wheezing was noted. CARDIOVASCULAR: There is a regular rate and rhythm without any murmurs gallops or rubs. Patient 's heart rate was 83 when I was listening to her heart however when I first entered the room it appeared to be in the 40s. ABDOMEN: Soft and nontender with normal bowel sounds. No palpable organomegaly was noted. There is no palpable pulsatile mass. SKIN: Skin is clear with no lesions or rashes and otherwise unremarkable. NEUROLOGIC: Patient is alert and oriented x3. Cranial nerves II through XII are grossly intact. Motor and sensory are also intact. Normal speech, volume and content. Symmetrical smile. MUSCULOSKELETAL: Normal extremities with adequate strength and full range of motion. No lower extremity swelling or edema. No calf tenderness. LYMPHATICS: No significant lymphadenopathy is noted PSYCHIATRIC: Normal psychiatric evaluation. Normal interpersonal interactions appears functionally intact in deals appropriately with others. No signs of depression. No signs of anxiety. Limitations: no limitations Course Vital Signs 06/05/17 06/05/17 07:05 08:10 Temperature 97.1 F L Pulse Rate 84 85 Respiratory 16 16 Rate Blood Pressure 100/56 108/55 O2 Sat by Pulse 100 96 Oximetry Medical Decision Making - Medical Decision Making EKG shows normal sinus rhythm at 80 bpm OR interval is 174 QRS is 114 QT interval 410 QTC is 472. EKG shows no ST segment elevation or depression. Chest x-ray shows no acute abnormality. Patient did a potassium of 6.0 but the patient was given antibiotic for dialysis today so we did not treat it Dr. Campos was in agreement with this. Patient's heart rate on a number of occasions dipped into the 40s but not long enough to get an EKG. I spoke with Dr. Campos he agreed to admit the patient admitted the patient I wrote admitting orders and consult cardiology and I consult nephrology. - Lab Data Result diagrams: 06/05/17 07:45 06/05/17 07:45 Lab Results 06/05/17 06/05/17 06/05/17 Range/Units 07:45 07:45 07:45 WBC 14.8 H (3.8-10.6) k/uL RBC 3.27 L (3.80-5.40) m/uL Hgb 10.0 L (11.4-16.0) gm/dL Hct 32.1 L (34.0-46.0) % MCV 98.2 (80.0-100.0) fL MCH 30.5 (25.0-35.0) pg MCHC 31.1 (31.0-37.0) g/dL RDW 18.2 H (11.5-15.5) % Plt Count 238 (150-450) k/uL Neutrophils % 80 % Lymphocytes % 11 % Monocytes % 3 % Eosinophils % 4 % Basophils % 0 % Neutrophils # 11.9 H (1.3-7.7) k/uL Lymphocytes # 1.6 (1.0-4.8) k/uL Monocytes # 0.5 (0-1.0) k/uL Eosinophils # 0.6 (0-0.7) k/uL Basophils # 0.1 (0-0.2) k/uL Hypochromasia Slight Anisocytosis Slight Macrocytosis Slight Sodium 142 (137-145) mmol/L Potassium 6.0 H (3.5-5.1) mmol/L Chloride 99 (98-107) mmol/L Carbon Dioxide 16 L (22-30) mmol/L Anion Gap 27 mmol/L BUN 77 H (7-17) mg/dL Creatinine 9.34 H* (0.52-1.04) mg/dL Est GFR (MDRD) Af Amer 5 (>60 ml/min/1.73 sqM) Est GFR (MDRD) Non-Af 4 (>60 ml/min/1.73 sqM) Glucose 163 H (74-99) mg/dL Calcium 10.3 H (8.4-10.2) mg/dL Magnesium 1.6 (1.6-2.3) mg/dL Total Bilirubin 0.6 (0.2-1.3) mg/dL AST 21 (14-36) U/L ALT 28 (9-52) U/L Alkaline Phosphatase 127 H (38-126) U/L Total Creatine Kinase 93 (30-135) U/L CK-MB (CK-2) 2.0 (0.0-2.4) ng/mL CK-MB (CK-2) Rel Index 2.2 Total Protein 6.6 (6.3-8.2) g/dL Albumin 4.1 (3.5-5.0) g/dL Disposition Clinical Impression: Hyperkalemia, Chronic renal failure, Bradycardia Disposition: [facility]ITT[facility] Referrals: Kyle Campos MD [Primary Care Provider] - 1-2 days Time of Disposition: 09:35
[2017-06-05 08:39] LABS: Anisocytosis Slight; Basophils # (A) 0.1 k/uL (0-0.2); Basophils % (A) 0 %; Eosinophils # (A) 0.6 k/uL (0-0.7); Eosinophils % (A) 4 %; HCT 32.1 % (34.0-46.0); Hypochromasia Slight; Lymphocytes # (A) 1.6 k/uL (1.0-4.8); Lymphocytes % (A) 11 %; MCH 30.5 pg (25.0-35.0); MCHC 31.1 g/dL (31.0-37.0); MCV 98.2 fL (80.0-100.0); Macrocytosis Slight; Mean Platelet Volume 8.4; Monocytes # (A) 0.5 k/uL (0-1.0); Monocytes % (A) 3 %; Neutrophils # (A) 11.9 k/uL (1.3-7.7); Neutrophils % (A) 80 %; Platelet Count 238 k/uL (150-450); RBC 3.27 m/uL (3.80-5.40); RDW 18.2 % (11.5-15.5); WBC 14.8 k/uL (3.8-10.6)
[2017-06-05 08:48] LABS: Albumin 4.1 g/dL (3.5-5.0); Calcium 10.3 mg/dL (8.4-10.2); Magnesium 1.6 mg/dL (1.6-2.3); Total Bilirubin 0.6 mg/dL (0.2-1.3); Total Protein 6.6 g/dL (6.3-8.2)
--- NOTE | 2017-06-05 08:58 | XR ---
EXAMINATION TYPE: XR chest 2V DATE OF EXAM: 06/05/2017 COMPARISON: 05/31/2017 HISTORY: Shortness of breath TECHNIQUE: Frontal and lateral views of the chest are obtained. FINDINGS: Scattered senescent parenchymal changes noted. No evidence for infiltrate. No evidence for atelectasis. Cardiomegaly with pulmonary venous congestion. No evidence for overt failure. Mediastinal structures are stable and grossly unremarkable. No evidence for hilar prominence. Degenerative changes dorsal spine. IMPRESSION: 1. Cardiomegaly with pulmonary venous congestion. No evidence for overt failure.
[2017-06-05] MEDS ORDERED: SODIUM CHLORIDE 0.9% 1,000 ML IV ONE (09:35)
[2017-06-05 11:02] LABS: Appearance,Urine Turbid (Clear); Bacteria,Urine Rare /hpf; Bilirubin,Urine Negative (Negative); Blood,Urine Small (Negative); Color,Urine Yellow; Glucose,Urine (UA) Negative (Negative); Ketones,Urine Negative (Negative); Leukocyte Esterase,Urine Large (Negative); Nitrite,Urine Negative (Negative); Protein,Urine 1+ (Negative); RBC,Urine 53 /hpf (0-5); Specific Gravity,Urine 1.017 (1.001-1.035); Squamous Epithelial Cell,Urine 56 /hpf (0-4); Urobilinogen,Urine <2.0 mg/dL (<2.0); WBC,Urine >182 /hpf (0-5)
--- NOTE | 2017-06-05 13:21 | CONS ---
CONSULTATION Mrs. Mcqueen is a 62-year-old female with a known history of coronary artery disease, status post coronary artery bypass grafting and percutaneous revascularization who was just discharged from the hospital and re-admitted from the dialysis unit. In the dialysis unit, she felt dizzy. She had episode of bradycardia, although I do not have documentation of that. She has back and chest discomfort, which she had before. She has no palpitation. She fell earlier. She was in [place] in March of 2017 and underwent repeat cardiac catheterization with no significant progression of disease after reviewing the data. She denies any peripheral edema. No PND. No orthopnea. No nausea. She continues to be at home on aspirin once a day, Plavix 75 mg daily. She has not been taking her Coreg. She is on Lipitor 40 mg daily. In addition to that, she is on Sensipar, allopurinol, midodrine 10 mg twice a day, insulin, Neurontin, Singulair and Prilosec. REVIEW OF SYSTEMS: RESPIRATORY SYSTEM: She has chronic dyspnea on exertion and a cough. No wheezing. GI SYSTEM: No recent GI bleeding. No peptic ulcer disease. SYSTEM: She has end-stage renal disease, on hemodialysis. NERVOUS SYSTEM: No history of seizure. PHYSICAL EXAMINATION: She is a 62-year-old female, alert, in no apparent distress. Blood pressure running in the 90s to the low 100. There is no documentation of bradycardia in the emergency room. HEAD: Normocephalic. EYES: Sclerae anicteric. NECK: Good upstroke. No bruit. LUNGS: Clear to auscultation. HEART: Regular rate and rhythm. S1, S2. No S3 with systolic murmur. No diastolic murmur. No rub. ABDOMEN: Soft, nontender. EXTREMITIES: No edema. LAB DATA: Lab data revealed a BUN and creatinine 77 and 9.34, potassium is 6.0. Her hemoglobin is 10. Her EKG shows sinus mechanism with no significant bradycardia. Her chest x-ray shows mild congestion. IMPRESSION: 1. Episode of bradycardia, although I do not have documentation of that. 2. History of coronary artery disease, status post coronary artery bypass grafting and PCI, appears to be stable. She underwent repeat cardiac catheterization most recently in March 2017. 3. Episode of hypotension. 4. End-stage renal disease. 5. Hyperlipidemia. 6. Diabetes mellitus. RECOMMENDATION: From the cardiac standpoint, the patient is not on any medication to cause bradycardia. She has not been taking her Coreg because of her low blood pressure, but I will stop it completely. Otherwise, I will resume the rest of her medical regimen. Will observe her on the telemetry and depending on her progress, further recommendation will be made. Thank you for this consult. We will follow with you. ALEJANDRO / TIMA: [id number] /
[2017-06-05 13:22] LABS: Glucose,Whole Blood 113 mg/dL (75-99)
--- NOTE | 2017-06-05 13:28 | P.NPCON ---
History of Present Illness - Reason for Consult end stage renal disease - History of Present Illness Reason for consultation: End-stage renal disease History of present illness: Patient is a 62-year-old female seen in renal consultation for end-stage renal disease. She is maintained on hemodialysis on a Sunday schedule via right upper extremity AV graft. Patient did miss yesterday's dialysis treatment and went this morning instead. She was noted to be bradycardic with heart rate in the 40s and also hypotensive with systolic blood pressure in the 80s and was subsequently sent to the hospital. Patient states she's been feeling quite dizzy especially when ambulating. She denies any falls or syncopal episodes. She does have coronary artery disease with interventions in the past and states she has chronic chest pain. She also gets dyspneic intermittently. No vomiting or diarrhea. Oral intake is fair. Denies any edema in the legs but states she feels like she has fluids and her lungs. Her chest x-ray was suggestive of mild vascular congestion. She does minted taking Coreg at home but states she only takes it if her systolic blood pressures greater than 110. She does follow with cardiology as an outpatient as well. Vital signs are stable. General: The patient appeared well nourished and normally developed. HEENT: Head exam is unremarkable. Neck is without jugular venous distension. LUNGS: Lungs are clear to auscultation and percussion. Breath sounds decreased. HEART: Rate and Rhythm are regular. First and second heart sounds normal. No murmurs, rubs or gallops. ABDOMEN: Abdominal exam reveals normal bowel sounds. Non-tender and non- distended. No evidence of peritonitis. EXTREMITITES: No clubbing, cyanosis, or edema. Past Medical History Past Medical History: Coronary Artery Disease (CAD), Chest Pain / Angina, Diabetes Mellitus, Hyperlipidemia, Hypertension, Myocardial Infarction ([place]), Renal Disease, Thyroid Disorder Additional Past Medical History / Comment(s): MIs, IDDM type II, GOUT R foot, diabetic neuropathy bilateral feet and now "all over", chronic ANEMIA, MITRAL and TRICUSID REGURGITATION, esrd gets hemodialysis [id number]., UTIs, bronchitis, hypoparathyroid, wears O2 at 2L/NC during dialysis only-has had bradycardia and hypotension during dialysis, hemorrhoids-have caused anemia in past, hyperkalemia Last Myocardial Infarction Date:: 04/01/17 History of Any Multi-Drug Resistant Organisms: None Reported Past Surgical History: Coronary Bypass/CABG, Heart Catheterization, Heart Catheterization With Stent Additional Past Surgical History / Comment(s): Cardiac caths-tx medially/pt recently had cardiac cath while in [place] 04/2017, PCI/STENTS, 2015-3 VESSEL CABG, AV fistula R upper arm, colonoscopy-normal, bilateral cataract removal with lens implants, bilateral eye laser sx to remove fluid. Past Anesthesia/Blood Transfusion Reactions: Previous Problems w/ Anesthesia Additional Past Anesthesia/Blood Transfusion Reaction / Comment(s): POST OP DILERIUM/AGITATION/PSYCHOSIS-RESOLVED. Pt states she had a problem with hypotension last time she received versed. Date of Last Stent Placement:: 04/03/17 Smoking Status: Never smoker - Past Family History Mother Family Medical History: Diabetes Mellitus, Myocardial Infarction ([place]), Thyroid Disorder Additional Family Medical History / Comment(s): CABG, gout, hypothyroid. Mother is 80yrs old. Sister(s) Family Medical History: Diabetes Mellitus, Thyroid Disorder Father Family Medical History: Diabetes Mellitus, Myocardial Infarction ([place]) Additional Family Medical History / Comment(s): Father at the age of 67yrs of a [place] Medications and Allergies Home Medications Medication Instructions Recorded Confirmed Type Allopurinol [Zyloprim] 100 mg PO DAILY 11/15/14 06/05/17 History Gabapentin [Neurontin] 100 mg PO BID 11/15/14 06/05/17 History Omeprazole [PriLOSEC] 20 mg PO BID 01/31/15 06/05/17 History Insulin Glargine [Lantus] 35 unit SQ HS 03/03/15 06/05/17 History Loperamide [Imodium] 2 mg PO QID PRN 03/03/15 06/05/17 History Mv-Min/Vit C/Glu/Karla HCl/Hc124 1 tab PO QID PRN 03/03/15 06/05/17 History [Airborne Tablet Chewable] Sertraline [Zoloft] 50 mg PO HS 03/03/15 06/05/17 History Cinacalcet HCl [Sensipar] 30 mg PO HS 05/06/16 06/05/17 History Insulin Aspart [NovoLOG See Protocol SQ AC-TID 05/06/16 06/05/17 History (formulary)] Montelukast [Singulair] 10 mg PO HS #30 tab 06/30/16 06/05/17 Rx Atorvastatin [Lipitor] 40 mg PO HS 03/19/17 06/05/17 History Carvedilol [Coreg] 3.125 mg PO BID PRN 03/19/17 06/05/17 History Aspirin [Adult Low Dose Aspirin EC] 81 mg PO DAILY #30 tablet. 04/05/17 Rx Clopidogrel [Plavix] 75 mg PO HS #30 tab 04/05/17 06/05/17 Rx Midodrine HCl [ProAmatine] 10 mg PO BID 05/28/17 06/05/17 History Nitroglycerin Sl Tabs [Nitrostat] 0.4 mg SUBLINGUAL Q5M PRN #25 tab 05/31/17 Rx Allergies Allergy/AdvReac Type Severity Reaction Status Date / Time adhesive Allergy Rash/Hives Verified 06/05/17 07:47 cephalexin monohydrate Allergy Rash/Hives Verified 06/05/17 07:47 [From Keflex] hydromorphone HCl Allergy Hallucinati Verified 06/05/17 07:47 [From Dilaudid] ons iodine Allergy Rash/Hives Verified 06/05/17 07:47 Penicillins Allergy Unknown Verified 06/05/17 07:47 Childhood povidone-iodine Allergy Unknown Verified 06/05/17 07:47 [From Betadine] shellfish derived [Shrimp] Allergy Rash/Hives Verified 06/05/17 07:47 soap [From Betadine] Allergy Unknown Verified 06/05/17 07:47 codeine AdvReac Confusion Verified 06/05/17 07:47 fentanyl AdvReac Unknown Verified 06/05/17 07:47 hydrocodone bitartrate AdvReac Itching Verified 06/05/17 07:47 [From Vicodin] midazolam [From Versed] AdvReac Unknown Verified 06/05/17 07:47 morphine AdvReac Hallucinati Verified 06/05/17 07:47 ons tramadol AdvReac Itching Verified 06/05/17 07:47 artifical sweetener AdvReac Unknown Uncoded 06/05/17 07:09 Physical Exam Vitals: Vital Signs Temp Pulse Pulse Resp BP BP Pulse Ox 06/05/17 12:50 97 F L 80 16 105/65 100 06/05/17 11:35 97.0 F L 89 16 97/53 97 06/05/17 10:00 79 16 97/58 96 06/05/17 09:00 85 16 109/52 96 06/05/17 08:10 85 16 108/55 96 06/05/17 07:05 97.1 F L 84 16 100/56 100 Intake and Output 06/04/17 06/05/17 06/05/17 22:59 06:59 14:59 Other: Weight 83.1 kg Patient Weight 06/06/17 06:59 Weight 83.1 kg Results - Lab Results Most recent lab results Calcium 10.3 mg/dL (8.4-10.2) H 06/05/17 07:45 Magnesium 1.6 mg/dL (1.6-2.3) 06/05/17 07:45 06/05/17 07:45 06/05/17 07:45 Assessment and Plan Plan: Assessment: #1. End-stage renal disease maintained on hemodialysis on a Sunday schedule via right upper extremity AV graft. #2. Mild volume overload. #3. Hyperkalemia secondary to missed dialysis treatment yesterday. #4. Coronary artery disease status post multiple interventions. She does have chronic blockages. #5. 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 #6. Insulin-dependent diabetes mellitus. #7. Chronic hypotension maintained on midodrine twice daily. #8. Metabolic acidosis secondary to chronic kidney disease and missed dialysis. #9. Bradycardia. This has been an ongoing issue with the patient. Cardiology following. Plan: Hep-Lock IV fluids. Hemodialysis today with goal 2 liters ultrafiltration. Another treatment tomorrow per her outpatient schedule. Check phosphorus level. Resume Sensipar. Resume midodrine. Await cardiology recommendations. Expect improvement in acidosis post dialysis. Thank you for the consultation. I will continue to follow the patient with you during her hospital stay.
[2017-06-05] MEDS ORDERED: LOPERAMIDE 2 MG CAP PO PRN (14:28)
[2017-06-05] MEDS ORDERED: NITROGLYCERIN SL TABS 0.4 MG TAB SUBLINGUAL PRN (14:28)
[2017-06-05] MEDS ORDERED: [UNRECOGNIZED DRUG - OTHER] PO PRN (14:28)
--- NOTE | 2017-06-05 14:50 | P.HPIM ---
History of Present Illness H&P Date: 06/05/17 Chief Complaint: Bradycardia and hypotension at dialysis Center This is a 62-year-old female with a known past medical history of end-stage renal disease on hemodialysis Sunday, diabetes mellitus, myocardial infarction, coronary artery disease with previous coronary bypass grafting and cardiac stent. Patient came into the emergency room with complaints of bradycardia and hypotension at the dialysis center. Patient reports that she has not been feeling well. She went to see Dr. Campos in the office yesterday and was started on Levaquin for an acute bronchitis. Patient took 1 dose of Levaquin yesterday. she did miss her dialysis treatment yesterday for not feeling well. She therefore rescheduled her dialysis for this morning. When she went to the dialysis Center her vitals show that she is bradycardiac with a heart rate in the 40s and hypotensive with a systolic blood pressure in the 80s. She also was dizzy. She was told to go to the emergency room. She will receive dialysis today. Both nephrology and cardiology are following. Coreg was discontinued. Patient reports that she only takes Coreg if her systolic blood pressures greater than 110. Therefore, she has not been taking the Coreg will for the last few days. Patient was just discharged from the hospital on Sunday for congestive heart failure and right lower extremity cellulitis. At that time she was discharged with no antibiotics. Levaquin will be started for her bronchitis. Patient reports a harsh cough with productive sputum. Chest x-ray shows cardiomegaly with pulmonary venous congestion. No evidence of overt failure. She's been afebrile. White count 14.8. EKG shows a normal sinus rhythm with a heart rate in the 80s. Patient on telemetry. No evidence of bradycardia. Patient denies any chest pain, shortness of breath, nausea or vomiting. Denies any loose stools. Denies any burning with urination. Urinalysis is likely a contaminant. Patient does not make much urine since she is on dialysis. Patient reports that difficulty getting the specimen. Review of Systems Please refer to HPI otherwise unremarkable Past Medical History Past Medical History: Coronary Artery Disease (CAD), Chest Pain / Angina, Diabetes Mellitus, Hyperlipidemia, Hypertension, Myocardial Infarction (NV), Renal Disease, Thyroid Disorder Additional Past Medical History / Comment(s): MIs, IDDM type II, GOUT R foot, diabetic neuropathy bilateral feet and now "all over", chronic ANEMIA, MITRAL and TRICUSID REGURGITATION, esrd gets hemodialysis [id number]., UTIs, bronchitis, hypoparathyroid, wears O2 at 2L/NC during dialysis only-has had bradycardia and hypotension during dialysis, hemorrhoids-have caused anemia in past, hyperkalemia Last Myocardial Infarction Date:: 04/01/17 History of Any Multi-Drug Resistant Organisms: None Reported Past Surgical History: Coronary Bypass/CABG, Heart Catheterization, Heart Catheterization With Stent Additional Past Surgical History / Comment(s): Cardiac caths-tx medially/pt recently had cardiac cath while in [place] 04/2017, PCI/STENTS, 2014-3 VESSEL CABG, AV fistula R upper arm, colonoscopy-normal, bilateral cataract removal with lens implants, bilateral eye laser sx to remove fluid. Past Anesthesia/Blood Transfusion Reactions: Previous Problems w/ Anesthesia Additional Past Anesthesia/Blood Transfusion Reaction / Comment(s): POST OP DILERIUM/AGITATION/PSYCHOSIS-RESOLVED. Pt states she had a problem with hypotension last time she received versed. Date of Last Stent Placement:: 04/03/17 Smoking Status: Never smoker - Past Family History Mother Family Medical History: Diabetes Mellitus, Myocardial Infarction (NV), Thyroid Disorder Additional Family Medical History / Comment(s): CABG, gout, hypothyroid. Mother is 80yrs old. Sister(s) Family Medical History: Diabetes Mellitus, Thyroid Disorder Father Family Medical History: Diabetes Mellitus, Myocardial Infarction (NV) Additional Family Medical History / Comment(s): Father at the age of 67yrs of a NV Medications and Allergies Home Medications Medication Instructions Recorded Confirmed Type Allopurinol [Zyloprim] 100 mg PO DAILY 11/15/14 06/05/17 History Gabapentin [Neurontin] 100 mg PO BID 11/15/14 06/05/17 History Omeprazole [PriLOSEC] 20 mg PO BID 01/31/15 06/05/17 History Insulin Glargine [Lantus] 35 unit SQ HS 03/03/15 06/05/17 History Loperamide [Imodium] 2 mg PO QID PRN 03/03/15 06/05/17 History Mv-Min/Vit C/Glu/Karla HCl/Hc124 1 tab PO QID PRN 03/03/15 06/05/17 History [Airborne Tablet Chewable] Sertraline [Zoloft] 50 mg PO HS 03/03/15 06/05/17 History Cinacalcet HCl [Sensipar] 30 mg PO HS 05/06/16 06/05/17 History Insulin Aspart [NovoLOG See Protocol SQ AC-TID 05/06/16 06/05/17 History (formulary)] Montelukast [Singulair] 10 mg PO HS #30 tab 06/30/16 06/05/17 Rx Atorvastatin [Lipitor] 40 mg PO HS 03/19/17 06/05/17 History Carvedilol [Coreg] 3.125 mg PO BID PRN 03/19/17 06/05/17 History Aspirin [Adult Low Dose Aspirin EC] 81 mg PO DAILY #30 tablet. 04/05/17 Rx Clopidogrel [Plavix] 75 mg PO HS #30 tab 04/05/17 06/05/17 Rx Midodrine HCl [ProAmatine] 10 mg PO BID 05/28/17 06/05/17 History Nitroglycerin Sl Tabs [Nitrostat] 0.4 mg SUBLINGUAL Q5M PRN #25 tab 05/31/17 Rx Allergies Allergy/AdvReac Type Severity Reaction Status Date / Time adhesive Allergy Rash/Hives Verified 06/05/17 07:47 cephalexin monohydrate Allergy Rash/Hives Verified 06/05/17 07:47 [From Keflex] hydromorphone HCl Allergy Hallucinati Verified 06/05/17 07:47 [From Dilaudid] ons iodine Allergy Rash/Hives Verified 06/05/17 07:47 Penicillins Allergy Unknown Verified 06/05/17 07:47 Childhood povidone-iodine Allergy Unknown Verified 06/05/17 07:47 [From Betadine] shellfish derived [Shrimp] Allergy Rash/Hives Verified 06/05/17 07:47 soap [From Betadine] Allergy Unknown Verified 06/05/17 07:47 codeine AdvReac Confusion Verified 06/05/17 07:47 fentanyl AdvReac Unknown Verified 06/05/17 07:47 hydrocodone bitartrate AdvReac Itching Verified 06/05/17 07:47 [From Vicodin] midazolam [From Versed] AdvReac Unknown Verified 06/05/17 07:47 morphine AdvReac Hallucinati Verified 06/05/17 07:47 ons tramadol AdvReac Itching Verified 06/05/17 07:47 artifical sweetener AdvReac Unknown Uncoded 06/05/17 07:09 Physical Exam Vitals: Vital Signs Temp Pulse Pulse Resp BP BP Pulse Ox 06/05/17 12:50 97 F L 80 16 105/65 100 06/05/17 11:35 97.0 F L 89 16 97/53 97 06/05/17 10:00 79 16 97/58 96 06/05/17 09:00 85 16 109/52 96 06/05/17 08:10 85 16 108/55 96 06/05/17 07:05 97.1 F L 84 16 100/56 100 Intake and Output 06/04/17 06/05/17 06/05/17 22:59 06:59 14:59 Other: Weight 83.1 kg Patient Weight 06/06/17 06:59 Weight 83.1 kg Head normocephalic Neck supple Lungs clear to auscultation bilaterally no wheezing or crackles Heart regular rate and rhythm S1-S2, no rub or gallop Abdomen is soft nontender nondistended positive bowel sounds no hepatosplenomegaly Extremities no edema Neuro alert and orientated to 3 Results CBC & Chem 7: 06/05/17 07:45 06/05/17 07:45 Labs: Abnormal Lab Results - Last 24 Hours (Table) 06/05/17 06/05/17 06/05/17 Range/Units 07:45 07:45 10:45 WBC 14.8 H (3.8-10.6) k/uL RBC 3.27 L (3.80-5.40) m/uL Hgb 10.0 L (11.4-16.0) gm/dL Hct 32.1 L (34.0-46.0) % RDW 18.2 H (11.5-15.5) % Neutrophils # 11.9 H (1.3-7.7) k/uL Potassium 6.0 H (3.5-5.1) mmol/L Carbon Dioxide 16 L (22-30) mmol/L BUN 77 H (7-17) mg/dL Creatinine 9.34 H* (0.52-1.04) mg/dL Glucose 163 H (74-99) mg/dL POC Glucose (mg/dL) (75-99) mg/dL Calcium 10.3 H (8.4-10.2) mg/dL Alkaline Phosphatase 127 H (38-126) U/L Urine Appearance Turbid H (Clear) Urine Protein 1+ H (Negative) Urine Blood Small H (Negative) Ur Leukocyte Esterase Large H (Negative) Urine RBC 53 H (0-5) /hpf Urine WBC >182 H (0-5) /hpf Ur Squamous Epith Cells 56 H (0-4) /hpf Urine Bacteria Rare H (None) /hpf 06/05/17 Range/Units 13:17 WBC (3.8-10.6) k/uL RBC (3.80-5.40) m/uL Hgb (11.4-16.0) gm/dL Hct (34.0-46.0) % RDW (11.5-15.5) % Neutrophils # (1.3-7.7) k/uL Potassium (3.5-5.1) mmol/L Carbon Dioxide (22-30) mmol/L BUN (7-17) mg/dL Creatinine (0.52-1.04) mg/dL Glucose (74-99) mg/dL POC Glucose (mg/dL) 113 H (75-99) mg/dL Calcium (8.4-10.2) mg/dL Alkaline Phosphatase (38-126) U/L Urine Appearance (Clear) Urine Protein (Negative) Urine Blood (Negative) Ur Leukocyte Esterase (Negative) Urine RBC (0-5) /hpf Urine WBC (0-5) /hpf Ur Squamous Epith Cells (0-4) /hpf Urine Bacteria (None) /hpf Thrombosis Risk Factor Assmnt - Choose All That Apply Any of the Below Risk Factors Present?: Yes Each Factor Represents 1 point: Obesity (BMI >25) Other Risk Factors: Yes Each Risk Factor Represents 2 Points: Age 61-74 years Other congenital or acquired thrombophilia - If yes, enter type in comment: No Thrombosis Risk Factor Assessment Total Risk Factor Score: 3 Thrombosis Risk Factor Assessment Level: Moderate Risk Assessment and Plan Assessment: 1. Bradycardia and hypotension: This is a recurrent issue for this patient. Cardiology and nephrology has been consulted. The Coreg was discontinued by cardiology. Midodrine reordered by nephrology 2. Acute tracheobronchitis will resume her Levaquin 250 mg by mouth daily. Try to collect a sputum culture. Chest x-ray shows no evidence of pneumonia 3. End-stage renal disease on hemodialysis Sunday 4. Hyperkalemia secondary to missing dialysis treatment: Should be corrected with dialysis today 5. Metabolic acidosis secondary to chronic kidney disease and missing dialysis. 6. Insulin-dependent diabetes mellitus. Resume home Lantus and start sliding scale coverage. A1c last admission 6.4 7. Leukocytosis white count 14.8 possibly related to bronchitis. Levaquin started. Repeat labs in a.m. Urinalysis is likely contaminate. Showing a large amount of squamous epithelial cells 8. History of myocardial infarction and coronary artery disease with previous CABG and cardiac stent 9. Anemia of chronic kidney disease and iron deficiency anemia. Resume patient 's iron supplement GI prophylaxis Pepcid and DVT prophylaxis subcu heparin Time with Patient: Greater than 30 (Greater than 50% of the total time spent in counseling and coordination of care. I performed an examination of the patient and discussed their management with the physician Health Editor. I have reviewed the Physician Health Editor's notes and agree with the documented findings and plan of care)
[2017-06-05] MEDS ORDERED: Magnesium Replacement Protocol 1 EACH MISC MISCELLANE PRN (15:46)
[2017-06-05] MEDS: ACETAMINOPHEN TAB 325 MG TAB PO PRN ×2 (16:20→23:08)
[2017-06-05] MEDS: MIDODRINE 5 MG TAB PO SCH (16:20)
[2017-06-05 16:42] LABS: Glucose,Whole Blood 170 mg/dL (75-99)
[2017-06-05] MEDS: INSULIN ASPART 100 UNIT/ML 1 ML 10 ML VIAL SQ SCH ×2 (18:55→20:53)
[2017-06-05] MEDS ORDERED: NON-FORMULARY DRUG (Midodrine Hcl [Proamatine] 10 MG) PO SCH (21:00)
[2017-06-05] MEDS: LEVOFLOXACIN 250 MG TAB PO SCH (21:07)
[2017-06-05] MEDS: FERROUS SULFATE 325 MG TAB PO SCH (21:08)
[2017-06-05] MEDS: SERTRALINE 50 MG TAB PO SCH (21:08)
[2017-06-05] MEDS: MONTELUKAST 10 MG TAB PO SCH (21:08)
[2017-06-05] MEDS: GABAPENTIN 100 MG CAP PO SCH (21:08)
[2017-06-05] MEDS: HEPARIN SODIUM,PORCINE 5,000 UNIT/ML 1 ML VIAL SQ SCH (21:09)
[2017-06-05] MEDS: INSULIN DETEMIR 100 UNIT/ML 10 ML VIAL SQ SCH (21:09)
[2017-06-05] MEDS: CLOPIDOGREL 75 MG TAB PO SCH (21:12)
[2017-06-05] MEDS: ATORVASTATIN 40 MG TAB PO SCH (21:12)
[2017-06-05 21:18] LABS: Anisocytosis Slight; Basophils # (A) 0.1 k/uL (0-0.2); Basophils % (A) 1 %; Eosinophils # (A) 0.7 k/uL (0-0.7); Eosinophils % (A) 7 %; HCT 33.8 % (34.0-46.0); HGB 10.2 gm/dL (11.4-16.0); Hypochromasia Moderate; Lymphocytes # (A) 1.3 k/uL (1.0-4.8); Lymphocytes % (A) 13 %; MCH 30.3 pg (25.0-35.0); MCHC 30.2 g/dL (31.0-37.0); MCV 100.4 fL (80.0-100.0); Macrocytosis Moderate; Monocytes # (A) 0.3 k/uL (0-1.0); Monocytes % (A) 3 %; Neutrophils # (A) 7.9 k/uL (1.3-7.7); Neutrophils % (A) 76 %; Platelet Count 203 k/uL (150-450); RBC 3.36 m/uL (3.80-5.40); RDW 18.5 % (11.5-15.5); WBC 10.4 k/uL (3.8-10.6)
[2017-06-05 21:31] LABS: Calcium 9.9 mg/dL (8.4-10.2); Potassium 3.9 mmol/L (3.5-5.1)
[2017-06-05] MEDS: MAGNESIUM SULFATE-D5W PMX 1 GM in DEXTROSE/WATER 1 100ML.BAG IVPB SCH ×2 (22:00→23:04)
[2017-06-05 22:01] LABS: Glucose,Whole Blood 73 mg/dL (75-99)
[2017-06-06 06:14] LABS: Anisocytosis Slight; Basophils # (A) 0.1 k/uL (0-0.2); Basophils % (A) 0 %; Eosinophils # (A) 0.8 k/uL (0-0.7); Eosinophils % (A) 7 %; HCT 31.4 % (34.0-46.0); Lymphocytes # (A) 1.6 k/uL (1.0-4.8); Lymphocytes % (A) 14 %; MCH 30.6 pg (25.0-35.0); MCHC 31.7 g/dL (31.0-37.0); MCV 96.6 fL (80.0-100.0); Macrocytosis Slight; Mean Platelet Volume 7.7; Monocytes # (A) 0.5 k/uL (0-1.0); Monocytes % (A) 4 %; Neutrophils # (A) 8.5 k/uL (1.3-7.7); Neutrophils % (A) 74 %; Platelet Count 200 k/uL (150-450); RBC 3.25 m/uL (3.80-5.40); RDW 17.1 % (11.5-15.5); WBC 11.5 k/uL (3.8-10.6)
[2017-06-06 06:30] LABS: Glucose,Whole Blood 77 mg/dL (75-99)
[2017-06-06] MEDS: INSULIN ASPART 100 UNIT/ML 1 ML 10 ML VIAL SQ SCH ×4 (06:34→21:33)
[2017-06-06] MEDS: MIDODRINE 5 MG TAB PO SCH ×3 (06:35→18:04)
[2017-06-06 09:08] LABS: Appearance,Urine Turbid (Clear); Bacteria,Urine Rare /hpf; Bilirubin,Urine 1+ (Negative); Blood,Urine Small (Negative); Color,Urine Yellow; Glucose,Urine (UA) Negative (Negative); Ketones,Urine Negative (Negative); Leukocyte Esterase,Urine Large (Negative); Nitrite,Urine Negative (Negative); PH, Urine 5.5 (5.0-8.0); Protein,Urine 1+ (Negative); RBC,Urine 16 /hpf (0-5); Specific Gravity,Urine 1.016 (1.001-1.035); Squamous Epithelial Cell,Urine 51 /hpf (0-4); Urobilinogen,Urine <2.0 mg/dL (<2.0); WBC,Urine 170 /hpf (0-5)
[2017-06-06] MEDS: ALLOPURINOL 100 MG TAB PO SCH (09:36)
[2017-06-06] MEDS: ASPIRIN 81 MG PO SCH (09:36)
[2017-06-06] MEDS: CINACALCET 30 MG TAB PO SCH (09:36)
[2017-06-06] MEDS: FAMOTIDINE 20 MG TAB PO SCH (09:36)
[2017-06-06] MEDS: GABAPENTIN 100 MG CAP PO SCH ×2 (09:37→20:50)
[2017-06-06] MEDS: HEPARIN SODIUM,PORCINE 5,000 UNIT/ML 1 ML VIAL SQ SCH ×2 (09:39→20:50)
[2017-06-06 09:56] VITALS: BMI 29.7
[2017-06-06 10:31] LABS: Albumin 4.1 g/dL (3.5-5.0); Magnesium 2.4 mg/dL (1.6-2.3); Phosphorus 5.3 mg/dL (2.5-4.5); Potassium 4.6 mmol/L (3.5-5.1); Total Bilirubin 0.5 mg/dL (0.2-1.3); Total Protein 6.6 g/dL (6.3-8.2)
--- NOTE | 2017-06-06 10:36 | P.PN ---
Subjective Progress Note Date: 06/06/17 This is a 62-year-old female with a known past medical history of end-stage renal disease on hemodialysis Sunday, diabetes mellitus, myocardial infarction, coronary artery disease with previous coronary bypass grafting and cardiac stent. Patient came into the emergency room with complaints of bradycardia and hypotension at the dialysis center. Patient reports that she has not been feeling well. She went to see Dr. Campos in the office yesterday and was started on Levaquin for an acute bronchitis. Patient took 1 dose of Levaquin yesterday. she did miss her dialysis treatment yesterday for not feeling well. She therefore rescheduled her dialysis for this morning. When she went to the dialysis Center her vitals show that she is bradycardiac with a heart rate in the 40s and hypotensive with a systolic blood pressure in the 80s. She also was dizzy. She was told to go to the emergency room. She will receive dialysis today. Both nephrology and cardiology are following. Coreg was discontinued. on 06/06/2017 Patient is alert and oriented 3 she is complaining of cough complaining of shortness of breath otherwise no complaints at this time potassium has been corrected sputum sample collected awaiting culture and Gram stain results Objective - Vital Signs Vital signs: Vital Signs Temp 97.0 F L 06/06/17 07:58 Pulse 82 06/06/17 09:00 Resp 13 06/06/17 09:00 BP 101/43 06/06/17 07:58 Pulse Ox 100 06/06/17 07:58 Intake & Output 06/05/17 06/06/17 06/06/17 18:59 06:59 18:59 Intake Total 160 100 Output Total 1500 Balance -1340 100 Weight 83.1 kg 81 kg 81 kg Intake: Intake, IV Titration 160 Amount Sodium Chloride 0.9% 1, 160 000 ml @ 100 mls/hr IV . Q10H ONE Rx#:[id number] Oral 100 Output: Other 1500 Other: Voiding Method Toilet # Voids 1 - Exam General patient is alert and oriented 3 in no apparent distress HEENT head normocephalic and atraumatic Neck is supple no JVD no goiter no lymphadenopathy Chest exam reveals a scattered crackles bilaterally no wheezing Cardiac exam reveals regular heart sounds no murmurs Abdomen is soft nontender no organomegaly Extremity exam reveals no edema no cyanosis or - Labs CBC & Chem 7: 06/06/17 05:38 06/05/17 20:54 Labs: Abnormal Lab Results - Last 24 Hours (Table) 06/05/17 06/05/17 06/05/17 Range/Units 08:20 10:45 13:17 WBC (3.8-10.6) k/uL RBC (3.80-5.40) m/uL Hgb (11.4-16.0) gm/dL Hct (34.0-46.0) % MCV (80.0-100.0) fL MCHC (31.0-37.0) g/dL RDW (11.5-15.5) % Neutrophils # (1.3-7.7) k/uL Eosinophils # (0-0.7) k/uL BUN (7-17) mg/dL Creatinine (0.52-1.04) mg/dL Glucose (74-99) mg/dL POC Glucose (mg/dL) 113 H (75-99) mg/dL Urine Appearance Turbid H Turbid H (Clear) Urine Protein 1+ H 1+ H (Negative) Urine Blood Small H Small H (Negative) Urine Bilirubin 1+ H (Negative) Ur Leukocyte Esterase Large H Large H (Negative) Urine RBC 16 H 53 H (0-5) /hpf Urine WBC 170 H >182 H (0-5) /hpf Urine WBC Clumps Occasional H (None) /hpf Ur Squamous Epith Cells 51 H 56 H (0-4) /hpf Urine Bacteria Rare H Rare H (None) /hpf 06/05/17 06/05/17 06/05/17 Range/Units 16:40 20:53 20:54 WBC (3.8-10.6) k/uL RBC 3.36 L (3.80-5.40) m/uL Hgb 10.2 L (11.4-16.0) gm/dL Hct 33.8 L (34.0-46.0) % MCV 100.4 H (80.0-100.0) fL MCHC 30.2 L (31.0-37.0) g/dL RDW 18.5 H (11.5-15.5) % Neutrophils # 7.9 H (1.3-7.7) k/uL Eosinophils # (0-0.7) k/uL BUN (7-17) mg/dL Creatinine (0.52-1.04) mg/dL Glucose (74-99) mg/dL POC Glucose (mg/dL) 170 H 73 L (75-99) mg/dL Urine Appearance (Clear) Urine Protein (Negative) Urine Blood (Negative) Urine Bilirubin (Negative) Ur Leukocyte Esterase (Negative) Urine RBC (0-5) /hpf Urine WBC (0-5) /hpf Urine WBC Clumps (None) /hpf Ur Squamous Epith Cells (0-4) /hpf Urine Bacteria (None) /hpf 06/05/17 06/06/17 Range/Units 20:54 05:38 WBC 11.5 H (3.8-10.6) k/uL RBC 3.25 L (3.80-5.40) m/uL Hgb 10.0 L (11.4-16.0) gm/dL Hct 31.4 L (34.0-46.0) % MCV (80.0-100.0) fL MCHC (31.0-37.0) g/dL RDW 17.1 H (11.5-15.5) % Neutrophils # 8.5 H (1.3-7.7) k/uL Eosinophils # 0.8 H (0-0.7) k/uL BUN 34 H (7-17) mg/dL Creatinine 4.25 H (0.52-1.04) mg/dL Glucose 71 L (74-99) mg/dL POC Glucose (mg/dL) (75-99) mg/dL Urine Appearance (Clear) Urine Protein (Negative) Urine Blood (Negative) Urine Bilirubin (Negative) Ur Leukocyte Esterase (Negative) Urine RBC (0-5) /hpf Urine WBC (0-5) /hpf Urine WBC Clumps (None) /hpf Ur Squamous Epith Cells (0-4) /hpf Urine Bacteria (None) /hpf Assessment and Plan Plan: 1. Bradycardia and hypotension: This is a recurrent issue for this patient. Cardiology and nephrology has been consulted. The Coreg was discontinued by cardiology. Midodrine reordered by nephrology 2. Acute tracheobronchitis will resume her Levaquin 250 mg by mouth daily. Await results on sputum culture. Chest x-ray shows no evidence of pneumonia 3. End-stage renal disease on hemodialysis Sunday 4. Hyperkalemia secondary to missing dialysis treatment, improved with dialysis. 5. Metabolic acidosis secondary to chronic kidney disease and missing dialysis. 6. Insulin-dependent diabetes mellitus. Resume home Lantus and start sliding scale coverage. A1c last admission 6.4 7. Leukocytosis white count 14.8 possibly related to bronchitis. Levaquin started. Repeat labs in a.m. Urinalysis is likely contaminate. Showing a large amount of squamous epithelial cells 8. History of myocardial infarction and coronary artery disease with previous CABG and cardiac stent 9. Anemia of chronic kidney disease and iron deficiency anemia. Resume patient 's iron supplement GI prophylaxis Pepcid and DVT prophylaxis subcu heparin.
[2017-06-06] MEDS: FERROUS SULFATE 325 MG TAB PO SCH ×2 (10:55→20:50)
--- NOTE | 2017-06-06 11:14 | P.PN ---
Subjective Patient is seen in follow-up for end-stage renal disease. She is maintained on hemodialysis on a Sunday schedule. She presented with bradycardia and dizziness. In the hospital her heart rate has been stable and has been 80-82 today. Her most recent blood pressure reading was 101/43. She does have chronic chest pain. Oral intake is fair. No vomiting or diarrhea. Vital signs are stable. General: The patient appeared well nourished and normally developed. HEENT: Head exam is unremarkable. Neck is without jugular venous distension. LUNGS: Lungs are clear to auscultation and percussion. Breath sounds decreased. HEART: Rate and Rhythm are regular. First and second heart sounds normal. No murmurs, rubs or gallops. ABDOMEN: Abdominal exam reveals normal bowel sounds. Non-tender and non- distended. No evidence of peritonitis. EXTREMITITES: No clubbing, cyanosis, or edema. Objective - Vital Signs Vital signs: Vital Signs Temp 97.0 F L 06/06/17 07:58 Pulse 82 06/06/17 09:00 Resp 13 06/06/17 09:00 BP 101/43 06/06/17 07:58 Pulse Ox 100 06/06/17 07:58 Intake & Output 06/05/17 06/06/17 06/06/17 18:59 06:59 18:59 Intake Total 160 100 Output Total 1500 Balance -1340 100 Weight 83.1 kg 81 kg 81 kg Intake: Intake, IV Titration 160 Amount Sodium Chloride 0.9% 1, 160 000 ml @ 100 mls/hr IV . Q10H ONE Rx#:[id number] Oral 100 Output: Other 1500 Other: Voiding Method Toilet # Voids 1 - Labs CBC & Chem 7: 06/06/17 05:38 06/06/17 05:38 Labs: Abnormal Lab Results - Last 24 Hours (Table) 06/05/17 06/05/17 06/05/17 Range/Units 08:20 13:17 16:40 WBC (3.8-10.6) k/uL RBC (3.80-5.40) m/uL Hgb (11.4-16.0) gm/dL Hct (34.0-46.0) % MCV (80.0-100.0) fL MCHC (31.0-37.0) g/dL RDW (11.5-15.5) % Neutrophils # (1.3-7.7) k/uL Eosinophils # (0-0.7) k/uL BUN (7-17) mg/dL Creatinine (0.52-1.04) mg/dL Glucose (74-99) mg/dL POC Glucose (mg/dL) 113 H 170 H (75-99) mg/dL Phosphorus (2.5-4.5) mg/dL Magnesium (1.6-2.3) mg/dL Alkaline Phosphatase (38-126) U/L Urine Appearance Turbid H (Clear) Urine Protein 1+ H (Negative) Urine Blood Small H (Negative) Urine Bilirubin 1+ H (Negative) Ur Leukocyte Esterase Large H (Negative) Urine RBC 16 H (0-5) /hpf Urine WBC 170 H (0-5) /hpf Urine WBC Clumps Occasional H (None) /hpf Ur Squamous Epith Cells 51 H (0-4) /hpf Urine Bacteria Rare H (None) /hpf 06/05/17 06/05/17 06/05/17 Range/Units 20:53 20:54 20:54 WBC (3.8-10.6) k/uL RBC 3.36 L (3.80-5.40) m/uL Hgb 10.2 L (11.4-16.0) gm/dL Hct 33.8 L (34.0-46.0) % MCV 100.4 H (80.0-100.0) fL MCHC 30.2 L (31.0-37.0) g/dL RDW 18.5 H (11.5-15.5) % Neutrophils # 7.9 H (1.3-7.7) k/uL Eosinophils # (0-0.7) k/uL BUN 34 H (7-17) mg/dL Creatinine 4.25 H (0.52-1.04) mg/dL Glucose 71 L (74-99) mg/dL POC Glucose (mg/dL) 73 L (75-99) mg/dL Phosphorus (2.5-4.5) mg/dL Magnesium (1.6-2.3) mg/dL Alkaline Phosphatase (38-126) U/L Urine Appearance (Clear) Urine Protein (Negative) Urine Blood (Negative) Urine Bilirubin (Negative) Ur Leukocyte Esterase (Negative) Urine RBC (0-5) /hpf Urine WBC (0-5) /hpf Urine WBC Clumps (None) /hpf Ur Squamous Epith Cells (0-4) /hpf Urine Bacteria (None) /hpf 06/06/17 06/06/17 Range/Units 05:38 05:38 WBC 11.5 H (3.8-10.6) k/uL RBC 3.25 L (3.80-5.40) m/uL Hgb 10.0 L (11.4-16.0) gm/dL Hct 31.4 L (34.0-46.0) % MCV (80.0-100.0) fL MCHC (31.0-37.0) g/dL RDW 17.1 H (11.5-15.5) % Neutrophils # 8.5 H (1.3-7.7) k/uL Eosinophils # 0.8 H (0-0.7) k/uL BUN 40 H (7-17) mg/dL Creatinine 5.50 H* (0.52-1.04) mg/dL Glucose (74-99) mg/dL POC Glucose (mg/dL) (75-99) mg/dL Phosphorus 5.3 H (2.5-4.5) mg/dL Magnesium 2.4 H (1.6-2.3) mg/dL Alkaline Phosphatase 143 H (38-126) U/L Urine Appearance (Clear) Urine Protein (Negative) Urine Blood (Negative) Urine Bilirubin (Negative) Ur Leukocyte Esterase (Negative) Urine RBC (0-5) /hpf Urine WBC (0-5) /hpf Urine WBC Clumps (None) /hpf Ur Squamous Epith Cells (0-4) /hpf Urine Bacteria (None) /hpf Assessment and Plan Plan: Assessment: #1. End-stage renal disease maintained on hemodialysis on a Sunday schedule via right upper extremity AV graft. #2. Mild volume overload. Improved with ultrafiltration. #3. Hyperkalemia secondary to missed dialysis treatment yesterday. Resolved postdialysis. #4. Coronary artery disease status post multiple interventions. She does have chronic blockages. #5. 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 Phosphorus 5.3. #6. Insulin-dependent diabetes mellitus. #7. Chronic hypotension maintained on midodrine twice daily. #8. Metabolic acidosis secondary to chronic kidney disease and missed dialysis. Improved postdialysis. #9. Bradycardia. This has been an ongoing issue with the patient. Cardiology following. Plan: Hemodialysis today with goal 2 liters ultrafiltration. No other changes from nephrology standpoint.
[2017-06-06 11:53] LABS: Glucose,Whole Blood 123 mg/dL (75-99)
[2017-06-06] MEDS: LEVOFLOXACIN 250 MG TAB PO SCH (12:00)
--- NOTE | 2017-06-06 15:13 | P.PN ---
Subjective Progress Note Date: 06/06/17 This is a 62-year-old female with known history of coronary artery disease status post coronary bypass grafting surgery and PCI who was just discharged from the hospital and readmitted from the dialysis unit. Apparently in the dialysis unit patient was complaining of dizziness and she had an episode of bradycardia, no documentation of the bradycardia was noted. While in the hospital here T heart rate has consistently been in the 70s to 80s. She was seen and examined this morning, overall feeling much better. States she did have mild dizziness while standing earlier today. Spleen to the patient by Dr. Rothman that she does not meet criteria for pacemaker implantation however as an outpatient a Holter monitor may be recommended. Objective - Vital Signs Vital signs: Vital Signs Temp 98.1 F 06/06/17 11:29 Pulse 84 06/06/17 12:00 Resp 16 06/06/17 12:00 BP 115/60 06/06/17 12:00 Pulse Ox 99 06/06/17 11:29 Intake & Output 06/05/17 06/06/17 06/06/17 18:59 06:59 18:59 Intake Total 160 218 Output Total 1500 15 Balance -1340 203 Weight 83.1 kg 81 kg 81 kg Intake: Intake, IV Titration 160 Amount Sodium Chloride 0.9% 1, 160 000 ml @ 100 mls/hr IV . Q10H ONE Rx#:[id number] Oral 218 Output: Urine 15 Other 1500 Other: Voiding Method Toilet # Voids 1 - Exam PHYSICAL EXAMINATION: HEENT: Head is atraumatic, normocephalic. Pupils equal, round. Neck is supple. There is no elevated jugular venous pressure. HEART EXAMINATION: Heart S1, S2 systolic murmur is heard . CHEST EXAMINATION: Lungs are clear to auscultation and precussion. No chest wall tenderness is noted on palpation or with deep breathing. ABDOMEN: Soft, nontender. Bowel sounds are heard. No organomegaly noted. EXTREMITIES: 2+ peripheral pulses with no evidence of peripheral edema and no calf tenderness noted. NEUROLOGIC patient is awake, alert and oriented -3. . - Labs CBC & Chem 7: 06/06/17 05:38 06/06/17 05:38 Labs: Abnormal Lab Results - Last 24 Hours (Table) 06/05/17 06/05/17 06/05/17 Range/Units 08:20 16:40 20:53 WBC (3.8-10.6) k/uL RBC (3.80-5.40) m/uL Hgb (11.4-16.0) gm/dL Hct (34.0-46.0) % MCV (80.0-100.0) fL MCHC (31.0-37.0) g/dL RDW (11.5-15.5) % Neutrophils # (1.3-7.7) k/uL Eosinophils # (0-0.7) k/uL BUN (7-17) mg/dL Creatinine (0.52-1.04) mg/dL Glucose (74-99) mg/dL POC Glucose (mg/dL) 170 H 73 L (75-99) mg/dL Phosphorus (2.5-4.5) mg/dL Magnesium (1.6-2.3) mg/dL Alkaline Phosphatase (38-126) U/L Urine Appearance Turbid H (Clear) Urine Protein 1+ H (Negative) Urine Blood Small H (Negative) Urine Bilirubin 1+ H (Negative) Ur Leukocyte Esterase Large H (Negative) Urine RBC 16 H (0-5) /hpf Urine WBC 170 H (0-5) /hpf Urine WBC Clumps Occasional H (None) /hpf Ur Squamous Epith Cells 51 H (0-4) /hpf Urine Bacteria Rare H (None) /hpf 06/05/17 06/05/17 06/06/17 Range/Units 20:54 20:54 05:38 WBC (3.8-10.6) k/uL RBC 3.36 L (3.80-5.40) m/uL Hgb 10.2 L (11.4-16.0) gm/dL Hct 33.8 L (34.0-46.0) % MCV 100.4 H (80.0-100.0) fL MCHC 30.2 L (31.0-37.0) g/dL RDW 18.5 H (11.5-15.5) % Neutrophils # 7.9 H (1.3-7.7) k/uL Eosinophils # (0-0.7) k/uL BUN 34 H 40 H (7-17) mg/dL Creatinine 4.25 H 5.50 H* (0.52-1.04) mg/dL Glucose 71 L (74-99) mg/dL POC Glucose (mg/dL) (75-99) mg/dL Phosphorus 5.3 H (2.5-4.5) mg/dL Magnesium 2.4 H (1.6-2.3) mg/dL Alkaline Phosphatase 143 H (38-126) U/L Urine Appearance (Clear) Urine Protein (Negative) Urine Blood (Negative) Urine Bilirubin (Negative) Ur Leukocyte Esterase (Negative) Urine RBC (0-5) /hpf Urine WBC (0-5) /hpf Urine WBC Clumps (None) /hpf Ur Squamous Epith Cells (0-4) /hpf Urine Bacteria (None) /hpf 06/06/17 06/06/17 Range/Units 05:38 11:48 WBC 11.5 H (3.8-10.6) k/uL RBC 3.25 L (3.80-5.40) m/uL Hgb 10.0 L (11.4-16.0) gm/dL Hct 31.4 L (34.0-46.0) % MCV (80.0-100.0) fL MCHC (31.0-37.0) g/dL RDW 17.1 H (11.5-15.5) % Neutrophils # 8.5 H (1.3-7.7) k/uL Eosinophils # 0.8 H (0-0.7) k/uL BUN (7-17) mg/dL Creatinine (0.52-1.04) mg/dL Glucose (74-99) mg/dL POC Glucose (mg/dL) 123 H (75-99) mg/dL Phosphorus (2.5-4.5) mg/dL Magnesium (1.6-2.3) mg/dL Alkaline Phosphatase (38-126) U/L Urine Appearance (Clear) Urine Protein (Negative) Urine Blood (Negative) Urine Bilirubin (Negative) Ur Leukocyte Esterase (Negative) Urine RBC (0-5) /hpf Urine WBC (0-5) /hpf Urine WBC Clumps (None) /hpf Ur Squamous Epith Cells (0-4) /hpf Urine Bacteria (None) /hpf Assessment and Plan Plan: Assessment and plan #1 episode of bradycardia, no documentation of that in the chart. Heart rate here in the 70s to 80s #2 history of coronary artery disease status post coronary bypass grafting surgery and PCI, stable #3 hypotension #4 end-stage renal disease on hemodialysis Number 5 hyperlipidemia 6 diabetes Plan From cardiology's perspective, patient may be able to be discharged once cleared by the primary. We'll make her a follow-up appointment in the office post discharge. We will also give the patient on Holter monitor as an outpatient. DNP note has been reviewed, I agree with a documented findings and plan of care. Patient was seen and examined.
[2017-06-06 16:44] LABS: Glucose,Whole Blood 155 mg/dL (75-99)
[2017-06-06] MEDS: ACETAMINOPHEN TAB 325 MG TAB PO PRN (18:18)
[2017-06-06] MEDS: CLOPIDOGREL 75 MG TAB PO SCH (20:50)
[2017-06-06] MEDS: SERTRALINE 50 MG TAB PO SCH (20:50)
[2017-06-06] MEDS: ATORVASTATIN 40 MG TAB PO SCH (20:50)
[2017-06-06] MEDS: MONTELUKAST 10 MG TAB PO SCH (20:50)
[2017-06-06] MEDS: INSULIN DETEMIR 100 UNIT/ML 10 ML VIAL SQ SCH (21:33)
[2017-06-06 21:49] LABS: Glucose,Whole Blood 123 mg/dL (75-99)
[2017-06-06] MEDS ORDERED: ALPRAZolam 0.25 MG TAB PO PRN (22:04)
[2017-06-06] MEDS ORDERED: ONDANSETRON 4 MG/2 ML VIAL IVP PRN (22:04)
[2017-06-06] MEDS ORDERED: guaiFENesin-DM 100-10MG/5ML 10 ML CUP PO PRN (22:05)
[2017-06-07] MEDS: ACETAMINOPHEN TAB 325 MG TAB PO PRN (04:40)
[2017-06-07 06:18] LABS: Glucose,Whole Blood 95 mg/dL (75-99)
[2017-06-07] MEDS: MIDODRINE 5 MG TAB PO SCH ×2 (06:29→12:10)
[2017-06-07] MEDS: INSULIN ASPART 100 UNIT/ML 1 ML 10 ML VIAL SQ SCH ×2 (06:31→12:14)
[2017-06-07 06:36] LABS: Anisocytosis Slight; Basophils % (A) 0 %; Eosinophils # (A) 0.6 k/uL (0-0.7); Eosinophils % (A) 7 %; HCT 29.5 % (34.0-46.0); HGB 9.3 gm/dL (11.4-16.0); Hypochromasia Slight; Lymphocytes # (A) 1.5 k/uL (1.0-4.8); Lymphocytes % (A) 17 %; MCH 30.8 pg (25.0-35.0); MCHC 31.6 g/dL (31.0-37.0); MCV 97.3 fL (80.0-100.0); Macrocytosis Slight; Mean Platelet Volume 7.9; Monocytes # (A) 0.5 k/uL (0-1.0); Monocytes % (A) 5 %; Neutrophils # (A) 6.2 k/uL (1.3-7.7); Neutrophils % (A) 69 %; Platelet Count 200 k/uL (150-450); RBC 3.04 m/uL (3.80-5.40); RDW 16.9 % (11.5-15.5); WBC 8.9 k/uL (3.8-10.6)
[2017-06-07 06:41] LABS: Albumin 3.6 g/dL (3.5-5.0); Calcium 9.3 mg/dL (8.4-10.2); Potassium 4.5 mmol/L (3.5-5.1); Total Bilirubin 0.3 mg/dL (0.2-1.3)
[2017-06-07] MEDS: ASPIRIN 81 MG PO SCH (08:22)
[2017-06-07] MEDS: ALLOPURINOL 100 MG TAB PO SCH (08:22)
[2017-06-07] MEDS: FAMOTIDINE 20 MG TAB PO SCH (08:23)
[2017-06-07] MEDS: CINACALCET 30 MG TAB PO SCH (08:23)
[2017-06-07] MEDS: FERROUS SULFATE 325 MG TAB PO SCH (08:23)
[2017-06-07] MEDS: GABAPENTIN 100 MG CAP PO SCH (08:23)
[2017-06-07] MEDS: HEPARIN SODIUM,PORCINE 5,000 UNIT/ML 1 ML VIAL SQ SCH (08:24)
[2017-06-07 08:33] VITALS: BP 91/46; PULSE 83; RESP 16; TEMP 97.1
[2017-06-07] MEDS ORDERED: DOCUSATE 100 MG CAP PO SCH (10:15)
--- NOTE | 2017-06-07 10:43 | P.PN ---
Subjective Progress Note Date: 06/07/17 This is a 62-year-old female with known history of coronary artery disease status post coronary bypass grafting surgery and PCI who was just discharged from the hospital and readmitted from the dialysis unit. Apparently in the dialysis unit patient was complaining of dizziness and she had an episode of bradycardia, no documentation of the bradycardia was noted. While in the hospital here her heart rate has consistently been in the 70s to 80s. She was seen and examined this morning, overall feeling much better. Denies any further dizziness, breathing is stable. Having occasional PVCs on the monitor. Objective - Vital Signs Vital signs: Vital Signs Temp 97.1 F L 06/07/17 08:00 Pulse 83 06/07/17 08:00 Resp 16 06/07/17 08:00 BP 91/46 06/07/17 08:00 Pulse Ox 100 06/07/17 08:00 Intake & Output 06/06/17 06/07/17 06/07/17 18:59 06:59 18:59 Intake Total 218 120 Output Total 15 Balance 203 120 Weight 81 kg 79.4 kg Intake: Oral 218 120 Output: Urine 15 Other: Voiding Method Toilet Toilet # Voids 0 0 - Exam PHYSICAL EXAMINATION: HEENT: Head is atraumatic, normocephalic. Pupils equal, round. Neck is supple. There is no elevated jugular venous pressure. HEART EXAMINATION: Heart S1, S2 systolic murmur is heard . CHEST EXAMINATION: Lungs are clear to auscultation and precussion. No chest wall tenderness is noted on palpation or with deep breathing. ABDOMEN: Soft, nontender. Bowel sounds are heard. No organomegaly noted. EXTREMITIES: 2+ peripheral pulses with no evidence of peripheral edema and no calf tenderness noted. NEUROLOGIC patient is awake, alert and oriented -3. . - Labs CBC & Chem 7: 06/07/17 05:19 06/07/17 05:19 Labs: Abnormal Lab Results - Last 24 Hours (Table) 06/06/17 06/06/17 06/06/17 Range/Units 11:48 16:43 21:32 RBC (3.80-5.40) m/uL Hgb (11.4-16.0) gm/dL Hct (34.0-46.0) % RDW (11.5-15.5) % BUN (7-17) mg/dL Creatinine (0.52-1.04) mg/dL POC Glucose (mg/dL) 123 H 155 H 123 H (75-99) mg/dL Total Protein (6.3-8.2) g/dL 06/07/17 06/07/17 Range/Units 05:19 05:19 RBC 3.04 L (3.80-5.40) m/uL Hgb 9.3 L (11.4-16.0) gm/dL Hct 29.5 L (34.0-46.0) % RDW 16.9 H (11.5-15.5) % BUN 27 H (7-17) mg/dL Creatinine 4.50 H (0.52-1.04) mg/dL POC Glucose (mg/dL) (75-99) mg/dL Total Protein 6.0 L (6.3-8.2) g/dL Microbiology - Last 24 Hours (Table) 06/06/17 12:03 Gram Stain - Preliminary Sputum Assessment and Plan Plan: Assessment and plan #1 episode of bradycardia, no documentation of that in the chart. Heart rate here in the 70s to 80s #2 history of coronary artery disease status post coronary bypass grafting surgery and PCI, stable #3 hypotension #4 end-stage renal disease on hemodialysis #5 hyperlipidemia 6 diabetes Plan From cardiology's perspective, patient may be able to be discharged once cleared by the primary. We'll make her a follow-up appointment in the office with Dr. Rothman post discharge. We will also give the patient on Holter monitor as an outpatient. DNP note has been reviewed, I agree with a documented findings and plan of care. Patient was seen and examined.
--- NOTE | 2017-06-07 11:36 | P.PN ---
Subjective Patient is seen in follow-up for end-stage renal disease. She is maintained on hemodialysis on a Sunday schedule. She presented with bradycardia and dizziness. In the hospital her heart rate has been stable in the 70s to 80s. Her most recent blood pressure reading was 91/46. She does have chronic chest pain. Oral intake is fair. No vomiting or diarrhea. Vital signs are stable. General: The patient appeared well nourished and normally developed. HEENT: Head exam is unremarkable. Neck is without jugular venous distension. LUNGS: Lungs are clear to auscultation and percussion. Breath sounds decreased. HEART: Rate and Rhythm are regular. First and second heart sounds normal. No murmurs, rubs or gallops. ABDOMEN: Abdominal exam reveals normal bowel sounds. Non-tender and non- distended. No evidence of peritonitis. EXTREMITITES: No clubbing, cyanosis, or edema. Objective - Vital Signs Vital signs: Vital Signs Temp 97.1 F L 06/07/17 08:00 Pulse 83 06/07/17 08:00 Resp 16 06/07/17 08:00 BP 91/46 06/07/17 08:00 Pulse Ox 100 06/07/17 08:00 Intake & Output 06/06/17 06/07/17 06/07/17 18:59 06:59 18:59 Intake Total 218 120 Output Total 15 Balance 203 120 Weight 81 kg 79.4 kg Intake: Oral 218 120 Output: Urine 15 Other: Voiding Method Toilet Toilet Toilet # Voids 0 0 - Labs CBC & Chem 7: 06/07/17 05:19 06/07/17 05:19 Labs: Abnormal Lab Results - Last 24 Hours (Table) 06/06/17 06/06/17 06/06/17 Range/Units 11:48 16:43 21:32 RBC (3.80-5.40) m/uL Hgb (11.4-16.0) gm/dL Hct (34.0-46.0) % RDW (11.5-15.5) % BUN (7-17) mg/dL Creatinine (0.52-1.04) mg/dL POC Glucose (mg/dL) 123 H 155 H 123 H (75-99) mg/dL Total Protein (6.3-8.2) g/dL 06/07/17 06/07/17 Range/Units 05:19 05:19 RBC 3.04 L (3.80-5.40) m/uL Hgb 9.3 L (11.4-16.0) gm/dL Hct 29.5 L (34.0-46.0) % RDW 16.9 H (11.5-15.5) % BUN 27 H (7-17) mg/dL Creatinine 4.50 H (0.52-1.04) mg/dL POC Glucose (mg/dL) (75-99) mg/dL Total Protein 6.0 L (6.3-8.2) g/dL Microbiology - Last 24 Hours (Table) 06/06/17 12:03 Gram Stain - Preliminary Sputum Assessment and Plan Plan: Assessment: #1. End-stage renal disease maintained on hemodialysis on a Sunday schedule via right upper extremity AV graft. #2. Mild volume overload. Improved with ultrafiltration. #3. Hyperkalemia secondary to missed dialysis treatment yesterday. Resolved postdialysis. #4. Coronary artery disease status post multiple interventions. She does have chronic blockages. #5. 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 Phosphorus 5.3. #6. Insulin-dependent diabetes mellitus. #7. Chronic hypotension maintained on midodrine twice daily. #8. Metabolic acidosis secondary to chronic kidney disease and missed dialysis. Improved postdialysis. #9. Bradycardia. This has been an ongoing issue with the patient. Cardiology following. Her heart rate now is in the 70s to 80s. Plan: Hemodialysis tomorrow with goal 2 liters ultrafiltration. No other changes from nephrology standpoint. Potential discharge today.
[2017-06-07 11:52] LABS: Glucose,Whole Blood 215 mg/dL (75-99)
--- NOTE | 2017-06-07 11:53 | P.DS ---
Providers Date of admission: 06/05/17 09:39 Expected date of discharge: 06/07/17 Attending physician: Kyle Campos Consults: 06/05/17 09:35 Consult Physician Urgent Consulting Provider: [facility] Consult Reason/Comments: Bradycardia Do you want consulting provider notified?: Yes Consult Physician Urgent Consulting Provider: Gricelda Andrea Consult Reason/Comments: Chronic renal failure, hyperkalemia Do you want consulting provider notified?: Yes Primary care physician: Kyle Campos [facility] Course: Discharge diagnosis 1. Bradycardia and hypotension: This is a recurrent issue for this patient. Cardiology and nephrology has been consulted. The Coreg was discontinued by cardiology. Midodrine reordered by nephrology. No further episodes of bradycardia. Systolic blood pressure has been in the 90s. Patient is asymptomatic. Patient has been cleared by cardiology for discharge. She'll be set up with a Holter monitor outpatient with cardiology 2. Acute tracheobronchitis will resume her Levaquin 250 mg by mouth daily. Await results on sputum culture. Chest x-ray shows no evidence of pneumonia area continue Levaquin for 7 more days 3. End-stage renal disease on hemodialysis Sunday 4. Hyperkalemia secondary to missing dialysis treatment, improved with dialysis. 5. Metabolic acidosis secondary to chronic kidney disease and missing dialysis. 6. Insulin-dependent diabetes mellitus. Resume home Lantus and start sliding scale coverage. A1c last admission 6.4 7. Leukocytosis white count 14.8 possibly related to bronchitis. Levaquin started. Repeat labs in a.m. Urinalysis is likely contaminate. Showing a large amount of squamous epithelial cells 8. History of myocardial infarction and coronary artery disease with previous CABG and cardiac stent 9. Anemia of chronic kidney disease and iron deficiency anemia. Resume patient 's iron supplement 10. Constipation add [facility] Hospital course This is a 62-year-old female with a known past medical history of end-stage renal disease on hemodialysis Sunday, diabetes mellitus, myocardial infarction, coronary artery disease with previous coronary bypass grafting and cardiac stent. Patient came into the emergency room with complaints of bradycardia and hypotension at the dialysis center. Patient reports that she has not been feeling well. She went to see Dr. Campos in the office yesterday and was started on Levaquin for an acute bronchitis. Patient took 1 dose of Levaquin yesterday. she did miss her dialysis treatment yesterday for not feeling well. She therefore rescheduled her dialysis for this morning. When she went to the dialysis Center her vitals show that she is bradycardiac with a heart rate in the 40s and hypotensive with a systolic blood pressure in the 80s. She also was dizzy. She was told to go to the emergency room. She will receive dialysis today. Both nephrology and cardiology are following. Coreg was discontinued. Patient has been receiving hemodialysis during hospitalization with no episodes of bradycardia. Heart rate has been ranging the 70s to 80s. Cardiology discontinued the Coreg. They're recommending that she follows up with Dr. Rothman in the office for Holter monitor. Also, patient is continue 7 more days of Levaquin for her bronchitis. Her cough is improving. We do not have sputum culture result at this time doesn't need to be followed up with in the office. Chest x-ray showed no pneumonia. Iron supplement was given for her iron deficiency anemia. Patient is medically stable for discharge. She has been cleared by consulting physicians. I performed an examination of the patient and discussed their management with the physician Life Cycle Assessment Analyst. I have reviewed the Physician Life Cycle Assessment Analyst's notes and agree with the documented findings and plan of care Patient Condition at Discharge: Stable Plan - Discharge Summary Discharge Rx Participant: No New Discharge Prescriptions: New Ferrous Sulfate [Iron (65 MG Elemental)] 325 mg PO BID #60 tab Levofloxacin [Levaquin] 250 mg PO Q24H #7 tab Continue Gabapentin [Neurontin] 100 mg PO BID Allopurinol [Zyloprim] 100 mg PO DAILY Omeprazole [PriLOSEC] 20 mg PO BID Insulin Glargine [Lantus] 35 unit SQ HS Mv-Min/Vit C/Glu/Karla HCl/Hc124 [Airborne Tablet Chewable] 1 tab PO QID PRN PRN Reason: IMMUNE HEALTH Loperamide [Imodium] 2 mg PO QID PRN PRN Reason: Diarrhea Sertraline [Zoloft] 50 mg PO HS Insulin Aspart [NovoLOG (formulary)] See Protocol SQ AC-TID Cinacalcet HCl [Sensipar] 30 mg PO HS Montelukast [Singulair] 10 mg PO HS #30 tab Atorvastatin [Lipitor] 40 mg PO HS Aspirin [Adult Low Dose Aspirin EC] 81 mg PO DAILY #30 tablet. Clopidogrel [Plavix] 75 mg PO HS #30 tab Midodrine HCl [ProAmatine] 10 mg PO BID Nitroglycerin Sl Tabs [Nitrostat] 0.4 mg SUBLINGUAL Q5M PRN #25 tab PRN Reason: Chest Pain Discontinued Carvedilol [Coreg] 3.125 mg PO BID PRN PRN Reason: HIGH BLOOD PRESSURE Discharge Medication List Allopurinol [Zyloprim] 100 mg PO DAILY 11/15/14 [History] Gabapentin [Neurontin] 100 mg PO BID 11/15/14 [History] Omeprazole [PriLOSEC] 20 mg PO BID 01/31/15 [History] Insulin Glargine [Lantus] 35 unit SQ HS 03/03/15 [History] Loperamide [Imodium] 2 mg PO QID PRN 03/03/15 [History] Mv-Min/Vit C/Glu/Karla HCl/Hc124 [Airborne Tablet Chewable] 1 tab PO QID PRN 03/03 [History] Sertraline [Zoloft] 50 mg PO HS 03/03/15 [History] Cinacalcet HCl [Sensipar] 30 mg PO HS 05/06/16 [History] Insulin Aspart [NovoLOG (formulary)] See Protocol SQ AC-TID 05/06/16 [History] Montelukast [Singulair] 10 mg PO HS #30 tab 06/30/16 [Rx] Atorvastatin [Lipitor] 40 mg PO HS 03/19/17 [History] Aspirin [Adult Low Dose Aspirin EC] 81 mg PO DAILY #30 tablet. 04/05/17 [Rx] Clopidogrel [Plavix] 75 mg PO HS #30 tab 04/05/17 [Rx] Midodrine HCl [ProAmatine] 10 mg PO BID 05/28/17 [History] Nitroglycerin Sl Tabs [Nitrostat] 0.4 mg SUBLINGUAL Q5M PRN #25 tab 05/31/17 [Rx ] Ferrous Sulfate [Iron (65 MG Elemental)] 325 mg PO BID #60 tab 06/07/17 [Rx] Levofloxacin [Levaquin] 250 mg PO Q24H #7 tab 06/07/17 [Rx] Follow up Appointment(s)/Referral(s): Kyle Campos MD [Primary Care Provider] - 1 Week Song Rothman MD [STAFF PHYSICIAN] - 1 Week Activity/Diet/Wound Care/Special Instructions: Diet: renal, diabetic Activity: as tolerated Discharge Disposition: HOME SELF-CARE
[2017-06-07] MEDS: LEVOFLOXACIN 250 MG TAB PO SCH (12:10)
== END 2017-06-07 14:25 | disposition home or self-care (01) | DRG 314 ==
LOC: EC 07:02 → 6SEL 09:39
PROVIDERS: ADMIT Internal Medicine; ATTEND Internal Medicine
PROC: 5A1D70Z Performance of Urinary Filtration, Intermittent, Less than 6 Hours Per Day (ICD-10-PCS; principal; 2017-06-05)
DX: I95.89 Other hypotension (principal); N18.6 End stage renal disease; I13.2 Hypertensive heart and chronic kidney disease with heart failure and with stage 5 chronic kidney disease, or end stage renal disease; E11.22 Type 2 diabetes mellitus with diabetic chronic kidney disease; E11.40 Type 2 diabetes mellitus with diabetic neuropathy, unspecified; I08.1 Rheumatic disorders of both mitral and tricuspid valves; E87.2 Acidosis; E87.5 Hyperkalemia; J20.9 Acute bronchitis, unspecified; R00.1 Bradycardia, unspecified; I50.9 Heart failure, unspecified; I25.10 Atherosclerotic heart disease of native coronary artery without angina pectoris; K59.00 Constipation, unspecified; D63.1 Anemia in chronic kidney disease; Z99.2 Dependence on renal dialysis; D50.9 Iron deficiency anemia, unspecified; E20.9 Hypoparathyroidism, unspecified; E78.5 Hyperlipidemia, unspecified; G89.29 Other chronic pain; I49.3 Ventricular premature depolarization; I25.2 Old myocardial infarction; F32.9 Major depressive disorder, single episode, unspecified; M10.9 Gout, unspecified; Z98.42 Cataract extraction status, left eye; Z98.41 Cataract extraction status, right eye; Z96.1 Presence of intraocular lens; Z79.82 Long term (current) use of aspirin; Z79.02 Long term (current) use of antithrombotics/antiplatelets; Z79.4 Long term (current) use of insulin; Z79.899 Other long term (current) drug therapy; Z87.440 Personal history of urinary (tract) infections; Z91.15 Patient's noncompliance with renal dialysis; Z95.5 Presence of coronary angioplasty implant and graft; Z95.1 Presence of aortocoronary bypass graft; Z88.5 Allergy status to narcotic agent; Z88.1 Allergy status to other antibiotic agents; Z88.0 Allergy status to penicillin; Z91.013 Allergy to seafood; Z88.8 Allergy status to other drugs, medicaments and biological substances; Z91.018 Allergy to other foods; Z91.048 Other nonmedicinal substance allergy status
CPT/HCPCS: 36415; 71046; 80048; 80053; 81001; 82550; 82553; 83735; 84100; 85025; 87070; 87205; 90935; 93005; 96360; 96361; 99285

== ENCOUNTER → 2017-06-14 | Outpatient (CLI) | payer MEDICARE, BC ==
--- NOTE | 2017-06-15 07:20 | XR ---
EXAMINATION TYPE: XR Hip Complete LT DATE OF EXAM: 06/14/2017 CLINICAL HISTORY: Left hip pain after fall injury yesterday. TECHNIQUE: AP and frogleg views of the left hip are obtained. COMPARISON: None. FINDINGS: There is no acute fracture/dislocation evident in the left hip. There is mild axial joint space loss with superior lateral mild to moderate spurring. Vascular consultation left groin in pelvi c region is present. Osseous structures are somewhat demineralized. IMPRESSION: There is no acute fracture or dislocation in the left hip.
== END | disposition home or self-care (01) ==
LOC: RADXRMAIN 18:02
PROVIDERS: ATTEND Internal Medicine
DX: M25.552 Pain in left hip (principal)
CPT/HCPCS: 73502

== ENCOUNTER 2017-07-21 10:03 | Inpatient (IN) | payer MEDICARE, BC ==
--- NOTE | 2017-07-21 10:26 | ED ---
General Adult HPI - General Chief complaint: Weakness Stated complaint: Weakness Time Seen by Provider: 07/21/17 10:08 Source: patient, RN notes reviewed, old records reviewed Mode of arrival: EMS Limitations: no limitations - History of Present Illness Initial comments: This is a 62-year-old female the ER for evaluation of syncope and weakness. Patient does not remember events of poor historian, history obtained from EMS. Patient transferred to Hospital and EMS was called secondary weakness patient going to the ground at home per patient missed dialysis 2 days - Related Data Home Medications Medication Instructions Recorded Confirmed Allopurinol [Zyloprim] 100 mg PO DAILY 11/15/14 07/21/17 Gabapentin [Neurontin] 100 mg PO BID 11/15/14 07/21/17 Omeprazole [PriLOSEC] 20 mg PO DAILY 01/31/15 07/21/17 Insulin Glargine [Lantus] 35 unit SQ HS 03/03/15 07/21/17 Sertraline [Zoloft] 50 mg PO HS 03/03/15 07/21/17 Cinacalcet HCl [Sensipar] 30 mg PO HS 05/06/16 07/21/17 Insulin Aspart [NovoLOG See Protocol SQ AC-TID 05/06/16 07/21/17 (formulary)] Atorvastatin [Lipitor] 40 mg PO HS 03/19/17 07/21/17 Aspirin [Adult Low Dose Aspirin EC] 81 mg PO HS 06/18/17 07/21/17 Calcium Acetate [PhosLo] 2,001 mg PO AC-TID 06/18/17 07/21/17 ALPRAZolam [Xanax] 0.25 mg PO HS 07/21/17 07/21/17 Carvedilol [Coreg] 3.125 mg PO BID PRN 07/21/17 07/21/17 Midodrine HCl [ProAmatine] 10 mg PO BID 07/21/17 07/21/17 Pantoprazole [Protonix] 40 mg PO HS 07/21/17 07/21/17 Slow-Mag 71.5 mg PO DAILY 07/21/17 07/21/17 Slow-Mag 143 mg PO HS 07/21/17 07/21/17 Previous Rx's Medication Instructions Recorded Montelukast [Singulair] 10 mg PO HS #30 tab 06/30/16 Clopidogrel [Plavix] 75 mg PO HS #30 tab 04/05/17 Nitroglycerin Sl Tabs [Nitrostat] 0.4 mg SUBLINGUAL Q5M PRN #25 tab 05/31/17 Allergies Allergy/AdvReac Type Severity Reaction Status Date / Time adhesive Allergy Rash/Hives Verified 07/21/17 12:28 cephalexin monohydrate Allergy Rash/Hives Verified 07/21/17 12:28 [From Keflex] hydromorphone HCl Allergy Hallucinati Verified 07/21/17 12:28 [From Dilaudid] ons iodine Allergy Rash/Hives Verified 07/21/17 12:28 Penicillins Allergy Unknown Verified 07/21/17 12:28 Childhood povidone-iodine Allergy Unknown Verified 07/21/17 12:28 [From Betadine] shellfish derived [Shrimp] Allergy Rash/Hives Verified 07/21/17 12:28 soap [From Betadine] Allergy Unknown Verified 07/21/17 12:28 codeine AdvReac Confusion Verified 07/21/17 12:28 fentanyl AdvReac Unknown Verified 07/21/17 12:28 hydrocodone bitartrate AdvReac Itching Verified 07/21/17 12:28 [From Vicodin] midazolam [From Versed] AdvReac Unknown Verified 07/21/17 12:28 morphine AdvReac Hallucinati Verified 07/21/17 12:28 ons tramadol AdvReac Itching Verified 07/21/17 12:28 artifical sweetener AdvReac Unknown Uncoded 07/21/17 10:13 Review of Systems ROS Statement: Those systems with pertinent positive or pertinent negative responses have been documented in the HPI. ROS Other: All systems not noted in ROS Statement are negative. Past Medical History Past Medical History: Coronary Artery Disease (CAD), Chest Pain / Angina, Diabetes Mellitus, Hyperlipidemia, Hypertension, Myocardial Infarction ([place]), Renal Disease, Thyroid Disorder Additional Past Medical History / Comment(s): MIs, IDDM type II, GOUT R foot, diabetic neuropathy bilateral feet and now "all over", chronic ANEMIA, MITRAL and TRICUSID REGURGITATION, esrd gets hemodialysis [id number]., UTIs, bronchitis, hypoparathyroid, wears O2 at 2L/NC during dialysis only-has had bradycardia and hypotension during dialysis, hemorrhoids-have caused anemia in past, hyperkalemia Last Myocardial Infarction Date:: 04/01/17 History of Any Multi-Drug Resistant Organisms: None Reported Past Surgical History: Coronary Bypass/CABG, Heart Catheterization, Heart Catheterization With Stent Additional Past Surgical History / Comment(s): Cardiac caths-tx medially/pt recently had cardiac cath while in [place] 04/2017, PCI/STENTS, 2015-3 VESSEL CABG, AV fistula R upper arm, colonoscopy-normal, bilateral cataract removal with lens implants, bilateral eye laser sx to remove fluid. Past Anesthesia/Blood Transfusion Reactions: Previous Problems w/ Anesthesia Additional Past Anesthesia/Blood Transfusion Reaction / Comment(s): POST OP DILERIUM/AGITATION/PSYCHOSIS-RESOLVED. Pt states she had a problem with hypotension last time she received versed. Date of Last Stent Placement:: 04/03/17 Past Psychological History: Depression Smoking Status: Never smoker Past Alcohol Use History: None Reported Past Drug Use History: None Reported - Past Family History Mother Family Medical History: Diabetes Mellitus, Myocardial Infarction ([place]), Thyroid Disorder Additional Family Medical History / Comment(s): CABG, gout, hypothyroid. Mother is 80yrs old. Sister(s) Family Medical History: Diabetes Mellitus, Thyroid Disorder Father Family Medical History: Diabetes Mellitus, Myocardial Infarction ([place]) Additional Family Medical History / Comment(s): Father at the age of 67yrs of a [place] General Exam Limitations: no limitations General appearance: alert, in no apparent distress, lethargic, in distress Head exam: Present: atraumatic, normocephalic, normal inspection Eye exam: Present: normal appearance, PERRL, EOMI. Absent: scleral icterus, conjunctival injection, periorbital swelling ENT exam: Present: normal exam, mucous membranes moist Neck exam: Present: normal inspection. Absent: tenderness, meningismus, lymphadenopathy Respiratory exam: Present: normal lung sounds bilaterally. Absent: respiratory distress, wheezes, rales, rhonchi, stridor Cardiovascular Exam: Present: regular rate, normal rhythm, normal heart sounds. Absent: systolic murmur, diastolic murmur, rubs, gallop, clicks GI/Abdominal exam: Present: soft, normal bowel sounds. Absent: distended, tenderness, guarding, rebound, rigid Extremities exam: Present: normal inspection, full ROM, normal capillary refill. Absent: tenderness, pedal edema, joint swelling, calf tenderness Back exam: Present: normal inspection Neurological exam: Present: alert, oriented X3, CN II-XII intact Psychiatric exam: Present: normal affect, normal mood Skin exam: Present: warm, dry, intact, normal color. Absent: rash Course Vital Signs 07/21/17 07/21/17 07/21/17 10:05 11:29 12:40 Temperature 98 F Pulse Rate 88 82 75 Respiratory 18 16 16 Rate Blood Pressure 95/57 95/47 89/54 O2 Sat by Pulse 95 97 96 Oximetry EKG Findings - EKG Comments: EKG Findings:: EKG shows sinus rhythm rate of 80, OR 154, QRS 108, QTc 491 Medical Decision Making - Medical Decision Making 62 female the ER for evaluation, missed dialysis 2 days, patient does have weakness 3 days, positive troponin. Patient be admitted for anticoagulation cardiology and nephrology evaluation - Lab Data Result diagrams: 07/21/17 10:59 07/21/17 12:01 Lab Results 07/21/17 07/21/17 07/21/17 Range/Units 10:59 10:59 10:59 WBC 8.6 (3.8-10.6) k/uL RBC 3.96 (3.80-5.40) m/uL Hgb 11.8 (11.4-16.0) gm/dL Hct 39.2 (34.0-46.0) % MCV 99.2 (80.0-100.0) fL MCH 29.7 (25.0-35.0) pg MCHC 30.0 L (31.0-37.0) g/dL RDW 16.8 H (11.5-15.5) % Plt Count 201 (150-450) k/uL Neutrophils % 85 % Lymphocytes % 9 % Monocytes % 3 % Eosinophils % 2 % Basophils % 0 % Neutrophils # 7.3 (1.3-7.7) k/uL Lymphocytes # 0.8 L (1.0-4.8) k/uL Monocytes # 0.3 (0-1.0) k/uL Eosinophils # 0.1 (0-0.7) k/uL Basophils # 0.0 (0-0.2) k/uL Hypochromasia Moderate Anisocytosis Slight Macrocytosis Slight PT 10.6 (9.0-12.0) sec INR 1.1 (<1.2) APTT 21.8 L (22.0-30.0) sec Sodium (137-145) mmol/L Potassium (3.5-5.1) mmol/L Chloride (98-107) mmol/L Carbon Dioxide (22-30) mmol/L Anion Gap mmol/L BUN (7-17) mg/dL Creatinine (0.52-1.04) mg/dL Est GFR (MDRD) Af Amer (>60 ml/min/1.73 sqM) Est GFR (MDRD) Non-Af (>60 ml/min/1.73 sqM) Glucose (74-99) mg/dL Calcium (8.4-10.2) mg/dL Phosphorus (2.5-4.5) mg/dL Magnesium (1.6-2.3) mg/dL Total Bilirubin (0.2-1.3) mg/dL AST (14-36) U/L ALT (9-52) U/L Alkaline Phosphatase (38-126) U/L Total Creatine Kinase (30-135) U/L CK-MB (CK-2) (0.0-2.4) ng/mL CK-MB (CK-2) Rel Index Troponin I (0.000-0.034) ng/mL NT-Pro-B Natriuret Pep 62676 pg/mL Total Protein (6.3-8.2) g/dL Albumin (3.5-5.0) g/dL 07/21/17 07/21/17 Range/Units 12:01 12:01 WBC (3.8-10.6) k/uL RBC (3.80-5.40) m/uL Hgb (11.4-16.0) gm/dL Hct (34.0-46.0) % MCV (80.0-100.0) fL MCH (25.0-35.0) pg MCHC (31.0-37.0) g/dL RDW (11.5-15.5) % Plt Count (150-450) k/uL Neutrophils % % Lymphocytes % % Monocytes % % Eosinophils % % Basophils % % Neutrophils # (1.3-7.7) k/uL Lymphocytes # (1.0-4.8) k/uL Monocytes # (0-1.0) k/uL Eosinophils # (0-0.7) k/uL Basophils # (0-0.2) k/uL Hypochromasia Anisocytosis Macrocytosis PT (9.0-12.0) sec INR (<1.2) APTT (22.0-30.0) sec Sodium 139 (137-145) mmol/L Potassium 5.8 H (3.5-5.1) mmol/L Chloride 98 (98-107) mmol/L Carbon Dioxide 21 L (22-30) mmol/L Anion Gap 20 mmol/L BUN 51 H (7-17) mg/dL Creatinine 7.62 H* (0.52-1.04) mg/dL Est GFR (MDRD) Af Amer 7 (>60 ml/min/1.73 sqM) Est GFR (MDRD) Non-Af 5 (>60 ml/min/1.73 sqM) Glucose 188 H (74-99) mg/dL Calcium 10.4 H (8.4-10.2) mg/dL Phosphorus 7.2 H (2.5-4.5) mg/dL Magnesium 2.1 (1.6-2.3) mg/dL Total Bilirubin 0.6 (0.2-1.3) mg/dL AST 64 H (14-36) U/L ALT 48 (9-52) U/L Alkaline Phosphatase 182 H (38-126) U/L Total Creatine Kinase 61 (30-135) U/L CK-MB (CK-2) 4.0 H* (0.0-2.4) ng/mL CK-MB (CK-2) Rel Index 6.6 Troponin I 1.940 H* (0.000-0.034) ng/mL NT-Pro-B Natriuret Pep pg/mL Total Protein 6.3 (6.3-8.2) g/dL Albumin 4.1 (3.5-5.0) g/dL - Radiology Data Radiology results: report reviewed (Chest x-ray pelvis x-ray negative CT brain C -spine negative), image reviewed Critical Care Time Critical Care Time: Yes Total Critical Care Time: 31 Disposition Clinical Impression: Weakness, NSTEMI (non-ST elevated myocardial infarction) Disposition: ADMITTED IP TO THIS [facility] Condition: Serious Referrals: Kyle Campos MD [Primary Care Provider] - 1-2 days
[2017-07-21] MEDS ORDERED: SODIUM CHLORIDE 0.9% 1,000 ML IV STA (10:36)
[2017-07-21] MEDS ORDERED: SODIUM CHLORIDE 0.9% 500 ML IV STA (10:36)
[2017-07-21 11:11] LABS: Anisocytosis Slight; Basophils % (A) 0 %; Eosinophils # (A) 0.1 k/uL (0-0.7); Eosinophils % (A) 2 %; HCT 39.2 % (34.0-46.0); HGB 11.8 gm/dL (11.4-16.0); Hypochromasia Moderate; Lymphocytes # (A) 0.8 k/uL (1.0-4.8); Lymphocytes % (A) 9 %; MCH 29.7 pg (25.0-35.0); MCV 99.2 fL (80.0-100.0); Macrocytosis Slight; Mean Platelet Volume 8.2; Monocytes # (A) 0.3 k/uL (0-1.0); Monocytes % (A) 3 %; Neutrophils # (A) 7.3 k/uL (1.3-7.7); Neutrophils % (A) 85 %; Platelet Count 201 k/uL (150-450); RBC 3.96 m/uL (3.80-5.40); RDW 16.8 % (11.5-15.5); WBC 8.6 k/uL (3.8-10.6)
[2017-07-21 11:26] LABS: INR 1.1 (<1.2); Partial Thromboplastin Time 21.8 sec (22.0-30.0); Prothrombin Time 10.6 sec (9.0-12.0)
--- NOTE | 2017-07-21 12:27 | CT ---
EXAMINATION TYPE: CT brain norman dubon con DATE OF EXAM: 07/21/2017 COMPARISON: 02/07/2015 HISTORY: Syncopal episode today. Right sided neck pain and head pain CT DLP: 1576 mGycm, Automated exposure control for dose reduction was used. CONTRAST: Patient injected with 0 mL of Omnipaque 350. CT of the brain is performed utilizing 3 mm thick sections through the posterior fossa and 3 mm thick sections through the remaining calvarium. Study is performed within 24 hours of arrival to the hospital. No abnormal hyperdensity is present to suggest an acute intracranial hemorrhage. No mass lesion is evident. No acute infarcts are evident. Periventricular white matter hypodensity is present, likely on the ba sis of chronic white matter ischemic changes. This was present previously. Ventricles and sulci are slightly prominent for the patient age compatible with atrophy. Paranasal sinuses and mastoid air cells within the [id number] are clear. IMPRESSIONS: 1. Atrophy with periventricular white matter ischemic type changes. CT cervical spine. COMPARISON: None CT of the cervical spine is performed in the axial plane at 2 mm thick sections. Reconstructed image s in the coronal, and sagittal plane are reviewed on the computer. No acute fractures are evident. Vertebral body alignment is normal. Disc heights are preserved. Vertebral body heights are preserved. No spinal canal stenosis is evident. No neural foraminal stenosis is evident. There is some facet degenerative changes noted slightly greater on the left than the right. IMPRESSIONS: 1. Mild degenerative changes cervical spine. No acute osseous abnormality is evident.
--- NOTE | 2017-07-21 12:29 | XR ---
EXAMINATION TYPE: XR pelvis AP view DATE OF EXAM: 07/21/2017 COMPARISON: NONE HISTORY: Pain TECHNIQUE: AP pelvis FINDINGS: Femoral heads articulate with the acetabulum. Joint spaces are preserved. Vascular calcific ations noted. Sacroiliac joints and symphysis pubis are normal. No acute fractures are identified. IMPRESSION: 1. No acute osseous abnormality.
--- NOTE | 2017-07-21 12:29 | XR ---
EXAMINATION TYPE: XR chest 2V DATE OF EXAM: 07/21/2017 COMPARISON: 06/18/2017 INDICATION: Weakness TECHNIQUE: Frontal and lateral views of the chest are obtained. FINDINGS: The heart size is enlarged. Postsurgical changes from prior CABG are evident.. The pulmonary vasculature is normal. The lateral projection a posterior pleural effusion is present, likely on the left. This present prev iously. Subtle blunting of the left costophrenic angle is present. IMPRESSION: 1. Small posterior left pleural effusion, present previously.
[2017-07-21 12:30] LABS: Albumin 4.1 g/dL (3.5-5.0); Calcium 10.4 mg/dL (8.4-10.2); Magnesium 2.1 mg/dL (1.6-2.3); Phosphorus 7.2 mg/dL (2.5-4.5); Potassium 5.8 mmol/L (3.5-5.1); Total Bilirubin 0.6 mg/dL (0.2-1.3); Total Protein 6.3 g/dL (6.3-8.2)
[2017-07-21 13:02] LABS: Troponin I 1.94 ng/mL (0.000-0.034)
[2017-07-21] MEDS ORDERED: NITROGLYCERIN SL TABS 0.4 MG TAB SUBLINGUAL PRN ×2 (13:23→16:51)
[2017-07-21] MEDS ORDERED: ASPIRIN 81 MG PO STA (13:23)
[2017-07-21] MEDS ORDERED: HEPARIN SODIUM,PORCINE 5,000 UNIT/ML 1 ML VIAL IV ONE (13:23)
[2017-07-21] MEDS ORDERED: HEPARIN SODIUM,PORCINE 5,000 UNIT/ML 1 ML VIAL IV PRN (13:23)
[2017-07-21] MEDS: HEPARIN SOD,PORK IN 0.45% NACL 25,000 UNIT in 0.45% NACL 1 500ML.BAG IV SCH (14:26)
[2017-07-21] MEDS ORDERED: CARVEDILOL 3.125 MG TAB PO PRN (16:51)
[2017-07-21] MEDS ORDERED: SODIUM CHLORIDE 0.9% 500 ML IV ONE (16:54)
[2017-07-21 16:59] LABS: Glucose,Whole Blood 146 mg/dL (75-99)
[2017-07-21] MEDS: MIDODRINE 5 MG TAB PO SCH (17:44)
[2017-07-21] MEDS: CALCIUM ACETATE 667 MG CAP PO SCH (17:44)
[2017-07-21 19:50] LABS: Creatine Kinase MB 2.9 ng/mL (0.0-2.4); Troponin I 2.02 ng/mL (0.000-0.034)
[2017-07-21] MEDS: ACETAMINOPHEN TAB 325 MG TAB PO PRN (20:50)
[2017-07-21 21:01] LABS: Glucose,Whole Blood 129 mg/dL (75-99)
[2017-07-21] MEDS: INSULIN ASPART 100 UNIT/ML 1 ML 10 ML VIAL SQ SCH (21:03)
[2017-07-22] MEDS: ALPRAZolam 0.25 MG TAB PO SCH ×2 (00:02→21:32)
[2017-07-22] MEDS: ASPIRIN 81 MG PO SCH ×2 (00:02→21:32)
[2017-07-22] MEDS: CINACALCET 30 MG TAB PO SCH ×2 (00:02→21:33)
[2017-07-22] MEDS: ATORVASTATIN 40 MG TAB PO SCH ×2 (00:02→21:32)
[2017-07-22] MEDS: MONTELUKAST 10 MG TAB PO SCH ×2 (00:03→21:33)
[2017-07-22] MEDS: SERTRALINE 50 MG TAB PO SCH ×2 (00:03→21:33)
[2017-07-22] MEDS: GABAPENTIN 100 MG CAP PO SCH ×3 (00:03→21:33)
[2017-07-22] MEDS: PANTOPRAZOLE 40 MG TABLET PO SCH ×2 (00:03→21:33)
[2017-07-22] MEDS: CLOPIDOGREL 75 MG TAB PO SCH ×2 (00:03→21:32)
[2017-07-22] MEDS: INSULIN DETEMIR 100 UNIT/ML 10 ML VIAL SQ SCH ×2 (00:07→21:33)
[2017-07-22 00:19] LABS: Creatine Kinase MB 2.7 ng/mL (0.0-2.4); Troponin I 2.23 ng/mL (0.000-0.034)
[2017-07-22] MEDS: MIDODRINE 5 MG TAB PO SCH ×3 (04:31→17:45)
[2017-07-22] MEDS: ACETAMINOPHEN TAB 325 MG TAB PO PRN ×2 (04:34→21:34)
[2017-07-22 06:13] LABS: Glucose,Whole Blood 105 mg/dL (75-99)
[2017-07-22] MEDS: INSULIN ASPART 100 UNIT/ML 1 ML 10 ML VIAL SQ SCH ×4 (06:30→21:33)
[2017-07-22] MEDS: CALCIUM ACETATE 667 MG CAP PO SCH ×3 (06:31→17:45)
[2017-07-22 06:54] LABS: Anisocytosis Slight; Basophils % (A) 1 %; Eosinophils # (A) 0.2 k/uL (0-0.7); Eosinophils % (A) 2 %; HCT 37.2 % (34.0-46.0); HGB 10.9 gm/dL (11.4-16.0); Hypochromasia Marked; Lymphocytes # (A) 1.1 k/uL (1.0-4.8); Lymphocytes % (A) 13 %; MCH 29.6 pg (25.0-35.0); MCHC 29.3 g/dL (31.0-37.0); MCV 101.1 fL (80.0-100.0); Macrocytosis Slight; Mean Platelet Volume 8.5; Monocytes # (A) 0.4 k/uL (0-1.0); Monocytes % (A) 5 %; Neutrophils # (A) 6.6 k/uL (1.3-7.7); Neutrophils % (A) 78 %; Platelet Count 159 k/uL (150-450); RBC 3.69 m/uL (3.80-5.40); RDW 16.7 % (11.5-15.5); WBC 8.5 k/uL (3.8-10.6)
[2017-07-22 07:10] LABS: Calcium 9.8 mg/dL (8.4-10.2); Potassium 4.8 mmol/L (3.5-5.1)
[2017-07-22] MEDS: ALLOPURINOL 100 MG TAB PO SCH (08:43)
[2017-07-22] MEDS ORDERED: NON-FORMULARY DRUG (Omeprazole [Prilosec] 20 MG) PO SCH (09:00)
[2017-07-22] MEDS ORDERED: ASPIRIN 325 MG TAB PO SCH (09:00)
--- NOTE | 2017-07-22 10:05 | P.NPCON ---
History of Present Illness - Reason for Consult Consult date: 07/22/17 end stage renal disease - Chief Complaint Hypotension and weakness and syncope - History of Present Illness This is a 62-year-old female known to us with ESRD on dialysis Sunday. She came in after having missed her dialysis and was hypotensive at home supposedly and almost passed out or passed out for about 20 minutes. She was brought in by the EMS. She missed her Sunday dialysis because she was feeling weak and tired, and had arranged for her to be dialyzed yesterday Sunday but she became somewhat weak and actually she says she passed out for about 20 minutes. No history of seizures, no fall as her was with her. She was dialyzed last night Sunday for 3 hours and 2 L were taken off. She remains somewhat weak and tired but improved. Her troponins have gone up to 2.2. She denies any chest pain shortness of breath fever chills nausea vomiting. Did have some lower abdominal discomfort. Bowel movements are normal. Prior to this she is able to walk at home without any help. She has had chronic hypotension and is on Midrin. 10 mg 3 times a day. She is known with coronary artery disease, history of bypass graft as well as a stent. She did have significant elevation in troponin previously on 04/02/2017 at 3.5 and on 05/07/2016, her troponin was 15.1 Past Medical History Past Medical History: Coronary Artery Disease (CAD), Chest Pain / Angina, Diabetes Mellitus, Hyperlipidemia, Hypertension, Myocardial Infarction ([place]), Renal Disease, Thyroid Disorder Additional Past Medical History / Comment(s): MIs, IDDM type II, GOUT R foot, diabetic neuropathy bilateral feet and now "all over", chronic ANEMIA, MITRAL and TRICUSID REGURGITATION, esrd gets hemodialysis [id number]., UTIs, bronchitis, hypoparathyroid, wears O2 at 2L/NC during dialysis only-has had bradycardia and hypotension during dialysis, hemorrhoids-have caused anemia in past, hyperkalemia Last Myocardial Infarction Date:: 04/01/17 History of Any Multi-Drug Resistant Organisms: None Reported Past Surgical History: Coronary Bypass/CABG, Heart Catheterization, Heart Catheterization With Stent Additional Past Surgical History / Comment(s): Cardiac caths-tx medially/pt recently had cardiac cath while in [place] 04/2017, PCI/STENTS, 2015-3 VESSEL CABG, AV fistula R upper arm, colonoscopy-normal, bilateral cataract removal with lens implants, bilateral eye laser sx to remove fluid. Past Anesthesia/Blood Transfusion Reactions: Previous Problems w/ Anesthesia Additional Past Anesthesia/Blood Transfusion Reaction / Comment(s): POST OP DILERIUM/AGITATION/PSYCHOSIS-RESOLVED. Pt states she had a problem with hypotension last time she received versed. Date of Last Stent Placement:: 04/03/17 Past Psychological History: Depression Additional Psychological History / Comment(s): Pt lives with her spouse in a 2 story home that has 2 porch steps. 1 pet cat. pt has a cane,walker,w/c,shower chair/bsc if needed and a nebulizer. Spouse manages her medications. They have been 39 yrs. Smoking Status: Never smoker Past Alcohol Use History: None Reported Past Drug Use History: None Reported - Past Family History Mother Family Medical History: Diabetes Mellitus, Myocardial Infarction ([place]), Thyroid Disorder Additional Family Medical History / Comment(s): CABG, gout, hypothyroid. Mother is 80yrs old. Sister(s) Family Medical History: Diabetes Mellitus, Thyroid Disorder Father Family Medical History: Diabetes Mellitus, Myocardial Infarction ([place]) Additional Family Medical History / Comment(s): Father at the age of 67yrs of a [place] Medications and Allergies Home Medications Medication Instructions Recorded Confirmed Type Allopurinol [Zyloprim] 100 mg PO DAILY 11/15/14 07/21/17 History Gabapentin [Neurontin] 100 mg PO BID 11/15/14 07/21/17 History Omeprazole [PriLOSEC] 20 mg PO DAILY 01/31/15 07/21/17 History Insulin Glargine [Lantus] 35 unit SQ HS 03/03/15 07/21/17 History Sertraline [Zoloft] 50 mg PO HS 03/03/15 07/21/17 History Cinacalcet HCl [Sensipar] 30 mg PO HS 05/06/16 07/21/17 History Insulin Aspart [NovoLOG See Protocol SQ AC-TID 05/06/16 07/21/17 History (formulary)] Montelukast [Singulair] 10 mg PO HS #30 tab 06/30/16 07/21/17 Rx Atorvastatin [Lipitor] 40 mg PO HS 03/19/17 07/21/17 History Clopidogrel [Plavix] 75 mg PO HS #30 tab 04/05/17 07/21/17 Rx Nitroglycerin Sl Tabs [Nitrostat] 0.4 mg SUBLINGUAL Q5M PRN #25 tab 05/31/1708/05 Rx Aspirin [Adult Low Dose Aspirin EC] 81 mg PO HS 06/18/17 07/21/17 History Calcium Acetate [PhosLo] 2,001 mg PO AC-TID 06/18/17 07/21/17 History ALPRAZolam [Xanax] 0.25 mg PO HS 07/21/17 07/21/17 History Carvedilol [Coreg] 3.125 mg PO BID PRN 07/21/17 07/21/17 History Midodrine HCl [ProAmatine] 10 mg PO BID 07/21/17 07/21/17 History Pantoprazole [Protonix] 40 mg PO HS 07/21/17 07/21/17 History Allergies Allergy/AdvReac Type Severity Reaction Status Date / Time adhesive Allergy Rash/Hives Verified 07/21/17 12:28 cephalexin monohydrate Allergy Rash/Hives Verified 07/21/17 12:28 [From Keflex] hydromorphone HCl Allergy Hallucinati Verified 07/21/17 12:28 [From Dilaudid] ons iodine Allergy Rash/Hives Verified 07/21/17 12:28 Penicillins Allergy Unknown Verified 07/21/17 12:28 Childhood povidone-iodine Allergy Unknown Verified 07/21/17 12:28 [From Betadine] shellfish derived [Shrimp] Allergy Rash/Hives Verified 07/21/17 12:28 soap [From Betadine] Allergy Unknown Verified 07/21/17 12:28 codeine AdvReac Confusion Verified 07/21/17 12:28 fentanyl AdvReac Unknown Verified 07/21/17 12:28 hydrocodone bitartrate AdvReac Itching Verified 07/21/17 12:28 [From Vicodin] midazolam [From Versed] AdvReac Unknown Verified 07/21/17 12:28 morphine AdvReac Hallucinati Verified 07/21/17 12:28 ons tramadol AdvReac Itching Verified 07/21/17 12:28 artifical sweetener AdvReac Unknown Uncoded 07/21/17 10:13 Physical Exam Vitals: Vital Signs Temp Pulse Pulse Resp BP BP Pulse Ox 07/22/17 08:00 97.4 F L 85 18 96/59 100 07/22/17 04:00 97.3 F L 76 19 91/44 100 07/22/17 00:00 97.9 F 77 20 78/43 98 07/21/17 20:00 97.9 F 77 18 79/46 100 07/21/17 17:35 89/54 07/21/17 16:00 41 L 16 07/21/17 14:35 97.8 F 82 14 97/55 99 07/21/17 14:13 71 16 88/59 95 07/21/17 13:46 97.7 F 41 L 14 86/42 100 07/21/17 12:40 75 16 89/54 96 07/21/17 11:29 82 16 95/47 97 07/21/17 10:05 98 F 88 18 95/57 95 Intake and Output 07/21/17 07/22/17 07/22/17 22:59 06:59 14:59 Intake Total 240 597.844 Balance 240 597.844 Intake: Intake, IV Titration 357.844 Amount Heparin Sod,Pork in 0.45% 357.844 NaCl 25,000 unit In 0.45 % NaCl 1 500ml.bag @ 12 UNITS/KG/HR 19.59 mls/hr IV .Q24H [id number] Rx#: [id number] Oral 240 240 Other: # Voids 1 1 Weight 81.9 kg Currently on exam she is awake alert oriented comfortable. HEENT exam no JVP neck is supple no facial asymmetry Lungs are clear to auscultation percussion good air entry bilaterally Heart sounds are unremarkable for any murmur rub gallop Abdomen soft nontender nonobese Extremity exam was no edema Neurologically awake alert oriented but generalized weakness. Results - Lab Results Most recent lab results Calcium 9.8 mg/dL (8.4-10.2) 07/22/17 06:25 Phosphorus 7.2 mg/dL (2.5-4.5) H 07/21/17 12:01 Magnesium 2.1 mg/dL (1.6-2.3) 07/21/17 12:01 07/22/17 06:25 07/22/17 06:25 Assessment and Plan Assessment: Impression. 1. ESRD on dialysis Sunday with chronic hypotensive episodes. 2. Admitted with syncope 20 minutes with low blood pressure. Slightly high troponin at 2.2 there is a possibility of CT 3. Anemia of chronic disease and ESRD with hemoglobin 10.9 at target. 4. No evidence of any bacteremia or sepsis. Her axis on the right upper on this clean. 5. History of atherosclerotic heart disease with coronary artery bypass graft and stent and CT. 6. Diabetes mellitus with hypotension likely neuropathy 7. Hypotension secondary to cardiomyopathy ejection fraction is 25-30% on echo dated 05/29/2017. Recommendation. 1. Will dialyze her on schedule tomorrow Sunday. We will take off 1-1/2 L. 2. Consult cardiology regarding her elevated troponin. 3. Maintain her Epogen/florencia 4. Maintain her binders 5. Maintain Midrin. Patient was consultation and continue to follow with you.
[2017-07-22] MEDS ORDERED: DARBEPOETIN ALFA 40 MCG/0.4 ML SYRINGE SQ SCH (10:30)
--- NOTE | 2017-07-22 11:14 | P.CRDCN ---
History of Present Illness Consult date: 07/22/17 Requesting physician: Kyle Campos Consult reason: sycope Chief complaint: Syncope History of present illness: This is a 62-year-old female who follows regularly with Dr. Rothman in the office. She has known history of end-stage renal disease on hemodialysis, diabetes, hypertension, hyperlipidemia, coronary artery disease with prior bypass surgery and stent placements, patient has had multiple admissions to the hospital with hypotension, most commonly during her dialysis treatments. On this occasion patient presents to the hospital with symptoms of syncope. According to the patient, her blood pressure has been running in the high 80s to low 90s at home for the past few days. She states that she called her yesterday morning to help her get ready for dialysis, as is the last thing she recalls. According to the , he had her stand up at bedside, the next thing he knew she was falling down, he helped her to the ground and was unable to wake her. Duration of time she was down is unknown. She did lose bowel and bladder function while she was out. On EMS arrival, patient was coming to, but was quite confused. EKG on arrival here showed a normal sinus rhythm with occasional PVCs. Chest x-ray reveals small posterior left pleural effusion. CAT scan of the spine was performed which revealed mild degenerative changes. CAT scan of the brain revealed atrophy with. Ventricular white matter ischemic type changes. Pelvic x-ray did not reveal any acute abnormality. Blood pressure on arrival here 95/57, heart rate in the 80s. Documented blood pressure on EMS arrival 136/106 with a heart rate in the 80s. 86% on room air. White blood cell count is normal, hemoglobin 10.9, platelet count 159, sodium 140, potassium 4.8, BUN 29, creatinine 4.9. On admission the BUN was 51 and creatinine 7.6, patient did undergo dialysis last evening. Troponins 1.9, 2.0, 2.2. BNP level 69,400. At the time of my examination this morning, patient denies any dizziness or lightheadedness, Past Medical History Past Medical History: Coronary Artery Disease (CAD), Chest Pain / Angina, Diabetes Mellitus, Hyperlipidemia, Hypertension, Myocardial Infarction (CT), Renal Disease, Thyroid Disorder Additional Past Medical History / Comment(s): MIs, IDDM type II, GOUT R foot, diabetic neuropathy bilateral feet and now "all over", chronic ANEMIA, MITRAL and TRICUSID REGURGITATION, esrd gets hemodialysis [id number]., UTIs, bronchitis, hypoparathyroid, wears O2 at 2L/NC during dialysis only-has had bradycardia and hypotension during dialysis, hemorrhoids-have caused anemia in past, hyperkalemia Last Myocardial Infarction Date:: 04/01/17 History of Any Multi-Drug Resistant Organisms: None Reported Past Surgical History: Coronary Bypass/CABG, Heart Catheterization, Heart Catheterization With Stent Additional Past Surgical History / Comment(s): Cardiac caths-tx medially/pt recently had cardiac cath while in [place] 04/2017, PCI/STENTS, 2014-3 VESSEL CABG, AV fistula R upper arm, colonoscopy-normal, bilateral cataract removal with lens implants, bilateral eye laser sx to remove fluid. Past Anesthesia/Blood Transfusion Reactions: Previous Problems w/ Anesthesia Additional Past Anesthesia/Blood Transfusion Reaction / Comment(s): POST OP DILERIUM/AGITATION/PSYCHOSIS-RESOLVED. Pt states she had a problem with hypotension last time she received versed. Date of Last Stent Placement:: 04/03/17 Past Psychological History: Depression Additional Psychological History / Comment(s): Pt lives with her spouse in a 2 story home that has 2 porch steps. 1 pet cat. pt has a cane,walker,w/c,shower chair/bsc if needed and a nebulizer. Spouse manages her medications. They have been 39 yrs. Smoking Status: Never smoker Past Alcohol Use History: None Reported Past Drug Use History: None Reported - Past Family History Mother Family Medical History: Diabetes Mellitus, Myocardial Infarction (CT), Thyroid Disorder Additional Family Medical History / Comment(s): CABG, gout, hypothyroid. Mother is 80yrs old. Sister(s) Family Medical History: Diabetes Mellitus, Thyroid Disorder Father Family Medical History: Diabetes Mellitus, Myocardial Infarction ([place]) Additional Family Medical History / Comment(s): Father at the age of 67yrs of a [place] Medications and Allergies Home Medications Medication Instructions Recorded Confirmed Type Allopurinol [Zyloprim] 100 mg PO DAILY 11/15/14 07/21/17 History Gabapentin [Neurontin] 100 mg PO BID 11/15/14 07/21/17 History Omeprazole [PriLOSEC] 20 mg PO DAILY 01/31/15 07/21/17 History Insulin Glargine [Lantus] 35 unit SQ HS 03/03/15 07/21/17 History Sertraline [Zoloft] 50 mg PO HS 03/03/15 07/21/17 History Cinacalcet HCl [Sensipar] 30 mg PO HS 05/06/16 07/21/17 History Insulin Aspart [NovoLOG See Protocol SQ AC-TID 05/06/16 07/21/17 History (formulary)] Montelukast [Singulair] 10 mg PO HS #30 tab 06/30/16 07/21/17 Rx Atorvastatin [Lipitor] 40 mg PO HS 03/19/17 07/21/17 History Clopidogrel [Plavix] 75 mg PO HS #30 tab 04/05/17 07/21/17 Rx Nitroglycerin Sl Tabs [Nitrostat] 0.4 mg SUBLINGUAL Q5M PRN #25 tab 05/31/1708/05 Rx Aspirin [Adult Low Dose Aspirin EC] 81 mg PO HS 06/18/17 07/21/17 History Calcium Acetate [PhosLo] 2,001 mg PO AC-TID 06/18/17 07/21/17 History ALPRAZolam [Xanax] 0.25 mg PO HS 07/21/17 07/21/17 History Carvedilol [Coreg] 3.125 mg PO BID PRN 07/21/17 07/21/17 History Midodrine HCl [ProAmatine] 10 mg PO BID 07/21/17 07/21/17 History Pantoprazole [Protonix] 40 mg PO HS 07/21/17 07/21/17 History Allergies Allergy/AdvReac Type Severity Reaction Status Date / Time adhesive Allergy Rash/Hives Verified 07/21/17 12:28 cephalexin monohydrate Allergy Rash/Hives Verified 07/21/17 12:28 [From Keflex] hydromorphone HCl Allergy Hallucinati Verified 07/21/17 12:28 [From Dilaudid] ons iodine Allergy Rash/Hives Verified 07/21/17 12:28 Penicillins Allergy Unknown Verified 07/21/17 12:28 Childhood povidone-iodine Allergy Unknown Verified 07/21/17 12:28 [From Betadine] shellfish derived [Shrimp] Allergy Rash/Hives Verified 07/21/17 12:28 soap [From Betadine] Allergy Unknown Verified 07/21/17 12:28 codeine AdvReac Confusion Verified 07/21/17 12:28 fentanyl AdvReac Unknown Verified 07/21/17 12:28 hydrocodone bitartrate AdvReac Itching Verified 07/21/17 12:28 [From Vicodin] midazolam [From Versed] AdvReac Unknown Verified 07/21/17 12:28 morphine AdvReac Hallucinati Verified 07/21/17 12:28 ons tramadol AdvReac Itching Verified 07/21/17 12:28 artifical sweetener AdvReac Unknown Uncoded 07/21/17 10:13 Physical Exam Vitals: Vital Signs Temp Pulse Pulse Resp BP BP Pulse Ox 07/22/17 08:00 97.4 F L 85 18 96/59 100 07/22/17 04:00 97.3 F L 76 19 91/44 100 07/22/17 00:00 97.9 F 77 20 78/43 98 07/21/17 20:00 97.9 F 77 18 79/46 100 07/21/17 17:35 89/54 07/21/17 16:00 41 L 16 07/21/17 14:35 97.8 F 82 14 97/55 99 07/21/17 14:13 71 16 88/59 95 07/21/17 13:46 97.7 F 41 L 14 86/42 100 07/21/17 12:40 75 16 89/54 96 07/21/17 11:29 82 16 95/47 97 Intake and Output 07/21/17 07/22/17 07/22/17 22:59 06:59 14:59 Intake Total 240 597.844 Balance 240 597.844 Intake: Intake, IV Titration 357.844 Amount Heparin Sod,Pork in 0.45% 357.844 NaCl 25,000 unit In 0.45 % NaCl 1 500ml.bag @ 12 UNITS/KG/HR 19.59 mls/hr IV .Q24H [facility] Rx#: [id number] Oral 240 240 Other: # Voids 1 1 Weight 81.9 kg PHYSICAL EXAMINATION: HEENT: Head is atraumatic, normocephalic. Pupils equal, round. Neck is supple. There is no elevated jugular venous pressure. HEART EXAMINATION: Heart S1 S2 1 systolic ejection murmur is heard CHEST EXAMINATION: Lungs are clear to auscultation and precussion. No chest wall tenderness is noted on palpation or with deep breathing. ABDOMEN: Soft, nontender. Bowel sounds are heard. No organomegaly noted. EXTREMITIES: 2+ peripheral pulses with no evidence of peripheral edema and no calf tenderness noted. NEUROLOGIC patient is awake, alert and oriented -3. . Results 07/22/17 06:25 07/22/17 06:25 Cardiac Enzymes 07/21/17 07/21/17 07/21/17 Range/Units 12:01 12:01 18:46 AST 64 H (14-36) U/L CK-MB (CK-2) 4.0 H* 2.9 H* (0.0-2.4) ng/mL Troponin I 1.940 H* 2.020 H* (0.000-0.034) ng/mL 07/21/17 Range/Units 23:16 AST (14-36) U/L CK-MB (CK-2) 2.7 H* (0.0-2.4) ng/mL Troponin I 2.230 H* (0.000-0.034) ng/mL Coagulation 07/21/17 07/21/17 07/22/17 Range/Units 10:59 18:46 06:25 PT 10.6 (9.0-12.0) sec APTT 21.8 L 51.8 H 30.1 H (22.0-30.0) sec Lipids 07/22/17 Range/Units 06:25 Triglycerides 92 (<150) mg/dL Cholesterol 106 (<200) mg/dL HDL Cholesterol 56 (40-60) mg/dL CBC 07/21/17 07/22/17 Range/Units 10:59 06:25 WBC 8.6 8.5 (3.8-10.6) k/uL RBC 3.96 3.69 L (3.80-5.40) m/uL Hgb 11.8 10.9 L (11.4-16.0) gm/dL Hct 39.2 37.2 (34.0-46.0) % Plt Count 201 159 (150-450) k/uL Comprehensive Metabolic Panel 07/21/17 07/22/17 Range/Units 12:01 06:25 Sodium 139 140 (137-145) mmol/L Potassium 5.8 H 4.8 (3.5-5.1) mmol/L Chloride 98 102 (98-107) mmol/L Carbon Dioxide 21 L 21 L (22-30) mmol/L BUN 51 H 29 H (7-17) mg/dL Creatinine 7.62 H* 4.93 H (0.52-1.04) mg/dL Glucose 188 H 103 H (74-99) mg/dL Calcium 10.4 H 9.8 (8.4-10.2) mg/dL AST 64 H (14-36) U/L ALT 48 (9-52) U/L Alkaline Phosphatase 182 H (38-126) U/L Total Protein 6.3 (6.3-8.2) g/dL Albumin 4.1 (3.5-5.0) g/dL Current Medications Generic Name Dose Route Start Last Admin Trade Name Freq PRN Reason Stop Dose Admin Acetaminophen 650 mg 07/21/17 17:00 07/22/17 04:34 Tylenol Tab PO 650 mg Q6HR PRN Administration Fever and/ or Mild Pain Allopurinol 100 mg 07/22/17 09:00 07/22/17 08:43 Zyloprim PO 100 mg DAILY [facility] Administration Alprazolam 0.25 mg 07/21/17 21:00 07/22/17 00:02 Xanax PO 0.25 mg HS [facility] Administration Aspirin 81 mg 07/21/17 21:00 07/22/17 00:02 Aspirin PO 81 mg HS [facility] Administration Atorvastatin Calcium 40 mg 07/21/17 21:00 07/22/17 00:02 Lipitor PO 40 mg HS [facility] Administration Calcium Acetate 2,001 mg 07/21/17 17:30 07/22/17 06:31 Phoslo PO 2,001 mg AC-TID [facility] Administration Carvedilol 3.125 mg 07/21/17 16:51 Coreg PO BID PRN Blood Pressure - High Cinacalcet 30 mg 07/21/17 21:00 07/22/17 00:02 Sensipar PO 30 mg HS [facility] Administration Clopidogrel Bisulfate 75 mg 07/21/17 21:00 07/22/17 00:03 Plavix PO 75 mg HS [facility] Administration Darbepoetin Adam 40 mcg 07/22/17 10:30 Aranesp SQ Q7D [facility] Gabapentin 100 mg 07/21/17 21:00 07/22/17 08:43 Neurontin PO 100 mg BID [facility] Administration Heparin Sodium (Porcine) 0 unit 07/21/17 13:23 Heparin IV Q6HR PRN Low PTT Protocol Heparin Sodium/Sodium Chloride 500 mls @ 19.59 mls/hr 07/21/17 13:30 08:42 25,000 unit/ Sodium Chloride IV 15 units/kg/hr .Q24H [facility] 24.49 mls/hr Protocol Titration 12 UNITS/KG/HR Insulin Aspart 0 unit 07/21/17 21:00 07/22/17 06:30 Novolog SQ Not Given ACHS [facility] Protocol Insulin Detemir 35 unit 07/21/17 21:00 07/22/17 00:07 Levemir SQ Not Given HS [facility] Midodrine 10 mg 07/22/17 12:30 Proamatine PO AC-TID [facility] Montelukast Sodium 10 mg 07/21/17 21:00 07/22/17 00:03 Singulair PO 10 mg HS [facility] Administration Nitroglycerin 0.4 mg 07/21/17 16:51 Nitrostat SUBLINGUAL Q5M PRN Chest Pain Pantoprazole Sodium 40 mg 07/21/17 21:00 07/22/17 00:03 Protonix PO 40 mg HS [facility] Administration Sertraline HCl 50 mg 07/21/17 21:00 07/22/17 00:03 Zoloft PO 50 mg HS [facility] Administration Intake and Output 07/21/17 07/22/17 07/22/17 22:59 06:59 14:59 Intake Total 240 597.844 Balance 240 597.844 Intake: Intake, IV Titration 357.844 Amount Heparin Sod,Pork in 0.45% 357.844 NaCl 25,000 unit In 0.45 % NaCl 1 500ml.bag @ 12 UNITS/KG/HR 19.59 mls/hr IV .Q24H [facility] Rx#: [id number] Oral 240 240 Other: # Voids 1 1 Weight 81.9 kg 07/22/17 06:25 07/22/17 06:25 EKG Interpretations (text) EKG shows normal sinus rhythm with occasional PVCs. ST depression in the lateral leads. Assessment and Plan Plan: Assessment and plan #1 syncope, blood pressure on EMS arrival 136/106. Documented blood pressures at home prior to event were running in the 80s to 90s systolic. EKG shows a normal sinus rhythm with occasional PVCs, ST depression noted in the lateral leads. Patient also lost bowel and bladder function, neurology consulted. #2 end-stage renal disease on hemodialysis #3 coronary artery disease with prior bypass surgery and multiple stent placements #4 hypertension history #5 hyperlipidemia #6 diabetes #7 multiple hospital admissions for hypotension #8 abnormal troponins, likely secondary to abnormal renal function. Patient denies having any chest discomfort. Persistence in abnormal troponins noted on prior admissions. Plan We will obtain orthostatic heart rate and blood pressure every shift. Patient is on midodrine 10 mg by mouth 3 times a day. We will continue to monitor for any tachycardia or bradycardia arrhythmias as well. Neuro evaluation. DNP note has been reviewed, I agree with a documented findings and plan of care. Patient was seen and examined.
[2017-07-22 11:37] LABS: Glucose,Whole Blood 141 mg/dL (75-99)
[2017-07-22] MEDS: ONDANSETRON 4 MG/2 ML VIAL IVP PRN (11:57)
--- NOTE | 2017-07-22 13:42 | P.HPIM ---
History of Present Illness H&P Date: 07/22/17 This is a 62-year-old female with a very complex past medical history noted below significant for end-stage renal disease on hemodialysis, history of coronary artery disease with prior CABG, and chronic hypotension maintained on midodrine who presented to the hospital with a syncopal episode. This happened yesterday when patient was trying to get ready for dialysis. Apparently she lost consciousness without head trauma. There was reported loss of bowel and bladder control. Patient was brought to the emergency room. Computed tomography scan of the brain was unremarkable. Patient said that her blood pressure usually runs low in the 90s and 80s. She has been taking midodrine as directed. She was evaluated in the emergency room and her blood pressure was 95 /57. She was admitted to the hospital further evaluation. Troponin was significantly elevated which appears to be chronic. Patient denies any chest pain or shortness of breath. She is dizzy when she get up and walk around. Review of Systems Review of system: 14 points review of systems were obtained and were negative except to what were mentioned in the HPI. Past Medical History Past Medical History: Coronary Artery Disease (CAD), Chest Pain / Angina, Diabetes Mellitus, Hyperlipidemia, Hypertension, Myocardial Infarction ([place]), Renal Disease, Thyroid Disorder Additional Past Medical History / Comment(s): MIs, IDDM type II, GOUT R foot, diabetic neuropathy bilateral feet and now "all over", chronic ANEMIA, MITRAL and TRICUSID REGURGITATION, esrd gets hemodialysis [id number]., UTIs, bronchitis, hypoparathyroid, wears O2 at 2L/NC during dialysis only-has had bradycardia and hypotension during dialysis, hemorrhoids-have caused anemia in past, hyperkalemia Last Myocardial Infarction Date:: 04/01/17 History of Any Multi-Drug Resistant Organisms: None Reported Past Surgical History: Coronary Bypass/CABG, Heart Catheterization, Heart Catheterization With Stent Additional Past Surgical History / Comment(s): Cardiac caths-tx medially/pt recently had cardiac cath while in [place] 04/2017, PCI/STENTS, 2014-3 VESSEL CABG, AV fistula R upper arm, colonoscopy-normal, bilateral cataract removal with lens implants, bilateral eye laser sx to remove fluid. Past Anesthesia/Blood Transfusion Reactions: Previous Problems w/ Anesthesia Additional Past Anesthesia/Blood Transfusion Reaction / Comment(s): POST OP DILERIUM/AGITATION/PSYCHOSIS-RESOLVED. Pt states she had a problem with hypotension last time she received versed. Date of Last Stent Placement:: 04/03/17 Past Psychological History: Depression Additional Psychological History / Comment(s): Pt lives with her spouse in a 2 story home that has 2 porch steps. 1 pet cat. pt has a cane,walker,w/c,shower chair/bsc if needed and a nebulizer. Spouse manages her medications. They have been 39 yrs. Smoking Status: Never smoker Past Alcohol Use History: None Reported Past Drug Use History: None Reported - Past Family History Mother Family Medical History: Diabetes Mellitus, Myocardial Infarction ([place]), Thyroid Disorder Additional Family Medical History / Comment(s): CABG, gout, hypothyroid. Mother is 80yrs old. Sister(s) Family Medical History: Diabetes Mellitus, Thyroid Disorder Father Family Medical History: Diabetes Mellitus, Myocardial Infarction ([place]) Additional Family Medical History / Comment(s): Father at the age of 67yrs of a [place] Medications and Allergies Home Medications Medication Instructions Recorded Confirmed Type Allopurinol [Zyloprim] 100 mg PO DAILY 11/15/14 07/21/17 History Gabapentin [Neurontin] 100 mg PO BID 11/15/14 07/21/17 History Omeprazole [PriLOSEC] 20 mg PO DAILY 01/31/15 07/21/17 History Insulin Glargine [Lantus] 35 unit SQ HS 03/03/15 07/21/17 History Sertraline [Zoloft] 50 mg PO HS 03/03/15 07/21/17 History Cinacalcet HCl [Sensipar] 30 mg PO HS 05/06/16 07/21/17 History Insulin Aspart [NovoLOG See Protocol SQ AC-TID 05/06/16 07/21/17 History (formulary)] Montelukast [Singulair] 10 mg PO HS #30 tab 06/30/16 07/21/17 Rx Atorvastatin [Lipitor] 40 mg PO HS 03/19/17 07/21/17 History Clopidogrel [Plavix] 75 mg PO HS #30 tab 04/05/17 07/21/17 Rx Nitroglycerin Sl Tabs [Nitrostat] 0.4 mg SUBLINGUAL Q5M PRN #25 tab 05/31/1708/05 Rx Aspirin [Adult Low Dose Aspirin EC] 81 mg PO HS 06/18/17 07/21/17 History Calcium Acetate [PhosLo] 2,001 mg PO AC-TID 06/18/17 07/21/17 History ALPRAZolam [Xanax] 0.25 mg PO HS 07/21/17 07/21/17 History Carvedilol [Coreg] 3.125 mg PO BID PRN 07/21/17 07/21/17 History Midodrine HCl [ProAmatine] 10 mg PO BID 07/21/17 07/21/17 History Pantoprazole [Protonix] 40 mg PO HS 07/21/17 07/21/17 History Allergies Allergy/AdvReac Type Severity Reaction Status Date / Time adhesive Allergy Rash/Hives Verified 07/21/17 12:28 cephalexin monohydrate Allergy Rash/Hives Verified 07/21/17 12:28 [From Keflex] hydromorphone HCl Allergy Hallucinati Verified 07/21/17 12:28 [From Dilaudid] ons iodine Allergy Rash/Hives Verified 07/21/17 12:28 Penicillins Allergy Unknown Verified 07/21/17 12:28 Childhood povidone-iodine Allergy Unknown Verified 07/21/17 12:28 [From Betadine] shellfish derived [Shrimp] Allergy Rash/Hives Verified 07/21/17 12:28 soap [From Betadine] Allergy Unknown Verified 07/21/17 12:28 codeine AdvReac Confusion Verified 07/21/17 12:28 fentanyl AdvReac Unknown Verified 07/21/17 12:28 hydrocodone bitartrate AdvReac Itching Verified 07/21/17 12:28 [From Vicodin] midazolam [From Versed] AdvReac Unknown Verified 07/21/17 12:28 morphine AdvReac Hallucinati Verified 07/21/17 12:28 ons tramadol AdvReac Itching Verified 07/21/17 12:28 artifical sweetener AdvReac Unknown Uncoded 07/21/17 10:13 Physical Exam Vitals: Vital Signs Temp Pulse Pulse Resp BP BP Pulse Ox 07/22/17 11:54 85 07/22/17 11:24 97.5 F L 85 16 96/55 98 07/22/17 08:00 97.4 F L 85 18 96/59 100 03/04/18 04:00 97.3 F L 76 19 91/44 100 07/22/17 00:00 97.9 F 77 20 78/43 98 07/21/17 20:00 97.9 F 77 18 79/46 100 07/21/17 17:35 89/54 07/21/17 16:00 41 L 16 07/21/17 14:35 97.8 F 82 14 97/55 99 07/21/17 14:13 71 16 88/59 95 07/21/17 13:46 97.7 F 41 L 14 86/42 100 Intake and Output 07/21/17 07/22/17 07/22/17 22:59 06:59 14:59 Intake Total 240 597.844 Balance 240 597.844 Intake: Intake, IV Titration 357.844 Amount Heparin Sod,Pork in 0.45% 357.844 NaCl 25,000 unit In 0.45 % NaCl 1 500ml.bag @ 12 UNITS/KG/HR 19.59 mls/hr IV .Q24H [facility] Rx#: [id number] Oral 240 240 Other: # Voids 1 1 2 Weight 81.9 kg General: The patient is awake and alert, in no distress Eye: there is normal conjunctiva bilaterally. Neck: The neck is supple, there is no JVD. Cardiovascular: Normal S1-S2, no S3-S4, no murmurs. Respiratory: Lungs clear to auscultation bilaterally Gastrointestinal: Abdomen is soft, nontender Musculoskeletal: There is no pedal edema. Neurological:. Speech is normal. Skin: Skin is warm and dry Results CBC & Chem 7: 07/22/17 06:25 07/22/17 06:25 Labs: Abnormal Lab Results - Last 24 Hours (Table) 07/21/17 07/21/17 07/21/17 Range/Units 16:55 18:46 18:46 RBC (3.80-5.40) m/uL Hgb (11.4-16.0) gm/dL MCV (80.0-100.0) fL MCHC (31.0-37.0) g/dL RDW (11.5-15.5) % APTT 51.8 H (22.0-30.0) sec Carbon Dioxide (22-30) mmol/L BUN (7-17) mg/dL Creatinine (0.52-1.04) mg/dL Glucose (74-99) mg/dL POC Glucose (mg/dL) 146 H (75-99) mg/dL CK-MB (CK-2) 2.9 H* (0.0-2.4) ng/mL Troponin I 2.020 H* (0.000-0.034) ng/mL 07/21/17 07/21/17 07/22/17 Range/Units 21:00 23:16 06:12 RBC (3.80-5.40) m/uL Hgb (11.4-16.0) gm/dL MCV (80.0-100.0) fL MCHC (31.0-37.0) g/dL RDW (11.5-15.5) % APTT (22.0-30.0) sec Carbon Dioxide (22-30) mmol/L BUN (7-17) mg/dL Creatinine (0.52-1.04) mg/dL Glucose (74-99) mg/dL POC Glucose (mg/dL) 129 H 105 H (75-99) mg/dL CK-MB (CK-2) 2.7 H* (0.0-2.4) ng/mL Troponin I 2.230 H* (0.000-0.034) ng/mL 07/22/17 07/22/17 07/22/17 Range/Units 06:25 06:25 06:25 RBC 3.69 L (3.80-5.40) m/uL Hgb 10.9 L (11.4-16.0) gm/dL MCV 101.1 H (80.0-100.0) fL MCHC 29.3 L (31.0-37.0) g/dL RDW 16.7 H (11.5-15.5) % APTT 30.1 H (22.0-30.0) sec Carbon Dioxide 21 L (22-30) mmol/L BUN 29 H (7-17) mg/dL Creatinine 4.93 H (0.52-1.04) mg/dL Glucose 103 H (74-99) mg/dL POC Glucose (mg/dL) (75-99) mg/dL CK-MB (CK-2) (0.0-2.4) ng/mL Troponin I (0.000-0.034) ng/mL 07/22/17 Range/Units 11:35 RBC (3.80-5.40) m/uL Hgb (11.4-16.0) gm/dL MCV (80.0-100.0) fL MCHC (31.0-37.0) g/dL RDW (11.5-15.5) % APTT (22.0-30.0) sec Carbon Dioxide (22-30) mmol/L BUN (7-17) mg/dL Creatinine (0.52-1.04) mg/dL Glucose (74-99) mg/dL POC Glucose (mg/dL) 141 H (75-99) mg/dL CK-MB (CK-2) (0.0-2.4) ng/mL Troponin I (0.000-0.034) ng/mL Thrombosis Risk Factor Assmnt - Choose All That Apply Any of the Below Risk Factors Present?: Yes Each Risk Factor Represents 2 Points: Age 61-74 years Thrombosis Risk Factor Assessment Total Risk Factor Score: 2 Thrombosis Risk Factor Assessment Level: Low Risk Assessment and Plan Assessment: 1. Syncope, most likely attributed to hypotension. Patient is on midodrine 3 times a day. I will check cortisol level in the morning. Computed tomography scan of the brain was unremarkable. We will repeat orthostatic blood pressure in the morning. Encouraged oral hydration. Discuss with nephrology fluid removal with dialysis. 2. History of coronary artery disease with prior CABG and multiple stent placement 3. End-stage renal disease on hemodialysis, nephrology following 4. Chronic hypotension maintained on midodrine. I will check cortisol level. May consider Florinef in addition to her regimen 5. Type 2 diabetes 6. Mixed hyperlipidemia 7. Elevated troponin, most likely non-thrombotic troponin leak. Patient denies chest pain. EKG showed no acute findings. She was seen by cardiology.
--- NOTE | 2017-07-22 15:57 | P.CNNES ---
History of Present Illness Consult date: 07/22/17 Reason for Consult: Patient with syncope vs. seizure and collapse. History of Present Illness: This patient is a 62-year-old right-handed white female was in her usual state of health yesterday at home. Apparently she has a long-standing history of end- stage renal disease and is on hemodialysis. She had missed her regular dialysis and her was helping her get ready yesterday to go for dialysis. Currently he was helping her stand and during this time she collapsed to the floor. She was unresponsive and he tried to revive her very quickly but she remained unresponsive for at least 2-4 minutes. She did lose control of her bowel. states he has never seen her collapsed like this. Just prior to this event the patient was noted to have low blood pressure readings. She has been dealing with hypotension and is being followed closely in the nephrology and cardiology clinics. She states she has been taking Midodrine for treatment of low blood pressure for the past 1 year. Over the past 1 week her blood pressure readings at taken at home have revealed a systolic to be in the 80s and 90s. The immediately called for EMS. She was transported by EMS to the emergency room where she was evaluated in the ER by Dr. Dodge. She was sent for a computed tomography scan of the brain and cervical spine. CAT scan of the brain revealed atrophy with periventricular white matter ischemic changes. No evidence of acute stroke. Patient also underwent computed tomography scan of the cervical spine. This revealed mild degenerative changes with no acute osseous abnormality evident. Patient was subsequently admitted to the hospital. She has no previous history of seizures. She has noted episodes occasionally for the past year on and off of increasing head tremors. This is been ongoing over the past year. She does have a rather extensive cardiovascular history. She states she has had stents placed into the heart as well as several myocardial infarctions in the past. She currently has a heart monitor in place for the past 1 month for monitoring for cardiac arrhythmia. She is now been admitted and neurology has been consulted for further evaluation and recommendations. Review of Systems Constitutional: Denies chills, Denies fever Eyes: denies blurred vision, denies pain Ears, nose, mouth and throat: Denies headache, Denies sore throat Cardiovascular: Denies chest pain, Denies shortness of breath Respiratory: Denies cough Gastrointestinal: Denies abdominal pain, Denies diarrhea, Denies nausea, Denies vomiting Genitourinary: Denies dysuria, Denies hematuria Musculoskeletal: Denies myalgias Integumentary: Denies pruritus, Denies rash Neurological: Reports convulsions, Reports memory loss, Reports seizures, Reports tremors, Denies numbness, Denies weakness Psychiatric: Denies anxiety, Denies depression Endocrine: Denies fatigue, Denies weight change Past Medical History Past Medical History: Coronary Artery Disease (CAD), Chest Pain / Angina, Diabetes Mellitus, Hyperlipidemia, Hypertension, Myocardial Infarction (ID), Renal Disease, Thyroid Disorder Additional Past Medical History / Comment(s): MIs, IDDM type II, GOUT R foot, diabetic neuropathy bilateral feet and now "all over", chronic ANEMIA, MITRAL and TRICUSID REGURGITATION, esrd gets hemodialysis [id number]., UTIs, bronchitis, hypoparathyroid, wears O2 at 2L/NC during dialysis only-has had bradycardia and hypotension during dialysis, hemorrhoids-have caused anemia in past, hyperkalemia Last Myocardial Infarction Date:: 04/01/17 History of Any Multi-Drug Resistant Organisms: None Reported Past Surgical History: Coronary Bypass/CABG, Heart Catheterization, Heart Catheterization With Stent Additional Past Surgical History / Comment(s): Cardiac caths-tx medially/pt recently had cardiac cath while in [place] 04/2017, PCI/STENTS, 2014-3 VESSEL CABG, AV fistula R upper arm, colonoscopy-normal, bilateral cataract removal with lens implants, bilateral eye laser sx to remove fluid. Past Anesthesia/Blood Transfusion Reactions: Previous Problems w/ Anesthesia Additional Past Anesthesia/Blood Transfusion Reaction / Comment(s): POST OP DILERIUM/AGITATION/PSYCHOSIS-RESOLVED. Pt states she had a problem with hypotension last time she received versed. Date of Last Stent Placement:: 04/03/17 Past Psychological History: Depression Additional Psychological History / Comment(s): Pt lives with her spouse in a 2 story home that has 2 porch steps. 1 pet cat. pt has a cane,walker,w/c,shower chair/bsc if needed and a nebulizer. Spouse manages her medications. They have been 39 yrs. Smoking Status: Never smoker Past Alcohol Use History: None Reported Past Drug Use History: None Reported - Past Family History Mother Family Medical History: Diabetes Mellitus, Myocardial Infarction (ID), Thyroid Disorder Additional Family Medical History / Comment(s): CABG, gout, hypothyroid. Mother is 80yrs old. Sister(s) Family Medical History: Diabetes Mellitus, Thyroid Disorder Father Family Medical History: Diabetes Mellitus, Myocardial Infarction (ID) Additional Family Medical History / Comment(s): Father at the age of 67yrs of a ID Medications and Allergies Home Medications Medication Instructions Recorded Confirmed Type Allopurinol [Zyloprim] 100 mg PO DAILY 11/15/14 07/21/17 History Gabapentin [Neurontin] 100 mg PO BID 11/15/14 07/21/17 History Omeprazole [PriLOSEC] 20 mg PO DAILY 01/31/15 07/21/17 History Insulin Glargine [Lantus] 35 unit SQ HS 03/03/15 07/21/17 History Sertraline [Zoloft] 50 mg PO HS 03/03/15 07/21/17 History Cinacalcet HCl [Sensipar] 30 mg PO HS 05/06/16 07/21/17 History Insulin Aspart [NovoLOG See Protocol SQ AC-TID 05/06/16 07/21/17 History (formulary)] Montelukast [Singulair] 10 mg PO HS #30 tab 06/30/16 07/21/17 Rx Atorvastatin [Lipitor] 40 mg PO HS 03/19/17 07/21/17 History Clopidogrel [Plavix] 75 mg PO HS #30 tab 04/05/17 07/21/17 Rx Nitroglycerin Sl Tabs [Nitrostat] 0.4 mg SUBLINGUAL Q5M PRN #25 tab 05/31/1708/05 Rx Aspirin [Adult Low Dose Aspirin EC] 81 mg PO HS 06/18/17 07/21/17 History Calcium Acetate [PhosLo] 2,001 mg PO AC-TID 06/18/17 07/21/17 History ALPRAZolam [Xanax] 0.25 mg PO HS 07/21/17 07/21/17 History Carvedilol [Coreg] 3.125 mg PO BID PRN 07/21/17 07/21/17 History Midodrine HCl [ProAmatine] 10 mg PO BID 07/21/17 07/21/17 History Pantoprazole [Protonix] 40 mg PO HS 07/21/17 07/21/17 History Allergies Allergy/AdvReac Type Severity Reaction Status Date / Time adhesive Allergy Rash/Hives Verified 07/21/17 12:28 cephalexin monohydrate Allergy Rash/Hives Verified 07/21/17 12:28 [From Keflex] hydromorphone HCl Allergy Hallucinati Verified 07/21/17 12:28 [From Dilaudid] ons iodine Allergy Rash/Hives Verified 07/21/17 12:28 Penicillins Allergy Unknown Verified 07/21/17 12:28 Childhood povidone-iodine Allergy Unknown Verified 07/21/17 12:28 [From Betadine] shellfish derived [Shrimp] Allergy Rash/Hives Verified 07/21/17 12:28 soap [From Betadine] Allergy Unknown Verified 07/21/17 12:28 codeine AdvReac Confusion Verified 07/21/17 12:28 fentanyl AdvReac Unknown Verified 07/21/17 12:28 hydrocodone bitartrate AdvReac Itching Verified 07/21/17 12:28 [From Vicodin] midazolam [From Versed] AdvReac Unknown Verified 07/21/17 12:28 morphine AdvReac Hallucinati Verified 07/21/17 12:28 ons tramadol AdvReac Itching Verified 07/21/17 12:28 artifical sweetener AdvReac Unknown Uncoded 07/21/17 10:13 Physical Examination - Vital Signs Vital Signs: Vital Signs Temp Pulse Resp BP Pulse Ox 07/22/17 15:30 97.6 F 76 16 101/56 100 07/22/17 11:54 85 07/22/17 11:24 97.5 F L 85 16 96/55 98 07/22/17 08:00 97.4 F L 85 18 96/59 100 07/22/17 04:00 97.3 F L 76 19 91/44 100 07/22/17 00:00 97.9 F 77 20 78/43 98 07/21/17 20:00 97.9 F 77 18 79/46 100 07/21/17 17:35 89/54 07/21/17 16:00 41 L 16 Intake and Output 07/22/17 07/22/17 07/22/17 06:59 14:59 22:59 Intake Total 837.844 Balance 837.844 Intake: Intake, IV Titration 357.844 Amount Heparin Sod,Pork in 0.45% 357.844 NaCl 25,000 unit In 0.45 % NaCl 1 500ml.bag @ 12 UNITS/KG/HR 19.59 mls/hr IV .Q24H MUKUND Rx#: [id number] Oral 480 Other: # Voids 1 2 Weight 81.9 kg - Constitutional General appearance: average body habitus, cooperative - EENT EENT: PERRL, mucous membranes moist - Respiratory Respiratory: lungs clear, normal breath sounds - Cardiovascular Cardiovascular: regular rate, normal S1, normal S2 Extremities: no peripheral edema bilaterally - Gastrointestinal Gastrointestinal: normoactive bowel sounds - Integumentary Integumentary: normal - Neurologic Cranial nerve examination: PERRL, EOMI, V1/V2/V3 grossly intact, face symmetric , tongue midline, intact gag reflex, intact corneal reflex, normal palatal elevation Speech examination: intact Sensorimotor examination: intact Motor examination - right side: 4/5: biceps, triceps, wrist flexion, wrist extension, color laboratory technician, hip flexors, knee extensors, dorsiflexion, toe extension (EHL) , plantarflexion Motor examination - left side: 4/5: biceps, triceps, wrist flexion, wrist extension, color laboratory technician, hip flexors, knee extensors, dorsiflexion, toe extension (EHL) , plantarflexion Detailed sensory examination: intact Reflex and gait examination: intact Reflexes: 1+: ankle, bicep, knee, tricep - Musculoskeletal Musculoskeletal: no pain - Psychiatric Psychiatric: mood/affect appropriate, cooperative Results - Laboratory Findings CBC and BMP: 07/22/17 06:25 07/22/17 06:25 Abnormal Lab Findings: Abnormal Labs 07/21/17 07/21/17 07/21/17 10:59 10:59 12:01 RBC Hgb MCV MCHC 30.0 L RDW 16.8 H Lymphocytes # 0.8 L APTT 21.8 L Potassium 5.8 H Carbon Dioxide 21 L BUN 51 H Creatinine 7.62 H* Glucose 188 H POC Glucose (mg/dL) Calcium 10.4 H Phosphorus 7.2 H AST 64 H Alkaline Phosphatase 182 H CK-MB (CK-2) Troponin I 07/21/17 07/21/17 07/21/17 12:01 16:55 18:46 RBC Hgb MCV MCHC RDW Lymphocytes # APTT Potassium Carbon Dioxide BUN Creatinine Glucose POC Glucose (mg/dL) 146 H Calcium Phosphorus AST Alkaline Phosphatase CK-MB (CK-2) 4.0 H* 2.9 H* Troponin I 1.940 H* 2.020 H* 07/21/17 07/21/17 07/21/17 18:46 21:00 23:16 RBC Hgb MCV MCHC RDW Lymphocytes # APTT 51.8 H Potassium Carbon Dioxide BUN Creatinine Glucose POC Glucose (mg/dL) 129 H Calcium Phosphorus AST Alkaline Phosphatase CK-MB (CK-2) 2.7 H* Troponin I 2.230 H* 07/22/17 07/22/17 07/22/17 06:12 06:25 06:25 RBC 3.69 L Hgb 10.9 L MCV 101.1 H MCHC 29.3 L RDW 16.7 H Lymphocytes # APTT Potassium Carbon Dioxide 21 L BUN 29 H Creatinine 4.93 H Glucose 103 H POC Glucose (mg/dL) 105 H Calcium Phosphorus AST Alkaline Phosphatase CK-MB (CK-2) Troponin I 07/22/17 07/22/17 06:25 11:35 RBC Hgb MCV MCHC RDW Lymphocytes # APTT 30.1 H Potassium Carbon Dioxide BUN Creatinine Glucose POC Glucose (mg/dL) 141 H Calcium Phosphorus AST Alkaline Phosphatase CK-MB (CK-2) Troponin I Assessment and Plan (1) Vasovagal syncope Current Visit: Yes Status: Acute Code(s): R55 - SYNCOPE AND COLLAPSE SNOMED Code(s): 938265779 (2) Hypotension Current Visit: Yes Status: Acute Code(s): I95.9 - HYPOTENSION, UNSPECIFIED SNOMED Code(s): 09463861 (3) Non-STEMI (non-ST elevated myocardial infarction) Current Visit: Yes Status: Acute Code(s): I21.4 - NON-ST ELEVATION (NSTEMI) MYOCARDIAL INFARCTION SNOMED Code(s): 767867606 (4) Bradycardia Current Visit: No Status: Acute Code(s): R00.1 - BRADYCARDIA, UNSPECIFIED SNOMED Code(s): 93937739 (5) End stage renal disease on dialysis Current Visit: No Status: Acute Code(s): N18.6 - END STAGE RENAL DISEASE SNOMED Code(s): 299966970 Plan: This patient is a 62-year-old right-handed white female who was admitted to hospital after having acute syncopal episode versus seizure at home. Patient has a history of end-stage renal disease and is on hemodialysis. She close her hemodialysis 3 days a week. Apparently last week she had missed her regular scheduled appointment. was attempting to take her for her hemodialysis yesterday when she collapsed and became unresponsive. She was unresponsive for at least 2-4 minutes. She did not have any active seizure activity with the collapse. She was brought into the emergency room at [facility] for further evaluation. She underwent a computed tomography scan of the brain and cervical spine results which are noted above. Blood pressure remained low on admission with admission in the ER. She has been taking Midodrine on a regular basis for treatment of this condition. Her neurological examination at this time is nonfocal. We recommend that she undergo a routine EEG to rule out seizure disorder. We will await further recommendations from nephrology regarding her ongoing hypotension. Cardiology is also evaluating the patient. We will continue close neurological follow-up with this patient during this admission. Her overall prognosis remains guarded. She is advised of the [employer] driving law which states she should not drive for a period of 6 months following any syncopal episode and/or seizure. Her overall prognosis at this time remains guarded. We will await further recommendations from multiple specialists at her seeing the patient as well. As noted overall prognosis at this time remains guarded. Time with Patient: Greater than 30
[2017-07-22] MEDS: HEPARIN SOD,PORK IN 0.45% NACL 25,000 UNIT in 0.45% NACL 1 500ML.BAG IV SCH (16:28)
[2017-07-22 16:31] LABS: Glucose,Whole Blood 158 mg/dL (75-99)
[2017-07-22 20:06] LABS: Hemoglobin A1C 6.2 % (4.0-6.0)
[2017-07-22 21:14] LABS: Glucose,Whole Blood 199 mg/dL (75-99)
[2017-07-23 06:01] LABS: Anisocytosis Slight; Basophils % (A) 1 %; Eosinophils # (A) 0.2 k/uL (0-0.7); Eosinophils % (A) 2 %; HGB 10.6 gm/dL (11.4-16.0); Hypochromasia Marked; Lymphocytes # (A) 1.6 k/uL (1.0-4.8); Lymphocytes % (A) 20 %; MCH 29.7 pg (25.0-35.0); MCHC 30.1 g/dL (31.0-37.0); MCV 98.5 fL (80.0-100.0); Macrocytosis Slight; Mean Platelet Volume 9.2; Monocytes # (A) 0.5 k/uL (0-1.0); Monocytes % (A) 6 %; Neutrophils # (A) 5.7 k/uL (1.3-7.7); Neutrophils % (A) 70 %; Platelet Count 133 k/uL (150-450); RBC 3.56 m/uL (3.80-5.40); RDW 16.6 % (11.5-15.5); WBC 8.1 k/uL (3.8-10.6)
[2017-07-23 06:04] LABS: Glucose,Whole Blood 103 mg/dL (75-99)
[2017-07-23 06:11] LABS: Albumin 3.6 g/dL (3.5-5.0); Calcium 10.5 mg/dL (8.4-10.2); Phosphorus 5.7 mg/dL (2.5-4.5); Potassium 5.1 mmol/L (3.5-5.1); Total Bilirubin 0.5 mg/dL (0.2-1.3); Total Protein 5.9 g/dL (6.3-8.2)
[2017-07-23] MEDS: INSULIN ASPART 100 UNIT/ML 1 ML 10 ML VIAL SQ SCH ×4 (06:19→21:28)
[2017-07-23] MEDS: MIDODRINE 5 MG TAB PO SCH ×3 (06:36→18:04)
[2017-07-23] MEDS: CALCIUM ACETATE 667 MG CAP PO SCH ×3 (06:36→18:04)
[2017-07-23] MEDS: ACETAMINOPHEN TAB 325 MG TAB PO PRN (08:24)
[2017-07-23] MEDS: ALLOPURINOL 100 MG TAB PO SCH (08:24)
[2017-07-23] MEDS: GABAPENTIN 100 MG CAP PO SCH ×2 (08:24→22:48)
--- NOTE | 2017-07-23 11:09 | P.PN ---
Subjective Progress Note Date: 07/23/17 This is a 62-year-old female with a very complex past medical history noted below significant for end-stage renal disease on hemodialysis, history of coronary artery disease with prior CABG, and chronic hypotension maintained on midodrine who presented to the hospital with a syncopal episode. This happened yesterday when patient was trying to get ready for dialysis. Apparently she lost consciousness without head trauma. There was reported loss of bowel and bladder control. Patient was brought to the emergency room. Computed tomography scan of the brain was unremarkable. Patient said that her blood pressure usually runs low in the 90s and 80s. She has been taking midodrine as directed. She was evaluated in the emergency room and her blood pressure was 95 /57. She was admitted to the hospital further evaluation. Troponin was significantly elevated which appears to be chronic. Patient denies any chest pain or shortness of breath. She is dizzy when she get up and walk around. 07/23/2017 patient scheduled for dialysis today. She is still has some dizziness when she gets up out of bed. All to monitor scheduled to be checked. Cortisol level pending. And she is scheduled for an EEG. Denies any chest pain or shortness of breath. Denies any nausea or vomiting. Reports that she has not been making urine for about 4 days. Objective - Vital Signs Vital signs: Vital Signs Temp 97.4 F L 07/23/17 08:00 Pulse 62 07/23/17 08:00 Resp 16 07/23/17 08:00 BP 88/53 07/23/17 08:00 Pulse Ox 100 07/23/17 08:00 Intake & Output 07/22/17 07/23/17 07/23/17 18:59 06:59 18:59 Intake Total 1077.844 360 360 Balance 1077.844 360 360 Weight 83 kg Intake: IV 240 0.9 KVO 240 Intake, IV Titration 357.844 Amount Heparin Sod,Pork in 0.45% 357.844 NaCl 25,000 unit In 0.45 % NaCl 1 500ml.bag @ 12 UNITS/KG/HR 19.59 mls/hr IV .Q24H MUKUND Rx#: [id number] Oral 720 120 360 Other: # Voids 2 0 - Exam Head normocephalic Neck supple Lungs clear to auscultation bilaterally no wheezing or crackles Heart regular rate and rhythm S1-S2, no rub or gallop Abdomen is soft nontender nondistended positive bowel sounds no hepatosplenomegaly Extremities no edema Neuro alert and orientated to 3 - Labs CBC & Chem 7: 07/23/17 05:35 07/23/17 05:35 Labs: Abnormal Lab Results - Last 24 Hours (Table) 07/21/17 07/22/17 07/22/17 Range/Units 18:46 11:35 16:19 RBC (3.80-5.40) m/uL Hgb (11.4-16.0) gm/dL MCHC (31.0-37.0) g/dL RDW (11.5-15.5) % Plt Count (150-450) k/uL BUN (7-17) mg/dL Creatinine (0.52-1.04) mg/dL Glucose (74-99) mg/dL POC Glucose (mg/dL) 141 H 158 H (75-99) mg/dL Hemoglobin A1c 6.2 H (4.0-6.0) % Calcium (8.4-10.2) mg/dL Phosphorus (2.5-4.5) mg/dL AST (14-36) U/L ALT (9-52) U/L Alkaline Phosphatase (38-126) U/L Total Protein (6.3-8.2) g/dL 07/22/17 07/23/17 07/23/17 Range/Units 20:51 05:35 05:35 RBC 3.56 L (3.80-5.40) m/uL Hgb 10.6 L (11.4-16.0) gm/dL MCHC 30.1 L (31.0-37.0) g/dL RDW 16.6 H (11.5-15.5) % Plt Count 133 L (150-450) k/uL BUN 38 H (7-17) mg/dL Creatinine 6.55 H* (0.52-1.04) mg/dL Glucose 112 H (74-99) mg/dL POC Glucose (mg/dL) 199 H (75-99) mg/dL Hemoglobin A1c (4.0-6.0) % Calcium 10.5 H (8.4-10.2) mg/dL Phosphorus 5.7 H (2.5-4.5) mg/dL AST 115 H (14-36) U/L ALT 128 H (9-52) U/L Alkaline Phosphatase 177 H (38-126) U/L Total Protein 5.9 L (6.3-8.2) g/dL 07/23/17 Range/Units 06:03 RBC (3.80-5.40) m/uL Hgb (11.4-16.0) gm/dL MCHC (31.0-37.0) g/dL RDW (11.5-15.5) % Plt Count (150-450) k/uL BUN (7-17) mg/dL Creatinine (0.52-1.04) mg/dL Glucose (74-99) mg/dL POC Glucose (mg/dL) 103 H (75-99) mg/dL Hemoglobin A1c (4.0-6.0) % Calcium (8.4-10.2) mg/dL Phosphorus (2.5-4.5) mg/dL AST (14-36) U/L ALT (9-52) U/L Alkaline Phosphatase (38-126) U/L Total Protein (6.3-8.2) g/dL Assessment and Plan Assessment: 1. Syncope, most likely attributed to hypotension. Patient is on midodrine 3 times a day. Cortisol level pending Computed tomography scan of the brain was unremarkable. We will repeat orthostatic blood pressure in the morning. Encouraged oral hydration. Cardiology and neurology consulted. Patient is scheduled for EEG concern for possible seizure. Patient did have loss of bowel or bladder control 2. History of coronary artery disease with prior CABG and multiple stent placement 3. End-stage renal disease on hemodialysis, nephrology following 4. Chronic hypotension maintained on midodrine. I will check cortisol level. May consider Florinef in addition to her regimen 5. Type 2 diabetes 6. Mixed hyperlipidemia 7. Elevated troponin likely secondary to abnormal renal function. Patient denies chest pain. EKG showed no acute findings. She was seen by cardiology. 8. Elevated LFTs. No abdominal pain. History of cholecystectomy. Discontinue statin. Repeat LFTs in a.m. Consult physical therapy I performed an examination of the patient and discussed their management with the physician Returned Materials Inspector. I have reviewed the Physician Returned Materials Inspector's notes and agree with the documented findings and plan of care
[2017-07-23 11:36] LABS: Glucose,Whole Blood 152 mg/dL (75-99)
--- NOTE | 2017-07-23 12:19 | P.PN ---
Subjective Progress Note Date: 07/23/17 This is a 62-year-old female who follows regularly with Dr. Rothman in the office. She has known history of end-stage renal disease on hemodialysis, diabetes, hypertension, hyperlipidemia, coronary artery disease with prior bypass surgery and stent placements, patient has had multiple admissions to the hospital with hypotension, most commonly during her dialysis treatments. On this occasion patient presents to the hospital with symptoms of syncope. According to the patient, her blood pressure has been running in the high 80s to low 90s at home for the past few days. She states that she called her yesterday morning to help her get ready for dialysis, as is the last thing she recalls. According to the , he had her stand up at bedside, the next thing he knew she was falling down, he helped her to the ground and was unable to wake her. Duration of time she was down is unknown. She did lose bowel and bladder function while she was out. On EMS arrival, patient was coming to, but was quite confused. EKG on arrival here showed a normal sinus rhythm with occasional PVCs. Chest x-ray reveals small posterior left pleural effusion. CAT scan of the spine was performed which revealed mild degenerative changes. CAT scan of the brain revealed atrophy with. Ventricular white matter ischemic type changes. Pelvic x-ray did not reveal any acute abnormality. Blood pressure on arrival here 95/57, heart rate in the 80s. Documented blood pressure on EMS arrival 136/106 with a heart rate in the 80s. 86% on room air. White blood cell count is normal, hemoglobin 10.9, platelet count 159, sodium 140, potassium 4.8, BUN 29, creatinine 4.9. On admission the BUN was 51 and creatinine 7.6, patient did undergo dialysis last evening. Troponins 1.9, 2.0, 2.2. BNP level 69,400. At the time of my examination this morning, patient denies any dizziness or lightheadedness. Patient does have a [address] monitor in place. 07/23/2017 Patient was seen and examined this morning, overall she is feeling better. Denies any dizziness or lightheadedness this morning. Blood pressure 99/60, 88/ 50, heart rate in the 60s. White blood cell count 8.1, hemoglobin 10.6, platelet count 133. Sodium 138, potassium 5.1, BUN 38, creatinine 6.5. A medium 2.0. Calcium 10.5, phosphorus 5.7, AST 1:15, ALT 128, alk phos 177. We will check the 30 day event monitor. Continue to hold Coreg. Objective - Vital Signs Vital signs: Vital Signs Temp 97.4 F L 07/23/17 08:00 Pulse 62 07/23/17 08:00 Resp 16 07/23/17 08:00 BP 88/53 07/23/17 08:00 Pulse Ox 100 07/23/17 08:00 Intake & Output 07/22/17 07/23/17 07/23/17 18:59 06:59 18:59 Intake Total 1077.844 360 360 Balance 1077.844 360 360 Weight 83 kg Intake: IV 240 0.9 KVO 240 Intake, IV Titration 357.844 Amount Heparin Sod,Pork in 0.45% 357.844 NaCl 25,000 unit In 0.45 % NaCl 1 500ml.bag @ 12 UNITS/KG/HR 19.59 mls/hr IV .Q24H MUKUND Rx#: [id number] Oral 720 120 360 Other: # Voids 2 0 - Exam PHYSICAL EXAMINATION: HEENT: Head is atraumatic, normocephalic. Pupils equal, round. Neck is supple. There is no elevated jugular venous pressure. HEART EXAMINATION: Heart S1 S2 1 systolic ejection murmur is heard CHEST EXAMINATION: Lungs are clear to auscultation and precussion. No chest wall tenderness is noted on palpation or with deep breathing. ABDOMEN: Soft, nontender. Bowel sounds are heard. No organomegaly noted. EXTREMITIES: 2+ peripheral pulses with no evidence of peripheral edema and no calf tenderness noted. NEUROLOGIC patient is awake, alert and oriented -3. . - Labs CBC & Chem 7: 07/23/17 05:35 07/23/17 05:35 Labs: Abnormal Lab Results - Last 24 Hours (Table) 07/21/17 07/22/17 07/22/17 Range/Units 18:46 16:19 20:51 RBC (3.80-5.40) m/uL Hgb (11.4-16.0) gm/dL MCHC (31.0-37.0) g/dL RDW (11.5-15.5) % Plt Count (150-450) k/uL BUN (7-17) mg/dL Creatinine (0.52-1.04) mg/dL Glucose (74-99) mg/dL POC Glucose (mg/dL) 158 H 199 H (75-99) mg/dL Hemoglobin A1c 6.2 H (4.0-6.0) % Calcium (8.4-10.2) mg/dL Phosphorus (2.5-4.5) mg/dL AST (14-36) U/L ALT (9-52) U/L Alkaline Phosphatase (38-126) U/L Total Protein (6.3-8.2) g/dL 07/23/17 07/23/17 07/23/17 Range/Units 05:35 05:35 06:03 RBC 3.56 L (3.80-5.40) m/uL Hgb 10.6 L (11.4-16.0) gm/dL MCHC 30.1 L (31.0-37.0) g/dL RDW 16.6 H (11.5-15.5) % Plt Count 133 L (150-450) k/uL BUN 38 H (7-17) mg/dL Creatinine 6.55 H* (0.52-1.04) mg/dL Glucose 112 H (74-99) mg/dL POC Glucose (mg/dL) 103 H (75-99) mg/dL Hemoglobin A1c (4.0-6.0) % Calcium 10.5 H (8.4-10.2) mg/dL Phosphorus 5.7 H (2.5-4.5) mg/dL AST 115 H (14-36) U/L ALT 128 H (9-52) U/L Alkaline Phosphatase 177 H (38-126) U/L Total Protein 5.9 L (6.3-8.2) g/dL 07/23/17 Range/Units 11:32 RBC (3.80-5.40) m/uL Hgb (11.4-16.0) gm/dL MCHC (31.0-37.0) g/dL RDW (11.5-15.5) % Plt Count (150-450) k/uL BUN (7-17) mg/dL Creatinine (0.52-1.04) mg/dL Glucose (74-99) mg/dL POC Glucose (mg/dL) 152 H (75-99) mg/dL Hemoglobin A1c (4.0-6.0) % Calcium (8.4-10.2) mg/dL Phosphorus (2.5-4.5) mg/dL AST (14-36) U/L ALT (9-52) U/L Alkaline Phosphatase (38-126) U/L Total Protein (6.3-8.2) g/dL Assessment and Plan Plan: Assessment and plan #1 syncope, blood pressure on EMS arrival 136/106. Documented blood pressures at home prior to event were running in the 80s to 90s systolic. EKG shows a normal sinus rhythm with occasional PVCs, ST depression noted in the lateral leads. Patient also lost bowel and bladder function, neurology consulted. #2 end-stage renal disease on hemodialysis #3 coronary artery disease with prior bypass surgery and multiple stent placements #4 hypertension history #5 hyperlipidemia #6 diabetes #7 multiple hospital admissions for hypotension #8 abnormal troponins, likely secondary to abnormal renal function. Patient denies having any chest discomfort. Persistence in abnormal troponins noted on prior admissions. Plan Orthostatics were obtained today, blood pressure 72/48 lying 98/60 sitting and 113/60 standing. We will continue with the midodrine, we will also check the 30 day event monitor. Statin has also been placed on hold because of abnormal liver functions. DNP note has been reviewed, I agree with a documented findings and plan of care. Patient was seen and examined.
[2017-07-23 13:53] LABS: Glucose,Whole Blood 210 mg/dL (75-99)
[2017-07-23] MEDS ORDERED: ATROPINE SULFATE 0.1 MG/ML 10ML SYRINGE ONE (13:53)
[2017-07-23] MEDS ORDERED: ATROPINE SULFATE 0.1 MG/ML 10ML SYRINGE IV STA (13:56)
[2017-07-23] MEDS ORDERED: LORazepam 2 MG/ML INJ IV STA (14:33)
[2017-07-23 14:49] LABS: Glucose,Whole Blood 232 mg/dL (75-99)
--- NOTE | 2017-07-23 17:20 | P.CNPUL ---
History of Present Illness Consult date: 07/23/17 Chief complaint: Syncope History of present illness: [age]-year-old female patient with multiple medical problems and comorbidities. The patient is known to have an incisional disease on hemodialysis 3 times a week, and addition to history of diabetes, hypertension, hyperlipidemia and coronary artery disease with previous history of bypass surgery and previous coronary intervention and stenting. The patient has had multiple admissions to the hospital with complaints of hypotension mostly occurring during dialysis. During this current hospitalization of 07/21/2017, the patient came in with syncope. Her blood pressure was low and this systolic blood pressure was in the mid 80s. The patient does not recall a lot of the events of the courtesy her. She stated that she called her on a nail donation for help to get her ready for dialysis. According to the the patient was able to stand up and next thing she collapsed and she had a syncopal episode. He was unable to gather awake. During this time, the patient was unconscious and she didn't lose bowel or bladder function while she was out. EMS was called to the scene and the patient was awake and confused. EKG was done and showed a sinus rhythm with occasional PVCs. In the hospital the patient had a chest x-ray which showed a small left-sided pleural effusion. CAT scan of the spine showed degenerative changes. CAT scan of the brain showed atrophy. There was also chronic ischemic changes. X-ray of the pelvis showed no acute abnormalities. Blood pressure remained an issue and it was 95/57 and time of admission with a heart rate in the mid 80s. The patient had a creatinine of 7.6 with a BUN of 51. Potassium was not elevated at 4.8. Troponins were 1.9, 2 and 2.2 respectively. BNP level was 69,004 100. The patient was admitted to the medical floor. Her Coreg was held. The plan was to put her on a 30 day event monitor. Cardiology also saw the patient. Meanwhile, this afternoon, the patient became hypotensive and syncopal again and EKG showed a third-degree AV block and the patient got moved to the intensive care unit. A pulmonary critical care consultation was also requested. The patient was given a 500 mL of normal saline bolus. An urology consultation was also obtained and the patient was seen yesterday by Dr. Sanchez. Her neurologic examination was nonfocal. EEG was recommended. Nephrology was also consulted. Note that the patient was taking midodrine for regarding of hypotension. The echocardiogram that was done from 05/29/2017 showed a 11th current ejection fraction of 25 to 6 :30 percent consistent with severe LV dysfunction. The LV was severely dilated. There was segmental motion abnormalities. Right ventricular pressure was estimated to be 46 millimeters of mercury. There was severe mitral regurgitation. There was moderate degree of tricuspid regurgitation. Currently the patient on 2 L of oxygen by nasal cannula. Nephrology has ordered to proceed with dialysis today. Her serum cortisol level from yesterday was 31. LFTs are mildly elevated with an AST of 115, ALT of 128 and alkaline phosphatase of 177. Potassium from this morning was 5.1. Review of Systems Constitutional: Reports fatigue, Reports weakness Eyes: denies blurred vision, denies bulging eye, denies decreased vision Ears: deny: decreased hearing, ear discharge, earache Ears, nose, mouth and throat: Denies headache, Denies sore throat Cardiovascular: Reports as per HPI, Reports irregular heart beat, Reports shortness of breath, Reports syncope Respiratory: Reports dyspnea Gastrointestinal: Denies abdominal pain, Denies diarrhea, Denies nausea, Denies vomiting Genitourinary: Reports as per HPI Musculoskeletal: Denies myalgias Musculoskeletal: absent: ankle pain, ankle stiffness, ankle swelling Integumentary: Denies pruritus, Denies rash Neurological: Reports syncope, Reports weakness Psychiatric: Denies anxiety, Denies depression Endocrine: Denies fatigue, Denies weight change Past Medical History Past Medical History: Coronary Artery Disease (CAD), Chest Pain / Angina, Heart Failure, Diabetes Mellitus, Hyperlipidemia, Hypertension, Myocardial Infarction ([place]), Renal Disease, Thyroid Disorder Additional Past Medical History / Comment(s): Link artery disease, multiple previous MIs, CHF with ejection fraction of 25-30%, moderate degree of pulmonary hypertension, end-stage renal disease on hemodialysis, insulin- dependent diabetes mellitus type 2, gout, history of peripheral neuropathy, chronic anemia, mitral regurgitation moderate in severity, chronic hypoxic respiratory failure with oxygen 2 L during dialysis, chronic hypotension, previous syncope, hypothyroidism, gout Last Myocardial Infarction Date:: 04/01/17 History of Any Multi-Drug Resistant Organisms: None Reported Past Surgical History: Coronary Bypass/CABG, Heart Catheterization, Heart Catheterization With Stent Additional Past Surgical History / Comment(s): Cardiac caths-tx medially/pt recently had cardiac cath while in [place] 04/2017, PCI/STENTS, 2015-3 VESSEL CABG, AV fistula R upper arm, colonoscopy-normal, bilateral cataract removal with lens implants, bilateral eye laser sx to remove fluid. Past Anesthesia/Blood Transfusion Reactions: Previous Problems w/ Anesthesia Additional Past Anesthesia/Blood Transfusion Reaction / Comment(s): POST OP DILERIUM/AGITATION/PSYCHOSIS-RESOLVED. Pt states she had a problem with hypotension last time she received versed. Date of Last Stent Placement:: 04/03/17 Past Psychological History: Depression Additional Psychological History / Comment(s): Pt lives with her spouse in a 2 story home that has 2 porch steps. 1 pet cat. pt has a cane,walker,w/c,shower chair/bsc if needed and a nebulizer. Spouse manages her medications. They have been 39 yrs. Smoking Status: Never smoker Past Alcohol Use History: None Reported Past Drug Use History: None Reported - Past Family History Mother Family Medical History: Diabetes Mellitus, Myocardial Infarction ([place]), Thyroid Disorder Additional Family Medical History / Comment(s): CABG, gout, hypothyroid. Mother is 80yrs old. Sister(s) Family Medical History: Diabetes Mellitus, Thyroid Disorder Father Family Medical History: Diabetes Mellitus, Myocardial Infarction ([place]) Additional Family Medical History / Comment(s): Father at the age of 67yrs of a [place] Medications and Allergies Home Medications Medication Instructions Recorded Confirmed Type Allopurinol [Zyloprim] 100 mg PO DAILY 11/15/14 07/21/17 History Gabapentin [Neurontin] 100 mg PO BID 11/15/14 07/21/17 History Omeprazole [PriLOSEC] 20 mg PO DAILY 01/31/15 07/21/17 History Insulin Glargine [Lantus] 35 unit SQ HS 03/03/15 07/21/17 History Sertraline [Zoloft] 50 mg PO HS 03/03/15 07/21/17 History Cinacalcet HCl [Sensipar] 30 mg PO HS 05/06/16 07/21/17 History Insulin Aspart [NovoLOG See Protocol SQ AC-TID 05/06/16 07/21/17 History (formulary)] Montelukast [Singulair] 10 mg PO HS #30 tab 06/30/16 07/21/17 Rx Atorvastatin [Lipitor] 40 mg PO HS 03/19/17 07/21/17 History Clopidogrel [Plavix] 75 mg PO HS #30 tab 04/05/17 07/21/17 Rx Nitroglycerin Sl Tabs [Nitrostat] 0.4 mg SUBLINGUAL Q5M PRN #25 tab 05/31/1708/05 Rx Aspirin [Adult Low Dose Aspirin EC] 81 mg PO HS 06/18/17 07/21/17 History Calcium Acetate [PhosLo] 2,001 mg PO AC-TID 06/18/17 07/21/17 History ALPRAZolam [Xanax] 0.25 mg PO HS 07/21/17 07/21/17 History Carvedilol [Coreg] 3.125 mg PO BID PRN 07/21/17 07/21/17 History Midodrine HCl [ProAmatine] 10 mg PO BID 07/21/17 07/21/17 History Pantoprazole [Protonix] 40 mg PO HS 07/21/17 07/21/17 History Allergies Allergy/AdvReac Type Severity Reaction Status Date / Time adhesive Allergy Rash/Hives Verified 07/21/17 12:28 cephalexin monohydrate Allergy Rash/Hives Verified 07/21/17 12:28 [From Keflex] hydromorphone HCl Allergy Hallucinati Verified 07/21/17 12:28 [From Dilaudid] ons iodine Allergy Rash/Hives Verified 07/21/17 12:28 Penicillins Allergy Unknown Verified 07/21/17 12:28 Childhood povidone-iodine Allergy Unknown Verified 07/21/17 12:28 [From Betadine] shellfish derived [Shrimp] Allergy Rash/Hives Verified 07/21/17 12:28 soap [From Betadine] Allergy Unknown Verified 07/21/17 12:28 codeine AdvReac Confusion Verified 07/21/17 12:28 fentanyl AdvReac Unknown Verified 07/21/17 12:28 hydrocodone bitartrate AdvReac Itching Verified 07/21/17 12:28 [From Vicodin] midazolam [From Versed] AdvReac Unknown Verified 07/21/17 12:28 morphine AdvReac Hallucinati Verified 07/21/17 12:28 ons tramadol AdvReac Itching Verified 07/21/17 12:28 artifical sweetener AdvReac Unknown Uncoded 07/21/17 10:13 Physical Exam Vitals: Vital Signs Temp Pulse Resp BP BP BP Pulse Ox 07/23/17 12:00 97.2 F L 74 18 113/54 98/62 72/48 97 07/23/17 08:00 97.4 F L 62 16 88/53 100 07/23/17 04:00 97.7 F 73 18 99/61 98 07/22/17 23:41 97 F L 77 18 85/57 96 07/22/17 20:00 96.9 F L 76 16 104/54 98 Intake and Output 07/23/17 07/23/17 07/23/17 06:59 14:59 22:59 Intake Total 300 960 Balance 300 960 Intake: IV 240 0.9 KVO 240 Oral 60 960 Other: # Voids 0 0 Weight 83 kg PHYSICAL EXAMINATION: HEENT: Head is atraumatic, normocephalic. Pupils equal, round. Neck is supple. There is no elevated jugular venous pressure. HEART EXAMINATION: Heart S1 S2 1 systolic ejection murmur is heard, irregular pulse with frequent PVCs, no right ventricular heave or any thrill. CHEST EXAMINATION: Lungs are clear to auscultation and precussion. No chest wall tenderness is noted on palpation or with deep breathing. ABDOMEN: Soft, nontender. Bowel sounds are heard. No organomegaly noted. EXTREMITIES: 2+ peripheral pulses with no evidence of peripheral edema and no calf tenderness noted. [place] fistula in the left upper extremity, functional NEUROLOGIC patient is awake, alert and oriented -3. The patient is moving all 4 extremities without any limitation Examination of the skin revealed no evidence of significant rashes, suspicious appearing nevi or other concerning lesions. Results - Laboratory Findings CBC and BMP: 07/23/17 05:35 07/23/17 05:35 PT/INR, D-dimer PT 10.6 sec (9.0-12.0) 07/21/17 10:59 INR 1.1 (<1.2) 07/21/17 10:59 Abnormal lab findings: Abnormal Labs 07/21/17 07/21/17 07/21/17 10:59 10:59 12:01 RBC Hgb MCV MCHC 30.0 L RDW 16.8 H Plt Count Lymphocytes # 0.8 L APTT 21.8 L Potassium 5.8 H Carbon Dioxide 21 L BUN 51 H Creatinine 7.62 H* Glucose 188 H POC Glucose (mg/dL) Hemoglobin A1c Calcium 10.4 H Phosphorus 7.2 H AST 64 H ALT Alkaline Phosphatase 182 H CK-MB (CK-2) Troponin I Total Protein 07/21/17 07/21/17 07/21/17 12:01 16:55 18:46 RBC Hgb MCV MCHC RDW Plt Count Lymphocytes # APTT Potassium Carbon Dioxide BUN Creatinine Glucose POC Glucose (mg/dL) 146 H Hemoglobin A1c Calcium Phosphorus AST ALT Alkaline Phosphatase CK-MB (CK-2) 4.0 H* 2.9 H* Troponin I 1.940 H* 2.020 H* Total Protein 07/21/17 07/21/17 07/21/17 18:46 18:46 21:00 RBC Hgb MCV MCHC RDW Plt Count Lymphocytes # APTT 51.8 H Potassium Carbon Dioxide BUN Creatinine Glucose POC Glucose (mg/dL) 129 H Hemoglobin A1c 6.2 H Calcium Phosphorus AST ALT Alkaline Phosphatase CK-MB (CK-2) Troponin I Total Protein 07/21/17 07/22/17 07/22/17 23:16 06:12 06:25 RBC 3.69 L Hgb 10.9 L MCV 101.1 H MCHC 29.3 L RDW 16.7 H Plt Count Lymphocytes # APTT Potassium Carbon Dioxide BUN Creatinine Glucose POC Glucose (mg/dL) 105 H Hemoglobin A1c Calcium Phosphorus AST ALT Alkaline Phosphatase CK-MB (CK-2) 2.7 H* Troponin I 2.230 H* Total Protein 07/22/17 07/22/17 07/22/17 06:25 06:25 11:35 RBC Hgb MCV MCHC RDW Plt Count Lymphocytes # APTT 30.1 H Potassium Carbon Dioxide 21 L BUN 29 H Creatinine 4.93 H Glucose 103 H POC Glucose (mg/dL) 141 H Hemoglobin A1c Calcium Phosphorus AST ALT Alkaline Phosphatase CK-MB (CK-2) Troponin I Total Protein 07/22/17 07/22/17 07/23/17 16:19 20:51 05:35 RBC 3.56 L Hgb 10.6 L MCV MCHC 30.1 L RDW 16.6 H Plt Count 133 L Lymphocytes # APTT Potassium Carbon Dioxide BUN Creatinine Glucose POC Glucose (mg/dL) 158 H 199 H Hemoglobin A1c Calcium Phosphorus AST ALT Alkaline Phosphatase CK-MB (CK-2) Troponin I Total Protein 07/23/17 07/23/17 07/23/17 05:35 06:03 11:32 RBC Hgb MCV MCHC RDW Plt Count Lymphocytes # APTT Potassium Carbon Dioxide BUN 38 H Creatinine 6.55 H* Glucose 112 H POC Glucose (mg/dL) 103 H 152 H Hemoglobin A1c Calcium 10.5 H Phosphorus 5.7 H AST 115 H ALT 128 H Alkaline Phosphatase 177 H CK-MB (CK-2) Troponin I Total Protein 5.9 L 07/23/17 07/23/17 13:33 14:04 RBC Hgb MCV MCHC RDW Plt Count Lymphocytes # APTT Potassium Carbon Dioxide BUN Creatinine Glucose POC Glucose (mg/dL) 210 H 232 H Hemoglobin A1c Calcium Phosphorus AST ALT Alkaline Phosphatase CK-MB (CK-2) Troponin I Total Protein - Diagnostic Findings Chest x-ray: image reviewed Assessment and Plan Plan: Assessment -Syncope, likely cardiogenic in nature. The rhythm strips was noted and the patient was having some bradycardia arrhythmias which raises the suspicion for a high degree AV block. Cardiology is on the case. Noted the patient also runs a borderline low blood pressure and the patient has been maintained on midodrine on outpatient basis. Her usual systolic blood pressure runs in the mid 80s. Doubt any neurogenic component for syncopes -Incisional disease on hemodialysis 3 times a week -Coronary artery disease with previous bypass surgery and multiple coronary stent placements -Hyperlipidemia -Diabetes mellitus him a currently on Levemir insulin. No evidence of any hypotension -CHF with an ejection fraction of 25-30% in addition to mitral regurgitation -Chronic hypertension -Chronic anemia -Peripheral neuropathy -Chronic anxiety/depression maintained on Zoloft and Xanax on outpatient basis -Abnormal LFTs/transaminitis Plan As cardiology to reevaluate this patient in light of this cardiac arrhythmias. Patient will be monitored in the ICU. Neurology follow-up. He repeat EEG. May need to repeat the CAT scan of the head. May proceed with dialysis today. We'll continue to follow.
[2017-07-23 18:10] LABS: Glucose,Whole Blood 207 mg/dL (75-99)
--- NOTE | 2017-07-23 18:23 | P.PN ---
Subjective Progress Note Date: 07/23/17 This patient is a 62 year old female who seen yesterday for syncope vs. seizure. The patient had a 3rd degree heart block and had epsiode of question seizure, so she was transferred to the ICU this afternoon. According to the daughter who was there at the bedside she had an episode of shaking and tremulousness. Her eyes rolled back. This occurred on 2 separate occasions. She was transferred to the intensive care unit for close monitoring. The patient was evaluated by cardiology as there was concern for third-degree heart block however Dr. Engle has reviewed her cardiac history and does not feel this was the case for a cause of her unresponsiveness. Patient did undergo a routine EEG today which was reviewed. EEG reveals mild slowing with occasional sharp wave activity noted. We have recommended the patient to be placed on anticonvulsant therapy at this time. She will be monitored in the intensive care unit today and we will continue close follow-up. She is much more awake and alert in the intensive care unit at this time. She is being treated for history of severe hypotension and we will await further recommendations from cardiology. Her overall prognosis at this time remains guarded. We have reviewed the EEG results today with the patient. We will continue close neurological follow-up with this patient during this admission. Her overall prognosis at this time remains guarded. Objective - Vital Signs Vital signs: Vital Signs Temp 97.2 F L 07/23/17 12:00 Pulse 74 07/23/17 12:00 Resp 18 07/23/17 12:00 BP 113/54 07/23/17 12:00 Pulse Ox 97 07/23/17 12:00 Intake & Output 07/22/17 07/23/17 07/23/17 18:59 06:59 18:59 Intake Total 1077.844 360 960 Balance 1077.844 360 960 Weight 83 kg Intake: IV 240 0.9 KVO 240 Intake, IV Titration 357.844 Amount Heparin Sod,Pork in 0.45% 357.844 NaCl 25,000 unit In 0.45 % NaCl 1 500ml.bag @ 12 UNITS/KG/HR 19.59 mls/hr IV .Q24H MUKUND Rx#: [id number] Oral 720 120 960 Other: # Voids 2 0 0 - Exam Physical Examination: PHYSICAL EXAMINATION: Patient is resting comfortably in bed. VITAL SIGNS: Blood pressure is [114/54]. Heart rate is [74]. Respiration is [18] . Temperature is [97.2]. HEENT: Head is atraumatic, neck is supple, there were no carotid bruits. CHEST: Lungs are clear to auscultation and percussion. CARDIAC: S1, S2 normal rate and rhythm. There is no murmur. ABDOMEN: Soft and nontender. Bowel sounds are present. EXTREMITIES: There is no pedal edema. Peripheral pulses are present. Neurological examination: Patient has a nonfocal neurological examination at this time. She is much more awake and alert and orientedx 3. She is following all simple commands. There is no focal motor deficit on examination. Deep tendon reflexes are 1+ and symmetric. Plantar responses flexor bilaterally. - Labs CBC & Chem 7: 07/23/17 05:35 07/23/17 05:35 Labs: Abnormal Lab Results - Last 24 Hours (Table) 07/21/17 07/22/17 07/23/17 Range/Units 18:46 20:51 05:35 RBC 3.56 L (3.80-5.40) m/uL Hgb 10.6 L (11.4-16.0) gm/dL MCHC 30.1 L (31.0-37.0) g/dL RDW 16.6 H (11.5-15.5) % Plt Count 133 L (150-450) k/uL BUN (7-17) mg/dL Creatinine (0.52-1.04) mg/dL Glucose (74-99) mg/dL POC Glucose (mg/dL) 199 H (75-99) mg/dL Hemoglobin A1c 6.2 H (4.0-6.0) % Calcium (8.4-10.2) mg/dL Phosphorus (2.5-4.5) mg/dL AST (14-36) U/L ALT (9-52) U/L Alkaline Phosphatase (38-126) U/L Total Protein (6.3-8.2) g/dL 07/23/17 07/23/17 07/23/17 Range/Units 05:35 06:03 11:32 RBC (3.80-5.40) m/uL Hgb (11.4-16.0) gm/dL MCHC (31.0-37.0) g/dL RDW (11.5-15.5) % Plt Count (150-450) k/uL BUN 38 H (7-17) mg/dL Creatinine 6.55 H* (0.52-1.04) mg/dL Glucose 112 H (74-99) mg/dL POC Glucose (mg/dL) 103 H 152 H (75-99) mg/dL Hemoglobin A1c (4.0-6.0) % Calcium 10.5 H (8.4-10.2) mg/dL Phosphorus 5.7 H (2.5-4.5) mg/dL AST 115 H (14-36) U/L ALT 128 H (9-52) U/L Alkaline Phosphatase 177 H (38-126) U/L Total Protein 5.9 L (6.3-8.2) g/dL 07/23/17 07/23/17 Range/Units 13:33 14:04 RBC (3.80-5.40) m/uL Hgb (11.4-16.0) gm/dL MCHC (31.0-37.0) g/dL RDW (11.5-15.5) % Plt Count (150-450) k/uL BUN (7-17) mg/dL Creatinine (0.52-1.04) mg/dL Glucose (74-99) mg/dL POC Glucose (mg/dL) 210 H 232 H (75-99) mg/dL Hemoglobin A1c (4.0-6.0) % Calcium (8.4-10.2) mg/dL Phosphorus (2.5-4.5) mg/dL AST (14-36) U/L ALT (9-52) U/L Alkaline Phosphatase (38-126) U/L Total Protein (6.3-8.2) g/dL Assessment and Plan (1) Vasovagal syncope Current Visit: Yes Status: Acute Code(s): R55 - SYNCOPE AND COLLAPSE SNOMED Code(s): 916268514 (2) Hypotension Current Visit: Yes Status: Acute Code(s): I95.9 - HYPOTENSION, UNSPECIFIED SNOMED Code(s): 44106688 (3) Non-STEMI (non-ST elevated myocardial infarction) Current Visit: Yes Status: Acute Code(s): I21.4 - NON-ST ELEVATION (NSTEMI) MYOCARDIAL INFARCTION SNOMED Code(s): 894784609 (4) Bradycardia Current Visit: No Status: Acute Code(s): R00.1 - BRADYCARDIA, UNSPECIFIED SNOMED Code(s): 97063111 (5) End stage renal disease on dialysis Current Visit: No Status: Acute Code(s): N18.6 - END STAGE RENAL DISEASE SNOMED Code(s): 244479034 Plan: This patient is a 62-year-old female being evaluated for syncope versus seizure. She was coming along well until this morning when she had 2 episodes of shaking and questionable seizure-like activity. There was also questionable third-degree heart block. She was transferred to the intensive care unit. She underwent routine EEG the results of which are noted above. At this time we would recommend placing this patient on anticonvulsant therapy. We will suggest Keppra thousand milligrams IV piggyback as a load followed by a maintenance dose of Keppra 500 mg by mouth twice a day. We will continue close monitoring of the patient during this admission. Hopefully she will be transferred out of the ICU tomorrow. We will check a Keppra level when she is given the IV load. Her overall prognosis at this time remains guarded. Case was discussed at length with the patient and her daughter at bedside. All of their questions were answered. We will continue to follow her very closely in the intensive care unit. Her overall prognosis at this time remains guarded.
--- NOTE | 2017-07-23 19:32 | EEG ---
ELECTROENCEPHALOGRAM REPORT DATE OF EE07/23/2017. REFERRING PHYSICIAN: Dr. Campos. CONSULTING INTERPRETING PHYSICIAN: Dr. James Sanchez MD ELECTROENCEPHALOGRAPHIC EXAMINATION REPORT: INDICATION FOR EXAMINATION: This patient is a 62-year-old female being evaluated for syncope versus seizure. Patient with 2 episodes this morning causing her to be transferred to the intensive care unit. Suggesting possible seizure activity. AGE: [age]. EEG FINDINGS: A routine 21 channel awake digital EEG recording was accomplished utilizing the 10-20 international system with bipolar and referential montages. The background activity in the most alert resting state consists of a low to medium amplitude, fairly well- developed well sustained 6-7 Hz activity over the posterior head regions. This posterior rhythm attenuates to eye opening. There is a small amount of low amplitude. The 18-20 Hz beta activity seen maximally over the anterior head regions. Muscle and movement artifact was observed on a few occasions during the tracing. Hyperventilation was not performed. Photic stimulation at flash frequencies of 2-30 Hz produced a good symmetrical occipital driving response. On 2 occasions generalized sharp wave was noted. No other epileptiform discharges were seen. IMPRESSION: This EEG is mildly abnormal in a diffuse fashion due to slight slowing of the EEG background. The EEG failed to reveal any focal, lateralized, or epileptiform abnormalities. Generalized sharp wave was noted on 2 occasions. If clinically indicated a followup EEG is recommended. Clinical correlation is recommended. MMODL / SÁNCHEZN: [id number] /
[2017-07-23 20:49] LABS: Glucose,Whole Blood 122 mg/dL (75-99)
[2017-07-23] MEDS: INSULIN DETEMIR 100 UNIT/ML 10 ML VIAL SQ SCH (22:47)
[2017-07-23] MEDS: SERTRALINE 50 MG TAB PO SCH (22:48)
[2017-07-23] MEDS: CLOPIDOGREL 75 MG TAB PO SCH (22:48)
[2017-07-23] MEDS: CINACALCET 30 MG TAB PO SCH (22:48)
[2017-07-23] MEDS: PANTOPRAZOLE 40 MG TABLET PO SCH (22:48)
[2017-07-23] MEDS: ASPIRIN 81 MG PO SCH (22:48)
[2017-07-23] MEDS: MONTELUKAST 10 MG TAB PO SCH (22:48)
[2017-07-24] MEDS: ALPRAZolam 0.25 MG TAB PO SCH ×2 (02:18→23:12)
[2017-07-24 04:41] LABS: Anisocytosis Slight; Basophils # (A) 0.1 k/uL (0-0.2); Basophils % (A) 1 %; Eosinophils # (A) 0.3 k/uL (0-0.7); Eosinophils % (A) 3 %; HCT 33.4 % (34.0-46.0); HGB 10.6 gm/dL (11.4-16.0); Hypochromasia Slight; Lymphocytes # (A) 1.4 k/uL (1.0-4.8); Lymphocytes % (A) 14 %; MCH 30.5 pg (25.0-35.0); MCHC 31.7 g/dL (31.0-37.0); MCV 96.2 fL (80.0-100.0); Macrocytosis Slight; Mean Platelet Volume 8.7; Monocytes # (A) 0.6 k/uL (0-1.0); Monocytes % (A) 6 %; Neutrophils # (A) 7.4 k/uL (1.3-7.7); Neutrophils % (A) 75 %; Platelet Count 148 k/uL (150-450); RBC 3.47 m/uL (3.80-5.40); RDW 16.9 % (11.5-15.5); WBC 9.9 k/uL (3.8-10.6)
[2017-07-24 05:14] LABS: Albumin 3.2 g/dL (3.5-5.0); Calcium 9.8 mg/dL (8.4-10.2); Potassium 4.7 mmol/L (3.5-5.1); Total Bilirubin 0.6 mg/dL (0.2-1.3); Total Protein 5.4 g/dL (6.3-8.2)
[2017-07-24] MEDS: INSULIN ASPART 100 UNIT/ML 1 ML 10 ML VIAL SQ SCH ×4 (06:06→21:43)
[2017-07-24 06:07] LABS: Glucose,Whole Blood 103 mg/dL (75-99)
[2017-07-24] MEDS: CALCIUM ACETATE 667 MG CAP PO SCH ×3 (06:34→17:39)
[2017-07-24] MEDS: MIDODRINE 5 MG TAB PO SCH ×3 (06:34→17:40)
[2017-07-24] MEDS ORDERED: levETIRAcetam IV 1,000 MG in SALINE 1 100ML.BAG IVPB STA (08:24)
[2017-07-24] MEDS: GABAPENTIN 100 MG CAP PO SCH ×2 (08:35→21:29)
[2017-07-24] MEDS: ALLOPURINOL 100 MG TAB PO SCH (08:35)
[2017-07-24] MEDS: ONDANSETRON 4 MG/2 ML VIAL IVP PRN (08:36)
--- NOTE | 2017-07-24 11:29 | P.PN ---
Subjective Progress Note Date: 07/24/17 62-year-old female patient with multiple medical problems and comorbidities. The patient is known to have an incisional disease on hemodialysis 3 times a week, and addition to history of diabetes, hypertension, hyperlipidemia and coronary artery disease with previous history of bypass surgery and previous coronary intervention and stenting. The patient has had multiple admissions to the hospital with complaints of hypotension mostly occurring during dialysis. During this current hospitalization of 07/21/2017, the patient came in with syncope. Her blood pressure was low and this systolic blood pressure was in the mid 80s. The patient does not recall a lot of the events of the courtesy her. She stated that she called her on a nail donation for help to get her ready for dialysis. According to the the patient was able to stand up and next thing she collapsed and she had a syncopal episode. He was unable to gather awake. During this time, the patient was unconscious and she didn't lose bowel or bladder function while she was out. EMS was called to the scene and the patient was awake and confused. EKG was done and showed a sinus rhythm with occasional PVCs. In the hospital the patient had a chest x-ray which showed a small left-sided pleural effusion. CAT scan of the spine showed degenerative changes. CAT scan of the brain showed atrophy. There was also chronic ischemic changes. X-ray of the pelvis showed no acute abnormalities. Blood pressure remained an issue and it was 95/57 and time of admission with a heart rate in the mid 80s. The patient had a creatinine of 7.6 with a BUN of 51. Potassium was not elevated at 4.8. Troponins were 1.9, 2 and 2.2 respectively. BNP level was 69,004 100. The patient was admitted to the medical floor. Her Coreg was held. The plan was to put her on a 30 day event monitor. Cardiology also saw the patient. Meanwhile, this afternoon, the patient became hypotensive and syncopal again and EKG showed a third-degree AV block and the patient got moved to the intensive care unit. A pulmonary critical care consultation was also requested. The patient was given a 500 mL of normal saline bolus. An urology consultation was also obtained and the patient was seen yesterday by Dr. Sanchez. Her neurologic examination was nonfocal. EEG was recommended. Nephrology was also consulted. Note that the patient was taking midodrine for regarding of hypotension. The echocardiogram that was done from 05/29/2017 showed a 11th current ejection fraction of 25 to 6 :30 percent consistent with severe LV dysfunction. The LV was severely dilated. There was segmental motion abnormalities. Right ventricular pressure was estimated to be 46 millimeters of mercury. There was severe mitral regurgitation. There was moderate degree of tricuspid regurgitation. Currently the patient on 2 L of oxygen by nasal cannula. Nephrology has ordered to proceed with dialysis today. Her serum cortisol level from yesterday was 31. LFTs are mildly elevated with an AST of 115, ALT of 128 and alkaline phosphatase of 177. Potassium from this morning was 5.1. On 07/24/2017 I'm seeing this patient for a follow-up in the patient is doing well. She is laying comfortably in bed. Cardiology saw the rhythm strips and based on Dr. Beckham's opinion there is no evidence of any third-degree AV block and the patient will not need a pacemaker insertion. There was a concern for seizure activity and the patient was started on Keppra by neurology. The patient underwent dialysis yesterday. She has resting comfortably in bed and she has no other new complaints otherwise for now today. Her white cell count is at 9.9 and hemoglobin stable at 10.6. Creatinine is down to 4.0. No altered mentation. The patient's blood pressure today is 108/62 and the patient is on room air with a pulse ox of 97%. No focal neurological deficits. Objective - Vital Signs Vital signs: Vital Signs Temp 97.0 F L 07/24/17 08:00 Pulse 82 07/24/17 08:00 Resp 16 07/24/17 08:00 BP 108/62 07/24/17 08:00 Pulse Ox 97 07/24/17 08:00 Intake & Output 07/23/17 07/24/17 07/24/17 18:59 06:59 18:59 Intake Total 1460 0 450 Output Total 0 1000 Balance 1460 -1000 450 Weight 85.8 kg Intake: IV 500 0 0.9 KVO 500 0 Intake, IV Titration 100 Amount levETIRAcetam IV 1,000 mg 100 In Saline 1 100ml.bag @ 400 mls/hr IVPB ONCE STA Rx#:[id number] Oral 960 350 Output: Urine 0 0 Other 1000 Other: # Voids 0 0 # Bowel Movements 0 0 - Exam PHYSICAL EXAMINATION: HEENT: Head is atraumatic, normocephalic. Pupils equal, round. Neck is supple. There is no elevated jugular venous pressure. HEART EXAMINATION: Heart S1 S2 1 systolic ejection murmur is heard, irregular pulse with frequent PVCs, no right ventricular heave or any thrill. CHEST EXAMINATION: Lungs are clear to auscultation and precussion. No chest wall tenderness is noted on palpation or with deep breathing. ABDOMEN: Soft, nontender. Bowel sounds are heard. No organomegaly noted. EXTREMITIES: 2+ peripheral pulses with no evidence of peripheral edema and no calf tenderness noted. [place] fistula in the left upper extremity, functional NEUROLOGIC patient is awake, alert and oriented -3. The patient is moving all 4 extremities without any limitation Examination of the skin revealed no evidence of significant rashes, suspicious appearing nevi or other concerning lesions. - Labs CBC & Chem 7: 07/24/17 04:25 07/24/17 04:01 Labs: Abnormal Lab Results - Last 24 Hours (Table) 07/23/17 07/23/17 07/23/17 Range/Units 11:32 13:33 14:04 RBC (3.80-5.40) m/uL Hgb (11.4-16.0) gm/dL Hct (34.0-46.0) % RDW (11.5-15.5) % Plt Count (150-450) k/uL BUN (7-17) mg/dL Creatinine (0.52-1.04) mg/dL Glucose (74-99) mg/dL POC Glucose (mg/dL) 152 H 210 H 232 H (75-99) mg/dL AST (14-36) U/L ALT (9-52) U/L Alkaline Phosphatase (38-126) U/L Total Protein (6.3-8.2) g/dL Albumin (3.5-5.0) g/dL 07/23/17 07/23/17 07/24/17 Range/Units 18:08 20:47 04:01 RBC (3.80-5.40) m/uL Hgb (11.4-16.0) gm/dL Hct (34.0-46.0) % RDW (11.5-15.5) % Plt Count (150-450) k/uL BUN 21 H (7-17) mg/dL Creatinine 4.08 H (0.52-1.04) mg/dL Glucose 51 L (74-99) mg/dL POC Glucose (mg/dL) 207 H 122 H (75-99) mg/dL AST 189 H (14-36) U/L ALT 218 H (9-52) U/L Alkaline Phosphatase 169 H (38-126) U/L Total Protein 5.4 L (6.3-8.2) g/dL Albumin 3.2 L (3.5-5.0) g/dL 07/24/17 07/24/17 Range/Units 04:25 06:02 RBC 3.47 L (3.80-5.40) m/uL Hgb 10.6 L (11.4-16.0) gm/dL Hct 33.4 L (34.0-46.0) % RDW 16.9 H (11.5-15.5) % Plt Count 148 L (150-450) k/uL BUN (7-17) mg/dL Creatinine (0.52-1.04) mg/dL Glucose (74-99) mg/dL POC Glucose (mg/dL) 103 H (75-99) mg/dL AST (14-36) U/L ALT (9-52) U/L Alkaline Phosphatase (38-126) U/L Total Protein (6.3-8.2) g/dL Albumin (3.5-5.0) g/dL Assessment and Plan Plan: Assessment -Syncope, no evidence of any high degree AV block and the patient is awake without any focal neurological deficits. Possibility of seizure activity is being entertained and the patient is on Keppra. Neurology is on the case. -End stage renal disease on hemodialysis 3 times a week -Coronary artery disease with previous bypass surgery and multiple coronary stent placements -Hyperlipidemia -Diabetes mellitus him a currently on Levemir insulin. No evidence of any hypotension -CHF with an ejection fraction of 25-30% in addition to mitral regurgitation -Chronic hypertension -Chronic anemia -Peripheral neuropathy -Chronic anxiety/depression maintained on Zoloft and Xanax on outpatient basis -Abnormal LFTs/transaminitis Plan Monitor the rhythm and monitor the blood pressure. Continue Keppra. Dialysis per nephrology. The patient is allowed out of the intensive care unit. We'll sign off the case and we'll leave the rest of the management to the medical and specialist from cardiology and neurology.
[2017-07-24 11:47] LABS: Glucose,Whole Blood 131 mg/dL (75-99)
--- NOTE | 2017-07-24 13:10 | P.PN ---
Subjective Progress Note Date: 07/24/17 This is a 62-year-old female with a very complex past medical history noted below significant for end-stage renal disease on hemodialysis, history of coronary artery disease with prior CABG, and chronic hypotension maintained on midodrine who presented to the hospital with a syncopal episode. This happened yesterday when patient was trying to get ready for dialysis. Apparently she lost consciousness without head trauma. There was reported loss of bowel and bladder control. Patient was brought to the emergency room. Computed tomography scan of the brain was unremarkable. Patient said that her blood pressure usually runs low in the 90s and 80s. She has been taking midodrine as directed. She was evaluated in the emergency room and her blood pressure was 95 /57. She was admitted to the hospital further evaluation. Troponin was significantly elevated which appears to be chronic. Patient denies any chest pain or shortness of breath. She is dizzy when she get up and walk around. 07/23/2017 patient scheduled for dialysis today. She is still has some dizziness when she gets up out of bed. All to monitor scheduled to be checked. Cortisol level pending. And she is scheduled for an EEG. Denies any chest pain or shortness of breath. Denies any nausea or vomiting. Reports that she has not been making urine for about 4 days. 07/24/2017 patient was transferred to the ICU yesterday with concerns of third- degree heart block and seizure. Patient also had evidence of hypotension. She received a dose of IV Ativan fluid bolus and atropine. She was did well through the night started on Keppra per neurology. Was able to be transferred out of the ICU this morning to the sixth floor. Cardiology has reviewed rhythms drips and Dr. Engle feels is no evidence of a third-degree AV block and that patient will not require pacemaker insertion. She is currently in normal sinus rhythm. Objective - Vital Signs Vital signs: Vital Signs Temp 97.2 F L 07/24/17 12:00 Pulse 75 07/24/17 12:00 Resp 14 07/24/17 12:00 BP 144/51 07/24/17 12:00 Pulse Ox 97 07/24/17 08:00 Intake & Output 07/23/17 07/24/17 07/24/17 18:59 06:59 18:59 Intake Total 1460 0 450 Output Total 0 1000 Balance 1460 -1000 450 Weight 85.8 kg Intake: IV 500 0 0.9 KVO 500 0 Intake, IV Titration 100 Amount levETIRAcetam IV 1,000 mg 100 In Saline 1 100ml.bag @ 400 mls/hr IVPB ONCE STA Rx#:[id number] Oral 960 350 Output: Urine 0 0 Other 1000 Other: # Voids 0 0 # Bowel Movements 0 0 - Exam Head normocephalic Neck supple Lungs clear to auscultation bilaterally no wheezing or crackles Heart regular rate and rhythm S1-S2, no rub or gallop Abdomen is soft nontender nondistended positive bowel sounds no hepatosplenomegaly Extremities no edema Neuro alert and orientated to 3 - Labs CBC & Chem 7: 07/24/17 04:25 07/24/17 04:01 Labs: Abnormal Lab Results - Last 24 Hours (Table) 07/23/17 07/23/17 07/23/17 Range/Units 13:33 14:04 18:08 RBC (3.80-5.40) m/uL Hgb (11.4-16.0) gm/dL Hct (34.0-46.0) % RDW (11.5-15.5) % Plt Count (150-450) k/uL BUN (7-17) mg/dL Creatinine (0.52-1.04) mg/dL Glucose (74-99) mg/dL POC Glucose (mg/dL) 210 H 232 H 207 H (75-99) mg/dL AST (14-36) U/L ALT (9-52) U/L Alkaline Phosphatase (38-126) U/L Total Protein (6.3-8.2) g/dL Albumin (3.5-5.0) g/dL 07/23/17 07/24/17 07/24/17 Range/Units 20:47 04:01 04:25 RBC 3.47 L (3.80-5.40) m/uL Hgb 10.6 L (11.4-16.0) gm/dL Hct 33.4 L (34.0-46.0) % RDW 16.9 H (11.5-15.5) % Plt Count 148 L (150-450) k/uL BUN 21 H (7-17) mg/dL Creatinine 4.08 H (0.52-1.04) mg/dL Glucose 51 L (74-99) mg/dL POC Glucose (mg/dL) 122 H (75-99) mg/dL AST 189 H (14-36) U/L ALT 218 H (9-52) U/L Alkaline Phosphatase 169 H (38-126) U/L Total Protein 5.4 L (6.3-8.2) g/dL Albumin 3.2 L (3.5-5.0) g/dL 07/24/17 07/24/17 Range/Units 06:02 11:40 RBC (3.80-5.40) m/uL Hgb (11.4-16.0) gm/dL Hct (34.0-46.0) % RDW (11.5-15.5) % Plt Count (150-450) k/uL BUN (7-17) mg/dL Creatinine (0.52-1.04) mg/dL Glucose (74-99) mg/dL POC Glucose (mg/dL) 103 H 131 H (75-99) mg/dL AST (14-36) U/L ALT (9-52) U/L Alkaline Phosphatase (38-126) U/L Total Protein (6.3-8.2) g/dL Albumin (3.5-5.0) g/dL Assessment and Plan Assessment: 1. Syncope possibly secondary to seizure. Patient evaluated by cardiology no evidence of high degree AV block. Neurology has placed patient on Keppra 2. History of coronary artery disease with prior CABG and multiple stent placement 3. End-stage renal disease on hemodialysis, nephrology following 4. Chronic hypotension maintained on midodrine. 5. Type 2 diabetes 6. Mixed hyperlipidemia 7. Elevated troponin likely secondary to abnormal renal function. Patient denies chest pain. EKG showed no acute findings. She was seen by cardiology. 8. Elevated LFTs. Possibly related to patient's hypotension. Continue to monitor statin discontinued. No abdominal pain. History of cholecystectomy. 9. Anemia of chronic kidney disease on Aranesp Consult physical therapy DVT prophylaxis subcu heparin I performed an examination of the patient and discussed their management with the physician Media Marketing Coordinator. I have reviewed the Physician Media Marketing Coordinator's notes and agree with the documented findings and plan of care
--- NOTE | 2017-07-24 14:06 | P.PN ---
Subjective Progress Note Date: 07/24/17 This is a 62-year-old female who follows regularly with Dr. Rothman in the office. She has known history of end-stage renal disease on hemodialysis, diabetes, hypertension, hyperlipidemia, coronary artery disease with prior bypass surgery and stent placements, patient has had multiple admissions to the hospital with hypotension, most commonly during her dialysis treatments. On this occasion patient presents to the hospital with symptoms of syncope. According to the patient, her blood pressure has been running in the high 80s to low 90s at home for the past few days. She states that she called her yesterday morning to help her get ready for dialysis, as is the last thing she recalls. According to the , he had her stand up at bedside, the next thing he knew she was falling down, he helped her to the ground and was unable to wake her. Duration of time she was down is unknown. She did lose bowel and bladder function while she was out. On EMS arrival, patient was coming to, but was quite confused. EKG on arrival here showed a normal sinus rhythm with occasional PVCs. Chest x-ray reveals small posterior left pleural effusion. CAT scan of the spine was performed which revealed mild degenerative changes. CAT scan of the brain revealed atrophy with. Ventricular white matter ischemic type changes. Pelvic x-ray did not reveal any acute abnormality. Blood pressure on arrival here 95/57, heart rate in the 80s. Documented blood pressure on EMS arrival 136/106 with a heart rate in the 80s. 86% on room air. White blood cell count is normal, hemoglobin 10.9, platelet count 159, sodium 140, potassium 4.8, BUN 29, creatinine 4.9. On admission the BUN was 51 and creatinine 7.6, patient did undergo dialysis last evening. Troponins 1.9, 2.0, 2.2. BNP level 69,400. At the time of my examination this morning, patient denies any dizziness or lightheadedness. Patient does have a 30 [address] monitor in place. 07/23/2017 Patient was seen and examined this morning, overall she is feeling better. Denies any dizziness or lightheadedness this morning. Blood pressure 99/60, 88/ 50, heart rate in the 60s. White blood cell count 8.1, hemoglobin 10.6, platelet count 133. Sodium 138, potassium 5.1, BUN 38, creatinine 6.5. A medium 2.0. Calcium 10.5, phosphorus 5.7, AST 1:15, ALT 128, alk phos 177. We will check the 30 day event monitor. Continue to hold Coreg. 07/24/2017 Patient had an episode yesterday afternoon where she had seizure-like activity, apparently was drooling, and staring out. At the same time she was noted to be quite hypotensive and was question as to whether or not she was in a complete heart block. The rhythm strips were reviewed by Dr. Jimenez, patient had a functional heart block, there is no evidence of third-degree heart block. Today she was seen and examined on the telemetry unit her blood pressure is 108/ 80. Rate in the 80s today. She is overall feeling better just complaining of feeling weak. Hemoglobin 10.6, sodium 137, BUN 21, creatinine 4.08. Objective - Vital Signs Vital signs: Vital Signs Temp 97.2 F L 07/24/17 12:00 Pulse 75 07/24/17 12:00 Resp 14 07/24/17 12:00 BP 144/51 07/24/17 12:00 Pulse Ox 97 07/24/17 08:00 Intake & Output 07/23/17 07/24/17 07/24/17 18:59 06:59 18:59 Intake Total 1460 0 450 Output Total 0 1000 Balance 1460 -1000 450 Weight 85.8 kg Intake: IV 500 0 0.9 KVO 500 0 Intake, IV Titration 100 Amount levETIRAcetam IV 1,000 mg 100 In Saline 1 100ml.bag @ 400 mls/hr IVPB ONCE STA Rx#:[id number] Oral 960 350 Output: Urine 0 0 Other 1000 Other: # Voids 0 0 # Bowel Movements 0 0 - Exam PHYSICAL EXAMINATION: HEENT: Head is atraumatic, normocephalic. Pupils equal, round. Neck is supple. There is no elevated jugular venous pressure. HEART EXAMINATION: Heart S1 S2 1 systolic ejection murmur is heard CHEST EXAMINATION: Lungs are clear to auscultation and precussion. No chest wall tenderness is noted on palpation or with deep breathing. ABDOMEN: Soft, nontender. Bowel sounds are heard. No organomegaly noted. EXTREMITIES: 2+ peripheral pulses with no evidence of peripheral edema and no calf tenderness noted. NEUROLOGIC patient is awake, alert and oriented -3. . - Labs CBC & Chem 7: 07/24/17 04:25 07/24/17 04:01 Labs: Abnormal Lab Results - Last 24 Hours (Table) 07/23/17 07/23/17 07/23/17 Range/Units 14:04 18:08 20:47 RBC (3.80-5.40) m/uL Hgb (11.4-16.0) gm/dL Hct (34.0-46.0) % RDW (11.5-15.5) % Plt Count (150-450) k/uL BUN (7-17) mg/dL Creatinine (0.52-1.04) mg/dL Glucose (74-99) mg/dL POC Glucose (mg/dL) 232 H 207 H 122 H (75-99) mg/dL AST (14-36) U/L ALT (9-52) U/L Alkaline Phosphatase (38-126) U/L Total Protein (6.3-8.2) g/dL Albumin (3.5-5.0) g/dL 07/24/17 07/24/17 07/24/17 Range/Units 04:01 04:25 06:02 RBC 3.47 L (3.80-5.40) m/uL Hgb 10.6 L (11.4-16.0) gm/dL Hct 33.4 L (34.0-46.0) % RDW 16.9 H (11.5-15.5) % Plt Count 148 L (150-450) k/uL BUN 21 H (7-17) mg/dL Creatinine 4.08 H (0.52-1.04) mg/dL Glucose 51 L (74-99) mg/dL POC Glucose (mg/dL) 103 H (75-99) mg/dL AST 189 H (14-36) U/L ALT 218 H (9-52) U/L Alkaline Phosphatase 169 H (38-126) U/L Total Protein 5.4 L (6.3-8.2) g/dL Albumin 3.2 L (3.5-5.0) g/dL 07/24/17 Range/Units 11:40 RBC (3.80-5.40) m/uL Hgb (11.4-16.0) gm/dL Hct (34.0-46.0) % RDW (11.5-15.5) % Plt Count (150-450) k/uL BUN (7-17) mg/dL Creatinine (0.52-1.04) mg/dL Glucose (74-99) mg/dL POC Glucose (mg/dL) 131 H (75-99) mg/dL AST (14-36) U/L ALT (9-52) U/L Alkaline Phosphatase (38-126) U/L Total Protein (6.3-8.2) g/dL Albumin (3.5-5.0) g/dL Assessment and Plan Plan: Assessment and plan #1 syncope, blood pressure on EMS arrival 136/106. Documented blood pressures at home prior to event were running in the 80s to 90s systolic. EKG shows a normal sinus rhythm with occasional PVCs, ST depression noted in the lateral leads. Patient also lost bowel and bladder function, neurology consulted. #2 end-stage renal disease on hemodialysis #3 coronary artery disease with prior bypass surgery and multiple stent placements #4 hypertension history #5 hyperlipidemia #6 diabetes #7 multiple hospital admissions for hypotension #8 abnormal troponins, likely secondary to abnormal renal function. Patient denies having any chest discomfort. Persistence in abnormal troponins noted on prior admissions. Plan We will continue to monitor the patient, the rhythm the patient had yesterday during her seizure like activity appeared to be a functional heart block. Frequent PVCs. Today the rhythm has settled quite a bit, patient is in normal sinus rhythm with a heart rate in the 80s. She was also seen by Dr. Sanchez and her EEG was reviewed, patient was initiated on Keppra. We will continue to follow. DNP note has been reviewed, I agree with a documented findings and plan of care. Patient was seen and examined.
[2017-07-24 16:57] LABS: Glucose,Whole Blood 142 mg/dL (75-99)
--- NOTE | 2017-07-24 20:54 | PN ---
PROGRESS NOTE Patient is seen for followup for end-stage renal disease. She was transferred to the ICU, as she was hypotensive and had a seizure. The patient has been transferred out of the ICU now. She was dialyzed yesterday. Her blood pressure has been staying about 80- 90 mmHg. The patient remains on midodrine 10 mg t.i.d. She states that she seems to have put on about 7-8 pounds, since we have not been able to get much fluid off due to hypotension. EXAMINATION: Blood pressure was 86/53, heart rate 75 per minute. Patient is afebrile. HEART: S1, S2. LUNGS: Decreased breath sounds at bases. Abdomen is soft, nontender. Lower extremities show no evidence of edema. [employer] is grossly intact. Patient moving all 4 extremities. LABS: Show sodium 137, potassium 4.7, BUN 21, serum creatinine 4.0. Hemoglobin 10.6 g/dL. ASSESSMENT: 1. End-stage renal disease on hemodialysis on a Sunday, Sunday, Sunday schedule. We will arrange for hemodialysis in a.m. 2. Hypotension with a 3rd-degree heart block noted on initial transfer to the ICU. The patient has been evaluated by Cardiology and there was no further evidence of heart block. 3. New onset seizures, started on Keppra. 4. Hypotension, which is worse recently. Currently maintained on midodrine. Cortisol level was not low. It was at 31. 5. Anemia of chronic disease. 6. Maintained on erythrocyte-stimulating agent as outpatient. PLAN: Hemodialysis in a.m. Try to increase UF as tolerated. Continue with the midodrine. Will discuss with Cardiology. MMODL / IJN: [id number] /
[2017-07-24] MEDS ORDERED: levETIRAcetam 500 MG TAB PO SCH (21:00)
[2017-07-24 21:23] LABS: Glucose,Whole Blood 134 mg/dL (75-99)
[2017-07-24] MEDS: ASPIRIN 81 MG PO SCH (21:29)
[2017-07-24] MEDS: PANTOPRAZOLE 40 MG TABLET PO SCH (21:29)
[2017-07-24] MEDS: CINACALCET 30 MG TAB PO SCH (21:29)
[2017-07-24] MEDS: levETIRAcetam 500 MG TAB PO SCH (21:29)
[2017-07-24] MEDS: SERTRALINE 50 MG TAB PO SCH (21:29)
[2017-07-24] MEDS: CLOPIDOGREL 75 MG TAB PO SCH (21:29)
[2017-07-24] MEDS: MONTELUKAST 10 MG TAB PO SCH (21:30)
[2017-07-24] MEDS: HEPARIN SODIUM,PORCINE 5,000 UNIT/ML 1 ML VIAL SQ SCH (21:30)
[2017-07-24] MEDS: INSULIN DETEMIR 100 UNIT/ML 10 ML VIAL SQ SCH (21:30)
--- NOTE | 2017-07-24 22:00 | P.PN ---
Subjective Progress Note Date: 07/24/17 This patient is a 62 year old female who seen yesterday for syncope vs. seizure. The patient had a 3rd degree heart block and had epsiode of question seizure, so she was transferred to the ICU this afternoon. According to the daughter who was there at the bedside she had an episode of shaking and tremulousness. Her eyes rolled back. This occurred on 2 separate occasions. She was transferred to the intensive care unit for close monitoring. The patient was evaluated by cardiology as there was concern for third-degree heart block however Dr. Engle has reviewed her cardiac history and does not feel this was the case for a cause of her unresponsiveness. Patient did undergo a routine EEG today which was reviewed. EEG reveals mild slowing with occasional sharp wave activity noted. We have recommended the patient to be placed on anticonvulsant therapy at this time. Patient was initiated on Keppra this morning with a loading dose. We will obtain a Keppra blood level in 24 hours for monitoring. She was transferred out of the intensive care unit today. She is much more awake and alert at this time. She is being treated for history of severe hypotension and we will await further recommendations from cardiology. Her overall prognosis at this time remains guarded. We have reviewed the EEG results today with the patient. We will continue close neurological follow-up with this patient during this admission. Her overall prognosis at this time remains guarded. Objective - Vital Signs Vital signs: Vital Signs Temp 98.4 F 07/24/17 15:51 Pulse 80 07/24/17 16:00 Resp 16 07/24/17 15:51 BP 86/53 07/24/17 15:51 Pulse Ox 97 07/24/17 15:51 Intake & Output 07/24/17 07/24/17 07/25/17 06:59 18:59 06:59 Intake Total 0 710 Output Total 1000 Balance -1000 710 Weight 85.8 kg Intake: IV 0 0 0.9 KVO 0 0 Intake, IV Titration 100 Amount levETIRAcetam IV 1,000 mg 100 In Saline 1 100ml.bag @ 400 mls/hr IVPB ONCE STA Rx#:[id number] Oral 610 Output: Urine 0 Other 1000 Other: # Voids 0 # Bowel Movements 0 - Exam Physical Examination: PHYSICAL EXAMINATION: Patient is resting comfortably in bed. VITAL SIGNS: Blood pressure is [137/59]. Heart rate is [70]. Respiration is [18] . Temperature is [97.2]. HEENT: Head is atraumatic, neck is supple, there were no carotid bruits. CHEST: Lungs are clear to auscultation and percussion. CARDIAC: S1, S2 normal rate and rhythm. There is no murmur. ABDOMEN: Soft and nontender. Bowel sounds are present. EXTREMITIES: There is no pedal edema. Peripheral pulses are present. Neurological examination: Patient has a nonfocal neurological examination at this time. She is much more awake and alert and orientedx 3. She is following all simple commands. There is no focal motor deficit on examination. Deep tendon reflexes are 1+ and symmetric. Plantar responses flexor bilaterally. - Labs CBC & Chem 7: 07/24/17 04:25 07/24/17 04:01 Labs: Abnormal Lab Results - Last 24 Hours (Table) 07/23/17 07/24/17 07/24/17 Range/Units 20:47 04:01 04:25 RBC 3.47 L (3.80-5.40) m/uL Hgb 10.6 L (11.4-16.0) gm/dL Hct 33.4 L (34.0-46.0) % RDW 16.9 H (11.5-15.5) % Plt Count 148 L (150-450) k/uL BUN 21 H (7-17) mg/dL Creatinine 4.08 H (0.52-1.04) mg/dL Glucose 51 L (74-99) mg/dL POC Glucose (mg/dL) 122 H (75-99) mg/dL AST 189 H (14-36) U/L ALT 218 H (9-52) U/L Alkaline Phosphatase 169 H (38-126) U/L Total Protein 5.4 L (6.3-8.2) g/dL Albumin 3.2 L (3.5-5.0) g/dL 07/24/17 07/24/17 07/24/17 Range/Units 06:02 11:40 16:52 RBC (3.80-5.40) m/uL Hgb (11.4-16.0) gm/dL Hct (34.0-46.0) % RDW (11.5-15.5) % Plt Count (150-450) k/uL BUN (7-17) mg/dL Creatinine (0.52-1.04) mg/dL Glucose (74-99) mg/dL POC Glucose (mg/dL) 103 H 131 H 142 H (75-99) mg/dL AST (14-36) U/L ALT (9-52) U/L Alkaline Phosphatase (38-126) U/L Total Protein (6.3-8.2) g/dL Albumin (3.5-5.0) g/dL Assessment and Plan (1) Vasovagal syncope Current Visit: Yes Status: Acute Code(s): R55 - SYNCOPE AND COLLAPSE SNOMED Code(s): 618518883 (2) Hypotension Current Visit: Yes Status: Acute Code(s): I95.9 - HYPOTENSION, UNSPECIFIED SNOMED Code(s): 48813616 (3) Non-STEMI (non-ST elevated myocardial infarction) Current Visit: Yes Status: Acute Code(s): I21.4 - NON-ST ELEVATION (NSTEMI) MYOCARDIAL INFARCTION SNOMED Code(s): 200926818 (4) Bradycardia Current Visit: No Status: Acute Code(s): R00.1 - BRADYCARDIA, UNSPECIFIED SNOMED Code(s): 05309781 (5) End stage renal disease on dialysis Current Visit: No Status: Acute Code(s): N18.6 - END STAGE RENAL DISEASE SNOMED Code(s): 994564952 Plan: This patient is a 62-year-old female who is being evaluated for symptoms suggesting seizure disorder. Patient had several seizure-like events yesterday as she was being evaluated for a third degree heart block versus seizure. She had 2 events that were witnessed by her daughter. She was transferred to the intensive care unit. She was transferred out of the intensive care unit this morning and seems to be making good progress. Her EEG was reviewed and did reveal some abnormalities and we recommended placing the patient on anticonvulsant therapy. She was started on Keppra for further management of underlying seizure disorder. Cardiology has seen the patient and feel that there is no evidence of third degree AV block and she does not require pacemaker insertion at this time. Patient's blood pressure has shown slight improvement today. We will await further recommendations from cardiology. We will continue the patient on current dose of Keppra. We will obtain a Keppra blood level tomorrow morning and adjust her dose as needed. Case was discussed at length today with the patient at bedside. All of her questions were answered. We will continue to follow her closely during this admission. Overall prognosis at this time remains guarded.
[2017-07-25 05:53] LABS: Glucose,Whole Blood 72 mg/dL (75-99)
[2017-07-25 06:20] LABS: Anisocytosis Slight; Basophils # (A) 0.1 k/uL (0-0.2); Basophils % (A) 1 %; Eosinophils # (A) 0.2 k/uL (0-0.7); Eosinophils % (A) 2 %; HCT 34.7 % (34.0-46.0); HGB 10.8 gm/dL (11.4-16.0); Hypochromasia Moderate; Lymphocytes # (A) 1.8 k/uL (1.0-4.8); Lymphocytes % (A) 19 %; MCH 30.1 pg (25.0-35.0); MCV 97.1 fL (80.0-100.0); Macrocytosis Slight; Mean Platelet Volume 9.3; Monocytes # (A) 0.6 k/uL (0-1.0); Monocytes % (A) 6 %; Neutrophils # (A) 6.6 k/uL (1.3-7.7); Neutrophils % (A) 70 %; Platelet Count 161 k/uL (150-450); RBC 3.58 m/uL (3.80-5.40); WBC 9.3 k/uL (3.8-10.6)
[2017-07-25] MEDS: CALCIUM ACETATE 667 MG CAP PO SCH ×2 (06:29→11:37)
[2017-07-25] MEDS: INSULIN ASPART 100 UNIT/ML 1 ML 10 ML VIAL SQ SCH ×4 (06:29→21:12)
[2017-07-25] MEDS: MIDODRINE 5 MG TAB PO SCH ×3 (06:29→17:47)
[2017-07-25 06:32] LABS: Albumin 3.3 g/dL (3.5-5.0); Calcium 10.7 mg/dL (8.4-10.2); Phosphorus 4.9 mg/dL (2.5-4.5); Total Bilirubin 0.5 mg/dL (0.2-1.3); Total Protein 5.5 g/dL (6.3-8.2)
[2017-07-25] MEDS: levETIRAcetam 500 MG TAB PO SCH ×2 (09:53→20:50)
[2017-07-25] MEDS: ALLOPURINOL 100 MG TAB PO SCH (09:53)
[2017-07-25] MEDS: HEPARIN SODIUM,PORCINE 5,000 UNIT/ML 1 ML VIAL SQ SCH ×2 (09:53→20:49)
[2017-07-25] MEDS: GABAPENTIN 100 MG CAP PO SCH ×2 (09:53→20:50)
--- NOTE | 2017-07-25 11:25 | P.PN ---
Subjective Progress Note Date: 07/25/17 This is a 62-year-old female who follows regularly with Dr. Rothman in the office. She has known history of end-stage renal disease on hemodialysis, diabetes, hypertension, hyperlipidemia, coronary artery disease with prior bypass surgery and stent placements, patient has had multiple admissions to the hospital with hypotension, most commonly during her dialysis treatments. On this occasion patient presents to the hospital with symptoms of syncope. According to the patient, her blood pressure has been running in the high 80s to low 90s at home for the past few days. She states that she called her yesterday morning to help her get ready for dialysis, as is the last thing she recalls. According to the , he had her stand up at bedside, the next thing he knew she was falling down, he helped her to the ground and was unable to wake her. Duration of time she was down is unknown. She did lose bowel and bladder function while she was out. On EMS arrival, patient was coming to, but was quite confused. EKG on arrival here showed a normal sinus rhythm with occasional PVCs. Chest x-ray reveals small posterior left pleural effusion. CAT scan of the spine was performed which revealed mild degenerative changes. CAT scan of the brain revealed atrophy with. Ventricular white matter ischemic type changes. Pelvic x-ray did not reveal any acute abnormality. Blood pressure on arrival here 95/57, heart rate in the 80s. Documented blood pressure on EMS arrival 136/106 with a heart rate in the 80s. 86% on room air. White blood cell count is normal, hemoglobin 10.9, platelet count 159, sodium 140, potassium 4.8, BUN 29, creatinine 4.9. On admission the BUN was 51 and creatinine 7.6, patient did undergo dialysis last evening. Troponins 1.9, 2.0, 2.2. BNP level 69,400. At the time of my examination this morning, patient denies any dizziness or lightheadedness. Patient does have a 30 [address] event monitor in place. 07/23/2017 Patient was seen and examined this morning, overall she is feeling better. Denies any dizziness or lightheadedness this morning. Blood pressure 99/60, 88/ 50, heart rate in the 60s. White blood cell count 8.1, hemoglobin 10.6, platelet count 133. Sodium 138, potassium 5.1, BUN 38, creatinine 6.5. A medium 2.0. Calcium 10.5, phosphorus 5.7, AST 1:15, ALT 128, alk phos 177. We will check the 30 day event monitor. Continue to hold Coreg. 07/24/2017 Patient had an episode yesterday afternoon where she had seizure-like activity, apparently was drooling, and staring out. At the same time she was noted to be quite hypotensive and was question as to whether or not she was in a complete heart block. The rhythm strips were reviewed by Dr. Jimenez, patient had a functional heart block, there is no evidence of third-degree heart block. Today she was seen and examined on the telemetry unit her blood pressure is 108/ 80. Rate in the 80s today. She is overall feeling better just complaining of feeling weak. Hemoglobin 10.6, sodium 137, BUN 21, creatinine 4.08. 07/25/2017 Patient was seen and examined this morning, she was up walking with physical therapy today. Overall looking significantly better today. Blood pressure 120/ 60 with heart rate in the 70s. Objective - Vital Signs Vital signs: Vital Signs Temp 97.6 F 07/25/17 08:00 Pulse 77 07/25/17 08:00 Resp 16 07/25/17 08:00 BP 120/61 07/25/17 08:00 Pulse Ox 100 07/25/17 08:00 Intake & Output 07/24/17 07/25/17 07/25/17 18:59 06:59 18:59 Intake Total 710 10 Output Total 0 Balance 710 10 Weight 84.2 kg Intake: IV 0 10 0.9 KVO 0 10 Intake, IV Titration 100 Amount levETIRAcetam IV 1,000 mg 100 In Saline 1 100ml.bag @ 400 mls/hr IVPB ONCE STA Rx#:[id number] Oral 610 Output: Urine 0 Other: # Voids 1 - Exam PHYSICAL EXAMINATION: HEENT: Head is atraumatic, normocephalic. Pupils equal, round. Neck is supple. There is no elevated jugular venous pressure. HEART EXAMINATION: Heart S1 S2 1 systolic ejection murmur is heard CHEST EXAMINATION: Lungs are clear to auscultation and precussion. No chest wall tenderness is noted on palpation or with deep breathing. ABDOMEN: Soft, nontender. Bowel sounds are heard. No organomegaly noted. EXTREMITIES: 2+ peripheral pulses with no evidence of peripheral edema and no calf tenderness noted. NEUROLOGIC patient is awake, alert and oriented -3. . - Labs CBC & Chem 7: 07/25/17 05:29 07/25/17 05:29 Labs: Abnormal Lab Results - Last 24 Hours (Table) 07/24/17 07/24/17 07/24/17 Range/Units 11:40 16:52 21:21 RBC (3.80-5.40) m/uL Hgb (11.4-16.0) gm/dL RDW (11.5-15.5) % Sodium (137-145) mmol/L BUN (7-17) mg/dL Creatinine (0.52-1.04) mg/dL Glucose (74-99) mg/dL POC Glucose (mg/dL) 131 H 142 H 134 H (75-99) mg/dL Calcium (8.4-10.2) mg/dL Phosphorus (2.5-4.5) mg/dL AST (14-36) U/L ALT (9-52) U/L Alkaline Phosphatase (38-126) U/L Total Protein (6.3-8.2) g/dL Albumin (3.5-5.0) g/dL 07/25/17 07/25/17 07/25/17 Range/Units 05:29 05:29 05:42 RBC 3.58 L (3.80-5.40) m/uL Hgb 10.8 L (11.4-16.0) gm/dL RDW 17.0 H (11.5-15.5) % Sodium 134 L (137-145) mmol/L BUN 28 H (7-17) mg/dL Creatinine 5.60 H* (0.52-1.04) mg/dL Glucose 53 L (74-99) mg/dL POC Glucose (mg/dL) 72 L (75-99) mg/dL Calcium 10.7 H (8.4-10.2) mg/dL Phosphorus 4.9 H (2.5-4.5) mg/dL AST 149 H (14-36) U/L ALT 228 H (9-52) U/L Alkaline Phosphatase 178 H (38-126) U/L Total Protein 5.5 L (6.3-8.2) g/dL Albumin 3.3 L (3.5-5.0) g/dL Assessment and Plan Plan: Assessment and plan #1 syncope, blood pressure on EMS arrival 136/106. Documented blood pressures at home prior to event were running in the 80s to 90s systolic. EKG shows a normal sinus rhythm with occasional PVCs, ST depression noted in the lateral leads. Patient also lost bowel and bladder function, neurology consulted. #2 end-stage renal disease on hemodialysis #3 coronary artery disease with prior bypass surgery and multiple stent placements #4 hypertension history #5 hyperlipidemia #6 diabetes #7 multiple hospital admissions for hypotension #8 abnormal troponins, likely secondary to abnormal renal function. Patient denies having any chest discomfort. Persistence in abnormal troponins noted on prior admissions. Plan From cardiology's perspective, we will continue the patient on her current medications. She may be able to be discharged from our standpoint once cleared by nephrology and primary. A follow-up appointment will be made with Dr. Rothman in the office post discharge. DNP note has been reviewed, I agree with a documented findings and plan of care. Patient was seen and examined.
--- NOTE | 2017-07-25 11:26 | P.PN ---
Progress Note - Text All rhythm strips in ECG is reviewed Patient admitted for seizure management ECGs and rhythm strips show normal baseline ND interval No manifest AV block of any degree in the absence of PVCs PVC induced ND prolongation and 2-1 AV block consistent with phenomena of concealed retrograde conduction Furthermore there is retrograde invasion of the sinus node with one beat of sinus arrest No bradycardia and no pauses at the time of her seizure activity Frequent PVCs ventricle couplets and ventricular bigeminy Impression PVC and ventricular bigeminy induced functional AV block
[2017-07-25 11:27] VITALS: BMI 30.9
[2017-07-25 11:30] LABS: Glucose,Whole Blood 175 mg/dL (75-99)
--- NOTE | 2017-07-25 12:18 | P.PN ---
Subjective Progress Note Date: 07/25/17 This is a 62-year-old female with a very complex past medical history noted below significant for end-stage renal disease on hemodialysis, history of coronary artery disease with prior CABG, and chronic hypotension maintained on midodrine who presented to the hospital with a syncopal episode. This happened yesterday when patient was trying to get ready for dialysis. Apparently she lost consciousness without head trauma. There was reported loss of bowel and bladder control. Patient was brought to the emergency room. Computed tomography scan of the brain was unremarkable. Patient said that her blood pressure usually runs low in the 90s and 80s. She has been taking midodrine as directed. She was evaluated in the emergency room and her blood pressure was 95 /57. She was admitted to the hospital further evaluation. Troponin was significantly elevated which appears to be chronic. Patient denies any chest pain or shortness of breath. She is dizzy when she get up and walk around. 07/23/2017 patient scheduled for dialysis today. She is still has some dizziness when she gets up out of bed. All to monitor scheduled to be checked. Cortisol level pending. And she is scheduled for an EEG. Denies any chest pain or shortness of breath. Denies any nausea or vomiting. Reports that she has not been making urine for about 4 days. 07/24/2017 patient was transferred to the ICU yesterday with concerns of third- degree heart block and seizure. Patient also had evidence of hypotension. She received a dose of IV Ativan fluid bolus and atropine. She was did well through the night started on Keppra per neurology. Was able to be transferred out of the ICU this morning to the sixth floor. Cardiology has reviewed rhythms drips and Dr. Engle feels is no evidence of a third-degree AV block and that patient will not require pacemaker insertion. She is currently in normal sinus rhythm. On 07/25/2017 shouldn't is feeling tired and sleepy, she is relating that to taking Keppra, she is feeling dizzy when she tries to stand up and walk, otherwise no complaints at this time. Objective - Vital Signs Vital signs: Vital Signs Temp 97.6 F 07/25/17 08:00 Pulse 74 07/25/17 11:51 Resp 14 07/25/17 11:34 BP 86/53 07/25/17 11:34 Pulse Ox 94 L 07/25/17 11:34 Intake & Output 07/24/17 07/25/17 07/25/17 18:59 06:59 18:59 Intake Total 710 250 Output Total 0 Balance 710 250 Weight 84.2 kg 84.2 kg Intake: IV 0 10 0.9 KVO 0 10 Intake, IV Titration 100 Amount levETIRAcetam IV 1,000 mg 100 In Saline 1 100ml.bag @ 400 mls/hr IVPB ONCE STA Rx#:[id number] Oral 610 240 Output: Urine 0 Other: # Voids 1 1 - Exam Head normocephalic and atraumatic Neck supple no JVD no goiter Lungs clear to auscultation bilaterally no wheezing or crackles Heart regular rate and rhythm S1-S2, no rub or gallop Abdomen is soft nontender nondistended positive bowel sounds no hepatosplenomegaly Extremities no edema Neuro alert and orientated to 3 - Labs CBC & Chem 7: 07/25/17 05:29 07/25/17 05:29 Labs: Abnormal Lab Results - Last 24 Hours (Table) 07/24/17 07/24/17 07/25/17 Range/Units 16:52 21:21 05:29 RBC 3.58 L (3.80-5.40) m/uL Hgb 10.8 L (11.4-16.0) gm/dL RDW 17.0 H (11.5-15.5) % Sodium (137-145) mmol/L BUN (7-17) mg/dL Creatinine (0.52-1.04) mg/dL Glucose (74-99) mg/dL POC Glucose (mg/dL) 142 H 134 H (75-99) mg/dL Calcium (8.4-10.2) mg/dL Phosphorus (2.5-4.5) mg/dL AST (14-36) U/L ALT (9-52) U/L Alkaline Phosphatase (38-126) U/L Total Protein (6.3-8.2) g/dL Albumin (3.5-5.0) g/dL 07/25/17 07/25/17 07/25/17 Range/Units 05:29 05:42 11:27 RBC (3.80-5.40) m/uL Hgb (11.4-16.0) gm/dL RDW (11.5-15.5) % Sodium 134 L (137-145) mmol/L BUN 28 H (7-17) mg/dL Creatinine 5.60 H* (0.52-1.04) mg/dL Glucose 53 L (74-99) mg/dL POC Glucose (mg/dL) 72 L 175 H (75-99) mg/dL Calcium 10.7 H (8.4-10.2) mg/dL Phosphorus 4.9 H (2.5-4.5) mg/dL AST 149 H (14-36) U/L ALT 228 H (9-52) U/L Alkaline Phosphatase 178 H (38-126) U/L Total Protein 5.5 L (6.3-8.2) g/dL Albumin 3.3 L (3.5-5.0) g/dL Assessment and Plan Plan: 1. Syncope possibly secondary to seizure. Patient evaluated by cardiology no evidence of high degree AV block. Neurology has placed patient on Keppra 2. History of coronary artery disease with prior CABG and multiple stent placement 3. End-stage renal disease on hemodialysis, nephrology following 4. Chronic hypotension maintained on midodrine. 5. Type 2 diabetes 6. Mixed hyperlipidemia 7. Elevated troponin likely secondary to abnormal renal function. Patient denies chest pain. EKG showed no acute findings. She was seen by cardiology. 8. Elevated LFTs. Possibly related to patient's hypotension. Continue to monitor statin discontinued. No abdominal pain. History of cholecystectomy. 9. Anemia of chronic kidney disease on Aranesp Consult physical therapy DVT prophylaxis subcu heparin Patient will have hemodialysis this afternoon Possible discharge to home tomorrow if stable
[2017-07-25] MEDS: ONDANSETRON 4 MG/2 ML VIAL IVP PRN (12:38)
[2017-07-25] MEDS ORDERED: MIDODRINE 5 MG TAB PO ONE (14:20)
--- NOTE | 2017-07-25 14:51 | PN ---
PROGRESS NOTE Patient is seen for followup for end-stage renal disease. She is scheduled for hemodialysis today. Currently patient is comfortable. She has not had any more seizures. She is maintained on Keppra. Her blood pressure is also improved with systolic at about 112-150 mmHg. EXAMINATION: Blood pressure this morning was back down to 86/53, heart rate 74 per minute, patient is afebrile. Examination of the heart S1, S2. Examination lungs bilateral breath sounds are heard. Abdomen is soft, nontender. Examination of lower extremities shows no significant edema. OCCUPATIONAL THERAPIST REHAB MANAGER exam is grossly intact. LAB: Show potassium 5.0, hemoglobin 10.8, calcium was 10.7. ASSESSMENT: 1. End-stage renal disease, on hemodialysis on a Sunday, Sunday, Sunday schedule. The patient is scheduled for hemodialysis today. 2. Hypotension, etiology unclear. Maintained on midodrine. Cortisol levels were not low. 3. Hypercalcemia. The patient is maintained on Sensipar. She is on PhosLo for her phosphate binder, which should be changed to non calcium binder. Continue with the Sensipar as well for now, we will check the PTH level drawn as outpatient. We will also order a serum and urine immunofixation to complete the workup. Particularly given the recent persistent hypotension. 4. Chronic kidney disease, mineral bone disorder. Switch PhosLo to Renvela. Continue with Sensipar. 5. Seizures, started on Keppra. 6. Type 2 diabetes. 7. Coronary artery disease with history of coronary artery bypass surgery. PLAN: 1. Check urine immunofixation. 2. Change PhosLo to Renvela. 3. Hemodialysis today. 4. Possible discharge tomorrow. MMODL / IJN: [id number] /
[2017-07-25 16:56] LABS: Glucose,Whole Blood 139 mg/dL (75-99)
[2017-07-25] MEDS: SEVELAMER 800 MG TAB PO SCH (17:46)
[2017-07-25] MEDS: CINACALCET 30 MG TAB PO SCH (20:49)
[2017-07-25] MEDS: CLOPIDOGREL 75 MG TAB PO SCH (20:50)
[2017-07-25] MEDS: SERTRALINE 50 MG TAB PO SCH (20:50)
[2017-07-25] MEDS: ASPIRIN 81 MG PO SCH (20:50)
[2017-07-25] MEDS: MONTELUKAST 10 MG TAB PO SCH (20:50)
[2017-07-25] MEDS: PANTOPRAZOLE 40 MG TABLET PO SCH (20:50)
[2017-07-25 21:10] LABS: Glucose,Whole Blood 148 mg/dL (75-99)
[2017-07-25] MEDS: INSULIN DETEMIR 100 UNIT/ML 10 ML VIAL SQ SCH (21:13)
[2017-07-25] MEDS: ALPRAZolam 0.25 MG TAB PO SCH (22:53)
--- NOTE | 2017-07-26 00:30 | P.PN ---
Subjective Progress Note Date: 07/25/17 This patient is a 62 year old female who seen yesterday for syncope vs. seizure. The patient had a 3rd degree heart block and had epsiode of question seizure, so she was transferred to the ICU this afternoon. According to the daughter who was there at the bedside she had an episode of shaking and tremulousness. Her eyes rolled back. This occurred on 2 separate occasions. She was transferred to the intensive care unit for close monitoring. The patient was evaluated by cardiology as there was concern for third-degree heart block however Dr. Engle has reviewed her cardiac history and does not feel this was the case for a cause of her unresponsiveness. Patient did undergo a routine EEG today which was reviewed. EEG reveals mild slowing with occasional sharp wave activity noted. We have recommended the patient to be placed on anticonvulsant therapy at this time. Patient was initiated on Keppra this morning with a loading dose. We will obtain a Keppra blood level in 24 hours for monitoring. She was transferred out of the intensive care unit today. She is much more awake and alert at this time. She is being treated for history of severe hypotension and we will await further recommendations from cardiology. Her overall prognosis at this time remains guarded. We have reviewed the EEG results today with the patient. Patient has been complaining of some tiredness earlier this morning. This evening she appears to be doing better. We are waiting her Keppra blood level to return from the laboratory. She has had no further seizure events. We will continue close neurological follow-up with this patient during this admission. Her overall prognosis at this time remains guarded. Objective - Vital Signs Vital signs: Vital Signs Temp 97.3 F L 07/25/17 20:00 Pulse 81 07/25/17 20:00 Resp 16 07/25/17 20:00 BP 130/55 07/25/17 20:00 Pulse Ox 98 07/25/17 20:00 Intake & Output 07/25/17 07/25/17 07/26/17 06:59 18:59 06:59 Intake Total 490 Output Total 0 Balance 490 Weight 84.2 kg 84.2 kg Intake: IV 10 0.9 KVO 10 Oral 480 Output: Urine 0 Other: # Voids 1 1 - Exam Physical Examination: PHYSICAL EXAMINATION: Patient is resting comfortably in bed. VITAL SIGNS: Blood pressure is [1:30/55]. Heart rate is [81]. Respiration is [16 ]. Temperature is [97.3]. HEENT: Head is atraumatic, neck is supple, there were no carotid bruits. CHEST: Lungs are clear to auscultation and percussion. CARDIAC: S1, S2 normal rate and rhythm. There is no murmur. ABDOMEN: Soft and nontender. Bowel sounds are present. EXTREMITIES: There is no pedal edema. Peripheral pulses are present. Neurological examination: Patient has a nonfocal neurological examination at this time. She is much more awake and alert and orientedx 3. She is following all simple commands. There is no focal motor deficit on examination. Deep tendon reflexes are 1+ and symmetric. Plantar responses flexor bilaterally. - Labs CBC & Chem 7: 07/25/17 05:29 07/25/17 05:29 Labs: Abnormal Lab Results - Last 24 Hours (Table) 07/25/17 07/25/17 07/25/17 Range/Units 05:29 05:29 05:42 RBC 3.58 L (3.80-5.40) m/uL Hgb 10.8 L (11.4-16.0) gm/dL RDW 17.0 H (11.5-15.5) % Sodium 134 L (137-145) mmol/L BUN 28 H (7-17) mg/dL Creatinine 5.60 H* (0.52-1.04) mg/dL Glucose 53 L (74-99) mg/dL POC Glucose (mg/dL) 72 L (75-99) mg/dL Calcium 10.7 H (8.4-10.2) mg/dL Phosphorus 4.9 H (2.5-4.5) mg/dL AST 149 H (14-36) U/L ALT 228 H (9-52) U/L Alkaline Phosphatase 178 H (38-126) U/L Total Protein 5.5 L (6.3-8.2) g/dL Albumin 3.3 L (3.5-5.0) g/dL 07/25/17 07/25/17 07/25/17 Range/Units 11:27 16:54 21:08 RBC (3.80-5.40) m/uL Hgb (11.4-16.0) gm/dL RDW (11.5-15.5) % Sodium (137-145) mmol/L BUN (7-17) mg/dL Creatinine (0.52-1.04) mg/dL Glucose (74-99) mg/dL POC Glucose (mg/dL) 175 H 139 H 148 H (75-99) mg/dL Calcium (8.4-10.2) mg/dL Phosphorus (2.5-4.5) mg/dL AST (14-36) U/L ALT (9-52) U/L Alkaline Phosphatase (38-126) U/L Total Protein (6.3-8.2) g/dL Albumin (3.5-5.0) g/dL Assessment and Plan (1) Vasovagal syncope Current Visit: Yes Status: Acute Code(s): R55 - SYNCOPE AND COLLAPSE SNOMED Code(s): 510518004 (2) Hypotension Current Visit: Yes Status: Acute Code(s): I95.9 - HYPOTENSION, UNSPECIFIED SNOMED Code(s): 44438058 (3) Non-STEMI (non-ST elevated myocardial infarction) Current Visit: Yes Status: Acute Code(s): I21.4 - NON-ST ELEVATION (NSTEMI) MYOCARDIAL INFARCTION SNOMED Code(s): 483181752 (4) Bradycardia Current Visit: No Status: Acute Code(s): R00.1 - BRADYCARDIA, UNSPECIFIED SNOMED Code(s): 26390484 (5) End stage renal disease on dialysis Current Visit: No Status: Acute Code(s): N18.6 - END STAGE RENAL DISEASE SNOMED Code(s): 682561395 Plan: This patient is a 62-year-old female who is being evaluated for symptoms suggesting seizure disorder. Patient had several seizure-like events yesterday as she was being evaluated for a third degree heart block versus seizure. She had 2 events that were witnessed by her daughter. She was transferred to the intensive care unit. She was transferred out of the intensive care unit this morning and seems to be making good progress. Her EEG was reviewed and did reveal some abnormalities and we recommended placing the patient on anticonvulsant therapy. She was started on Keppra for further management of underlying seizure disorder. Cardiology has seen the patient and feel that there is no evidence of third degree AV block and she does not require pacemaker insertion at this time. Patient's blood pressure has shown slight improvement today. We will await further recommendations from cardiology. We will continue the patient on current dose of Keppra. We will obtain a Keppra blood level tomorrow morning and adjust her dose as needed. Case was discussed at length today with the patient at bedside. Patient did experience some tiredness earlier this morning which she attributes to the Keppra. We are still awaiting the Keppra blood level to return from the laboratory. All of her questions were answered. We will continue to follow her closely during this admission. Patient states she is being considered for discharge home tomorrow. She may follow-up in the outpatient neurology clinic in 3-4 weeks. Overall prognosis at this time remains guarded.
[2017-07-26] MEDS: INSULIN ASPART 100 UNIT/ML 1 ML 10 ML VIAL SQ SCH ×3 (05:59→17:12)
[2017-07-26 06:04] LABS: Glucose,Whole Blood 57 mg/dL (75-99)
[2017-07-26 06:21] LABS: Glucose,Whole Blood 73 mg/dL (75-99)
[2017-07-26] MEDS: MIDODRINE 5 MG TAB PO SCH ×3 (06:37→17:12)
[2017-07-26] MEDS: SEVELAMER 800 MG TAB PO SCH ×3 (06:37→17:11)
[2017-07-26 06:39] VITALS: PULSE 81; RESP 18
[2017-07-26 06:53] LABS: Anisocytosis Slight; Basophils # (A) 0.1 k/uL (0-0.2); Basophils % (A) 1 %; Eosinophils # (A) 0.2 k/uL (0-0.7); Eosinophils % (A) 3 %; HCT 38.4 % (34.0-46.0); HGB 11.6 gm/dL (11.4-16.0); Hypochromasia Marked; Lymphocytes # (A) 1.6 k/uL (1.0-4.8); Lymphocytes % (A) 18 %; MCH 30.1 pg (25.0-35.0); MCHC 30.3 g/dL (31.0-37.0); MCV 99.4 fL (80.0-100.0); Macrocytosis Slight; Mean Platelet Volume 8.7; Monocytes # (A) 0.5 k/uL (0-1.0); Monocytes % (A) 6 %; Neutrophils # (A) 6.3 k/uL (1.3-7.7); Neutrophils % (A) 71 %; Platelet Count 173 k/uL (150-450); RBC 3.86 m/uL (3.80-5.40); RDW 17.7 % (11.5-15.5); WBC 8.8 k/uL (3.8-10.6)
[2017-07-26 07:22] LABS: Albumin 3.7 g/dL (3.5-5.0); Phosphorus 3.6 mg/dL (2.5-4.5); Potassium 4.7 mmol/L (3.5-5.1); Total Bilirubin 0.5 mg/dL (0.2-1.3)
[2017-07-26] MEDS: levETIRAcetam 500 MG TAB PO SCH (09:01)
[2017-07-26] MEDS: HEPARIN SODIUM,PORCINE 5,000 UNIT/ML 1 ML VIAL SQ SCH (09:01)
[2017-07-26] MEDS: GABAPENTIN 100 MG CAP PO SCH (09:01)
[2017-07-26] MEDS: ALLOPURINOL 100 MG TAB PO SCH (09:01)
--- NOTE | 2017-07-26 10:06 | P.PN ---
Subjective Patient is lying comfortably in bed. She has not had any loss of consciousness no seizure activity. Her rhythm was stable. She continues to have PVCs. 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 Rothman as an outpatient. No further inpatient cardiac evaluation of investigations needed. Patient may go home from a cardiac standpoint whenever approved by the medical team and neurology Objective - Vital Signs Vital signs: Vital Signs Temp 97.5 F L 07/26/17 09:03 Pulse 81 07/26/17 09:03 Resp 18 07/26/17 09:03 BP 122/68 07/26/17 09:03 Pulse Ox 98 07/26/17 09:03 Intake & Output 07/25/17 07/26/17 07/26/17 18:59 06:59 18:59 Intake Total 490 Output Total 0 Balance 490 Weight 84.2 kg 78.2 kg Intake: IV 10 0.9 KVO 10 Oral 480 Output: Urine 0 Other: # Voids 1 3 1 - Labs CBC & Chem 7: 07/26/17 06:14 07/26/17 06:14 Labs: Abnormal Lab Results - Last 24 Hours (Table) 07/25/17 07/25/17 07/25/17 Range/Units 11:27 16:54 21:08 MCHC (31.0-37.0) g/dL RDW (11.5-15.5) % BUN (7-17) mg/dL Creatinine (0.52-1.04) mg/dL Glucose (74-99) mg/dL POC Glucose (mg/dL) 175 H 139 H 148 H (75-99) mg/dL AST (14-36) U/L ALT (9-52) U/L Alkaline Phosphatase (38-126) U/L Total Protein (6.3-8.2) g/dL 07/26/17 07/26/17 07/26/17 Range/Units 05:57 06:14 06:14 MCHC 30.3 L (31.0-37.0) g/dL RDW 17.7 H (11.5-15.5) % BUN 18 H (7-17) mg/dL Creatinine 4.32 H (0.52-1.04) mg/dL Glucose 58 L (74-99) mg/dL POC Glucose (mg/dL) 57 L (75-99) mg/dL AST 88 H (14-36) U/L ALT 200 H (9-52) U/L Alkaline Phosphatase 198 H (38-126) U/L Total Protein 6.0 L (6.3-8.2) g/dL 07/26/17 Range/Units 06:18 MCHC (31.0-37.0) g/dL RDW (11.5-15.5) % BUN (7-17) mg/dL Creatinine (0.52-1.04) mg/dL Glucose (74-99) mg/dL POC Glucose (mg/dL) 73 L (75-99) mg/dL AST (14-36) U/L ALT (9-52) U/L Alkaline Phosphatase (38-126) U/L Total Protein (6.3-8.2) g/dL
[2017-07-26 12:09] LABS: Glucose,Whole Blood 256 mg/dL (75-99)
[2017-07-26 12:28] VITALS: BP 116/54; TEMP 97.6
--- NOTE | 2017-07-26 14:08 | PN ---
PROGRESS NOTE Patient is seen for followup for end-stage renal disease. She was dialyzed yesterday. We had about close to 2 L of ultrafiltration. Patient tolerated the procedure well. Her blood pressure remains on the lower side. However, this morning we have a systolic of 122 mmHg. Patient is maintained on midodrine 10 mg t.i.d. PHYSICAL EXAMINATION: Today, blood pressure was 116/54, heart rate 76 per minute, she is afebrile. Examination of the heart, S1, S2. Examination of the lungs, bilateral breath sounds are heard. Abdomen is soft, nontender. Examination of the lower extremities shows no evidence of edema. CLINICAL SUPPORT NURSE exam is grossly intact. LABS: Show sodium 142, potassium 4.7, hemoglobin 11.6 g/dL. Albumin is 3.7. ASSESSMENT: 1. End-stage renal disease, on hemodialysis on a Sunday, Sunday, Sunday schedule. Patient will be dialyzed tomorrow. She can be scheduled as outpatient if she is discharged today. 2. Hypotension, maintained on midodrine. 3. Chronic kidney disease mineral bone disorder, currently stable. Patient's calcium had been running slightly on the higher side. It is improved today. She is maintained on non-calcium binders. The PhosLo was discontinued yesterday. She should also continue with the Sensipar. PLAN: Hemodialysis in a.m. Patient is stable for discharge and can have her dialysis as outpatient. MMMECCAL / SÁNCHEZN: [id number] /
--- NOTE | 2017-07-26 15:02 | CDI ---
Last Revision, April 2017 Documentation Clarification Form Date: 07/26/2017 2:39:00 PM From: Kayli Martin RN, CCDS Admit Date: 07/21/2017 1:23:00 PM Patient Name: Lavern Mcqueen Visit Number: [id number] Discharge Date: ATTENTION: The Clinical Documentation Specialists (CDI) and [facility] Coding Staff appreciate your assistance in clarifying documentation. Please respond to the clarification below the line at the bottom and electronically sign. The CDI & [facility] Coding staff will review the response and follow-up if needed. Please note: Queries are made part of the Legal Health Record. If you have any questions, please contact the author of this message via ITS. Dr. James Sanchez Seizure disorder, several seizure-like events is documented in your consult and ongoing progress notes Patient history/risk factors: ESRD on HD, CAD, Angina, Diabetes mellitus, Hypertension, Hx of [place] Clinical Indicators: Present after shaking and tremulousness. Her eyes rolled back. This occurred on 2 separate occasions. EEG reveals mild slowing with occasional sharp wave activity noted. Vital Signs: 130/55 81 16 97. 3 98 % Treatment: Keppra PO Monitor Labs Seizure precautions In your professional opinion, please further clarify if the condition is: Epileptic (if known specify Type of Seizure, Severity, and Associated Cause) Complex partial seizure Generalized seizure Localization-related (focal) (partial) SPELL other epilepsy Other condition (please specify) Unable to determine Please continue to document in your progress notes and discharge summary in order to capture severity of illness and risk of mortality. Include clinical findings that support your diagnosis. MTDD
--- NOTE | 2017-07-26 15:35 | P.DS ---
Providers Date of admission: 07/21/17 13:23 Expected date of discharge: 07/26/17 Attending physician: Kyle Campos Consults: 07/21/17 13:23 Consult Physician Urgent Consulting Provider: Haseeb Cuenca Consult Reason/Comments: nstemi Do you want consulting provider notified?: Yes 07/21/17 13:25 Consult Physician Urgent Consulting Provider: Gricelda Andrea Consult Reason/Comments: known Do you want consulting provider notified?: Yes 07/22/17 12:45 Consult Physician Routine Consulting Provider: James Sanchez Consult Reason/Comments: syncope Do you want consulting provider notified?: Yes 07/23/17 14:34 Consult Physician Routine Consulting Provider: Trever Darden Consult Reason/Comments: ICU management Do you want consulting provider notified?: Yes Primary care physician: Kylepiyush Campos [facility] Course: Discharge diagnosis 1. Syncope possibly secondary to seizure. Patient evaluated by cardiology no evidence of high degree AV block. Neurology has placed patient on Keppra 2. History of coronary artery disease with prior CABG and multiple stent placement 3. End-stage renal disease on hemodialysis, nephrology following 4. Chronic hypotension maintained on midodrine. 5. Type 2 diabetes 6. Mixed hyperlipidemia 7. Elevated troponin likely secondary to abnormal renal function. Patient denies chest pain. EKG showed no acute findings. She was seen by cardiology. 8. Elevated LFTs. Possibly related to patient's hypotension. Continue to monitor. statin discontinued. No abdominal pain. History of cholecystectomy. 9. Anemia of chronic kidney disease on [facility] course This is a 62-year-old female with a very complex past medical history noted below significant for end-stage renal disease on hemodialysis, history of coronary artery disease with prior CABG, and chronic hypotension maintained on midodrine who presented to the hospital with a syncopal episode. This happened yesterday when patient was trying to get ready for dialysis. Apparently she lost consciousness without head trauma. There was reported loss of bowel and bladder control. Patient was brought to the emergency room. Computed tomography scan of the brain was unremarkable. Patient said that her blood pressure usually runs low in the 90s and 80s. She has been taking midodrine as directed. She was evaluated in the emergency room and her blood pressure was 95 /57. She was admitted to the hospital further evaluation. Troponin was significantly elevated which appears to be chronic. Patient denies any chest pain or shortness of breath. She is dizzy when she get up and walk around. Neurology and cardiology were consulted in regards to patient's syncopal episode. There were concerns about possible seizure. She was placed on seizure precautions. During this admission patient required a transfer to the ICU. She had an A team called with possible seizure, hypotension and bradycardia. Samantha Dueñas was notified. Patient was given IV fluid bolus of 500 mL., Dose of atropine. Patient also given a dose of IV Ativan 1 mg. Family at bedside. Apparently daughter had entered the room and noticed that her mom was shaking and eyes were rolled in the back of her head with drooling. Patient had an arrhythmia possibly a third degree block. Cardiology is following. She is scheduled for an EEG. EEG was mildly abnormal in diffuse fashion due to slight slowing of the EEG background. EEG failed to reveal any focal, lateralized or epileptic activity. There were generalized sharp wave was noted on 2 occasions. Neurology following. They did start patient on IV Keppra and give her a bolus in the ICU. Patient was able to be transferred out of the ICU. She's had no further seizure activity. And Keppra level is within normal range. Likely her syncopal episode was related to seizures. High degree AV block was ruled out by cardiology. She will follow-up with neurology in the outpatient setting. She had some hypoglycemia today. Has had a slight decrease in her by mouth intake. We'll decrease her Lantus from 35 units to 30 units daily. And will have her monitor blood sugars at home. We'll make further adjustments in the outpatient setting. Her LFTs have been slightly elevated likely related to her hypotension and they are trending down. Statin discontinued during this admission. And will have repeat LFTs completed in 1 week. And then can discuss restarting the statin at that time. Patient followed by nephrology they have discontinued the PhosLo due to some hypercalcemia which has now resolved. And if placed her on renvela. Patient is to continue with her current hemodialysis schedule. She is medically stable for discharge. Her symptoms are improving. She does still have some mild dizziness. She was seen by physical therapy. Patient does not want to go to rehab. And she is refusing home care. She wants to go home with her family. She does have a walker. Patient is medically stable for discharge. Cleared by consulting physicians. Please refer to chart for any further details. I performed an examination of the patient and discussed their management with the physician Keg Washer. I have reviewed the Physician Keg Washer's notes and agree with the documented findings and plan of care Patient Condition at Discharge: Stable Plan - Discharge Summary Discharge Rx Participant: No New Discharge Prescriptions: New levETIRAcetam [Keppra] 500 mg PO Q12HR #60 tab Sevelamer [Renvela] 1,600 mg PO TID-W/MEALS #90 tab Continue Gabapentin [Neurontin] 100 mg PO BID Allopurinol [Zyloprim] 100 mg PO DAILY Omeprazole [PriLOSEC] 20 mg PO DAILY Sertraline [Zoloft] 50 mg PO HS Insulin Aspart [NovoLOG (formulary)] See Protocol SQ AC-TID Cinacalcet HCl [Sensipar] 30 mg PO HS Montelukast [Singulair] 10 mg PO HS #30 tab Clopidogrel [Plavix] 75 mg PO HS #30 tab Nitroglycerin Sl Tabs [Nitrostat] 0.4 mg SUBLINGUAL Q5M PRN #25 tab PRN Reason: Chest Pain Aspirin [Adult Low Dose Aspirin EC] 81 mg PO HS ALPRAZolam [Xanax] 0.25 mg PO HS Pantoprazole [Protonix] 40 mg PO HS Midodrine HCl [ProAmatine] 10 mg PO BID Changed Insulin Glargine [Lantus] 30 unit SQ HS #0 Discontinued Atorvastatin [Lipitor] 40 mg PO HS Calcium Acetate [PhosLo] 2,001 mg PO AC-TID Carvedilol [Coreg] 3.125 mg PO BID PRN PRN Reason: Blood Pressure - High Discharge Medication List Allopurinol [Zyloprim] 100 mg PO DAILY 11/15/14 [History] Gabapentin [Neurontin] 100 mg PO BID 11/15/14 [History] Omeprazole [PriLOSEC] 20 mg PO DAILY 01/31/15 [History] Sertraline [Zoloft] 50 mg PO HS 03/03/15 [History] Cinacalcet HCl [Sensipar] 30 mg PO HS 05/06/16 [History] Insulin Aspart [NovoLOG (formulary)] See Protocol SQ AC-TID 12/17/16 [History] Montelukast [Singulair] 10 mg PO HS #30 tab 06/30/16 [Rx] Clopidogrel [Plavix] 75 mg PO HS #30 tab 04/05/17 [Rx] Nitroglycerin Sl Tabs [Nitrostat] 0.4 mg SUBLINGUAL Q5M PRN #25 tab 05/31/17 [Rx ] Aspirin [Adult Low Dose Aspirin EC] 81 mg PO HS 06/18/17 [History] ALPRAZolam [Xanax] 0.25 mg PO HS 07/21/17 [History] Midodrine HCl [ProAmatine] 10 mg PO BID 07/21/17 [History] Pantoprazole [Protonix] 40 mg PO HS 07/21/17 [History] Insulin Glargine [Lantus] 30 unit SQ HS #0 07/26/17 [Rx] Sevelamer [Renvela] 1,600 mg PO TID-W/MEALS #90 tab 07/26/17 [Rx] levETIRAcetam [Keppra] 500 mg PO Q12HR #60 tab 07/26/17 [Rx] Follow up Appointment(s)/Referral(s): Kyle Campos MD [Primary Care Provider] - 1 Week Song Rtohman MD [STAFF PHYSICIAN] - 1 Week James Sanchez MD [STAFF PHYSICIAN] - 3 Weeks Activity/Diet/Wound Care/Special Instructions: May go home from a cardiac standpoint and follow with Dr. Rothman, dated July 2017 Diet: cardiac, renal , diabetic Activity: as tolerated Discharge Disposition: HOME SELF-CARE
--- NOTE | 2017-07-26 15:36 | CDI ---
Last Revision, April 2017 Documentation Clarification Form Date: 07/26/2017 3:12:00 PM From: Kayli Martin Admit Date: 07/21/2017 1:23:00 PM Patient Name: Lavern Mcqueen Visit Number: [id number] Discharge Date: ATTENTION: The Clinical Documentation Specialists (CDI) and [facility] Coding Staff appreciate your assistance in clarifying documentation. Please respond to the clarification below the line at the bottom and electronically sign. The CDI & [facility] Coding staff will review the response and follow-up if needed. Please note: Queries are made part of the Legal Health Record. If you have any questions, please contact the author of this message via ITS. Dr. Levi Pierson History/Risk Factors: CAD,/Angina Heart failure, Diabetes mellitus, Hypertension ESRD, Chronic hypotension, Chronic hypoxic respiratory failure with oxygen 2/L during dialysis Clinical Indicators: Present with syncope and weakness. Missed dialysis x 2 days. 07/23/17 Your ongoing progress notes has CHF with and ejection fraction of 25-30 % in addition to mitral regurgitation. VS/Pulse OX: 85/48 83 16 96 % 2/L NC Chest x-ray: 07/21/17 small posterior left pleural effusion BNP: [id number] Echocardiogram Results: EF 25-30 % , moderate degree of pulmonary hypertension Treatment: Coreg ( Hold) Monitor Labs Monitor I/O VS In your professional opinion, can you please clarify the acuity and type of CHF if known? Systolic Heart Failure: Acute Chronic Acute on Chronic Diastolic Heart Failure: Acute Chronic Acute on Chronic Systolic & Diastolic Heart Failure: Acute Chronic Acute on Chronic Heart Failure Unable to Determine Other, please specify Please continue to document in your progress notes and discharge summary in order to capture severity of illness and risk of mortality. Include clinical findings that support your diagnosis. Systolic heart failure, chronic MTDD
[2017-07-26 16:11] LABS: Glucose,Whole Blood 166 mg/dL (75-99)
--- NOTE | 2017-07-30 11:32 | CDI ---
Last Revision, April 2017 Documentation Clarification Form Date: 07/26/2017 2:39:00 PM From: Kayli Martin RN, CCDS Admit Date: 07/21/2017 1:23:00 PM Patient Name: Lavern Mcqueen Visit Number: [id number] Discharge Date: ATTENTION: The Clinical Documentation Specialists (CDI) and [facility] Coding Staff appreciate your assistance in clarifying documentation. Please respond to the clarification below the line at the bottom and electronically sign. The CDI & [facility] Coding staff will review the response and follow-up if needed. Please note: Queries are made part of the Legal Health Record. If you have any questions, please contact the author of this message via ITS. Dr. James Sanchez Seizure disorder, several seizure-like events is documented in your consult and ongoing progress notes Patient history/risk factors: ESRD on HD, CAD, Hypertension, Angina DM type 2, Clinical Indicators: Present after shaking and tremulousness. Her eyes rolled back. This occurred on 2 separate occasions. EEG reveals mild slowing with occasional sharp wave activity noted. Vital Signs: 130/55 81 16 97. 3 98 % Treatment: Keppra PO Monitor Labs Seizure precautions In your professional opinion, please further clarify if the condition is: Epileptic (if known specify Type of Seizure, Severity, and Associated Cause) Complex partial seizure Generalized seizure Localization-related (focal) (partial) SPELL other epilepsy Other condition (please specify) Unable to determine Please continue to document in your progress notes and discharge summary in order to capture severity of illness and risk of mortality. Include clinical findings that support your diagnosis. MTDD
== END 2017-07-26 17:42 | disposition home or self-care (01) | DRG 100 ==
LOC: EC 10:03 → 6SEL 13:23 → 6ICU 07-23 14:02 → 6SEL 07-24 06:35
PROVIDERS: ADMIT Internal Medicine; ATTEND Internal Medicine
PROC: 5A1D70Z Performance of Urinary Filtration, Intermittent, Less than 6 Hours Per Day (ICD-10-PCS; principal; 2017-07-25)
DX: R56.9 Unspecified convulsions (principal); N18.6 End stage renal disease; I13.2 Hypertensive heart and chronic kidney disease with heart failure and with stage 5 chronic kidney disease, or end stage renal disease; I44.2 Atrioventricular block, complete; J96.11 Chronic respiratory failure with hypoxia; I95.89 Other hypotension; I08.1 Rheumatic disorders of both mitral and tricuspid valves; I42.9 Cardiomyopathy, unspecified; E11.22 Type 2 diabetes mellitus with diabetic chronic kidney disease; E11.42 Type 2 diabetes mellitus with diabetic polyneuropathy; D63.1 Anemia in chronic kidney disease; E03.9 Hypothyroidism, unspecified; E11.649 Type 2 diabetes mellitus with hypoglycemia without coma; E20.9 Hypoparathyroidism, unspecified; E78.2 Mixed hyperlipidemia; F32.9 Major depressive disorder, single episode, unspecified; F41.9 Anxiety disorder, unspecified; I25.10 Atherosclerotic heart disease of native coronary artery without angina pectoris; I25.2 Old myocardial infarction; I27.20 Pulmonary hypertension, unspecified; I45.5 Other specified heart block; I50.9 Heart failure, unspecified; M89.9 Disorder of bone, unspecified; Z79.4 Long term (current) use of insulin; Z79.82 Long term (current) use of aspirin; Z79.899 Other long term (current) drug therapy; Z82.49 Family history of ischemic heart disease and other diseases of the circulatory system; Z83.3 Family history of diabetes mellitus; Z90.49 Acquired absence of other specified parts of digestive tract; Z95.1 Presence of aortocoronary bypass graft; Z95.5 Presence of coronary angioplasty implant and graft; Z96.1 Presence of intraocular lens; Z98.41 Cataract extraction status, right eye; Z98.42 Cataract extraction status, left eye; Z99.2 Dependence on renal dialysis; R74.8 Abnormal levels of other serum enzymes; Z88.1 Allergy status to other antibiotic agents; Z88.5 Allergy status to narcotic agent; Z88.0 Allergy status to penicillin; Z91.013 Allergy to seafood
CPT/HCPCS: 36415; 70450; 71046; 72125; 72170; 80048; 80053; 80061; 80177; 82533; 82550; 82553; 83036; 83735; 83880; 84100; 84484; 85025; 85610; 85730; 86334; 90935; 93005; 95819; 96361; 96365; 96376; 99291